=== PATIENT | male | born 1940 | race Caucasian/White ===

== ENCOUNTER 2020-08-26 08:42 | Inpatient (IN) | payer OTHER, MEDICARE, SELFPAY ==
--- NOTE | ~2020-08-26 | CT_ITS ---
EXAMINATION: CT ABDOMEN AND PELVIS WITHOUT CONTRAST CLINICAL INFORMATION: Nausea, vomiting and abdominal pain. Dark emesis. COMPARISON: None TECHNIQUE: Multidetector volumetric imaging was performed from the superior aspect of the liver through the pubic symphysis. Sagittal and coronal reformatted images were obtained on the technologist's workstation. This CT examination was performed using dose optimization techniques as appropriate, variously including the following: *Automated exposure control *Adjustment of mA and/or kV according to patient size (this includes techniques or standardized protocols for targeted exams where dose is matched to indication/reason for exam; i.e. extremities or head) *Use of iterative reconstruction technique DLP: 835 mGy-cm FINDINGS: LUNG BASES: The visualized lung bases are unremarkable. LIVER, GALLBLADDER, AND BILIARY TREE: The liver is normal in size, shape, and attenuation. There are several hypodense liver lesions. Largest right hepatic lobe lesion measures 1.9 cm and left hepatic lobe lesion measures 1.4 cm. The measures cystic density. No solid lesions seen. There is no intraparenchymal dislocation.. The gallbladder is unremarkable with no evidence of radiopaque gallstones, gallbladder wall thickening, or obvious pericholecystic inflammatory changes. PANCREAS: Unremarkable. SPLEEN: There is a 1.4 cm hypodense lesion. The spleen is otherwise unremarkable. ADRENAL GLANDS: The right adrenal gland is unremarkable. The left adrenal gland is not visualized. In its place a small calcifications KIDNEYS AND URETERS: The left kidney is small and atrophied. The right kidney appears normal size. There is bilateral perinephric stranding. There is a nonobstructive 6 radiopaque calculi mid pole left kidney. There is left renal upper pole cortex atrophy with calcification. BLADDER: Unremarkable. GASTROINTESTINAL TRACT: There is a left lower quadrant colostomy with diffuse sigmoid diverticulosis. No mural thickening seen. There are prominent multiple small bowel air-fluid levels. There is an anastomotic suture line along the ascending colon/small bowel likely anastomosis in right lower quadrant with proximal small bowel dilatation likely site of narrowing. However hard to say if this is narrowing, mural thickening from underlying inflammation or recurrent lesion. There is presacral soft tissue thickening, scarring and sutures representing a small soft tissue mass in presacral region. ABDOMINAL WALL: There is a left-sided colostomy with colonic diverticulosis. LYMPH NODES: No abnormal lymph nodes seen. VASCULAR: Unremarkable. PELVIC VISCERA: The prostate gland is normal size. OSSEOUS STRUCTURES: Degenerative disc changes with vacuum disc phenomena L4-L5 disc level. CT/CT abdomen pelvis wo con IMPRESSION: Extensive postsurgical changes in the presacral region with a soft tissue mass likely a huge granulation tissue. There is a anastomotic suture line in the right lower quadrant likely an anastomosis between small bowel and the right colon. Proximal to this there are multiple dilated small bowel loops with air-fluid levels. This may be a site of partial obstruction or narrowing. There is some mural thickening in this region at the anastomotic site and may represent inflammation infection or recurrent underlying lesion. This area can be evaluated small bowel series if clinically deemed necessary. Left colonic diverticulosis without diverticulitis. Small atrophic kidney with diffuse cortical thinning and calcification in the upper and midpole with a small radiopaque calculi mid pole. There is no hydronephrosis seen. The left adrenal gland is not seen. There are multiple hepatic cysts.
[2020-08-26 08:48] VITALS: BP 144/72; PULSE 72; RESP 17; TEMP 36.6; O2SAT 95; BMI 23.7
--- NOTE | 2020-08-26 09:08 | ECG_ITS ---
Test Reason : WEAKNESS Blood Pressure : / mmHG Vent. Rate : 063 BPM Atrial Rate : 063 BPM P-R Int : 164 ms QRS Dur : 140 ms QT Int : 474 ms P-R-T Axes : 055 -80 036 degrees QTc Int : 485 ms Normal sinus rhythm Right bundle branch block Left anterior fascicular block Bifascicular block Abnormal ECG When compared with ECG of 13-APR-2019 09:48, Nonspecific T wave abnormality has replaced inverted T waves in Inferior leads Nonspecific T wave abnormality now evident in Anterior leads Referred By: Tenisha Yo Electronically Signed By:Tejas Alvarez
--- NOTE | 2020-08-26 09:42 | ED.ABDPAIN ---
HPI - Abdominal Pain General Chief Complaint: Abdominal Pain Stated Complaint: dehydration Time Seen by Provider: 08/26/20 08:55 Source: patient Mode of arrival: ambulatory History of Present Illness HPI narrative: 79-year-old male with a past medical history of DM, HLD, HTN, PTSD, CVA, Colon Ca, colostomy, BIBA c/o diffuse abdominal discomfort, nausea, and dark emesis x1 this morning. Also reports decreased p.o. intake and decreased BM's from colostomy bag. Reports generalized fatigue. Denies fever, chills, lightheadedness/dizziness, hematemesis, dark/bloody stool, diarrhea, CP/SOB, dysuria/hematuria, LE edema Related Data Allergies Allergy/AdvReac Type Severity Reaction Status Date / Time erythromycin base Allergy Severe TREMORS Unverified 10/28/19 15:06 [ERYTHROMYCIN BASE] morphine [MORPHINE] Allergy Severe HALLUCINATI Unverified 10/28/19 15:06 ONS acetaminophen [Percocet] Allergy Unknown Verified 10/05/18 00:00 oxycodone [Percocet] Allergy Unknown Verified 10/05/18 00:00 From COMPAZINE Allergy Severe DYSTONIA Uncoded 10/28/19 15:06 From Percocet Allergy Severe TREMORS/ORAL Uncoded 10/28/19 15:06 TATION Compazine Allergy Unknown Uncoded 10/05/18 00:00 Erythromycin Allergy Unknown Uncoded 10/05/18 00:00 Review of Systems Review of Systems Constitutional: No Fever, No Chills, + Fatigue, No Malaise ENT/Mouth: No Ear Pain, No Nasal Congestion, No sore throat, No Rhinorrhea Cardiovascular: No Chest Pain, No SOB, No Edema Respiratory: No Cough, No Dyspnea Gastrointestinal: + Nausea, + Vomiting, No Diarrhea, + Constipation, No Abdominal pain, No Hematochezia, No Melena, +Hematemesis Genitourinary: No Dysuria, No Urinary Frequency, No Hematuria Musculoskeletal: No joint pain, No Myalgias Skin: No Skin Lesions, No rash Neuro: No Weakness, No Dizziness, No Headache Yes all other systems are reviewed and are negative Physical Exam Vital Signs: Vital Signs: Last Vital Signs Temp 98 F 08/26/20 08:48 Pulse 71 08/26/20 11:28 Resp 14 08/26/20 11:28 BP 140/71 H 08/26/20 11:28 Pulse Ox 97 08/26/20 11:28 Body Mass Index 23.7 Const: General: cooperative, healthy appearing and no acute distress Orientation/consciousness: patient oriented x3 Limitations: no limitations HENMT: Head: Yes normal to inspection and Yes normocephalic Ears: hearing grossly normal bilaterally General nose exam: Normal external nose present Face and sinus: Yes normal facial exam Eyes: General: appearance normal, both eyes and all related structures EOM: EOMs intact bilaterally Neck: Neck: Yes normal visual inspection Resp: Effort & Inspection: normal respiratory effort Auscultation: clear to auscultation bilaterally, no rales, no rhonchi and no wheezes Cardio: Rate: regular rate Heart sounds: S1 normal heart sound present and S2 normal heart sound present GI: Other: Colostomy present in left lower quadrant. Colostomy bag near empty. Minimal brown stool noted Inspection: Yes normal to inspection Palpation (GI): Soft to palpation, Tenderness to palpation present (GI) in the LLQ, no guarding and not rigid Skin: Rashes: no rashes Wounds: no wounds Neuro: General: patient oriented x3, tone normal and moves all extremities Extrem: General: Yes normal to inspection Course Course Course Narrative: -mild leukocytosis of 12.4. H&H is stable, +ESTUARDO with creatinine 2.48 > will give IVF and repeat -occult stool negative CT abdomen pelvis wo con IMPRESSION: Extensive postsurgical changes in the presacral region with a soft tissue mass likely a huge granulation tissue. There is a anastomotic suture line in the right lower quadrant likely an anastomosis between small bowel and the right colon. Proximal to this there are multiple dilated small bowel loops with air-fluid levels. This may be a site of partial obstruction or narrowing. There is some mural thickening in this region at the anastomotic site and may represent inflammation infection or recurrent underlying lesion. This area can be evaluated small bowel series if clinically deemed necessary. Left colonic diverticulosis without diverticulitis. Small atrophic kidney with diffuse cortical thinning and calcification in the upper and midpole with a small radiopaque calculi mid pole. There is no hydronephrosis seen. The left adrenal gland is not seen. There are multiple hepatic cysts. >> surgery consulted. Lactic/blood cultures and empiric IV Zosyn ordered MDM - Abdominal Pain MDM Narrative Medical decision making narrative: 79-year-old male with a past medical history of DM, HLD, HTN, PTSD, CVA, Colon Ca, colostomy, BIBA c/o diffuse abdominal discomfort, nausea, and dark emesis x1 this morning. Also reports decreased p.o. intake and decreased BM's from colostomy bag. On exam VSS, NAD/well-appearing, abdomen soft with LLQ ttp, no rebound or guarding, minimal brown stool noted in colostomy bag. Concern for GI bleed vs SBO vs dehydration. Rule out metabolic/infectious etiology. Low concern for ACS Plan: EKG, labs, UA, CT AP, IVF, reassess Medical Records Attestation: I reviewed the patient's medical records. Lab Data Attestation: I reviewed the patient's lab results. Result diagrams: 08/26/20 10:08/26/20 10:01 Labs: Lab Results 08/26/20 08/26/20 08/26/20 Range/Units 10:01 10:01 10:01 WBC 12.4 H (4.8-10.8) X10*3/uL RBC 4.35 L (4.60-5.80) X10*6/uL Hgb 12.9 L (14.0-18.0) g/dl Hct 38.4 L (42-52) % MCV 88.3 (80-98) fL MCH 29.7 (27.0-33.0) pg MCHC 33.6 (31.0-36.0) g/dl RDW 14.2 (11.0-16.0) % Plt Count 230 (160-400) X10*3/uL MPV 10.5 (9.4-12.4) fL Immature Gran % (Auto) 0.2 (0.0-0.4) % Neut % (Auto) 81.5 H (45-73) % Lymph % (Auto) 9.6 L (20-40) % [place] % (Auto) 8.2 (2-11) % Eos % (Auto) 0.3 (0-4) % Baso % (Auto) 0.2 (0-2) % Lymph # (Auto) 1.2 (1.2-4.9) X10*3/uL [place] # (Auto) 1.0 (0.1-1.2) X10*3/uL Eos # (Auto) 0.0 (0.0-0.4) X10*3/uL Baso # (Auto) 0.0 (0.0-0.2) X10*3/uL Abs Immat Gran (auto) 0.03 (0.00-0.03) X10*3/uL Absolute Neuts (auto) 10.1 H (2.0-8.3) X10*3/uL Absolute Nucleated RBC 0.000 (0.0-0.012) X10*3/uL Nucleated RBC % (auto) 0.0 (0.0-0.2) /100WBC PT 12.9 (9.9-13.0) SEC INR 1.1 (0.9-1.1) APTT 29.7 (24.1-38.0) SEC Sodium 138 (135-145) mmol/L Potassium 4.1 (3.3-5.1) mmol/L Chloride 104 (96-108) mmol/L Carbon Dioxide 24 (22-29) mmol/L Anion Gap 14 (12-20) BUN 29 H (9-16) mg/dL Creatinine 2.48 H (0.5-1.4) mg/dL Estim Creat Clear Calc 24.8 Estimated GFR 25 Random Glucose 169 H (60-115) mg/dL Calcium 9.7 (8.4-10.2) mg/dL Magnesium 1.7 (1.6-2.6) mg/dL Total Bilirubin 0.8 (0.0-1.0) mg/dL Direct Bilirubin 0.3 (0.0-0.5) mg/dL AST 18 (5-37) U/L ALT 14 (0-40) U/L Alkaline Phosphatase 82 (39-117) U/L Total Protein 6.8 (6.5-8.0) g/dL Albumin 3.9 (3.5-5.0) g/dL Lipase (8-78) U/L Stool Occult Blood (NEGATIVE) 08/26/20 08/26/20 Range/Units 10:01 10:01 WBC (4.8-10.8) X10*3/uL RBC (4.60-5.80) X10*6/uL Hgb (14.0-18.0) g/dl Hct (42-52) % MCV (80-98) fL MCH (27.0-33.0) pg MCHC (31.0-36.0) g/dl RDW (11.0-16.0) % Plt Count (160-400) X10*3/uL MPV (9.4-12.4) fL Immature Gran % (Auto) (0.0-0.4) % Neut % (Auto) (45-73) % Lymph % (Auto) (20-40) % [place] % (Auto) (2-11) % Eos % (Auto) (0-4) % Baso % (Auto) (0-2) % Lymph # (Auto) (1.2-4.9) X10*3/uL [place] # (Auto) (0.1-1.2) X10*3/uL Eos # (Auto) (0.0-0.4) X10*3/uL Baso # (Auto) (0.0-0.2) X10*3/uL Abs Immat Gran (auto) (0.00-0.03) X10*3/uL Absolute Neuts (auto) (2.0-8.3) X10*3/uL Absolute Nucleated RBC (0.0-0.012) X10*3/uL Nucleated RBC % (auto) (0.0-0.2) /100WBC PT (9.9-13.0) SEC INR (0.9-1.1) APTT (24.1-38.0) SEC Sodium (135-145) mmol/L Potassium (3.3-5.1) mmol/L Chloride (96-108) mmol/L Carbon Dioxide (22-29) mmol/L Anion Gap (12-20) BUN (9-16) mg/dL Creatinine (0.5-1.4) mg/dL Estim Creat Clear Calc Estimated GFR Random Glucose (60-115) mg/dL Calcium (8.4-10.2) mg/dL Magnesium (1.6-2.6) mg/dL Total Bilirubin (0.0-1.0) mg/dL Direct Bilirubin (0.0-0.5) mg/dL AST (5-37) U/L ALT (0-40) U/L Alkaline Phosphatase (39-117) U/L Total Protein (6.5-8.0) g/dL Albumin (3.5-5.0) g/dL Lipase 22 (8-78) U/L Stool Occult Blood NEGATIVE (NEGATIVE) ECG Data Attestation: I personally reviewed and interpreted this ECG as follows: ECG interpretation date: 08/26/20 ECG interpretation time: 09:54 Interpretation: EKG normal sinus rhythm with a right bundle-branch block. Rate of 63. Nonischemic/no STEMI [facility] Past Medical History Attestation statement: The following information was validated with the patient. Medical History (Updated 08/26/20 @ 08:52 by Gianni Chan) Cancer of kidney Colon cancer Colostomy in place Diabetes type 2, controlled High cholesterol HTN (hypertension) PTSD (post-traumatic stress disorder) Stroke Social History Social History Alcohol intake: never Patient Tobacco Use Status: Never used Tobacco Use of substances other than those prescribed or required for medical reasons: No Advance Directives: No Advance Directives Information Provided: Yes
[2020-08-26 10:06] LABS: Basophils Percent Auto 0.2 % (0-2); Eosinophils Percent Auto 0.3 % (0-4); Hematocrit 38.4 % (42-52); Hemoglobin 12.9 g/dl (14.0-18.0); Imm Gran Abs Auto 0.03 X10*3/uL (0.00-0.03); Imm Gran Pct Auto 0.2 % (0.0-0.4); Lymphocytes Absolute Auto 1.2 X10*3/uL (1.2-4.9); Lymphocytes Percent Auto 9.6 % (20-40); MANUAL DIFF FLAG NO; Mean Corpuscular HGB Conc 33.6 g/dl (31.0-36.0); Mean Corpuscular Hemoglobin 29.7 pg (27.0-33.0); Mean Corpuscular Volume 88.3 fL (80-98); Mean Platelet Volume 10.5 fL (9.4-12.4); Monocytes Percent Auto 8.2 % (2-11); Neutrophils Absolute Auto 10.1 X10*3/uL (2.0-8.3); Neutrophils Percent Auto 81.5 % (45-73); Platelet Count 230 X10*3/uL (160-400); Red Blood Count 4.35 X10*6/uL (4.60-5.80); Red Cell Distribution Width 14.2 % (11.0-16.0); White Blood Count 12.4 X10*3/uL (4.8-10.8)
[2020-08-26] MEDS: ondansetron HCL 4 MG/2 ML VIAL IVPUSH (10:07)
[2020-08-26] MEDS: 0.9 % Sodium Chloride 1,000 ML 999 ML IVCONT ×2 (10:08→12:01)
[2020-08-26 10:11] LABS: OBS Int Ctl Valid YES; OBS1 NEGATIVE (NEGATIVE)
[2020-08-26 10:12] LABS: INTERNATIONAL NORM RATIO 1.1 (0.9-1.1); Prothrombin Time 12.9 SEC (9.9-13.0)
--- NOTE | 2020-08-26 10:12 | PC.NURSE ---
IV placed to left AC. Blood obtained and sent to lab. Pt medicated with IVF and Zofran for nausea. VSS
[2020-08-26 10:15] LABS: Partial Thromboplastin Time 29.7 SEC (24.1-38.0)
[2020-08-26 10:35] LABS: Lipase 22 U/L (8-78)
[2020-08-26 10:37] LABS: Alanine Aminotransferase 14 U/L (0-40); Albumin Level 3.9 g/dL (3.5-5.0); Alkaline Phosphatase 82 U/L (39-117); Anion Gap 14 (12-20); Aspartate Amino Transferase 18 U/L (5-37); Bilirubin Direct 0.3 mg/dL (0.0-0.5); Bilirubin Total 0.8 mg/dL (0.0-1.0); Blood Urea Nitrogen 29 mg/dL (9-16); Calcium 9.7 mg/dL (8.4-10.2); Carbon Dioxide 24 mmol/L (22-29); Chloride 104 mmol/L (96-108); Creatinine Clr Calc Pharmacy 24.8; Estimated Glomerular Filt Rate 25; Glucose Random 169 mg/dL (60-115); Magnesium 1.7 mg/dL (1.6-2.6); Potassium 4.1 mmol/L (3.3-5.1); Sodium 138 mmol/L (135-145); Total Protein 6.8 g/dL (6.5-8.0)
[2020-08-26 11:28] VITALS: BP 140/71; PULSE 71; RESP 14; O2SAT 97
--- NOTE | 2020-08-26 11:30 | PC.NURSE ---
Pt resting quietly. States his nausea has improved. VSS. Awaiting dispositino at this time.
[2020-08-26] MEDS: Piperacillin Sodium/Tazobactam 2.25 GM in 0.9 % Sodium Chloride 50 ML IV (12:01)
[2020-08-26 14:02] VITALS: BP 123/67; PULSE 71; RESP 18; TEMP 36.6; O2SAT 96
--- NOTE | 2020-08-26 14:17 | PC.NURSE ---
Ostomy filled and emptied large amount of pasty stool. Ostomy then filled again about 5minutes later with a large ammount of watery stool. The ostomy was drained again and cleaned. Mirilax held at this time. and Tenisha mendosa.
[2020-08-26 14:24] LABS: Glucose Urine UA NEG (NEG); Leukocyte Esterase Urine 1+ (NEG); Nitrite Urine NEG (NEG); PH 5.5 (5.0-8.0); Specific Gravity - Urine 1.025 (1.005-1.025); UACC Culture Trigger YES; Urine Blood NEG (NEG); Urine Ketones NEG (NEG); Urine Protein 3+ MG/DL (NEG-TRACE)
[2020-08-26 14:40] LABS: Appearance Urine CLOUDY; Color Urine YELLOW
[2020-08-26 14:41] LABS: Bacteria Urine 2+ /LPF; RBC Urine 0 /HPF (0)
[2020-08-26 14:58] VITALS: PULSE 63; RESP 18; O2SAT 95
--- NOTE | 2020-08-26 15:11 | P.HPGS_ITS ---
History of Present Illness History of Present Illness Date of Service: 08/26/20 Chief complaint: Small bowel obstruction, history of rectal cancer Narrative: Ronny Vernon is a 79 year old male With a past history of diabetes mellitus, hyperlipidemia, hypertension, PTSD from his career in the [employer] during the [place] [employer], previous CVA, rectal cancer status post APR. He reports several episodes of small-bowel obstruction following this procedure which required enterolysis. He returns to the hospital with complaints of diffuse abdominal discomfort, nausea, vomiting and minimal to no output from his ostomy for the past 2 days. He also reports generalized fatigue but denies fever, chills, bloody stool, cough, shortness of breath or chest pain. He was evaluated in the emergency department and noted to have an elevated WBC, elevated BUN creatinine just above acute kidney injury due to dehydration from the nausea and vomiting. CT of the abdomen and pelvis revealed Extensive scar tissue in the pelvis with dilated loops of small bowel with air-fluid level suggestive of a small-bowel obstruction. He is admitted to the surgical service for management of this small-bowel obstruction. Review of Systems Review of Systems: Yes all other systems are reviewed and are negative Constitutional: Constitutional: Denies chills, Denies fever(s), Reports lethargy, Reports malaise and Reports poor appetite Cardiovascular: Cardiovascular: Denies chest pain, Denies rapid heart rate, Denies irregular heart rhythm and Denies dyspnea Respiratory: Respiratory: Denies chest congestion, Denies cough, Denies dyspnea and Denies wheezing Gastrointestinal: Gastrointestinal: Reports abdominal pain, Reports bloating, Denies hematochezia, Denies coffee ground emesis, Reports constipation, Reports nausea and Reports vomiting Neurologic: Comments: Previous CVA Psychiatric: Psychiatric: Reports anxiety Comments: posttraumatic stress disorder Allergic/Immunologic: Allergic/Immunologic: Denies wheezing PMFSH Past Medical History Medical History (Updated 08/26/20 @ 15:25 by Pato Brandt MD) Cancer of kidney Colon cancer Colostomy in place Diabetes type 2, controlled High cholesterol HTN (hypertension) PTSD (post-traumatic stress disorder) Stroke Social History Social History Alcohol intake: never Patient Tobacco Use Status: Never used Tobacco Use of substances other than those prescribed or required for medical reasons: No Advance Directives: No Advance Directives Information Provided: Yes Meds Allergies Allergy/AdvReac Type Severity Reaction Status Date / Time erythromycin base Allergy Severe TREMORS Verified 08/26/20 12:00 [ERYTHROMYCIN BASE] morphine [MORPHINE] Allergy Severe HALLUCINATI Verified 08/26/20 12:00 ONS From COMPAZINE Allergy Severe DYSTONIA Uncoded 08/26/20 12:00 From Percocet Allergy Severe TREMORS/ORAL Uncoded 08/26/20 12:00 TATION Active Medications: Current Medications Generic Name Dose Route Start Last Admin Trade Name Freq PRN Reason Stop Dose Admin Acetaminophen 650 mg 08/26/20 14:58 Acetaminophen 325 Mg Tablet PO Q6H PRN Pain, Mild (Pain Scale 1-3) Docusate Sodium 100 mg 08/26/20 21:00 Docusate Sodium 100 Mg Capsule PO BID [facility] Lactated Ringer's 1,000 mls @ 100 mls/hr 08/26/20 14:58 Lr IVCONT .Q10H CARMELINA Ondansetron HCl 4 mg 08/26/20 14:58 Ondansetron Hcl 4 Mg/2 Ml Vial IVPUSH Q8H PRN Nausea Sodium Chloride 3 ml 08/26/20 16:00 0.9 % Sodium Chloride Flush 3 Ml Syringe IVFLUSH QSHIFT [facility] Home Medications Medication Instructions Recorded Confirmed Last Taken Type acetaminophen 650 mg PO BEDTIME 08/26/20 08/26/20 08/25/20 History amlodipine 1 tab PO BID 08/26/20 08/26/20 08/25/20 History ascorbic acid (vitamin C) [Vitamin 500 mg PO BID 08/26/20 08/26/20 08/25/20 History C] aspirin-dipyridamole [Aggrenox] 1 cap PO BID 08/26/20 08/26/20 08/25/20 History atorvastatin 10 mg PO BEDTIME 08/26/20 08/26/20 08/25/20 History calcium carbonate 1,300 mg PO DAILY 08/26/20 08/26/20 08/25/20 History carvedilol 6.25 mg PO BID 08/26/20 08/26/20 08/25/20 History cholecalciferol (vitamin D3) 50 mcg PO DAILY 08/26/20 08/26/20 08/25/20 History [Vitamin D3] coenzyme Q10 [CoQ-10] 300 mg PO DAILY 08/26/20 08/26/20 08/25/20 History docusate sodium [Colace] 100 mg PO DAILY 08/26/20 08/26/20 08/25/20 History duloxetine 1 cap PO DAILY 08/26/20 08/26/20 08/25/20 History famotidine 20 mg PO BID 08/26/20 08/26/20 08/25/20 History glipizide 1 tab PO DAILY 08/26/20 08/26/20 08/25/20 History hydralazine 50 mg PO BID 08/26/20 08/26/20 08/25/20 History lisinopril 5 mg PO DAILY 08/26/20 08/26/20 08/25/20 History magnesium oxide 1 tab PO DAILY 08/26/20 08/26/20 08/25/20 History mecobalamin (vitamin B12) [B12 500 mcg PO DAILY MRX1 08/26/20 08/26/20 08/25/20 History Active] melatonin 10 mg PO BEDTIME 08/26/20 08/26/20 08/25/20 History multivitamin 1 tab PO DAILY 08/26/20 08/26/20 08/25/20 History ondansetron 4 mg PO Q6H PRN 08/26/20 08/26/20 08/25/20 History potassium 650 mg PO DAILY 08/26/20 08/26/20 08/25/20 History ranitidine HCl [Zantac] 300 mg PO BEDTIME 08/26/20 08/26/20 08/25/20 History Physical Exam Vital Signs: Vital Signs: Last Vital Signs Temp 97.8 F 08/26/20 14:02 Pulse 71 08/26/20 14:02 Resp 18 08/26/20 14:02 BP 123/67 08/26/20 14:02 Pulse Ox 96 08/26/20 14:02 Body Mass Index 23.7 Const: General: cooperative, comfortable, no acute distress, alert and awake Nutritional Appearance: well nourished Orientation/consciousness: patient oriented x3 Limitations: no limitations HENMT: Head: Yes normocephalic and Yes atraumatic Ears: hearing grossly normal bilaterally Neck: Neck: Yes trachea midline, Yes supple and Yes no JVD Resp: Effort & Inspection: normal respiratory effort, no audible wheezes and no cough Auscultation: clear to auscultation bilaterally Cardio: Jugular venous distension: no JVD Rate: regular rate Rhythm: regular rhythm Heart sounds: S1 normal heart sound present and S2 normal heart sound present GI: Inspection: Yes normal to inspection Palpation (GI): Soft to palpation, nontender, no guarding, not rigid and hepatosplenomegaly present Percussion: Yes normal to percussion Auscultation: normal bowel sounds Abdomen image: 1. ostomy in the left lower quadrant Skin: Other: warm, dry, no rash Neuro: General: patient oriented x3 Extrem: General: Yes no clubbing, cyanosis or edema Results Results Labs: Short CBC 08/26/20 Range/Units 10:01 WBC 12.4 H (4.8-10.8) X10*3/uL Hgb 12.9 L (14.0-18.0) g/dl Hct 38.4 L (42-52) % Plt Count 230 (160-400) X10*3/uL BMP 08/26/20 10:01 Sodium 138 Potassium 4.1 Chloride 104 Carbon Dioxide 24 BUN 29 H Creatinine 2.48 H Calcium 9.7 Liver Function 08/26/20 Range/Units 10:01 Total Bilirubin 0.8 (0.0-1.0) mg/dL Direct Bilirubin 0.3 (0.0-0.5) mg/dL AST 18 (5-37) U/L ALT 14 (0-40) U/L Alkaline Phosphatase 82 (39-117) U/L Albumin 3.9 (3.5-5.0) g/dL Urine 08/26/20 Range/Units 14:02 Urine Color YELLOW Urine Appearance CLOUDY Urine pH 5.5 (5.0-8.0) Ur Specific [place] 1.025 (1.005-1.025) Urine Protein 3+ H (NEG-TRACE) MG/DL Urine Glucose (UA) NEG (NEG) MG/DL Assessment and Plan (1) Partial small bowel obstruction: Status: Acute patient has a previous history of multiple episodes of small-bowel obstruction. This required exploratory laparotomy and bowel resection on several occasions making additional surgical intervention difficult. His most recent episode occurred in 2007 at [facility]. The patient is comfortable but does have a mildly elevated WBC. This may be related to his dehydration and acute kidney injury. I will keep him NPO and on IV fluids and await return of bowel function. If there is no improvement an upper GI small- bowel series may be required. (2) ESTUARDO (acute kidney injury): Status: Acute Continue with IV fluid hydration, repeat labs in a.m. (3) Diabetes type 2, controlled: Status: Acute hospitalist consultation requested. Will start insulin sliding scale Quality Stroke Does the patient have a stroke diagnosis?: Yes Reason for No Anti-thrombotic by Day Two: N/A - Med Ordered VTE Prior VTE?: No VTE Risk Level:: Surgical - high VTE Device Contraindication: N/A - Device Ordered VTE Drug Contraindication: N/A - Med Ordered Procedures Date of Service Date of Service: 08/26/20
--- NOTE | 2020-08-26 15:40 | PC.NURSE ---
ostomy emptied at this time, completely full
[2020-08-26 15:46] LABS: COVID-19 Test Negative (Negative); IDNOW Serial# 9DD0AD1C
[2020-08-26] MEDS: Lactated Ringers 1,000 ML 100 ML IVCONT (16:39)
[2020-08-26] MEDS: 0.9 % Sodium Chloride Flush 3 ML SYRINGE IVFLUSH (16:40)
[2020-08-26 19:06] VITALS: BP 165/84; PULSE 65; RESP 16; TEMP 36.7; O2SAT 96
[2020-08-26 20:44] LABS: Glucose, Whole Blood 111 mg/dL (60-115)
[2020-08-26] MEDS: Enoxaparin Sodium 30 MG/0.3 ML SYRINGE SUBCUT (21:30)
[2020-08-26] MEDS: Docusate Sodium 100 MG CAPSULE PO (21:30)
[2020-08-26 23:16] VITALS: BP 170/84; PULSE 71; RESP 16; TEMP 36.6; O2SAT 92
[2020-08-27] VITALS (8 sets, daily range): BP systolic 153–179; BP diastolic 70–84; PULSE 57–71; RESP 16–18; TEMP 36.2–36.8; O2SAT 93–98
[2020-08-27] MEDS: Lactated Ringers 1,000 ML 100 ML IVCONT ×2 (04:29→14:14)
[2020-08-27 06:26] LABS: MANUAL DIFF FLAG NO
[2020-08-27 06:36] LABS: Basophils Percent Auto 0.4 % (0-2); Eosinophils Absolute Auto 0.2 X10*3/uL (0.0-0.4); Hematocrit 32.5 % (42-52); Hemoglobin 10.6 g/dl (14.0-18.0); Imm Gran Abs Auto 0.03 X10*3/uL (0.00-0.03); Imm Gran Pct Auto 0.4 % (0.0-0.4); Lymphocytes Absolute Auto 1.7 X10*3/uL (1.2-4.9); Lymphocytes Percent Auto 22.5 % (20-40); Mean Corpuscular HGB Conc 32.6 g/dl (31.0-36.0); Mean Corpuscular Hemoglobin 29.8 pg (27.0-33.0); Mean Corpuscular Volume 91.3 fL (80-98); Mean Platelet Volume 10.9 fL (9.4-12.4); Monocytes Absolute Auto 0.8 X10*3/uL (0.1-1.2); Monocytes Percent Auto 10.4 % (2-11); Neutrophils Absolute Auto 4.8 X10*3/uL (2.0-8.3); Neutrophils Percent Auto 64.3 % (45-73); Platelet Count 180 X10*3/uL (160-400); Red Blood Count 3.56 X10*6/uL (4.60-5.80); Red Cell Distribution Width 14.3 % (11.0-16.0); White Blood Count 7.5 X10*3/uL (4.8-10.8)
[2020-08-27 07:06] LABS: Anion Gap 12 (12-20); Blood Urea Nitrogen 24 mg/dL (9-16); Calcium 8.6 mg/dL (8.4-10.2); Carbon Dioxide 21 mmol/L (22-29); Chloride 114 mmol/L (96-108); Creatinine Clr Calc Pharmacy 29.2; Estimated Glomerular Filt Rate 30; Glucose Random 104 mg/dL (60-115); Potassium 3.8 mmol/L (3.3-5.1); Sodium 143 mmol/L (135-145)
[2020-08-27 07:52] LABS: Glucose, Whole Blood 104 mg/dL (60-115)
--- NOTE | 2020-08-27 08:14 | PM.PNGS ---
Subjective Subjective Date of Service: 08/27/20 Interval history: Patient feels much improved. Has had several bowel movements per ostomy. Feels hungry would like to try a diet. Physical Exam Vital Signs: Vital Signs: Last Vital Signs Temp 98.2 F 08/27/20 07:41 Pulse 71 08/27/20 07:41 Resp 16 08/27/20 07:41 BP 155/82 H 08/27/20 07:41 Pulse Ox 96 08/27/20 07:41 Body Mass Index 23.7 Const: General: comfortable and no acute distress Nutritional Appearance: well nourished Orientation/consciousness: patient oriented x3 Limitations: no limitations Resp: Effort & Inspection: normal respiratory effort, no cough and no stridor GI: Other: Stool in ostomy bag Inspection: Yes normal to inspection Palpation (GI): Soft to palpation, nontender, no guarding, not rigid and hepatosplenomegaly present Percussion: Yes normal to percussion Auscultation: normal bowel sounds Neuro: General: patient oriented x3 Extrem: General: Yes no clubbing, cyanosis or edema Progress Note: A&P Assessment and plan (1) Partial small bowel obstruction: Status: Acute Assessment and Plan: Small-bowel obstruction has resolved. Patient now has soft abdomen with stool in his ostomy. We will start a diet today. If this is well tolerated he will be ready for discharge possibly tomorrow morning. (2) ESTUARDO (acute kidney injury): Status: Acute Assessment and Plan: BUN creatinine are improving with IV hydration. Fall Risk Details Current Medications: Current Medications Generic Name Dose Route Start Last Admin Trade Name Freq PRN Reason Stop Dose Admin Acetaminophen 650 mg 08/26/20 14:58 Acetaminophen 325 Mg Tablet PO Q6H PRN Pain, Mild (Pain Scale 1-3) Docusate Sodium 100 mg 08/26/20 21:00 08/26/20 21:30 Docusate Sodium 100 Mg Capsule PO 100 mg BID CARMELINA Administration Enoxaparin Sodium 30 mg 08/26/20 21:00 08/26/20 21:30 Enoxaparin Sodium 30 Mg/0.3 Ml Syringe SUBCUT 30 mg Q24H CARMELINA Administration Lactated Ringer's 1,000 mls @ 100 mls/hr 08/26/20 14:58 08/27/20 04:29 Lr IVCONT 100 mls/hr .Q10H CARMELINA Administration Insulin Human Lispro 0 unit 08/26/20 16:30 08/26/20 21:34 Insulin Lispro 100 Unit/Ml 3 Ml Vial SUBCUT 08/27/20 15:28 Not Given QIDACHS [facility] Protocol Ondansetron HCl 4 mg 08/26/20 14:58 Ondansetron Hcl 4 Mg/2 Ml Vial IVPUSH Q8H PRN Nausea Sodium Chloride 3 ml 08/26/20 16:00 08/27/20 00:29 0.9 % Sodium Chloride Flush 3 Ml Syringe IVFLUSH Not Given QSHIFT [facility] Time Spent With Patient Time: Total time spent is greater than 50% in coordination of care (as documented) at patient's floor/unit and/or counseling patient: Time with patient: 15 - 24 minutes Procedures Date of Service Date of Service: 08/27/20 Quality Stroke Does the patient have a stroke diagnosis?: Yes Reason for No Anti-thrombotic by Day Two: N/A - Med Ordered VTE Prior VTE?: No VTE Risk Level:: Surgical - high VTE Device Contraindication: N/A - Device Ordered VTE Drug Contraindication: N/A - Med Ordered
[2020-08-27] MEDS: Docusate Sodium 100 MG CAPSULE PO ×2 (08:18→20:46)
--- NOTE | 2020-08-27 08:26 | P.CONIM_ITS ---
History of Present Illness Data of Consult Service Date: 08/27/20 Requesting physician: Pato Brandt Primary Care Provider: MD JUANIS Swift Reason for consult: Medical management 79 year old male With a past history of diabetes mellitus, hyperlipidemia, hypertension, PTSD ([place] War)previous CVA. as per chart review:He reports several episodes of small-bowel obstruction following this procedure which required enterolysis. He came to the hospital with complaints of diffuse abdominal discomfort, nausea, vomiting and minimal to no output from his ostomy for the past 2 days. In ED emergency found to have an elevated WBC, elevated BUN creatinine just above acute kidney injury due to dehydration from the nausea and vomiting. CT of the abdomen and pelvis revealed Extensive scar tissue in the pelvis with dilated loops of small bowel with air-fluid level suggestive of a small- bowel obstruction. He is admitted to the surgical service for management of this small-bowel obstruction. He also reports generalized fatigue but denies fever, chills, bloody stool, cough, shortness of breath or chest pain. PAST MEDICAL HISTORY: 1. History of stroke with mild residual right-sided weakness. 2. History of colon cancer, status post colon resection and colostomy formation. 3. Type 2 diabetes. 4. History of DVT. 5. CKD stage 3. 6. Hypertension. 7. PTSD. 8. History of duodenal ulcer. 9. Renal cell carcinoma, status post partial left nephrectomy. 10. BPH. PAST SURGICAL HISTORY: 1. Colostomy in 1994, small bowel resection. 2. Multiple surgeries to the bowels. 3. Partial left kidney resection in 2007. 4. TURP. 5. Cataract surgery. FAMILY HISTORY: Significant for stroke in his father and breast cancer in his mother. SOCIAL HISTORY: The patient resides with his . He ambulates with the use of a walker. He denies use of tobacco, alcohol, or illicit substances. Review of Systems Review of Systems: General: No: Fever. HEENT: No: Vision change. no Nasal congestion. Cardiovascular:No Chest Pain/Pressure. Pulmonary:No Shortness of breath or cough. Gastrointestinal:No Abdominal Pain or urinary burning. Skin: No: Rash. Neurological:No Weakness. Psychiatric:no Anxiety. abd; no pain or nausea now All other systems: reviewed and negative [facility] Medical History Cancer of kidney Colon cancer Colostomy in place Diabetes type 2, controlled High cholesterol HTN (hypertension) PTSD (post-traumatic stress disorder) Stroke Social History Household Members: Spouse Housing: House Do you presently have visiting nurse or other home services: No Alcohol intake: never Patient Tobacco Use Status: Never used Tobacco service: Yes Current occupational status: retired Meds Allergies Allergy/AdvReac Type Severity Reaction Status Date / Time erythromycin base Allergy Severe TREMORS Verified 08/26/20 12:00 [ERYTHROMYCIN BASE] morphine [MORPHINE] Allergy Severe HALLUCINATI Verified 08/26/20 12:00 ONS From COMPAZINE Allergy Severe DYSTONIA Uncoded 08/26/20 12:00 From Percocet Allergy Severe TREMORS/ORAL Uncoded 08/26/20 12:00 TATION Active Medications: Current Medications Generic Name Dose Route Start Last Admin Trade Name Freq PRN Reason Stop Dose Admin Acetaminophen 650 mg 08/26/20 14:58 Acetaminophen 325 Mg Tablet PO Q6H PRN Pain, Mild (Pain Scale 1-3) Docusate Sodium 100 mg 08/26/20 21:00 08/27/20 08:18 Docusate Sodium 100 Mg Capsule PO 100 mg BID CARMELINA Administration Enoxaparin Sodium 30 mg 08/26/20 21:00 08/26/20 21:30 Enoxaparin Sodium 30 Mg/0.3 Ml Syringe SUBCUT 30 mg Q24H CARMELINA Administration Lactated Ringer's 1,000 mls @ 100 mls/hr 08/26/20 14:58 08/27/20 04:29 Lr IVCONT 100 mls/hr .Q10H CARMELINA Administration Insulin Human Lispro 0 unit 08/26/20 16:30 08/27/20 08:18 Insulin Lispro 100 Unit/Ml 3 Ml Vial SUBCUT 08/27/20 15:28 Not Given QIDACHS [facility] Protocol Ondansetron HCl 4 mg 08/26/20 14:58 Ondansetron Hcl 4 Mg/2 Ml Vial IVPUSH Q8H PRN Nausea Sodium Chloride 3 ml 08/26/20 16:00 08/27/20 08:18 0.9 % Sodium Chloride Flush 3 Ml Syringe IVFLUSH Not Given QSHIFT [facility] Home Medications Medication Instructions Recorded Confirmed Last Taken Type acetaminophen 650 mg PO BEDTIME 08/26/20 08/27/20 08/25/20 History amlodipine 1 tab PO BID 08/26/20 08/27/20 08/25/20 History ascorbic acid (vitamin C) [Vitamin 1,000 mg PO BID 08/26/20 08/27/20 08/25/20 History C] aspirin-dipyridamole [Aggrenox] 1 cap PO BID 08/26/20 08/27/20 08/25/20 History atorvastatin 10 mg PO BEDTIME 08/26/20 08/27/20 08/25/20 History calcium carbonate 1,300 mg PO BID 08/26/20 08/27/20 08/25/20 History carvedilol 18.75 mg PO BID 08/26/20 08/27/20 08/25/20 History cholecalciferol (vitamin D3) 50 mcg PO DAILY 08/26/20 08/27/20 08/25/20 History [Vitamin D3] coenzyme Q10 [CoQ-10] 300 mg PO DAILY 08/26/20 08/27/20 08/25/20 History docusate sodium [Colace] 100 mg PO DAILY 08/26/20 08/27/20 08/25/20 History duloxetine 1 cap PO QPM 08/26/20 08/27/20 08/25/20 History famotidine 20 mg PO QAM 08/26/20 08/27/20 08/25/20 History glipizide 1 tab PO DAILY 08/26/20 08/27/20 08/25/20 History hydralazine 50 mg PO BID 08/26/20 08/27/20 08/25/20 History lisinopril 5 mg PO BID 08/26/20 08/27/20 08/25/20 History magnesium oxide 2 tab PO BID 08/26/20 08/27/20 08/25/20 History mecobalamin (vitamin B12) [B12 500 mcg PO DAILY 08/26/20 08/27/20 08/25/20 History Active] melatonin 10 mg PO BEDTIME 08/26/20 08/27/20 08/25/20 History multivitamin 1 tab PO DAILY 08/26/20 08/27/20 08/25/20 History ondansetron 4 mg PO Q6H PRN 08/26/20 08/27/2008/25/21 History potassium 650 mg PO DAILY 08/26/20 08/27/20 08/25/20 History ranitidine HCl [Zantac] 300 mg PO BEDTIME 08/26/20 08/27/20 08/25/20 History Physical Exam Vital Signs and Narrative: Vital Signs: Last Vital Signs Temp 98.2 F 08/27/20 07:41 Pulse 71 08/27/20 07:41 Resp 16 08/27/20 07:41 BP 155/82 H 08/27/20 07:41 Pulse Ox 96 08/27/20 07:41 Body Mass Index 23.7 Phsyical exam: Heent: eyes anicteric , no discharge no throat pain or lesions Cvs: rrr, [id number] , no murmur res: clear to auscultation ,no rhonchii or wheezing abd: no rebound or guarding ,nt, bs present. ext pulses present , no cyanosis neuro: axo3 , nonfocal. Results Labs CBC and Chem 7: 08/27/20 05:11 08/27/20 05:11 Labs: Laboratory Results - last 24 hr 08/26/20 08/26/20 08/26/20 10:01 10:01 10:01 MCV 88.3 MCH 29.7 MCHC 33.6 RDW 14.2 Plt Count 230 MPV 10.5 Immature Gran % (Auto) 0.2 Neut % (Auto) 81.5 H Lymph % (Auto) 9.6 L [place] % (Auto) 8.2 Eos % (Auto) 0.3 Baso % (Auto) 0.2 Lymph # (Auto) 1.2 [place] # (Auto) 1.0 Eos # (Auto) 0.0 Baso # (Auto) 0.0 Abs Immat Gran (auto) 0.03 Absolute Neuts (auto) 10.1 H Absolute Nucleated RBC 0.000 Nucleated RBC % (auto) 0.0 PT 12.9 INR 1.1 APTT 29.7 Anion Gap 14 Estim Creat Clear Calc 24.8 Estimated GFR 25 POC Glucose Random Glucose 169 H Lactic Acid Calcium 9.7 Magnesium 1.7 Total Bilirubin 0.8 Direct Bilirubin 0.3 AST 18 ALT 14 Alkaline Phosphatase 82 Total Protein 6.8 Albumin 3.9 Lipase Urine Color Urine Appearance Urine pH Ur Specific [place] Urine Protein Urine Glucose (UA) Urine Ketones Urine Blood Urine Nitrite Ur Leukocyte Esterase Urine RBC Urine WBC Ur Squamous Epith Cells Urine Bacteria Stool Occult Blood COVID-19 ([facility]) COVID-19 [facility] ([facility]) Com 08/26/20 08/26/20 08/26/20 10:01 10:01 11:47 MCV MCH MCHC RDW Plt Count MPV Immature Gran % (Auto) Neut % (Auto) Lymph % (Auto) [place] % (Auto) Eos % (Auto) Baso % (Auto) Lymph # (Auto) [place] # (Auto) Eos # (Auto) Baso # (Auto) Abs Immat Gran (auto) Absolute Neuts (auto) Absolute Nucleated RBC Nucleated RBC % (auto) PT INR APTT Anion Gap Estim Creat Clear Calc Estimated GFR POC Glucose Random Glucose Lactic Acid 1.0 Calcium Magnesium Total Bilirubin Direct Bilirubin AST ALT Alkaline Phosphatase Total Protein Albumin Lipase 22 Urine Color Urine Appearance Urine pH Ur Specific [place] Urine Protein Urine Glucose (UA) Urine Ketones Urine Blood Urine Nitrite Ur Leukocyte Esterase Urine RBC Urine WBC Ur Squamous Epith Cells Urine Bacteria Stool Occult Blood NEGATIVE COVID-19 ([facility]) COVID-19 [facility] ([facility]) Com 08/26/20 08/26/20 08/26/20 14:02 15:23 20:40 MCV MCH MCHC RDW Plt Count MPV Immature Gran % (Auto) Neut % (Auto) Lymph % (Auto) [place] % (Auto) Eos % (Auto) Baso % (Auto) Lymph # (Auto) [place] # (Auto) Eos # (Auto) Baso # (Auto) Abs Immat Gran (auto) Absolute Neuts (auto) Absolute Nucleated RBC Nucleated RBC % (auto) PT INR APTT Anion Gap Estim Creat Clear Calc Estimated GFR POC Glucose 111 Random Glucose Lactic Acid Calcium Magnesium Total Bilirubin Direct Bilirubin AST ALT Alkaline Phosphatase Total Protein Albumin Lipase Urine Color YELLOW Urine Appearance CLOUDY Urine pH 5.5 Ur Specific [place] 1.025 Urine Protein 3+ H Urine Glucose (UA) NEG Urine Ketones NEG Urine Blood NEG Urine Nitrite NEG Ur Leukocyte Esterase 1+ H Urine RBC 0 Urine WBC 1-4 Ur Squamous Epith Cells NONE Urine Bacteria 2+ Stool Occult Blood COVID-19 ([facility]) Negative COVID-19 [facility] ([facility]) Com See Note 08/27/20 08/27/20 08/27/20 05:11 05:11 07:40 MCV 91.3 MCH 29.8 MCHC 32.6 RDW 14.3 Plt Count 180 MPV 10.9 Immature Gran % (Auto) 0.4 Neut % (Auto) 64.3 Lymph % (Auto) 22.5 [place] % (Auto) 10.4 Eos % (Auto) 2.0 Baso % (Auto) 0.4 Lymph # (Auto) 1.7 [place] # (Auto) 0.8 Eos # (Auto) 0.2 Baso # (Auto) 0.0 Abs Immat Gran (auto) 0.03 Absolute Neuts (auto) 4.8 Absolute Nucleated RBC 0.000 Nucleated RBC % (auto) 0.0 PT INR APTT Anion Gap 12 Estim Creat Clear Calc 29.2 Estimated GFR 30 POC Glucose 104 Random Glucose 104 D Lactic Acid Calcium 8.6 D Magnesium Total Bilirubin Direct Bilirubin AST ALT Alkaline Phosphatase Total Protein Albumin Lipase Urine Color Urine Appearance Urine pH Ur Specific [place] Urine Protein Urine Glucose (UA) Urine Ketones Urine Blood Urine Nitrite Ur Leukocyte Esterase Urine RBC Urine WBC Ur Squamous Epith Cells Urine Bacteria Stool Occult Blood COVID-19 ([facility]) COVID-19 Clin Com Imaging Radiologist's Impressions: Impressions Abdomen/Pelvis CT 08/26/20 09:08 IMPRESSION: Extensive postsurgical changes in the presacral region with a soft tissue mass likely a huge granulation tissue. There is a anastomotic suture line in the right lower quadrant likely an anastomosis between small bowel and the right colon. Proximal to this there are multiple dilated small bowel loops with air-fluid levels. This may be a site of partial obstruction or narrowing. There is some mural thickening in this region at the anastomotic site and may represent inflammation infection or recurrent underlying lesion. This area can be evaluated small bowel series if clinically deemed necessary. Left colonic diverticulosis without diverticulitis. Small atrophic kidney with diffuse cortical thinning and calcification in the upper and midpole with a small radiopaque calculi mid pole. There is no hydronephrosis seen. The left adrenal gland is not seen. There are multiple hepatic cysts. Assessment and Plan (1) Partial small bowel obstruction: Status: Acute (2) ESTUARDO (acute kidney injury): Status: Acute (3) Diabetes type 2, controlled: Status: Acute 1. possible partial sbo: history of multiple episodes of small-bowel obstruction and hx of exploratory laparotomy and bowel resection on several occasions. patient abdominal pain and nausea and vomiting seems to be improving with IV hydration and bowel rest started on low residue diet today patient improves then possible going home tomorrow. 2. ESTUARDO (acute kidney injury):probable has ckd stage 4 from labs review creatinine aound 1.6-1.9 range seems cr improvin 2.1 with IV fluid hydration. 3 .Diabetes type 2, controlled:fs 111-149 range dm diet continue insulin sliding scale. 4. Htn: suboptimal: will start his home coreg/ Hydralazine, hold off losartan due to slightly elevated renal function. 5. Leukocytosis: Resolved patient is symptomatic blood cultures pending 6. Hx of duodenal ulcer : continue famotidine . dvt prophylax:on lovenox as per primary team.
[2020-08-27 11:33] LABS: Glucose, Whole Blood 149 mg/dL (60-115)
--- NOTE | 2020-08-27 12:31 | MHC.CM.PN ---
PATIENT LIVES WITH HIS HCP/. (COPY ON FILE AND VERIFIED) HE HAS BEEN VACCINATED AGAINST COVID. LAST DOSE (MODERNA) WAS IN APRIL 2020. ALTHOUGH PATIENT USES [facility] FOR IMMEDIATE RX NEEDS, HE DOES USE THE [facility] FOR ROUTINE MEDICATIONS. [facility] PCP IS KATY WILSON AND FAMILY PCP IS BRAD TREVIÑO OF [facility] IN [place]. OSTOMY IN PLACE. PATIENT USES NO [facility] SERVICES CURRENTLY. HE DOES NOT WANT ANY REFERRALS [facility] FACILITIES. IMM 08/27 IN CHART
[2020-08-27] MEDS: carvediloL 6.25 MG TABLET 18.75 MG PO ×2 (13:15→20:48)
[2020-08-27] MEDS: Famotidine 20 MG TABLET 10 MG PO (13:15)
[2020-08-27 16:12] LABS: Glucose, Whole Blood 161 mg/dL (60-115)
[2020-08-27 20:43] LABS: Glucose, Whole Blood 180 mg/dL (60-115)
[2020-08-27] MEDS: Atorvastatin Calcium 10 MG TABLET PO (20:45)
[2020-08-27] MEDS: DULoxetine HCl 30 MG CAPSULE.DR PO (20:46)
[2020-08-27] MEDS: Melatonin 3 MG TABLET 9 MG PO (20:46)
[2020-08-27] MEDS: amLODIPine Besylate 5 MG TABLET PO (20:47)
[2020-08-27] MEDS: hydrALAZINE HCl 50 MG TABLET PO (20:47)
[2020-08-27] MEDS: Magnesium Oxide 400 MG TABLET 800 MG PO (20:47)
[2020-08-27] MEDS: Enoxaparin Sodium 30 MG/0.3 ML SYRINGE SUBCUT (20:49)
[2020-08-28 03:48] VITALS: BP 146/68; PULSE 62; RESP 18; TEMP 36.3; O2SAT 97
[2020-08-28] MEDS: Lactated Ringers 1,000 ML 100 ML IVCONT (05:28)
[2020-08-28 07:15] VITALS: BP 158/78; PULSE 62; RESP 20; TEMP 36.1; O2SAT 97
[2020-08-28 07:27] LABS: Glucose, Whole Blood 116 mg/dL (60-115)
--- NOTE | 2020-08-28 07:38 | P.PNIM_ITS ---
Subjective Subjective Date of Service: 08/29/20 Interval History: estuardo Physical Exam Vital Signs: Vital Signs: Last Vital Signs Temp 97 F 08/28/20 07:15 Pulse 62 08/28/20 07:15 Resp 20 08/28/20 07:15 BP 158/78 H 08/28/20 07:15 Pulse Ox 97 08/28/20 07:15 Body Mass Index 23.7 Objective Data Current Medications Generic Name Dose Route Start Last Admin Trade Name Freq PRN Reason Stop Dose Admin Acetaminophen 650 mg 08/26/20 14:58 Acetaminophen 325 Mg Tablet PO Q6H PRN Pain, Mild (Pain Scale 1-3) Amlodipine Besylate 5 mg 08/27/20 21:00 08/27/20 20:47 Amlodipine Besylate 5 Mg Tablet PO 5 mg BID CARMELINA Administration Protocol Atorvastatin Calcium 10 mg 08/27/20 21:00 08/27/20 20:45 Atorvastatin Calcium 10 Mg Tablet PO 10 mg BEDTIME CARMELINA Administration Carvedilol 18.75 mg 08/27/20 21:00 08/27/20 20:48 Carvedilol 6.25 Mg Tablet PO 18.75 mg BID CARMELINA Administration Protocol Cyanocobalamin 500 mcg 08/28/20 09:00 Cyanocobalamin (Vitamin B-12) 500 Mcg Tablet PO DAILY CARMELINA Dipyridamole/Aspirin 1 cap 08/27/20 21:00 08/27/20 20:46 Aspirin/Dipyridamole Er 25/200 Cpmp.12hr PO 1 cap BID CARMELINA Administration Docusate Sodium 100 mg 08/26/20 21:00 08/27/20 20:46 Docusate Sodium 100 Mg Capsule PO 100 mg BID CARMELINA Administration Duloxetine HCl 30 mg 08/27/20 21:00 08/27/20 20:46 Duloxetine Hcl 30 Mg Capsule.Dr PO 30 mg BEDTIME CARMELINA Administration Enoxaparin Sodium 30 mg 08/26/20 21:00 08/27/20 20:49 Enoxaparin Sodium 30 Mg/0.3 Ml Syringe SUBCUT 30 mg Q24H CARMELINA Administration Famotidine 10 mg 08/27/20 12:15 08/27/20 13:15 Famotidine 20 Mg Tablet PO 10 mg Q48H CARMELINA Administration Hydralazine HCl 50 mg 08/27/20 21:00 08/27/20 20:47 Hydralazine Hcl 50 Mg Tablet PO 50 mg BID [facility] Administration Protocol Lactated Ringer's 1,000 mls @ 100 mls/hr 08/26/20 14:58 08/28/20 05:28 Lr IVCONT 100 mls/hr .Q10H [facility] Administration Insulin Human Lispro 0 unit 08/27/20 21:00 08/28/20 07:34 Insulin Lispro 100 Unit/Ml 3 Ml Vial SUBCUT Not Given QIDACHS [facility] Protocol Magnesium Oxide 800 mg 08/27/20 21:00 08/27/20 20:47 Magnesium Oxide 400 Mg Tablet PO 800 mg BID [facility] Administration Melatonin 9 mg 08/27/20 21:00 08/27/20 20:46 Melatonin 3 Mg Tablet PO 9 mg BEDTIME [facility] Administration Multivitamins/Vitamin C 1 tab 08/28/20 09:00 Multivitamin Tablet PO DAILY [facility] Ondansetron HCl 4 mg 08/26/20 14:58 Ondansetron Hcl 4 Mg/2 Ml Vial IVPUSH Q8H PRN Nausea Sodium Chloride 3 ml 08/26/20 16:00 08/28/20 01:32 0.9 % Sodium Chloride Flush 3 Ml Syringe IVFLUSH Not Given QSHIFT [facility] Vitamin D 50 mcg 08/28/20 09:00 Cholecalciferol (Vitamin D3) 25 Mcg Tablet PO DAILY [facility] Labs CBC & Chem 7: 08/27/20 05:11 08/27/20 05:11 Labs: Laboratory Results - last 24 hr 08/27/20 08/27/20 08/27/20 07:40 11:20 16:06 POC Glucose 104 149 H 161 H 08/27/20 08/28/20 20:37 07:17 POC Glucose 180 H 116 H Microbiology Microbiology Results: Microbiology 08/26/20 11:54 Blood Culture - Preliminary Blood - Venous No growth after 24 hours. 08/26/20 11:47 Blood Culture - Preliminary Blood - Venous No growth after 24 hours. 08/26/20 00:00 Urine Culture - Preliminary Urine clean catch - Urine cowart top Culture in progress. Quality Stroke Does the patient have a stroke diagnosis?: Yes Reason for No Anti-thrombotic by Day Two: N/A - Med Ordered VTE Prior VTE?: No VTE Risk Level:: Surgical - high VTE Device Contraindication: N/A - Device Ordered VTE Drug Contraindication: N/A - Med Ordered Assessment and Plan (1) ESTUARDO (acute kidney injury): Status: Acute (2) Partial small bowel obstruction: Status: Acute Assessment and Plan: 1. possible partial sbo: history of multiple episodes of small-bowel obstruction and hx of exploratory laparotomy and bowel resection on several oc casions. patient abdominal pain and nausea and vomiting seems to be improved with IV hydration and bowel rest further management as per surgery. 2. ESTUARDO (acute kidney injury):probable has ckd stage 4 from labs review creatinine aound 1.6-1.9 range seems cr improvin 2.1 with IV fluid hydration. off fluids 3 .Diabetes type 2, controlled:controlled dm diet continue insulin sliding scale. 4. Htn: suboptimal: will start his home coreg/ Hydralazine, hold off losartan 2 more days,start after repeating bmp with pcp. patient is aware to fu with dr abraham in 1 week outpatiently 5. Leukocytosis: Resolved patient is symptomatic blood cultures neg @48hr 6. Hx of duodenal ulcer : continue famotidine d/w primary team in detail, will sign off now
--- NOTE | 2020-08-28 08:13 | PM.PNGS ---
Subjective Subjective Date of Service: 08/28/20 Interval history: Patient feels much improved, tolerating regular diet, passing bowels through ostomy. Denies abdominal pain, nausea, or vomiting. Physical Exam Vital Signs: Vital Signs: Last Vital Signs Temp 97 F 08/28/20 07:15 Pulse 62 08/28/20 07:15 Resp 20 08/28/20 07:15 BP 158/78 H 08/28/20 07:15 Pulse Ox 97 08/28/20 07:15 Body Mass Index 23.7 Const: General: no acute distress Nutritional Appearance: well nourished Orientation/consciousness: patient oriented x3 Limitations: no limitations Resp: Effort & Inspection: normal respiratory effort GI: Other: Soft, nondistended, nontender, patent and functioning ostomy left lower quadrant Skin: Other: Warm, dry, no rash Neuro: General: patient oriented x3 Extrem: General: Yes no clubbing, cyanosis or edema Progress Note: A&P Assessment and plan (1) Partial small bowel obstruction: Status: Acute Assessment and Plan: Patient feels much improved with no further abdominal pain, nausea, or vomiting. His ostomy is functioning properly. He is tolerating regular diet without an increase in abdominal pain or distention. He will be discharged to home today and should resume a regular diet. He should follow up with his primary care physician in 1 week and with me as needed. Fall Risk Details Current Medications: Current Medications Generic Name Dose Route Start Last Admin Trade Name Freq PRN Reason Stop Dose Admin Acetaminophen 650 mg 08/26/20 14:58 Acetaminophen 325 Mg Tablet PO Q6H PRN Pain, Mild (Pain Scale 1-3) Amlodipine Besylate 5 mg 08/27/20 21:00 08/27/20 20:47 Amlodipine Besylate 5 Mg Tablet PO 5 mg BID CARMELINA Administration Protocol Atorvastatin Calcium 10 mg 08/27/20 21:00 08/27/20 20:45 Atorvastatin Calcium 10 Mg Tablet PO 10 mg BEDTIME CARMELINA Administration Carvedilol 18.75 mg 08/27/20 21:00 08/27/20 20:48 Carvedilol 6.25 Mg Tablet PO 18.75 mg BID CARMELINA Administration Protocol Cyanocobalamin 500 mcg 08/28/20 09:00 Cyanocobalamin (Vitamin B-12) 500 Mcg Tablet PO DAILY CARMELINA Dipyridamole/Aspirin 1 cap 08/27/20 21:00 08/27/20 20:46 Aspirin/Dipyridamole Er 25/200 Cpmp.12hr PO 1 cap BID CARMELINA Administration Docusate Sodium 100 mg 08/26/20 21:00 08/27/20 20:46 Docusate Sodium 100 Mg Capsule PO 100 mg BID CARMELINA Administration Duloxetine HCl 30 mg 08/27/20 21:00 08/27/20 20:46 Duloxetine Hcl 30 Mg Capsule.Dr PO 30 mg BEDTIME CARMELINA Administration Enoxaparin Sodium 30 mg 08/26/20 21:00 08/27/20 20:49 Enoxaparin Sodium 30 Mg/0.3 Ml Syringe SUBCUT 30 mg Q24H CARMELINA Administration Famotidine 10 mg 08/27/20 12:15 08/27/20 13:15 Famotidine 20 Mg Tablet PO 10 mg Q48H CARMELINA Administration Hydralazine HCl 50 mg 08/27/20 21:00 08/27/20 20:47 Hydralazine Hcl 50 Mg Tablet PO 50 mg BID CARMELINA Administration Protocol Lactated Ringer's 1,000 mls @ 100 mls/hr 08/26/20 14:58 08/28/20 05:28 Lr IVCONT 100 mls/hr .Q10H CARMELINA Administration Insulin Human Lispro 0 unit 08/27/20 21:00 08/28/20 07:34 Insulin Lispro 100 Unit/Ml 3 Ml Vial SUBCUT Not Given QIDACHS [facility] Protocol Magnesium Oxide 800 mg 08/27/20 21:00 08/27/20 20:47 Magnesium Oxide 400 Mg Tablet PO 800 mg BID [facility] Administration Melatonin 9 mg 08/27/20 21:00 08/27/20 20:46 Melatonin 3 Mg Tablet PO 9 mg BEDTIME [facility] Administration Multivitamins/Vitamin C 1 tab 08/28/20 09:00 Multivitamin Tablet PO DAILY [facility] Ondansetron HCl 4 mg 08/26/20 14:58 Ondansetron Hcl 4 Mg/2 Ml Vial IVPUSH Q8H PRN Nausea Sodium Chloride 3 ml 08/26/20 16:00 08/28/20 01:32 0.9 % Sodium Chloride Flush 3 Ml Syringe IVFLUSH Not Given QSHIFT [facility] Vitamin D 50 mcg 08/28/20 09:00 Cholecalciferol (Vitamin D3) 25 Mcg Tablet PO DAILY CARMELINA Time Spent With Patient Time: Total time spent is greater than 50% in coordination of care (as documented) at patient's floor/unit and/or counseling patient: Time with patient: 15 - 24 minutes Procedures Date of Service Date of Service: 08/28/20 Quality Stroke Does the patient have a stroke diagnosis?: Yes Reason for No Anti-thrombotic by Day Two: N/A - Med Ordered VTE Prior VTE?: No VTE Risk Level:: Surgical - high VTE Device Contraindication: N/A - Device Ordered VTE Drug Contraindication: N/A - Med Ordered
--- NOTE | 2020-08-28 08:17 | PM.DS ---
DS: Providers Provider Date of Service: 08/28/20 Date of admission: 08/26/20 14:31 Date of discharge: 08/28/20 Primary care physician: Iveth Bryant MD Admitting clinician: Pato Brandt Consults: 08/26/20 14:58 Consult to Hospitalist Routine Consulting Provider: Hospitalist Reason For Exam: SBO, diabetic, previous CVA, med management Discharging clinician: Pato Brandt DS: Diagnosis Discharge Diagnosis (1) Partial small bowel obstruction: Status: Acute DS: Medications Discharge Medications Home Medications: Home Medications Medication Instructions Recorded Confirmed B12 Active 500 mcg PO DAILY 08/26/20 08/27/20 acetaminophen 650 mg PO BEDTIME 08/26/20 08/27/20 amlodipine 1 tab PO BID 08/26/20 08/27/20 ascorbic acid (vitamin C) [Vitamin 1,000 mg PO BID 08/26/20 08/27/20 C] aspirin-dipyridamole 1 cap PO BID 08/26/20 08/27/20 atorvastatin 10 mg PO BEDTIME 08/26/20 08/27/20 calcium carbonate 1,300 mg PO BID 08/26/20 08/27/20 carvedilol 18.75 mg PO BID 08/26/20 08/27/20 cholecalciferol (vitamin D3) 50 mcg PO DAILY 08/26/20 08/27/20 [Vitamin D3] coenzyme Q10 [CoQ-10] 300 mg PO DAILY 08/26/20 08/27/20 docusate sodium [Colace] 100 mg PO DAILY 08/26/20 08/27/20 duloxetine 1 cap PO QPM 08/26/20 08/27/20 famotidine 20 mg PO QAM 08/26/20 08/27/20 glipizide 1 tab PO DAILY 08/26/20 08/27/20 hydralazine 50 mg PO BID 08/26/20 08/27/20 lisinopril 5 mg PO BID 08/26/20 08/27/20 magnesium oxide 2 tab PO BID 08/26/20 08/27/20 melatonin 10 mg PO BEDTIME 08/26/20 08/27/20 multivitamin 1 tab PO DAILY 08/26/20 08/27/20 ondansetron 4 mg PO Q6H PRN 08/26/20 08/27/20 potassium 650 mg PO DAILY 08/26/20 08/27/20 ranitidine HCl 300 mg PO BEDTIME 08/26/20 08/27/20 DS: Summary Hospital Course Hospital Course: Ronny Vernon is a 79 year old male With a past history of diabetes mellitus, hyperlipidemia, hypertension, PTSD from his career in the [employer] during the [place] [employer], previous CVA, rectal cancer status post APR. He reports several episodes of small-bowel obstruction following this procedure which required enterolysis. He returns to the hospital with complaints of diffuse abdominal discomfort, nausea, vomiting and minimal to no output from his ostomy for the past 2 days. He also reports generalized fatigue but denies fever, chills, bloody stool, cough, shortness of breath or chest pain. He was evaluated in the emergency department and noted to have an elevated WBC, elevated BUN creatinine just above acute kidney injury due to dehydration from the nausea and vomiting. CT of the abdomen and pelvis revealed Extensive scar tissue in the pelvis with dilated loops of small bowel with air-fluid level suggestive of a small-bowel obstruction. He is admitted to the surgical service for management of this small-bowel obstruction. The patient was admitted to the surgical service, placed on bowel rest with IV fluid hydration to treat his acute kidney injury due to the obstruction, nausea, vomiting. He initially reported not having a bowel movement in 2 days per ostomy however later on on the 1st hospital day he was noted to have some very hard stool within is ostomy appliance. On hospital day 2 , he continued to pass stool per his ostomy and his abdomen which much softer with decreased abdominal pain. He reported feeling much improved following this. He was subsequently started on clear liquids and then advanced to a regular diet. He tolerated this very well without nausea, or vomiting. On hospital day 3 he again reported feeling much improved with no further abdominal pain, nausea, or vomiting. His abdomen was much softer and is appliance was filled with stool. There is no tenderness to palpation, or tympany to percussion. The small-bowel obstruction appeared to be resolved. The patient felt comfortable enough to be discharged to home. I recommended remaining on a low-fiber diet upon discharge. No general surgery follow-up is required however did recommend he follow-up with his primary care physician in approximately 1 week. He should return to the hospital for any return of his obstructive symptoms. He expressed understanding and agrees with the plan. Time Spent with Patient Time attestation: Total time spent providing and/or coordinating discharge services: Discharge coordination time: Less than 30 minutes Quality: Stroke Does the patient have a stroke diagnosis?: No Reason for No Anti-thrombotic at DC: N/A - Med Ordered Physical Exam Vital Signs: Vital Signs: Last Vital Signs Temp 97 F 08/28/20 07:15 Pulse 62 08/28/20 07:15 Resp 20 08/28/20 07:15 BP 158/78 H 08/28/20 07:15 Pulse Ox 97 08/28/20 07:15 Body Mass Index 23.7 Const: General: no acute distress Nutritional Appearance: well nourished Orientation/consciousness: patient oriented x3 Limitations: no limitations Resp: Effort & Inspection: normal respiratory effort GI: Other: Soft, nondistended, nontender, patent and functioning ostomy left lower quadrant Skin: Other: Warm, dry, no rash Neuro: General: patient oriented x3 Extrem: General: Yes no clubbing, cyanosis or edema DS: Data Data Completed and Pending Labs on day of discharge: Laboratory Results - last 24 hr 08/27/20 08/27/20 08/27/20 11:20 16:06 20:37 POC Glucose 149 H 161 H 180 H 08/28/20 07:17 POC Glucose 116 H Preliminary micro results at discharge 08/26/20 11:54 Blood Culture - Preliminary Blood - Venous No growth after 24 hours. 08/26/20 11:47 Blood Culture - Preliminary Blood - Venous No growth after 24 hours. 08/26/20 00:00 Urine Culture - Preliminary Urine clean catch - Urine cowart top Culture in progress. Discharge Plan Discharge Patient Disposition: Home, Self-Care Discharge Diagnosis: Partial small-bowel obstruction Referrals: Iveth Bryant MD [Primary Care Provider] - 1 Week Discharge Medications: Continued aspirin-dipyridamole 25-200 mg Capsule, Er Multiphase 12 Hr 1 cap PO BID RF: 0 carvedilol 6.25 mg tablet 18.75 mg PO BID RF: 0 atorvastatin 10 mg Tablet 10 mg PO BEDTIME RF: 0 amlodipine 5 mg tablet 1 tab PO BID RF: 0 docusate sodium [Colace] 100 mg capsule 100 mg PO DAILY RF: 0 coenzyme Q10 [CoQ-10] 100 mg Capsule 300 mg PO DAILY RF: 0 multivitamin Tablet 1 tab PO DAILY RF: 0 acetaminophen 325 mg Tablet 650 mg PO BEDTIME RF: 0 magnesium oxide 420 mg tablet 2 tab PO BID RF: 0 famotidine 20 mg Tablet 20 mg PO QAM RF: 0 ascorbic acid (vitamin C) [Vitamin C] 500 mg Tablet 1,000 mg PO BID RF: 0 calcium carbonate 650 mg calcium (1,625 mg) Tablet 1,300 mg PO BID RF: 0 hydralazine 50 mg Tablet 50 mg PO BID RF: 0 ranitidine HCl 150 mg Capsule 300 mg PO BEDTIME RF: 0 ondansetron 4 mg Tablet,Disintegrating 4 mg PO Q6H PRN (Reason: Nausea) RF: 0 glipizide 5 mg tablet 1 tab PO DAILY RF: 0 potassium 20 mg Tablet,Chewable 650 mg PO DAILY RF: 0 duloxetine 30 mg capsule,delayed release(DR/EC) 1 cap PO QPM RF: 0 cholecalciferol (vitamin D3) [Vitamin D3] 50 mcg (2,000 unit) Capsule 50 mcg PO DAILY RF: 0 melatonin 5 mg Capsule 10 mg PO BEDTIME RF: 0 B12 Active 1,000 mcg Tablet,Chewable 500 mcg PO DAILY RF: 0 Held lisinopril 5 mg tablet 5 mg PO BID RF: 0 Hold Instructions: Resume on 08/31/20. Start after checking chemistry , renal function and electrolytes with PCP in next 2-3 days patient is aware about it. Discharge Orders: Discharge Order (Routine); Ordered 08/28/20 Ordered By: Pato Brandt Diet: advance to usual diet Activity on Discharge: As tolerated Stand Alone Forms: Patient Portal Discharge page Care Plan Goals: Return to normal activity and diet Health Concerns: Abdominal pain, nausea, vomiting, constipation Plan of Treatment: Bowel rest, IV fluid hydration Assessment: Partial small-bowel obstruction due to adhesions, acute kidney injury Discharge Date/Time: 08/28/20 12:37
--- NOTE | 2020-08-28 08:23 | MHC.CM.PN ---
PT CLEARED TO [facility] TODAY WITH NO SERVICES.
[2020-08-28] MEDS: Magnesium Oxide 400 MG TABLET 800 MG PO (09:27)
[2020-08-28] MEDS: Docusate Sodium 100 MG CAPSULE PO (09:27)
[2020-08-28] MEDS: hydrALAZINE HCl 50 MG TABLET PO (09:27)
[2020-08-28] MEDS: Multivitamin TABLET 1 TAB PO (09:27)
[2020-08-28] MEDS: carvediloL 6.25 MG TABLET 18.75 MG PO (09:27)
[2020-08-28] MEDS: Cholecalciferol (Vitamin D3) 25 MCG TABLET 50 MCG PO (09:28)
[2020-08-28] MEDS: Cyanocobalamin (Vitamin B-12) 500 MCG TABLET PO (09:28)
[2020-08-28] MEDS: amLODIPine Besylate 5 MG TABLET PO (09:28)
[2020-08-28 11:11] VITALS: BP 148/74; PULSE 58; RESP 20; TEMP 35.5; O2SAT 97
[2020-08-28 11:38] LABS: Glucose, Whole Blood 176 mg/dL (60-115)
== END 2020-08-28 12:37 | disposition home or self-care (01) | DRG 389 ==
LOC: HO.ED 14:34 → HO.EDOVER 14:37 → HO.S3 17:05
PROVIDERS: Internal Medicine; Physician Assistant; Admitting Provider Surgery; Emergency Provider Emergency Medicine; PCP Internal Medicine; Visit Provider Surgery
DX: K56.600 Partial intestinal obstruction, unspecified as to cause (principal); N17.9 Acute kidney failure, unspecified; I69.351 Hemiplegia and hemiparesis following cerebral infarction affecting right dominant side; N18.4 Chronic kidney disease, stage 4 (severe); I12.9 Hypertensive chronic kidney disease with stage 1 through stage 4 chronic kidney disease, or unspecified chronic kidney disease; F43.10 Post-traumatic stress disorder, unspecified; E78.5 Hyperlipidemia, unspecified; N40.0 Benign prostatic hyperplasia without lower urinary tract symptoms; Z86.73 Personal history of transient ischemic attack (TIA), and cerebral infarction without residual deficits; E11.22 Type 2 diabetes mellitus with diabetic chronic kidney disease; D72.829 Elevated white blood cell count, unspecified; Z85.038 Personal history of other malignant neoplasm of large intestine; Z93.3 Colostomy status; Z86.718 Personal history of other venous thrombosis and embolism; Z85.528 Personal history of other malignant neoplasm of kidney; Z20.822 Contact with and (suspected) exposure to COVID-19; Z88.5 Allergy status to narcotic agent; Z79.82 Long term (current) use of aspirin; Z79.899 Other long term (current) drug therapy
CPT/HCPCS: 36415; 74176; 80048; 80076; 81001; 81003; 82272; 82947; 83605; 83690; 83735; 85025; 85610; 85730; 87040; 87086; 87635; 93005; 99285; J1650; J2405; J2543

== ENCOUNTER 2021-02-10 15:32 | Emergency (ER) | payer MEDICARE, OTHER, SELFPAY ==
--- NOTE | ~2021-02-10 | CT_ITS ---
EXAMINATION: CT HEAD WITHOUT CONTRAST (STROKE PROTOCOL) CLINICAL INFORMATION: Stroke protocol. Slurred speech COMPARISON: 04/13/2019 TECHNIQUE: Contiguous axial imaging was performed from the skull base to vertex without intravenous administration of contrast. This CT examination was performed using dose optimization techniques as appropriate, variously including the following: *Automated exposure control *Adjustment of mA and/or kV according to patient size (this includes techniques or standardized protocols for targeted exams where dose is matched to indication/reason for exam; i.e. extremities or head) *Use of iterative reconstruction technique DLP: 818 mGy-cm FINDINGS: There is no intracranial hemorrhage, hematoma, or extra-axial fluid collection. Mild enlargement of the ventricles, sulci, and extra-axial CSF spaces is indicative of parenchymal volume loss.There is no hydrocephalus, edema, or mass effect. Multiple areas of hypoattenuation in the subcortical and periventricular white matter are most consistent with chronic microangiopathic changes. Lacunar infarcts are evident in the left basal ganglia and right thalamus. There is no acute infarct or mass lesion. Calcific atherosclerosis is present within the cavernous segments of the internal carotid arteries. The calvarium appears intact. There is no pneumocephalus or orbital emphysema. The visualized sinuses and middle ears and mastoid air cells show no significant mucosal thickening. There are no air-fluid levels. CT/CT head for stroke IMPRESSION: No acute intracranial pathology. Mild cerebral volume loss and moderate chronic white matter microangiopathic changes. This critical result was discussed with Karime PRITCHETT at 4:30pm on 02/10/2021. It was ascertained that the content and urgency of the report was understood at the time of direct communication.
--- NOTE | ~2021-02-10 | XR_ITS ---
EXAMINATION: XR CHEST CLINICAL INFORMATION: Altered mental status COMPARISON: 04/13/2019 TECHNIQUE: Frontal view of the chest was obtained. FINDINGS: Lungs are clear. No focal consolidation or mass. Normal pulmonary vascularity. No pleural effusion or pneumothorax. Tortuous aorta. Heart size upper limits of normal. Similar appearance of degenerative changes of the spine and shoulders. XR/XR chest 1V IMPRESSION: No acute pulmonary disease.
[2021-02-10 15:43] VITALS: BP 188/78; PULSE 60; RESP 19; TEMP 36.6; O2SAT 98; BMI 23.7
--- NOTE | 2021-02-10 15:59 | ECG_ITS ---
Test Reason : STROKE? Blood Pressure : / mmHG Vent. Rate : 060 BPM Atrial Rate : 060 BPM P-R Int : 174 ms QRS Dur : 118 ms QT Int : 496 ms P-R-T Axes : 033 -68 -11 degrees QTc Int : 496 ms Poor data quality Sinus rhythm with Premature supraventricular complexes Left anterior fascicular block Right bundle branch block Anteroseptal infarct , age undetermined Abnormal ECG When compared with ECG of 26-AUG-2020 09:54, Premature atrial complexes are now Present Referred By: Karime Rogers Electronically Signed By:JULIO CÉSAR WILCOX MD
[2021-02-10 16:17] LABS: MANUAL DIFF FLAG NO
[2021-02-10 16:19] LABS: Basophils Absolute Auto 0.1 X10*3/uL (0.0-0.2); Basophils Percent Auto 0.9 % (0-2); Eosinophils Absolute Auto 0.3 X10*3/uL (0.0-0.4); Hematocrit 35.1 % (42.0-52.0); Hemoglobin 11.4 g/dl (14.0-18.0); Imm Gran Abs Auto 0.01 X10*3/uL (0.00-0.03); Imm Gran Pct Auto 0.1 % (0.0-0.4); Lymphocytes Absolute Auto 1.5 X10*3/uL (1.2-4.9); Lymphocytes Percent Auto 22.3 % (20-40); Mean Corpuscular HGB Conc 32.5 g/dl (31.0-36.0); Mean Corpuscular Hemoglobin 29.1 pg (27.0-33.0); Mean Corpuscular Volume 89.5 fL (80.0-98.0); Mean Platelet Volume 11.1 fL (9.4-12.4); Monocytes Absolute Auto 0.8 X10*3/uL (0.1-1.2); Neutrophils Absolute Auto 4.1 x10*3/uL (2.0-8.3); Neutrophils Percent Auto 60.7 % (45-73); Platelet Count 192 X10*3/uL (160-400); Red Blood Count 3.92 X10*6/uL (4.60-5.80); Red Cell Distribution Width 13.8 % (11.0-16.0); White Blood Count 6.8 X10*3/uL (4.8-10.8)
--- NOTE | 2021-02-10 16:20 | ED.NEUROSD ---
HPI - Neuro Symptoms/Deficit General Chief Complaint: Neuro Symptoms/Deficit Stated Complaint: AMS PER Time Seen by Provider: 02/10/21 15:56 Source: patient and EMS Mode of arrival: EMS Limitations: no limitations History of Present Illness HPI Narrative: 80-year-old male patient had an episode of confusion and garbled speech while watching on ball game. stated this was at 3:15 p.m.. He has a history of TIAs in the past, and was concerned that patient may be having a stroke. Onset (ago): hour(s) (Within the hour of arrival) Time: 16:00 Last Observed Normal: 15:15 Timing confirmed by: spouse Location: speech and dysarthria History of same: Yes Severity: mild Exacerbating factors: none Context: sudden onset On Anticoagulants: Yes Associated symptoms: confusion Treatments Prior to Arrival: none Related Data Home Medications Medication Instructions Recorded Confirmed acetaminophen 325 mg tablet 650 mg PO BEDTIME 08/26/20 08/27/20 amlodipine 5 mg tablet 1 tab PO BID 08/26/20 08/27/20 ascorbic acid (vitamin C) 500 mg 1,000 mg PO BID 08/26/20 08/27/20 tablet (Vitamin C) aspirin 25 mg-dipyridamole 200 mg 1 cap PO BID 08/26/20 08/27/20 capsule,ext.release 12 hr multiphase atorvastatin 10 mg tablet 10 mg PO BEDTIME 08/26/20 08/27/20 calcium carbonate 650 mg calcium 1,300 mg PO BID 08/26/20 08/27/20 (1,625 mg) tablet carvedilol 6.25 mg tablet 18.75 mg PO BID 08/26/20 08/27/20 cholecalciferol (vitamin D3) 50 50 mcg PO DAILY 08/26/20 08/27/20 mcg (2,000 unit) capsule (Vitamin D3) coenzyme Q10 100 mg capsule 300 mg PO DAILY 08/26/20 08/27/20 (CoQ-10) docusate sodium 100 mg capsule 100 mg PO DAILY 08/26/20 08/27/20 (Colace) duloxetine 30 mg capsule,delayed 1 cap PO QPM 08/26/20 08/27/20 release famotidine 20 mg tablet 20 mg PO QAM 08/26/20 08/27/20 glipizide 5 mg tablet 1 tab PO DAILY 08/26/20 08/27/20 hydralazine 50 mg tablet 50 mg PO BID 08/26/20 08/27/20 lisinopril 5 mg tablet 5 mg PO BID 08/26/20 08/27/20 magnesium oxide 420 mg tablet 2 tab PO BID 08/26/20 08/27/20 mecobalamin (vitamin B12) 1,000 500 mcg PO DAILY 08/26/20 08/27/20 mcg chewable tablet (B12 Active) melatonin 5 mg capsule 10 mg PO BEDTIME 08/26/20 08/27/20 multivitamin 1 tab PO DAILY 08/26/20 08/27/20 ondansetron 4 mg disintegrating 4 mg PO Q6H PRN 08/26/20 08/27/20 tablet potassium 20 mg chewable tablet 650 mg PO DAILY 08/26/20 08/27/20 ranitidine HCl 150 mg capsule 300 mg PO BEDTIME 08/26/20 08/27/20 Previous Rx's Medication Instructions Recorded cefuroxime axetil 500 mg tablet 500 mg PO Q12H 7 Days #14 tab 02/10/21 clopidogrel 75 mg tablet (Plavix) 75 mg PO DAILY #30 tab 02/10/21 Allergies Allergy/AdvReac Type Severity Reaction Status Date / Time erythromycin base Allergy Severe TREMORS Verified 08/26/20 12:00 [ERYTHROMYCIN BASE] morphine [MORPHINE] Allergy Severe HALLUCINATI Verified 08/26/20 12:00 ONS From COMPAZINE Allergy Severe DYSTONIA Uncoded 08/26/20 12:00 From Percocet Allergy Severe TREMORS/ORAL Uncoded 08/26/20 12:00 TATION Review of Systems Review of Systems: Constitutional: No Fever, No Chills ENT/Mouth: No sore throat, No Rhinorrhea Eyes: No Eye Pain, No Swelling, No Redness Cardiovascular: No Chest Pain, No SOB Respiratory: No Cough, No Sputum Gastrointestinal: No Nausea, No Vomiting, No Diarrhea, No abdominal Pain Genitourinary: No Dysuria, No Hematuria Musculoskeletal: No joint pain, No Myalgias, No Joint Swelling Skin: No Skin Lesions, No rash Neuro: Positive confusion, positive garbled speech, No Weakness, No Numbness, No Loss of Consciousness, No Dizziness, No Headache Psych: No Anxiety, No Depression, No SI/HI/AH/VH Heme/Lymph: No Bruising, No Bleeding,No Lymphadenopathy Endocrine: No Polyuria, No Polydipsia Yes all other systems are reviewed and are negative [facility] Past Medical History Attestation statement: The following information was validated with the patient. Source: old records reviewed Medical History Cancer of kidney Colon cancer Colostomy in place Diabetes type 2, controlled High cholesterol HTN (hypertension) PTSD (post-traumatic stress disorder) Stroke Social History Social History Household Members: Spouse Housing: House Do you presently have visiting nurse or other home services: No Alcohol intake: never Patient Tobacco Use Status: Never used Tobacco Advance Directives: Yes Advance Directives Information Provided: Yes Advance Directives on File: No service: Yes Current occupational status: retired Physical Exam Vital Signs: Vital Signs: Last Vital Signs Temp 98 F 02/10/21 15:43 Pulse 67 02/10/21 18:47 Resp 18 02/10/21 18:47 BP 159/67 H 02/10/21 18:47 Pulse Ox 97 02/10/21 18:47 BMI result Body Mass Index 23.7 Appearance: Alert. Oriented X3. No acute distress. Eyes: Pupils equal, round and reactive to light. ENT: Pharynx normal. Neck: Normal inspection. Neck supple. CVS: Normal heart rate and rhythm. Pulses normal. Respiratory: No respiratory distress. Breath sounds normal. Abdomen: Soft and nontender. Colostomy in place to midline left lower quadrant. Skin: Skin warm and dry. Normal skin color. Normal skin turgor. Extremities: No lower extremity edema. Moves all extremities against resistance. Neuro: No motor deficit. No sensory deficit. Cranial nerves 2-12 intact. Course Course Course Narrative: 80-year-old male presents with an episode of garbled speech and confusion that has now resolved. His stated that she asked him a question while he was watching a ball game, and the answers that he gave did not make sense and sounded garbled. Patient was then confused, stated that he needed to shut the game off because he could not tolerate the sound. Is unusual behavior for him as he is an avid sports fan. This episode started at 3:15 p.m. today and resolved prior to his arrival to the emergency department. 4:07 p.m. NIH stroke scale is 0. This CRISIS SPECIALIST obtained labs. Alert oriented x4, answering questions appropriately, appears to be nervous. States that he had an episode of garbled speech and confusion but feels better at this time. Reports to have history of TIAs with similar presentation. Patient also describes significant anxiety and PTSD. 4:[address] by this CRISIS SPECIALIST. 4:[address] complete 4:30 p.m. radiology, no acute findings at this time. 4:40 p.m. tiger text discussion with Dr. Hernández, plan is to add Plavix, rule out AFib, patient has had CTA and carotid Doppler within the past 2 years, does not need to be repeated at this time. Plan is for evaluation as outpatient. Carotid Dopple on 01/01/2019, MRI March 07, 2019, and CTA on March 11, 2019 reviewed. 5:36 p.m. EKG is still pending at this time. 5:50 p.m. lab values are within normal limits, BUN 25, creatinine 2.35 which both are consistent with patient's prior values dating back to 2019 and known kidney disease. Trace leukocyte esterase in his urine with elevated urinalysis white count. Suspicion of UTI could also explain episode of confusion and inability to answer question correctly while at home. Will treat for UTI. Patient does understand the must follow up with Neurology as an outpatient. Consultations Consultation #1: Edgar Time: 16:40 MDM - Neuro Symptoms/Deficit Differential Diagnosis Differential diagnosis: Likely delirium, subarachnoid hemorrhage, cerebrovascular accident and transient cerebral ischemia Medical Records Attestation: I reviewed the patient's medical records. Lab Data Attestation: I reviewed the patient's lab results. Result diagrams: 02/10/21 16:13 02/10/21 16:13 Labs: Lab Results 02/10/21 02/10/21 02/10/21 Range/Units 16:13 16:13 16:13 WBC 6.8 (4.8-10.8) X10*3/uL RBC 3.92 L (4.60-5.80) X10*6/uL Hgb 11.4 L (14.0-18.0) g/dl Hct 35.1 L (42.0-52.0) % MCV 89.5 (80.0-98.0) fL MCH 29.1 (27.0-33.0) pg MCHC 32.5 (31.0-36.0) g/dl RDW 13.8 (11.0-16.0) % Plt Count 192 (160-400) X10*3/uL MPV 11.1 (9.4-12.4) fL Immature Gran % (Auto) 0.1 (0.0-0.4) % Neut % (Auto) 60.7 (45-73) % Lymph % (Auto) 22.3 (20-40) % [place] % (Auto) 12.0 H (2-11) % Eos % (Auto) 4.0 (0-4) % Baso % (Auto) 0.9 (0-2) % Lymph # (Auto) 1.5 (1.2-4.9) X10*3/uL [place] # (Auto) 0.8 (0.1-1.2) X10*3/uL Eos # (Auto) 0.3 (0.0-0.4) X10*3/uL Baso # (Auto) 0.1 (0.0-0.2) X10*3/uL Abs Immat Gran (auto) 0.01 (0.00-0.03) X10*3/uL Absolute Neuts (auto) 4.1 (2.0-8.3) x10*3/uL Absolute Nucleated RBC 0.000 (0.0-0.012) X10*3/uL Nucleated RBC % (auto) 0.0 (0.0-0.2) /100WBC PT 11.7 (9.9-13.0) SEC INR 1.0 (0.9-1.1) Sodium 145 (135-145) mmol/L Potassium 4.1 (3.3-5.1) mmol/L Chloride 115 H (96-108) mmol/L Carbon Dioxide 23 (22-29) mmol/L Anion Gap 11 L (12-20) BUN 25 H (9-16) mg/dL Creatinine 2.35 H (0.5-1.4) mg/dL Estim Creat Clear Calc 25.8 Estimated GFR 27 Random Glucose 158 H D (60-115) mg/dL Calcium 8.9 (8.4-10.2) mg/dL Troponin I High Sens (<3.5-35.0) ng/L Hold Red Top Urine Color Urine Appearance Urine pH (5.0-8.0) Ur Specific [place] (1.005-1.025) Urine Protein (NEG-TRACE) MG/DL Urine Glucose (UA) (NEG) MG/DL Urine Ketones (NEG) MG/DL Urine Blood (NEG) Urine Nitrite (NEG) Ur Leukocyte Esterase (NEG) Urine RBC (0) /HPF Urine WBC (0-4) /HPF Ur Squamous Epith Cells /LPF Urine Bacteria /LPF 02/10/21 02/10/21 02/10/21 Range/Units 16:13 16:28 17:25 WBC (4.8-10.8) X10*3/uL RBC (4.60-5.80) X10*6/uL Hgb (14.0-18.0) g/dl Hct (42.0-52.0) % MCV (80.0-98.0) fL MCH (27.0-33.0) pg MCHC (31.0-36.0) g/dl RDW (11.0-16.0) % Plt Count (160-400) X10*3/uL MPV (9.4-12.4) fL Immature Gran % (Auto) (0.0-0.4) % Neut % (Auto) (45-73) % Lymph % (Auto) (20-40) % [place] % (Auto) (2-11) % Eos % (Auto) (0-4) % Baso % (Auto) (0-2) % Lymph # (Auto) (1.2-4.9) X10*3/uL [place] # (Auto) (0.1-1.2) X10*3/uL Eos # (Auto) (0.0-0.4) X10*3/uL Baso # (Auto) (0.0-0.2) X10*3/uL Abs Immat Gran (auto) (0.00-0.03) X10*3/uL Absolute Neuts (auto) (2.0-8.3) x10*3/uL Absolute Nucleated RBC (0.0-0.012) X10*3/uL Nucleated RBC % (auto) (0.0-0.2) /100WBC PT (9.9-13.0) SEC INR (0.9-1.1) Sodium (135-145) mmol/L Potassium (3.3-5.1) mmol/L Chloride (96-108) mmol/L Carbon Dioxide (22-29) mmol/L Anion Gap (12-20) BUN (9-16) mg/dL Creatinine (0.5-1.4) mg/dL Estim Creat Clear Calc Estimated GFR Random Glucose (60-115) mg/dL Calcium (8.4-10.2) mg/dL Troponin I High Sens 14.6 (<3.5-35.0) ng/L Hold Red Top See Note Urine Color YELLOW Urine Appearance CLEAR Urine pH 6.0 (5.0-8.0) Ur Specific [place] 1.025 (1.005-1.025) Urine Protein 2+ H (NEG-TRACE) MG/DL Urine Glucose (UA) NEG (NEG) MG/DL Urine Ketones NEG (NEG) MG/DL Urine Blood NEG (NEG) Urine Nitrite NEG (NEG) Ur Leukocyte Esterase TRACE H (NEG) Urine RBC 0 (0) /HPF Urine WBC 10-14 H (0-4) /HPF Ur Squamous Epith Cells TRACE /LPF Urine Bacteria 4+ /LPF Imaging Data CT scan - head: Attestation: I personally reviewed and interpreted this imaging study as follows: Radiologist's impression: FINDINGS: There is no intracranial hemorrhage, hematoma, or extra-axial fluid collection.? Mild enlargement of the ventricles, sulci, and extra-axial CSF spaces is indicative of parenchymal volume loss.There is no hydrocephalus, edema, or mass effect.? Multiple areas of hypoattenuation in the subcortical and periventricular white matter are most consistent with chronic microangiopathic changes. Lacunar infarcts are evident in the left basal ganglia and right thalamus. There is no acute infarct or mass lesion. Calcific atherosclerosis is present within the cavernous segments of the internal carotid arteries. The calvarium appears intact. There is no pneumocephalus or orbital emphysema.? The visualized sinuses and middle ears and mastoid air cells show no significant mucosal thickening. There are no air-fluid levels. CT/CT head for stroke IMPRESSION: No acute intracranial pathology. ? Mild cerebral volume loss and moderate chronic white matter microangiopathic changes. ? This critical result was discussed with Karime PRITCHETT at 4:30pm on 02/10/2021. It was ascertained that the content and urgency of the report was understood at the time of direct communication. ECG Data Attestation: I personally reviewed and interpreted this ECG as follows: ECG interpretation date: 02/10/21 Prior ECG tracings: available for review Interpretation: Vent. Rate : 060 BPM ? ? Atrial Rate : 060 BPM ?? P-R Int : 174 ms? QRS Dur : 118 ms ? ? QT Int : 496 ms ? ? ? P-R-T Axes : 033 -68 -11 degrees ?? QTc Int : 496 ms ? Sinus rhythm with Premature supraventricular complexes Left axis deviation Incomplete right bundle branch block Anteroseptal infarct , age undetermined Abnormal ECG When compared with ECG of 26-AUG-2020 09:54, Significant changes have occurred Scores Heart Score History: -1- moderately suspicious ECG: -1- non specific repolarization disturbance Age: -2- > or = 65 Risk factory: -1- 1 or 2 risk factors Troponin: -0- < or = normal limit Score: 5 Risk: 16.6% NIH Stroke Scale Internal: Initial- Upon Arrival Time: 16:01 Level of Consciousness: Alert Level of Consciousness Questions: Answers both questions correctly Level of Consciousness Commands: Performs both tasks correctly Best Gaze: Normal Visual: No visual loss Facial Palsy: Normal Motor Arm (Right): No drift Motor Arm (Left): No drift Motor Leg (Right): No drift Motor Leg (Left): No drift Limb Ataxia: Absent Sensory: Normal Best Language: No aphasia Dysarthia: Normal Extinction and Inattention: No abnormality Score: 0 Critical Care Time Critical Care Time Critical Care Time: Yes Total Critical Care Time: 65 Attestation: I have personally provided critical care time exclusive of time spent on separately billable procedures. Time includes review of laboratory data, radiology results, discussion with consultants, and monitoring for potential decompensation. Interventions were performed as documented. Discharge Plan Discharge Clinical Impression: Acute UTI, Brain TIA Patient Disposition: Home, Self-Care Instructions: Transient Ischemic Attack (ED), Urinary Tract Infection in Men (ED) Additional Instructions: You were evaluated for episode of garbled speech. CT scan of the head is negative for acute findings. I discussed your case in detail with neurologist Dr. Hernández. Please start Plavix 75 mg daily. I gave you your 1st dose in the emergency department. Please call and make an appointment. His office is expecting your phone call. Urinalysis indicates UTI. Please take cefuroxime 500 mg twice a day for the next 7 days. Drink plenty of fluids. Please do not take famotidine while taking this medication. Thank you for choosing this emergency department for evaluation. Please follow-up with primary care physician as needed. Return to the emergency department for any new, concerning, or worsening symptoms. Prescriptions: New cefuroxime axetil 500 mg tablet 500 mg PO Q12H 7 Days Qty: 14 RF: 0 clopidogrel [Plavix] 75 mg tablet 75 mg PO DAILY Qty: 30 RF: 3 No Action aspirin-dipyridamole 25-200 mg Capsule, Er Multiphase 12 Hr 1 cap PO BID RF: 0 carvedilol 6.25 mg tablet 18.75 mg PO BID RF: 0 atorvastatin 10 mg Tablet 10 mg PO BEDTIME RF: 0 amlodipine 5 mg tablet 1 tab PO BID RF: 0 docusate sodium [Colace] 100 mg capsule 100 mg PO DAILY RF: 0 coenzyme Q10 [CoQ-10] 100 mg Capsule 300 mg PO DAILY RF: 0 multivitamin Tablet 1 tab PO DAILY RF: 0 acetaminophen 325 mg Tablet 650 mg PO BEDTIME RF: 0 magnesium oxide 420 mg tablet 2 tab PO BID RF: 0 famotidine 20 mg Tablet 20 mg PO QAM RF: 0 ascorbic acid (vitamin C) [Vitamin C] 500 mg Tablet 1,000 mg PO BID RF: 0 calcium carbonate 650 mg calcium (1,625 mg) Tablet 1,300 mg PO BID RF: 0 hydralazine 50 mg Tablet 50 mg PO BID RF: 0 ranitidine HCl 150 mg Capsule 300 mg PO BEDTIME RF: 0 lisinopril 5 mg tablet 5 mg PO BID RF: 0 Hold Instructions: Resume on 08/31/20. Start after checking chemistry , renal function and electrolytes with PCP in next 2-3 days patient is aware about it. ondansetron 4 mg Tablet,Disintegrating 4 mg PO Q6H PRN (Reason: Nausea) RF: 0 glipizide 5 mg tablet 1 tab PO DAILY RF: 0 potassium 20 mg Tablet,Chewable 650 mg PO DAILY RF: 0 duloxetine 30 mg capsule,delayed release(DR/EC) 1 cap PO QPM RF: 0 cholecalciferol (vitamin D3) [Vitamin D3] 50 mcg (2,000 unit) Capsule 50 mcg PO DAILY RF: 0 melatonin 5 mg Capsule 10 mg PO BEDTIME RF: 0 B12 Active 1,000 mcg Tablet,Chewable 500 mcg PO DAILY RF: 0 Referrals: Sebas Hernández MD [Physician] - 2 days (Suspicion of TIA) Interventions: ED Discharge Assessment Last Done: 02/10/21 18:48 Discharge Date/Time: 02/10/21 18:50
[2021-02-10 16:23] LABS: Prothrombin Time 11.7 SEC (9.9-13.0)
[2021-02-10 16:39] LABS: Anion Gap 11 (12-20); Blood Urea Nitrogen 25 mg/dL (9-16); Calcium 8.9 mg/dL (8.4-10.2); Carbon Dioxide 23 mmol/L (22-29); Chloride 115 mmol/L (96-108); Creatinine Clr Calc Pharmacy 25.8; Estimated Glomerular Filt Rate 27; Glucose Random 158 mg/dL (60-115); Potassium 4.1 mmol/L (3.3-5.1); Sodium 145 mmol/L (135-145)
[2021-02-10 16:41] LABS: Troponin-I High Sensitivity 14.6 ng/L (<3.5-35.0)
[2021-02-10 16:49] LABS: Stroke Lab Use COMPLETE
[2021-02-10 17:31] LABS: Appearance Urine CLEAR; Color Urine YELLOW; Glucose Urine UA NEG (NEG); Leukocyte Esterase Urine TRACE (NEG); Nitrite Urine NEG (NEG); Specific Gravity - Urine 1.025 (1.005-1.025); UACC Culture Trigger YES; Urine Blood NEG (NEG); Urine Ketones NEG (NEG); Urine Protein 2+ MG/DL (NEG-TRACE)
[2021-02-10 17:50] LABS: Bacteria Urine 4+ /LPF; Squamous Epithelial Cell Urine TRACE /LPF
[2021-02-10 17:51] LABS: RBC Urine 0 /HPF (0)
[2021-02-10] MEDS: Clopidogrel Bisulfate 75 MG TABLET PO (17:54)
[2021-02-10 18:47] VITALS: BP 159/67; PULSE 67; RESP 18; O2SAT 97
== END 2021-02-10 18:50 | disposition home or self-care (01) ==
PROVIDERS: Nurse Practitioner Family; Emergency Provider Internal Medicine; PCP Internal Medicine
DX: G45.9 Transient cerebral ischemic attack, unspecified (principal); N39.0 Urinary tract infection, site not specified; R47.1 Dysarthria and anarthria; R94.31 Abnormal electrocardiogram [ECG] [EKG]; R29.700 NIHSS score 0; I10 Essential (primary) hypertension; Z79.899 Other long term (current) drug therapy
CPT/HCPCS: 36415; 70450; 71045; 80048; 81001; 84484; 85025; 85610; 87086; 93005; 99283; 99291

== ENCOUNTER 2021-10-04 19:46 | Emergency (ER) | payer OTHER, SELFPAY ==
--- NOTE | ~2021-10-04 | XR_ITS ---
EXAMINATION: XR CHEST CLINICAL INFORMATION: Abdominal pain COMPARISON: February 10, 2021 TECHNIQUE: AP portable upright view of the chest was obtained. FINDINGS: No significant abnormality is noted involving the heart, lungs, mediastinum, bony thorax or soft tissues. No free air is seen under diaphragms. XR/XR chest 1V IMPRESSION: No acute disease
--- NOTE | ~2021-10-04 | CT_ITS ---
EXAMINATION: CT ABDOMEN AND PELVIS WITHOUT CONTRAST CLINICAL INFORMATION: Colon cancer. Abdominal pain. Status post colectomy. COMPARISON: CT abdomen and pelvis 08/26/2020 TECHNIQUE: Multidetector volumetric imaging was performed from the superior aspect of the liver through the pubic symphysis. Sagittal and coronal reformatted images were obtained on the technologist's workstation. This CT examination was performed using dose optimization techniques as appropriate, variously including the following: *Automated exposure control *Adjustment of mA and/or kV according to patient size (this includes techniques or standardized protocols for targeted exams where dose is matched to indication/reason for exam; i.e. extremities or head) *Use of iterative reconstruction technique DLP: 454 mGy-cm FINDINGS: LUNG BASES: There is platelike atelectasis or scarring in the right lung base. The heart size is normal.. There are coronary artery calcifications present. Small hiatal hernia is present. LIVER, GALLBLADDER, AND BILIARY TREE: The liver is normal in size, shape, and attenuation. No focal hepatic lesion or biliary ductal dilatation is present. There is distended without any radiopaque calculi or wall thickening. PANCREAS: Unremarkable. SPLEEN: Unremarkable. ADRENAL GLANDS: The right adrenal gland appears unremarkable. The left adrenal gland is not visualized. There is multiple cysts surgical kimmy seen in the suprarenal region KIDNEYS AND URETERS: The kidneys are normal in size, shape, and attenuation. There is a 6 mm nonobstructive radiopaque calculi upper pole left kidney with mild cortical thinning and calcification. There is significantly dilated left kidney pelvis and the ureter extending in the distal segment. There are postsurgical changes and scarring in the pelvis where the ureter is loss likely secondary to adhesions. The right kidney appears unremarkable. The right ureter is slightly prominent but nondilated BLADDER: The bladder is unremarkable. GASTROINTESTINAL TRACT: The rectum and sigmoid colon appears to be surgically removed. There is a soft tissue mass in the sigmoid region with extensive kimmy and thick scarring likely from previous intervention. Also visualized is a left lower quadrant colostomy with diffuse colonic diverticulosis without diverticulitis. There are prominent small bowel loops in the pelvis with fecal residue. Appendix is not seen. There are postsurgical sutures in the right lower quadrant to with patent lumen. ABDOMINAL WALL: There is a left lower quadrant colostomy, patent. LYMPH NODES: No abnormal size pelvic lymph nodes seen. VASCULAR: There is atherosclerotic calcification of abdominal aorta and common iliac arteries without aneurysmal dilatation. PELVIC VISCERA: There is a large thick scar in the pelvis with circumferential kimmy extending to the anal region. No abnormal lymph nodes seen. OSSEOUS STRUCTURES: There are degenerative disc changes L4-L5 disc level with vacuum disc phenomena. No aggressive lytic or sclerotic process seen. CT/CT abdomen pelvis wo con IMPRESSION: There is a total sigmoid and rectal resection with a large thick scar surrounding kimmy and adjacent prominent small bowel loops filled with fecal residue. No mural thickening seen however. There is a left lower quadrant colostomy with moderate constipation. There is severe hydroureteronephrosis with the distal ureter obstructed from thick scar and adhesions. Mild prominence of the right ureter is noted as well. The bladder is distended without bladder wall thickening. There are postsurgical changes in right lower quadrant with widely patent lumen likely involving a segment of small bowel/proximal ascending colon. No abnormal lymphadenopathy seen. Nonobstructive radiopaque calculi upper pole left kidney with scattered cortical calcifications and scarring. The right kidney is relatively unremarkable. Mild bilateral perinephric stranding. No change in multiple small hepatic cyst from previous study. The gallbladder is distended. Small hiatal hernia seen. .Fleischner guidelines were followed.
[2021-10-04 20:00] VITALS: BP 190/94; PULSE 80; TEMP 37; O2SAT 97
--- NOTE | 2021-10-04 20:05 | ECG_ITS ---
Test Reason : ABDOMINAL PAIN Blood Pressure : / mmHG Vent. Rate : 077 BPM Atrial Rate : 077 BPM P-R Int : 158 ms QRS Dur : 146 ms QT Int : 452 ms P-R-T Axes : 045 -68 031 degrees QTc Int : 511 ms Normal sinus rhythm Left axis deviation Non-specific intra-ventricular conduction block Minimal voltage criteria for LVH, may be normal variant ( [place] product ) Abnormal ECG When compared with ECG of 10-FEB-2021 17:41, Premature supraventricular complexes are no longer Present QRS duration has increased Criteria for Anteroseptal infarct are no longer Present Nonspecific T wave abnormality, improved in Inferior leads Referred By: Beatriz Parker Electronically Signed By:COLLINS PEDROZA
--- NOTE | 2021-10-04 20:07 | ED.ABDPAIN ---
HPI - Abdominal Pain General Chief Complaint: Abdominal Pain Stated Complaint: Abd pain Time Seen by Provider: 10/04/21 20:05 Source: patient and EMS Mode of arrival: EMS Limitations: no limitations History of Present Illness HPI narrative: 80 yo male BIBA for abd pain evaluation. started since yesterday, described as constant abd. pain, diffuse, no radiation, no reliving or aggravating factors, no fever, or chills. patient had history of colon CA with colectomy in 1994 has left side colostomy, the colostomy bag has been empty since yesterday, and complaining of cramps, had previous bowel obstruction in the past. complaining for nausea but no vomiting. Related Data Home Medications Medication Instructions Recorded Confirmed acetaminophen 325 mg tablet 650 mg PO BEDTIME 08/26/20 10/04/21 amlodipine 5 mg tablet 1 tab PO BID 08/26/20 10/04/21 ascorbic acid (vitamin C) 500 mg 1,000 mg PO BID 08/26/20 10/04/21 tablet (Vitamin C) aspirin 25 mg-dipyridamole 200 mg 1 cap PO BID 08/26/20 10/04/21 capsule,ext.release 12 hr multiphase atorvastatin 10 mg tablet 10 mg PO BEDTIME 08/26/20 10/04/21 calcium carbonate 650 mg calcium 1,300 mg PO BID 08/26/20 10/04/21 (1,625 mg) tablet carvedilol 6.25 mg tablet 18.75 mg PO BID 08/26/20 10/04/21 cholecalciferol (vitamin D3) 50 50 mcg PO DAILY 08/26/20 10/04/21 mcg (2,000 unit) capsule (Vitamin D3) coenzyme Q10 100 mg capsule 300 mg PO DAILY 08/26/20 10/04/21 (CoQ-10) docusate sodium 100 mg capsule 100 mg PO DAILY 08/26/20 10/04/21 (Colace) duloxetine 30 mg capsule,delayed 1 cap PO QPM 08/26/20 10/04/21 release famotidine 20 mg tablet 20 mg PO QAM 08/26/20 10/04/21 hydralazine 50 mg tablet 50 mg PO BID 08/26/20 10/04/21 magnesium oxide 420 mg tablet 2 tab PO BID 08/26/20 10/04/21 mecobalamin (vitamin B12) 1,000 500 mcg PO DAILY 08/26/20 10/04/21 mcg chewable tablet (B12 Active) melatonin 5 mg capsule 10 mg PO BEDTIME 08/26/20 10/04/21 multivitamin 1 tab PO DAILY 08/26/20 10/04/21 ondansetron 4 mg disintegrating 4 mg PO Q6H PRN Nausea 08/26/20 10/04/21 tablet potassium chloride 20 mEq 1 tab PO DAILY 10/04/21 10/04/21 tablet,extended release(part/cryst) sodium bicarbonate 650 mg tablet 1 tab PO BID 10/04/21 10/04/21 zinc sulfate 50 mg zinc (220 mg) 1 cap PO DAILY 10/04/21 10/04/21 capsule Allergies Allergy/AdvReac Type Severity Reaction Status Date / Time erythromycin base Allergy Severe TREMORS Verified 08/26/20 12:00 [ERYTHROMYCIN BASE] morphine [MORPHINE] Allergy Severe HALLUCINATI Verified 08/26/20 12:00 ONS From COMPAZINE Allergy Severe DYSTONIA Uncoded 08/26/20 12:00 From Percocet Allergy Severe TREMORS/ORAL Uncoded 08/26/20 12:00 TATION Review of Systems Review of Systems All other systems are reviewed and are negative Constitutional: Reports as per HPI and Reports no additional constitutional complaints Eyes: Reports as per HPI and Reports no additional eye complaints Reports system reviewed and no additional complaints, except as documented Cardiovascular: Reports as per HPI and Reports no additional cardiovascular complaints Respiratory: Reports as per HPI and Reports no additional respiratory complaints Gastrointestinal: Reports as per HPI and Reports no additional gastrointestinal complaints Genitourinary: Reports no additional female genitourinary complaints Musculoskeletal: Reports no additional musculoskeletal complaints Skin/Breast: Reports system reviewed and no additional complaints, except as docu Psychiatric: Reports no additional psychiatric complaints Endocrine: Reports no additional endocrine complaints Hematologic/Lymphatic: Reports no additional hematologic/lymphatic complaints Allergic/Immunologic: Reports no additional allergic/immunologic complaints Reports system reviewed and no additional complaints, except as documented and Reports Abnormal speech present [facility] Past Medical History Medical History Cancer of kidney Colon cancer Colostomy in place Diabetes type 2, controlled High cholesterol HTN (hypertension) PTSD (post-traumatic stress disorder) Stroke Social History Social History Household Members: Spouse Housing: House Do you presently have visiting nurse or other home services: No Alcohol intake: never Patient Tobacco Use Status: Never used Tobacco Advance Directives: No Advance Directives Information Provided: No service: Yes Current occupational status: retired Physical Exam ED Vital Signs: Vital Signs - 24 hr 10/04/21 20:00 Temperature 98.6 F Pulse Rate 80 Blood Pressure 190/94 H Pulse Oximetry 97 Oxygen Delivery Method Room Air BMI result Body Mass Index 23.0 vital signs have been reviewed as appeared to be correct. Blood pressure normal. Heart rate normal. Respiration rate normal. Temperature normal. Oxygen saturation normal. Appearance: Alert. Oriented X3. No acute distress. Head: Normal external exam. Normocephalic. Atraumatic. No Bejarano signs noted. No raccoon eyes noted Eyes: PERRLA. EOMI. Conjunctiva and sclera normal. Eyelids normal. ENT: TM's Normal. Pharynx normal. Uvula midline. Moist mucous membranes. No trismus noted. No drooling noted. No muffled voice noted. Neck: Normal inspection. Neck supple. FROM. No adenopathy. Thyroid Normal. No meningeal signs. No neck mass noted. CVS: Normal heart rate and rhythm. Heart sound normal. No murmurs noted. Pulses normal throughout. Respiratory: No respiratory distress. Painless inspiration. Breath sounds normal. No wheezes/rales/rhonchi noted. Chest nontender. No accessory muscle usage noted or decreased air movement noted. Abdomen: Soft and nontender. Bowel sounds normal in all 4 quadrants. No distention noted. No organomegaly noted. No visible injury noted. Back: No CVA tenderness. Full range of motion noted. Skin: Skin warm and dry. Normal skin color. Normal skin turgor. No rashes/lesions/lacerations noted. Extremities: No lower extremity edema. Extremities exhibit normal range of motion. Extremities nontender. Neuro: Oriented X 3. Cranial nerve exam: II-XII are grossly intact No motor deficit. No sensory deficit. Reflexes normal. Course Course Course Narrative: 80 year male came in for evaluation of nondraining colostomy, patient was concern of bowel obstruction, abdominal exam is unremarkable, CT of the abdomen pelvis remarkable for stool load in the bowel but no evidence of bowel obstruction, also chronic renal changes due to scar tissue from old surgeries, unremarkable labs. able to tolerate p.o. intake with no vomiting and improved of the mild nausea that Resolved now. No urological symptoms, no abdominal pain at the discharge time. MDM - Abdominal Pain Medical Records Attestation: I reviewed the patient's medical records. Lab Data Attestation: I reviewed the patient's lab results. Result diagrams: 10/04/21 20:14 10/04/21 20:14 Labs: Lab Results 10/04/21 10/04/21 10/04/21 Range/Units 20:14 20:14 20:14 WBC 10.0 (4.8-10.8) X10*3/uL RBC 4.25 L (4.60-5.80) X10*6/uL Hgb 12.0 L (14.0-18.0) g/dl Hct 36.0 L (42.0-52.0) % MCV 84.7 (80.0-98.0) fL MCH 28.2 (27.0-33.0) pg MCHC 33.3 (31.0-36.0) g/dl RDW 13.9 (11.0-16.0) % Plt Count 228 (160-400) X10*3/uL MPV 10.5 (9.4-12.4) fL Immature Gran % (Auto) 0.3 (0.0-0.4) % Neut % (Auto) 70.0 (45-73) % Lymph % (Auto) 18.2 L (20-40) % [place] % (Auto) 9.6 (2-11) % Eos % (Auto) 1.5 (0-4) % Baso % (Auto) 0.4 (0-2) % Lymph # (Auto) 1.8 (1.2-4.9) X10*3/uL [place] # (Auto) 1.0 (0.1-1.2) X10*3/uL Eos # (Auto) 0.2 (0.0-0.4) X10*3/uL Baso # (Auto) 0.0 (0.0-0.2) X10*3/uL Abs Immat Gran (auto) 0.03 (0.00-0.03) X10*3/uL Absolute Neuts (auto) 7.0 (2.0-8.3) x10*3/uL Absolute Nucleated RBC 0.000 (0.0-0.012) X10*3/uL Nucleated RBC % (auto) 0.0 (0.0-0.2) /100WBC Sodium 143 (135-145) mmol/L Potassium 4.1 (3.3-5.1) mmol/L Chloride 109 H (96-108) mmol/L Carbon Dioxide 21 L (22-29) mmol/L Anion Gap 17 (12-20) BUN 27 H (9-16) mg/dL Creatinine 2.68 H (0.5-1.4) mg/dL Estim Creat Clear Calc 23.1 Estimated GFR 23 Random Glucose 157 H (60-115) mg/dL Calcium 9.2 (8.4-10.2) mg/dL Total Bilirubin 0.8 (0.0-1.0) mg/dL Direct Bilirubin 0.3 (0.0-0.5) mg/dL AST 16 (5-37) U/L ALT 13 (0-40) U/L Alkaline Phosphatase 102 D (39-117) U/L Troponin I High Sens 19.0 (<3.5-35.0) ng/L B-Natriuretic Peptide 185 H (<100) pg/mL Total Protein 6.7 (6.5-8.0) g/dL Albumin 3.7 (3.5-5.0) g/dL Lipase 19 (8-78) U/L Urine Color Urine Appearance Urine pH (5.0-8.0) Ur Specific [place] (1.005-1.025) Urine Protein (Neg-Trace) mg/dL Urine Glucose (UA) (Negative) mg/dL Urine Ketones (Negative) mg/dL Urine Blood (Negative) Urine Nitrite (Negative) Ur Leukocyte Esterase (Negative) Urine RBC (0-2) /HPF Urine WBC (0-5) /HPF Ur Squamous Epith Cells (0-2) /HPF Urine Bacteria (None Seen) Hyaline Casts (0-2) /LPF COVID-19 (AMEYA) (Negative) COVID-19 Clin Com 10/04/21 10/04/21 Range/Units 20:14 21:41 WBC (4.8-10.8) X10*3/uL RBC (4.60-5.80) X10*6/uL Hgb (14.0-18.0) g/dl Hct (42.0-52.0) % MCV (80.0-98.0) fL MCH (27.0-33.0) pg MCHC (31.0-36.0) g/dl RDW (11.0-16.0) % Plt Count (160-400) X10*3/uL MPV (9.4-12.4) fL Immature Gran % (Auto) (0.0-0.4) % Neut % (Auto) (45-73) % Lymph % (Auto) (20-40) % [place] % (Auto) (2-11) % Eos % (Auto) (0-4) % Baso % (Auto) (0-2) % Lymph # (Auto) (1.2-4.9) X10*3/uL [place] # (Auto) (0.1-1.2) X10*3/uL Eos # (Auto) (0.0-0.4) X10*3/uL Baso # (Auto) (0.0-0.2) X10*3/uL Abs Immat Gran (auto) (0.00-0.03) X10*3/uL Absolute Neuts (auto) (2.0-8.3) x10*3/uL Absolute Nucleated RBC (0.0-0.012) X10*3/uL Nucleated RBC % (auto) (0.0-0.2) /100WBC Sodium (135-145) mmol/L Potassium (3.3-5.1) mmol/L Chloride (96-108) mmol/L Carbon Dioxide (22-29) mmol/L Anion Gap (12-20) BUN (9-16) mg/dL Creatinine (0.5-1.4) mg/dL Estim Creat Clear Calc Estimated GFR Random Glucose (60-115) mg/dL Calcium (8.4-10.2) mg/dL Total Bilirubin (0.0-1.0) mg/dL Direct Bilirubin (0.0-0.5) mg/dL AST (5-37) U/L ALT (0-40) U/L Alkaline Phosphatase (39-117) U/L Troponin I High Sens (<3.5-35.0) ng/L B-Natriuretic Peptide (<100) pg/mL Total Protein (6.5-8.0) g/dL Albumin (3.5-5.0) g/dL Lipase (8-78) U/L Urine Color Yellow Urine Appearance Clear Urine pH 5.5 (5.0-8.0) Ur Specific [place] 1.015 (1.005-1.025) Urine Protein 300 (3+) H (Neg-Trace) mg/dL Urine Glucose (UA) Negative (Negative) mg/dL Urine Ketones Negative (Negative) mg/dL Urine Blood Small (1+) H (Negative) Urine Nitrite Negative (Negative) Ur Leukocyte Esterase Trace H (Negative) Urine RBC 0-2 (0-2) /HPF Urine WBC 6-10 (0-5) /HPF Ur Squamous Epith Cells 0-2 (0-2) /HPF Urine Bacteria 1+ (None Seen) Hyaline Casts 0-2 (0-2) /LPF COVID-19 (AMEYA) Negative (Negative) COVID-19 Clin Com See Note Imaging Data Chest x-ray: Attestation: I personally reviewed and interpreted this imaging study as follows: Radiologist's impression: no acute pathology abdomen and pelvis CT: Attestation: I personally reviewed and interpreted this imaging study as follows: Radiologist's impression: There is a total sigmoid and rectal resection with a large thick scar surrounding kimmy and adjacent prominent small bowel loops filled with fecal residue. No mural thickening seen however. ? There is a left lower quadrant colostomy with moderate constipation. ? There is severe hydroureteronephrosis with the distal ureter obstructed from thick scar and adhesions. Mild prominence of the right ureter is noted as well. The bladder is distended without bladder wall thickening. ? There are postsurgical changes in right lower quadrant with widely patent lumen likely involving a segment of small bowel/proximal ascending colon. ? No abnormal lymphadenopathy seen. ? Nonobstructive radiopaque calculi upper pole left kidney with scattered cortical calcifications and scarring. The right kidney is relatively unremarkable. Mild bilateral perinephric stranding. ? No change in multiple small hepatic cyst from previous study. The gallbladder is distended. Small hiatal hernia seen. ? Discharge Plan Discharge Clinical Impression: Colostomy in place, Constipation Patient Disposition: Home, Self-Care Instructions: Constipation (ED) Prescriptions: No Action aspirin-dipyridamole 25-200 mg Capsule, Er Multiphase 12 Hr 1 cap PO BID carvedilol 6.25 mg tablet 18.75 mg PO BID atorvastatin 10 mg Tablet 10 mg PO BEDTIME amlodipine 5 mg tablet 1 tab PO BID docusate sodium [Colace] 100 mg capsule 100 mg PO DAILY coenzyme Q10 [CoQ-10] 100 mg Capsule 300 mg PO DAILY multivitamin Tablet 1 tab PO DAILY acetaminophen 325 mg Tablet 650 mg PO BEDTIME magnesium oxide 420 mg tablet 2 tab PO BID famotidine 20 mg Tablet 20 mg PO QAM ascorbic acid (vitamin C) [Vitamin C] 500 mg Tablet 1,000 mg PO BID calcium carbonate 650 mg calcium (1,625 mg) Tablet 1,300 mg PO BID hydralazine 50 mg Tablet 50 mg PO BID ondansetron 4 mg Tablet,Disintegrating 4 mg PO Q6H PRN (Reason: Nausea) duloxetine 30 mg capsule,delayed release(DR/EC) 1 cap PO QPM cholecalciferol (vitamin D3) [Vitamin D3] 50 mcg (2,000 unit) Capsule 50 mcg PO DAILY melatonin 5 mg Capsule 10 mg PO BEDTIME B12 Active 1,000 mcg Tablet,Chewable 500 mcg PO DAILY sodium bicarbonate 650 mg tablet 1 tab PO BID zinc sulfate 50 mg zinc (220 mg) capsule 1 cap PO DAILY potassium chloride 20 mEq tablet,ER particles/crystals 1 tab PO DAILY Referrals: Iveth Bryant MD [Primary Care Provider] -
[2021-10-04 20:18] VITALS: BP 170/94; PULSE 86; O2SAT 98; BMI 23.0
[2021-10-04 20:21] LABS: MANUAL DIFF FLAG NO
[2021-10-04 20:24] LABS: Basophils Percent Auto 0.4 % (0-2); Eosinophils Absolute Auto 0.2 X10*3/uL (0.0-0.4); Eosinophils Percent Auto 1.5 % (0-4); Imm Gran Abs Auto 0.03 X10*3/uL (0.00-0.03); Imm Gran Pct Auto 0.3 % (0.0-0.4); Lymphocytes Absolute Auto 1.8 X10*3/uL (1.2-4.9); Lymphocytes Percent Auto 18.2 % (20-40); Mean Corpuscular HGB Conc 33.3 g/dl (31.0-36.0); Mean Corpuscular Hemoglobin 28.2 pg (27.0-33.0); Mean Corpuscular Volume 84.7 fL (80.0-98.0); Mean Platelet Volume 10.5 fL (9.4-12.4); Monocytes Percent Auto 9.6 % (2-11); Platelet Count 228 X10*3/uL (160-400); Red Blood Count 4.25 X10*6/uL (4.60-5.80); Red Cell Distribution Width 13.9 % (11.0-16.0)
[2021-10-04 20:39] LABS: Alanine Aminotransferase 13 U/L (0-40); Albumin Level 3.7 g/dL (3.5-5.0); Alkaline Phosphatase 102 U/L (39-117); Anion Gap 17 (12-20); Aspartate Amino Transferase 16 U/L (5-37); Bilirubin Direct 0.3 mg/dL (0.0-0.5); Bilirubin Total 0.8 mg/dL (0.0-1.0); Blood Urea Nitrogen 27 mg/dL (9-16); Calcium 9.2 mg/dL (8.4-10.2); Carbon Dioxide 21 mmol/L (22-29); Chloride 109 mmol/L (96-108); Creatinine Clr Calc Pharmacy 23.1; Estimated Glomerular Filt Rate 23; Glucose Random 157 mg/dL (60-115); Lipase 19 U/L (8-78); Potassium 4.1 mmol/L (3.3-5.1); Sodium 143 mmol/L (135-145); Total Protein 6.7 g/dL (6.5-8.0)
[2021-10-04 20:43] LABS: B Type Natriuretic Peptide 185 pg/mL (<100)
[2021-10-04] MEDS: 0.9 % Sodium Chloride 1,000 ML 999 ML IV (20:54)
--- NOTE | 2021-10-04 21:15 | PHA.MEDREC ---
Pharmacy Consult ? Medication Reconciliation Pharmacy has completed the medication reconciliation. Spouse had a list with her by bedside. Patient expressed concern with his zinc (causes abdominal pain) and his potassium (too big to swallow).
[2021-10-04 21:50] LABS: Appearance Urine Clear; Color Urine Yellow; Glucose Urine UA Negative (Negative); Leukocyte Esterase Urine Trace (Negative); Nitrite Urine Negative (Negative); PH 5.5 (5.0-8.0); Specific Gravity - Urine 1.015 (1.005-1.025); Urine Blood Small (1+) (Negative); Urine Ketones Negative (Negative); Urine Protein 300 (3+) mg/dL (Neg-Trace)
[2021-10-04 22:08] LABS: COVID-19 Test Negative (Negative)
[2021-10-04 22:09] LABS: UACC Culture Trigger YES
[2021-10-04 22:10] LABS: Bacteria Urine 1+ (None Seen); Hyaline Casts Urine 0-2 /LPF (0-2); RBC Urine 0-2 /HPF (0-2); Squamous Epithelial Cell Urine 0-2 /HPF (0-2)
[2021-10-04 22:43] VITALS: BP 173/91; PULSE 78; RESP 18; O2SAT 95
== END 2021-10-04 22:59 | disposition home or self-care (01) ==
PROVIDERS: Emergency Provider Emergency Medicine; PCP Internal Medicine
DX: K59.00 Constipation, unspecified (principal); Z20.822 Contact with and (suspected) exposure to COVID-19; E11.9 Type 2 diabetes mellitus without complications; E78.5 Hyperlipidemia, unspecified; I10 Essential (primary) hypertension; Z93.3 Colostomy status; Z79.02 Long term (current) use of antithrombotics/antiplatelets; Z79.899 Other long term (current) drug therapy; Z79.82 Long term (current) use of aspirin
CPT/HCPCS: 36415; 71045; 74176; 80048; 80076; 81001; 83690; 83880; 84484; 85025; 87086; 87635; 93005; 96360; 99284

== ENCOUNTER 2021-10-15 07:13 | Inpatient (IN) | payer OTHER, SELFPAY ==
[2021-10-15] VITALS (9 sets, daily range): BP systolic 146–200; BP diastolic 68–96; PULSE 65–78; RESP 14–20; TEMP 36.6–37.1; O2SAT 94–97; BMI 24.5
--- NOTE | ~2021-10-15 | US_ITS ---
EXAMINATION: US RETROPERITONEAL LIMITED (RENAL ONLY) CLINICAL INFORMATION: Left kidney and ureter. COMPARISON: None CT scans of the abdomen and pelvis dated 08/26/2020 and 10/04/2021. TECHNIQUE: Multiple 2-D grayscale and color Doppler ultrasound images of the kidneys were obtained. FINDINGS: RIGHT KIDNEY: 11.7 x 4.5 x 5.2 cm (SAG x AP x TRV). Tiny upper pole anechoic cyst. Mild right renal pelvic fullness. Color Doppler showed no abnormal vascular flow. LEFT KIDNEY: 10.2 x 4.9 x 6.1 cm (SAG x AP x TRV). Moderate left hydroureteronephrosis. Cortically based calcification/calculi. Color Doppler showed no abnormal vascular flow. US/US renal BI IMPRESSION: 1. Moderate left hydronephrosis appears similar if not mildly decreased compared to the most recent CT scan. Please refer to the report from the CT study for more detailed findings.
--- NOTE | 2021-10-15 07:22 | ED_ITS ---
HPI - Back Pain/Injury General Chief Complaint: Abdominal Pain Stated Complaint: lower back pain/?azizaey Stone Time Seen by Provider: 10/15/21 07:22 Source: patient Mode of arrival: EMS Limitations: no limitations History of Present Illness HPI Narrative: leflt flank pain. patient with 6mm nonobstructive stone but has hydronephrosis and hydroureter secondary to scarring. MD elicited complaint: back injury Pertinent past history: kidney stones Onset (ago): day(s) Timing: intermittent Severity: mild Similar Symptoms Previously: Yes Quality: stabbing Location: left flank Exacerbating factors: none Relieving factors: none Related Data Home Medications Medication Instructions Recorded Confirmed acetaminophen 325 mg tablet 650 mg PO BEDTIME 08/26/20 10/04/21 amlodipine 5 mg tablet 1 tab PO BID 08/26/20 10/04/21 ascorbic acid (vitamin C) 500 mg 1,000 mg PO BID 08/26/20 10/04/21 tablet (Vitamin C) aspirin 25 mg-dipyridamole 200 mg 1 cap PO BID 08/26/20 10/04/21 capsule,ext.release 12 hr multiphase atorvastatin 10 mg tablet 10 mg PO BEDTIME 08/26/20 10/04/21 calcium carbonate 650 mg calcium 1,300 mg PO BID 08/26/20 10/04/21 (1,625 mg) tablet cholecalciferol (vitamin D3) 50 50 mcg PO DAILY 08/26/20 10/04/21 mcg (2,000 unit) capsule (Vitamin D3) coenzyme Q10 100 mg capsule 300 mg PO DAILY 08/26/20 10/04/21 (CoQ-10) docusate sodium 100 mg capsule 100 mg PO DAILY 08/26/20 10/04/21 (Colace) duloxetine 30 mg capsule,delayed 1 cap PO QPM 08/26/20 10/04/21 release famotidine 20 mg tablet 20 mg PO BID 08/26/20 10/04/21 hydralazine 50 mg tablet 50 mg PO BID 08/26/20 10/04/21 magnesium oxide 420 mg tablet 1 tab PO BID 08/26/20 10/04/21 mecobalamin (vitamin B12) 1,000 500 mcg PO DAILY 08/26/20 10/04/21 mcg chewable tablet (B12 Active) melatonin 5 mg capsule 10 mg PO BEDTIME 08/26/20 10/04/21 multivitamin 1 tab PO DAILY 08/26/20 10/04/21 ondansetron 4 mg disintegrating 4 mg PO Q6H PRN Nausea 08/26/20 10/04/21 tablet potassium chloride 20 mEq 1 tab PO DAILY 10/04/21 10/04/21 tablet,extended release(part/cryst) sodium bicarbonate 650 mg tablet 1 tab PO BID 10/04/21 10/04/21 zinc sulfate 50 mg zinc (220 mg) 1 cap PO DAILY 10/04/21 10/04/21 capsule carvedilol 25 mg tablet 1 tab PO BID 10/15/21 Allergies Allergy/AdvReac Type Severity Reaction Status Date / Time erythromycin base Allergy Severe TREMORS Verified 08/26/20 12:00 [ERYTHROMYCIN BASE] morphine [MORPHINE] Allergy Severe HALLUCINATI Verified 08/26/20 12:00 ONS From COMPAZINE Allergy Severe DYSTONIA Uncoded 08/26/20 12:00 From Percocet Allergy Severe TREMORS/ORAL Uncoded 08/26/20 12:00 TATION Review of Systems Constitutional: Constitutional: Reports no additional constitutional complaints Eyes: Eyes: Reports no additional eye complaints ENT: Denies dizziness Cardiovascular: Cardiovascular: Reports no additional cardiovascular complaints Respiratory: Respiratory: Reports as per HPI Gastrointestinal: Gastrointestinal: Reports no additional gastrointestinal complaints Musculoskeletal: Musculoskeletal: Reports no additional musculoskeletal complaints Integumentary/Breasts: Skin/Breast: Denies rash Neurologic: Reports system reviewed and no additional complaints, except as documented, Denies dizziness and Denies Sensory deficit (Neuro) Psychiatric: Psychiatric: Denies anxiety PMFSH Past Medical History Medical History Cancer of kidney Colon cancer Colostomy in place Diabetes type 2, controlled High cholesterol HTN (hypertension) PTSD (post-traumatic stress disorder) Stroke Social History Social History Household Members: Spouse Housing: House Do you presently have visiting nurse or other home services: No Alcohol intake: never Patient Tobacco Use Status: Never used Tobacco Advance Directives: Yes Advance Directives Information Provided: No Advance Directives on File: No service: Yes Current occupational status: retired Physical Exam Vital Signs: Vital Signs: Last Vital Signs Temp 98.8 F 10/15/21 07:23 Pulse 65 09/05/22 07:23 Resp 20 10/15/21 07:23 BP 167/88 H 10/15/21 08:27 Pulse Ox 97 10/15/21 07:23 O2 Del Method 10/15/21 07:23 BMI result Body Mass Index 24.5 Const: Other: elderly male Nutritional Appearance: average body habitus Orientation/consciousness: oriented to person and patient oriented x3 Limitations: no limitations HEENT: Head: Yes normal to inspection Ears: external ears normal General nose exam: Normal external nose present Mouth: Normal oral and palatal mucosa present and oropharynx normal Throat: Yes posterior oropharynx normal Eyes: General: appearance normal, both eyes and all related structures Neck: Other: supple Neck: Yes normal visual inspection Chest: Chest palpation & inspection: normal inspection of the chest Resp: Auscultation: clear to auscultation bilaterally Cardio: Jugular venous distension: no JVD Rate: regular rate Rhythm: regular rhythm Heart sounds: S1 normal heart sound present and S2 normal heart sound present GI: Inspection: Yes normal to inspection Palpation (GI): Soft to palpation, nontender and No hepatosplenomegaly present Auscultation: normal bowel sounds : General: Yes no CVA tenderness Back/Spine/Pelvis: Back: no CVA tenderness Skin: General skin exam: no rashes or lesions noted Neuro: General: oriented to person and patient oriented x3 Cranial nerves: Yes CN's II-XII intact bilaterally Motor exam (neuro): 5/5 motor strength pre sent throughout Sensory Exam: No Sensory deficit (Neuro) Extrem: General: Yes normal to inspection Psych: Appearance: grossly normal Course Reevaluation(s) Reevaluation #1: With WBC 12.8, UA greater than 50wbc, and hydro ureter and nephrosis from scarring, will treat for pyelo and admit, discussed with Dr. Chaudhary Time: 10:05 MDM - Back Pain/Injury Lab Data Result diagrams: 10/15/21 08:02 10/15/21 08:55 Labs: Lab Results 10/15/21 10/15/21 10/15/21 Range/Units 08:02 08:55 08:55 WBC 12.8 H (4.8-10.8) X10*3/uL RBC 4.17 L (4.60-5.80) X10*6/uL Hgb 11.5 L (14.0-18.0) g/dl Hct 36.2 L (42.0-52.0) % MCV 86.8 (80.0-98.0) fL MCH 27.6 (27.0-33.0) pg MCHC 31.8 (31.0-36.0) g/dl RDW 13.5 (11.0-16.0) % Plt Count 268 (160-400) X10*3/uL MPV 10.6 (9.4-12.4) fL Immature Gran % (Auto) 0.2 (0.0-0.4) % Neut % (Auto) 74.1 H (45-73) % Lymph % (Auto) 14.7 L (20-40) % [place] % (Auto) 8.3 (2-11) % Eos % (Auto) 2.0 (0-4) % Baso % (Auto) 0.7 (0-2) % Lymph # (Auto) 1.9 (1.2-4.9) X10*3/uL [place] # (Auto) 1.1 (0.1-1.2) X10*3/uL Eos # (Auto) 0.3 (0.0-0.4) X10*3/uL Baso # (Auto) 0.1 (0.0-0.2) X10*3/uL Abs Immat Gran (auto) 0.03 (0.00-0.03) X10*3/uL Absolute Neuts (auto) 9.5 H (2.0-8.3) x10*3/uL Absolute Nucleated RBC 0.000 (0.0-0.012) X10*3/uL Nucleated RBC % (auto) 0.0 (0.0-0.2) /100WBC Sodium 143 (135-145) mmol/L Potassium 4.0 (3.3-5.1) mmol/L Chloride 110 H (96-108) mmol/L Carbon Dioxide 20 L (22-29) mmol/L Anion Gap 17 (12-20) BUN 28 H (9-16) mg/dL Creatinine 2.98 H (0.5-1.4) mg/dL Estim Creat Clear Calc 20.3 Estimated GFR 20 Random Glucose 174 H (60-115) mg/dL Calcium 8.6 D (8.4-10.2) mg/dL Urine Color Yellow Urine Appearance Cloudy Urine pH 5.5 (5.0-9.0) Ur Specific [place] 1.015 (1.005-1.025) Urine Protein 300 (3+) H (Neg-Trace) mg/dL Urine Glucose (UA) Negative (Negative) mg/dL Urine Ketones Negative (Negative) mg/dL Urine Blood Trace H (Negative) Urine Nitrite Negative (Negative) Ur Leukocyte Esterase Large (3+) H (Negative) Urine RBC 0-2 (0-2) /HPF Urine WBC >50 H (0-5) /HPF Ur Squamous Epith Cells 0-2 (0-2) /HPF Urine Bacteria 4+ (None Seen) Hyaline Casts 3-5 (0-2) /LPF Discharge Plan Discharge Clinical Impression: Hydronephrosis, Hydroureter, Acute pyelonephritis Patient Disposition: Admitted As Inpatient Prescriptions: No Action aspirin-dipyridamole 25-200 mg Capsule, Er Multiphase 12 Hr 1 cap PO BID atorvastatin 10 mg Tablet 10 mg PO BEDTIME amlodipine 5 mg tablet 1 tab PO BID docusate sodium [Colace] 100 mg capsule 100 mg PO DAILY coenzyme Q10 [CoQ-10] 100 mg Capsule 300 mg PO DAILY multivitamin Tablet 1 tab PO DAILY acetaminophen 325 mg Tablet 650 mg PO BEDTIME magnesium oxide 420 mg tablet 1 tab PO BID famotidine 20 mg Tablet 20 mg PO BID ascorbic acid (vitamin C) [Vitamin C] 500 mg Tablet 1,000 mg PO BID calcium carbonate 650 mg calcium (1,625 mg) Tablet 1,300 mg PO BID hydralazine 50 mg Tablet 50 mg PO BID ondansetron 4 mg Tablet,Disintegrating 4 mg PO Q6H PRN (Reason: Nausea) duloxetine 30 mg capsule,delayed release(DR/EC) 1 cap PO QPM cholecalciferol (vitamin D3) [Vitamin D3] 50 mcg (2,000 unit) Capsule 50 mcg PO DAILY melatonin 5 mg Capsule 10 mg PO BEDTIME B12 Active 1,000 mcg Tablet,Chewable 500 mcg PO DAILY sodium bicarbonate 650 mg tablet 1 tab PO BID zinc sulfate 50 mg zinc (220 mg) capsule 1 cap PO DAILY potassium chloride 20 mEq tablet,ER particles/crystals 1 tab PO DAILY carvedilol 25 mg tablet 1 tab PO BID
--- NOTE | 2021-10-15 08:05 | PC.NURSE ---
Dr. Vera aware of patients BP
[2021-10-15 08:07] LABS: MANUAL DIFF FLAG NO
[2021-10-15 08:10] LABS: Basophils Absolute Auto 0.1 X10*3/uL (0.0-0.2); Basophils Percent Auto 0.7 % (0-2); Eosinophils Absolute Auto 0.3 X10*3/uL (0.0-0.4); Hematocrit 36.2 % (42.0-52.0); Hemoglobin 11.5 g/dl (14.0-18.0); Imm Gran Abs Auto 0.03 X10*3/uL (0.00-0.03); Imm Gran Pct Auto 0.2 % (0.0-0.4); Lymphocytes Absolute Auto 1.9 X10*3/uL (1.2-4.9); Lymphocytes Percent Auto 14.7 % (20-40); Mean Corpuscular HGB Conc 31.8 g/dl (31.0-36.0); Mean Corpuscular Hemoglobin 27.6 pg (27.0-33.0); Mean Corpuscular Volume 86.8 fL (80.0-98.0); Mean Platelet Volume 10.6 fL (9.4-12.4); Monocytes Absolute Auto 1.1 X10*3/uL (0.1-1.2); Monocytes Percent Auto 8.3 % (2-11); Neutrophils Absolute Auto 9.5 x10*3/uL (2.0-8.3); Neutrophils Percent Auto 74.1 % (45-73); Platelet Count 268 X10*3/uL (160-400); Red Blood Count 4.17 X10*6/uL (4.60-5.80); Red Cell Distribution Width 13.5 % (11.0-16.0); White Blood Count 12.8 X10*3/uL (4.8-10.8)
[2021-10-15] MEDS: 0.9 % Sodium Chloride 1,000 ML 125 ML IVCONT ×2 (08:16→16:23)
[2021-10-15] MEDS: ondansetron HCL 4 MG/2 ML VIAL IVPUSH (08:16)
[2021-10-15 09:09] LABS: Appearance Urine Cloudy; Color Urine Yellow; Glucose Urine UA Negative (Negative); Leukocyte Esterase Urine Large (3+) (Negative); Nitrite Urine Negative (Negative); PH 5.5 (5.0-9.0); Specific Gravity - Urine 1.015 (1.005-1.025); Urine Blood Trace (Negative); Urine Ketones Negative (Negative); Urine Protein 300 (3+) mg/dL (Neg-Trace)
[2021-10-15 09:14] LABS: Bacteria Urine 4+ (None Seen); RBC Urine 0-2 /HPF (0-2); Squamous Epithelial Cell Urine 0-2 /HPF (0-2); UACC Culture Trigger YES; WBC Urine >50 /HPF (0-5)
[2021-10-15 09:27] LABS: Anion Gap 17 (12-20); Blood Urea Nitrogen 28 mg/dL (9-16); Calcium 8.6 mg/dL (8.4-10.2); Carbon Dioxide 20 mmol/L (22-29); Chloride 110 mmol/L (96-108); Creatinine Clr Calc Pharmacy 20.3; Estimated Glomerular Filt Rate 20; Glucose Random 174 mg/dL (60-115); Sodium 143 mmol/L (135-145)
[2021-10-15 10:27] LABS: Lactic Acid 0.7 mmol/L (0.5-2.0)
[2021-10-15] MEDS: cefTRIAXone sodium 1 GM in 0.9 % Sodium Chloride 50 ML IV (10:32)
--- NOTE | 2021-10-15 10:52 | PHA.MEDREC ---
Pharmacy Consult ? Medication Reconciliation Pharmacy has completed the medication reconciliation.
--- NOTE | 2021-10-15 11:08 | P.HPHOSP_ITS ---
History of Present Illness Date of Service: 10/15/21 Chief Complaint: left flank pain 80M with pmh CVA, HTN, nephrolithiasis, CKD IV, colon ca s/p colostomy, ptsd, presented with left flank pain. pain is 10/10, sharp, similar to previous kidney stones, present for last 2 days ptp. denies fever, chills, sob. in ED us showed unchanged left hydro with old scarring, no obvious stone. wbc elevated 12.8, bacturia and pyuria. Review of Systems Review of Systems: Constitutional: Denies fever, denies Chills Eyes: denies blurry vision ENT: denies sore throat CVS: denies chest pain Respiratory: Denies dyspnea GI: no abdominal pain : denies dysuria MSK: denies neck pain Skin: denies rash Neuro: denies specific motor weakness Psych: denies suicidal ideation Endocrine: denies heat/cold intolerance Hematologic: denies easy bleeding Allergy: denies hives [facility] Medical History Cancer of kidney Colon cancer Colostomy in place Diabetes type 2, controlled High cholesterol HTN (hypertension) PTSD (post-traumatic stress disorder) Stroke Family History Father Stroke Social History Household Members: Spouse Housing: House Do you presently have visiting nurse or other home services: No Alcohol intake: never Patient Tobacco Use Status: Never used Tobacco Advance Directives: No Advance Directives Information Provided: Yes service: Yes Current occupational status: retired Meds Allergies Allergy/AdvReac Type Severity Reaction Status Date / Time erythromycin base Allergy Severe TREMORS Verified 08/26/20 12:00 [ERYTHROMYCIN BASE] morphine [MORPHINE] Allergy Severe HALLUCINATI Verified 08/26/20 12:00 ONS acetaminophen [From Percocet] AdvReac Intermediate agitation Verified 10/15/21 10:59 oxycodone [From Percocet] AdvReac Intermediate agitation Verified 10/15/21 10:59 prochlorperazine AdvReac dystonia Verified 10/15/21 10:59 [From Compazine] Active Medications: Current Medications Amlodipine Besylate (Amlodipine Besylate 5 Mg Tablet) 5 mg PO BID [facility]; Protocol Ascorbic Acid (Ascorbic Acid 500 Mg Tablet) 1,000 mg PO BID [facility] Atorvastatin Calcium (Atorvastatin Calcium 10 Mg Tablet) 10 mg PO BEDTIME [facility] Carvedilol (Carvedilol 25 Mg Tablet) 25 mg PO BID [facility]; Protocol Dipyridamole/Aspirin (Aspirin/Dipyridamole Er 25/200 Cpmp.12hr) 1 cap PO BID [facility] Docusate Sodium (Docusate Sodium 100 Mg Capsule) 100 mg PO DAILY [facility] Duloxetine HCl (Duloxetine Hcl 30 Mg Capsule.Dr) 30 mg PO BEDTIME [facility] Famotidine (Famotidine 20 Mg Tablet) 20 mg PO BID [facility] Hydralazine HCl (Hydralazine Hcl 50 Mg Tablet) 50 mg PO BID [facility]; Protocol Sodium Chloride (Ns) 1,000 mls @ 125 mls/hr IVCONT .Q8H [facility] Last Admin: 10/15/21 08:16 Dose: 125 mls/hr Ceftriaxone Sodium 1 gm/ (Sodium Chloride) 50 mls @ 100 mls/hr IV Q24H [facility] Last Infusion: 10/15/21 11:07 Dose: Infused Lisinopril (Lisinopril 5 Mg Tablet) 5 mg PO BID [facility]; Protocol Multivitamins/Vitamin C (Multivitamin Tablet) 1 tab PO DAILY [facility] Non-Formulary Medication (Calcium Carbonate) 1,300 mg PO BID [facility] Non-Formulary Medication (Lactobacillus Acidophilus) 2,000 mmu cells PO DAILY [facility] Non-Formulary Medication (Coenzyme Q10 [Coq-10]) 300 mg PO DAILY [facility] Non-Formulary Medication (Magnesium Oxide) 1 tab PO BID [facility] Non-Formulary Medication (Mecobalamin (Vitamin B12) [B12 Active]) 500 mcg PO DAILY [facility] Non-Formulary Medication (Melatonin) 10 mg PO BEDTIME PRN PRN Reason: Insomnia Pharmacy Consult (Consult Rx Perform Med Rec) 1 each MISCELLANE ONCE PRN PRN Reason: Consult order Sodium Bicarbonate (Sodium Bicarbonate 650 Mg Tablet) 650 mg PO BID [facility] Vitamin D (Cholecalciferol (Vitamin D3) 25 Mcg Tablet) 50 mcg PO DAILY [facility] Zinc Sulfate (Zinc Sulfate 220 Mg Capsule) 50 mg PO DAILY [facility] Home Medications Medication Instructions Recorded Confirmed Last Taken Type acetaminophen 325 mg tablet 650 mg PO BEDTIME PRN Pain 08/26/20 10/15/21 10/14/21 History amlodipine 5 mg tablet 1 tab PO BID 08/26/20 10/15/21 10/14/21 History ascorbic acid (vitamin C) 500 mg 1,000 mg PO BID 08/26/20 10/15/21 10/14/21 History tablet (Vitamin C) aspirin 25 mg-dipyridamole 200 mg 1 cap PO BID 08/26/20 10/15/21 10/14/21 History capsule,ext.release 12 hr multiphase atorvastatin 10 mg tablet 10 mg PO BEDTIME 08/26/20 10/15/21 10/14/21 History calcium carbonate 650 mg calcium 1,300 mg PO BID 08/26/20 10/15/21 10/14/21 History (1,625 mg) tablet cholecalciferol (vitamin D3) 50 50 mcg PO DAILY 08/26/20 10/15/21 10/14/21 History mcg (2,000 unit) capsule (Vitamin D3) coenzyme Q10 100 mg capsule 300 mg PO DAILY 08/26/20 10/15/21 10/14/21 History (CoQ-10) docusate sodium 100 mg capsule 100 mg PO DAILY 08/26/20 10/15/21 10/14/21 History (Colace) duloxetine 30 mg capsule,delayed 1 cap PO BEDTIME 08/26/20 10/15/21 10/14/21 History release famotidine 20 mg tablet 20 mg PO BID 08/26/20 10/15/21 10/14/21 History hydralazine 50 mg tablet 50 mg PO BID 08/26/20 10/15/21 10/14/21 History magnesium oxide 420 mg tablet 1 tab PO BID 08/26/20 10/15/21 10/14/21 History mecobalamin (vitamin B12) 1,000 500 mcg PO DAILY 08/26/20 10/15/21 10/14/21 History mcg chewable tablet (B12 Active) melatonin 5 mg capsule 10 mg PO BEDTIME PRN Insomnia 08/26/20 10/15/21 10/14/21 History multivitamin 1 tab PO DAILY 08/26/20 10/15/21 10/14/21 History ondansetron 4 mg disintegrating 4 mg PO Q6H PRN Nausea 08/26/20 10/15/21 10/03/21 History tablet potassium chloride 20 mEq 1 tab PO DAILY 08/10/15/21 10/14/21 History tablet,extended release(part/cryst) sodium bicarbonate 650 mg tablet 1 tab PO BID 10/04/21 10/15/21 10/14/21 History zinc sulfate 50 mg zinc (220 mg) 1 cap PO DAILY 10/04/21 10/15/21 10/14/21 History capsule Lactobacillus acidophilus 1 2,000 mmu cells PO DAILY 10/15/21 10/15/21 10/14/21 History billion cell tablet carvedilol 25 mg tablet 1 tab PO BID 10/15/21 10/15/21 10/14/21 History lisinopril 5 mg tablet 1 tab PO BID 10/15/21 10/15/21 10/14/21 History Physical Exam Vital Signs and Narrative: Vital Signs: Last Vital Signs Temp 97.9 F 10/15/21 10:30 Pulse 73 10/15/21 10:30 Resp 14 10/15/21 10:30 BP 163/75 H 10/15/21 10:30 Pulse Ox 96 10/15/21 10:30 O2 Del Method 10/15/21 10:30 BMI result Body Mass Index 24.5 General: no acute distress HEENT: atraumatic Neck: normal to visual inspection CVS: S1, S2, RRR Resp: CTA bilateral Chest: non tender GI: soft, non tender, non distended : no CVA tenderness Skin: no rashes Extremities: no edema Neuro: Oriented X3, grossly intact Psych: cooperative Results Labs CBC and Chem 7: 10/15/21 08:02 10/15/21 08:55 Labs: Laboratory Results - last 24 hr 10/15/21 10/15/21 10/15/21 08:02 08:55 08:55 MCV 86.8 MCH 27.6 MCHC 31.8 RDW 13.5 Plt Count 268 MPV 10.6 Immature Gran % (Auto) 0.2 Neut % (Auto) 74.1 H Lymph % (Auto) 14.7 L [place] % (Auto) 8.3 Eos % (Auto) 2.0 Baso % (Auto) 0.7 Lymph # (Auto) 1.9 [place] # (Auto) 1.1 Eos # (Auto) 0.3 Baso # (Auto) 0.1 Abs Immat Gran (auto) 0.03 Absolute Neuts (auto) 9.5 H Absolute Nucleated RBC 0.000 Nucleated RBC % (auto) 0.0 Anion Gap 17 Estim Creat Clear Calc 20.3 Estimated GFR 20 Random Glucose 174 H Lactic Acid Calcium 8.6 D Urine Color Yellow Urine Appearance Cloudy Urine pH 5.5 Ur Specific [place] 1.015 Urine Protein 300 (3+) H Urine Glucose (UA) Negative Urine Ketones Negative Urine Blood Trace H Urine Nitrite Negative Ur Leukocyte Esterase Large (3+) H Urine RBC 0-2 Urine WBC >50 H Ur Squamous Epith Cells 0-2 Urine Bacteria 4+ Hyaline Casts 3-5 10/15/21 10:11 MCV MCH MCHC RDW Plt Count MPV Immature Gran % (Auto) Neut % (Auto) Lymph % (Auto) [place] % (Auto) Eos % (Auto) Baso % (Auto) Lymph # (Auto) [place] # (Auto) Eos # (Auto) Baso # (Auto) Abs Immat Gran (auto) Absolute Neuts (auto) Absolute Nucleated RBC Nucleated RBC % (auto) Anion Gap Estim Creat Clear Calc Estimated GFR Random Glucose Lactic Acid 0.7 Calcium Urine Color Urine Appearance Urine pH Ur Specific [place] Urine Protein Urine Glucose (UA) Urine Ketones Urine Blood Urine Nitrite Ur Leukocyte Esterase Urine RBC Urine WBC Ur Squamous Epith Cells Urine Bacteria Hyaline Casts Imaging Radiologist's Impressions: Impressions Renal Ultrasound 10/15/21 08:33 IMPRESSION: 1. Moderate left hydronephrosis appears similar if not mildly decreased compared to the most recent CT scan. Please refer to the report from the CT study for more detailed findings. 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 therfore, expected to require atleast 2 midnights Quality Stroke Does the patient have a stroke diagnosis?: No VTE Prior VTE?: No VTE Risk Level:: Medical - moderate - high VTE Device Contraindication: Treatment Not Indicated VTE Drug Contraindication: N/A - Med Ordered
--- NOTE | 2021-10-15 11:51 | P.CNUR_ITS ---
History of Present Illness Consult details Consult date: 10/15/21 Narrative: CC pyelonephritis 80-year-old male presents with left-sided flank pain and question of kidney stone Imaging shows normal right kidney and some degree of hydroureteronephrosis on the left side WBC 12.8 Creatinine 2.9 BUN 28 Prior history of kidney stones with stone passage on the left side. Presumed scarring of distal left ureter Recommend conservative therapy with rehydration and antibiotics If creatinine fails to improve may need cystoscopy with left retrograde and stent placement Review of Systems Constitutional: Constitutional: Reports as per HPI and Reports no additional constitutional complaints Cardiovascular: Cardiovascular: Reports as per HPI and Reports no additional cardiovascular complaints Respiratory: Respiratory: Reports as per HPI and Reports no additional respiratory complaints Gastrointestinal: Gastrointestinal: Reports as per HPI and Reports no additional gastrointestinal complaints Genitourinary: Genitourinary: Reports as per HPI Musculoskeletal: Musculoskeletal: Reports no additional musculoskeletal complaints and Reports as per HPI Neurologic: Reports system reviewed and no additional complaints, except as documented and Reports as per HPI PMFSH Past Medical History Medical History Cancer of kidney Colon cancer Colostomy in place Diabetes type 2, controlled High cholesterol HTN (hypertension) PTSD (post-traumatic stress disorder) Stroke Family History Family History Father Stroke Social History Social History Household Members: Spouse Housing: House Do you presently have visiting nurse or other home services: No Alcohol intake: never Patient Tobacco Use Status: Never used Tobacco Advance Directives: No Advance Directives Information Provided: Yes service: Yes Current occupational status: retired Meds Allergies Allergy/AdvReac Type Severity Reaction Status Date / Time erythromycin base Allergy Severe TREMORS Verified 08/26/20 12:00 [ERYTHROMYCIN BASE] morphine [MORPHINE] Allergy Severe HALLUCINATI Verified 08/26/20 12:00 ONS acetaminophen [From Percocet] AdvReac Intermediate agitation Verified 10/15/21 10:59 oxycodone [From Percocet] AdvReac Intermediate agitation Verified 10/15/21 10:59 prochlorperazine AdvReac dystonia Verified 10/15/21 10:59 [From Compazine] Active Medications: Current Medications Amlodipine Besylate (Amlodipine Besylate 5 Mg Tablet) 5 mg PO BID [facility]; Protocol Ascorbic Acid (Ascorbic Acid 500 Mg Tablet) 1,000 mg PO BID [facility] Atorvastatin Calcium (Atorvastatin Calcium 10 Mg Tablet) 10 mg PO BEDTIME [facility] Calcium Carbonate (Calcium Carbonate 750 Mg Tab.Chew) 1,125 mg PO BID [facility] Carvedilol (Carvedilol 25 Mg Tablet) 25 mg PO BID [facility]; Protocol Cyanocobalamin (Cyanocobalamin (Vitamin B-12) 500 Mcg Tablet) 500 mcg PO DAILY [facility] Dipyridamole/Aspirin (Aspirin/Dipyridamole Er 25/200 Cpmp.12hr) 1 cap PO BID [facility] Docusate Sodium (Docusate Sodium 100 Mg Capsule) 100 mg PO DAILY [facility] Duloxetine HCl (Duloxetine Hcl 30 Mg Capsule.Dr) 30 mg PO BEDTIME [facility] Famotidine (Famotidine 20 Mg Tablet) 10 mg PO DAILY [facility] Heparin Sodium (Porcine) (Heparin Sodium,Porcine 5,000 Unit/Ml Vial) 5,000 unit SUBCUT Q8H [facility] Hydralazine HCl (Hydralazine Hcl 50 Mg Tablet) 50 mg PO BID [facility]; Protocol Hydromorphone HCl (Hydromorphone Hcl 1 Mg/Ml Syringe) 0.5 mg IVPUSH Q4H PRN; Protocol PRN Reason: Pain, Severe (Pain Scale 7-10) Sodium Chloride (Ns) 1,000 mls @ 125 mls/hr IVCONT .Q8H [facility] Last Admin: 10/15/21 08:16 Dose: 125 mls/hr Ceftriaxone Sodium 1 gm/ (Sodium Chloride) 50 mls @ 100 mls/hr IV Q24H [facility] Last Infusion: 10/15/21 11:07 Dose: Infused Lisinopril (Lisinopril 5 Mg Tablet) 5 mg PO BID [facility]; Protocol Magnesium Oxide (Magnesium Oxide 400 Mg Tablet) 400 mg PO BID [facility] Melatonin (Melatonin 3 Mg Tablet) 9 mg PO BEDTIME PRN PRN Reason: Insomnia Multivitamins/Vitamin C (Multivitamin Tablet) 1 tab PO DAILY [facility] Pharmacy Consult (Consult Rx Perform Med Rec) 1 each MISCELLANE ONCE PRN PRN Reason: Consult order Sodium Bicarbonate (Sodium Bicarbonate 650 Mg Tablet) 650 mg PO BID [facility] Sodium Chloride (0.9 % Sodium Chloride Flush 3 Ml Syringe) 3 ml IVFLUSH QSHIFT [facility] Vitamin D (Cholecalciferol (Vitamin D3) 25 Mcg Tablet) 50 mcg PO DAILY [facility] Zinc Sulfate (Zinc Sulfate 220 Mg Capsule) 50 mg PO DAILY [facility] Home Medications Medication Instructions Recorded Confirmed Last Taken Type acetaminophen 325 mg tablet 650 mg PO BEDTIME PRN Pain 08/26/20 10/15/21 10/14/21 History amlodipine 5 mg tablet 1 tab PO BID 08/26/20 10/15/21 10/14/21 History ascorbic acid (vitamin C) 500 mg 1,000 mg PO BID 08/26/20 10/15/21 10/14/21 History tablet (Vitamin C) aspirin 25 mg-dipyridamole 200 mg 1 cap PO BID 08/26/20 10/15/21 10/14/21 H istory capsule,ext.release 12 hr multiphase atorvastatin 10 mg tablet 10 mg PO BEDTIME 08/26/20 10/15/21 10/14/21 History calcium carbonate 650 mg calcium 1,300 mg PO BID 08/26/20 10/15/21 10/14/21 History (1,625 mg) tablet cholecalciferol (vitamin D3) 50 50 mcg PO DAILY 08/26/20 10/15/21 10/14/21 History mcg (2,000 unit) capsule (Vitamin D3) coenzyme Q10 100 mg capsule 300 mg PO DAILY 08/26/20 10/15/21 10/14/21 History (CoQ-10) docusate sodium 100 mg capsule 100 mg PO DAILY 08/26/20 10/15/21 10/14/21 History (Colace) duloxetine 30 mg capsule,delayed 1 cap PO BEDTIME 08/26/20 10/15/21 10/14/21 History release famotidine 20 mg tablet 20 mg PO BID 08/26/20 10/15/21 10/14/21 History hydralazine 50 mg tablet 50 mg PO BID 08/26/20 10/15/21 10/14/21 History magnesium oxide 420 mg tablet 1 tab PO BID 08/26/20 10/15/21 10/14/21 History mecobalamin (vitamin B12) 1,000 500 mcg PO DAILY 08/26/20 10/15/21 10/14/21 History mcg chewable tablet (B12 Active) melatonin 5 mg capsule 10 mg PO BEDTIME PRN Insomnia 08/26/20 10/15/21 10/14/21 History multivitamin 1 tab PO DAILY 08/26/20 10/15/21 10/14/21 History ondansetron 4 mg disintegrating 4 mg PO Q6H PRN Nausea 08/26/20 10/15/21 10/03/21 History tablet potassium chloride 20 mEq 1 tab PO DAILY 10/04/21 10/15/21 10/14/21 History tablet,extended release(part/cryst) sodium bicarbonate 650 mg tablet 1 tab PO BID 10/04/21 10/15/21 10/14/21 History zinc sulfate 50 mg zinc (220 mg) 1 cap PO DAILY 10/04/21 10/15/21 10/14/21 History capsule Lactobacillus acidophilus 1 2,000 mmu cells PO DAILY 10/15/21 10/15/21 10/14/21 History billion cell tablet carvedilol 25 mg tablet 1 tab PO BID 10/15/21 10/15/21 10/14/21 History lisinopril 5 mg tablet 1 tab PO BID 10/15/21 10/15/21 10/14/21 History Physical Exam Vital Signs: Vital Signs: Last Vital Signs Temp 97.9 F 10/15/21 10:30 Pulse 73 10/15/21 10:30 Resp 14 10/15/21 10:30 BP 163/75 H 10/15/21 10:30 Pulse Ox 96 10/15/21 10:30 O2 Del Method 10/15/21 10:30 BMI result Body Mass Index 24.5 Const: General: cooperative, healthy appearing, comfortable and no acute distress Orientation/consciousness: patient oriented x3 HEENT: Face and sinus: Yes normal facial exam Mouth: moist mucous membranes Neck: Neck: Yes normal visual inspection, Yes full ROM and Yes trachea midline Chest: Chest palpation & inspection: normal inspection of the chest Resp: Effort & Inspection: normal respiratory effort, able to speak in complete sentences and no respiratory distress GI: Inspection: Yes normal to inspection Back/Spine/Pelvis: Cervical Spine: normal cervical lordosis Thoracic/Lumbar Spine: thoracic and lumbar spine normal to inspection Skin: General skin exam: no rashes or lesions noted Neuro: General: patient oriented x3, tone normal and moves all extremities Extrem: General: Yes normal to inspection and Yes capillary refill normal Results Labs Result diagrams: 10/15/21 08:02 10/15/21 08:55 Labs: Abnormal lab results 10/15/21 10/15/21 10/15/21 Range/Units 08:02 08:55 08:55 WBC 12.8 H (4.8-10.8) X10*3/uL RBC 4.17 L (4.60-5.80) X10*6/uL Hgb 11.5 L (14.0-18.0) g/dl Hct 36.2 L (42.0-52.0) % Neut % (Auto) 74.1 H (45-73) % Lymph % (Auto) 14.7 L (20-40) % Absolute Neuts (auto) 9.5 H (2.0-8.3) x10*3/uL Chloride 110 H (96-108) mmol/L Carbon Dioxide 20 L (22-29) mmol/L BUN 28 H (9-16) mg/dL Creatinine 2.98 H (0.5-1.4) mg/dL Random Glucose 174 H (60-115) mg/dL Urine Protein 300 (3+) H (Neg-Trace) mg/dL Urine Blood Trace H (Negative) Ur Leukocyte Esterase Large (3+) H (Negative) Urine WBC >50 H (0-5) /HPF Short CBC 10/15/21 Range/Units 08:02 WBC 12.8 H (4.8-10.8) X10*3/uL Hgb 11.5 L (14.0-18.0) g/dl Hct 36.2 L (42.0-52.0) % Plt Count 268 (160-400) X10*3/uL BMP 10/15/21 08:55 Sodium 143 Potassium 4.0 Chloride 110 H Carbon Dioxide 20 L BUN 28 H Creatinine 2.98 H Calcium 8.6 D Urine 10/15/21 Range/Units 08:55 Urine Color Yellow Urine Appearance Cloudy Urine pH 5.5 (5.0-9.0) Ur Specific [place] 1.015 (1.005-1.025) Urine Protein 300 (3+) H (Neg-Trace) mg/dL Urine Glucose (UA) Negative (Negative) mg/dL All other labs normal. Assessment and Plan (1) Hydronephrosis: Status: Acute Plan Conservative therapy with reassessment Procedures Date of Service Date of Service: 10/15/21
--- NOTE | 2021-10-15 12:01 | PC.NURSE ---
Addendum entered by Dioni Chavez 10/15/21 15:22: Patients blood pressure continues to be elevated. Dr. Taveras notified. Original Note: Dr. Taveras made aware of patients increased BP
[2021-10-15] MEDS: Heparin Sodium,Porcine 5,000 UNIT/ML VIAL 5000 UNIT SUBCUT ×2 (12:28→20:25)
[2021-10-15 12:52] LABS: COVID-19 Test Negative (Negative)
[2021-10-15] MEDS: HYDROmorphone HCl 1 MG/ML SYRINGE 0.5 MG IVPUSH ×2 (13:42→18:07)
--- NOTE | 2021-10-15 13:48 | MHC.CM.ED ---
Received notification from Nita at registration patient requesting to complete HCP. Met with patient. HCP completed, signed and witnessed. Original given to patient. Copy placed in chart. Continue to monitor for d/c needs.
--- NOTE | 2021-10-15 14:08 | PC.NURSE ---
called floor to give report- obtained nurses name and sent them a tiger text
[2021-10-15] MEDS: amLODIPine Besylate 5 MG TABLET PO ×2 (16:44→20:26)
[2021-10-15] MEDS: Ascorbic Acid 500 MG TABLET 1000 MG PO (20:25)
[2021-10-15] MEDS: Calcium Carbonate 750 MG TAB.CHEW 1125 MG PO (20:25)
[2021-10-15] MEDS: carvediloL 25 MG TABLET PO (20:25)
[2021-10-15] MEDS: hydrALAZINE HCl 50 MG TABLET PO (20:26)
[2021-10-15] MEDS: Magnesium Oxide 400 MG TABLET PO (20:26)
[2021-10-15] MEDS: lisinopriL 5 MG TABLET PO (20:26)
[2021-10-15] MEDS: Sodium Bicarbonate 650 MG TABLET PO (20:26)
[2021-10-15] MEDS: DULoxetine HCl 30 MG CAPSULE.DR PO (20:26)
[2021-10-15] MEDS: Atorvastatin Calcium 10 MG TABLET PO (20:26)
[2021-10-15] MEDS: 0.9 % Sodium Chloride Flush 3 ML SYRINGE IVFLUSH (20:27)
[2021-10-16] MEDS: 0.9 % Sodium Chloride 1,000 ML 125 ML IVCONT ×2 (00:29→08:42)
[2021-10-16] MEDS: Heparin Sodium,Porcine 5,000 UNIT/ML VIAL 5000 UNIT SUBCUT ×3 (06:01→18:35)
[2021-10-16 06:29] LABS: Hematocrit 30.5 % (42.0-52.0); Hemoglobin 9.8 g/dl (14.0-18.0); Mean Corpuscular HGB Conc 32.1 g/dl (31.0-36.0); Mean Corpuscular Hemoglobin 27.8 pg (27.0-33.0); Mean Corpuscular Volume 86.4 fL (80.0-98.0); Mean Platelet Volume 11.1 fL (9.4-12.4); Platelet Count 223 X10*3/uL (160-400); Red Blood Count 3.53 X10*6/uL (4.60-5.80); Red Cell Distribution Width 13.8 % (11.0-16.0); White Blood Count 8.6 X10*3/uL (4.8-10.8)
[2021-10-16 06:42] LABS: Anion Gap 15 (12-20); Blood Urea Nitrogen 26 mg/dL (9-16); Carbon Dioxide 21 mmol/L (22-29); Chloride 110 mmol/L (96-108); Creatinine Clr Calc Pharmacy 21.4; Estimated Glomerular Filt Rate 22; Glucose Fasting 151 mg/dL (60-99); Potassium 4.1 mmol/L (3.3-5.1); Sodium 142 mmol/L (135-145)
[2021-10-16 08:00] VITALS: BP 163/74; PULSE 61; RESP 18; TEMP 37.2; O2SAT 93
[2021-10-16] MEDS: Docusate Sodium 100 MG CAPSULE PO (08:12)
[2021-10-16] MEDS: Cyanocobalamin (Vitamin B-12) 500 MCG TABLET PO (08:12)
[2021-10-16] MEDS: hydrALAZINE HCl 50 MG TABLET PO ×2 (08:13→20:48)
[2021-10-16] MEDS: Calcium Carbonate 750 MG TAB.CHEW 1125 MG PO ×2 (08:13→20:48)
[2021-10-16] MEDS: Sodium Bicarbonate 650 MG TABLET PO ×2 (08:13→20:49)
[2021-10-16] MEDS: carvediloL 25 MG TABLET PO ×2 (08:13→20:48)
[2021-10-16] MEDS: amLODIPine Besylate 5 MG TABLET PO ×2 (08:13→20:49)
[2021-10-16] MEDS: Cholecalciferol (Vitamin D3) 25 MCG TABLET 50 MCG PO (08:13)
[2021-10-16] MEDS: Famotidine 20 MG TABLET 10 MG PO (08:14)
[2021-10-16] MEDS: Magnesium Oxide 400 MG TABLET PO ×2 (08:14→20:48)
[2021-10-16] MEDS: lisinopriL 5 MG TABLET PO ×2 (08:15→20:48)
[2021-10-16] MEDS: Ascorbic Acid 500 MG TABLET 1000 MG PO ×2 (08:15→20:48)
[2021-10-16] MEDS: Multivitamin TABLET 1 TAB PO (08:15)
--- NOTE | 2021-10-16 08:50 | P.PNIM_ITS ---
Subjective Subjective Date of Service: 10/16/21 Interval History: cc: left flank pain interval history: flank pain improving Cardiovascular Cardiovascular: Reports no additional cardiovascular complaints Respiratory Respiratory: Reports no additional respiratory complaints Physical Exam Vital Signs: Vital Signs: Last Vital Signs Temp 98.9 F 10/16/21 08:00 Pulse 61 10/16/21 08:00 Resp 18 10/16/21 08:00 BP 163/74 H 10/16/21 08:00 Pulse Ox 93 10/16/21 08:00 O2 Del Method 10/16/21 08:00 BMI result Body Mass Index 24.5 General: AO X 3, no acute distress Resp: CTA bilateral, no accessory muscles used CVS: S1,S2,RRR GI: soft, non tender, non distended Neuro: motor grossly intact, alert Psych: appropriate affect, appropriate insight Objective Data Active Medications Amlodipine Besylate (Amlodipine Besylate 5 Mg Tablet) 5 mg PO BID [facility]; Protocol Last Admin: 10/16/21 08:13 Dose: 5 mg Documented By: DANAY Ascorbic Acid (Ascorbic Acid 500 Mg Tablet) 1,000 mg PO BID [facility] Last Admin: 10/16/21 08:15 Dose: 1,000 mg Documented By: DANAY Atorvastatin Calcium (Atorvastatin Calcium 10 Mg Tablet) 10 mg PO BEDTIME [facility] Last Admin: 10/15/21 20:26 Dose: 10 mg Documented By: HOMAR Calcium Carbonate (Calcium Carbonate 750 Mg Tab.Chew) 1,125 mg PO BID [facility] Last Admin: 10/16/21 08:13 Dose: 1,125 mg Documented By: DANAY Carvedilol (Carvedilol 25 Mg Tablet) 25 mg PO BID [facility]; Protocol Last Admin: 10/16/21 08:13 Dose: 25 mg Documented By: DANAY Cyanocobalamin (Cyanocobalamin (Vitamin B-12) 500 Mcg Tablet) 500 mcg PO DAILY [facility] Last Admin: 10/16/21 08:12 Dose: 500 mcg Documented By: DANAY Dipyridamole/Aspirin (Aspirin/Dipyridamole Er 25/200 Cpmp.12hr) 1 cap PO BID [facility] Last Admin: 10/16/21 08:13 Dose: 1 cap Documented By: DANAY Docusate Sodium (Docusate Sodium 100 Mg Capsule) 100 mg PO DAILY [facility] Last Admin: 10/16/21 08:12 Dose: 100 mg Documented By: DANAY Duloxetine HCl (Duloxetine Hcl 30 Mg Capsule.) 30 mg PO BEDTIME [facility] Last Admin: 10/15/21 20:26 Dose: 30 mg Documented By: HOMAR Famotidine (Famotidine 20 Mg Tablet) 10 mg PO DAILY [facility] Last Admin: 10/16/21 08:14 Dose: 10 mg Documented By: DANAY Heparin Sodium (Porcine) (Heparin Sodium,Porcine 5,000 Unit/Ml Vial) 5,000 unit SUBCUT Q8H [facility] Last Admin: 10/16/21 06:01 Dose: 5,000 unit Documented By: HOMAR Hydralazine HCl (Hydralazine Hcl 50 Mg Tablet) 50 mg PO BID [facility]; Protocol Last Admin: 10/16/21 08:13 Dose: 50 mg Documented By: DANAY Hydromorphone HCl (Hydromorphone Hcl 1 Mg/Ml Syringe) 0.5 mg IVPUSH Q4H PRN; Protocol PRN Reason: Pain, Severe (Pain Scale 7-10) Last Admin: 10/15/21 18:07 Dose: 0.5 mg Documented By: LUIS Ceftriaxone Sodium 1 gm/ (Sodium Chloride) 50 mls @ 100 mls/hr IV Q24H [facility] Last Infusion: 10/15/21 11:07 Dose: 0 mls/hr Documented By: CARRIE Lisinopril (Lisinopril 5 Mg Tablet) 5 mg PO BID [facility]; Protocol Last Admin: 10/16/21 08:15 Dose: 5 mg Documented By: DANAY Magnesium Oxide (Magnesium Oxide 400 Mg Tablet) 400 mg PO BID [facility] Last Admin: 10/16/21 08:14 Dose: 400 mg Documented By: DANAY Melatonin (Melatonin 3 Mg Tablet) 9 mg PO BEDTIME PRN PRN Reason: Insomnia Multivitamins/Vitamin C (Multivitamin Tablet) 1 tab PO DAILY [facility] Last Admin: 10/16/21 08:15 Dose: 1 tab Documented By: DANAY Pharmacy Consult (Consult Rx Perform Med Rec) 1 each MISCELLANE ONCE PRN PRN Reason: Consult order Sodium Bicarbonate (Sodium Bicarbonate 650 Mg Tablet) 650 mg PO BID [facility] Last Admin: 10/16/21 08:13 Dose: 650 mg Documented By: DANAY Sodium Chloride (0.9 % Sodium Chloride Flush 3 Ml Syringe) 3 ml IVFLUSH QSHIFT [facility] Last Admin: 10/16/21 08:23 Dose: Not Given Documented By: DANAY Non-Admin Reason: IV Running Vitamin D (Cholecalciferol (Vitamin D3) 25 Mcg Tablet) 50 mcg PO DAILY [facility] Last Admin: 10/16/21 08:13 Dose: 50 mcg Documented By: DANAY Zinc Sulfate (Zinc Sulfate 220 Mg Capsule) 50 mg PO DAILY [facility] Labs CBC & Chem 7: 10/16/21 05:27 10/16/21 05:27 Labs: Laboratory Results - last 24 hr 10/15/21 10/15/21 10/15/21 08:55 08:55 10:11 MCV MCH MCHC RDW Plt Count MPV Absolute Nucleated RBC Nucleated RBC % (auto) Anion Gap 17 Estim Creat Clear Calc 20.3 Estimated GFR 20 Random Glucose 174 H Fasting Glucose Lactic Acid 0.7 Calcium 8.6 D Urine Color Yellow Urine Appearance Cloudy Urine pH 5.5 Ur Specific [place] 1.015 Urine Protein 300 (3+) H Urine Glucose (UA) Negative Urine Ketones Negative Urine Blood Trace H Urine Nitrite Negative Ur Leukocyte Esterase Large (3+) H Urine RBC 0-2 Urine WBC >50 H Ur Squamous Epith Cells 0-2 Urine Bacteria 4+ Hyaline Casts 3-5 COVID-19 (AMEYA) COVID-19 Clin Com 10/15/21 10/16/21 10/16/21 12:27 05:27 05:27 MCV Cancelled MCH Cancelled MCHC Cancelled RDW Cancelled Plt Count Cancelled MPV Cancelled Absolute Nucleated RBC Cancelled Nucleated RBC % (auto) Cancelled Anion Gap 15 Estim Creat Clear Calc 21.4 Estimated GFR 22 Random Glucose TNP Fasting Glucose 151 H Lactic Acid Calcium 8.0 L D Urine Color Urine Appearance Urine pH Ur Specific [place] Urine Protein Urine Glucose (UA) Urine Ketones Urine Blood Urine Nitrite Ur Leukocyte Esterase Urine RBC Urine WBC Ur Squamous Epith Cells Urine Bacteria Hyaline Casts COVID-19 ([facility]) Negative COVID-19 Clin Com See Note 10/16/21 05:27 MCV 86.4 MCH 27.8 MCHC 32.1 RDW 13.8 Plt Count 223 MPV 11.1 Absolute Nucleated RBC 0.000 Nucleated RBC % (auto) 0.0 Anion Gap Estim Creat Clear Calc Estimated GFR Random Glucose Fasting Glucose Lactic Acid Calcium Urine Color Urine Appearance Urine pH Ur Specific [place] Urine Protein Urine Glucose (UA) Urine Ketones Urine Blood Urine Nitrite Ur Leukocyte Esterase Urine RBC Urine WBC Ur Squamous Epith Cells Urine Bacteria Hyaline Casts COVID-19 ([facility]) COVID-19 Clin Com Microbiology Microbiology Results: Microbiology 10/15/21 00:00 Urine Culture - Preliminary Urine clean catch - Urine cowart top Culture in progress. 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 continue rocephin, follow up cultures pain control improving, dilaudid as needed appreciated - recommending conservative treatement with antibiotics for now as improving, if does not continue to improve may need cysto/stent history of cva aggrenox, statin htn hydralazine, amldoipnie, coreg, lisinopril ckd IV stable, monitor ptsd duloxetine history of colon ca outpatient follow up dvt prophyalxis - hep sq full code reason for continued hospitalization: conitnued iv abx while awaiting cultures as patient high risk for decompensation Quality Stroke Does the patient have a stroke diagnosis?: No VTE Prior VTE?: No VTE Risk Level:: Medical - moderate - high VTE Device Contraindication: Treatment Not Indicated VTE Drug Contraindication: N/A - Med Ordered
--- NOTE | 2021-10-16 09:34 | MHC.CM.PN ---
PATIENT LIVES WITH HIS NEW HCP IN CHART PATIENT IS 100% [facility]. PATIENT REPORTS FURNITURE WALKING WITH NO WALKER OR CANE. HE RECENTLY APPLIED FOR ASSISTANCE IN THE HOME THROUGH THE [facility] CASE MANAGEMENT FOLLOWING FOR DC PLANS. IMM 10/16 IN CHART
[2021-10-16] MEDS: cefTRIAXone sodium 1 GM in 0.9 % Sodium Chloride 50 ML IV (09:42)
[2021-10-16] MEDS: Zinc Sulfate 220 MG CAPSULE PO (09:42)
[2021-10-16 14:54] VITALS: BP 149/68; PULSE 59; RESP 15; TEMP 37.1; O2SAT 96
[2021-10-16] MEDS: 0.9 % Sodium Chloride Flush 3 ML SYRINGE IVFLUSH ×2 (17:13→20:59)
[2021-10-16] MEDS: DULoxetine HCl 30 MG CAPSULE.DR PO (20:48)
[2021-10-16] MEDS: Atorvastatin Calcium 10 MG TABLET PO (20:48)
[2021-10-16 23:26] VITALS: BP 163/74; PULSE 69; RESP 18; TEMP 36.9; O2SAT 93
[2021-10-17] VITALS (7 sets, daily range): BP systolic 161–190; BP diastolic 72–95; PULSE 58–66; RESP 17–20; TEMP 36.2–37.1; O2SAT 94
[2021-10-17] MEDS: Heparin Sodium,Porcine 5,000 UNIT/ML VIAL 5000 UNIT SUBCUT ×3 (03:34→20:21)
[2021-10-17 06:43] LABS: Hematocrit 29.6 % (42.0-52.0); Hemoglobin 9.7 g/dl (14.0-18.0); Mean Corpuscular HGB Conc 32.8 g/dl (31.0-36.0); Mean Corpuscular Hemoglobin 28.1 pg (27.0-33.0); Mean Corpuscular Volume 85.8 fL (80.0-98.0); Mean Platelet Volume 11.3 fL (9.4-12.4); Platelet Count 213 X10*3/uL (160-400); Red Blood Count 3.45 X10*6/uL (4.60-5.80)
[2021-10-17 06:55] LABS: Anion Gap 16 (12-20); Blood Urea Nitrogen 28 mg/dL (9-16); Carbon Dioxide 20 mmol/L (22-29); Chloride 109 mmol/L (96-108); Creatinine Clr Calc Pharmacy 20.1; Estimated Glomerular Filt Rate 20; Glucose Fasting 160 mg/dL (60-99); Potassium 3.8 mmol/L (3.3-5.1); Sodium 141 mmol/L (135-145)
[2021-10-17] MEDS: Calcium Carbonate 750 MG TAB.CHEW 1125 MG PO ×2 (08:28→20:21)
[2021-10-17] MEDS: Famotidine 20 MG TABLET 10 MG PO (08:29)
[2021-10-17] MEDS: amLODIPine Besylate 5 MG TABLET PO ×2 (08:29→20:20)
[2021-10-17] MEDS: Cyanocobalamin (Vitamin B-12) 500 MCG TABLET PO (08:29)
[2021-10-17] MEDS: hydrALAZINE HCl 50 MG TABLET PO ×2 (08:29→20:20)
[2021-10-17] MEDS: Cholecalciferol (Vitamin D3) 25 MCG TABLET 50 MCG PO (08:29)
[2021-10-17] MEDS: Magnesium Oxide 400 MG TABLET PO ×2 (08:30→20:20)
[2021-10-17] MEDS: Multivitamin TABLET 1 TAB PO (08:30)
[2021-10-17] MEDS: Zinc Sulfate 220 MG CAPSULE PO (08:30)
[2021-10-17] MEDS: 0.9 % Sodium Chloride Flush 3 ML SYRINGE IVFLUSH ×2 (08:30→20:25)
[2021-10-17] MEDS: Ascorbic Acid 500 MG TABLET 1000 MG PO ×2 (08:30→20:20)
[2021-10-17] MEDS: Sodium Bicarbonate 650 MG TABLET PO ×2 (08:30→20:20)
[2021-10-17] MEDS: carvediloL 25 MG TABLET PO ×2 (08:30→20:21)
[2021-10-17] MEDS: Docusate Sodium 100 MG CAPSULE PO (08:30)
[2021-10-17] MEDS: lisinopriL 5 MG TABLET PO ×2 (08:30→20:20)
[2021-10-17] MEDS: cefTRIAXone sodium 1 GM in 0.9 % Sodium Chloride 50 ML IV (09:47)
[2021-10-17] MEDS: Ampicillin Sodium 500 MG in 0.9 % Sodium Chloride 50 ML 100 MG IV ×3 (11:41→23:38)
--- NOTE | 2021-10-17 12:31 | P.PNIM_ITS ---
Subjective Subjective Date of Service: 10/17/21 Interval History: the patient was seen and evaluated this morning Laying in bed, feels comfortable Denies any fever, chills or shortness of breath Flank solved No reported other overnight events. Systemic review: No fever, chills or weakness No chest pain, palpitation No shortness of breath or coughing No abdominal pain, nausea or vomiting No urinary symptoms No any rash or wounds Physical Exam Vital Signs: Vital Signs: Last Vital Signs Temp 98.7 F 10/17/21 11:04 Pulse 58 10/17/21 11:04 Resp 18 10/17/21 11:04 BP 161/78 H 10/17/21 11:04 Pulse Ox 94 10/17/21 11:04 O2 Del Method 10/17/21 11:04 BMI result Body Mass Index 24.5 Const: Other: Constitutional : Alert, oriented, not in distress Neck : Normal inspection, Supple Cardiovascular : RRR, no JVP, no lower extremity edema Respiratory : fair bilateral air entry, no crackles, wheezes or rhonchi Gastrointestinal: soft, lax, Normal bowel sounds, Non tender Skin : Warm, Dry Neurological : Alert & oriented x3, No focal deficit , CN 2-12 within normal Objective Data Active Medications Amlodipine Besylate (Amlodipine Besylate 5 Mg Tablet) 5 mg PO BID [facility]; Protocol Last Admin: 10/17/21 08:29 Dose: 5 mg Documented By: DANAY Ascorbic Acid (Ascorbic Acid 500 Mg Tablet) 1,000 mg PO BID [facility] Last Admin: 10/17/21 08:30 Dose: 1,000 mg Documented By: DANAY Atorvastatin Calcium (Atorvastatin Calcium 10 Mg Tablet) 10 mg PO BEDTIME [facility] Last Admin: 10/16/21 20:48 Dose: 10 mg Documented By: UTE Calcium Carbonate (Calcium Carbonate 750 Mg Tab.Chew) 1,125 mg PO BID [facility] Last Admin: 10/17/21 08:28 Dose: 1,125 mg Documented By: DANAY Carvedilol (Carvedilol 25 Mg Tablet) 25 mg PO BID [facility]; Protocol Last Admin: 10/17/21 08:30 Dose: 25 mg Documented By: DANAY Cyanocobalamin (Cyanocobalamin (Vitamin B-12) 500 Mcg Tablet) 500 mcg PO DAILY [facility] Last Admin: 10/17/21 08:29 Dose: 500 mcg Documented By: DANAY Dipyridamole/Aspirin (Aspirin/Dipyridamole Er 25/200 Cpmp.12hr) 1 cap PO BID [facility] Last Admin: 10/17/21 08:29 Dose: 1 cap Documented By: DANAY Docusate Sodium (Docusate Sodium 100 Mg Capsule) 100 mg PO DAILY [facility] Last Admin: 10/17/21 08:30 Dose: 100 mg Documented By: DANAY Duloxetine HCl (Duloxetine Hcl 30 Mg Capsule.Dr) 30 mg PO BEDTIME [facility] Last Admin: 10/16/21 20:48 Dose: 30 mg Documented By: UTE Famotidine (Famotidine 20 Mg Tablet) 10 mg PO DAILY [facility] Last Admin: 10/17/21 08:29 Dose: 10 mg Documented By: DANAY Heparin Sodium (Porcine) (Heparin Sodium,Porcine 5,000 Unit/Ml Vial) 5,000 unit SUBCUT Q8H [facility] Last Admin: 10/17/21 11:41 Dose: 5,000 unit Documented By: WALTER Hydralazine HCl (Hydralazine Hcl 50 Mg Tablet) 50 mg PO BID [facility]; Protocol Last Admin: 10/17/21 08:29 Dose: 50 mg Documented By: DANAY Hydromorphone HCl (Hydromorphone Hcl 1 Mg/Ml Syringe) 0.5 mg IVPUSH Q4H PRN; Protocol PRN Reason: Pain, Severe (Pain Scale 7-10) Last Admin: 10/15/21 18:07 Dose: 0.5 mg Documented By: LUIS Ceftriaxone Sodium 1 gm/ (Sodium Chloride) 50 mls @ 100 mls/hr IV Q24H [facility] Last Infusion: 10/17/21 10:39 Dose: 0 mls/hr Documented By: DANAY Ampicillin Sodium 500 mg/ (Sodium Chloride) 50 mls @ 100 mls/hr IV Q6H [facility] Last Infusion: 10/17/21 12:11 Dose: 0 mls/hr Documented By: WALTER Lisinopril (Lisinopril 5 Mg Tablet) 5 mg PO BID [facility]; Protocol Last Admin: 10/17/21 08:30 Dose: 5 mg Documented By: DANAY Magnesium Oxide (Magnesium Oxide 400 Mg Tablet) 400 mg PO BID [facility] Last Admin: 10/17/21 08:30 Dose: 400 mg Documented By: DANAY Melatonin (Melatonin 3 Mg Tablet) 9 mg PO BEDTIME PRN PRN Reason: Insomnia Multivitamins/Vitamin C (Multivitamin Tablet) 1 tab PO DAILY [facility] Last Admin: 10/17/21 08:30 Dose: 1 tab Documented By: DANAY Pharmacy Consult (Consult Rx Perform Med Rec) 1 each MISCELLANE ONCE PRN PRN Reason: Consult order Sodium Bicarbonate (Sodium Bicarbonate 650 Mg Tablet) 650 mg PO BID [facility] Last Admin: 10/17/21 08:30 Dose: 650 mg Documented By: DANAY Sodium Chloride (0.9 % Sodium Chloride Flush 3 Ml Syringe) 3 ml IVFLUSH QSHIFT [facility] Last Admin: 10/17/21 08:30 Dose: 3 ml Documented By: DANAY Vitamin D (Cholecalciferol (Vitamin D3) 25 Mcg Tablet) 50 mcg PO DAILY [facility] Last Admin: 10/17/21 08:29 Dose: 50 mcg Documented By: DANAY Zinc Sulfate (Zinc Sulfate 220 Mg Capsule) 220 mg PO DAILY [facility] Last Admin: 10/17/21 08:30 Dose: 220 mg Documented By: DANAY Labs CBC & Chem 7: 10/17/21 05:41 10/17/21 05:41 Labs: Laboratory Results - last 24 hr 10/17/21 10/17/21 05:41 05:41 MCV 85.8 MCH 28.1 MCHC 32.8 RDW 14.0 Plt Count 213 MPV 11.3 Absolute Nucleated RBC 0.000 Nucleated RBC % (auto) 0.0 Anion Gap 16 Estim Creat Clear Calc 20.1 Estimated GFR 20 Fasting Glucose 160 H Calcium 8.0 L Microbiology Microbiology Results: Microbiology 10/15/21 10:11 Blood Culture - Preliminary Blood - Venous No growth after 48 hours. 10/15/21 10:11 Blood Culture - Preliminary Blood - Venous No growth after 48 hours. 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 Urine culture growing Enterococcus BS Streptococcus continue rocephin, add ampicillin for now pending final sensitivity pain control improving, dilaudid as needed appreciated - recommending conservative treatement with antibiotics for now as improving, to follow-up in the office in 6 weeks history of cva aggrenox, statin htn hydralazine, amldoipnie, coreg, lisinopril ckd IV stable, monitor ptsd duloxetine history of colon ca outpatient follow up dvt prophyalxis hep sq full code reason for continued hospitalization: conitnued iv abx while awaiting cultures as patient high risk for decompensation Quality Stroke Does the patient have a stroke diagnosis?: No VTE Prior VTE?: No VTE Risk Level:: Medical - moderate - high VTE Device Contraindication: Treatment Not Indicated VTE Drug Contraindication: N/A - Med Ordered
--- NOTE | 2021-10-17 15:19 | MHC.CM.PN ---
EMR REVIEWED, PER PHYSICAL THERAPY PT WILL NEED HOME PT, CM MET W/PT AND AT BEDSIDE WHO REPORTED THEY WOULD LIKE THE SAME PHYSICAL THERAPIST ZORAN RIVERA THEY HAD AFTER PT D/C'D FROM [facility], REFERRAL HAS BEEN PLACED TO NA & CM HAS INQUIRED ABOUT ZORAN RIVERA CM AWAITING RESPONSE. PT'S HAS ALSO TEXTED ZORAN TO VERIFY WHICH V[facility] SHE WORKS FOR. ANTIC PT WILL D/C HOME TOMORROW 10/18 W/NEW [facility] FOR HOME PT, FAMILY FOR TRANSPORT
[2021-10-17] MEDS: Atorvastatin Calcium 10 MG TABLET PO (20:20)
[2021-10-17] MEDS: Melatonin 3 MG TABLET 9 MG PO (20:21)
[2021-10-17] MEDS: DULoxetine HCl 30 MG CAPSULE.DR PO (20:21)
[2021-10-18] VITALS: BP 178/72; PULSE 61; RESP 17; TEMP 36.3; O2SAT 94
[2021-10-18] MEDS: Heparin Sodium,Porcine 5,000 UNIT/ML VIAL 5000 UNIT SUBCUT (03:49)
[2021-10-18 04:00] VITALS: BP 179/80; PULSE 64; RESP 17; TEMP 36.7; O2SAT 94
[2021-10-18] MEDS: Ampicillin Sodium 500 MG in 0.9 % Sodium Chloride 50 ML 100 MG IV (05:42)
[2021-10-18 06:29] LABS: Hematocrit 30.8 % (42.0-52.0); Hemoglobin 10.2 g/dl (14.0-18.0); Mean Corpuscular HGB Conc 33.1 g/dl (31.0-36.0); Mean Corpuscular Hemoglobin 27.9 pg (27.0-33.0); Mean Corpuscular Volume 84.4 fL (80.0-98.0); Mean Platelet Volume 10.9 fL (9.4-12.4); Platelet Count 221 X10*3/uL (160-400); Red Blood Count 3.65 X10*6/uL (4.60-5.80); Red Cell Distribution Width 13.7 % (11.0-16.0); White Blood Count 9.3 X10*3/uL (4.8-10.8)
[2021-10-18 07:05] LABS: Anion Gap 18 (12-20); Blood Urea Nitrogen 29 mg/dL (9-16); Calcium 8.2 mg/dL (8.4-10.2); Carbon Dioxide 21 mmol/L (22-29); Chloride 110 mmol/L (96-108); Estimated Glomerular Filt Rate 20; Glucose Random 157 mg/dL (60-115); Potassium 3.7 mmol/L (3.3-5.1); Sodium 145 mmol/L (135-145)
[2021-10-18 07:50] VITALS: BP 182/85; PULSE 59; RESP 14; TEMP 36.8; O2SAT 95
[2021-10-18] MEDS: Calcium Carbonate 750 MG TAB.CHEW 1125 MG PO (08:49)
[2021-10-18] MEDS: Magnesium Oxide 400 MG TABLET PO (08:49)
[2021-10-18] MEDS: Cyanocobalamin (Vitamin B-12) 500 MCG TABLET PO (08:49)
[2021-10-18] MEDS: carvediloL 25 MG TABLET PO (08:50)
[2021-10-18] MEDS: Famotidine 20 MG TABLET 10 MG PO (08:50)
[2021-10-18] MEDS: lisinopriL 5 MG TABLET PO (08:50)
[2021-10-18] MEDS: amLODIPine Besylate 5 MG TABLET PO (08:50)
[2021-10-18] MEDS: Cholecalciferol (Vitamin D3) 25 MCG TABLET 50 MCG PO (08:50)
[2021-10-18] MEDS: Zinc Sulfate 220 MG CAPSULE PO (08:50)
[2021-10-18] MEDS: Docusate Sodium 100 MG CAPSULE PO (08:51)
[2021-10-18] MEDS: hydrALAZINE HCl 50 MG TABLET PO (08:51)
[2021-10-18] MEDS: Ascorbic Acid 500 MG TABLET 1000 MG PO (08:51)
[2021-10-18] MEDS: Sodium Bicarbonate 650 MG TABLET PO (08:51)
[2021-10-18] MEDS: Multivitamin TABLET 1 TAB PO (08:51)
[2021-10-18] MEDS: 0.9 % Sodium Chloride Flush 3 ML SYRINGE IVFLUSH (08:51)
[2021-10-18] MEDS: cefTRIAXone sodium 1 GM in 0.9 % Sodium Chloride 50 ML IV (09:17)
--- NOTE | 2021-10-18 10:32 | PM.DS ---
DS: Providers Provider Date of Service: 10/18/21 Date of admission: 10/15/21 11:06 Primary care physician: Iveth Bryant MD DS: Diagnosis Discharge Diagnosis (1) Hydronephrosis: Status: Acute (2) Hydroureter: Status: Acute (3) Acute pyelonephritis: Status: Acute DS: Summary Hospital Course Hospital Course: Admission note HPI 80M with pmh CVA, HTN, nephrolithiasis, CKD IV, colon ca s/p colostomy, ptsd, presented with left flank pain. pain is 10/10, sharp, similar to previous kidney stones, present for last 2 days ptp. denies fever, chills, sob. in ED us showed unchanged left hydro with old scarring, no obvious stone. wbc elevated 12.8, bacturia and pyuria. Hospital course The patient was admitted as CT scan showed an evidence of left hydronephrosis with suspicion of pyelonephritis. Treated with IV antibiotics of ampicillin and ceftriaxone. Urine culture grew Enterococcus sensitive to ampicillin. Blood cultures remain negative. Evaluated by urologist who recommended outpatient follow-up in 6 weeks. To be discharged home to finish 1 week of amoxicillin. Evaluated by Physical therapy who recommended home VNA. Continue amoxicillin for 4 more days To follow-up with Dr. Kang in the office in 6 weeks drink plenty of water and come back to the hospital for any fever or worsening pain. Time Spent with Patient Time attestation: Total time spent providing and/or coordinating discharge services: Discharge coordination time: Greater than 30 minutes Quality: Safe Use of Opioids Does Pt have an Active Cancer Diagnosis on the Problem List?: No Quality: Stroke Does the patient have a stroke diagnosis?: No Physical Exam Vital Signs: Vital Signs: Last Vital Signs Temp 98.3 F 10/18/21 07:50 Pulse 59 10/18/21 07:50 Resp 14 10/18/21 07:50 BP 182/85 H 10/18/21 07:50 Pulse Ox 95 10/18/21 07:50 O2 Del Method 10/18/21 07:50 BMI result Body Mass Index 24.5 Const: Other: Constitutional : Alert, oriented, not in distress Neck : Normal inspection, Supple Cardiovascular : RRR, no JVP, no lower extremity edema Respiratory : fair bilateral air entry, no crackles, wheezes or rhonchi Gastrointestinal: soft, lax, Normal bowel sounds, Non tender Skin : Warm, Dry Neurological : Alert & oriented x3, No focal deficit , CN 2-12 within normal DS: Data Data Completed and Pending Labs on day of discharge: Laboratory Results - last 24 hr 10/18/21 10/18/21 05:30 05:30 WBC 9.3 RBC 3.65 L Hgb 10.2 L Hct 30.8 L MCV 84.4 MCH 27.9 MCHC 33.1 RDW 13.7 Plt Count 221 MPV 10.9 Absolute Nucleated RBC 0.000 Nucleated RBC % (auto) 0.0 Sodium 145 Potassium 3.7 Chloride 110 H Carbon Dioxide 21 L Anion Gap 18 BUN 29 H Creatinine 3.03 H Estim Creat Clear Calc 20.0 Estimated GFR 20 Random Glucose 157 H Calcium 8.2 L Preliminary micro results at discharge 10/15/21 10:11 Blood Culture - Preliminary Blood - Venous No growth after 48 hours. 10/15/21 10:11 Blood Culture - Preliminary Blood - Venous No growth after [address] scan - abdomen: Radiologist's impression: ITS Impressions Renal Ultrasound 10/15/21 08:33 IMPRESSION: 1. Moderate left hydronephrosis appears similar if not mildly decreased compared to the most recent CT scan. Please refer to the report from the CT study for more detailed findings. Discharge Plan Discharge Patient Disposition: Home Health Service Discharge Diagnosis: Pyelonephritis Hydroureter Referrals: Iveth Bryant MD [Primary Care Provider] - 1 Week Discharge Medications: New amoxicillin 500 mg capsule 500 mg PO Q8H Qty: 12 0RF Continued aspirin-dipyridamole 25-200 mg Capsule, Er Multiphase 12 Hr 1 cap PO BID atorvastatin 10 mg Tablet 10 mg PO BEDTIME amlodipine 5 mg tablet 1 tab PO BID docusate sodium [Colace] 100 mg capsule 100 mg PO DAILY coenzyme Q10 [CoQ-10] 100 mg Capsule 300 mg PO DAILY multivitamin Tablet 1 tab PO DAILY acetaminophen 325 mg Tablet 650 mg PO BEDTIME PRN (Reason: Pain) magnesium oxide 420 mg tablet 1 tab PO BID famotidine 20 mg Tablet 20 mg PO BID ascorbic acid (vitamin C) [Vitamin C] 500 mg Tablet 1,000 mg PO BID calcium carbonate 650 mg calcium (1,625 mg) Tablet 1,300 mg PO BID hydralazine 50 mg Tablet 50 mg PO BID ondansetron 4 mg Tablet,Disintegrating 4 mg PO Q6H PRN (Reason: Nausea) duloxetine 30 mg capsule,delayed release(DR/EC) 1 cap PO BEDTIME cholecalciferol (vitamin D3) [Vitamin D3] 50 mcg (2,000 unit) Capsule 50 mcg PO DAILY melatonin 5 mg Capsule 10 mg PO BEDTIME PRN (Reason: Insomnia) B12 Active 1,000 mcg Tablet,Chewable 500 mcg PO DAILY sodium bicarbonate 650 mg tablet 1 tab PO BID zinc sulfate 50 mg zinc (220 mg) capsule 1 cap PO DAILY potassium chloride 20 mEq tablet,ER particles/crystals 1 tab PO DAILY carvedilol 25 mg tablet 1 tab PO BID lisinopril 5 mg tablet 1 tab PO BID Lactobacillus acidophilus 1 billion cell Tablet 2,000 mmu cells PO DAILY Discharge Orders: Discharge Order (Routine); Ordered 10/18/21 Ordered By: Loraine Landin Diet: Advance to usual diet Activity on Discharge: As tolerated Stand Alone Forms: Patient Portal Discharge page Care Plan Goals: Read below Health Concerns: Read below Plan of Treatment: Read below Assessment: You were admitted to the hospital for evaluation of left flank pain. Found to have an evidence of urine infection associated with hydronephrosis. Evaluated by urologist who recommended outpatient follow-up in 6 weeks after finishing the treatment. Urine culture grew Enterococcus which was treated with IV antibiotics of ampicillin. Continue amoxicillin for 4 more days To follow-up with Dr. Kang in the office in 6 weeks drink plenty of water and come back to the hospital for any fever or worsening pain.
[2021-10-18 11:21] VITALS: BP 188/84; PULSE 65; RESP 13; TEMP 36.6; O2SAT 94
--- NOTE | 2021-10-18 11:23 | W.MHC.F2F ---
Service Date Service Date: 10/18/21 Encounter Date of encounter: 10/18/21 Reasons for Services Signs and symptoms assessed: Physical deconditioning Reason for physical therapy: home safety and mobility and therapeutic exercises Homebound: Leaving the home is medically contraindicated at this time without the asist of a device and/or another person due th the listed conditions above and below. Reason homebound: unsteady gait / fall risk Certification: Based on the above findings, I certify that this patient is confined to the home and needs intermittent shelter care, physical therapy and/or speech therapy, or continues to need occupational therapy. The patient is under my care, and I have initiated the establishment of the plan of care. The patient will be followed by a physician who will periodically review the plan of care.
--- NOTE | 2021-10-18 12:08 | MHC.CM.PN ---
PATIENT HAS BEEN MEDICALLY CLEARED FOR DISCHARGE TODAY; DISCHARGE DISPOSITION IS HOME WITH [facility]. 2ND IMM NOT REQUIRED. PT WILL ARRANGE TRANSPORTATION.
== END 2021-10-18 13:31 | disposition home health service (06) | DRG 690 ==
LOC: HO.ED 10:09 → HO.EDOVER 11:14 → HO.S3 13:58
PROVIDERS: Admitting Provider Internal Medicine; Emergency Provider Emergency Medicine; PCP Internal Medicine; Visit Provider Student in an Organized Health Care Education/Training Program
DX: N13.6 Pyonephrosis (principal); I12.9 Hypertensive chronic kidney disease with stage 1 through stage 4 chronic kidney disease, or unspecified chronic kidney disease; N18.4 Chronic kidney disease, stage 4 (severe); F43.10 Post-traumatic stress disorder, unspecified; Z20.822 Contact with and (suspected) exposure to COVID-19; Z93.3 Colostomy status; Z87.442 Personal history of urinary calculi; Z85.038 Personal history of other malignant neoplasm of large intestine; Z86.73 Personal history of transient ischemic attack (TIA), and cerebral infarction without residual deficits; Z88.5 Allergy status to narcotic agent; Z88.6 Allergy status to analgesic agent; Z79.899 Other long term (current) drug therapy
CPT/HCPCS: 36415; 76775; 80048; 81001; 83605; 85025; 85027; 87040; 87086; 87088; 87186; 87635; 97116; 97161; 97530; 99285; J0290; J0696; J1170; J2405

== ENCOUNTER 2021-10-29 15:52 | Inpatient (IN) | payer OTHER, MEDICARE, SELFPAY ==
--- NOTE | ~2021-10-29 | CT_ITS ---
EXAMINATION: CT ABDOMEN AND PELVIS WITHOUT CONTRAST CLINICAL INFORMATION: Kidney stones COMPARISON: None TECHNIQUE: Multidetector volumetric imaging was performed from the superior aspect of the liver through the pubic symphysis. Sagittal and coronal reformatted images were obtained on the technologist's workstation. This CT examination was performed using dose optimization techniques as appropriate, variously including the following: *Automated exposure control *Adjustment of mA and/or kV according to patient size (this includes techniques or standardized protocols for targeted exams where dose is matched to indication/reason for exam; i.e. extremities or head) *Use of iterative reconstruction technique DLP: 686 mGy-cm FINDINGS: LUNG BASES: Bibasilar scarring is present. Coronary calcifications are seen. LIVER, GALLBLADDER, AND BILIARY TREE: The liver is normal in size, shape, and attenuation. At least 3 water density cysts are present in the liver. No worrisome solid focal hepatic lesion or biliary ductal dilatation is present. The gallbladder is distended but otherwise unremarkable with no evidence of radiopaque gallstones, gallbladder wall thickening, or obvious pericholecystic inflammatory changes. PANCREAS: Unremarkable. SPLEEN: Unremarkable. ADRENAL GLANDS: The right adrenal gland is thickened. The left is not visualized with certainty. Multiple surgical in the left adrenal bed. KIDNEYS AND URETERS: The right kidney is unremarkable. On the left, at least 3 nonobstructing calculi are present and unchanged. Marked pelvocaliectasis with a dilated left renal pelvis and dilated ureter is seen down into the pelvis. An obstructing stone is not seen. Conglomerate bowel loops and postsurgical changes are present in the stricture could be present. This finding is unchanged when compared to the prior study. BLADDER: Unremarkable. GASTROINTESTINAL TRACT: Patient status post surgical removal of the rectum and sigmoid with a left lower quadrant colostomy. Multiple surgical clips are present rectal fossa with soft tissue density surrounding which is unchanged when compared to the prior study. Again seen is a enteric anastomosis in the right lower quadrant. Please correlate with surgical history. The appendix appears to still be present. ABDOMINAL WALL: There are bilateral inguinal hernias seen containing nonobstructed bowel. Slightly larger than noted on 10/04/2021. LYMPH NODES: No retroperitoneal lymphadenopathy. VASCULAR: Aorto iliac calcifications and ectasia is noted. Gross aneurysm is not seen. PELVIC VISCERA: Scarring is present in the prerectal space. The prostate appears unremarkable. No free pelvic fluid. OSSEOUS STRUCTURES: Degenerative changes are present in the spine with mild grade 1 anterolisthesis L4 upon L5. No bony destructive lesions CT/CT abdomen pelvis wo IV con IMPRESSION: There are nonobstructing left renal calculi with chronic left-sided hydronephrosis with dilated ureter which does not appear to be secondary to calculus disease, but probable pelvic scarring from prior surgery and adhesions. Incidental findings include coronary artery calcifications benign hepatic cysts, stable right adrenal gland thickening, partial left-sided colectomy with presacral scarring and postsurgical changes, enteric anastomosis in the right abdomen and slightly more prominent bilateral inguinal hernias Fleischner guidelines were followed.
--- NOTE | ~2021-10-29 | FL_ITS ---
EXAMINATION: Intraoperative fluoroscopy CLINICAL INFORMATION: Left ureteral stent placement COMPARISON: CT abdomen pelvis October 29, 2021 TECHNIQUE: Intraoperative fluoroscopy was provided for use by Dr. Kang. A total of 2 images were saved to PACS. A radiologist was not present during imaging. Today's dictation is only for administrative purposes to document intraoperative fluoroscopic usage. TOTAL FLUOROSCOPIC TIME: 25 seconds FL/FL guidance in OR FINDINGS~\^^ Intraoperative fluoroscopy provided for use by Dr. Kang. Please see operative note for detailed findings.
[2021-10-29 16:04] VITALS: BP 197/78; BP 200/90; PULSE 68; PULSE 86; RESP 18; TEMP 36.9; O2SAT 96; O2SAT 98; BMI 22.2
--- NOTE | 2021-10-29 16:18 | ECG_ITS ---
Test Reason : MED CLEARANCE Blood Pressure : / mmHG Vent. Rate : 067 BPM Atrial Rate : 067 BPM P-R Int : 160 ms QRS Dur : 144 ms QT Int : 464 ms P-R-T Axes : 059 -69 042 degrees QTc Int : 490 ms Sinus rhythm with Premature atrial complexes Right bundle branch block Left anterior fascicular block Bifascicular block Abnormal ECG When compared with ECG of 04-OCT-2021 20:38, Premature atrial complexes are now Present Right bundle branch block has replaced Non-specific intra-ventricular conduction block Referred By: Marlys Stanton Electronically Signed By:COLLINS PEDROZA
--- NOTE | 2021-10-29 16:38 | ED_ITS ---
HPI - Psych General Chief Complaint: Psychiatric Symptoms Stated Complaint: AGGRESSIVE BEHAVIOR,PTSD Time Seen by Provider: 10/29/21 16:07 Source: patient Mode of arrival: EMS Limitations: no limitations History of Present Illness HPI Narrative: Patient presents to the emergency department from home via EMS. Patient's contacted EMS due to patient's agitation. Patient states that he has a history of PTSD, stating his should be well aware of this is she also has PTSD and served in . Patient states that he at times has outbursts, that caused him to become agitated in throw things. Patient's did report to EMS that he had thrown objects around the home and she was unable to deescalate him. When asked, patient has no complaints at this time. He denies any suicidal or homicidal ideations. He states that he would like to return home, as needs things typically happen. Of note patient was recently hospitalized for pyelonephritis and hydronephrosis, patient states that his flank pain has actually significantly improved, does not feel as though he has acute problem high kidney stone since he has experienced these many times in his life. States he is still taking amoxicillin as prescribed. Denies fevers, chills, nausea, vomiting, dysuria, urinary frequency or retention, hematuria, abdominal pain. Related Data Home Medications Medication Instructions Recorded Confirmed acetaminophen 325 mg tablet 650 mg PO BEDTIME PRN Pain 08/26/20 10/15/21 amlodipine 5 mg tablet 1 tab PO BID 08/26/20 10/15/21 ascorbic acid (vitamin C) 500 mg 1,000 mg PO BID 08/26/20 10/15/21 tablet (Vitamin C) aspirin 25 mg-dipyridamole 200 mg 1 cap PO BID 08/26/20 10/15/21 capsule,ext.release 12 hr multiphase atorvastatin 10 mg tablet 10 mg PO BEDTIME 08/26/20 10/15/21 calcium carbonate 650 mg calcium 1,300 mg PO BID 08/26/20 10/15/21 (1,625 mg) tablet cholecalciferol (vitamin D3) 50 50 mcg PO DAILY 08/26/20 10/15/21 mcg (2,000 unit) capsule (Vitamin D3) coenzyme Q10 100 mg capsule 300 mg PO DAILY 08/26/20 10/15/21 (CoQ-10) docusate sodium 100 mg capsule 100 mg PO DAILY 08/26/20 10/15/21 (Colace) duloxetine 30 mg capsule,delayed 1 cap PO BEDTIME 08/26/20 10/15/21 release famotidine 20 mg tablet 20 mg PO BID 08/26/20 10/15/21 hydralazine 50 mg tablet 50 mg PO BID 08/26/20 10/15/21 magnesium oxide 420 mg tablet 1 tab PO BID 08/26/20 10/15/21 mecobalamin (vitamin B12) 1,000 500 mcg PO DAILY 08/26/20 10/15/21 mcg chewable tablet (B12 Active) melatonin 5 mg capsule 10 mg PO BEDTIME PRN Insomnia 08/26/20 10/15/21 multivitamin 1 tab PO DAILY 08/26/20 10/15/21 ondansetron 4 mg disintegrating 4 mg PO Q6H PRN Nausea 08/26/20 10/15/21 tablet potassium chloride 20 mEq 1 tab PO DAILY 10/04/21 10/15/21 tablet,extended release(part/cryst) sodium bicarbonate 650 mg tablet 1 tab PO BID 10/04/21 10/15/21 zinc sulfate 50 mg zinc (220 mg) 1 cap PO DAILY 10/04/21 10/15/21 capsule Lactobacillus acidophilus 1 2,000 mmu cells PO DAILY 10/15/21 10/15/21 billion cell tablet carvedilol 25 mg tablet 1 tab PO BID 10/15/21 10/15/21 lisinopril 5 mg tablet 1 tab PO BID 10/15/21 10/15/21 Previous Rx's Medication Instructions Recorded amoxicillin 500 mg capsule 500 mg PO Q8H #12 caps 10/25/21 tramadol 50 mg tablet 50 mg PO Q8H PRN pain #15 tabs 10/25/21 Allergies Allergy/AdvReac Type Severity Reaction Status Date / Time erythromycin base Allergy Severe TREMORS Verified 08/26/20 12:00 [ERYTHROMYCIN BASE] morphine [MORPHINE] Allergy Severe HALLUCINATI Verified 08/26/20 12:00 ONS acetaminophen [From Percocet] AdvReac Intermediate agitation Verified 10/15/21 10:59 oxycodone [From Percocet] AdvReac Intermediate agitation Verified 10/15/21 10:59 prochlorperazine AdvReac dystonia Verified 10/15/21 10:59 [From Compazine] Review of Systems Review of Systems: Constitutional : No Fever, No Chills ENT/Mouth : No Ear Pain, No Nasal Congestion, No sore throat Eyes: No Eye Pain, No Swelling, No Redness Cardiovascular : No Chest Pain, No SOB Respiratory : No Cough, No Sputum, No Dyspnea Gastrointestinal : No Nausea, No Vomiting, No Diarrhea, No Hematochezia, No Melena Genitourinary : No Dysuria, No Urinary Frequency, No Hematuria Musculoskeletal : No Myalgias Skin : No Skin Lesions, No rash Neuro : No Weakness, No Numbness, No Paresthesias, No Dizziness, No Headache Psych : positive Anxiety, positive agitation, no Depression, no SI/HI Heme/Lymph: No Lymphadenopathy Endocrine : No Polyuria, No Polydipsia Yes all other systems are reviewed and are negative [facility] Past Medical History Attestation statement: The following information was validated with the patient. Source: old records reviewed Medical History Cancer of kidney Colon cancer Colostomy in place Diabetes type 2, controlled High cholesterol HTN (hypertension) Hydronephrosis Hydroureter Kidney stone PTSD (post-traumatic stress disorder) Stroke Family History Family History Father Stroke Social History Social History Household Members: Spouse Housing: House Do you presently have visiting nurse or other home services: No Alcohol intake: never Patient Tobacco Use Status: Never used Tobacco Advance Directives: No Advance Directives Information Provided: No service: Yes Current occupational status: retired Physical Exam Vital Signs: Vital Signs: Last Vital Signs Temp 98.5 F 10/29/21 16:04 Pulse 68 10/29/21 16:04 Resp 18 10/29/21 16:04 BP 197/78 H 10/29/21 16:04 Pulse Ox 96 10/29/21 16:04 O2 Del Method 10/29/21 16:04 BMI result Body Mass Index 22.2 Appearance: Alert.?Oriented to person, place and time. No acute distress.?Normal affect. Eyes: Pupils equal, round and reactive to light.? ENT: Pharynx normal.?? Neck: Normal inspection.? Neck supple.?? CVS: Heart sounds normal. Normal heart rate and rhythm.? Pulses normal.?? Respiratory: No respiratory distress.? Lung sounds clear to auscultation bilaterally?? Abdomen: Soft and non-tender. Normoactive bowel sounds. No CVA tenderness Skin: Skin warm and dry.? Normal skin color.? Extremities: No lower extremity edema.? Neuro: Moves all extremities spontaneously. Sensation intact bilaterally. CN II- XII intact. No focal neuro deficits. Ambulates with normal steady gait. Course Course Course Narrative: Patient is an 80-year-old male with a past medical history of PTSD, diabetes, nephrolithiasis, hyperlipidemia, hypertension, history of colon cancer, CVA. Presents emergency department for agitation by his account related to his PTSD. His contacted EMS. Patient was recently admitted to the hospital 10/15/2021- 10/18/2021 for acute pyelonephritis and hydronephrosis with urine cultures sensitive to ampicillin, he was discharged home with 1 week of amoxicillin and visiting nurse services. Patient at this time with no physical complaints. Reports improvement in his pain that he presented to the emergency department with previously. Patient citing that his simply needs to understand that he has these outbursts are a natural part of his PTSD. He adamantly denies any suicidal or homicidal ideations. He speaking clear full sentences, not appear to have any impaired mental status or decision making abilities at this time. Initially had elevated blood pressure of 197/78, otherwise stable vital signs, will repeat blood pressure for further evaluation. Will obtain basic labs, EKG per medical clearance, and urinalysis to exclude behaviors related to metabolic encephalopathy secondary to a worsening infectious process, though I have a low suspicion for this at this time. He is afebrile without tachycardia, and physical exam is benign. Will refer to [facility] for evaluation, although at this time do not see any reason to hold the patient here should he request to leave, he did not present on a Section 12. Reevaluation(s) Reevaluation #1: EKG reveals sinus rhythm with PACs, presence of bifascicular block seen on prior EKGs upon review, no acute ischemic findings. Labs and urinalysis are pending at this time. Patient signed out to Lyly Clay NP pending labs, urinalysis, and referral to [facility] for agitation/outbursts secondary to PTSD patient's report. Time: 17:44 [facility] - Psych Medical Records Attestation: I reviewed the patient's medical records. Lab Data Attestation: I reviewed the patient's lab results. ECG Data Attestation: I personally reviewed and interpreted this ECG as follows: ECG interpretation date: 10/29/21 Prior ECG tracings: available for review Interpretation: Rate: 67 Rhythm:? Sinus rhythm with PACs and bifascicular block. Normal P waves.? Normal ZENY.?? Normal QRS complex.?? ST T wave :??No ST elevation, no ST depression, no T-wave inversion qTC: 490 prior studies: September 2021? The study has been interpreted contemporaneously by me. Discharge Plan Discharge Clinical Impression: Agitation, Chronic post-traumatic stress disorder (PTSD) Patient Disposition: Still a Patient Prescriptions: No Action amoxicillin 500 mg capsule 500 mg PO Q8H Qty: 12 0RF tramadol 50 mg tablet 50 mg PO Q8H PRN (Reason: pain) Qty: 15 0RF aspirin-dipyridamole 25-200 mg Capsule, Er Multiphase 12 Hr 1 cap PO BID atorvastatin 10 mg Tablet 10 mg PO BEDTIME amlodipine 5 mg tablet 1 tab PO BID docusate sodium [Colace] 100 mg capsule 100 mg PO DAILY coenzyme Q10 [CoQ-10] 100 mg Capsule 300 mg PO DAILY multivitamin Tablet 1 tab PO DAILY acetaminophen 325 mg Tablet 650 mg PO BEDTIME PRN (Reason: Pain) magnesium oxide 420 mg tablet 1 tab PO BID famotidine 20 mg Tablet 20 mg PO BID ascorbic acid (vitamin C) [Vitamin C] 500 mg Tablet 1,000 mg PO BID calcium carbonate 650 mg calcium (1,625 mg) Tablet 1,300 mg PO BID hydralazine 50 mg Tablet 50 mg PO BID ondansetron 4 mg Tablet,Disintegrating 4 mg PO Q6H PRN (Reason: Nausea) duloxetine 30 mg capsule,delayed release(DR/EC) 1 cap PO BEDTIME cholecalciferol (vitamin D3) [Vitamin D3] 50 mcg (2,000 unit) Capsule 50 mcg PO DAILY melatonin 5 mg Capsule 10 mg PO BEDTIME PRN (Reason: Insomnia) B12 Active 1,000 mcg Tablet,Chewable 500 mcg PO DAILY sodium bicarbonate 650 mg tablet 1 tab PO BID zinc sulfate 50 mg zinc (220 mg) capsule 1 cap PO DAILY potassium chloride 20 mEq tablet,ER particles/crystals 1 tab PO DAILY carvedilol 25 mg tablet 1 tab PO BID lisinopril 5 mg tablet 1 tab PO BID Lactobacillus acidophilus 1 billion cell Tablet 2,000 mmu cells PO DAILY
[2021-10-29 18:26] LABS: MANUAL DIFF FLAG NO
[2021-10-29 18:35] LABS: Basophils Absolute Auto 0.1 X10*3/uL (0.0-0.2); Basophils Percent Auto 0.8 % (0-2); Eosinophils Absolute Auto 0.2 X10*3/uL (0.0-0.4); Eosinophils Percent Auto 1.8 % (0-4); Hematocrit 36.6 % (42.0-52.0); Hemoglobin 11.7 g/dl (14.0-18.0); Imm Gran Abs Auto 0.03 X10*3/uL (0.00-0.03); Imm Gran Pct Auto 0.3 % (0.0-0.4); Lymphocytes Absolute Auto 2.8 X10*3/uL (1.2-4.9); Lymphocytes Percent Auto 30.4 % (20-40); Mean Corpuscular Hemoglobin 27.5 pg (27.0-33.0); Mean Corpuscular Volume 86.1 fL (80.0-98.0); Mean Platelet Volume 10.5 fL (9.4-12.4); Monocytes Absolute Auto 0.7 X10*3/uL (0.1-1.2); Monocytes Percent Auto 7.1 % (2-11); Neutrophils Absolute Auto 5.4 x10*3/uL (2.0-8.3); Neutrophils Percent Auto 59.6 % (45-73); Platelet Count 307 X10*3/uL (160-400); Red Blood Count 4.25 X10*6/uL (4.60-5.80); Red Cell Distribution Width 14.4 % (11.0-16.0); White Blood Count 9.1 X10*3/uL (4.8-10.8)
[2021-10-29 18:44] LABS: COVID-19 Test Negative (Negative)
[2021-10-29 18:45] LABS: Alanine Aminotransferase 17 U/L (0-40); Albumin Level 4.1 g/dL (3.5-5.0); Alkaline Phosphatase 114 U/L (39-117); Anion Gap 19 (12-20); Aspartate Amino Transferase 16 U/L (5-37); Bilirubin Total 0.4 mg/dL (0.0-1.0); Blood Urea Nitrogen 38 mg/dL (9-16); Calcium 9.5 mg/dL (8.4-10.2); Carbon Dioxide 20 mmol/L (22-29); Chloride 108 mmol/L (96-108); Creatinine Clr Calc Pharmacy 16.8; Estimated Glomerular Filt Rate 18; Glucose Random 190 mg/dL (60-115); Potassium 4.8 mmol/L (3.3-5.1); Sodium 142 mmol/L (135-145); Total Protein 7.6 g/dL (6.5-8.0)
[2021-10-29 18:58] LABS: Appearance Urine Clear; Color Urine Yellow; Glucose Urine UA Negative (Negative); Leukocyte Esterase Urine Trace (Negative); Nitrite Urine Negative (Negative); PH 5.5 (5.0-9.0); UMIC TRIGGER UACC YES; Urine Blood Large (3+) (Negative); Urine Ketones Negative (Negative); Urine Protein 300 (3+) mg/dL (Neg-Trace)
[2021-10-29 19:05] LABS: Bacteria Urine None Seen (None Seen); Hyaline Casts Urine 0-2 /LPF (0-2); RBC Urine >20 /HPF (0-2); Squamous Epithelial Cell Urine 0-2 /HPF (0-2); UACC Culture Trigger YES
--- NOTE | 2021-10-29 19:36 | PC.NURSE ---
pt moved from pod to 22h, patient awake/alert- pt states I dont know my name anymore pt denies pain/discomfort, awaiting re-eval by provider, sitter at bedside, pt denying si/hi, will continue to monitor
--- NOTE | 2021-10-29 20:12 | MHC.CARE ---
Plan is for pt to be medically admitted. Please consult CARE Team for assessment once medically cleared for d/c or admission to psych.
[2021-10-29 20:19] VITALS: BP 194/88; PULSE 69; RESP 18; TEMP 36.7; O2SAT 97
[2021-10-29] MEDS: OLANZapine 10 MG VIAL 5 MG IM (20:25)
--- NOTE | 2021-10-29 20:33 | PC.NURSE ---
patient alert, pt yelling, confused, agitated and attempting to hit staff, pt refusing iv despite attempting to explain he needed medication, provider aware of patients behavior and ordered pt to be given IM zyprexa, pt was medicated per order, will continue to monitor.
--- NOTE | 2021-10-29 20:41 | P.HPHOSP_ITS ---
History of Present Illness Date of Service: 10/29/21 Chief Complaint: agitation This is a 80-year-old male with a pertinent history of posttraumatic stress disorder, chronic kidney disease stage 4,, essential hypertension, history of colon cancer, CVA, history of recurrent nephrolithiasis who was brought to the emergency department by his due to agitation. Patient is a poor historian and does not know why he is in the hospital. He keeps on repeating that he has PTSD and he served in the [place] and his does not believe him. He mentions that he has occasional outbursts with shouting episodes and his does not understand him. He stated that his was the world's worst bitch . As per EMS report patient had thrown objects around the home. At the time of my evaluation, patient has no complaints. He keeps on repeating himself and is disoriented to time and place. Nursing staff reported that patient was shouting in the hallways and trying to hit bystanders. Of note patient was recently admitted and discharged on 10/18 with acute pyelonephritis with hydronephrosis. He does have a history of recurrent kidney stones. Patient was discharged with amoxicillin for Enterococcus faecalis. Review of Systems Review of Systems: Unable to obtain [facility] Medical History Cancer of kidney Colon cancer Colostomy in place Diabetes type 2, controlled High cholesterol HTN (hypertension) Hydronephrosis Hydroureter Kidney stone PTSD (post-traumatic stress disorder) Stroke Family History Father Stroke Social History Household Members: Spouse Housing: House Do you presently have visiting nurse or other home services: No Alcohol intake: never Patient Tobacco Use Status: Never used Tobacco Advance Directives: No Advance Directives Information Provided: No service: Yes Current occupational status: retired Meds Allergies Allergy/AdvReac Type Severity Reaction Status Date / Time erythromycin base Allergy Severe TREMORS Verified 08/26/20 12:00 [ERYTHROMYCIN BASE] morphine [MORPHINE] Allergy Severe HALLUCINATI Verified 08/26/20 12:00 ONS acetaminophen [From Percocet] AdvReac Intermediate agitation Verified 10/15/21 10:59 oxycodone [From Percocet] AdvReac Intermediate agitation Verified 10/15/21 10:59 prochlorperazine AdvReac dystonia Verified 10/15/21 10:59 [From Compazine] Active Medications: Current Medications Acetaminophen (Acetaminophen 325 Mg Tablet) 650 mg PO Q6H PRN PRN Reason: Pain, Mild (Pain Scale 1-3) Enoxaparin Sodium (Enoxaparin Sodium 30 Mg/0.3 Ml Syringe) 30 mg SUBCUT Q24H [facility] Sodium Chloride (Ns) 1,000 mls @ 999 mls/hr IVCONT .Q1H1M CARMELINA Stop: 10/29/21 21:00 Sodium Chloride (Ns) 1,000 mls @ 200 mls/hr IV .Q5H ONE Stop: 10/30/21 01:24 Ondansetron HCl (Ondansetron Hcl 4 Mg/2 Ml Vial) 4 mg IVPUSH Q8H PRN PRN Reason: Nausea and Vomiting Pharmacy Consult (Consult Rx Perform Med Rec) 1 each MISCELLANE ONCE PRN PRN Reason: Consult order Senna (Sennosides 8.6 Mg Tablet) 17.2 mg PO BEDTIME PRN PRN Reason: Constipation Sodium Chloride (0.9 % Sodium Chloride Flush 3 Ml Syringe) 3 ml IVFLUSH QSHIFT [facility] Home Medications Medication Instructions Recorded Confirmed Last Taken Type acetaminophen 325 mg tablet 650 mg PO BEDTIME PRN Pain 08/26/20 10/15/21 10/14/21 History amlodipine 5 mg tablet 1 tab PO BID 08/26/20 10/15/21 10/14/21 History ascorbic acid (vitamin C) 500 mg 1,000 mg PO BID 08/26/20 10/15/21 10/14/21 History tablet (Vitamin C) aspirin 25 mg-dipyridamole 200 mg 1 cap PO BID 08/26/20 10/15/21 10/14/21 History capsule,ext.release 12 hr multiphase atorvastatin 10 mg tablet 10 mg PO BEDTIME 08/26/20 10/15/21 10/14/21 History calcium carbonate 650 mg calcium 1,300 mg PO BID 08/26/20 10/15/21 10/14/21 History (1,625 mg) tablet cholecalciferol (vitamin D3) 50 50 mcg PO DAILY 08/26/20 10/15/21 10/14/21 History mcg (2,000 unit) capsule (Vitamin D3) coenzyme Q10 100 mg capsule 300 mg PO DAILY 08/26/20 10/15/21 10/14/21 History (CoQ-10) docusate sodium 100 mg capsule 100 mg PO DAILY 08/26/20 10/15/21 10/14/21 History (Colace) duloxetine 30 mg capsule,delayed 1 cap PO BEDTIME 08/26/20 10/15/21 10/14/21 History release famotidine 20 mg tablet 20 mg PO BID 08/26/20 10/15/21 10/14/21 History hydralazine 50 mg tablet 50 mg PO BID 08/26/20 10/15/21 10/14/21 History magnesium oxide 420 mg tablet 1 tab PO BID 08/26/20 10/15/21 10/14/21 History mecobalamin (vitamin B12) 1,000 500 mcg PO DAILY 08/26/20 10/15/21 10/14/21 History mcg chewable tablet (B12 Active) melatonin 5 mg capsule 10 mg PO BEDTIME PRN Insomnia 08/26/20 10/15/21 10/14/21 History multivitamin 1 tab PO DAILY 08/26/20 10/15/21 10/14/21 History ondansetron 4 mg disintegrating 4 mg PO Q6H PRN Nausea 08/26/20 10/15/2109/11 History tablet potassium chloride 20 mEq 1 tab PO DAILY 10/04/21 10/15/21 10/14/21 History tablet,extended release(part/cryst) sodium bicarbonate 650 mg tablet 1 tab PO BID 10/04/21 10/15/21 10/14/21 History zinc sulfate 50 mg zinc (220 mg) 1 cap PO DAILY 10/04/21 10/15/21 10/14/21 History capsule Lactobacillus acidophilus 1 2,000 mmu cells PO DAILY 10/15/21 10/15/21 10/14/21 History billion cell tablet carvedilol 25 mg tablet 1 tab PO BID 10/15/21 10/15/21 10/14/21 History lisinopril 5 mg tablet 1 tab PO BID 10/15/21 10/15/21 10/14/21 History cyanocobalamin (vitamin B-12) 500 500 mcg PO DAILY 10/29/21 10/29/21 Unknown History mcg tablet lisinopril 5 mg tablet 5 mg PO BID 10/29/21 10/29/21 Unknown History Physical Exam Vital Signs and Narrative: Vital Signs: Last Vital Signs Temp 98.1 F 10/29/21 20:19 Pulse 69 10/29/21 20:19 Resp 18 10/29/21 20:19 BP 194/88 H 10/29/21 20:19 Pulse Ox 97 10/29/21 20:19 O2 Del Method 10/29/21 20:19 BMI result Body Mass Index 22.2 Elderly male lying in bed, agitated Decreased breath sounds at bases, no wheezing or crackles appreciated S1-S2 heard, no murmurs appreciated Unable to perform dominant exam is patient is agitated No pedal edema He is awake, alert and oriented to self but disoriented to time, place and person Psych: Agitated Results Labs CBC and Chem 7: 10/29/21 18:19 10/29/21 18:19 Labs: Laboratory Results - last 24 hr 10/29/21 10/29/21 10/29/21 18:19 18:19 18:19 MCV 86.1 MCH 27.5 MCHC 32.0 RDW 14.4 Plt Count 307 D MPV 10.5 Immature Gran % (Auto) 0.3 Neut % (Auto) 59.6 Lymph % (Auto) 30.4 [place] % (Auto) 7.1 Eos % (Auto) 1.8 Baso % (Auto) 0.8 Lymph # (Auto) 2.8 [place] # (Auto) 0.7 Eos # (Auto) 0.2 Baso # (Auto) 0.1 Abs Immat Gran (auto) 0.03 Absolute Neuts (auto) 5.4 Absolute Nucleated RBC 0.000 Nucleated RBC % (auto) 0.0 Anion Gap 19 Estim Creat Clear Calc 16.8 Estimated GFR 18 Random Glucose 190 H Calcium 9.5 D Total Bilirubin 0.4 AST 16 ALT 17 Alkaline Phosphatase 114 Total Protein 7.6 Albumin 4.1 Urine Color Urine Appearance Urine pH Ur Specific [place] Urine Protein Urine Glucose (UA) Urine Ketones Urine Blood Urine Nitrite Ur Leukocyte Esterase Urine RBC Urine WBC Ur Squamous Epith Cells Urine Bacteria Hyaline Casts COVID-19 (AMEYA) Negative COVID-19 Clin Com See Note 10/29/21 18:42 MCV MCH MCHC RDW Plt Count MPV Immature Gran % (Auto) Neut % (Auto) Lymph % (Auto) [place] % (Auto) Eos % (Auto) Baso % (Auto) Lymph # (Auto) [place] # (Auto) Eos # (Auto) Baso # (Auto) Abs Immat Gran (auto) Absolute Neuts (auto) Absolute Nucleated RBC Nucleated RBC % (auto) Anion Gap Estim Creat Clear Calc Estimated GFR Random Glucose Calcium Total Bilirubin AST ALT Alkaline Phosphatase Total Protein Albumin Urine Color Yellow Urine Appearance Clear Urine pH 5.5 Ur Specific [place] 1.020 Urine Protein 300 (3+) H Urine Glucose (UA) Negative Urine Ketones Negative Urine Blood Large (3+) H Urine Nitrite Negative Ur Leukocyte Esterase Trace H Urine RBC >20 H Urine WBC 6-10 H Ur Squamous Epith Cells 0-2 Urine Bacteria None Seen Hyaline Casts 0-2 COVID-19 (AMEYA) COVID-19 Clin Com Assessment and Plan (1) ESTUARDO (acute kidney injury): Status: Acute (2) Hematuria: Status: Acute (3) Agitation: Status: Acute (4) Pyuria: Status: Acute (5) Chronic post-traumatic stress disorder (PTSD): Status: Acute Plan This is a 80-year-old male with a pertinent history of posttraumatic stress diso rder, chronic kidney disease stage 4,, essential hypertension, history of colon cancer, CVA, history of recurrent nephrolithiasis who was brought to the emergency department by his due to agitation, being admitted for evaluation and management of acute kidney injury #. Acute kidney injury on chronic kidney disease stage 4 #. Hematuria with pyuria -unclear etiology. Will resuscitate with IV crystalloids and monitor creatinine and urine output. Urine sodium and creatinine and pending. Patient recently completed antibiotics for Enterococcus faecalis in the urine. Urine with trace leukocyte esterase, negative nitrites and minimal wbc's in the urine, will hold off to treat at this time. Although patient is poor historian, no signs of infection or sepsis. Does have hematuria and history of recurrent nephrolithiasis, obtaining abdominal pelvis CT scan to rule out a stone. #. Agitation in a patient with posttraumatic stress disorder -unclear etiology. Obtaining CT abdominal pelvis to rule out a stone and to look at bowel gas pattern to rule out constipation that may be triggering his agitation. Unclear if this is baseline, unable to contact at this time. Psych eval pending. Will continue home duloxetine. Use Zyprexa p.r.n. for agitation and avoid Haldol due to QT prolongation. #. Hypertensive urgency in a patient with Essential hypertension -likely due to agitation. Continue home medications, hydralazine, amlodipine, coreg. Holding lisinopril the setting of ESTUARDO #. History of CVA -on Aggrenox and statin #. History of colon cancer -outpatient follow Diet: Cardiac diet DVT prophylaxis: Lovenox 30 mg daily Full code Will admit patient for IV crystalloid resuscitation. Also needs evaluation and treatment for ongoing agitation. Quality Stroke Does the patient have a stroke diagnosis?: No VTE Prior VTE?: No VTE Risk Level:: Medical - moderate - high VTE Device Contraindication: N/A - Device Ordered VTE Drug Contraindication: N/A - Med Ordered
--- NOTE | 2021-10-29 21:12 | PC.NURSE ---
medication restraint documentation being performed on paper
--- NOTE | 2021-10-29 21:39 | PC.NURSE ---
unable to get iv access on patient, when this nurse attempted to speak with the patient about inserting an IV pt got agitated, notified hospitalist as he is being admitted.
--- NOTE | 2021-10-29 21:41 | PHA.MEDREC ---
Pharmacy Consult ? Medication Reconciliation Pharmacy has completed the medication reconciliation.
[2021-10-29 23:12] LABS: Magnesium 1.9 mg/dL (1.6-2.6)
[2021-10-29] MEDS: Haloperidol Lactate 5 MG/ML VIAL 2.5 MG IM (23:12)
[2021-10-29] MEDS: cefTRIAXone sodium 1 GM in 0.9 % Sodium Chloride 50 ML IV (23:28)
[2021-10-29 23:45] LABS: Creatinine Urine 95.88 mg/dL
--- NOTE | 2021-10-29 23:50 | PC.NURSE ---
Documenting medication restraint on paper. Pt. now sleeping in chair in hallway.
[2021-10-29] MEDS: 0.9 % Sodium Chloride 1,000 ML 999 ML IVCONT (23:59)
[2021-10-30] VITALS (8 sets, daily range): BP systolic 157–187; BP diastolic 86–97; PULSE 77–97; RESP 15–20; TEMP 36.9; O2SAT 94–100
--- NOTE | 2021-10-30 01:04 | PC.NURSE ---
Pt. woke up and said he needed to urinate. Tried a urinal. Pt. requested a texas catheter. Put one in place.
--- NOTE | 2021-10-30 01:14 | PC.NURSE ---
Pt. has been unable to urinate. Bladder scan done. 322mL found to be in the bladder. Will request order for straight cath from the provider.
--- NOTE | 2021-10-30 01:37 | PC.NURSE ---
Talked to provider about placing pt in a room with less stimuli and having a camera monitor instead of the 1:1. Okayed by Dr. Granados. Will move pt. from hallway to room 3.
--- NOTE | 2021-10-30 02:22 | PC.NURSE ---
Transferred to hospital bed. Patient was incontinent prior to transfer. Bed alarm set and given warm blanket.
--- NOTE | 2021-10-30 03:41 | PC.NURSE ---
PT texas cath removed by PT. PT given incontinence care
--- NOTE | 2021-10-30 06:48 | PC.NURSE ---
PT VERY AGGRESSIVE AND COMBATIVE. PT YELLING AND VERY VIOLENT WHEN GETTING ANY KIND OF ASSISTANCE PT INCONTINENT SOMETIMES AND WAS SOILED WITH URINE BED PAD CHANGED AND PT CLEANED
[2021-10-30] MEDS: OLANZapine 10 MG VIAL 5 MG IM (07:03)
--- NOTE | 2021-10-30 07:15 | PC.NURSE ---
Pt. agitated, yelling in room, trying to gizzard puller the med cart in room. Order obtained for zyprexa.
--- NOTE | 2021-10-30 07:20 | PC.NURSE ---
spoke to dr miranda to sign the medication restraint paperwork, but dr miranda and dr lopez both said that they don't sign those if the pt's are admitted,
--- NOTE | 2021-10-30 07:33 | PC.NURSE ---
Patient is resting comfortably. Vital signs stable
--- NOTE | 2021-10-30 10:34 | PC.NURSE ---
pt is currently asleep, respirations even and unlabored.
[2021-10-30] MEDS: hydrALAZINE HCl 50 MG TABLET PO ×2 (10:42→22:06)
[2021-10-30] MEDS: DULoxetine HCl 30 MG CAPSULE.DR PO (10:42)
[2021-10-30] MEDS: Sodium Bicarbonate 650 MG TABLET PO ×2 (10:42→22:06)
[2021-10-30] MEDS: amLODIPine Besylate 5 MG TABLET PO ×2 (10:43→22:06)
[2021-10-30] MEDS: Multivitamin TABLET 1 TAB PO (10:43)
[2021-10-30] MEDS: carvediloL 25 MG TABLET PO ×2 (10:43→22:06)
[2021-10-30] MEDS: 0.9 % Sodium Chloride Flush 3 ML SYRINGE IVFLUSH ×2 (10:44→16:29)
--- NOTE | 2021-10-30 10:46 | MHC.CM.PN ---
Attempted to meet with patient in regards to discharge planning. Patient is currently confused. Spoke with patient's /HCP, Renetta via telephone at [phone]. Patient was d/c'd from [facility] with [facility]. However, declined their services because patient did well in the past with a physical therapist at [facility]. She already reached out to [facility] and they were supposed to start this week. Referral made to [facility] via [facility]. Patient lives with . HCP verified to be on file. Patient received 3 Moderna vaccines. Obs notice explained and signed. Patient also has a kidney US scheduled for for Dr Kang. Renetta is requesting this be done while patient is in the hospital. Renetta encourages patient to drink fluids at home. However, patient will not listen. Renetta requesting IV fluid be ordered for home. T/W explained it is unlikely this will be ordered. Renetta verbalized understanding. Dr Gonzalez notified about these things. Renetta will transport patient home when medically stable.
--- NOTE | 2021-10-30 14:51 | PM.PSYCN ---
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 According to the crisis assessment, the patient was violent and angry throwing his belongings to his who called 911 and he was rushed to the hospital. A few days before he was admitted into the hospital for pillow nephritis and apparently he was recently diagnosed with end-stage renal disease. I interview his who was present and she explained that he was not taking any liquids at home he became very agitated and angry that is why she called 911. According to his , at baseline he always has being an anxious man and certain point he received Buspar on for anxiety. She stated that he was diagnosed of PTSD for his work in the . I tried to interview the patient but the patient was sedated. According to the ED nurses, the patient was agitated and needed IM olanzapine. Past Psychiatric History: the reports that he has never been admitted into the hospital for psychiatric reasons he received outpatient services [facility] the [facility] for anxiety and PTSD Medical Evaluation Reviewed: Yes Review of Systems Review of Systems Yes Unobtainable due to mental status PMFSH Medical History Cancer of kidney Colon cancer Colostomy in place Diabetes type 2, controlled High cholesterol HTN (hypertension) Hydronephrosis Hydroureter Kidney stone PTSD (post-traumatic stress disorder) Stroke Family History: denies Social History: good social support, his is very involved in his care Substance History: unknown Trauma History: traumatic experiences in the Diagnostics Vital Signs (24Hr): Vital Signs - 24 hr 10/29/21 16:04 10/29/21 20:19 10/30/21 06:06 Temperature 98.5 F 98.1 F 98.4 F Pulse Rate 68 69 81 Respiratory Rate 18 18 15 Blood Pressure 197/78 H 194/88 H 187/89 H Pulse Oximetry 96 97 98 Oxygen Delivery Method Room Air Room Air Room Air 10/30/21 07:18 10/30/21 07:03 10/30/21 07:33 Temperature Pulse Rate 81 79 78 Respiratory Rate 18 20 18 Blood Pressure 178/96 H 187/89 H 173/96 H Pulse Oximetry 95 96 94 Oxygen Delivery Method Room Air Room Air Room Air 10/30/21 07:48 10/30/21 10:46 Temperature Pulse Rate 85 79 Respiratory Rate 16 18 Blood Pressure 171/97 H 168/91 H Pulse Oximetry 94 100 Oxygen Delivery Method Room Air Room Air BMI result Body Mass Index 22.2 Labs Results: 10/29/21 18:19 10/29/21 18:19 Labs: Laboratory Results - last 48 hr 10/29/21 10/29/21 10/29/21 18:19 18:19 18:19 WBC 9.1 RBC 4.25 L Hgb 11.7 L Hct 36.6 L MCV 86.1 MCH 27.5 MCHC 32.0 RDW 14.4 Plt Count 307 D MPV 10.5 Immature Gran % (Auto) 0.3 Neut % (Auto) 59.6 Lymph % (Auto) 30.4 [place] % (Auto) 7.1 Eos % (Auto) 1.8 Baso % (Auto) 0.8 Lymph # (Auto) 2.8 [place] # (Auto) 0.7 Eos # (Auto) 0.2 Baso # (Auto) 0.1 Abs Immat Gran (auto) 0.03 Absolute Neuts (auto) 5.4 Absolute Nucleated RBC 0.000 Nucleated RBC % (auto) 0.0 Sodium 142 Potassium 4.8 D Chloride 108 Carbon Dioxide 20 L Anion Gap 19 BUN 38 H Creatinine 3.37 H Estim Creat Clear Calc 16.8 Estimated GFR 18 Random Glucose 190 H Calcium 9.5 D Magnesium Total Bilirubin 0.4 AST 16 ALT 17 Alkaline Phosphatase 114 Total Protein 7.6 Albumin 4.1 Urine Color Urine Appearance Urine pH Ur Specific [place] Urine Protein Urine Glucose (UA) Urine Ketones Urine Blood Urine Nitrite Ur Leukocyte Esterase Urine RBC Urine WBC Ur Squamous Epith Cells Urine Bacteria Hyaline Casts Ur Random Sodium Urine Creatinine COVID-19 (AMEYA) Negative COVID-19 Clin Com See Note 10/29/21 10/29/21 10/29/21 18:42 18:42 22:53 WBC RBC Hgb Hct MCV MCH MCHC RDW Plt Count MPV Immature Gran % (Auto) Neut % (Auto) Lymph % (Auto) [place] % (Auto) Eos % (Auto) Baso % (Auto) Lymph # (Auto) [place] # (Auto) Eos # (Auto) Baso # (Auto) Abs Immat Gran (auto) Absolute Neuts (auto) Absolute Nucleated RBC Nucleated RBC % (auto) Sodium Potassium Chloride Carbon Dioxide Anion Gap BUN Creatinine Estim Creat Clear Calc Estimated GFR Random Glucose Calcium Magnesium 1.9 Total Bilirubin AST ALT Alkaline Phosphatase Total Protein Albumin Urine Color Yellow Urine Appearance Clear Urine pH 5.5 Ur Specific [place] 1.020 Urine Protein 300 (3+) H Urine Glucose (UA) Negative Urine Ketones Negative Urine Blood Large (3+) H Urine Nitrite Negative Ur Leukocyte Esterase Trace H Urine RBC >20 H Urine WBC 6-10 H Ur Squamous Epith Cells 0-2 Urine Bacteria None Seen Hyaline Casts 0-2 Ur Random Sodium 79.0 Urine Creatinine 95.88 COVID-19 (AMEYA) COVID-19 Clin Com Imaging Radiology Impressions: ITS Impressions Abdomen/Pelvis CT 10/29/21 22:23 IMPRESSION: There are nonobstructing left renal calculi with chronic left-sided hydronephrosis with dilated ureter which does not appear to be secondary to calculus disease, but probable pelvic scarring from prior surgery and adhesions. Incidental findings include coronary artery calcifications benign hepatic cysts, stable right adrenal gland thickening, partial left-sided colectomy with presacral scarring and postsurgical changes, enteric anastomosis in the right abdomen and slightly more prominent bilateral inguinal hernias Fleischner guidelines were followed. Mental Status Exam Mental Status Exam Patient Appearance: Appropriate Level of Consciousness: Sedated and Disoriented Patient Behavior: Asleep Mood Description: Relaxed Affect Description: Calm Patient Cognition Impaired: Yes Ability to Follow Directions: Poor Speech Pattern: No Speech Hallucinations: None Delusions: Not Present Thought Process: Confusion Thought Content: positive for Poverty of Content Judgement: Poor Medications Medications Current Medications Acetaminophen (Acetaminophen 325 Mg Tablet) 650 mg PO Q6H PRN PRN Reason: Pain, Mild (Pain Scale 1-3) Amlodipine Besylate (Amlodipine Besylate 5 Mg Tablet) 5 mg PO BID [facility]; Protocol Last Admin: 10/30/21 10:43 Dose: 5 mg Atorvastatin Calcium (Atorvastatin Calcium 10 Mg Tablet) 10 mg PO BEDTIME [facility] Calcium Carbonate (Calcium Carbonate 500 Mg Tablet) 1,000 mg PO BID [facility] Last Admin: 10/30/21 12:23 Dose: 1,000 mg Carvedilol (Carvedilol 25 Mg Tablet) 25 mg PO BID [facility]; Protocol Last Admin: 10/30/21 10:43 Dose: 25 mg Dipyridamole/Aspirin (Aspirin/Dipyridamole Er 25/200 Cpmp.12hr) 1 cap PO BID [facility] Last Admin: 10/30/21 12:23 Dose: 1 cap Duloxetine HCl (Duloxetine Hcl 30 Mg Capsule.Dr) 30 mg PO DAILY [facility] Last Admin: 10/30/21 10:42 Dose: 30 mg Enoxaparin Sodium (Enoxaparin Sodium 30 Mg/0.3 Ml Syringe) 30 mg SUBCUT Q24H [facility] Last Admin: 10/30/21 00:42 Dose: Not Given Hydralazine HCl (Hydralazine Hcl 50 Mg Tablet) 50 mg PO BID [facility]; Protocol Last Admin: 10/30/21 10:42 Dose: 50 mg Melatonin (Melatonin 3 Mg Tablet) 6 mg PO BEDTIME PRN PRN Reason: Insomnia Multivitamins/Vitamin C (Multivitamin Tablet) 1 tab PO DAILY [facility] Last Admin: 10/30/21 10:43 Dose: 1 tab Ondansetron HCl (Ondansetron Hcl 4 Mg/2 Ml Vial) 4 mg IVPUSH Q8H PRN PRN Reason: Nausea and Vomiting Pharmacy Consult (Consult Rx Perform Med Rec) 1 each MISCELLANE ONCE PRN PRN Reason: Consult order Senna (Sennosides 8.6 Mg Tablet) 17.2 mg PO BEDTIME PRN PRN Reason: Constipation Sodium Bicarbonate (Sodium Bicarbonate 650 Mg Tablet) 650 mg PO BID [facility] Last Admin: 10/30/21 10:42 Dose: 650 mg Sodium Chloride (0.9 % Sodium Chloride Flush 3 Ml Syringe) 3 ml IVFLUSH QSHIFT [facility] Last Admin: 10/30/21 10:44 Dose: 3 ml Allergies Allergies Allergy/AdvReac Type Severity Reaction Status Date / Time erythromycin base Allergy Severe TREMORS Verified 08/26/20 12:00 [ERYTHROMYCIN BASE] morphine [MORPHINE] Allergy Severe HALLUCINATI Verified 08/26/20 12:00 ONS acetaminophen [From Percocet] AdvReac Intermediate agitation Verified 10/15/21 10:59 oxycodone [From Percocet] AdvReac Intermediate agitation Verified 10/15/21 10:59 prochlorperazine AdvReac dystonia Verified 10/15/21 10:59 [From Compazine] Assessment & Plan Assessment & Plan (1) Chronic post-traumatic stress disorder (PTSD): Status: Acute Code(s): F43.12 - Post-traumatic stress disorder, chronic (2) ESTUARDO (acute kidney injury): Status: Acute Code(s): N17.9 - Acute kidney failure, unspecified (3) Chronic UTI: Status: Acute Code(s): N39.0 - Urinary tract infection, site not specified (4) Colostomy in place: Status: Chronic Code(s): Z93.3 - Colostomy status (5) Diabetes type 2, controlled: Status: Acute Code(s): E11.9 - Type 2 diabetes mellitus without complications (6) Agitation: Status: Acute Code(s): R45.1 - Restlessness and agitation (7) Delirium: Status: Acute Code(s): R41.0 - Disorientation, unspecified Plan elderly male with several comorbidities such as end-stage renal disease, diabetes type 2, colostomy in place and other comorbidities admitted after he was violent and agitated at home, most likely due to medical problems. At this moment the patient was over-sedated due to the need of using olanzapine IM due to several agitation. The patient has delirium and he is going to be admitted to the medical unit. Plan 1. Zyprexa 5 mg p.o. q.6 p.r.n. psychosis/agitation. 2. Since the patient is on delirium right now, start Zyprexa 2.5 mg p.o. q.h.s. for the next days. 3. Avoid the use of benzodiazepines since they can worsen and disinhibit the patient. I spent __20____ minutes with the patient and/or on the patient floor today, greater than?50% of which was spent counseling/coordinating care. Informed Consent: does not understand
--- NOTE | 2021-10-30 15:57 | P.CNID_ITS ---
History of Present Illness Data of Consult Service Date: 10/30/21 Requesting physician: Laura Thacker Primary Care Provider: Iveth Bryant MD [facility] Reason for consult: hematuria He presents with hematuria last day. He had enterococcus urine and was given Amoxicillin and has been taking it. He has no bacteremia. He has no fever or chills. Review of Systems Review of Systems: Yes Unobtainable due to mental status PMFSH Past Medical History Medical History Cancer of kidney Colon cancer Colostomy in place Diabetes type 2, controlled High cholesterol HTN (hypertension) Hydronephrosis Hydroureter Kidney stone PTSD (post-traumatic stress disorder) Stroke Family History Family History Father Stroke Family history: reviewed and not pertinent Social History Social History Household Members: Spouse Housing: House Do you presently have visiting nurse or other home services: No Alcohol intake: never Patient Tobacco Use Status: Never used Tobacco Advance Directives: No Advance Directives Information Provided: No service: Yes Current occupational status: retired Meds Allergies Allergy/AdvReac Type Severity Reaction Status Date / Time erythromycin base Allergy Severe TREMORS Verified 08/26/20 12:00 [ERYTHROMYCIN BASE] morphine [MORPHINE] Allergy Severe HALLUCINATI Verified 08/26/20 12:00 ONS acetaminophen [From Percocet] AdvReac Intermediate agitation Verified 10/15/21 10:59 oxycodone [From Percocet] AdvReac Intermediate agitation Verified 10/15/21 10:59 prochlorperazine AdvReac dystonia Verified 10/15/21 10:59 [From Compazine] Active Medications: Current Medications Acetaminophen (Acetaminophen 325 Mg Tablet) 650 mg PO Q6H PRN PRN Reason: Pain, Mild (Pain Scale 1-3) Amlodipine Besylate (Amlodipine Besylate 5 Mg Tablet) 5 mg PO BID [facility]; Protocol Last Admin: 10/30/21 10:43 Dose: 5 mg Atorvastatin Calcium (Atorvastatin Calcium 10 Mg Tablet) 10 mg PO BEDTIME CARMELINA Calcium Carbonate (Calcium Carbonate 500 Mg Tablet) 1,000 mg PO BID CARMELINA Last Admin: 10/30/21 12:23 Dose: 1,000 mg Carvedilol (Carvedilol 25 Mg Tablet) 25 mg PO BID [facility]; Protocol Last Admin: 10/30/21 10:43 Dose: 25 mg Dipyridamole/Aspirin (Aspirin/Dipyridamole Er 25/200 Cpmp.12hr) 1 cap PO BID [facility] Last Admin: 10/30/21 12:23 Dose: 1 cap Duloxetine HCl (Duloxetine Hcl 30 Mg Capsule.Dr) 30 mg PO DAILY [facility] Last Admin: 10/30/21 10:42 Dose: 30 mg Enoxaparin Sodium (Enoxaparin Sodium 30 Mg/0.3 Ml Syringe) 30 mg SUBCUT Q24H [facility] Last Admin: 10/30/21 00:42 Dose: Not Given Hydralazine HCl (Hydralazine Hcl 50 Mg Tablet) 50 mg PO BID [facility]; Protocol Last Admin: 10/30/21 10:42 Dose: 50 mg Melatonin (Melatonin 3 Mg Tablet) 6 mg PO BEDTIME PRN PRN Reason: Insomnia Multivitamins/Vitamin C (Multivitamin Tablet) 1 tab PO DAILY [facility] Last Admin: 10/30/21 10:43 Dose: 1 tab Ondansetron HCl (Ondansetron Hcl 4 Mg/2 Ml Vial) 4 mg IVPUSH Q8H PRN PRN Reason: Nausea and Vomiting Pharmacy Consult (Consult Rx Perform Med Rec) 1 each MISCELLANE ONCE PRN PRN Reason: Consult order Senna (Sennosides 8.6 Mg Tablet) 17.2 mg PO BEDTIME PRN PRN Reason: Constipation Sodium Bicarbonate (Sodium Bicarbonate 650 Mg Tablet) 650 mg PO BID [facility] Last Admin: 10/30/21 10:42 Dose: 650 mg Sodium Chloride (0.9 % Sodium Chloride Flush 3 Ml Syringe) 3 ml IVFLUSH QSHIFT [facility] Last Admin: 10/30/21 10:44 Dose: 3 ml Home Medications Medication Instructions Recorded Confirmed Last Taken Type amlodipine 5 mg tablet 1 tab PO BID 08/26/20 10/29/21 10/14/21 History ascorbic acid (vitamin C) 500 mg 1,000 mg PO BID 08/26/20 10/29/21 10/14/21 History tablet (Vitamin C) aspirin 25 mg-dipyridamole 200 mg 1 cap PO BID 08/26/20 10/29/21 10/14/21 History capsule,ext.release 12 hr multiphase atorvastatin 10 mg tablet 10 mg PO BEDTIME 08/26/20 10/29/21 10/14/21 History calcium carbonate 650 mg calcium 1,300 mg PO BID 08/26/20 10/29/21 10/14/21 History (1,625 mg) tablet cholecalciferol (vitamin D3) 50 50 mcg PO DAILY 08/26/20 10/29/21 10/14/21 History mcg (2,000 unit) capsule (Vitamin D3) coenzyme Q10 100 mg capsule 300 mg PO DAILY 08/26/20 10/29/21 10/14/21 History (CoQ-10) docusate sodium 100 mg capsule 100 mg PO DAILY 08/26/20 10/29/21 10/14/21 History (Colace) duloxetine 30 mg capsule,delayed 1 cap PO BEDTIME 08/26/20 10/29/21 10/14/21 History release famotidine 20 mg tablet 20 mg PO BID 08/26/20 10/29/21 10/14/21 History hydralazine 50 mg tablet 50 mg PO BID 08/26/20 10/29/21 10/14/21 History mecobalamin (vitamin B12) 1,000 500 mcg PO DAILY 08/26/20 10/29/21 10/14/21 History mcg chewable tablet (B12 Active) melatonin 5 mg capsule 10 mg PO BEDTIME PRN Insomnia 08/26/20 10/29/21 10/14/21 History multivitamin 1 tab PO DAILY 08/26/20 10/29/21 10/14/21 History potassium chloride 20 mEq 1 tab PO DAILY 10/04/21 10/29/21 10/14/21 History tablet,extended release(part/cryst) sodium bicarbonate 650 mg tablet 1 tab PO BID 10/04/21 10/29/21 10/14/21 History zinc sulfate 50 mg zinc (220 mg) 1 cap PO DAILY 10/04/21 10/29/21 10/14/21 History capsule Lactobacillus acidophilus 1 2,000 mmu cells PO DAILY 10/15/21 10/29/21 10/14/21 History billion cell tablet carvedilol 25 mg tablet 1 tab PO BID 10/15/21 10/29/21 10/14/21 History lisinopril 5 mg tablet 1 tab PO BID 10/15/21 10/29/21 10/14/21 History acetaminophen 500 mg tablet 1,000 mg PO BEDTIME PRN Pain 10/29/21 10/29/21 Unknown History lisinopril 5 mg tablet 5 mg PO BID 10/29/21 10/29/21 Unknown History Physical Exam Vital Signs: Vital Signs: Last Vital Signs Temp 98.4 F 10/30/21 06:06 Pulse 79 10/30/21 10:46 Resp 18 10/30/21 10:46 BP 168/91 H 10/30/21 10:46 Pulse Ox 100 10/30/21 10:46 O2 Del Method 10/30/21 10:46 BMI result Body Mass Index 22.2 Const: General: cooperative HEENT: Head: Yes normal to inspection Face and sinus: Yes normal facial exam Mouth: Normal oral and palatal mucosa present Teeth and gingiva: d entition normal Eyes: General: appearance normal, both eyes and all related structures Pupils: Equal, round and reactive pupils present Resp: Effort & Inspection: normal respiratory effort Cardio: Rate: regular rate Rhythm: regular rhythm GI: Palpation (GI): Soft to palpation and nontender : General: Yes no CVA tenderness Back/Spine/Pelvis: Back: no CVA tenderness Skin: General skin exam: no rashes or lesions noted Neuro: General: moves all extremities Cranial nerves: Yes Equal, round and reactive pupils present Extrem: General: Yes normal to inspection Psych: Speech and movement: Psychomotor agitation in speech present Results Labs CBC & Chem 7: 10/29/21 18:19 10/29/21 18:19 Labs: Short CBC 10/29/21 Range/Units 18:19 WBC 9.1 (4.8-10.8) X10*3/uL Hgb 11.7 L (14.0-18.0) g/dl Hct 36.6 L (42.0-52.0) % Plt Count 307 D (160-400) X10*3/uL BMP 10/29/21 18:19 Sodium 142 Potassium 4.8 D Chloride 108 Carbon Dioxide 20 L BUN 38 H Creatinine 3.37 H Calcium 9.5 D Liver Function 10/29/21 Range/Units 18:19 Total Bilirubin 0.4 (0.0-1.0) mg/dL AST 16 (5-37) U/L ALT 17 (0-40) U/L Alkaline Phosphatase 114 (39-117) U/L Albumin 4.1 (3.5-5.0) g/dL Urine 10/29/21 Range/Units 18:42 Urine Color Yellow Urine Appearance Clear Urine pH 5.5 (5.0-9.0) Ur Specific [place] 1.020 (1.005-1.025) Urine Protein 300 (3+) H (Neg-Trace) mg/dL Urine Glucose (UA) Negative (Negative) mg/dL Microbiology Microbiology Results: Microbiology 10/29/21 18:42 Urine clean catch - Urine cowart top Urine Culture - P reliminary No growth to date. Assessment and Plan (1) Delirium: Status: Acute (2) Hematuria: Status: Acute He has hematuria and possible either viral hemorrhagic cystitis (?adenovirus) or nephrolithiasis. His urine culture is negative and has recently completed treatment for enterococcus UTI. (3) Pyuria: Status: Acute Plan No further antibiotics at this time. Urology evaluation.
[2021-10-30 16:35] LABS: Hematocrit 32.4 % (42.0-52.0); Hemoglobin 10.3 g/dl (14.0-18.0)
[2021-10-30 16:53] LABS: Anion Gap 18 (12-20); Blood Urea Nitrogen 33 mg/dL (9-16); Carbon Dioxide 19 mmol/L (22-29); Chloride 110 mmol/L (96-108); Creatinine Clr Calc Pharmacy 17.9; Estimated Glomerular Filt Rate 19; Glucose Random 268 mg/dL (60-115); Potassium 4.9 mmol/L (3.3-5.1); Sodium 142 mmol/L (135-145)
[2021-10-30 17:00] LABS: Calcium 8.9 mg/dL (8.4-10.2)
--- NOTE | 2021-10-30 17:44 | P.PNIM_ITS ---
Subjective Subjective Date of Service: 10/30/21 Interval History: Agitation, hematuria and pyuria Review of Systems Patient seems more calm this morning Denies any chest pain or shortness of breath or abdominal pain fever chills Physical Exam Vital Signs: Vital Signs: Last Vital Signs Temp 98.4 F 10/30/21 06:06 Pulse 79 10/30/21 10:46 Resp 18 10/30/21 10:46 BP 168/91 H 10/30/21 10:46 Pulse Ox 100 10/30/21 10:46 O2 Del Method 10/30/21 10:46 BMI result Body Mass Index 22.2 Appearance: Aawake .? not in distress.? cvs: rrr, [id number] . res: clear to auscultation ,no rhonchii or wheezing abd: no rebound or guarding ,nt, bs present. ext pulses present , no cyanosis. neuro: nonfocal. Objective Data Active Medications Acetaminophen (Acetaminophen 325 Mg Tablet) 650 mg PO Q6H PRN PRN Reason: Pain, Mild (Pain Scale 1-3) Amlodipine Besylate (Amlodipine Besylate 5 Mg Tablet) 5 mg PO BID [facility]; Protocol Last Admin: 10/30/21 10:43 Dose: 5 mg Documented By: VIKI Atorvastatin Calcium (Atorvastatin Calcium 10 Mg Tablet) 10 mg PO BEDTIME [facility] Calcium Carbonate (Calcium Carbonate 500 Mg Tablet) 1,000 mg PO BID [facility] Last Admin: 10/30/21 12:23 Dose: 1,000 mg Documented By: VIKI Carvedilol (Carvedilol 25 Mg Tablet) 25 mg PO BID [facility]; Protocol Last Admin: 10/30/21 10:43 Dose: 25 mg Documented By: VIKI Dipyridamole/Aspirin (Aspirin/Dipyridamole Er 25/200 Cpmp.12hr) 1 cap PO BID [facility] Last Admin: 10/30/21 12:23 Dose: 1 cap Documented By: VIKI Duloxetine HCl (Duloxetine Hcl 30 Mg Capsule.Dr) 30 mg PO DAILY [facility] Last Admin: 10/30/21 10:42 Dose: 30 mg Documented By: VIKI Enoxaparin Sodium (Enoxaparin Sodium 30 Mg/0.3 Ml Syringe) 30 mg SUBCUT Q24H [facility] Last Admin: 10/30/21 00:42 Dose: Not Given Documented By: FAREED Non-Admin Reason: Patient Refused Hydralazine HCl (Hydralazine Hcl 50 Mg Tablet) 50 mg PO BID [facility]; Protocol Last Admin: 10/30/21 10:42 Dose: 50 mg Documented By: VIKI Melatonin (Melatonin 3 Mg Tablet) 6 mg PO BEDTIME PRN PRN Reason: Insomnia Multivitamins/Vitamin C (Multivitamin Tablet) 1 tab PO DAILY [facility] Last Admin: 10/30/21 10:43 Dose: 1 tab Documented By: VIKI Ondansetron HCl (Ondansetron Hcl 4 Mg/2 Ml Vial) 4 mg IVPUSH Q8H PRN PRN Reason: Nausea and Vomiting Pharmacy Consult (Consult Rx Perform Med Rec) 1 each MISCELLANE ONCE PRN PRN Reason: Consult order Senna (Sennosides 8.6 Mg Tablet) 17.2 mg PO BEDTIME PRN PRN Reason: Constipation Sodium Bicarbonate (Sodium Bicarbonate 650 Mg Tablet) 650 mg PO BID [facility] Last Admin: 10/30/21 10:42 Dose: 650 mg Documented By: VIKI Sodium Chloride (0.9 % Sodium Chloride Flush 3 Ml Syringe) 3 ml IVFLUSH QSHIFT [facility] Last Admin: 10/30/21 16:29 Dose: 3 ml Documented By: NAHUN Labs CBC & Chem 7: 10/30/21 16:10 10/30/21 16:10 Labs: Laboratory Results - last 24 hr 10/29/21 10/29/21 10/29/21 18:19 18:19 18:19 MCV 86.1 MCH 27.5 MCHC 32.0 RDW 14.4 Plt Count 307 D MPV 10.5 Immature Gran % (Auto) 0.3 Neut % (Auto) 59.6 Lymph % (Auto) 30.4 [place] % (Auto) 7.1 Eos % (Auto) 1.8 Baso % (Auto) 0.8 Lymph # (Auto) 2.8 [place] # (Auto) 0.7 Eos # (Auto) 0.2 Baso # (Auto) 0.1 Abs Immat Gran (auto) 0.03 Absolute Neuts (auto) 5.4 Absolute Nucleated RBC 0.000 Nucleated RBC % (auto) 0.0 Anion Gap 19 Estim Creat Clear Calc 16.8 Estimated GFR 18 Random Glucose 190 H Calcium 9.5 D Magnesium Total Bilirubin 0.4 AST 16 ALT 17 Alkaline Phosphatase 114 Total Protein 7.6 Albumin 4.1 Urine Color Urine Appearance Urine pH Ur Specific [place] Urine Protein Urine Glucose (UA) Urine Ketones Urine Blood Urine Nitrite Ur Leukocyte Esterase Urine RBC Urine WBC Ur Squamous Epith Cells Urine Bacteria Hyaline Casts Ur Random Sodium Urine Creatinine COVID-19 (AMEYA) Negative COVID-19 Clin Com See Note 10/29/21 10/29/21 10/29/21 18:42 18:42 22:53 MCV MCH MCHC RDW Plt Count MPV Immature Gran % (Auto) Neut % (Auto) Lymph % (Auto) [place] % (Auto) Eos % (Auto) Baso % (Auto) Lymph # (Auto) [place] # (Auto) Eos # (Auto) Baso # (Auto) Abs Immat Gran (auto) Absolute Neuts (auto) Absolute Nucleated RBC Nucleated RBC % (auto) Anion Gap Estim Creat Clear Calc Estimated GFR Random Glucose Calcium Magnesium 1.9 Total Bilirubin AST ALT Alkaline Phosphatase Total Protein Albumin Urine Color Yellow Urine Appearance Clear Urine pH 5.5 Ur Specific [place] 1.020 Urine Protein 300 (3+) H Urine Glucose (UA) Negative Urine Ketones Negative Urine Blood Large (3+) H Urine Nitrite Negative Ur Leukocyte Esterase Trace H Urine RBC >20 H Urine WBC 6-10 H Ur Squamous Epith Cells 0-2 Urine Bacteria None Seen Hyaline Casts 0-2 Ur Random Sodium 79.0 Urine Creatinine 95.88 COVID-19 (AMEYA) COVID-19 Clin Com 10/30/21 16:10 MCV MCH MCHC RDW Plt Count MPV Immature Gran % (Auto) Neut % (Auto) Lymph % (Auto) [place] % (Auto) Eos % (Auto) Baso % (Auto) Lymph # (Auto) [place] # (Auto) Eos # (Auto) Baso # (Auto) Abs Immat Gran (auto) Absolute Neuts (auto) Absolute Nucleated RBC Nucleated RBC % (auto) Anion Gap 18 Estim Creat Clear Calc 17.9 Estimated GFR 19 Random Glucose 268 H D Calcium 8.9 D Magnesium Total Bilirubin AST ALT Alkaline Phosphatase Total Protein Albumin Urine Color Urine Appearance Urine pH Ur Specific [place] Urine Protein Urine Glucose (UA) Urine Ketones Urine Blood Urine Nitrite Ur Leukocyte Esterase Urine RBC Urine WBC Ur Squamous Epith Cells Urine Bacteria Hyaline Casts Ur Random Sodium Urine Creatinine COVID-19 (AMEYA) COVID-19 Clin Com Microbiology Microbiology Results: Microbiology 10/29/21 18:42 Urine Culture - Preliminary Urine clean catch - Urine cowart top No growth to date. Assessment and Plan (1) Pyuria: Status: Acute (2) Hematuria: Status: Acute (3) Agitation: Status: Acute (4) ESTUARDO (acute kidney injury): Status: Acute Plan 80-year-old male with a pertinent history of posttraumatic stress disorder, chronic kidney disease stage 4,, essential hypertension, history of colon cancer, CVA, history of recurrent nephrolithiasis who was brought to the emergency department by his due to agitation, being admitted for evaluation and management of acute kidney injury # Acute kidney injury on chronic kidney disease stage 4. continue gentle hydration #Hematuria with pyuria -unclear etiology.? Will resuscitate with IV crystalloids and monitor creatinine and urine output.? Urine sodium and creatinine and pending.? Patient recently completed antibiotics for Enterococcus faecalis in the urine.? Urine with trace leukocyte esterase, negative nitrites and minimal wbc's in the urine, will hold off to treat at this time.? Although patient is poor historian, no signs of infection or sepsis.? Does have hematuria and history of recurrent nephrolithiasis abdominal pelvis CT scan:.There are nonobstructing left renal calculi with chronic left-sided hydronephrosis with dilated ureter which does not appear to be secondary to calculus disease, but probable pelvic scarring from prior surgery and adhesions urology eval #Agitation in a patient with posttraumatic stress disorder: improving Unclear if this is baseline, unable to contact at this time.? continue home duloxetine.? Use Zyprexa p.r.n. for agitation and avoid Haldol due to QT prolongation. psych eval noted -continue zyprexa. # hypertension uncontrolled : seems improving -likely due to agitation.? Continue home medications, hydralazine, amlodipine, coreg.? Holding lisinopril the setting of ESTUARDO #History of CVA-on Aggrenox and statin #? History of colon cancer -outpatient follow Diet:? Cardiac diet DVT prophylaxis:?hold now Lovenox 30 mg daily due to hematuria,mech devices Full code need for inpatient:IV crystalloid resuscitation,eval for hematuria Quality Stroke Does the patient have a stroke diagnosis?: No VTE Prior VTE?: No VTE Risk Level:: Medical - moderate - high VTE Device Contraindication: N/A - Device Ordered VTE Drug Contraindication: N/A - Med Ordered
[2021-10-30] MEDS: Lactated Ringers 1,000 ML 80 ML IVCONT (20:22)
[2021-10-30] MEDS: Atorvastatin Calcium 10 MG TABLET PO (22:06)
[2021-10-31 06:54] LABS: Hematocrit 31.6 % (42.0-52.0); Hemoglobin 10.2 g/dl (14.0-18.0); Mean Corpuscular HGB Conc 32.3 g/dl (31.0-36.0); Mean Corpuscular Hemoglobin 27.6 pg (27.0-33.0); Mean Corpuscular Volume 85.4 fL (80.0-98.0); Mean Platelet Volume 10.6 fL (9.4-12.4); Platelet Count 224 X10*3/uL (160-400); Red Cell Distribution Width 14.5 % (11.0-16.0)
[2021-10-31 07:11] LABS: Anion Gap 15 (12-20); Blood Urea Nitrogen 31 mg/dL (9-16); Calcium 8.6 mg/dL (8.4-10.2); Carbon Dioxide 20 mmol/L (22-29); Chloride 113 mmol/L (96-108); Creatinine Clr Calc Pharmacy 18.8; Estimated Glomerular Filt Rate 20; Glucose Random 156 mg/dL (60-115); Potassium 4.2 mmol/L (3.3-5.1); Sodium 144 mmol/L (135-145)
[2021-10-31] MEDS: Lactated Ringers 1,000 ML 80 ML IVCONT ×2 (08:45→21:50)
[2021-10-31] MEDS: carvediloL 25 MG TABLET PO ×2 (10:54→21:54)
[2021-10-31] MEDS: amLODIPine Besylate 5 MG TABLET PO ×2 (10:54→21:54)
[2021-10-31] MEDS: DULoxetine HCl 30 MG CAPSULE.DR PO (10:54)
[2021-10-31] MEDS: Multivitamin TABLET 1 TAB PO (10:54)
[2021-10-31] MEDS: hydrALAZINE HCl 50 MG TABLET PO ×2 (10:54→21:53)
[2021-10-31] MEDS: Sodium Bicarbonate 650 MG TABLET PO ×2 (10:54→21:53)
--- NOTE | 2021-10-31 10:55 | PM.UROCN ---
History of Present Illness Consult details Consult date: 10/31/21 Narrative: Left hydroureteronephrosis 80-year-old male Re presentation to emergency room 2nd time and last month with left-sided flank pain, question of UTI Imaging - Marked pelvocaliectasis with a dilated left renal pelvis and dilated ureter is seen down into the pelvis Has had 17 prior stone procedures and stone passage on the left side Known distal scarring Discussed with Ronny and his Recommendation for cystoscopy, left retrograde, left stent placement He has stabilized in past 24 hours and is likely to be discharged so can be done next week Review of Systems Constitutional: Constitutional: Reports as per HPI and Reports no additional constitutional complaints Cardiovascular: Cardiovascular: Reports as per HPI and Reports no additional cardiovascular complaints Respiratory: Respiratory: Reports as per HPI and Reports no additional respiratory complaints Gastrointestinal: Gastrointestinal: Reports as per HPI and Reports no additional gastrointestinal complaints Genitourinary: Genitourinary: Reports as per HPI Musculoskeletal: Musculoskeletal: Reports no additional musculoskeletal complaints and Reports as per HPI Neurologic: Reports system reviewed and no additional complaints, except as documented and Reports as per HPI PMFSH Past Medical History Medical History Cancer of kidney Colon cancer Colostomy in place Diabetes type 2, controlled High cholesterol HTN (hypertension) Hydronephrosis Hydroureter Kidney stone PTSD (post-traumatic stress disorder) Stroke Family History Family History Father Stroke Family history: reviewed and not pertinent Social History Social History Household Members: Spouse Housing: House Do you presently have visiting nurse or other home services: No Alcohol intake: never Patient Tobacco Use Status: Never used Tobacco Advance Directives: No Advance Directives Information Provided: No service: Yes Current occupational status: retired Meds Allergies Allergy/AdvReac Type Severity Reaction Status Date / Time erythromycin base Allergy Severe TREMORS Verified 08/26/20 12:00 [ERYTHROMYCIN BASE] morphine [MORPHINE] Allergy Severe HALLUCINATI Verified 08/26/20 12:00 ONS acetaminophen [From Percocet] AdvReac Intermediate agitation Verified 10/15/21 10:59 oxycodone [From Percocet] AdvReac Intermediate agitation Verified 10/15/21 10:59 prochlorperazine AdvReac dystonia Verified 10/15/21 10:59 [From Compazine] Active Medications: Current Medications Acetaminophen (Acetaminophen 325 Mg Tablet) 650 mg PO Q6H PRN PRN Reason: Pain, Mild (Pain Scale 1-3) Amlodipine Besylate (Amlodipine Besylate 5 Mg Tablet) 5 mg PO BID [facility]; Protocol Last Admin: 10/31/21 10:54 Dose: 5 mg Atorvastatin Calcium (Atorvastatin Calcium 10 Mg Tablet) 10 mg PO BEDTIME CARMELINA Last Admin: 10/30/21 22:06 Dose: 10 mg Calcium Carbonate (Calcium Carbonate 500 Mg Tablet) 1,000 mg PO BID [facility] Last Admin: 10/30/21 22:06 Dose: 1,000 mg Carvedilol (Carvedilol 25 Mg Tablet) 25 mg PO BID [facility]; Protocol Last Admin: 10/31/21 10:54 Dose: 25 mg Dipyridamole/Aspirin (Aspirin/Dipyridamole Er 25/200 Cpmp.12hr) 1 cap PO BID [facility] Last Admin: 10/30/21 22:06 Dose: 1 cap Duloxetine HCl (Duloxetine Hcl 30 Mg Capsule.Dr) 30 mg PO DAILY [facility] Last Admin: 10/31/21 10:54 Dose: 30 mg Enoxaparin Sodium (Enoxaparin Sodium 30 Mg/0.3 Ml Syringe) 30 mg SUBCUT Q24H [facility] Last Admin: 10/30/21 00:42 Dose: Not Given Hydralazine HCl (Hydralazine Hcl 50 Mg Tablet) 50 mg PO BID [facility]; Protocol Last Admin: 10/31/21 10:54 Dose: 50 mg Lactated Ringer's (Lr) 1,000 mls @ 80 mls/hr IVCONT .[id number] [facility] Last Admin: 10/31/21 08:45 Dose: 80 mls/hr Melatonin (Melatonin 3 Mg Tablet) 6 mg PO BEDTIME PRN PRN Reason: Insomnia Multivitamins/Vitamin C (Multivitamin Tablet) 1 tab PO DAILY [facility] Last Admin: 10/31/21 10:54 Dose: 1 tab Ondansetron HCl (Ondansetron Hcl 4 Mg/2 Ml Vial) 4 mg IVPUSH Q8H PRN PRN Reason: Nausea and Vomiting Pharmacy Consult (Consult Rx Perform Med Rec) 1 each MISCELLANE ONCE PRN PRN Reason: Consult order Senna (Sennosides 8.6 Mg Tablet) 17.2 mg PO BEDTIME PRN PRN Reason: Constipation Sodium Bicarbonate (Sodium Bicarbonate 650 Mg Tablet) 650 mg PO BID [facility] Last Admin: 10/31/21 10:54 Dose: 650 mg Sodium Chloride (0.9 % Sodium Chloride Flush 3 Ml Syringe) 3 ml IVFLUSH QSHIFT [facility] Last Admin: 10/31/21 08:12 Dose: Not Given Home Medications Medication Instructions Recorded Confirmed Last Taken Type amlodipine 5 mg tablet 1 tab PO BID 08/26/20 10/29/21 10/14/21 History ascorbic acid (vitamin C) 500 mg 1,000 mg PO BID 08/26/20 10/29/21 10/14/21 History tablet (Vitamin C) aspirin 25 mg-dipyridamole 200 mg 1 cap PO BID 08/26/20 10/29/21 10/14/21 History capsule,ext.release 12 hr multiphase atorvastatin 10 mg tablet 10 mg PO BEDTIME 08/26/20 10/29/21 10/14/21 History calcium carbonate 650 mg calcium 1,300 mg PO BID 08/26/20 10/29/21 10/14/21 History (1,625 mg) tablet cholecalciferol (vitamin D3) 50 50 mcg PO DAILY 08/26/20 10/29/21 10/14/21 History mcg (2,000 unit) capsule (Vitamin D3) coenzyme Q10 100 mg capsule 300 mg PO DAILY 08/26/20 10/29/21 10/14/21 History (CoQ-10) docusate sodium 100 mg capsule 100 mg PO DAILY 08/26/20 10/29/21 10/14/21 History (Colace) duloxetine 30 mg capsule,delayed 1 cap PO BEDTIME 08/26/20 10/29/21 10/14/21 History release famotidine 20 mg tablet 20 mg PO BID 08/26/20 10/29/21 10/14/21 History hydralazine 50 mg tablet 50 mg PO BID 08/26/20 10/29/21 10/14/21 History mecobalamin (vitamin B12) 1,000 500 mcg PO DAILY 08/26/20 10/29/21 10/14/21 History mcg chewable tablet (B12 Active) melatonin 5 mg capsule 10 mg PO BEDTIME PRN Insomnia 08/26/20 10/29/21 10/14/21 History multivitamin 1 tab PO DAILY 08/26/20 10/29/21 10/14/21 History potassium chloride 20 mEq 1 tab PO DAILY 10/04/21 10/29/21 10/14/21 History tablet,extended release(part/cryst) sodium bicarbonate 650 mg tablet 1 tab PO BID 10/04/21 10/29/21 10/14/21 History zinc sulfate 50 mg zinc (220 mg) 1 cap PO DAILY 10/04/21 10/29/21 10/14/21 History capsule Lactobacillus acidophilus 1 2,000 mmu cells PO DAILY 10/15/21 10/29/21 10/14/21 History billion cell tablet carvedilol 25 mg tablet 1 tab PO BID 10/15/21 10/29/21 10/14/21 History lisinopril 5 mg tablet 1 tab PO BID 10/15/21 10/29/21 10/14/21 History acetaminophen 500 mg tablet 1,000 mg PO BEDTIME PRN Pain 10/29/21 10/29/21 Unknown History lisinopril 5 mg tablet 5 mg PO BID 10/29/21 10/29/21 Unknown History Physical Exam Vital Signs: Vital Signs: Last Vital Signs Temp 98.4 F 10/30/21 06:06 Pulse 77 10/30/21 23:26 Resp 18 10/30/21 23:26 BP 157/86 H 10/30/21 23:26 Pulse Ox 95 10/30/21 23:26 O2 Del Method 10/30/21 23:26 BMI result Body Mass Index 22.2 Const: General: cooperative, healthy appearing, comfortable and no acute distress Orientation/consciousness: patient oriented x3 HEENT: Face and sinus: Yes normal facial exam Mouth: moist mucous membranes Neck: Neck: Yes normal visual inspection, Yes full ROM and Yes trachea midline Chest: Chest palpation & inspection: normal inspection of the chest Resp: Effort & Inspection: normal respiratory effort, able to speak in complete sentences and no respiratory distress GI: Inspection: Yes normal to inspection Back/Spine/Pelvis: Cervical Spine: normal cervical lordosis Thoracic/Lumbar Spine: thoracic and lumbar spine normal to inspection Skin: General skin exam: no rashes or lesions noted Neuro: General: patient oriented x3, tone normal and moves all extremities Extrem: General: Yes normal to inspection and Yes capillary refill normal Results Labs Result diagrams: 10/31/21 06:00 10/31/21 06:00 Labs: Abnormal lab results 10/30/21 10/30/21 10/31/21 Range/Units 16:10 16:10 06:00 RBC 3.70 L (4.60-5.80) X10*6/uL Hgb 10.3 L 10.2 L (14.0-18.0) g/dl Hct 32.4 L 31.6 L (42.0-52.0) % Chloride 110 H (96-108) mmol/L Carbon Dioxide 19 L (22-29) mmol/L BUN 33 H (9-16) mg/dL Creatinine 3.16 H (0.5-1.4) mg/dL Random Glucose 268 H D (60-115) mg/dL 10/31/21 Range/Units 06:00 RBC (4.60-5.80) X10*6/uL Hgb (14.0-18.0) g/dl Hct (42.0-52.0) % Chloride 113 H (96-108) mmol/L Carbon Dioxide 20 L (22-29) mmol/L BUN 31 H (9-16) mg/dL Creatinine 3.00 H (0.5-1.4) mg/dL Random Glucose 156 H D (60-115) mg/dL Short CBC 10/30/21 10/31/21 Range/Units 16:10 06:00 WBC 7.0 (4.8-10.8) X10*3/uL Hgb 10.3 L 10.2 L (14.0-18.0) g/dl Hct 32.4 L 31.6 L (42.0-52.0) % Plt Count 224 D (160-400) X10*3/uL BMP 10/30/21 10/31/21 16:10 06:00 Sodium 142 144 Potassium 4.9 4.2 Chloride 110 H 113 H Carbon Dioxide 19 L 20 L BUN 33 H 31 H Creatinine 3.16 H 3.00 H Calcium 8.9 D 8.6 Urine 10/29/21 Range/Units 18:42 Urine Color Yellow Urine Appearance Clear Urine pH 5.5 (5.0-9.0) Ur Specific [place] 1.020 (1.005-1.025) Urine Protein 300 (3+) H (Neg-Trace) mg/dL Urine Glucose (UA) Negative (Negative) mg/dL All other labs normal. Assessment and Plan (1) Hematuria: Status: Acute (2) Pyuria: Status: Acute (3) ESTUARDO (acute kidney injury): Status: Acute Plan Encourage fluids Plan for cystoscopy with left retrograde possible stent placement next Friday Procedures Date of Service Date of Service: 10/31/21
--- NOTE | 2021-10-31 15:37 | HO.PM.IMPN ---
Subjective Subjective Date of Service: 10/31/21 Interval History: No new event overnight, denies any new episode of hematuria Review of Systems Abdominal pain seems to be improving Denies any chest pain or shortness of breath or fever chills. Physical Exam Vital Signs: Vital Signs: Last Vital Signs Temp 98.4 F 10/30/21 06:06 Pulse 77 10/30/21 23:26 Resp 18 10/30/21 23:26 BP 157/86 H 10/30/21 23:26 Pulse Ox 95 10/30/21 23:26 O2 Del Method 10/30/21 23:26 BMI result Body Mass Index 22.2 Appearance: [place]ake .? not in distress.? cvs: rrr, [id number] . res: clear to auscultation ,no rhonchii or wheezing abd: no rebound or guarding ,abd pain improving, bs present. ext pulses present , no cyanosis. neuro: nonfocal. Objective Data Active Medications Acetaminophen (Acetaminophen 325 Mg Tablet) 650 mg PO Q6H PRN PRN Reason: Pain, Mild (Pain Scale 1-3) Amlodipine Besylate (Amlodipine Besylate 5 Mg Tablet) 5 mg PO BID [facility]; Protocol Last Admin: 10/31/21 10:54 Dose: 5 mg Documented By: DULCE Atorvastatin Calcium (Atorvastatin Calcium 10 Mg Tablet) 10 mg PO BEDTIME [facility] Last Admin: 10/30/21 22:06 Dose: 10 mg Documented By: NAHUN Calcium Carbonate (Calcium Carbonate 500 Mg Tablet) 1,000 mg PO BID [facility] Last Admin: 10/31/21 12:26 Dose: 1,000 mg Documented By: DUSTY Carvedilol (Carvedilol 25 Mg Tablet) 25 mg PO BID [facility]; Protocol Last Admin: 10/31/21 10:54 Dose: 25 mg Documented By: DULCE Dipyridamole/Aspirin (Aspirin/Dipyridamole Er 25/200 Cpmp.12hr) 1 cap PO BID [facility] Last Admin: 10/31/21 12:25 Dose: 1 cap Documented By: DUSTY Duloxetine HCl (Duloxetine Hcl 30 Mg Capsule.Dr) 30 mg PO DAILY [facility] Last Admin: 10/31/21 10:54 Dose: 30 mg Documented By: DULCE Enoxaparin Sodium (Enoxaparin Sodium 30 Mg/0.3 Ml Syringe) 30 mg SUBCUT Q24H [facility] Last Admin: 10/30/21 00:42 Dose: Not Given Documented By: FAREED Non-Admin Reason: Patient Refused Hydralazine HCl (Hydralazine Hcl 50 Mg Tablet) 50 mg PO BID [facility]; Protocol Last Admin: 10/31/21 10:54 Dose: 50 mg Documented By: DULCE Lactated Ringer's (Lr) 1,000 mls @ 80 mls/hr IVCONT .[id number] [facility] Last Admin: 10/31/21 08:45 Dose: 80 mls/hr Documented By: ADILSON Melatonin (Melatonin 3 Mg Tablet) 6 mg PO BEDTIME PRN PRN Reason: Insomnia Multivitamins/Vitamin C (Multivitamin Tablet) 1 tab PO DAILY [facility] Last Admin: 10/31/21 10:54 Dose: 1 tab Documented By: DULCE Olanzapine (Olanzapine 2.5 Mg Tablet) 2.5 mg PO BID PRN PRN Reason: agitation Ondansetron HCl (Ondansetron Hcl 4 Mg/2 Ml Vial) 4 mg IVPUSH Q8H PRN PRN Reason: Nausea and Vomiting Pharmacy Consult (Consult Rx Perform Med Rec) 1 each MISCELLANE ONCE PRN PRN Reason: Consult order Senna (Sennosides 8.6 Mg Tablet) 17.2 mg PO BEDTIME PRN PRN Reason: Constipation Sodium Bicarbonate (Sodium Bicarbonate 650 Mg Tablet) 650 mg PO BID [facility] Last Admin: 10/31/21 10:54 Dose: 650 mg Documented By: DULCE Sodium Chloride (0.9 % Sodium Chloride Flush 3 Ml Syringe) 3 ml IVFLUSH QSHIFT [facility] Last Admin: 10/31/21 08:12 Dose: Not Given Documented By: ADILSON Non-Admin Reason: IV Running Labs CBC & Chem 7: 10/31/21 06:00 10/31/21 06:00 Labs: Laboratory Results - last 24 hr 10/30/21 10/31/21 10/31/21 16:10 06:00 06:00 MCV 85.4 MCH 27.6 MCHC 32.3 RDW 14.5 Plt Count 224 D MPV 10.6 Absolute Nucleated RBC 0.000 Nucleated RBC % (auto) 0.0 Anion Gap 18 15 Estim Creat Clear Calc 17.9 18.8 Estimated GFR 19 20 Random Glucose 268 H D 156 H D Calcium 8.9 D 8.6 Microbiology Microbiology Results: Microbiology 10/29/21 18:42 Urine Culture - Final Urine clean catch - Urine cowart top No growth. Assessment and Plan (1) Delirium: Status: Acute (2) Hematuria: Status: Acute (3) Pyuria: Status: Acute (4) ESTUARDO (acute kidney injury): Status: Acute Plan 80-year-old male with a pertinent history of posttraumatic stress disorder, chronic kidney disease stage 4,, essential hypertension, history of colon cancer, CVA, history of recurrent nephrolithiasis who was brought to the emergency department by his due to agitation, being admitted for evaluation and management of acute kidney injury # Acute kidney injury on chronic kidney disease stage 4. slowly improving continue gentle hydration #Hematuria with pyuria-possible related history of recurrent nephrolithiasis ?abdominal pelvis CT scan:.There are nonobstructing left renal calculi with chronic left-sided hydronephrosis with dilated ureter which does not appear to be secondary to calculus disease, but probable pelvic scarring from prior surgery and adhesions urology eval pending #intial Delirum episode possible multifactorial -recent stress at home related , posttraumatic stress disorder, pain possible related to nephrolithiasis: improved to baseline Unclear if this is baseline, unable to contact at this time.? ?continue home duloxetine.? Use Zyprexa p.r.n. for agitation and avoid Haldol due to QT prolongation. psych eval noted -continue zyprexa. # hypertension uncontrolled : seems improving -likely due to agitation.? Continue home medications, hydralazine, amlodipine, coreg.? Holding lisinopril the setting of ESTUARDO #History of CVA-on Aggrenox and statin #? History of colon cancer -outpatient follow Diet:? Cardiac diet DVT prophylaxis:?hold now Lovenox 30 mg daily due to hematuria,mech devices Full code need for inpatient:IV crystalloid resuscitation,eval for hematuria Quality Stroke Does the patient have a stroke diagnosis?: No VTE Prior VTE?: No VTE Risk Level:: Medical - moderate - high VTE Device Contraindication: N/A - Device Ordered VTE Drug Contraindication: N/A - Med Ordered
[2021-10-31 16:00] VITALS: BP 170/76; PULSE 60; RESP 16; TEMP 36.4; O2SAT 96
[2021-10-31 20:29] VITALS: BP 161/81; PULSE 68; RESP 18; O2SAT 96
--- NOTE | 2021-10-31 20:31 | PC.NURSE ---
pt a&ox3, vss, pt resting comfortably, LR running at 80mL per hour, pt calm and cooperative, ate dinner, at bedside for most of the day.
[2021-10-31] MEDS: Atorvastatin Calcium 10 MG TABLET PO (21:54)
--- NOTE | 2021-10-31 21:55 | PC.NURSE ---
pt medicated per provider order, ostomy pouch emptied, pt cleaned and repositioned.
[2021-10-31 23:57] VITALS: BP 156/83; PULSE 62; RESP 16; TEMP 36.7; O2SAT 96
--- NOTE | 2021-11-01 01:51 | PC.NURSE ---
ostomy bag emptied, pt resting comfortably, calm and cooperative.
[2021-11-01 06:12] VITALS: BP 166/65; PULSE 59; RESP 18; TEMP 36.7; O2SAT 97
--- NOTE | 2021-11-01 06:19 | PC.NURSE ---
pt cleaned and bedding changed, incontinent of urine, warm blankets and verbal reassurance given, vss - hypertensive, pt calm and cooperative with care.
[2021-11-01 09:12] LABS: Anion Gap 17 (12-20); Blood Urea Nitrogen 32 mg/dL (9-16); Carbon Dioxide 20 mmol/L (22-29); Chloride 111 mmol/L (96-108); Creatinine Clr Calc Pharmacy 18.8; Estimated Glomerular Filt Rate 20; Glucose Random 183 mg/dL (60-115); Potassium 4.4 mmol/L (3.3-5.1); Sodium 144 mmol/L (135-145)
--- NOTE | 2021-11-01 12:02 | PM.PNNEP ---
Subjective Subjective Date of Service: 11/01/21 Interval history: Seen and examiend, event snoted Physical Exam Vital Signs: Vital Signs: Last Vital Signs Temp 98.0 F 11/01/21 06:12 Pulse 59 11/01/21 06:12 Resp 18 11/01/21 06:12 BP 166/65 H 11/01/21 06:12 Pulse Ox 97 11/01/21 06:12 O2 Del Method 11/01/21 06:12 BMI result Body Mass Index 22.2 Const: General: cooperative, healthy appearing, comfortable and no acute distress Orientation/consciousness: patient oriented x3 HEENT: Head: Yes normal to inspection Face and sinus: Yes normal facial exam Mouth: Normal oral and palatal mucosa present and moist mucous membranes Teeth and gingiva: dentition normal Eyes: General: appearance normal, both eyes and all related structures Pupils: Equal, round and reactive pupils present Neck: Neck: Yes normal visual inspection, Yes full ROM and Yes trachea midline Chest: Chest palpation & inspection: normal inspection of the chest Resp: Effort & Inspection: normal respiratory effort, able to speak in complete sentences and no respiratory distress Cardio: Rate: regular rate Rhythm: regular rhythm GI: Inspection: Yes normal to inspection Palpation (GI): Soft to palpation and nontender : General: Yes no CVA tenderness Back/Spine/Pelvis: Back: no CVA tenderness Cervical Spine: normal cervical lordosis Thoracic/Lumbar Spine: thoracic and lumbar spine normal to inspection Skin: General skin exam: no rashes or lesions noted Neuro: General: patient oriented x3, tone normal and moves all extremities Cranial nerves: Yes Equal, round and reactive pupils present Extrem: General: Yes normal to inspection and Yes capillary refill normal Psych: Speech and movement: Psychomotor agitation in speech present Objective Data Labs CBC & Chem 7: 10/31/21 06:00 11/01/21 08:42 Labs: Laboratory Results - last 24 hr 11/01/21 08:42 Sodium 144 Potassium 4.4 Chloride 111 H Carbon Dioxide 20 L Anion Gap 17 BUN 32 H Creatinine 3.01 H Estim Creat Clear Calc 18.8 Estimated GFR 20 Random Glucose 183 H Calcium 9.0 Microbiology Microbiology Results: Microbiology 10/29/21 18:42 Urine clean catch - Urine cowart top Urine Culture - Final No growth. Procedures Date of Service Date of Service: 11/01/21 Assessment & Plan Assessment and plan (1) Delirium: Status: Acute (2) Hematuria: Status: Acute (3) Pyuria: Status: Acute (4) ESTUARDO (acute kidney injury): Status: Acute Plan Full COnsult dictated but not transcribed and they r suppose to get it 1. ESTUARDO: Obs uropathy of L kidney; Scr grad decr but still not at bsl 2. CKD 4; BSL SCr 2.0-2.5 3. L [place]: urol evaluating 4. HTN REC: hold BRANDON-I; track renal func; urol intervention ( TBD as outrpt ?); ok to d/c with lose monitoring as outpt with renal labs and f/u with urol; avoid NSAIDs Time Spent With Patient Time: Total time spent is greater than 50% in coordination of care (as documented) at patient's floor/unit and/or counseling patient: Progress Note: Quality Stroke Does the patient have a stroke diagnosis?: No
[2021-11-01] MEDS: carvediloL 25 MG TABLET PO ×2 (12:04→20:35)
[2021-11-01] MEDS: hydrALAZINE HCl 50 MG TABLET PO ×2 (12:05→20:34)
--- NOTE | 2021-11-01 12:05 | PC.NURSE ---
PT AT BEDSIDE
[2021-11-01] MEDS: Multivitamin TABLET 1 TAB PO (12:06)
[2021-11-01] MEDS: amLODIPine Besylate 5 MG TABLET PO ×2 (12:06→20:35)
[2021-11-01] MEDS: Sodium Bicarbonate 650 MG TABLET PO ×2 (12:06→20:34)
[2021-11-01] MEDS: DULoxetine HCl 30 MG CAPSULE.DR PO (12:06)
[2021-11-01] MEDS: Lactated Ringers 1,000 ML 80 ML IVCONT ×2 (13:15→20:40)
--- NOTE | 2021-11-01 13:17 | PC.NURSE ---
Assumed care of patient at this time.
--- NOTE | 2021-11-01 14:28 | MHC.CM.PN ---
Addendum entered by Minoo Mckeon 11/01/21 15:25: Per [facility], patient is eligible for [facility] through the [facility]. Addendum entered by Minoo Mckeon 11/01/21 15:00: No male beds available at any of the [facility] facilities. [facility] sent to [facility]. Will discuss with patient and if beds are avaialble. Original Note: Patient remains in ER overflow. Patient will go to the OR tomorrow, 11/02 for stent placement. Physical therapy eval completed. Short term rehab is recommended. Met with patient and , Renetta at patient's bedside. Patient is alert and oriented and engaged in conversation. Patient has been to [facility] [place] in the past. Patient is requesting referral there. Patient is also requesting a private room. Patient aware private rooms can be requested but not always feasible. Patient verbalizes understanding. Referral made via [facility]. Continue to monitor for d/c needs.
--- NOTE | 2021-11-01 15:42 | P.PNIM_ITS ---
Subjective Subjective Date of Service: 11/01/21 Interval History: estuardo , nephrolithiasis. Review of Systems Mental status back to baseline, Generalized weak Denies any nausea vomiting or abdominal pain. Physical Exam Vital Signs: Vital Signs: Last Vital Signs Temp 98.0 F 11/01/21 06:12 Pulse 59 11/01/21 06:12 Resp 18 11/01/21 06:12 BP 166/65 H 11/01/21 06:12 Pulse Ox 97 11/01/21 06:12 O2 Del Method 11/01/21 06:12 BMI result Body Mass Index 22.2 ? Appearance: Aawake .? not in distress.? cvs: rrr, [id number] . res: clear to auscultation ,no rhonchii or wheezing abd: no rebound or guarding ,abd pain improving, bs present. ext pulses present , no cyanosis. neuro: nonfocal. Objective Data Active Medications Acetaminophen (Acetaminophen 325 Mg Tablet) 650 mg PO Q6H PRN PRN Reason: Pain, Mild (Pain Scale 1-3) Amlodipine Besylate (Amlodipine Besylate 5 Mg Tablet) 5 mg PO BID [facility]; Protocol Last Admin: 11/01/21 12:06 Dose: 5 mg Documented By: MAYUR Atorvastatin Calcium (Atorvastatin Calcium 10 Mg Tablet) 10 mg PO BEDTIME [facility] Last Admin: 10/31/21 21:54 Dose: 10 mg Documented By: MADDENL Calcium Carbonate (Calcium Carbonate 500 Mg Tablet) 1,000 mg PO BID [facility] Last Admin: 11/01/21 13:12 Dose: Not Given Documented By: MAEGAN Non-Admin Reason: not my pt Carvedilol (Carvedilol 25 Mg Tablet) 25 mg PO BID [facility]; Protocol Last Admin: 11/01/21 12:04 Dose: 25 mg Documented By: MAYUR Dipyridamole/Aspirin (Aspirin/Dipyridamole Er 25/200 Cpmp.12hr) 1 cap PO BID [facility] Last Admin: 11/01/21 13:12 Dose: Not Given Documented By: MAEGAN Non-Admin Reason: not my pt Duloxetine HCl (Duloxetine Hcl 30 Mg Capsule.) 30 mg PO DAILY [facility] Last Admin: 11/01/21 12:06 Dose: 30 mg Documented By: MAYUR Enoxaparin Sodium (Enoxaparin Sodium 30 Mg/0.3 Ml Syringe) 30 mg SUBCUT Q24H [facility] Last Admin: 10/30/21 00:42 Dose: Not Given Documented By: FAREED Non-Admin Reason: Patient Refused Hydralazine HCl (Hydralazine Hcl 50 Mg Tablet) 50 mg PO BID [facility]; Protocol Last Admin: 11/01/21 12:05 Dose: 50 mg Documented By: MAYUR Lactated Ringer's (Lr) 1,000 mls @ 80 mls/hr IVCONT .[id number] [facility] Last Admin: 11/01/21 13:15 Dose: 80 mls/hr Documented By: MAEGAN Melatonin (Melatonin 3 Mg Tablet) 6 mg PO BEDTIME PRN PRN Reason: Insomnia Multivitamins/Vitamin C (Multivitamin Tablet) 1 tab PO DAILY [facility] Last Admin: 11/01/21 12:06 Dose: 1 tab Documented By: MAYUR Olanzapine (Olanzapine 2.5 Mg Tablet) 2.5 mg PO BID PRN PRN Reason: agitation Ondansetron HCl (Ondansetron Hcl 4 Mg/2 Ml Vial) 4 mg IVPUSH Q8H PRN PRN Reason: Nausea and Vomiting Pharmacy Consult (Consult Rx Perform Med Rec) 1 each MISCELLANE ONCE PRN PRN Reason: Consult order Senna (Sennosides 8.6 Mg Tablet) 17.2 mg PO BEDTIME PRN PRN Reason: Constipation Sodium Bicarbonate (Sodium Bicarbonate 650 Mg Tablet) 650 mg PO BID [facility] Last Admin: 11/01/21 12:06 Dose: 650 mg Documented By: MAYUR Sodium Chloride (0.9 % Sodium Chloride Flush 3 Ml Syringe) 3 ml IVFLUSH QSHIFT [facility] Last Admin: 11/01/21 13:09 Dose: Not Given Documented By: MAEGAN Non-Admin Reason: not my pt Labs CBC & Chem 7: 10/31/21 06:00 11/01/21 08:42 Labs: Laboratory Results - last 24 hr 11/01/21 08:42 Anion Gap 17 Estim Creat Clear Calc 18.8 Estimated GFR 20 Random Glucose 183 H Calcium 9.0 Microbiology Microbiology Results: Microbiology 10/29/21 18:42 Urine Culture - Final Urine clean catch - Urine cowart top No growth. Assessment and Plan (1) Hematuria: Status: Acute (2) Pyuria: Status: Acute (3) ESTUARDO (acute kidney injury): Status: Acute Plan 80-year-old male with a pertinent history of posttraumatic stress disorder, chronic kidney disease stage 4,, essential hypertension, history of colon cancer, CVA, history of recurrent nephrolithiasis who was brought to the emergency department by his due to agitation, being admitted for evaluation and management of acute kidney injury # Acute kidney injury on chronic kidney disease stage 4. slowly improving continue gentle hydration #Hematuria with pyuria-possible related? history of recurrent nephrolithiasis ?abdominal pelvis CT scan:.There are nonobstructing left renal calculi with chronic left-sided hydronephrosis with dilated ureter which does not appear to be secondary to calculus disease, but probable pelvic scarring from prior surgery and adhesions urology eval -need urologic procedure sirena m, npo past midnight #intial Delirum episode possible multifactorial -recent stress at home related , posttraumatic stress disorder, pain possible related to nephrolithiasis: improved to baseline Unclear if this is baseline, unable to contact at this time.? ?continue home duloxetine.? Use Zyprexa p.r.n. for agitation and avoid Haldol due to QT prolongation. psych eval noted -continue zyprexa. # hypertension uncontrolled : seems improving -likely due to agitation.? Continue home medications, hydralazine, amlodipine, coreg.? Holding lisinopril the setting of ESTUARDO #History of CVA-on Aggrenox and statin #? History of colon cancer -outpatient follow PT -str Diet:? Cardiac diet DVT prophylaxis:?hold now Lovenox 30 mg daily due to hematuria,mech devices Full code need for inpatient:IV crystalloid resuscitation,need urologic procedure sirena m, npo past midnight Quality Stroke Does the patient have a stroke diagnosis?: No VTE Prior VTE?: No VTE Risk Level:: Medical - moderate - high VTE Device Contraindication: N/A - Device Ordered VTE Drug Contraindication: N/A - Med Ordered
--- NOTE | 2021-11-01 15:51 | CONS_ITS ---
DATE OF SERVICE: 10/31/2021 REASON FOR CONSULTATION: Asked to see patient to assist in evaluation and management of patient's acute kidney injury on advanced chronic kidney disease as reflected by creatinine of 3.16 on admission yesterday. In reviewing his creatinine, it appears that they have been in the 2 to 2.5 range. He actually was hospitalized earlier this month with an episode of pyelonephritis and noted to have left hydro and was seen by Urology at that time. He now presents to the hospital because his was concerned that he was increasingly agitated. The patient is a poor historian. Information obtained from the electronic medical record and from his . He overall is feeling better and his says that he is more comfortable now. HISTORY OF PRESENT ILLNESS: Reviewing his records, he was last hospitalized earlier this month with an episode of pyelonephritis and left hydro and a worsening renal function. He did not have an obstructing stone. It was felt that the left hydro may have been due to prior scarring as he does have a history of kidney stones. His hospital course included IV fluids and antibiotics and his creatinine has improved slightly. PAST MEDICAL HISTORY: As listed including kidney cancer, again details unclear. Colon cancer. He has a colostomy in place, type 2 diabetes, hypertension, left hydronephrosis and hydroureter. History of kidney stones. PTSD and a stroke in the past. MEDICATIONS: His medications on admission are noted in the admitting notes. Current medications noted in the MAR. ALLERGIES: NOTED IN ELECTRONIC MEDICAL RECORD. HE IS A NONSMOKER. REVIEW OF SYSTEMS: As noted above. PHYSICAL EXAMINATION: VITAL SIGNS: Blood pressure 150/80 with a heart rate in the 70s. HEAD: Atraumatic and normocephalic. NECK: Supple. Mucous membranes moist. LUNGS: Breath sounds bilaterally. CARDIAC: Regular rate and rhythm. ABDOMEN: Soft. EXTREMITIES: No edema. LABORATORY DATA: Labs from today show sodium 144, potassium 4.2, chloride 113, bicarb 20, BUN 31, creatinine 3.0. As mentioned, his baseline creatinine seems to have been 2 to 2.5 up until this last hospitalization, now it seems to be slightly elevated from previous baseline. Hemoglobin 10.2, hematocrit 31.6, white blood cell count 7.0. Urinalysis showed 3+ protein, large amount of blood. Imaging studies showed a CAT scan from without IV contrast, which again shows the right kidney being unremarkable, the left kidney with 3 nonobstructing stones that were seen previously along with marked pelviectasis and a dilated left renal pelvis and ureter all the way down into the pelvis. No obstructing stone seen. There is a previous CAT scan from August 2020. At that time, the left kidney was described as small and atrophied, but no mention of hydronephrosis at that time. From September of 2021, there was a CAT scan as well, which showed dilated left renal pelvis and ureter extending to the distal segment. There is mention made that the ureters lost in the area where there was scarring and adhesions and therefore they thought it might be related to this for the obstruction. IMPRESSION: 80-YEAR-OLD WITH ACUTE KIDNEY INJURY ON ADVANCED CHRONIC KIDNEY DISEASE, READMITTED TO THE HOSPITAL WITH AGITATION. 1. Acute kidney injury. The left kidney may be a new obstructive process and may contribute to his worsening renal function. Urology is going to see the patient to see whether or not he is a candidate for cysto and retrograde stent placement. His baseline creatinine seems to be in the 2 to 2.5 range and this may be due to underlying diabetic kidney disease and recurrent stones and obstruction in the past. He is currently on IV fluids. His renal functions improved a little bit. We will continue to monitor his urine output and renal function. 2. Left hydro without obstructing stone. Again, Urology will see the patient for possible cysto retrograde stent. 3. Agitation. This seems to be better. SUGGESTIONS: At this time include continue gentle IV fluids. Urology to see patient about possible cysto retrograde and stent placement. Follow urine output and renal function. Avoid nephrotoxins. We will protect his nondominant arm for possible future AV fistula. MD ALEXIS Qureshi/LISETH / [phone]
[2021-11-01] MEDS: 0.9 % Sodium Chloride Flush 3 ML SYRINGE IVFLUSH (16:29)
[2021-11-01 16:56] VITALS: BP 166/82; PULSE 61; RESP 16; TEMP 36.6; O2SAT 97
--- NOTE | 2021-11-01 18:55 | PC.NURSE ---
Report given to PATRIC Peralta assuming care of patient on S3 at this time.
[2021-11-01 20:06] VITALS: BP 172/86; PULSE 69
--- NOTE | 2021-11-01 20:21 | PC.NURSE ---
Held Aggrenox per Dr. Kang,patient will have a procedure tomorrow.
[2021-11-01] MEDS: Atorvastatin Calcium 10 MG TABLET PO (20:35)
[2021-11-01 23:24] VITALS: BP 180/79; PULSE 67; RESP 16; TEMP 36.4; O2SAT 97
[2021-11-02] VITALS (12 sets, daily range): BP systolic 133–187; BP diastolic 68–95; PULSE 58–70; RESP 15–20; TEMP 35.6–37; O2SAT 95–97
[2021-11-02] MEDS: 0.9 % Sodium Chloride Flush 3 ML SYRINGE IVFLUSH (00:09)
[2021-11-02] MEDS: Sodium Bicarbonate 650 MG TABLET PO ×2 (08:05→19:50)
[2021-11-02] MEDS: DULoxetine HCl 30 MG CAPSULE.DR PO (08:05)
[2021-11-02] MEDS: hydrALAZINE HCl 50 MG TABLET PO ×2 (08:05→19:50)
[2021-11-02] MEDS: carvediloL 25 MG TABLET PO ×2 (08:05→19:50)
[2021-11-02] MEDS: amLODIPine Besylate 5 MG TABLET PO ×2 (08:05→19:50)
[2021-11-02 08:42] LABS: Anion Gap 16 (12-20); Blood Urea Nitrogen 30 mg/dL (9-16); Calcium 8.6 mg/dL (8.4-10.2); Carbon Dioxide 19 mmol/L (22-29); Chloride 110 mmol/L (96-108); Estimated Glomerular Filt Rate 22; Glucose Random 202 mg/dL (60-115); Potassium 4.3 mmol/L (3.3-5.1); Sodium 141 mmol/L (135-145)
[2021-11-02] MEDS: Lactated Ringers 1,000 ML 80 ML IVCONT ×2 (12:08→16:32)
--- NOTE | 2021-11-02 16:02 | P.CONAN_ITS ---
HPI - Anesthesia Eval Consult details Narrative: Left uretwer stone PMFSH Active Problems Active Problems: All Active Problems (Updated 10/30/21 @ 14:58 by Rodriguez Feng) Delirium (Acute) Pyuria (Acute) Hematuria (Acute) Agitation (Acute) Chronic post-traumatic stress disorder (PTSD) (Acute) ESTUARDO (acute kidney injury) (Acute) Chronic UTI (Acute) Colostomy in place (Chronic) Diabetes type 2, controlled (Acute) Past Medical History Medical History Cancer of kidney Colon cancer Colostomy in place Diabetes type 2, controlled High cholesterol HTN (hypertension) Hydronephrosis Hydroureter Kidney stone PTSD (post-traumatic stress disorder) Stroke Family History Family History Father Stroke Family history of problems with anesthesia: No Surgical History History of Problems with Anesthesia: No Social History Social History Household Members: Spouse Housing: House Do you presently have visiting nurse or other home services: No Alcohol intake: never Patient Tobacco Use Status: Never used Tobacco Use of substances other than those prescribed or required for medical reasons: No Currently Displaying Signs/Symptoms of Drug Intoxication Withdrawal: No Have you been hit, kicked, punched, or otherwise hurt by someone within the past year? If so, by whom?: No Do you feel safe in your current relationship?: Yes Is there a partner from a previous relationship who is making you feel unsafe now?: No Are you made to feel afraid or neglected: No Are you DNR?: No Advance Directives: No Advance Directives Information Provided: No Do you have thoughts of harming others: None Do you have a plan to hurt others: No Plan Recently lost weight without trying: No Nutrition Risks: No Nutritional Risk Poor oral hygiene: No service: Yes Current occupational status: retired Meds Allergies Allergy/AdvReac Type Severity Reaction Status Date / Time erythromycin base Allergy Severe TREMORS Verified 08/26/20 12:00 [ERYTHROMYCIN BASE] morphine [MORPHINE] Allergy Severe HALLUCINATI Verified 08/26/20 12:00 ONS acetaminophen [From Percocet] AdvReac Intermediate agitation Verified 10/15/21 10:59 oxycodone [From Percocet] AdvReac Intermediate agitation Verified 10/15/21 10:59 prochlorperazine AdvReac dystonia Verified 10/15/21 10:59 [From Compazine] Active Medications: Current Medications Acetaminophen (Acetaminophen 325 Mg Tablet) 650 mg PO Q6H PRN PRN Reason: Pain, Mild (Pain Scale 1-3) Amlodipine Besylate (Amlodipine Besylate 5 Mg Tablet) 5 mg PO BID [facility]; Protocol Last Admin: 11/02/21 08:05 Dose: 5 mg Atorvastatin Calcium (Atorvastatin Calcium 10 Mg Tablet) 10 mg PO BEDTIME [facility] Last Admin: 11/01/21 20:35 Dose: 10 mg Calcium Carbonate (Calcium Carbonate 500 Mg Tablet) 1,000 mg PO BID [facility] Last Admin: 11/02/21 08:05 Dose: 1,000 mg Carvedilol (Carvedilol 25 Mg Tablet) 25 mg PO BID [facility]; Protocol Last Admin: 11/02/21 08:05 Dose: 25 mg Dipyridamole/Aspirin (Aspirin/Dipyridamole Er 25/200 Cpmp.12hr) 1 cap PO BID [facility] Last Admin: 11/02/21 07:54 Dose: Not Given Duloxetine HCl (Duloxetine Hcl 30 Mg Capsule.Dr) 30 mg PO DAILY [facility] Last Admin: 11/02/21 08:05 Dose: 30 mg Enoxaparin Sodium (Enoxaparin Sodium 30 Mg/0.3 Ml Syringe) 30 mg SUBCUT Q24H [facility] Last Admin: 10/30/21 00:42 Dose: Not Given Hydralazine HCl (Hydralazine Hcl 50 Mg Tablet) 50 mg PO BID [facility]; Protocol Last Admin: 11/02/21 08:05 Dose: 50 mg Lactated Ringer's (Lr) 1,000 mls @ 80 mls/hr IVCONT .[id number] [facility] Last Admin: 11/02/21 12:08 Dose: 80 mls/hr Melatonin (Melatonin 3 Mg Tablet) 6 mg PO BEDTIME PRN PRN Reason: Insomnia Multivitamins/Vitamin C (Multivitamin Tablet) 1 tab PO DAILY [facility] Last Admin: 11/02/21 08:18 Dose: Not Given Olanzapine (Olanzapine 2.5 Mg Tablet) 2.5 mg PO BID PRN PRN Reason: agitation Ondansetron HCl (Ondansetron Hcl 4 Mg/2 Ml Vial) 4 mg IVPUSH Q8H PRN PRN Reason: Nausea and Vomiting Pharmacy Consult (Consult Rx Perform Med Rec) 1 each MISCELLANE ONCE PRN PRN Reason: Consult order Senna (Sennosides 8.6 Mg Tablet) 17.2 mg PO BEDTIME PRN PRN Reason: Constipation Sodium Bicarbonate (Sodium Bicarbonate 650 Mg Tablet) 650 mg PO BID [facility] Last Admin: 11/02/21 08:05 Dose: 650 mg Sodium Chloride (0.9 % Sodium Chloride Flush 3 Ml Syringe) 3 ml IVFLUSH [facility] Last Admin: 11/02/21 08:05 Dose: Not Given Home Medications Medication Instructions Recorded Confirmed Last Taken Type amlodipine 5 mg tablet 1 tab PO BID 08/26/20 10/29/21 10/14/21 History ascorbic acid (vitamin C) 500 mg 1,000 mg PO BID 08/26/20 10/29/21 10/14/21 History tablet (Vitamin C) aspirin 25 mg-dipyridamole 200 mg 1 cap PO BID 08/26/20 10/29/21 10/14/21 History capsule,ext.release 12 hr multiphase atorvastatin 10 mg tablet 10 mg PO BEDTIME 08/26/20 10/29/21 10/14/21 History calcium carbonate 650 mg calcium 1,300 mg PO BID 08/26/20 10/29/21 10/14/21 History (1,625 mg) tablet cholecalciferol (vitamin D3) 50 50 mcg PO DAILY 08/26/20 10/29/21 10/14/21 History mcg (2,000 unit) capsule (Vitamin D3) coenzyme Q10 100 mg capsule 300 mg PO DAILY 08/26/20 10/29/21 10/14/21 History (CoQ-10) docusate sodium 100 mg capsule 100 mg PO DAILY 08/26/20 10/29/21 10/14/21 History (Colace) duloxetine 30 mg capsule,delayed 1 cap PO BEDTIME 08/26/20 10/29/21 10/14/21 History release famotidine 20 mg tablet 20 mg PO BID 08/26/20 10/29/21 10/14/21 History hydralazine 50 mg tablet 50 mg PO BID 08/26/20 10/29/21 10/14/21 History mecobalamin (vitamin B12) 1,000 500 mcg PO DAILY 08/26/20 10/29/21 10/14/21 History mcg chewable tablet (B12 Active) melatonin 5 mg capsule 10 mg PO BEDTIME PRN Insomnia 08/26/20 10/29/21 10/14/21 History multivitamin 1 tab PO DAILY 08/26/20 10/29/21 10/14/21 History potassium chloride 20 mEq 1 tab PO DAILY 10/04/21 10/29/21 10/14/21 History tablet,extended release(part/cryst) sodium bicarbonate 650 mg tablet 1 tab PO BID 10/04/21 10/29/21 10/14/21 History zinc sulfate 50 mg zinc (220 mg) 1 cap PO DAILY 10/04/21 10/29/21 10/14/21 History capsule Lactobacillus acidophilus 1 2,000 mmu cells PO DAILY 10/15/21 10/29/21 10/14/21 History billion cell tablet carvedilol 25 mg tablet 1 tab PO BID 10/15/21 10/29/21 10/14/21 History lisinopril 5 mg tablet 1 tab PO BID 10/15/21 10/29/21 10/14/21 History acetaminophen 500 mg tablet 1,000 mg PO BEDTIME PRN Pain 10/29/21 10/29/21 Unknown History lisinopril 5 mg tablet 5 mg PO BID 10/29/21 10/29/21 Unknown History Exam Exam Date and Time: November 02, 2021 1602 Height,Weight and Vital Signs: Height 5 ft 10 in Weight 70.307 kg Last Vital Signs Temp 98.5 F 11/02/21 15:25 Pulse 62 11/02/21 15:25 Resp 20 11/02/21 15:25 BP 177/83 H 11/02/21 15:25 Pulse Ox 97 11/02/21 15:25 O2 Del Method 11/02/21 15:25 Pertinent Lab Results Pertinent Lab Results: Laboratory Tests 10/29/21 10/29/21 10/29/21 18:19 18:19 18:19 WBC 9.1 RBC 4.25 L Hgb 11.7 L Hct 36.6 L MCV 86.1 MCH 27.5 MCHC 32.0 RDW 14.4 Plt Count 307 D MPV 10.5 Immature Gran % (Auto) 0.3 Neut % (Auto) 59.6 Lymph % (Auto) 30.4 Rains % (Auto) 7.1 Eos % (Auto) 1.8 Baso % (Auto) 0.8 Lymph # (Auto) 2.8 Rains # (Auto) 0.7 Eos # (Auto) 0.2 Baso # (Auto) 0.1 Abs Immat Gran (auto) 0.03 Absolute Neuts (auto) 5.4 Absolute Nucleated RBC 0.000 Nucleated RBC % (auto) 0.0 Sodium 142 Potassium 4.8 D Chloride 108 Carbon Dioxide 20 L Anion Gap 19 BUN 38 H Creatinine 3.37 H Estim Creat Clear Calc 16.8 Estimated GFR 18 Random Glucose 190 H Calcium 9.5 D Magnesium Total Bilirubin 0.4 AST 16 ALT 17 Alkaline Phosphatase 114 Total Protein 7.6 Albumin 4.1 Urine Color Urine Appearance Urine pH Ur Specific [place] Urine Protein Urine Glucose (UA) Urine Ketones Urine Blood Urine Nitrite Ur Leukocyte Esterase Urine RBC Urine WBC Ur Squamous Epith Cells Urine Bacteria Hyaline Casts Ur Random Sodium Urine Creatinine COVID-19 ([facility]YA) Negative COVID-19 [employer] See Note 10/29/21 10/29/21 10/29/21 18:42 18:42 22:53 WBC RBC Hgb Hct MCV MCH MCHC RDW Plt Count MPV Immature Gran % (Auto) Neut % (Auto) Lymph % (Auto) Rains % (Auto) Eos % (Auto) Baso % (Auto) Lymph # (Auto) Rains # (Auto) Eos # (Auto) Baso # (Auto) Abs Immat Gran (auto) Absolute Neuts (auto) Absolute Nucleated RBC Nucleated RBC % (auto) Sodium Potassium Chloride Carbon Dioxide Anion Gap BUN Creatinine Estim Creat Clear Calc Estimated GFR Random Glucose Calcium Magnesium 1.9 Total Bilirubin AST ALT Alkaline Phosphatase Total Protein Albumin Urine Color Yellow Urine Appearance Clear Urine pH 5.5 Ur Specific [place] 1.020 Urine Protein 300 (3+) H Urine Glucose (UA) Negative Urine Ketones Negative Urine Blood Large (3+) H Urine Nitrite Negative Ur Leukocyte Esterase Trace H Urine RBC >20 H Urine WBC 6-10 H Ur Squamous Epith Cells 0-2 Urine Bacteria None Seen Hyaline Casts 0-2 Ur Random Sodium 79.0 Urine Creatinine 95.88 COVID-19 (AMEYA) COVID-19 [employer] 10/30/21 10/30/21 10/31/21 16:10 16:10 06:00 WBC 7.0 RBC 3.70 L Hgb 10.3 L 10.2 L Hct 32.4 L 31.6 L MCV 85.4 MCH 27.6 MCHC 32.3 RDW 14.5 Plt Count 224 D MPV 10.6 Immature Gran % (Auto) Neut % (Auto) Lymph % (Auto) Rains % (Auto) Eos % (Auto) Baso % (Auto) Lymph # (Auto) Rains # (Auto) Eos # (Auto) Baso # (Auto) Abs Immat Gran (auto) Absolute Neuts (auto) Absolute Nucleated RBC 0.000 Nucleated RBC % (auto) 0.0 Sodium 142 Potassium 4.9 Chloride 110 H Carbon Dioxide 19 L Anion Gap 18 BUN 33 H Creatinine 3.16 H Estim Creat Clear Calc 17.9 Estimated GFR 19 Random Glucose 268 H D Calcium 8.9 D Magnesium Total Bilirubin AST ALT Alkaline Phosphatase Total Protein Albumin Urine Color Urine Appearance Urine pH Ur Specific [place] Urine Protein Urine Glucose (UA) Urine Ketones Urine Blood Urine Nitrite Ur Leukocyte Esterase Urine RBC Urine WBC Ur Squamous Epith Cells Urine Bacteria Hyaline Casts Ur Random Sodium Urine Creatinine COVID-19 ([facility]) COVID-19 Clin Com 10/31/21 11/01/21 11/02/21 06:00 08:42 07:59 WBC RBC Hgb Hct MCV MCH MCHC RDW Plt Count MPV Immature Gran % (Auto) Neut % (Auto) Lymph % (Auto) Rains % (Auto) Eos % (Auto) Baso % (Auto) Lymph # (Auto) Rains # (Auto) Eos # (Auto) Baso # (Auto) Abs Immat Gran (auto) Absolute Neuts (auto) Absolute Nucleated RBC Nucleated RBC % (auto) Sodium 144 144 141 Potassium 4.2 4.4 4.3 Chloride 113 H 111 H 110 H Carbon Dioxide 20 L 20 L 19 L Anion Gap 15 17 16 BUN 31 H 32 H 30 H Creatinine 3.00 H 3.01 H 2.82 H Estim Creat Clear Calc 18.8 18.8 20.0 Estimated GFR 20 20 22 Random Glucose 156 H D 183 H 202 H Calcium 8.6 9.0 8.6 Magnesium Total Bilirubin AST ALT Alkaline Phosphatase Total Protein Albumin Urine Color Urine Appearance Urine pH Ur Specific [place] Urine Protein Urine Glucose (UA) Urine Ketones Urine Blood Urine Nitrite Ur Leukocyte Esterase Urine RBC Urine WBC Ur Squamous Epith Cells Urine Bacteria Hyaline Casts Ur Random Sodium Urine Creatinine COVID-19 ([facility]) COVID-19 Clin Com Airway Mallampati Class: II TM Dist: >3cm Loose/Missing/Broken Teeth: No Heart: RRR Lungs: CTA Assessment and Plan Assessment Anesthesia Assessment: Anesthesia Plan Discussed and Chart Reviewed Final Anesthetic Review Family History of Problems with Anesthesia: No History of Problems with Anesthesia: No NPO: Yes ASA Class: III and Emergency Final Preanesthetic Review: No Changes in Pt Med Stat, Meds/Allgs Chart Reviewed, Consent Obtained/Reviewed and Anes Risks/Benef Reviewed Patient Risk: Intermediate Procedure Risk: Low Anesthetic Plan Anesthetic Plan: GA Disposition: Standard PACU
--- NOTE | 2021-11-02 16:26 | MHC.SHP ---
Pre-Procedural Eval Section A Date of Service: 11/02/21 The patient is an INPATIENT: Yes Changes since office visit: No Cold of Flu in the past 2 weeks, No New Medical Problems, No Changes in Medication and No Patient answered all questions The History & Physical has been completed within 30 days and I have reviewed it.: Yes Section B Chief Complaint: ESTUARDO Details of Present Illness: left hydro ureteral nephrosis Relevant Family History (Specify if Yes): No Present Medications: see Short Stay Collaborative assessment Medical History: No relevant PMH History of Previous Operations: Relevant previous surgery/procedure and date(s) Allergies: Allergies Allergy/AdvReac Type Severity Reaction Status Date / Time erythromycin base Allergy Severe TREMORS Verified 08/26/20 12:00 [ERYTHROMYCIN BASE] morphine [MORPHINE] Allergy Severe HALLUCINATI Verified 08/26/20 12:00 ONS acetaminophen [From Percocet] AdvReac Intermediate agitation Verified 10/15/21 10:59 oxycodone [From Percocet] AdvReac Intermediate agitation Verified 10/15/21 10:59 prochlorperazine AdvReac dystonia Verified 10/15/21 10:59 [From Compazine] Review of Systems Sugical H&P ROS: Negative: Constitution, Cardiovascular, Respiratory, Neurological, Psychiatric, Hem-Onc, Allergic/Immunologic, Gastrointestinal, Genitourinary, Musculoskeletal, Integumentary, Endocrine and Eyes/Ears/Nose/Throat Exam Surgical H&P Exam: Normal: HEENT, Normal: Heart, Normal: Lungs, Normal: Extremities, Normal: Abdomen, Normal: Skin and Normal: Neurological Plan Diagnosis/Plan: Unchanged ( cystoscopy, left retrograde, left stent placement) I have reviewed the history and physical and performed a pertinent physical examination on my patient. No changes have occurred unless specified.
[2021-11-02 16:29] LABS: Glucose, Whole Blood 146 mg/dL (60-115)
--- NOTE | 2021-11-02 16:33 | P.PNIM_ITS ---
Subjective Subjective Date of Service: 11/03/21 Interval History: estuardo , nephrolithiasis. Review of Systems Mental status improved , Denies any nausea vomiting or abdominal pain. Physical Exam Vital Signs: Vital Signs: Last Vital Signs Temp 98.6 F 11/02/21 16:23 Pulse 64 11/02/21 16:23 Resp 18 11/02/21 16:23 BP 164/85 H 11/02/21 16:23 Pulse Ox 96 11/02/21 16:23 O2 Del Method 11/02/21 16:23 BMI result Body Mass Index 22.2 ?Appearance: Aawake .? not in distress.? cvs: rrr, [id number] . res: clear to auscultation ,no rhonchii or wheezing abd: no rebound or guarding ,abd pain improving, bs present. ext pulses present , no cyanosis. neuro: nonfocal. Objective Data Active Medications Acetaminophen (Acetaminophen 325 Mg Tablet) 650 mg PO Q6H PRN PRN Reason: Pain, Mild (Pain Scale 1-3) Amlodipine Besylate (Amlodipine Besylate 5 Mg Tablet) 5 mg PO BID [facility]; Protocol Last Admin: 11/02/21 08:05 Dose: 5 mg Documented By: BILLY Atorvastatin Calcium (Atorvastatin Calcium 10 Mg Tablet) 10 mg PO BEDTIME [facility] Last Admin: 11/01/21 20:35 Dose: 10 mg Documented By: AUDRA Calcium Carbonate (Calcium Carbonate 500 Mg Tablet) 1,000 mg PO BID [facility] Last Admin: 11/02/21 08:05 Dose: 1,000 mg Documented By: BILLY Carvedilol (Carvedilol 25 Mg Tablet) 25 mg PO BID [facility]; Protocol Last Admin: 11/02/21 08:05 Dose: 25 mg Documented By: BILLY Dipyridamole/Aspirin (Aspirin/Dipyridamole Er 25/200 Cpmp.12hr) 1 cap PO BID [facility] Last Admin: 11/02/21 07:54 Dose: Not Given Documented By: BILLY Non-Admin Reason: hold for surgery Duloxetine HCl (Duloxetine Hcl 30 Mg Capsule.) 30 mg PO DAILY [facility] Last Admin: 11/02/21 08:05 Dose: 30 mg Documented By: BILLY Enoxaparin Sodium (Enoxaparin Sodium 30 Mg/0.3 Ml Syringe) 30 mg SUBCUT Q24H [facility] Last Admin: 10/30/21 00:42 Dose: Not Given Documented By: FAREED Non-Admin Reason: Patient Refused Hydralazine HCl (Hydralazine Hcl 50 Mg Tablet) 50 mg PO BID [facility]; Protocol Last Admin: 11/02/21 08:05 Dose: 50 mg Documented By: BILLY Lactated Ringer's (Lr) 1,000 mls @ 80 mls/hr IVCONT .[id number] [facility] Last Admin: 11/02/21 16:32 Dose: 80 mls/hr Documented By: HIPOLITO Melatonin (Melatonin 3 Mg Tablet) 6 mg PO BEDTIME PRN PRN Reason: Insomnia Multivitamins/Vitamin C (Multivitamin Tablet) 1 tab PO DAILY [facility] Last Admin: 11/02/21 08:18 Dose: Not Given Documented By: BILLY Non-Admin Reason: NPO Olanzapine (Olanzapine 2.5 Mg Tablet) 2.5 mg PO BID PRN PRN Reason: agitation Ondansetron HCl (Ondansetron Hcl 4 Mg/2 Ml Vial) 4 mg IVPUSH Q8H PRN PRN Reason: Nausea and Vomiting Pharmacy Consult (Consult Rx Perform Med Rec) 1 each MISCELLANE ONCE PRN PRN Reason: Consult order Senna (Sennosides 8.6 Mg Tablet) 17.2 mg PO BEDTIME PRN PRN Reason: Constipation Sodium Bicarbonate (Sodium Bicarbonate 650 Mg Tablet) 650 mg PO BID [facility] Last Admin: 11/02/21 08:05 Dose: 650 mg Documented By: BILLY Sodium Chloride (0.9 % Sodium Chloride Flush 3 Ml Syringe) 3 ml IVFLUSH QSHIFT [facility] Last Admin: 11/02/21 08:05 Dose: Not Given Documented By: BILLY Non-Admin Reason: IV Running Labs CBC & Chem 7: 10/31/21 06:00 11/02/21 07:59 Labs: Laboratory Results - last 24 hr 11/02/21 11/02/21 07:59 16:26 Anion Gap 16 Estim Creat Clear Calc 20.0 Estimated GFR 22 POC Glucose 146 H Random Glucose 202 H Calcium 8.6 Assessment and Plan (1) Pyuria: Status: Acute (2) Agitation: Status: Acute (3) Chronic post-traumatic stress disorder (PTSD): Status: Acute (4) ESTUARDO (acute kidney injury): Status: Acute Plan 80-year-old male with a pertinent history of posttraumatic stress disorder, chronic kidney disease stage 4,, essential hypertension, history of colon cancer, CVA, history of recurrent nephrolithiasis who was brought to the emergency department by his due to agitation, being admitted for evaluation and management of acute kidney injury # Acute kidney injury on chronic kidney disease stage 4. slowly improving continue gentle hydration #Hematuria with pyuria-possible related? history of recurrent nephrolithiasis ?abdominal pelvis CT scan:.There are nonobstructing left renal calculi with chronic left-sided hydronephrosis with dilated ureter which does not appear to be secondary to calculus disease, but probable pelvic scarring from prior surgery and adhesions urology eval -need urologic procedure sirena m, npo past midnight #intial Delirum episode possible multifactorial -recent stress at home related , posttraumatic stress disorder, pain possible related to nephrolithiasis: improved to baseline Unclear if this is baseline, unable to contact at this time.? ?continue home duloxetine.? Use Zyprexa p.r.n. for agitation and avoid Haldol due to QT prolongation. psych eval noted -continue zyprexa. # hypertension uncontrolled : seems improving -likely due to agitation.? Continue home medications, hydralazine, amlodipine, coreg.? Holding lisinopril the setting of ESTUARDO #History of CVA-on Aggrenox and statin #? History of colon cancer -outpatient follow PT -str Diet:? Cardiac diet DVT prophylaxis:?hold now Lovenox 30 mg daily due to hematuria,mech devices Full code need for inpatient:IV crystalloid resuscitation,need urologic procedure Quality Stroke Does the patient have a stroke diagnosis?: No VTE Prior VTE?: No VTE Risk Level:: Medical - moderate - high VTE Device Contraindication: N/A - Device Ordered VTE Drug Contraindication: N/A - Med Ordered
--- NOTE | 2021-11-02 17:28 | W.PM.OPN ---
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 Anesthesia was administered per protocol. The patient was placed in modified dorsal lithotomy position and prepped and draped in a sterile fashion. A safety pause time-out was performed. Laterality of procedure and antibiotics were confirmed, appropriate imaging was available A 22 Guyanese cystoscope was introduced per urethra. No abnormality was noted of urethra or bladder. Both ureteric orifices were seen in a normal position. The left ureter was cannulated with an open ended catheter and a retrograde examination was performed. hydroureteronephrosis down to the pelvic area with hooking secondary to medialization which appears to be in result of prior surgery and radiation.. A Sensor guidewire was placed under fluoroscopy and a good coil was seen within the renal pelvis. A 6 x 24 cm double J stent was advanced over the wire and up to the level of the renal pelvis under fluoroscopic and direct visualization. The stent was seen with appropriate coil within the renal pelvis and in the bladder after deployment. The patient tolerated the procedure well and was transferred in a stable condition to the recovery area. Pathology: ureteric deviation secondary to pelvic procedure and radiation Drains: drains above
--- NOTE | 2021-11-02 19:12 | P.PNNP_ITS ---
Subjective Subjective Date of Service: 11/02/21 Interval history: estuardo , nephrolithiasis. Physical Exam Vital Signs: Vital Signs: Last Vital Signs Temp 97.8 F 11/02/21 18:05 Pulse 62 11/02/21 18:05 Resp 17 11/02/21 18:05 BP 156/76 H 11/02/21 18:05 Pulse Ox 95 11/02/21 18:05 O2 Del Method 11/02/21 18:05 O2 Flow Rate 4 11/02/21 17:35 BMI result Body Mass Index 22.2 Const: General: comfortable Orientation/consciousness: patient oriented x3 HEENT: Head: Yes normocephalic Neck: Neck: Yes no JVD Cardio: Jugular venous distension: no JVD Rate: regular rate GI: Auscultation: normal bowel sounds Neuro: General: patient oriented x3 Extrem: General: Yes no clubbing, cyanosis or edema Objective Data Labs CBC & Chem 7: 10/31/21 06:00 11/02/21 07:59 Labs: Laboratory Results - last 24 hr 11/02/21 11/02/21 07:59 16:26 Sodium 141 Potassium 4.3 Chloride 110 H Carbon Dioxide 19 L Anion Gap 16 BUN 30 H Creatinine 2.82 H Estim Creat Clear Calc 20.0 Estimated GFR 22 POC Glucose 146 H Random Glucose 202 H Calcium 8.6 Microbiology Microbiology Results: Microbiology 10/29/21 18:42 Urine clean catch - Urine cowart top Urine Culture - Final No growth. Procedures Date of Service Date of Service: 11/02/21 Assessment & Plan Assessment and plan (1) Hematuria: Status: Acute (2) ESTUARDO (acute kidney injury): Status: Acute Assessment and Plan: 1. ESTUARDO: Obs uropathy of L kidney; Scr grad decr but still not at bsl. Will follow post procedure. 2. CKD 4; BSL SCr 2.0-2.5 3. L [place]: urol evaluating 4. HTN Time Spent With Patient Time: Total time spent is greater than 50% in coordination of care (as documented) at patient's floor/unit and/or counseling patient: Progress Note: Quality Stroke Does the patient have a stroke diagnosis?: No
[2021-11-02] MEDS: Enoxaparin Sodium 30 MG/0.3 ML SYRINGE SUBCUT (19:50)
[2021-11-02] MEDS: Atorvastatin Calcium 10 MG TABLET PO (19:50)
[2021-11-03] VITALS (7 sets, daily range): BP systolic 124–180; BP diastolic 71–88; PULSE 68–74; RESP 17–19; TEMP 36.1–36.7; O2SAT 95–96
[2021-11-03] MEDS: Acetaminophen 325 MG TABLET 650 MG PO ×2 (06:07→14:15)
[2021-11-03] MEDS: amLODIPine Besylate 5 MG TABLET PO ×2 (08:55→19:55)
[2021-11-03] MEDS: DULoxetine HCl 30 MG CAPSULE.DR PO (08:55)
[2021-11-03] MEDS: carvediloL 25 MG TABLET PO ×2 (08:56→19:55)
[2021-11-03] MEDS: Multivitamin TABLET 1 TAB PO (08:56)
[2021-11-03] MEDS: Sodium Bicarbonate 650 MG TABLET PO ×2 (08:56→19:55)
[2021-11-03] MEDS: hydrALAZINE HCl 50 MG TABLET PO ×2 (08:56→19:55)
--- NOTE | 2021-11-03 11:13 | MHC.CM.PN ---
Addendum entered by Neeta Saunders RN 11/03/21 12:00: no bed offers at time of this note, cm met w/pt and at bedside and pt and both [facility] d/t pt's PTSD from service, per previous cm pt has [facility] benefit [facility] Original Note: NO BED OFFERS, REFERRAL EXPANDED TO SEE IF HE CAN GO ON MEDICARE BENEFIT. CM WILL CONT TO FOLLOW
--- NOTE | 2021-11-03 11:15 | P.PNIM_ITS ---
Subjective Subjective Date of Service: 11/03/21 Interval History: estuardo , nephrolithiasis. Review of Systems Mental status improved , Denies any nausea vomiting or abdominal pain. no new events Physical Exam Vital Signs: Vital Signs: Last Vital Signs Temp 98.1 F 11/03/21 07:40 Pulse 69 11/03/21 10:13 Resp 18 11/03/21 07:40 BP 147/71 H 11/03/21 10:13 Pulse Ox 96 11/03/21 07:40 O2 Del Method 11/03/21 07:40 O2 Flow Rate 4 11/02/21 17:35 BMI result Body Mass Index 22.2 Appearance: Aawake .? not in distress.? cvs: rrr, [id number] . res: clear to auscultation ,no rhonchii or wheezing abd: no rebound or guarding ,abd pain improving, bs present. ext pulses present , no cyanosis. neuro: nonfocal. Objective Data Active Medications Acetaminophen (Acetaminophen 325 Mg Tablet) 650 mg PO Q6H PRN PRN Reason: Pain, Mild (Pain Scale 1-3) Last Admin: 11/03/21 06:07 Dose: 650 mg Documented By: JACKELYN Amlodipine Besylate (Amlodipine Besylate 5 Mg Tablet) 5 mg PO BID [facility]; Protocol Last Admin: 11/03/21 08:55 Dose: 5 mg Documented By: MICHELA Atorvastatin Calcium (Atorvastatin Calcium 10 Mg Tablet) 10 mg PO BEDTIME [facility] Last Admin: 11/02/21 19:50 Dose: 10 mg Documented By: PRAVEEN Calcium Carbonate (Calcium Carbonate 500 Mg Tablet) 1,000 mg PO BID [facility] Last Admin: 11/03/21 08:56 Dose: 1,000 mg Documented By: MICHELA Carvedilol (Carvedilol 25 Mg Tablet) 25 mg PO BID [facility]; Protocol Last Admin: 11/03/21 08:56 Dose: 25 mg Documented By: MICHELA Dipyridamole/Aspirin (Aspirin/Dipyridamole Er 25/200 Cpmp.12hr) 1 cap PO BID [facility] Last Admin: 11/03/21 09:56 Dose: 1 cap Documented By: MICHELA Comments: ok to give per primary RN Duloxetine HCl (Duloxetine Hcl 30 Mg Capsule.) 30 mg PO DAILY [facility] Last Admin: 11/03/21 08:55 Dose: 30 mg Documented By: MICHELA Enoxaparin Sodium (Enoxaparin Sodium 30 Mg/0.3 Ml Syringe) 30 mg SUBCUT Q24H [facility] Last Admin: 11/02/21 19:50 Dose: 30 mg Documented By: PRAVEEN Hydralazine HCl (Hydralazine Hcl 50 Mg Tablet) 50 mg PO BID [facility]; Protocol Last Admin: 11/03/21 08:56 Dose: 50 mg Documented By: MICHELA Melatonin (Melatonin 3 Mg Tablet) 6 mg PO BEDTIME PRN PRN Reason: Insomnia Multivitamins/Vitamin C (Multivitamin Tablet) 1 tab PO DAILY [facility] Last Admin: 11/03/21 08:56 Dose: 1 tab Documented By: MICHELA Olanzapine (Olanzapine 2.5 Mg Tablet) 2.5 mg PO BID PRN PRN Reason: agitation Ondansetron HCl (Ondansetron Hcl 4 Mg/2 Ml Vial) 4 mg IVPUSH Q8H PRN PRN Reason: Nausea and Vomiting Pharmacy Consult (Consult Rx Perform Med Rec) 1 each MISCELLANE ONCE PRN PRN Reason: Consult order Senna (Sennosides 8.6 Mg Tablet) 17.2 mg PO BEDTIME PRN PRN Reason: Constipation Sodium Bicarbonate (Sodium Bicarbonate 650 Mg Tablet) 650 mg PO BID [facility] Last Admin: 11/03/21 08:56 Dose: 650 mg Documented By: MICHELA Sodium Chloride (0.9 % Sodium Chloride Flush 3 Ml Syringe) 3 ml IVFLUSH QSHIFT [facility] Last Admin: 11/03/21 09:00 Dose: Not Given Documented By: MICHELA Non-Admin Reason: IV Running Labs CBC & Chem 7: 10/31/21 06:00 11/03/21 10:41 Labs: Laboratory Results - last 24 hr 11/02/21 16:26 POC Glucose 146 H Assessment and Plan (1) Diabetes type 2, controlled: Status: Acute (2) ESTUARDO (acute kidney injury): Status: Acute Plan 80-year-old male with a pertinent history of posttraumatic stress disorder, chronic kidney disease stage 4,, essential hypertension, history of colon cancer , CVA, history of recurrent nephrolithiasis who was brought to the emergency department by his due to agitation, being admitted for evaluation and management of acute kidney injury # Acute kidney injury on chronic kidney disease stage 4. improving, basleine cr between 2-2.5 #Hematuria with pyuria-possible related? history of recurrent nephrolithiasis ?abdominal pelvis CT scan:.There are nonobstructing left renal calculi with chronic left-sided hydronephrosis with dilated ureter which does not appear to be secondary to calculus disease, but probable pelvic scarring from prior surgery and adhesions urology eval -s/p cystoscopy, left retrograde, left stent placement. bmp noted-nephro following #intial Delirum episode possible multifactorial -recent stress at home related , posttraumatic stress disorder, pain possible related to nephrolithiasis: improved to baseline Unclear if this is baseline, unable to contact at this time.? ?continue home duloxetine.? Use Zyprexa p.r.n. for agitation and avoid Haldol due to QT prolongation. psych eval noted -continue zyprexa. # hypertension uncontrolled : seems improving -likely due to agitation.? Continue home medications, hydralazine, amlodipine, coreg.? Holding lisinopril the setting of ESTUARDO #History of CVA-on Aggrenox and statin #? History of colon cancer -outpatient follow PT -str hx of dm type 2: hyperglycemia-possible reletaed to diet:chnaged to dm diet Hbaic levels fs with lsiding scale coverage. Diet:? Cardiac diet DVT prophylaxis:?hold now Lovenox 30 mg daily due to hematuria,mech devices Full code need for inpatient:estuardo on hydration, dm with hyperglycemia,awaiting placement Quality Stroke Does the patient have a stroke diagnosis?: No VTE Prior VTE?: No VTE Risk Level:: Medical - moderate - high VTE Device Contraindication: N/A - Device Ordered VTE Drug Contraindication: N/A - Med Ordered
[2021-11-03 11:40] LABS: Anion Gap 15 (12-20); Blood Urea Nitrogen 30 mg/dL (9-16); Calcium 8.4 mg/dL (8.4-10.2); Carbon Dioxide 22 mmol/L (22-29); Chloride 107 mmol/L (96-108); Creatinine Clr Calc Pharmacy 19.4; Estimated Glomerular Filt Rate 21; Glucose Random 385 mg/dL (60-115); Potassium 4.1 mmol/L (3.3-5.1); Sodium 140 mmol/L (135-145)
[2021-11-03 11:58] LABS: Glucose, Whole Blood 359 mg/dL (60-115)
[2021-11-03] MEDS: Lactated Ringers 1,000 ML 80 ML IVCONT (13:54)
[2021-11-03 16:31] LABS: Glucose, Whole Blood 331 mg/dL (60-115)
[2021-11-03] MEDS: Insulin Lispro 100 UNIT/ML 3 ML VIAL SUBCUT ×2 (16:41→20:05)
--- NOTE | 2021-11-03 19:44 | HO.POSTANES ---
Post Anesthesia Evaluation Post Anesthesia Evaluation Vital Signs: Vital Signs Temp Pulse Resp BP Pulse Ox O2 Del Method 11/03/21 19:36 97.8 F 68 19 180/88 H 95 Room Air 11/03/21 15:59 97.6 F 74 17 124/82 96 Room Air 11/03/21 12:09 69 147/71 H 11/03/21 10:13 69 147/71 H Anesthesia: Monitored Mental Status: Awake Pain Control: Satisfactory Nausea/Vomiting: None Hydration: Adequate Anesthesia-Related Issues: No Anes. Related Issues
[2021-11-03 19:52] LABS: Glucose, Whole Blood 185 mg/dL (60-115)
[2021-11-03] MEDS: Enoxaparin Sodium 30 MG/0.3 ML SYRINGE SUBCUT (19:55)
[2021-11-03] MEDS: Atorvastatin Calcium 10 MG TABLET PO (19:55)
[2021-11-04] VITALS (9 sets, daily range): BP systolic 150–182; BP diastolic 71–88; PULSE 64–73; RESP 17–19; TEMP 36–37.1; O2SAT 94–98
[2021-11-04] MEDS: Lactated Ringers 1,000 ML 80 ML IVCONT (02:57)
[2021-11-04] MEDS: Acetaminophen 325 MG TABLET 650 MG PO ×3 (04:06→17:46)
[2021-11-04 07:01] LABS: Anion Gap 16 (12-20); Blood Urea Nitrogen 33 mg/dL (9-16); Calcium 8.3 mg/dL (8.4-10.2); Carbon Dioxide 21 mmol/L (22-29); Chloride 108 mmol/L (96-108); Creatinine Clr Calc Pharmacy 19.5; Estimated Glomerular Filt Rate 21; Glucose Random 186 mg/dL (60-115); Sodium 141 mmol/L (135-145)
[2021-11-04 07:29] LABS: Glucose, Whole Blood 186 mg/dL (60-115)
[2021-11-04] MEDS: Insulin Lispro 100 UNIT/ML 3 ML VIAL SUBCUT ×4 (07:56→21:52)
[2021-11-04] MEDS: Sodium Bicarbonate 650 MG TABLET PO ×2 (07:56→21:52)
[2021-11-04] MEDS: DULoxetine HCl 30 MG CAPSULE.DR PO (07:57)
[2021-11-04] MEDS: amLODIPine Besylate 5 MG TABLET PO ×2 (07:57→21:51)
[2021-11-04] MEDS: carvediloL 25 MG TABLET PO ×2 (07:57→22:26)
[2021-11-04] MEDS: Multivitamin TABLET 1 TAB PO (07:57)
[2021-11-04] MEDS: hydrALAZINE HCl 50 MG TABLET PO ×2 (07:57→21:52)
[2021-11-04 11:40] LABS: Glucose, Whole Blood 210 mg/dL (60-115)
--- NOTE | 2021-11-04 12:32 | P.PNIM_ITS ---
Subjective Subjective Date of Service: 11/04/21 Interval History: estuardo , nephrolithiasis. Review of Systems Mental status improved , no new events Denies any fever or nausea or vomiting or abdominal pain. fs improving Physical Exam Vital Signs: Vital Signs: Last Vital Signs Temp 96.8 F 11/04/21 11:44 Pulse 68 11/04/21 11:08 Resp 18 11/04/21 11:08 BP 170/79 H 11/04/21 11:08 Pulse Ox 98 11/04/21 11:08 O2 Del Method 11/04/21 11:08 O2 Flow Rate 4 11/02/21 17:35 BMI result Body Mass Index 22.2 ?Appearance: Aawake .? not in distress.? cvs: rrr, [id number] . res: clear to auscultation ,no rhonchii or wheezing abd: no rebound or guarding ,abd pain improving, bs present. ext pulses present , no cyanosis. neuro: nonfocal. Objective Data Active Medications Acetaminophen (Acetaminophen 325 Mg Tablet) 650 mg PO Q6H PRN PRN Reason: Pain, Mild (Pain Scale 1-3) Last Admin: 11/04/21 11:17 Dose: 650 mg Documented By: RICHY Amlodipine Besylate (Amlodipine Besylate 5 Mg Tablet) 5 mg PO BID [facility]; Protocol Last Admin: 11/04/21 07:57 Dose: 5 mg Documented By: RICHY Atorvastatin Calcium (Atorvastatin Calcium 10 Mg Tablet) 10 mg PO BEDTIME [facility] Last Admin: 11/03/21 19:55 Dose: 10 mg Documented By: FAMILIA Calcium Carbonate (Calcium Carbonate 500 Mg Tablet) 1,000 mg PO BID [facility] Last Admin: 11/04/21 07:57 Dose: 1,000 mg Documented By: RICHY Carvedilol (Carvedilol 25 Mg Tablet) 25 mg PO BID [facility]; Protocol Last Admin: 11/04/21 07:57 Dose: 25 mg Documented By: RICHY Dextrose (Dextrose 50 % 25 Gm/50 Ml Syringe) 25 gm IVPUSH Q15M PRN; Protocol PRN Reason: per Hypoglycemia Standing Ord. Dipyridamole/Aspirin (Aspirin/Dipyridamole Er 25/200 Cpmp.12hr) 1 cap PO BID [facility] Last Admin: 11/04/21 07:56 Dose: 1 cap Documented By: RICHY Duloxetine HCl (Duloxetine Hcl 30 Mg Capsule.Dr) 30 mg PO DAILY [facility] Last Admin: 11/04/21 07:57 Dose: 30 mg Documented By: RICHY Enoxaparin Sodium (Enoxaparin Sodium 30 Mg/0.3 Ml Syringe) 30 mg SUBCUT Q24H [facility] Last Admin: 11/03/21 19:55 Dose: 30 mg Documented By: FAMILIA Glucose (Glucose Gel 15 Gm Gel..Gram.) 15 gm PO Q15M PRN; Protocol PRN Reason: per Hypoglycemia Standing Ord. Hydralazine HCl (Hydralazine Hcl 50 Mg Tablet) 50 mg PO BID [facility]; Protocol Last Admin: 11/04/21 07:57 Dose: 50 mg Documented By: RICHY Insulin Human Lispro (Insulin Lispro 100 Unit/Ml 3 Ml Vial) 0 unit SUBCUT QIDACHS [facility]; Protocol Last Admin: 11/04/21 12:00 Dose: 4 unit Documented By: RICHY Melatonin (Melatonin 3 Mg Tablet) 6 mg PO BEDTIME PRN PRN Reason: Insomnia Multivitamins/Vitamin C (Multivitamin Tablet) 1 tab PO DAILY [facility] Last Admin: 11/04/21 07:57 Dose: 1 tab Documented By: RICHY Olanzapine (Olanzapine 2.5 Mg Tablet) 2.5 mg PO BID PRN PRN Reason: agitation Ondansetron HCl (Ondansetron Hcl 4 Mg/2 Ml Vial) 4 mg IVPUSH Q8H PRN PRN Reason: Nausea and Vomiting Pharmacy Consult (Consult Rx Perform Med Rec) 1 each MISCELLANE ONCE PRN PRN Reason: Consult order Senna (Sennosides 8.6 Mg Tablet) 17.2 mg PO BEDTIME PRN PRN Reason: Constipation Sodium Bicarbonate (Sodium Bicarbonate 650 Mg Tablet) 650 mg PO BID [facility] Last Admin: 11/04/21 07:56 Dose: 650 mg Documented By: RICHY Sodium Chloride (0.9 % Sodium Chloride Flush 3 Ml Syringe) 3 ml IVFLUSH QSHIFT [facility] Last Admin: 11/04/21 07:48 Dose: Not Given Documented By: RICHY Non-Admin Reason: IV Running Labs CBC & Chem 7: 10/31/21 06:00 11/04/21 05:32 Labs: Laboratory Results - last 24 hr 09/24/22 09/24/22 09/25/22 16:26 19:39 05:32 Anion Gap 16 Estim Creat Clear Calc 19.5 Estimated GFR 21 POC Glucose 331 H 185 H Random Glucose 186 H D Calcium 8.3 L 11/04/21 11/04/21 07:24 11:09 Anion Gap Estim Creat Clear Calc Estimated GFR POC Glucose 186 H 210 H Random Glucose Calcium Assessment and Plan (1) Delirium: Status: Acute (2) ESTUARDO (acute kidney injury): Status: Acute (3) Diabetes type 2, controlled: Status: Acute Plan 80-year-old male with a pertinent history of posttraumatic stress disorder, chronic kidney disease stage 4,, essential hypertension, history of colon cancer, CVA, history of recurrent nephrolithiasis who was brought to the emergency department by his due to agitation, being admitted for evaluation and management of acute kidney injury # Acute kidney injury on chronic kidney disease stage 4. improving, basleine cr between 2-2.5, cr hovering around 2.8-2.9 ? new baseline. #Hematuria with pyuria-possible related? history of recurrent nephrolithiasis ?abdominal pelvis CT scan:.There are nonobstructing left renal calculi with chronic left-sided hydronephrosis with dilated ureter which does not appear to be secondary to calculus disease, but probable pelvic scarring from prior surgery and adhesions urology eval -s/p?cystoscopy, left retrograde, left stent placement. bmp noted-nephro following #intial Delirum episode possible multifactorial -recent stress at home related , posttraumatic stress disorder, pain possible related to nephrolithiasis: improved to baseline Unclear if this is baseline, unable to contact at this time.? ?continue home duloxetine.? Use Zyprexa p.r.n. for agitation and avoid Haldol due to QT prolongation. psych eval noted -continue zyprexa. # hypertension uncontrolled : seems improving -likely due to agitation.? Continue home medications, hydralazine, amlodipine, coreg.? Holding lisinopril the setting of ESTUARDO #History of CVA-on Aggrenox and statin #? History of colon cancer -outpatient follow PT -str hx of dm type 2: fs improving dm diet Hbaic levels fs with lsiding scale coverage. Diet:? Cardiac diet DVT prophylaxis:?hold now Lovenox 30 mg daily due to hematuria,mech devices Full code need for inpatient:awaiting placement Quality Stroke Does the patient have a stroke diagnosis?: No VTE Prior VTE?: No VTE Risk Level:: Medical - moderate - high VTE Device Contraindication: N/A - Device Ordered VTE Drug Contraindication: N/A - Med Ordered
[2021-11-04 15:44] LABS: Glucose, Whole Blood 281 mg/dL (60-115)
[2021-11-04 18:49] LABS: Glucose, Whole Blood 296 mg/dL (60-115)
[2021-11-04] MEDS: Atorvastatin Calcium 10 MG TABLET PO (21:52)
[2021-11-04] MEDS: Enoxaparin Sodium 30 MG/0.3 ML SYRINGE SUBCUT (21:52)
[2021-11-04] MEDS: 0.9 % Sodium Chloride Flush 3 ML SYRINGE IVFLUSH (21:53)
--- NOTE | 2021-11-04 22:12 | P.PNNP_ITS ---
Subjective Subjective Date of Service: 11/04/21 Interval history: estuardo , nephrolithiasis. Physical Exam Vital Signs: Vital Signs: Last Vital Signs Temp 98.1 F 11/04/21 18:40 Pulse 68 11/04/21 18:40 Resp 18 11/04/21 18:40 BP 162/77 H 11/04/21 18:40 Pulse Ox 96 11/04/21 18:40 O2 Del Method 11/04/21 18:40 O2 Flow Rate 4 11/02/21 17:35 BMI result Body Mass Index 22.2 Const: General: cooperative and no acute distress HEENT: Head: Yes normocephalic Resp: Auscultation: clear to auscultation bilaterally Cardio: Jugular venous distension: no JVD Rate: regular rate Rhythm: reg ular rhythm Heart sounds: S1 normal heart sound present and S2 normal heart sound present Extrem: General: Yes no clubbing, cyanosis or edema Objective Data Labs CBC & Chem 7: 10/31/21 06:00 11/04/21 05:32 Labs: Laboratory Results - last 24 hr 11/04/21 11/04/21 11/04/21 05:32 07:24 11:09 Sodium 141 Potassium 4.0 Chloride 108 Carbon Dioxide 21 L Anion Gap 16 BUN 33 H Creatinine 2.90 H Estim Creat Clear Calc 19.5 Estimated GFR 21 POC Glucose 186 H 210 H Random Glucose 186 H D Calcium 8.3 L 11/04/21 11/04/21 15:28 18:43 Sodium Potassium Chloride Carbon Dioxide Anion Gap BUN Creatinine Estim Creat Clear Calc Estimated GFR POC Glucose 281 H 296 H Random Glucose Calcium Microbiology Microbiology Results: Microbiology 10/29/21 18:42 Urine clean catch - Urine cowart top Urine Culture - Final No growth. Procedures Date of Service Date of Service: 11/04/21 Assessment & Plan Assessment and plan (1) ESTUARDO (acute kidney injury): Status: Acute Plan 1. ESTUARDO: Obs uropathy of L kidney; Scr grad decr but still not at bsl. Seems to be leveling off at 2.9. new BL? Monitor uop. Would hold additional ivf's. 2. CKD 4; BSL SCr 2.0-2.5 in the past. Monitor for ongoing recovery. would cont to hold acei. Avoidance of nsaids. 3. L [place]: urol evaluating 4. HTN - would increase hydralazine to tid. Time Spent With Patient Time: Total time spent is greater than 50% in coordination of care (as documented) at patient's floor/unit and/or counseling patient: Progress Note: Quality Stroke Does the patient have a stroke diagnosis?: No
[2021-11-05] VITALS (8 sets, daily range): BP systolic 131–151; BP diastolic 64–79; PULSE 60–71; RESP 16–19; TEMP 36.5–36.9; O2SAT 94–97
[2021-11-05] MEDS: Acetaminophen 325 MG TABLET 650 MG PO ×2 (06:29)
[2021-11-05 07:09] LABS: Glucose, Whole Blood 153 mg/dL (60-115)
[2021-11-05] MEDS: DULoxetine HCl 30 MG CAPSULE.DR PO (07:48)
[2021-11-05] MEDS: Sodium Bicarbonate 650 MG TABLET PO (07:48)
[2021-11-05] MEDS: Multivitamin TABLET 1 TAB PO (07:48)
[2021-11-05] MEDS: hydrALAZINE HCl 50 MG TABLET PO (07:48)
[2021-11-05] MEDS: carvediloL 25 MG TABLET PO (07:48)
[2021-11-05] MEDS: amLODIPine Besylate 5 MG TABLET PO (07:48)
[2021-11-05] MEDS: Insulin Lispro 100 UNIT/ML 3 ML VIAL SUBCUT ×2 (07:49→11:49)
[2021-11-05] MEDS: 0.9 % Sodium Chloride Flush 3 ML SYRINGE IVFLUSH (07:50)
[2021-11-05 09:46] LABS: Estimated Average Glucose 177 mg/dL; Hemoglobin A1c % 7.8 %
[2021-11-05] MEDS: Insulin Glargine,Hum.rec.anlog 100 UNIT/ML 10 ML VIAL SUBCUT (09:52)
--- NOTE | 2021-11-05 10:55 | PM.PNNEP ---
Subjective Subjective Date of Service: 11/05/21 Interval history: Seen adn examined,e vents noted Physical Exam Vital Signs: Vital Signs: Last Vital Signs Temp 98.3 F 11/05/21 07:49 Pulse 69 11/05/21 07:49 Resp 16 11/05/21 07:49 BP 151/72 H 11/05/21 07:49 Pulse Ox 97 11/05/21 07:38 O2 Del Method 11/05/21 07:38 O2 Flow Rate 4 11/02/21 17:35 BMI result Body Mass Index 22.2 Const: General: cooperative, healthy appearing, comfortable and no acute distress Orientation/consciousness: patient oriented x3 HEENT: Head: Yes normal to inspection and Yes normocephalic Face and sinus: Yes normal facial exam Mouth: Normal oral and palatal mucosa present and moist mucous membranes Teeth and gingiva: dentition normal Eyes: General: appearance normal, both eyes and all related structures Pupils: Equal, round and reactive pupils present Neck: Neck: Yes normal visual inspection, Yes full ROM, Yes trachea midline and Yes no JVD Chest: Chest palpation & inspection: normal inspection of the chest Resp: Effort & Inspection: normal respiratory effort, able to speak in complete sentences and no respiratory distress Auscultation: clear to auscultation bilaterally Cardio: Jugular venous distension: no JVD Rate: regular rate Rhythm: regular rhythm Heart sounds: S1 normal heart sound present and S2 normal heart sound present GI: Inspection: Yes normal to inspection Palpation (GI): Soft to palpation and nontender Auscultation: normal bowel sounds : General: Yes no CVA tenderness Back/Spine/Pelvis: Back: no CVA tenderness Cervical Spine: normal cervical lordosis Thoracic/Lumbar Spine: thoracic and lumbar spine normal to inspection Skin: General skin exam: no rashes or lesions noted Neuro: General: patient oriented x3, tone normal and moves all extremities Cranial nerves: Yes Equal, round and reactive pupils present Extrem: General: Yes normal to inspection, Yes capillary refill normal and Yes no clubbing, cyanosis or edema Psych: Speech and movement: Psychomotor agitation in speech present Objective Data Labs CBC & Chem 7: 10/31/21 06:00 11/04/21 05:32 Labs: Laboratory Results - last 24 hr 11/04/21 11/04/21 11/04/21 11:09 15:28 18:43 POC Glucose 210 H 281 H 296 H Estimat Average Glucose Hemoglobin A1c % 11/05/21 11/05/21 07:01 09:30 POC Glucose 153 H Estimat Average Glucose 177 Hemoglobin A1c % 7.8 Microbiology Microbiology Results: Microbiology 10/29/21 18:42 Urine clean catch - Urine cowart top Urine Culture - Final No growth. Procedures Date of Service Date of Service: 11/05/21 Assessment & Plan Assessment and plan (1) ESTUARDO (acute kidney injury): Status: Acute Plan 1. ESTUARDO: Obs uropathy of L kidney; Scr grad decr but still not at bsl. Seems to be leveling off at 2.9. new BL? 2. CKD 4; BSL SCr 2.0-2.5 in the past. Monitor for ongoing recovery. would cont to hold acei. Avoidance of nsaids. 3. L [place]: s/p cysto/stent 11/02 4. HTN REC: cont to track renal func; avoid NToxins; will need close outpt monitoring of renal func/CKD manangement ( I will arrange f/u as outpt) Time Spent With Patient Time: Total time spent is greater than 50% in coordination of care (as documented) at patient's floor/unit and/or counseling patient: Progress Note: Quality Stroke Does the patient have a stroke diagnosis?: No
[2021-11-05 11:15] LABS: Glucose, Whole Blood 247 mg/dL (60-115)
--- NOTE | 2021-11-05 11:30 | P.DS_ITS ---
DS: Providers Provider Date of Service: 11/05/21 Date of admission: 11/01/21 14:38 Primary care physician: Iveth Bryant MD Consults: 10/29/21 16:48 BHN [Consult to Crisis] Stat Reason for consultation: agitation, hx PTSD, throwing objects at home, called EMS 10/30/21 09:59 Consult to Psychiatry Routine Consulting Provider: Psych Covering Reason for consultation: mood dis Has provider been notified: No 10/30/21 10:00 Consult to Infectious Diseases Routine Consulting Provider: Veronika Kulkarni Reason for consultation: ams/recent pyelonephritis/hematuria/pyuria Has provider been notified: No 10/31/21 08:32 Consult to Nephrology Routine Consulting Provider: Tervor Moreland Reason for consultation: estuardo on ckd Has provider been notified: No DS: Diagnosis Discharge Diagnosis (1) ESTUARDO (acute kidney injury): Status: Acute (2) Hematuria: Status: Acute (3) Pyuria: Status: Acute (4) Delirium: Status: Acute (5) Agitation: Status: Acute (6) Diabetes type 2, controlled: Status: Acute DS: Summary Hospital Course Hospital Course: 80-year-old male with a pertinent history of posttraumatic stress disorder, chronic kidney disease stage 4,, essential hypertension, history of colon cancer, CVA, history of recurrent nephrolithiasis who was brought to the emergency department by his due to agitation.? Patient is a poor historian and does not know why he is in the hospital.? He keeps on repeating that he has PTSD and he served in the [place] War and his does not believe him.? He mentions that he has occasional outbursts with shouting episodes and his does not understand him.? He stated that his was the world's worst bitch .? As per EMS report patient had thrown objects around the home.? At the time of my evaluation, patient has no complaints.? He keeps on repeating himself and is disoriented to time and place.? Nursing staff reported that patient was shouting in the hallways and trying to hit bystanders. Of note patient was recently admitted and discharged on 10/18 with acute pyelonephritis with hydronephrosis.? He does have a history of recurrent kidney stones.? Patient was discharged with amoxicillin for Enterococcus faecalis. Hospital course: ESTUARDO on CKD: Improved with hydration creatinine is running around 2.8-2.9 range- possible new baseline, as per Nephro lisinopril is on hold. Please monitor BMP in rehab, consider outpatient nephrology evaluation before starting lisinopril. 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 Delirum episode possible multifactorial -recent stress at home related , posttraumatic stress disorder, pain possible related to nephrolithiasis. intially received on dose zyprexa , bur did not require any further since admission.discussed with psych -no further use of zyprexa recomended. moniter bmp dilma outpatient. dm type 2: fs improving , Hba1c levels ,continue dm diet,not on any dm meds at home medication list,fs with sliding scale coverage. consider outpatient oral hypoglycemic if needed. Seen by PT patient recommended subacute rehab. Patient will benefit from less than 30 day stay. plan: Monitor BMP closely Hold lisinopril until cleared by Nephrology. Monitor fingersticks closely as above. Patient is to follow-up with Nephrology and Urology out patiently. Above management discussed with the patient in detail length she understand and in agreement above plan, time spent 35 minute. Time Spent with Patient Time attestation: Total time spent providing and/or coordinating discharge services: Discharge coordination time: Greater than 30 minutes Quality: Safe Use of Opioids Does Pt have an Active Cancer Diagnosis on the Problem List?: No Quality: Stroke Does the patient have a stroke diagnosis?: No Physical Exam Vital Signs: Vital Signs: Last Vital Signs Temp 98.3 F 11/05/21 07:49 Pulse 69 11/05/21 07:49 Resp 16 11/05/21 07:49 BP 151/72 H 11/05/21 07:49 Pulse Ox 97 11/05/21 07:38 O2 Del Method 11/05/21 07:38 O2 Flow Rate 4 11/02/21 17:35 BMI result Body Mass Index 22.2 Appearance: A[place]ake .? not in distress.? cvs: rrr, [id number] . res: clear to auscultation ,no rhonchii or wheezing abd: no rebound or guarding ,abd pain improving, bs present. ext pulses present , no cyanosis. neuro: nonfocal. DS: Data Data Completed and Pending Labs on day of discharge: Laboratory Results - last 24 hr 11/04/21 11/04/21 11/04/21 11:09 15:28 18:43 POC Glucose 210 H 281 H 296 H Estimat Average Glucose Hemoglobin A1c % 11/05/21 11/05/21 11/05/21 07:01 09:30 11:07 POC Glucose 153 H 247 H Estimat Average Glucose 177 Hemoglobin A1c % 7.8 Additional Comments Additional comments: 16:26 19:39 05:32 Anion Gap ? ? ?16 Estim Creat Clear Calc ? ? ?19.5 Estimated GFR ? ? ?21 POC Glucose ?331 H ?185 H ? Random Glucose ? ? ?186 H D Calcium ? ? ?8.3 L ? 11/04/21 11/04/21 ? 07:24 11:09 Anion Gap ? ? Estim Creat Clear Calc ? ? Estimated GFR ? ? POC Glucose ?186 H ?210 H Random Glucose ? ? Calcium ? ? Discharge Plan Discharge Patient Disposition: Xfer SNF Discharge Diagnosis: possible estuardo on ckd , diabetes type 2,Delirum episode possible multifactorial . Referrals: Clement Kang MD [Physician] - 2 Weeks (follow up outpatiently) Iveth Bryant MD [Primary Care Provider] - 11/15/21 3:30 pm (You have appointment scheduled with PCP for follow up, call if you need to reschedule. ) Esteban Olivo MD [Physician] - 2 Weeks (follow up outpatient.) Discharge Medications: New insulin lispro [Humalog U-100 Insulin] 100 unit/mL Solution See Protocol subcut QIDACHS Qty: 1 0RF Protocol: Insulin Correction Scale Less than or equal to 110 ---- Give (units): 0 111 to 150 Give (units): 0 151 to 200 Give (units): 2 201 to 250 Give (units): 4 251 to 300 Give (units): 6 301 to 350 Give (units): 8 Greater than 350 Give (units): 10 Call MD if Blood Glucose > : 350 Continued tramadol 50 mg tablet 50 mg PO Q8H PRN (Reason: pain) Qty: 15 0RF aspirin-dipyridamole 25-200 mg Capsule, Er Multiphase 12 Hr 1 cap PO BID atorvastatin 10 mg Tablet 10 mg PO BEDTIME amlodipine 5 mg tablet 1 tab PO BID docusate sodium [Colace] 100 mg capsule 100 mg PO DAILY coenzyme Q10 [CoQ-10] 100 mg Capsule 300 mg PO DAILY multivitamin Tablet 1 tab PO DAILY famotidine 20 mg Tablet 20 mg PO BID ascorbic acid (vitamin C) [Vitamin C] 500 mg Tablet 1,000 mg PO BID calcium carbonate 650 mg calcium (1,625 mg) Tablet 1,300 mg PO BID duloxetine 30 mg capsule,delayed release(DR/EC) 1 cap PO BEDTIME cholecalciferol (vitamin D3) [Vitamin D3] 50 mcg (2,000 unit) Capsule 50 mcg PO DAILY melatonin 5 mg Capsule 10 mg PO BEDTIME PRN (Reason: Insomnia) B12 Active 1,000 mcg Tablet,Chewable 500 mcg PO DAILY sodium bicarbonate 650 mg tablet 1 tab PO BID zinc sulfate 50 mg zinc (220 mg) capsule 1 cap PO DAILY potassium chloride 20 mEq tablet,ER particles/crystals 1 tab PO DAILY carvedilol 25 mg tablet 1 tab PO BID Lactobacillus acidophilus 1 billion cell Tablet 2,000 mmu cells PO DAILY lisinopril 5 mg Tablet 5 mg PO BID acetaminophen 500 mg Tablet 1,000 mg PO BEDTIME PRN (Reason: Pain) Changed hydralazine 50 mg Tablet 50 mg PO TID Qty: 90 0RF Held lisinopril 5 mg tablet 1 tab PO BID Hold Instructions: Resume on 11/19/21. start only if cleared by nephrology Discharge Orders: Discharge Order (Routine); Ordered 11/05/21 Ordered By: Abran Gonzalez Diet: Advance to usual diet Activity on Discharge: As tolerated Stand Alone Forms: Patient Portal Discharge page Care Plan Goals: ESTUARDO on CKD: Improved with hydration creatinine is running around 2.8-2.9 range- possible new baseline, as per Nephro lisinopril is on hold. Please monitor BMP in rehab, consider outpatient nephrology evaluation before starting lisinopril. 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 Delirum episode possible multifactorial -recent stress at home related , posttraumatic stress disorder, pain possible related to nephrolithiasis. intially received on dose zyprexa , bur did not require any further since admission.discussed with psych -no further use of zyprexa recomended. moniter bmp dilma outpatient. dm type 2: fs improving , Hba1c levels ,continue dm diet,not on any dm meds at home medication list,fs with sliding scale coverage. consider outpatient oral hypoglycemic if needed. Health Concerns: as above. Plan of Treatment: Encourage hydration, moniter bmp closely outpatient. Assessment: as above.
--- NOTE | 2021-11-05 11:40 | MHC.CM.PN ---
Addendum entered by Humaira Bradshaw 11/05/21 13:46: PT WILL DC TO [facility]IA [facility] AT 1600 HOURS Original Note: CM MET WITH PT AND AT BEDSIDE THEY ARE AWARE PT IS CLEARED TO DC TODAY AND [facility] IS THE ONLY [facility] OFFERING A [facility] BED CM INFORMED THEM IT WOULD BE A PRIVATE ROOM PTS REVIEWED THE CAREPORT LISTING FOR THE FACILITY AND REPORTED BEING AGREEABLE PT HAD A PCR COVID SWAB AND WILL DC PENDING NEGATIVE RESULT
[2021-11-05 11:44] LABS: COVID-19 Test Negative (Negative); IDNOW Serial# 16C4AD1C
[2021-11-05 13:10] LABS: Influenza A PCR NEGATIVE (Negative); Influenza B PCR NEGATIVE (Negative); Resp Syncy Virus RNA Qual PCR NEGATIVE (Negative); SARS COV2 PCR INHOUSE NEGATIVE (Negative)
[2021-11-05 15:48] LABS: Glucose, Whole Blood 272 mg/dL (60-115)
== END 2021-11-05 17:01 | disposition skilled nursing facility (03) | DRG 660 ==
LOC: HO.ED 20:37 → HO.EDOVER 20:58 → HO.S3 11-01 07:16 → HO.EDOVER 11-01 09:13 → HO.S3 11-01 17:18
PROVIDERS: Nurse Practitioner Family; Urology; Admitting Provider Student in an Organized Health Care Education/Training Program; Emergency Provider Emergency Medicine; PCP Internal Medicine; Visit Provider Internal Medicine
PROC: 0T778DZ Dilation of Left Ureter with Intraluminal Device, Via Natural or Artificial Opening Endoscopic (ICD-10-PCS; principal; 2021-11-02 16:30)
DX: N13.30 Unspecified hydronephrosis (principal); F05 Delirium due to known physiological condition; N17.9 Acute kidney failure, unspecified; I16.0 Hypertensive urgency; F43.12 Post-traumatic stress disorder, chronic; Z20.822 Contact with and (suspected) exposure to COVID-19; Z86.73 Personal history of transient ischemic attack (TIA), and cerebral infarction without residual deficits; I12.9 Hypertensive chronic kidney disease with stage 1 through stage 4 chronic kidney disease, or unspecified chronic kidney disease; N18.4 Chronic kidney disease, stage 4 (severe); E11.22 Type 2 diabetes mellitus with diabetic chronic kidney disease; R31.9 Hematuria, unspecified; E11.65 Type 2 diabetes mellitus with hyperglycemia; T66.XXXA Radiation sickness, unspecified, initial encounter; Y84.2 Radiological procedure and radiotherapy as the cause of abnormal reaction of the patient, or of later complication, without mention of misadventure at the time of the procedure; Z93.3 Colostomy status; Z87.442 Personal history of urinary calculi; Z87.440 Personal history of urinary (tract) infections; Z85.038 Personal history of other malignant neoplasm of large intestine; Z88.5 Allergy status to narcotic agent; Z88.6 Allergy status to analgesic agent; Z88.8 Allergy status to other drugs, medicaments and biological substances; Z79.899 Other long term (current) drug therapy
CPT/HCPCS: 0241U; 36415; 74176; 80048; 80053; 81001; 81003; 82947; 83036; 83735; 84300; 85014; 85018; 85025; 85027; 87086; 87635; 93005; 96372; 97162; 97530; 99218; 99285; C1758; C1769; C2617; J0696; J1650; J3010; Q9967

== ENCOUNTER 2021-11-20 16:14 | Inpatient (IN) | payer OTHER, MEDICARE, SELFPAY ==
--- NOTE | ~2021-11-20 | US_ITS ---
EXAMINATION: US RETROPERITONEAL LIMITED (RENAL ONLY) CLINICAL INFORMATION: Assess existing stent in the left kidney. COMPARISON: CT abdomen and pelvis without contrast 10/04/2021. Ultrasound retroperitoneal limited (renal only) 10/15/2021. TECHNIQUE: Real-time imaging of the left kidney. FINDINGS: LEFT KIDNEY: 8.9 x 7.1 x 7.0 cm (SAG x AP x TRV). The kidney is normal in size, contour, and echogenicity. Renal cortical thickness is normal. No focal parenchymal lesions. A nephroureteral stent is noted terminating within the renal pelvis with moderate to severe persistent hydronephrosis. 5 mm nonobstructing midpole renal stone. US/US renal LT IMPRESSION: A nephroureteral stent is noted terminating within the left renal pelvis with moderate to severe persistent hydronephrosis. 5 mm nonobstructing midpole left renal stone.
--- NOTE | ~2021-11-20 | XR_ITS ---
EXAMINATION: XR CHEST CLINICAL INFORMATION: Chest pain COMPARISON: 10/04/2021 TECHNIQUE: Frontal view of the chest was obtained. FINDINGS: No acute finding. The cardiac silhouette is comparable to previous. There is no obvious failure or infiltrate. No effusion. The hilar regions are felt to be comparable. XR/XR chest 1V IMPRESSION: No acute finding.
[2021-11-20 16:33] VITALS: BP 131/66; BP 132/65; PULSE 60; PULSE 62; RESP 14; TEMP 36.8; O2SAT 95; O2SAT 97; BMI 22.4
--- NOTE | 2021-11-20 16:39 | ECG_ITS ---
Test Reason : COVID SYMPTOMS Blood Pressure : / mmHG Vent. Rate : 060 BPM Atrial Rate : 060 BPM P-R Int : 170 ms QRS Dur : 144 ms QT Int : 478 ms P-R-T Axes : 045 -71 055 degrees QTc Int : 478 ms Normal sinus rhythm Left anterior fascicular block RSR' or QR pattern in V1 suggests right ventricular conduction delay Right bundle branch block Abnormal ECG When compared with ECG of 29-OCT-2021 16:53, Premature atrial complexes are no longer Present Referred By: Freida Fischer Electronically Signed By:SHOSHANA CHEN MD
--- NOTE | 2021-11-20 16:40 | ED_ITS ---
HPI - Weakness General Chief complaint: General Medical Stated complaint: abnormal labs Time Seen by Provider: 11/20/21 16:26 History of Present Illness HPI Narrative: Patient is an 80-year-old male with a history of diabetes, chronic kidney disease, tested positive for COVID on November 16. Presented today with having decreased appetite. Patient is not on Paxlovid. Question patient's symptoms started 2 days prior to getting tested. Patient is actually over 5 days out at this point. No fever no chills no diaphoresis. Positive decrease in appetite. Patient denies any new shortness of breath. Does have some mild coughing congestion upper respiratory symptoms. Patient is vaccinated for COVID x2. No boosters. Related Data Home Medications Medication Instructions Recorded Confirmed amlodipine 5 mg tablet 1 tab PO BID 08/26/20 10/29/21 ascorbic acid (vitamin C) 500 mg 1,000 mg PO BID 08/26/20 10/29/21 tablet (Vitamin C) aspirin 25 mg-dipyridamole 200 mg 1 cap PO BID 08/26/20 10/29/21 capsule,ext.release 12 hr multiphase atorvastatin 10 mg tablet 10 mg PO BEDTIME 08/26/20 10/29/21 calcium carbonate 650 mg calcium 1,300 mg PO BID 08/26/20 10/29/21 (1,625 mg) tablet cholecalciferol (vitamin D3) 50 50 mcg PO DAILY 08/26/20 10/29/21 mcg (2,000 unit) capsule (Vitamin D3) coenzyme Q10 100 mg capsule 300 mg PO DAILY 08/26/20 10/29/21 (CoQ-10) docusate sodium 100 mg capsule 100 mg PO DAILY 08/26/20 10/29/21 (Colace) duloxetine 30 mg capsule,delayed 1 cap PO BEDTIME 08/26/20 10/29/21 release famotidine 20 mg tablet 20 mg PO BID 08/26/20 10/29/21 mecobalamin (vitamin B12) 1,000 500 mcg PO DAILY 08/26/20 10/29/21 mcg chewable tablet (B12 Active) melatonin 5 mg capsule 10 mg PO BEDTIME PRN Insomnia 08/26/20 10/29/21 multivitamin 1 tab PO DAILY 08/26/20 10/29/21 potassium chloride 20 mEq 1 tab PO DAILY 10/04/21 10/29/21 tablet,extended release(part/cryst) sodium bicarbonate 650 mg tablet 1 tab PO BID 10/04/21 10/29/21 zinc sulfate 50 mg zinc (220 mg) 1 cap PO DAILY 10/04/21 10/29/21 capsule Lactobacillus acidophilus 1 2,000 mmu cells PO DAILY 10/15/21 10/29/21 billion cell tablet carvedilol 25 mg tablet 1 tab PO BID 10/15/21 10/29/21 lisinopril 5 mg tablet 1 tab PO BID 10/15/21 10/29/21 acetaminophen 500 mg tablet 1,000 mg PO BEDTIME PRN Pain 10/29/21 10/29/21 lisinopril 5 mg tablet 5 mg PO BID 10/29/21 10/29/21 Previous Rx's Medication Instructions Recorded tramadol 50 mg tablet 50 mg PO Q8H PRN pain #15 tabs 10/25/21 hydralazine 50 mg tablet 50 mg PO TID #90 tabs 11/05/21 insulin lispro 100 unit/mL See Protocol subcut QIDACHS #1 mL 11/05/21 subcutaneous solution (Humalog U-100 Insulin) Allergies Allergy/AdvReac Type Severity Reaction Status Date / Time erythromycin base Allergy Severe TREMORS Verified 08/26/20 12:00 [ERYTHROMYCIN BASE] morphine [MORPHINE] Allergy Severe HALLUCINATI Verified 08/26/20 12:00 ONS acetaminophen [From Percocet] AdvReac Intermediate agitation Verified 10/15/21 10:59 oxycodone [From Percocet] AdvReac Intermediate agitation Verified 10/15/21 10:59 prochlorperazine AdvReac dystonia Verified 10/15/21 10:59 [From Compazine] Review of Systems Review of Systems: Positive generalized malaise positive decreased p.o. intake Yes all other systems are reviewed and are negative [facility] Past Medical History Attestation statement: The following information was validated with the patient. Medical History Agitation Cancer of kidney Chronic post-traumatic stress disorder (PTSD) Chronic UTI Colon cancer Colostomy in place Delirium Diabetes type 2, controlled Hematuria High cholesterol HTN (hypertension) Hydronephrosis Hydroureter Kidney stone PTSD (post-traumatic stress disorder) Pyuria Stroke Family History Family History Father Stroke Social History Social History Household Members: Spouse Housing: House Do you presently have visiting nurse or other home services: No Alcohol intake: never Patient Tobacco Use Status: Never used Tobacco Advance Directives: Yes Advance Directives on File: Yes Advance Directives Date on File: 10/15/21 service: Yes Current occupational status: retired Physical Exam Vital Signs: Vital Signs: Last Vital Signs Temp 98.3 F 11/20/21 16:33 Pulse 62 11/20/21 16:33 Resp 14 11/20/21 16:33 BP 132/65 11/20/21 16:33 Pulse Ox 97 11/20/21 16:33 O2 Del Method 11/20/21 16:33 BMI result Body Mass Index 22.4 Appearance: Alert. Oriented X3. No acute distress. Eyes: Pupils equal, round and reactive to light. ENT: Pharynx normal. Neck: Normal inspection. Neck supple. No lymph nodes noted. No crepitus CVS: Normal heart rate and rhythm. Pulses normal. Normal S1 and S2 Respiratory: No respiratory distress. Breath sounds normal. No Wheezing. No rales Abdomen: Soft and nontender. No rigidity. No distention. good BS x4 Skin: Skin warm and dry. Normal skin color. Normal skin turgor. Extremities: No lower extremity edema. Neurovascular intact to all extremities. No Lacerations. No Rash Neuro: Oriented X 3. No motor deficit. No sensory deficit. Moving all extermities. No slurred speech MDM - Weakness MDM Narrative Medical decision making narrative: Patient had elevated BUN and creatinine consistent with dehydration. Sent in for further evaluation as his creatinine is over 4. Baseline is in the 2 range. Will give IV fluids. Will admit for further evaluation. Currently in stable condition. Medical Records Attestation: I reviewed the patient's medical records. Lab Data Attestation: I reviewed the patient's lab results. Result diagrams: 11/20/21 16:56 11/20/21 16:56 Labs: Lab Results 11/20/21 11/20/21 11/20/21 Range/Units 16:56 16:56 16:56 WBC 6.7 (4.8-10.8) X10*3/uL RBC 4.18 L (4.60-5.80) X10*6/uL Hgb 11.1 L (14.0-18.0) g/dl Hct 34.7 L (42.0-52.0) % MCV 83.0 (80.0-98.0) fL MCH 26.6 L (27.0-33.0) pg MCHC 32.0 (31.0-36.0) g/dl RDW 15.6 (11.0-16.0) % Plt Count 265 (160-400) X10*3/uL MPV 10.2 (9.4-12.4) fL Immature Gran % (Auto) 0.9 H (0.0-0.4) % Neut % (Auto) 70.6 (45-73) % Lymph % (Auto) 17.7 L (20-40) % [place] % (Auto) 10.5 (2-11) % Eos % (Auto) 0.3 (0-4) % Baso % (Auto) 0.0 (0-2) % Lymph # (Auto) 1.2 (1.2-4.9) X10*3/uL [place] # (Auto) 0.7 (0.1-1.2) X10*3/uL Eos # (Auto) 0.0 (0.0-0.4) X10*3/uL Baso # (Auto) 0.0 (0.0-0.2) X10*3/uL Abs Immat Gran (auto) 0.06 H (0.00-0.03) X10*3/uL Absolute Neuts (auto) 4.7 (2.0-8.3) x10*3/uL Absolute Nucleated RBC 0.000 (0.0-0.012) X10*3/uL Nucleated RBC % (auto) 0.0 (0.0-0.2) /100WBC Sodium 143 (135-145) mmol/L Potassium 5.3 H D (3.3-5.1) mmol/L Chloride 115 H (96-108) mmol/L Carbon Dioxide 13 L (22-29) mmol/L Anion Gap 20 (12-20) BUN 64 H D (9-16) mg/dL Creatinine 4.82 H* (0.5-1.4) mg/dL Estim Creat Clear Calc 11.8 Estimated GFR 12 Random Glucose 160 H (60-115) mg/dL Calcium 8.5 (8.4-10.2) mg/dL COVID-19 (AMEYA) Positive A (Negative) COVID-19 Clin Com See Note Discharge Plan Discharge Clinical Impression: ESTUARDO (acute kidney injury), Diabetes type 2, controlled, Acute dehydration Patient Disposition: Admitted As Inpatient
[2021-11-20 17:02] LABS: Eosinophils Percent Auto 0.3 % (0-4); Hematocrit 34.7 % (42.0-52.0); Hemoglobin 11.1 g/dl (14.0-18.0); Imm Gran Abs Auto 0.06 X10*3/uL (0.00-0.03); Imm Gran Pct Auto 0.9 % (0.0-0.4); Lymphocytes Absolute Auto 1.2 X10*3/uL (1.2-4.9); Lymphocytes Percent Auto 17.7 % (20-40); MANUAL DIFF FLAG NO; Mean Corpuscular Hemoglobin 26.6 pg (27.0-33.0); Mean Platelet Volume 10.2 fL (9.4-12.4); Monocytes Absolute Auto 0.7 X10*3/uL (0.1-1.2); Monocytes Percent Auto 10.5 % (2-11); Neutrophils Absolute Auto 4.7 x10*3/uL (2.0-8.3); Neutrophils Percent Auto 70.6 % (45-73); Platelet Count 265 X10*3/uL (160-400); Red Blood Count 4.18 X10*6/uL (4.60-5.80); Red Cell Distribution Width 15.6 % (11.0-16.0); White Blood Count 6.7 X10*3/uL (4.8-10.8)
[2021-11-20 17:19] LABS: Blood Urea Nitrogen 64 mg/dL (9-16); Calcium 8.5 mg/dL (8.4-10.2); Creatinine Clr Calc Pharmacy 11.8; Estimated Glomerular Filt Rate 12; Glucose Random 160 mg/dL (60-115)
[2021-11-20 17:21] LABS: COVID-19 Test Positive (Negative)
[2021-11-20 17:27] LABS: Anion Gap 20 (12-20); Carbon Dioxide 13 mmol/L (22-29); Chloride 115 mmol/L (96-108); Potassium 5.3 mmol/L (3.3-5.1); Sodium 143 mmol/L (135-145)
[2021-11-20] MEDS: ondansetron HCL 4 MG/2 ML VIAL IVPUSH (17:49)
[2021-11-20] MEDS: 0.9 % Sodium Chloride 1,000 ML 999 ML IV (17:50)
--- NOTE | 2021-11-20 17:58 | PM.IMHP ---
History of Present Illness Date of Service: 11/20/21 Chief Complaint: Body ache, weakness, 80-year-old male with history of posttraumatic stress disorder, chronic kidney disease stage 4, essential hypertension, history of colon cancer, CVA, history of recurrent nephrolithiasis who was brought to the emergency department from SNF due to weakness, poor oral intake since testing positive for covid on 11/12 with no report of significant respiratory symptoms. routine lab work showed? elevated creatine above his baseline with present creatine of 4.82, BUN of 64 and bicab 13. No active covid symptoms and normal oxygen saturation on room air Review of Systems Review of Systems: Gen: no fever Resp: no sob, no cough CV: no chest, no RUIZ, no leg edema GI: No n/v, no abd pain Neuro: No confusion Yes all other systems are reviewed and are negative FORMERLY [facility], 1928–1983 Medical History Agitation Cancer of kidney Chronic post-traumatic stress disorder (PTSD) Chronic UTI Colon cancer Colostomy in place Delirium Diabetes type 2, controlled Hematuria High cholesterol HTN (hypertension) Hydronephrosis Hydroureter Kidney stone PTSD (post-traumatic stress disorder) Pyuria Stroke Family History Father Stroke Social History Household Members: Spouse Housing: House Do you presently have visiting nurse or other home services: No Alcohol intake: never Patient Tobacco Use Status: Never used Tobacco Advance Directives: Yes Advance Directives on File: Yes Advance Directives Date on File: 10/15/21 service: Yes Current occupational status: retired Meds Allergies Allergy/AdvReac Type Severity Reaction Status Date / Time erythromycin base Allergy Severe TREMORS Verified 08/26/20 12:00 [ERYTHROMYCIN BASE] morphine [MORPHINE] Allergy Severe HALLUCINATI Verified 08/26/20 12:00 ONS acetaminophen [From Percocet] AdvReac Intermediate agitation Verified 10/15/21 10:59 oxycodone [From Percocet] AdvReac Intermediate agitation Verified 10/15/21 10:59 prochlorperazine AdvReac dystonia Verified 10/15/21 10:59 [From Compazine] Active Medications: Current Medications Pharmacy Consult (Consult Rx Perform Med Rec) 1 each MISCELLANE ONCE PRN PRN Reason: Consult order Home Medications Medication Instructions Recorded Confirmed Last Taken Type amlodipine 5 mg tablet 1 tab PO BID 08/26/20 11/20/21 10/14/21 History ascorbic acid (vitamin C) 500 mg 1,000 mg PO BID 08/26/20 11/20/21 10/14/21 History tablet (Vitamin C) aspirin 25 mg-dipyridamole 200 mg 1 cap PO BID 08/26/20 11/20/21 10/14/21 History capsule,ext.release 12 hr multiphase atorvastatin 10 mg tablet 10 mg PO BEDTIME 08/26/20 11/20/21 10/14/21 History cholecalciferol (vitamin D3) 50 50 mcg PO DAILY 08/26/20 11/20/21 10/14/21 History mcg (2,000 unit) capsule (Vitamin D3) coenzyme Q10 100 mg capsule 200 mg PO DAILY 08/26/20 11/20/21 10/14/21 History (CoQ-10) docusate sodium 100 mg capsule 100 mg PO DAILY 08/26/20 11/20/21 10/14/21 History (Colace) duloxetine 30 mg capsule,delayed 1 cap PO BEDTIME 08/26/20 11/20/21 10/14/21 History release famotidine 20 mg tablet 20 mg PO BID 08/26/20 11/20/21 10/14/21 History mecobalamin (vitamin B12) 1,000 1,000 mcg PO DAILY 08/26/20 11/20/21 10/14/21 History mcg chewable tablet (B12 Active) melatonin 5 mg capsule 10 mg PO BEDTIME PRN Insomnia 08/26/20 11/20/21 10/14/21 History multivitamin 1 tab PO DAILY 08/26/20 11/20/21 10/14/21 History potassium chloride 20 mEq 1 tab PO DAILY 10/04/21 11/20/21 10/14/21 History tablet,extended release(part/cryst) sodium bicarbonate 650 mg tablet 1 tab PO BID 10/04/21 11/20/21 10/14/21 History zinc sulfate 50 mg zinc (220 mg) 1 cap PO DAILY 10/04/21 11/20/21 10/14/21 History capsule carvedilol 25 mg tablet 1 tab PO BID 10/15/21 11/20/21 10/14/21 History Saccharomyces boulardii 250 mg 250 mg PO DAILY 11/20/21 11/20/21 Unknown History capsule acetaminophen 325 mg tablet 650 mg PO Q6H PRN Pain 11/20/21 11/20/21 Unknown History calcium carbonate 500 mg calcium 1,000 mg PO BID 11/20/21 11/20/21 Unknown History (1,250 mg) tablet loperamide 2 mg capsule 2 mg PO Q8H PRN Loose Stool 11/20/21 11/20/21 Unknown History sitagliptin 25 mg tablet 25 mg PO DAILY 11/20/21 11/20/21 Unknown History Physical Exam Vital Signs and Narrative: Vital Signs: Last Vital Signs Temp 98.3 F 11/20/21 16:33 Pulse 62 11/20/21 16:33 Resp 14 11/20/21 16:33 BP 132/65 11/20/21 16:33 Pulse Ox 97 11/20/21 16:33 O2 Del Method 11/20/21 16:33 BMI result Body Mass Index 22.4 Const: Other: Constitutional: Alert, in no distress, overweight. Mental Status: Oriented to person, place and time. Eyes: Pupils are equal, round and reactive to light. Ear, Nose and Throat: Oropharynx clear, mucous membranes moist. Ears and nose without eformities. Trachea midline. Respiratory: Clear to auscultation. No wheezing, rales or rhonchi. Cardiovascular: S1 S2 regular. No murmurs, rubs or gallops. Gastrointestinal: Abdomen soft, non-tender, non-distended. Normal bowel sounds.? Neurologic: Cranial nerves II-XII grossly intact. No focal neurological deficits. Moves all extremities spontaneously.? Skin: No rashes or lesions.? Musculoskeletal: No cyanosis or clubbing. Psychiatric: Normal mood and affect? Results Labs CBC and Chem 7: 11/20/21 16:56 11/21/21 06:19 Labs: Laboratory Results - last 24 hr 11/20/21 11/20/21 11/20/21 16:56 16:56 16:56 MCV 83.0 MCH 26.6 L MCHC 32.0 RDW 15.6 Plt Count 265 MPV 10.2 Immature Gran % (Auto) 0.9 H Neut % (Auto) 70.6 Lymph % (Auto) 17.7 L [place] % (Auto) 10.5 Eos % (Auto) 0.3 Baso % (Auto) 0.0 Lymph # (Auto) 1.2 [place] # (Auto) 0.7 Eos # (Auto) 0.0 Baso # (Auto) 0.0 Abs Immat Gran (auto) 0.06 H Absolute Neuts (auto) 4.7 Absolute Nucleated RBC 0.000 Nucleated RBC % (auto) 0.0 Anion Gap 20 Estim Creat Clear Calc 11.8 Estimated GFR 12 Random Glucose 160 H Calcium 8.5 COVID-19 (AMEYA) Positive A COVID-19 Clin Com See Note Imaging Radiologist's Impressions: Impressions Chest X-Ray 11/20/21 17:05 IMPRESSION: No acute finding. Assessment and Plan (1) ESTUARDO (acute kidney injury): Status: Acute (2) Diabetes type 2, controlled: Status: Acute (3) Acute dehydration: Status: Acute Plan 80-year-old male with history of posttraumatic stress disorder, chronic kidney disease stage 4, essential hypertension, history of colon cancer, CVA, history of recurrent nephrolithiasis here with weakness, ESTUARDO in setting recent covid diagnosis #ESTUARDO on CKD 4, likely pre lashae state related to decrease oral intake from covid illness #Hyperkalemia--mild, repeat tomorrow #Metabolic acidosis--Bicab replacement #Covid-19--assymptomatic and beyond window for Paxlovid and not candidate for remdesevir given high cr #Nausea and vomitting--likely related to covid, hydrate and if perists abdominal imaging #.? History of CVA -on Aggrenox and statin Stage 4 Severe CKD (GFR = 15-29 mL/min)--with decrease GFR now d/t ESTUARDO, monitor DVT prophylaxis--Heparin CODE full code Quality Stroke Does the patient have a stroke diagnosis?: No VTE Prior VTE?: No VTE Risk Level:: Medical - moderate - high VTE Device Contraindication: Treatment Not Indicated VTE Drug Contraindication: N/A - Med Ordered
--- NOTE | 2021-11-20 18:59 | PHA.MEDREC ---
Pharmacy Consult ? Medication Reconciliation Pharmacy has completed the medication reconciliation. pt from [facility], trini used
[2021-11-20] MEDS: Acetaminophen 325 MG TABLET 975 MG PO (19:18)
[2021-11-20] MEDS: Heparin Sodium,Porcine 5,000 UNIT/ML VIAL 5000 UNIT SUBCUT (19:28)
[2021-11-20] MEDS: Sodium Bicarbonate 8.4% 150 MEQ in Dextrose 5 % 850 ML 100 MEQ IV (20:05)
[2021-11-21] VITALS: BP 124/59; PULSE 71; RESP 18; TEMP 36.4; O2SAT 97
[2021-11-21] MEDS: Heparin Sodium,Porcine 5,000 UNIT/ML VIAL 5000 UNIT SUBCUT ×2 (06:00→20:31)
[2021-11-21 07:01] LABS: Anion Gap 18 (12-20); Blood Urea Nitrogen 58 mg/dL (9-16); Calcium 8.5 mg/dL (8.4-10.2); Carbon Dioxide 14 mmol/L (22-29); Chloride 116 mmol/L (96-108); Creatinine Clr Calc Pharmacy 13.3; Estimated Glomerular Filt Rate 13; Glucose Random 155 mg/dL (60-115); Sodium 143 mmol/L (135-145)
[2021-11-21 08:03] VITALS: BP 149/68; PULSE 64; RESP 17; TEMP 36.3; O2SAT 97
--- NOTE | 2021-11-21 13:35 | P.PNIM_ITS ---
Subjective Subjective Date of Service: 11/21/21 Interval History: seen in f/u for estuardo, weakness, dehydration interval history: still feels weak but better, Scr is slightly better Review of Systems no fever no sob no changes in mentals Physical Exam Vital Signs: Vital Signs: Last Vital Signs Temp 97.3 F 11/21/21 08:03 Pulse 64 11/21/21 08:03 Resp 17 11/21/21 08:03 BP 149/68 H 11/21/21 08:03 Pulse Ox 97 11/21/21 08:03 O2 Del Method 11/21/21 08:03 BMI result Body Mass Index 22.4 Objective Data Active Medications Heparin Sodium (Porcine) (Heparin Sodium,Porcine 5,000 Unit/Ml Vial) 5,000 unit SUBCUT Q12H [facility] Last Admin: 11/21/21 06:00 Dose: 5,000 unit Documented By: ANASTACIA Sodium Bicarbonate 150 meq/ (Dextrose) 1,000 mls @ 100 mls/hr IV .Q10H [facility] Last Admin: 11/21/21 10:54 Dose: Not Given Documented By: SHAI Non-Admin Reason: IV Running Melatonin (Melatonin 3 Mg Tablet) 3 mg PO BEDTIME PRN PRN Reason: Insomnia Pharmacy Consult (Consult Rx Perform Med Rec) 1 each MISCELLANE ONCE PRN PRN Reason: Consult order Sodium Chloride (0.9 % Sodium Chloride Flush 3 Ml Syringe) 3 ml IVFLUSH QSHIFT [facility] Last Admin: 11/21/21 09:03 Dose: Not Given Documented By: SHAI Non-Admin Reason: IV Running Labs CBC & Chem 7: 11/20/21 16:56 11/21/21 06:19 Labs: Laboratory Results - last 24 hr 11/20/21 11/20/21 11/20/21 16:56 16:56 16:56 MCV 83.0 MCH 26.6 L MCHC 32.0 RDW 15.6 Plt Count 265 MPV 10.2 Immature Gran % (Auto) 0.9 H Neut % (Auto) 70.6 Lymph % (Auto) 17.7 L [place] % (Auto) 10.5 Eos % (Auto) 0.3 Baso % (Auto) 0.0 Lymph # (Auto) 1.2 [place] # (Auto) 0.7 Eos # (Auto) 0.0 Baso # (Auto) 0.0 Abs Immat Gran (auto) 0.06 H Absolute Neuts (auto) 4.7 Absolute Nucleated RBC 0.000 Nucleated RBC % (auto) 0.0 Anion Gap 20 Estim Creat Clear Calc 11.8 Estimated GFR 12 Random Glucose 160 H Calcium 8.5 COVID-19 (AMEYA) Positive A COVID-19 Clin Com See Note 11/21/21 06:19 MCV MCH MCHC RDW Plt Count MPV Immature Gran % (Auto) Neut % (Auto) Lymph % (Auto) [place] % (Auto) Eos % (Auto) Baso % (Auto) Lymph # (Auto) [place] # (Auto) Eos # (Auto) Baso # (Auto) Abs Immat Gran (auto) Absolute Neuts (auto) Absolute Nucleated RBC Nucleated RBC % (auto) Anion Gap 18 Estim Creat Clear Calc 13.3 Estimated GFR 13 Random Glucose 155 H Calcium 8.5 COVID-19 (AMEYA) COVID-19 Clin Com Assessment and Plan (1) Acute dehydration: Status: Acute (2) ESTUARDO (acute kidney injury): Status: Acute (3) Diabetes type 2, controlled: Status: Acute Plan 80-year-old male with history of posttraumatic stress disorder, chronic kidney disease stage 4, essential hypertension, history of colon cancer, CVA, history of recurrent nephrolithiasis here with weakness, ESTUARDO in setting recent covid diagnosis #ESTUARDO on CKD 4, likely pre renal state related to decrease oral intake from covid illness -IV fluid -Nephrology consult #Hyperkalemia--mild, resolved #Metabolic acidosis--Bicab replacement #Covid-19--assymptomatic and beyond window for Paxlovid and not candidate for remdesevir given high cr #Nausea and vomitting--likely related to covid, hydrate and if perists abdominal imaging, advance diet #.? History of CVA -on Aggrenox and statin Stage 4 Severe CKD (GFR = 15-29 mL/min)--with decrease GFR now d/t ESTUARDO, monitor DVT prophylaxis--Heparin Need for inpatient: ongoing Treatment with IVF for acute renal failure and monitoring labs Quality Stroke Does the patient have a stroke diagnosis?: No VTE Prior VTE?: No VTE Risk Level:: Medical - moderate - high VTE Device Contraindication: Treatment Not Indicated VTE Drug Contraindication: N/A - Med Ordered
[2021-11-21] MEDS: Sodium Bicarbonate 8.4% 150 MEQ in Dextrose 5 % 850 ML 100 MEQ IV (13:40)
--- NOTE | 2021-11-21 14:26 | MHC.CM.PN ---
IMM TO BE MAILED TO [facility]/HCP JUAN JOSE PT UNABLE TO PARTICIPATE. CM CALLED AND LEFT MESSAGE X 2( [phone]) FOR [facility] TO RETURN CALL TO DISCUSS DC PLAN.
--- NOTE | 2021-11-21 15:09 | PM.CNNEP ---
History of Present Illness Reason for Consult Consult date: 11/21/21 Reason for consult: ESTUARDO Chief Complaint Chief complaint: ESTUARDO History of Present Illness Narrative: 80-year-old male with history of posttraumatic stress disorder, chronic kidney disease stage 4, essential hypertension, history of colon cancer, CVA, history of recurrent nephrolithiasis who was brought to the emergency department from SNF due to weakness, poor oral intake since testing ? positive for covid on 11/12 with no report of significant respiratory symptoms.? routine lab work showed? elevated creatinine above his baseline with present creatinine of 4.82, BUN of 64 and bicab 13.? No active covid symptoms and normal oxygen saturation on room air BASELINE CREATININE IS AROUND 2.8 H/O OBSTRUCTIVE UROPATHY Review of Systems Constitutional: Reports as per HPI Cardiovascular: Denies chest pain and Denies diaphoresis Respiratory: Denies hemoptysis Gastrointestinal: Denies abdominal pain Musculoskeletal: Denies arthralgias PMFSH Past Medical History Medical History Agitation Cancer of kidney Chronic post-traumatic stress disorder (PTSD) Chronic UTI Colon cancer Colostomy in place Delirium Diabetes type 2, controlled Hematuria High cholesterol HTN (hypertension) Hydronephrosis Hydroureter Kidney stone PTSD (post-traumatic stress disorder) Pyuria Stroke Family History Family History Father Stroke Social History Social History Household Members: Spouse Housing: House Do you presently have visiting nurse or other home services: No Alcohol intake: never Patient Tobacco Use Status: Never used Tobacco Advance Directives: Yes Advance Directives on File: Yes Advance Directives Date on File: 10/15/21 service: Yes Current occupational status: retired Meds Allergies Allergy/AdvReac Type Severity Reaction Status Date / Time erythromycin base Allergy Severe TREMORS Verified 08/26/20 12:00 [ERYTHROMYCIN BASE] morphine [MORPHINE] Allergy Severe HALLUCINATI Verified 08/26/20 12:00 ONS acetaminophen [From Percocet] AdvReac Intermediate agitation Verified 10/15/21 10:59 oxycodone [From Percocet] AdvReac Intermediate agitation Verified 10/15/21 10:59 prochlorperazine AdvReac dystonia Verified 10/15/21 10:59 [From Compazine] Active Medications: Current Medications Heparin Sodium (Porcine) (Heparin Sodium,Porcine 5,000 Unit/Ml Vial) 5,000 unit SUBCUT Q12H [facility] Last Admin: 11/21/21 06:00 Dose: 5,000 unit Sodium Bicarbonate 150 meq/ (Dextrose) 1,000 mls @ 100 mls/hr IV .Q10H [facility] Last Admin: 11/21/21 13:40 Dose: 100 mls/hr Melatonin (Melatonin 3 Mg Tablet) 3 mg PO BEDTIME PRN PRN Reason: Insomnia Pharmacy Consult (Consult Rx Perform Med Rec) 1 each MISCELLANE ONCE PRN PRN Reason: Consult order Sodium Chloride (0.9 % Sodium Chloride Flush 3 Ml Syringe) 3 ml IVFLUSH QSHIFT [facility] Last Admin: 11/21/21 09:03 Dose: Not Given Home Medications Medication Instructions Recorded Confirmed Last Taken Type amlodipine 5 mg tablet 1 tab PO BID 08/26/20 11/20/21 10/14/21 History ascorbic acid (vitamin C) 500 mg 1,000 mg PO BID 08/26/20 11/20/21 10/14/21 History tablet (Vitamin C) aspirin 25 mg-dipyridamole 200 mg 1 cap PO BID 08/26/20 11/20/21 10/14/21 History capsule,ext.release 12 hr multiphase atorvastatin 10 mg tablet 10 mg PO BEDTIME 08/26/20 11/20/21 10/14/21 History cholecalciferol (vitamin D3) 50 50 mcg PO DAILY 08/26/20 11/20/21 10/14/21 History mcg (2,000 unit) capsule (Vitamin D3) coenzyme Q10 100 mg capsule 200 mg PO DAILY 08/26/20 11/20/21 10/14/21 History (CoQ-10) docusate sodium 100 mg capsule 100 mg PO DAILY 08/26/20 11/20/21 10/14/21 History (Colace) duloxetine 30 mg capsule,delayed 1 cap PO BEDTIME 08/26/20 11/20/21 10/14/21 History release famotidine 20 mg tablet 20 mg PO BID 08/26/20 11/20/21 10/14/21 History mecobalamin (vitamin B12) 1,000 1,000 mcg PO DAILY 08/26/20 11/20/21 10/14/21 History mcg chewable tablet (B12 Active) melatonin 5 mg capsule 10 mg PO BEDTIME PRN Insomnia 08/26/20 11/20/21 10/14/21 History multivitamin 1 tab PO DAILY 08/26/20 11/20/21 10/14/21 History potassium chloride 20 mEq 1 tab PO DAILY 10/04/21 11/20/21 10/14/21 History tablet,extended release(part/cryst) sodium bicarbonate 650 mg tablet 1 tab PO BID 10/04/21 11/20/21 10/14/21 History zinc sulfate 50 mg zinc (220 mg) 1 cap PO DAILY 10/04/21 11/20/21 10/14/21 History capsule carvedilol 25 mg tablet 1 tab PO BID 10/15/21 11/20/21 10/14/21 History Saccharomyces boulardii 250 mg 250 mg PO DAILY 11/20/21 11/20/21 Unknown History capsule acetaminophen 325 mg tablet 650 mg PO Q6H PRN Pain 11/20/21 11/20/21 Unknown History calcium carbonate 500 mg calcium 1,000 mg PO BID 11/20/21 11/20/21 Unknown History (1,250 mg) tablet loperamide 2 mg capsule 2 mg PO Q8H PRN Loose Stool 11/20/21 11/20/21 Unknown History sitagliptin 25 mg tablet 25 mg PO DAILY 11/20/21 11/20/21 Unknown History Physical Exam Vital Signs: Last Vital Signs Temp 97.3 F 11/21/21 08:03 Pulse 64 11/21/21 08:03 Resp 17 11/21/21 08:03 BP 149/68 H 11/21/21 08:03 Pulse Ox 97 11/21/21 08:03 O2 Del Method 11/21/21 08:03 BMI result Body Mass Index 22.4 Const Other: Constitutional: Alert, in no distress, overweight. Mental Status: Oriented to person, place and time. Eyes: Pupils are equal, round and reactive to light. Ear, Nose and Throat: Oropharynx clear, mucous membranes moist. Ears and nose without eformities. Trachea midline. Respiratory: Clear to auscultation. No wheezing, rales or rhonchi. Cardiovascular: S1 S2 regular. No murmurs, rubs or gallops. Gastrointestinal: Abdomen soft, non-tender, non-distended. Normal bowel sounds.? Neurologic: Cranial nerves II-XII grossly intact. No focal neurological deficits. Moves all extremities spontaneously.? Skin: No rashes or lesions.? Musculoskeletal: No cyanosis or clubbing. Psychiatric: Normal mood and affect? Results Lab Results Result Diagrams: 11/20/21 16:56 11/21/21 06:19 Lab results: Chemistry 11/20/21 11/21/21 16:56 06:19 Sodium 143 143 Potassium 5.3 H D 5.0 Carbon Dioxide 13 L 14 L BUN 64 H D 58 H Creatinine 4.82 H* 4.29 H* Calcium 8.5 8.5 Hematology 11/20/21 16:56 WBC 6.7 Hgb 11.1 L Plt Count 265 Assessment and Plan (1) Acute dehydration: Status: Acute (2) ESTUARDO (acute kidney injury): Status: Acute (3) Diabetes type 2, controlled: Status: Acute Plan 80-year-old male with history of posttraumatic stress disorder, chronic kidney disease stage 4, essential hypertension, history of colon cancer, CVA, history of recurrent nephrolithiasis here with weakness, ESTUARDO in setting recent covid diagnosis 1. ESTUARDO: r/o DEhydration r/o Obs uropathy of L kidney based on previous history 2. CKD 4; BSL SCr 2.0-2.5 in the past. Monitor for ongoing recovery. 3. L [place]: s/p cysto/stent? 11/02 4. HTN Suggest Urine Studies- Na/Cr/Protein IV Hydration Renal sonogram would avoid all nephrotoxins Avoid hypotension DC KCl- done Keep on Bicarb No indication for dialysis yet Procedures Date of Service Date of Service: 11/21/21
[2021-11-21 15:50] VITALS: BP 181/86; PULSE 66; RESP 19; TEMP 36.8; O2SAT 98
[2021-11-21] MEDS: LORazepam 0.5 MG TABLET 0.25 MG PO (18:19)
[2021-11-21 20:00] VITALS: BP 165/77; PULSE 71; RESP 18; TEMP 37.6; O2SAT 95
[2021-11-21] MEDS: 0.9 % Sodium Chloride Flush 3 ML SYRINGE IVFLUSH (20:31)
[2021-11-22] VITALS (7 sets, daily range): BP systolic 133–165; BP diastolic 65–83; PULSE 65–86; RESP 17–18; TEMP 36.7–37.3; O2SAT 94–98
[2021-11-22] MEDS: Heparin Sodium,Porcine 5,000 UNIT/ML VIAL 5000 UNIT SUBCUT ×2 (06:07→17:21)
[2021-11-22 07:31] LABS: Anion Gap 18 (12-20); Blood Urea Nitrogen 45 mg/dL (9-16); Calcium 8.5 mg/dL (8.4-10.2); Carbon Dioxide 19 mmol/L (22-29); Chloride 113 mmol/L (96-108); Creatinine Clr Calc Pharmacy 15.7; Estimated Glomerular Filt Rate 16; Glucose Random 148 mg/dL (60-115); Potassium 4.5 mmol/L (3.3-5.1); Sodium 145 mmol/L (135-145)
[2021-11-22] MEDS: 0.9 % Sodium Chloride Flush 3 ML SYRINGE IVFLUSH ×2 (09:22→16:22)
--- NOTE | 2021-11-22 10:35 | P.PNNP_ITS ---
Subjective Subjective Date of Service: 12/04/21 Interval history: seen in f/u for estuardo, weakness, dehydration interval history: still feels weak but better, Scr is slightly better Physical Exam Vital Signs: Vital Signs: Last Vital Signs Temp 98.1 F 11/22/21 08:00 Pulse 86 11/22/21 08:00 Resp 18 11/22/21 08:00 BP 158/75 H 11/22/21 08:00 Pulse Ox 98 11/22/21 08:00 O2 Del Method 11/22/21 08:00 BMI result Body Mass Index 22.4 Const: Other: Constitutional: Alert, in no distress, overweight. Mental Status: Oriented to person, place and time. Eyes: Pupils are equal, round and reactive to light. Ear, Nose and Throat: Oropharynx clear, mucous membranes moist. Ears and nose without eformities. Trachea midline. Respiratory: Clear to auscultation. No wheezing, rales or rhonchi. Cardiovascular: S1 S2 regular. No murmurs, rubs or gallops. Gastrointestinal: Abdomen soft, non-tender, non-distended. Normal bowel sounds.? Neurologic: Cranial nerves II-XII grossly intact. No focal neurological deficits. Moves all extremities spontaneously.? Skin: No rashes or lesions.? Musculoskeletal: No cyanosis or clubbing. Psychiatric: Normal mood and affect? Objective Data Labs CBC & Chem 7: 11/20/21 16:56 11/24/21 07:38 Labs: Laboratory Results - last 24 hr 11/22/21 06:33 Sodium 145 Potassium 4.5 Chloride 113 H Carbon Dioxide 19 L Anion Gap 18 BUN 45 H Creatinine 3.64 H Estim Creat Clear Calc 15.7 Estimated GFR 16 Random Glucose 148 H Calcium 8.5 Procedures Date of Service Date of Service: 11/22/21 Assessment & Plan Assessment and plan (1) Acute dehydration: Status: Resolved (2) ESTUARDO (acute kidney injury): Status: Resolved (3) Diabetes type 2, controlled: Status: Inactive Plan 80-year-old male with history of posttraumatic stress disorder, chronic kidney disease stage 4, essential hypertension, history of colon cancer, CVA, history of recurrent nephrolithiasis here with weakness, ESTUARDO in setting recent covid diagnosis 1. ESTUARDO: r/o Dehydration r/o Obs uropathy of L kidney based on previous history 2. CKD 4; BSL SCr 2.0-2.5 in the past. Monitor for ongoing recovery. 3. L [place]: s/p cysto/stent? 11/02 4. HTN Creatinine is trending down with hydration. Currently non oliguric. Suggest Urine Studies- Na/Cr/Protein IV Hydration Renal sonogram to follow up on ongoing onstruction. would continue to avoid all nephrotoxins Avoid hypotension Keep on Bicarb and watch pNa No indication for dialysis yet Progress Note: Quality Stroke Does the patient have a stroke diagnosis?: No
--- NOTE | 2021-11-22 12:46 | MHC.CM.PN ---
This casualty underwriter meet with patient's @ bedside. She prefers that patient does not return to [facility], but he returns home instead. She is requesting PT in-house, explain to that pt would receive PT eval but unlikely to receive intense therapy as he would in rehab. She verbalized understanding. Reports that patient had [facility] in the home historically. asking questions regarding a procedure pending to be done by Dr. lee prior to hospitalization. Notified MD that had questions regarding medical care plan. Referral placed to [facility]- they will follow pt's hospital course.
--- NOTE | 2021-11-22 13:31 | HO.PM.IMPN ---
Subjective Subjective Date of Service: 11/22/21 Interval History: seen in f/u for estuardo, weakness, dehydration interval history: Better, creatine down, at bedside Review of Systems no fever no sob no changes in mentals Physical Exam Vital Signs: Vital Signs: Last Vital Signs Temp 99.1 F 11/22/21 11:39 Pulse 69 11/22/21 11:39 Resp 18 11/22/21 11:39 BP 158/69 H 11/22/21 11:39 Pulse Ox 96 11/22/21 11:39 O2 Del Method 11/22/21 11:39 BMI result Body Mass Index 22.4 Const: Other: Constitutional: Alert, in no distress, overweight. Mental Status: Oriented to person, place and time. Eyes: Pupils are equal, round and reactive to light. Ear, Nose and Throat: Oropharynx clear, mucous membranes moist. Ears and nose without eformities. Trachea midline. Respiratory: Clear to auscultation. No wheezing, rales or rhonchi. Cardiovascular: S1 S2 regular. No murmurs, rubs or gallops. Gastrointestinal: Abdomen soft, non-tender, non-distended. Normal bowel sounds.?colostomy bag in place Neurologic: Cranial nerves II-XII grossly intact. No focal neurological deficits. Moves all extremities spontaneously.? Skin: No rashes or lesions.? Musculoskeletal: No cyanosis or clubbing. Psychiatric: Normal mood and affect? Objective Data Active Medications Heparin Sodium (Porcine) (Heparin Sodium,Porcine 5,000 Unit/Ml Vial) 5,000 unit SUBCUT Q12H [facility] Last Admin: 11/22/21 06:07 Dose: 5,000 unit Documented By: COLLINS Lorazepam (Lorazepam 0.5 Mg Tablet) 0.25 mg PO Q6H PRN PRN Reason: Anxiety Last Admin: 11/21/21 18:19 Dose: 0.25 mg Documented By: SHAI Melatonin (Melatonin 3 Mg Tablet) 3 mg PO BEDTIME PRN PRN Reason: Insomnia Pharmacy Consult (Consult Rx Perform Med Rec) 1 each MISCELLANE ONCE PRN PRN Reason: Consult order Sodium Chloride (0.9 % Sodium Chloride Flush 3 Ml Syringe) 3 ml IVFLUSH QSHIFT [facility] Last Admin: 11/22/21 09:22 Dose: 3 ml Documented By: MAEGAN Labs CBC & Chem 7: 11/20/21 16:56 11/22/21 06:33 Labs: Laboratory Results - last 24 hr 11/22/21 06:33 Anion Gap 18 Estim Creat Clear Calc 15.7 Estimated GFR 16 Random Glucose 148 H Calcium 8.5 Assessment and Plan (1) Acute dehydration: Status: Acute (2) ESTUARDO (acute kidney injury): Status: Acute (3) Diabetes type 2, controlled: Status: Acute Plan 80-year-old male with history of posttraumatic stress disorder, chronic kidney disease stage 4, essential hypertension, history of colon cancer, CVA, history of recurrent nephrolithiasis here with weakness, ESTUARDO in setting recent covid diagnosis #ESTUARDO on CKD 4, likely pre renal state related to decrease oral intake from covid illness -IV fluid but can stop now -Nephrology follow #HypRrkalemia--mild, resolved #Metabolic acidosis--Bicab replacement #Covid-19--assymptomatic and beyond window for Paxlovid and not candidate for remdesevir given high cr #Nausea and vomitting--likely related to covid, hydrate and if perists abdominal imaging, advance diet #.? History of CVA -on Aggrenox and statin Stage 4 Severe CKD (GFR = 15-29 mL/min)--with decrease GFR now d/t ESTUARDO, monitor DVT prophylaxis--Heparin PT eval : doesn't want him going back to rehab Need for inpatient: ongoing Treatment with IVF for acute renal failure and monitoring labs Quality Stroke Does the patient have a stroke diagnosis?: No VTE Prior VTE?: No VTE Risk Level:: Medical - moderate - high VTE Device Contraindication: Treatment Not Indicated VTE Drug Contraindication: N/A - Med Ordered
--- NOTE | 2021-11-22 14:51 | PM.UROCN ---
History of Present Illness Consult details Consult date: 11/22/21 Narrative: Ronny is an 80-year-old male with a history of posttraumatic stress disorder, chronic kidney disease stage 4, essential hypertension, history of colon cancer, CVA, history of recurrent nephrolithiasis who was brought to the emergency department from SNF due to weakness, poor oral intake since testing positive for covid on 11/12 with no report of significant respiratory symptoms.?ED workup including lab work showed? elevated creat above his baseline, creatine of 4.82, BUN of 64. Called to evaluate for urinary retention. The patient had a bain placed. He had recent admission 10/29/2021 and was evaluated by Urology for left hydronephrosis, Dr. Kang placed left ureteral stent, creat at time of that discharge was 2.9. 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 Alcohol intake: never Patient Tobacco Use Status: Never used Tobacco Advance Directives Date on File: 10/15/21 service: Yes Current occupational status: retired Meds Allergies Allergy/AdvReac Type Severity Reaction Status Date / Time erythromycin base Allergy Severe TREMORS Verified 08/26/20 12:00 [ERYTHROMYCIN BASE] morphine [MORPHINE] Allergy Severe HALLUCINATI Verified 08/26/20 12:00 ONS oxycodone [From Percocet] AdvReac Intermediate agitation Verified 10/15/21 10:59 prochlorperazine AdvReac dystonia Verified 10/15/21 10:59 [From Compazine] Active Medications: Current Medications Heparin Sodium (Porcine) (Heparin Sodium,Porcine 5,000 Unit/Ml Vial) 5,000 unit SUBCUT Q12H [facility] Last Admin: 11/22/21 06:07 Dose: 5,000 unit Lorazepam (Lorazepam 0.5 Mg Tablet) 0.25 mg PO Q6H PRN PRN Reason: Anxiety Last Admin: 11/21/21 18:19 Dose: 0.25 mg Melatonin (Melatonin 3 Mg Tablet) 3 mg PO BEDTIME PRN PRN Reason: Insomnia Pharmacy Consult (Consult Rx Perform Med Rec) 1 each MISCELLANE ONCE PRN PRN Reason: Consult order Sodium Chloride (0.9 % Sodium Chloride Flush 3 Ml Syringe) [facility] Last Admin: 11/22/21 09:22 Dose: 3 ml Home Medications Medication Instructions Recorded Confirmed Last Taken Type amlodipine 5 mg tablet 1 tab PO BID 08/26/20 11/20/21 10/14/21 History ascorbic acid (vitamin C) 500 mg 1,000 mg PO BID 08/26/20 11/20/21 10/14/21 History tablet (Vitamin C) aspirin 25 mg-dipyridamole 200 mg 1 cap PO BID 08/26/20 11/20/21 10/14/21 History capsule,ext.release 12 hr multiphase atorvastatin 10 mg tablet 10 mg PO BEDTIME 08/26/20 11/20/21 10/14/21 History cholecalciferol (vitamin D3) 50 50 mcg PO DAILY 08/26/20 11/20/21 10/14/21 History mcg (2,000 unit) capsule (Vitamin D3) coenzyme Q10 100 mg capsule 200 mg PO DAILY 08/26/20 11/20/21 10/14/21 History (CoQ-10) docusate sodium 100 mg capsule 100 mg PO DAILY 08/26/20 11/20/21 10/14/21 History (Colace) duloxetine 30 mg capsule,delayed 1 cap PO BEDTIME 08/26/20 11/20/21 10/14/21 History release famotidine 20 mg tablet 20 mg PO BID 08/26/20 11/20/21 10/14/21 History mecobalamin (vitamin B12) 1,000 1,000 mcg PO DAILY 08/26/20 11/20/21 10/14/21 History mcg chewable tablet (B12 Active) melatonin 5 mg capsule 10 mg PO BEDTIME PRN Insomnia 08/26/20 11/20/21 10/14/21 History multivitamin 1 tab PO DAILY 08/26/20 11/20/21 10/14/21 History potassium chloride 20 mEq 1 tab PO DAILY 10/04/21 11/20/21 10/14/21 History tablet,extended release(part/cryst) sodium bicarbonate 650 mg tablet 1 tab PO BID 10/04/21 11/20/21 10/14/21 History zinc sulfate 50 mg zinc (220 mg) 1 cap PO DAILY 10/04/21 11/20/21 10/14/21 History capsule carvedilol 25 mg tablet 1 tab PO BID 10/15/21 11/20/21 10/14/21 History Saccharomyces boulardii 250 mg 250 mg PO DAILY 11/20/21 11/20/21 Unknown History capsule acetaminophen 325 mg tablet 650 mg PO Q6H PRN Pain 11/20/21 11/20/21 Unknown History calcium carbonate 500 mg calcium 1,000 mg PO BID 11/20/21 11/20/21 Unknown History (1,250 mg) tablet loperamide 2 mg capsule 2 mg PO Q8H PRN Loose Stool 11/20/21 11/20/21 Unknown History sitagliptin 25 mg tablet 25 mg PO DAILY 11/20/21 11/20/21 Unknown History Physical Exam Vital Signs: Vital Signs: Last Vital Signs Temp 99.1 F 11/22/21 11:39 Pulse 69 11/22/21 13:40 Resp 18 11/22/21 11:39 BP 158/69 H 11/22/21 13:40 Pulse Ox 96 11/22/21 13:40 O2 Del Method 11/22/21 11:39 BMI result Body Mass Index 22.4 Const: General: no acute distress HEENT: Head: Yes normocephalic and Yes atraumatic Eyes: Conjunctivae: conjunctivae normal Neck: Neck: Yes normal visual inspection Chest: Chest palpation & inspection: normal inspection of the chest Resp: Effort & Inspection: normal respiratory effort Cardio: Rate: regular rate GI: Other: colostomy bag LLQ Palpation (GI): Soft to palpation : Other: Prostate Exam: Penis: normal penis Scrotum: scrotum normal Skin: General skin exam: no rashes or lesions noted Extrem: General: No pedal edema Psych: Affect: normal affect Results Labs Result diagrams: 11/20/21 16:56 11/23/21 07:32 Labs: Abnormal lab results 11/22/21 Range/Units 06:33 Chloride 113 H (96-108) mmol/L Carbon Dioxide 19 L (22-29) mmol/L BUN 45 H (9-16) mg/dL Creatinine 3.64 H (0.5-1.4) mg/dL Random Glucose 148 H (60-115) mg/dL [facility] 11/22/21 06:33 Sodium 145 Potassium 4.5 Chloride 113 H Carbon Dioxide 19 L BUN 45 H Creatinine 3.64 H Calcium 8.[address] scan report/results: report reviewed and image reviewed Additional studies: Date of Service: 10/29/21 EXAMINATION: CT ABDOMEN AND PELVIS WITHOUT CONTRAST? CLINICAL INFORMATION: Kidney stones? COMPARISON: None? TECHNIQUE: Multidetector volumetric imaging was performed from the superior aspect of the liver through the pubic symphysis. Sagittal and coronal reformatted images were obtained on the technologist's workstation.? This CT examination was performed using dose optimization techniques as appropriate, variously including the following: *Automated exposure control *Adjustment of mA and/or kV according to patient size (this includes techniques or standardized protocols for targeted exams where dose is matched to indication/reason for exam; i.e. extremities or head) *Use of iterative reconstruction technique DLP: 686 mGy-cm FINDINGS: LUNG BASES: Bibasilar scarring is present. Coronary calcifications are seen.? LIVER, GALLBLADDER, AND BILIARY TREE: The liver is normal in size, shape, and attenuation. At least 3 water density cysts are present in the liver. No worrisome solid focal hepatic lesion or biliary ductal dilatation is present. The gallbladder is distended but otherwise unremarkable with no evidence of radiopaque gallstones, gallbladder wall thickening, or obvious pericholecystic inflammatory changes.? PANCREAS: Unremarkable.? SPLEEN: Unremarkable.? ADRENAL GLANDS: The right adrenal gland is thickened. The left is not visualized with certainty. Multiple surgical in the left adrenal bed.? KIDNEYS AND URETERS: The right kidney is unremarkable. On the left, at least 3 nonobstructing calculi are present and unchanged. Marked pelvocaliectasis with a dilated left renal pelvis and dilated ureter is seen down into the pelvis. An obstructing stone is not seen. Conglomerate bowel loops and postsurgical changes are present in the stricture could be present. This finding is unchanged when compared to the prior study.? BLADDER: Unremarkable.? GASTROINTESTINAL TRACT: Patient status post surgical removal of the rectum and sigmoid with a left lower quadrant colostomy. Multiple surgical clips are present rectal fossa with soft tissue density surrounding which is unchanged when compared to the prior study. Again seen is a enteric anastomosis in the right lower quadrant. Please correlate with surgical history. The appendix appears to still be present. ABDOMINAL WALL: There are bilateral inguinal hernias seen containing nonobstructed bowel. Slightly larger than noted on 10/04/2021.? LYMPH NODES: No retroperitoneal lymphadenopathy. VASCULAR: Aorto iliac calcifications and ectasia is noted. Gross aneurysm is not seen. PELVIC VISCERA: Scarring is present in the prerectal space. The prostate appears unremarkable. No free pelvic fluid. OSSEOUS STRUCTURES: Degenerative changes are present in the spine with mild grade 1 anterolisthesis L4 upon L5. No bony destructive lesions? CT/CT abdomen pelvis wo IV con IMPRESSION: There are nonobstructing left renal calculi with chronic left-sided hydronephrosis with dilated ureter which does not appear to be secondary to calculus disease, but probable pelvic scarring from prior surgery and adhesions.? ? Incidental findings include coronary artery calcifications benign hepatic cysts, stable right adrenal gland thickening, partial left-sided colectomy with presacral scarring and postsurgical changes, enteric anastomosis in the right abdomen and slightly more prominent bilateral inguinal hernias Assessment and Plan (1) ESTUARDO (acute kidney injury): Status: Acute (2) Hydronephrosis: Status: Acute (3) Diabetes type 2, controlled: Status: Acute (4) Urinary retention: Status: Acute Plan ESTUARDO-- Lefthydro s/p stent Recommend Renal U/S Urinary Retention resolved--currently bain is removed and pt is emptying bladder adequately, he does have incontinent episodes Procedures Date of Service Date of Service: 11/23/21
--- NOTE | 2021-11-22 16:07 | PC.NURSE ---
Patient voided (unmeasured amount), PVR= 100ml at this time.
[2021-11-22] MEDS: Lactated Ringers 1,000 ML 100 ML IVCONT (16:21)
[2021-11-22] MEDS: Acetaminophen 325 MG TABLET 650 MG PO (18:33)
[2021-11-23] VITALS (7 sets, daily range): BP systolic 155–179; BP diastolic 78–87; PULSE 68–91; RESP 18; TEMP 36.7–37.1; O2SAT 95–98
[2021-11-23] MEDS: Acetaminophen 325 MG TABLET 650 MG PO ×2 (00:35→06:06)
[2021-11-23] MEDS: Lactated Ringers 1,000 ML 100 ML IVCONT (00:36)
[2021-11-23] MEDS: 0.9 % Sodium Chloride Flush 3 ML SYRINGE IVFLUSH (00:36)
[2021-11-23] MEDS: LORazepam 0.5 MG TABLET 0.25 MG PO (05:54)
[2021-11-23] MEDS: Heparin Sodium,Porcine 5,000 UNIT/ML VIAL 5000 UNIT SUBCUT ×2 (06:03→15:50)
--- NOTE | 2021-11-23 07:30 | PC.NURSE ---
Assumed care at this time of patient. Patient's IV not flushing/working properly. MD Rakesh paged and aware. No IV access at the moment. IVF paused.
[2021-11-23 08:06] LABS: Anion Gap 19 (12-20); Blood Urea Nitrogen 36 mg/dL (9-16); Calcium 8.7 mg/dL (8.4-10.2); Carbon Dioxide 19 mmol/L (22-29); Chloride 111 mmol/L (96-108); Creatinine Clr Calc Pharmacy 17.9; Estimated Glomerular Filt Rate 19; Glucose Random 143 mg/dL (60-115); Potassium 4.4 mmol/L (3.3-5.1); Sodium 145 mmol/L (135-145)
--- NOTE | 2021-11-23 10:44 | HO.PM.IMPN ---
Subjective Subjective Date of Service: 11/23/21 Interval History: seen in f/u for estuardo, weakness, dehydration interval history:continue to improve, did well with PT, renal function at baseline Review of Systems no fever no sob no changes in mentals Physical Exam Vital Signs: Vital Signs: Last Vital Signs Temp 98.4 F 11/23/21 07:43 Pulse 84 11/23/21 10:30 Resp 18 11/23/21 07:43 BP 155/80 H 11/23/21 10:30 Pulse Ox 98 11/23/21 10:30 O2 Del Method 11/23/21 07:43 BMI result Body Mass Index 22.4 Const: Other: Constitutional: Alert, in no distress, overweight. Mental Status: Oriented to person, place and time. Eyes: Pupils are equal, round and reactive to light. Ear, Nose and Throat: Oropharynx clear, mucous membranes moist. Ears and nose without eformities. Trachea midline. Respiratory: Clear to auscultation. No wheezing, rales or rhonchi. Cardiovascular: S1 S2 regular. No murmurs, rubs or gallops. Gastrointestinal: Abdomen soft, non-tender, non-distended. Normal bowel sounds.?colostomy bag in place Neurologic: Cranial nerves II-XII grossly intact. No focal neurological deficits. Moves all extremities spontaneously.? Skin: No rashes or lesions.? Musculoskeletal: No cyanosis or clubbing. Psychiatric: Normal mood and affect? Objective Data Active Medications Acetaminophen (Acetaminophen 325 Mg Tablet) 650 mg PO Q6H PRN PRN Reason: Pain, Mild (Pain Scale 1-3) Last Admin: 11/23/21 06:06 Dose: 650 mg Documented By: BRISEIDA Heparin Sodium (Porcine) (Heparin Sodium,Porcine 5,000 Unit/Ml Vial) 5,000 unit SUBCUT Q12H [facility] Last Admin: 11/23/21 06:03 Dose: 5,000 unit Documented By: BRISEIDA Lactated Ringer's (Lr) 1,000 mls @ 100 mls/hr IVCONT .Q10H [facility] Last Infusion: 11/23/21 06:46 Dose: 0 mls/hr Documented By: BRISEIDA Lorazepam (Lorazepam 0.5 Mg Tablet) 0.25 mg PO Q6H PRN PRN Reason: Anxiety Last Admin: 11/23/21 05:54 Dose: 0.25 mg Documented By: BRISEIDA Melatonin (Melatonin 3 Mg Tablet) 3 mg PO BEDTIME PRN PRN Reason: Insomnia Pharmacy Consult (Consult Rx Perform Med Rec) 1 each MISCELLANE ONCE PRN PRN Reason: Consult order Sodium Chloride (0.9 % Sodium Chloride Flush 3 Ml Syringe) 3 ml IVFLUSH QSHIFT [facility] Last Admin: 11/23/21 09:29 Dose: Not Given Documented By: MAEGAN Non-Admin Reason: No Access Labs CBC & Chem 7: 11/20/21 16:56 11/23/21 07:32 Labs: Laboratory Results - last 24 hr 11/23/21 07:32 Anion Gap 19 Estim Creat Clear Calc 17.9 Estimated GFR 19 Random Glucose 143 H Calcium 8.7 Assessment and Plan (1) Acute dehydration: Status: Acute (2) ESTAURDO (acute kidney injury): Status: Acute (3) Diabetes type 2, controlled: Status: Acute Plan 80-year-old male with history of posttraumatic stress disorder, chronic kidney disease stage 4, essential hypertension, history of colon cancer, CVA, history of recurrent nephrolithiasis here with weakness, ESTUARDO in setting recent covid diagnosis #ESTUARDO on CKD 4, -treated with IV and Cr within baseline -Nephrology follow -kidney US #HypeRrkalemia--mild, resolved #Metabolic acidosis--Bicab replacement #Covid-19--assymptomatic and beyond window for Paxlovid and not candidate for remdesevir given high cr #Nausea and vomitting--likely related to covid, hydrate and if perists abdominal imaging, advance diet #.? History of CVA -on Aggrenox and statin Stage 4 Severe CKD (GFR = 15-29 mL/min)--with decrease GFR now d/t ESTUARDO, monitor DVT prophylaxis--Heparin PT eval : doesn't want him going back to rehab Need for inpatient: ongoing Treatment with IVF for acute renal failure and monitoring labs possibly dc later today Quality Stroke Does the patient have a stroke diagnosis?: No VTE Prior VTE?: No VTE Risk Level:: Medical - moderate - high VTE Device Contraindication: Treatment Not Indicated VTE Drug Contraindication: N/A - Med Ordered
--- NOTE | 2021-11-23 13:24 | P.PNNP_ITS ---
Subjective Subjective Date of Service: 11/23/21 Interval history: seen and examined at bedside updated sitting out of bed no complaints Physical Exam Vital Signs: Vital Signs: Last Vital Signs Temp 98.0 F 11/23/21 11:48 Pulse 71 11/23/21 11:48 Resp 18 11/23/21 11:48 BP 157/83 H 11/23/21 11:48 Pulse Ox 95 11/23/21 11:48 O2 Del Method 11/23/21 11:48 BMI result Body Mass Index 22.4 Const: General: no acute distress HEENT: Head: Yes normocephalic and Yes atraumatic Neck: Neck: Yes supple Resp: Auscultation: diminished lung sounds Cardio: Heart sounds: S1 normal heart sound present and S2 normal heart sound present GI: Palpation (GI): Soft to palpation and nontender Extrem: General: No edema Objective Data Labs CBC & Chem 7: 11/20/21 16:56 11/23/21 07:32 Labs: Laboratory Results - last 24 hr 11/23/21 07:32 Sodium 145 Potassium 4.4 Chloride 111 H Carbon Dioxide 19 L Anion Gap 19 BUN 36 H Creatinine 3.19 H Estim Creat Clear Calc 17.9 Estimated GFR 19 Random Glucose 143 H Calcium 8.7 Procedures Date of Service Date of Service: 11/23/21 Assessment & Plan Assessment and plan (1) ESTUARDO (acute kidney injury): Status: Acute (2) Hydronephrosis: Status: Acute (3) CKD (chronic kidney disease) stage 4, GFR 15-29 ml/min: Status: Acute Plan Scr better ESTUARDO due to renal hypoperfusion and obstructive uropathy s/p left renal stent known CKD baseline Scr 2-2.5 mg/dl REC IVF urology f/u no indication for ELEV[employer]OR HELPER follow kidney function and electrolytes Time Spent With Patient Time: Total time spent is greater than 50% in coordination of care (as documented) at patient's floor/unit and/or counseling patient: Progress Note: Quality Stroke Does the patient have a stroke diagnosis?: No
[2021-11-24] VITALS: BP 191/79; PULSE 80; RESP 20; TEMP 36.3; O2SAT 98
--- NOTE | 2021-11-24 00:05 | PC.NURSE ---
Patient has been unable to tolerate IV insertion due to PTSD. Will try if patient allows. aware.
[2021-11-24 01:04] VITALS: BP 167/93
[2021-11-24] MEDS: LORazepam 0.5 MG TABLET 0.25 MG PO (03:02)
[2021-11-24 03:35] VITALS: BP 151/88; PULSE 82; RESP 20; TEMP 36.3; O2SAT 94
[2021-11-24 07:48] VITALS: BP 146/78; PULSE 116; RESP 17; TEMP 36.4; O2SAT 98
[2021-11-24 08:29] LABS: Anion Gap 18 (12-20); Blood Urea Nitrogen 31 mg/dL (9-16); Carbon Dioxide 20 mmol/L (22-29); Chloride 111 mmol/L (96-108); Creatinine Clr Calc Pharmacy 18.7; Estimated Glomerular Filt Rate 20; Glucose Random 151 mg/dL (60-115); Potassium 4.4 mmol/L (3.3-5.1); Sodium 145 mmol/L (135-145)
--- NOTE | 2021-11-24 10:57 | P.DS_ITS ---
DS: Providers Provider Date of Service: 11/24/21 Date of admission: 11/20/21 18:40 Primary care physician: Unknown Physician Consults: 11/22/21 08:29 Consult to Nephrology Routine Consulting Provider: Trevor Moreland Reason for consultation: estuardo Has provider been notified: Yes 11/22/21 11:38 Consult to Urology Routine Consulting Provider: Clement Kang Reason for consultation: urinary retention Has provider been notified: No DS: Diagnosis Discharge Diagnosis (1) SETUARDO (acute kidney injury): Status: Resolved (2) Hydronephrosis: Status: Inactive (3) CKD (chronic kidney disease) stage 4, GFR 15-29 ml/min: Status: Inactive DS: Summary Hospital Course Hospital Course: Chief Complaint: Body ache, weakness, 80-year-old male with history of posttraumatic stress disorder, chronic kidney disease stage 4, essential hypertension, history of colon cancer, CVA, history of recurrent nephrolithiasis who was brought to the emergency department from SNF due to weakness, poor oral intake since testing ? positive for covid on 11/12 with no report of significant respiratory symptoms.? routine lab work showed? elevated creatine above his baseline with present creatine of 4.82, BUN of 64 and bicab 13.? No active covid symptoms and normal oxygen saturation on room air. Hospital course: Patient was admitted for acute on chronic renal failure due to dehydration stemming from covid making the patient weak. His management consisted of IV fluid, and close monitoring of his creatine which has since returned to baseline around 3 and overall his weakness has improved. He was seen by Nephrology and urolgogy and did not need procedure. He had ultra sound of kidney which showed prior stent being in place with persistent hydronephrosis and will need to follow up with urology on outpatient basis. Covid was completly assymptomatic. Final diagnosis: #ESTUARDO on CKD 4 #HypeRrkalemia #Metabolic acidosis #Covid-19 #Nausea and vomitting #.? History of CVA #Stage 4 Severe CKD Time Spent with Patient Time attestation: Total time spent providing and/or coordinating discharge services: Discharge coordination time: Greater than 30 minutes Quality: Safe Use of Opioids Does Pt have an Active Cancer Diagnosis on the Problem List?: No Quality: Stroke Does the patient have a stroke diagnosis?: No Physical Exam Vital Signs: Vital Signs: Last Vital Signs Temp 97.6 F 11/24/21 07:48 Pulse 116 H 11/24/21 07:48 Resp 17 11/24/21 07:48 BP 146/78 H 11/24/21 07:48 Pulse Ox 98 11/24/21 07:48 O2 Del Method 11/24/21 07:48 BMI result Body Mass Index 22.4 DS: Data Data Completed and Pending Completed studies during hospitalization [Text1]: Procedures Dilation of Left Ureter with Intraluminal Device, Via Natural or Artificial Opening Endoscopic (11/01/21) Fluoroscopy of Left Kidney, Ureter and Bladder (11/01/21) Labs on day of discharge: Laboratory Results - last 24 hr 11/24/21 07:38 Sodium 145 Potassium 4.4 Chloride 111 H Carbon Dioxide 20 L Anion Gap 18 BUN 31 H Creatinine 3.05 H Estim Creat Clear Calc 18.7 Estimated GFR 20 Random Glucose 151 H Calcium 9.0 Discharge Plan Discharge Anticipated Discharge Date/Time: 11/24/21 10:46 Patient Disposition: Home Health Service Discharge Diagnosis: ESTUARDO on CKD 4 Referrals: [facility] [Outside] - 1 Week Physician,Unknown J [Physician] - 1 Week Discharge Medications: New nystatin [Nyamyc] 100,000 unit/gram powder 1 appl topical BID Qty: 60 0RF Rx Instructions: Apply to groin area bid carvedilol 12.5 mg Tablet 12.5 mg PO BID Qty: 60 0RF Protocol: Hold for SBP/HR < HOLD for SBP < : 90 HOLD for HR < : 60 hydralazine 25 mg tablet 25 mg PO TID Qty: 90 0RF Continued aspirin-dipyridamole 25-200 mg Capsule, Er Multiphase 12 Hr 1 cap PO BID atorvastatin 10 mg Tablet 10 mg PO BEDTIME amlodipine 5 mg tablet 1 tab PO BID docusate sodium [Colace] 100 mg capsule 100 mg PO DAILY coenzyme Q10 [CoQ-10] 100 mg Capsule 200 mg PO DAILY multivitamin Tablet 1 tab PO DAILY famotidine 20 mg Tablet 20 mg PO BID ascorbic acid (vitamin C) [Vitamin C] 500 mg Tablet 1,000 mg PO BID duloxetine 30 mg capsule,delayed release(DR/EC) 1 cap PO BEDTIME cholecalciferol (vitamin D3) [Vitamin D3] 50 mcg (2,000 unit) Capsule 50 mcg PO DAILY melatonin 5 mg Capsule 10 mg PO BEDTIME PRN (Reason: Insomnia) B12 Active 1,000 mcg Tablet,Chewable 1,000 mcg PO DAILY sodium bicarbonate 650 mg tablet 1 tab PO BID zinc sulfate 50 mg zinc (220 mg) capsule 1 cap PO DAILY potassium chloride 20 mEq tablet,ER particles/crystals 1 tab PO DAILY insulin lispro [Humalog U-100 Insulin] 100 unit/mL Solution See Protocol subcut QIDACHS Qty: 1 0RF Protocol: Insulin Correction Scale Less than or equal to 110 ---- Give (units): 0 111 to 150 Give (units): 0 151 to 200 Give (units): 2 201 to 250 Give (units): 4 251 to 300 Give (units): 6 301 to 350 Give (units): 8 Greater than 350 Give (units): 10 Call MD if Blood Glucose > : 350 acetaminophen 325 mg Tablet 650 mg PO Q6H PRN (Reason: Pain) loperamide 2 mg Capsule 2 mg PO Q8H PRN (Reason: Loose Stool) calcium carbonate 500 mg calcium (1,250 mg) Tablet 1,000 mg PO BID Saccharomyces boulardii 250 mg Capsule 250 mg PO DAILY sitagliptin 25 mg Tablet 25 mg PO DAILY Discontinued carvedilol 25 mg tablet 1 tab PO BID hydralazine 50 mg Tablet 50 mg PO TID Qty: 90 0RF Discharge Orders: Discharge Order (Routine); Ordered 11/24/21 Ordered By: Liban Cameron Diet: Advance to usual diet Activity on Discharge: As tolerated Stand Alone Forms: Patient Portal Discharge page Care Plan Goals: Full recovery from renal failure and weaknesss Health Concerns: Urinary retention Hydronephrosis Renal failure Plan of Treatment: continue above medications, follow up with Dr. Kang Hydralazine has been changed from 50 mg 3 times a day to 25 mg 3 times a day Coreg (Carvedilol) has been changed from 25 mg twice a day to 12.5 mg twice a day Nystatin powder to be applied to groin area Assessment: as above Discharge Date/Time: 11/24/21 15:30
[2021-11-24 11:35] VITALS: BP 147/74; PULSE 76; RESP 18; TEMP 36.6; O2SAT 97
--- NOTE | 2021-11-24 11:43 | PM.UROPN ---
Subjective Subjective Date of Service: 11/24/21 Patient reports: no new complaints Interval history: 80-year-old male with chronic kidney disease stage 4, history of recurrent nephrolithiasis who was brought to the emergency department from SNF due to weakness, poor oral intake since testing positive for covid on 11/12 with no report of significant respiratory symptoms.?ED workup including? lab work showed? elevated creat above his baseline, creatine of 4.82, BUN of 64. He had recent admission 10/29/2021 and was evaluated by Urology for left hydronephrosis, Dr. Kang placed left ureteral stent, creat at time of that discharge was 2.9. Renal function has improved since admission essentially back to baseline. Physical Exam Vital Signs: Vital Signs: Last Vital Signs Temp 97.8 F 11/24/21 11:35 Pulse 76 11/24/21 11:35 Resp 18 11/24/21 11:35 BP 147/74 H 11/24/21 11:35 Pulse Ox 97 11/24/21 11:35 O2 Del Method 11/24/21 11:35 BMI result Body Mass Index 22.4 Urology Results Labs CBC & Chem 7: 11/20/21 16:56 11/24/21 07:38 Labs: Laboratory Results - last 24 hr 11/24/21 07:38 Sodium 145 Potassium 4.4 Chloride 111 H Carbon Dioxide 20 L Anion Gap 18 BUN 31 H Creatinine 3.05 H Estim Creat Clear Calc 18.7 Estimated GFR 20 Random Glucose 151 H Calcium 9.0 Progress Note: A&P Assessment and plan (1) ESTUARDO (acute kidney injury): Status: Acute (2) Hydronephrosis: Status: Acute Plan (1) ESTUARDO (acute kidney injury): ?Status:?Acute (2) Hydronephrosis: ?Status:?Acute (3) Diabetes type 2, controlled: ?Status:?Acute (4) Urinary retention: ?Status:?Acute Plan ESTUARDO--renal function improved with hydration Left hydro s/p stent-- Renal sono notes stent in the kidney, 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
[2021-11-24 13:11] LABS: Glucose, Whole Blood 204 mg/dL (60-115)
[2021-11-24] MEDS: amLODIPine Besylate 5 MG TABLET PO (13:33)
[2021-11-24] MEDS: carvediloL 12.5 MG TABLET PO (13:33)
[2021-11-24] MEDS: Insulin Lispro 100 UNIT/ML 3 ML VIAL SUBCUT (13:33)
--- NOTE | 2021-11-24 14:03 | PM.PNNEP ---
Subjective Subjective Date of Service: 11/24/21 Interval history: seen and examined at bedside updated no complaints Physical Exam Vital Signs: Vital Signs: Last Vital Signs Temp 97.8 F 11/24/21 11:35 Pulse 76 11/24/21 11:35 Resp 18 11/24/21 11:35 BP 147/74 H 11/24/21 11:35 Pulse Ox 97 11/24/21 11:35 O2 Del Method 11/24/21 11:35 BMI result Body Mass Index 22.4 Const: General: no acute distress HEENT: Head: Yes normocephalic and Yes atraumatic Neck: Neck: Yes supple Resp: Auscultation: diminished lung sounds Cardio: Heart sounds: S1 normal heart sound present and S2 normal heart sound present GI: Palpation (GI): Soft to palpation and nontender Extrem: General: No edema Objective Data Labs CBC & Chem 7: 11/20/21 16:56 11/24/21 07:38 Labs: Laboratory Results - last 24 hr 11/24/21 11/24/21 07:38 13:07 Sodium 145 Potassium 4.4 Chloride 111 H Carbon Dioxide 20 L Anion Gap 18 BUN 31 H Creatinine 3.05 H Estim Creat Clear Calc 18.7 Estimated GFR 20 POC Glucose 204 H Random Glucose 151 H Calcium 9.0 Procedures Date of Service Date of Service: 11/24/21 Assessment & Plan Assessment and plan (1) ESTUARDO (acute kidney injury): Status: Acute (2) Hydronephrosis: Status: Acute (3) CKD (chronic kidney disease) stage 4, GFR 15-29 ml/min: Status: Acute Plan kidney function improving ESTUARDO due to renal hypoperfusion and obstructive uropathy s/p left renal stent known CKD baseline Scr 2-2.5 mg/dl REC discontinue IVF if taking adequate oral intake follow kidney function and electrolytes Time Spent With Patient Time: Total time spent is greater than 50% in coordination of care (as documented) at patient's floor/unit and/or counseling patient: Progress Note: Quality Stroke Does the patient have a stroke diagnosis?: No
[2021-11-24 14:45] VITALS: BP 139/67; PULSE 79; RESP 16; TEMP 36.6; O2SAT 98
--- NOTE | 2021-11-24 15:31 | PC.NURSE ---
1500-pt discharge information reviewed with pt and . Questions answered. pt dressed with 1 assist.
== END 2021-11-24 15:30 | disposition home health service (06) | DRG 682 ==
LOC: HO.ED 17:22 → HO.EDOVER 18:44 → HO.IMC 11-21 17:35
PROVIDERS: Admitting Provider Internal Medicine; Emergency Provider Emergency Medicine Emergency Medical Services; PCP Internal Medicine; Visit Provider Internal Medicine
DX: N17.9 Acute kidney failure, unspecified (principal); U07.1 COVID-19; E87.20 Acidosis, unspecified; N13.30 Unspecified hydronephrosis; I12.9 Hypertensive chronic kidney disease with stage 1 through stage 4 chronic kidney disease, or unspecified chronic kidney disease; N18.4 Chronic kidney disease, stage 4 (severe); E11.22 Type 2 diabetes mellitus with diabetic chronic kidney disease; E86.0 Dehydration; E87.5 Hyperkalemia; F43.10 Post-traumatic stress disorder, unspecified; Z87.440 Personal history of urinary (tract) infections; Z93.3 Colostomy status; Z85.038 Personal history of other malignant neoplasm of large intestine; Z87.442 Personal history of urinary calculi; Z86.73 Personal history of transient ischemic attack (TIA), and cerebral infarction without residual deficits; Z88.5 Allergy status to narcotic agent; Z88.8 Allergy status to other drugs, medicaments and biological substances; Z79.4 Long term (current) use of insulin; Z79.82 Long term (current) use of aspirin; Z79.899 Other long term (current) drug therapy
CPT/HCPCS: 36415; 71045; 76775; 80048; 82947; 85025; 87635; 93005; 97110; 97162; 97530; 99285; C1758; J2405

== ENCOUNTER 2021-12-16 09:07 | Inpatient (IN) | payer OTHER, SELFPAY ==
[2021-12-16] VITALS (8 sets, daily range): BP systolic 93–154; BP diastolic 44–100; PULSE 70–100; RESP 12–18; TEMP 36.1–36.9; O2SAT 98; BMI 19.9
--- NOTE | ~2021-12-16 | CT_ITS ---
EXAMINATION: CT HEAD WITHOUT CONTRAST CLINICAL INFORMATION: Altered mental status. COMPARISON: CT scan of the head 02/10/2021. TECHNIQUE: Contiguous axial imaging was performed from the skull base to vertex without intravenous administration of contrast. This CT examination was performed using dose optimization techniques as appropriate, variously including the following: *Automated exposure control *Adjustment of mA and/or kV according to patient size (this includes techniques or standardized protocols for targeted exams where dose is matched to indication/reason for exam; i.e. extremities or head) *Use of iterative reconstruction technique DLP: 747 mGy-cm FINDINGS: There are numerous foci of hypoattenuation within the periventricular white matter, basal ganglia, and thalami that most likely represent a chronic manifestation of small vessel ischemia. Nunez-white matter projection is otherwise preserved and there is no evidence of acute territorial infarct. There is no acute hemorrhage or abnormal extra-axial collection. Lateral and third ventricles are normal. No hydrocephalus. The calvarium and skull base are intact. No mastoid or middle ear effusion. No active paranasal sinus disease. CT/CT head/brain wo IV con IMPRESSION: There are numerous chronic small vessel ischemic changes as described above. No evidence of acute territorial infarct or hemorrhage.
--- NOTE | ~2021-12-16 | US_ITS ---
EXAMINATION: US RETROPERITONEAL LIMITED (RENAL ONLY) CLINICAL INFORMATION: Follow up hydronephrosis. COMPARISON: CT abdomen and pelvis without contrast dated 12/16/2021. Renal ultrasound dated 11/23/2021. TECHNIQUE: Real-time imaging of the kidneys. FINDINGS: RIGHT KIDNEY: 11.7 x 4.8 x 4.7 cm (SAG x AP x TRV). The kidney is normal in size, and contour. Renal cortical echogenicity may be increased. There are several small cysts. Renal cortical thickness is normal. No renal calculi or hydronephrosis. LEFT KIDNEY: 9.6 x 4.8 x 4.4 cm (SAG x AP x TRV). The kidney is normal in size, and contour. Renal cortical echogenicity may be increased.. Renal cortical thickness is normal. There is mild left hydronephrosis. This is decreased in size from recent exams. The proximal end of the right ureteral stent is seen. US/US renal BI IMPRESSION: Mild left hydronephrosis decreased from recent exams.
--- NOTE | ~2021-12-16 | US_ITS ---
EXAMINATION: US RETROPERITONEAL LIMITED (RENAL ONLY) CLINICAL INFORMATION: ESTUARDO, stents, rule out obstruction. COMPARISON: Renal ultrasound 12/25/2021 TECHNIQUE: Real-time imaging of the kidneys. FINDINGS: RIGHT KIDNEY: 11.3 x 5.1 x 4.7 cm (SAG x AP x TRV). The kidney is normal in size, contour, and echogenicity. Renal cortical thickness is normal. No calculi or focal parenchymal lesions. No hydronephrosis. Multiple simple cysts. LEFT KIDNEY: 10.8 x 9.3 x 8.1 cm (SAG x AP x TRV). The kidney is normal in size, contour, and echogenicity. Renal cortical thickness is normal. There is severe hydronephrosis. The proximal portion of the stent is visualized. US/US renal BI IMPRESSION: Severe left hydronephrosis. The proximal portion of the stent is visualized.
--- NOTE | ~2021-12-16 | CT_ITS ---
EXAMINATION: CT ABDOMEN AND PELVIS WITHOUT CONTRAST CLINICAL INFORMATION: Abdominal pain. No other pertinent history provided, including history regarding prior malignancy and/or prior surgeries. COMPARISON: CT scans of the abdomen and pelvis dating between 10/29/2021 and 06/09/2018. TECHNIQUE: Multidetector volumetric imaging was performed from the superior aspect of the liver through the pubic symphysis. Sagittal and coronal reformatted images were obtained on the technologist's workstation. This CT examination was performed using dose optimization techniques as appropriate, variously including the following: *Automated exposure control *Adjustment of mA and/or kV according to patient size (this includes techniques or standardized protocols for targeted exams where dose is matched to indication/reason for exam; i.e. extremities or head) *Use of iterative reconstruction technique DLP: 632 mGy-cm FINDINGS: Limited by lack of oral and intravenous contrast. LUNG BASES: Limited by motion. Grossly unremarkable. LIVER, GALLBLADDER, AND BILIARY TREE: At least 5, less than 2 cm, round, hypodense lesions without significant radiographic change coordinator more than 3 years, therefore representing benign entities, such as simple cysts and/or hemangiomata. The liver otherwise appears unremarkable in size, shape, and attenuation. No suspicious focal hepatic lesion or biliary ductal dilatation is appreciated on this noncontrast study. Mildly distended gallbladder measuring approximately 5 cm in diameter. No evidence of pericholecystic inflammatory change. PANCREAS: Unremarkable SPLEEN: Unremarkable ADRENAL GLANDS: Mild right adrenal thickening, unchanged. Left adrenal gland not clearly visualized. KIDNEYS AND URETERS: The proximal loop of a new left double-J ureteral stent lies within a left extrarenal pelvis, and distal loop lies within the urinary bladder at the UVJ. Severe right hydronephrosis and hydroureter at least roughly to the level where the ureter crosses over the iliac vessels. Left renal cortical atrophy. The hydronephrosis and hydroureter appear similar compared with most recent prior CT scan from 10/29/2021 despite the presence of a new left ureteral stent. Suspect long segment left ureteral wall thickening and induration of adjacent fat roughly from the UPJ to at least the level where the ureter crosses over the iliac vessels. Approximately 0.6 cm, nonobstructing left mid renal collecting system stone. Multiple surgical clips generally anterior to the left extrarenal pelvis, unchanged. The right kidney appears unremarkable in size, shape, and attenuation. No hydronephrosis, hydroureter, or calculi seen on the right. BLADDER: Unremarkable GASTROINTESTINAL TRACT/PELVIC VISCERA: Limited by lack of oral contrast. Patient status proctectomy and left lower quadrant colostomy, unchanged compared with most recent prior. Stellate soft tissue density and surgical clips in the presacral space, presumably in the surgical bed of proctectomy, unchanged. Right lower quadrant bowel anastomotic kimmy. Colonic diverticulosis without evidence of diverticulitis. ABDOMINAL WALL: Left lower quadrant enterostomy. Vertical midline anterior abdominal wall incisional scar. No significant hernia is appreciated. LYMPH NODES: No evidence of adenopathy by size criteria. VASCULAR: Unremarkable OSSEOUS STRUCTURES: Decreased bone mineral density. Mild degenerative changes of the spine and hips. Benign L4 hemangioma. CT/CT abdomen pelvis wo IV con IMPRESSION: Apart from abdominal pain, no pertinent history is provided, including history regarding prior malignancy and/or prior surgeries. Recommend clinical correlation. The study is further limited by lack of oral and intravenous contrast. Status post left double-J ureteral stent, new compared with most recent prior CT scan from 10/29/2021. Left hydronephrosis and hydroureter appear unchanged. Multiple additional findings, as detailed above, without significant radiographic change.
--- NOTE | ~2021-12-16 | FL_ITS ---
EXAMINATION: XR FL WITH IMAGES CLINICAL INFORMATION: Ureteral stent placement. COMPARISON: CT abdomen and pelvis 12/16/2021. TECHNIQUE: Fluoroscopy performed by Dr. Clement Kang. Fluoroscopy Time: 140.8 seconds. Cumulative Dose: 33.48 mGy. Images: 6. FINDINGS: The upper portion of the double-J stent is seen on the left with a double-J stent present on the right as well. Final film shows the distal ends of both ureteral stents overlying the pelvis. Multiple surgical clips are noted in the right iliac fossa and left upper quadrant. FL/FL guidance in OR IMPRESSION: Fluoroscopy and spot films provided to Dr. Clement Kang. Please see his note for complete procedure details.
--- NOTE | ~2021-12-16 | IR_ITS ---
PROCEDURE: IR INSERTION OF TUNNEL CATHETER CLINICAL INFORMATION: Renal failure. COMPARISON: None TECHNIQUE: Procedure and risks and benefits including bleeding, infection and pneumothorax were discussed with the patient and his , and informed consent was obtained. All elements of maximal sterile barrier technique followed including use of cap, mask, sterile gown, sterile gloves, a sterile full body drape and hand hygiene. Also followed skin preparation with 2% chlorhexidine for cutaneous antisepsis, and sterile ultrasound preparation with sterile gel and probe cover when applicable. The right neck and chest were prepped and draped in the usual sterile fashion. The skin and soft tissues were anesthetized with 1% lidocaine plain. A small incision in the right lower neck was made. Using ultrasound guidance and a 5-Nauruan micropuncture system, right internal jugular vein access was obtained. Over an 0.018 wire, a 5-Nauruan dilator was positioned in the SVC. Skin and soft tissues of the right upper anterior chest were anesthetized with 1% lidocaine plain. A subcutaneous tunnel was anesthetized with 1% lidocaine plain. Using a tunneler, a 14.5-Nauruan 19 cm in length permacath was tunneled from the chest and the neck incision. An 0.035 guidewire was advanced through the 5-Nauruan dilator into the IVC. Following serial dilatation and through a peel-away sheath, catheter was advanced centrally. Neck incision was closed using a 4-0 absorbable subcuticular suture. Chest incision was closed using a 4-0 absorbable mattress suture. Real-time ultrasound guidance was used to document vein patency and for needle entry. A formal ultrasound picture was recorded. Patient received 0.5 mg Versed and 25 mcg fentanyl during the procedure. Total sedation time was 25 minutes with [id number] contact and direct supervision of nurse who provided continuous hemodynamic monitoring. IMAGES: 1 saved fluoroscopic image. FLUOROSCOPY TIME: 0.4 minutes. DAP: 22 cGy-cm2. FINDINGS: There is a 14.5-Nauruan 19 cm in length GlidePath permacath with tip projecting over the cavoatrial junction. IR/IR cvc insert central tunnel IMPRESSION: Right internal jugular permacath placement.
--- NOTE | ~2021-12-16 | IR_ITS ---
EXAMINATION: XA IR ultrasound-guided venous access Permacath placement. See combined XA IR CVC Insert Central Tunnel Catheter report from the same day.
--- NOTE | ~2021-12-16 | XR_ITS ---
EXAMINATION: XR CHEST CLINICAL INFORMATION: Altered mental status. COMPARISON: 11/20/2021. TECHNIQUE: AP view of the chest was obtained. XR/XR chest 1V FINDINGS/IMPRESSION: The left costophrenic angle is cut off the film. The study is otherwise essentially unremarkable. No infiltrate, pneumothorax, or gross effusion is seen. The cardiovascular structures, mediastinum, visualized diaphragm, bones and soft tissues appear unremarkable.
--- NOTE | 2021-12-16 09:24 | ED_ITS ---
HPI - General Adult General Chief complaint: Urogenital-Male Stated complaint: AMS,AGITATED,?UTI PER EMS Time Seen by Provider: 12/16/21 09:24 Source: patient, family () and EMS Mode of arrival: EMS Limitations: altered mental status History of Present Illness HPI narrative: Patient is an 81 year old assigned male at with a history of dementia, kidney disease, colostomy, and recent UTI presenting to the emergency department today with worsening lethargy and worsening altered mental status. EMS states that the patient is on day 4 of 5 of levofloxacin for a urinary tract infection but the individual at the home states the patient has been acting more confused and more agitated. EMS states that the patient did not have any recent falls or trauma. Patient's states that the patient had to have a stent placed in his left kidney by Dr. Kang the last time he was here and the stent is still in place at this time. Patient's states that the patient is still making urine and last urinated this morning. Onset (ago): day(s) Severity: moderate Severity scale (1-10): 4 Related Data Home Medications Medication Instructions Recorded Confirmed amlodipine 5 mg tablet 1 tab PO BID 08/26/20 12/16/21 ascorbic acid (vitamin C) 500 mg 1,000 mg PO BID 08/26/20 12/16/21 tablet (Vitamin C) aspirin 25 mg-dipyridamole 200 mg 1 cap PO BID 08/26/20 12/16/21 capsule,ext.release 12 hr multiphase atorvastatin 10 mg tablet 10 mg PO BEDTIME 08/26/20 12/16/21 cholecalciferol (vitamin D3) 50 50 mcg PO DAILY 08/26/20 12/16/21 mcg (2,000 unit) capsule (Vitamin D3) coenzyme Q10 100 mg capsule 200 mg PO DAILY 08/26/20 12/16/21 (CoQ-10) docusate sodium 100 mg capsule 100 mg PO DAILY 08/26/20 12/16/21 (Colace) duloxetine 30 mg capsule,delayed 1 cap PO BEDTIME 08/26/20 12/16/21 release famotidine 20 mg tablet 20 mg PO BID 08/26/20 12/16/21 mecobalamin (vitamin B12) 1,000 1,000 mcg PO DAILY 08/26/20 12/16/21 mcg chewable tablet (B12 Active) melatonin 5 mg capsule 10 mg PO BEDTIME PRN Insomnia 08/26/20 12/16/21 multivitamin 1 tab PO DAILY 08/26/20 12/16/21 potassium chloride 20 mEq 1 tab PO DAILY 10/04/21 12/16/21 tablet,extended release(part/cryst) sodium bicarbonate 650 mg tablet 1 tab PO BID 10/04/21 12/16/21 zinc sulfate 50 mg zinc (220 mg) 1 cap PO DAILY 10/04/21 12/16/21 capsule Saccharomyces boulardii 250 mg 250 mg PO DAILY 11/20/21 12/16/21 capsule acetaminophen 325 mg tablet 650 mg PO Q6H PRN Pain 11/20/21 12/16/21 calcium carbonate 500 mg calcium 1,000 mg PO BID 11/20/21 12/16/21 (1,250 mg) tablet sitagliptin 25 mg tablet 25 mg PO DAILY 11/20/21 12/16/21 magnesium oxide 420 mg tablet 1 tab PO BID 12/16/21 12/16/21 Previous Rx's Medication Instructions Recorded carvedilol 12.5 mg tablet 12.5 mg PO BID #60 tabs 11/24/21 hydralazine 25 mg tablet 25 mg PO TID #90 tabs 11/24/21 nystatin 100,000 unit/gram topical 1 appl topical BID #60 grams 11/24/21 powder ([facility]) Allergies Allergy/AdvReac Type Severity Reaction Status Date / Time erythromycin base Allergy Severe TREMORS Verified 08/26/20 12:00 [ERYTHROMYCIN BASE] morphine [MORPHINE] Allergy Severe HALLUCINATI Verified 08/26/20 12:00 ONS oxycodone [From Percocet] AdvReac Intermediate agitation Verified 10/15/21 10:59 prochlorperazine AdvReac dystonia Verified 10/15/21 10:59 [From Compazine] Review of Systems Review of Systems: Yes Unobtainable due to mental status Constitutional: Constitutional: Reports no additional constitutional complaints, Denies chills, Denies fever(s) and Denies night sweats Eyes: Eyes: Reports no additional eye complaints, Denies blurry vision, Denies change in vision, Denies diplopia, Denies eye discharge, Denies loss of vision and Denies eye pain ENT: Denies dizziness Cardiovascular: Cardiovascular: Reports no additional cardiovascular complaints, Denies chest pain, Denies lightheadedness, Denies Loss of Consciousness and Denies dyspnea Respiratory: Respiratory: Reports no additional respiratory complaints and Denies dyspnea Gastrointestinal: Gastrointestinal: Reports no additional gastrointestinal complaints, Denies abdominal pain, Denies melena, Denies hematochezia, Denies change in bowel habits and Denies change in stool character Genitourinary: Genitourinary: Reports no additional male genitourinary com plaints, Denies hematuria, Denies oliguria, Denies difficulty urinating, Denies dysuria, Denies urinary frequency, Denies urinary hesitancy, Denies urinary incontinence and Denies urinary urgency Musculoskeletal: Musculoskeletal: Reports no additional musculoskeletal complaints, Denies numbness and Denies tingling Neurologic: Reports confusion, Denies dizziness, Denies loss of vision, Denies numbness and Denies tingling Psychiatric: Psychiatric: Reports confusion Endocrine: Endocrine: Reports no additional endocrine complaints Hematologic/Lymphatic: Hematologic/Lymphatic: Reports no additional hematologic/lymphatic complaints Allergic/Immunologic: Allergic/Immunologic: Reports no additional allergic/immunologic complaints [facility] Past Medical History Attestation statement: The following information was validated with the patient. Source: old records reviewed Medical History Agitation Cancer of kidney Chronic post-traumatic stress disorder (PTSD) Chronic UTI CKD (chronic kidney disease) stage 4, GFR 15-29 ml/min Colon cancer Colostomy in place Delirium Diabetes type 2, controlled Hematuria High cholesterol HTN (hypertension) Hydronephrosis Hydronephrosis Hydroureter Kidney stone PTSD (post-traumatic stress disorder) Pyuria Stroke Family History Family History Father Stroke Social History Social History Household Members: Other Housing: [facility] Alcohol intake: never Patient Tobacco Use Status: Never used Tobacco Advance Directives: Yes Advance Directives on File: Yes Advance Directives Date on File: 10/15/21 service: Yes Current occupational status: retired Physical Exam ED Vital Signs: Vital Signs - 24 hr 12/16/21 09:15 12/16/21 10:31 12/16/21 13:35 Temperature 97.9 F 98.4 F Pulse Rate 73 76 86 Respiratory Rate 16 12 16 Blood Pressure 151/74 H 132/66 135/76 Pulse Oximetry 98 98 98 Oxygen Delivery Method Room Air Room Air Room Air BMI result Body Mass Index 19.9 Const General: confusion Nutritional Appearance: well nourished Orientation/consciousness: confusion Limitations: no limitations HENMT Head: Yes normal to inspection and Yes atraumatic Ears: hearing grossly normal bilaterally and external ears normal General nose exam: Normal external nose present, no nasal discharge noted and no epistaxis Face and sinus: Yes normal facial exam, No abrasion and No laceration Mouth: Normal oral and palatal mucosa present, no drooling and no muffled voice Eyes General: appearance normal, both eyes and all related structures Periorbital: periorbital findings normal Eyelids: Yes eyelids normal Conjunctivae: conjunctivae normal Pupils: Equal, round and reactive pupils present EOM: EOMs intact bilaterally Neck Neck: Yes normal visual inspection, Yes full ROM and Yes no lymphadenopathy Chest Chest palpation & inspection: normal inspection of the chest Resp Effort & Inspection: normal respiratory effort and able to speak in complete sentences Auscultation: clear to auscultation bilaterally Cardio Rate: regular rate Rhythm: regular rhythm GI Other: colostomy present to the left lower abdomen, actively draining appropriately colored stool Neuro General: confusion and Unable to assess gait Cranial nerves: Yes Equal, round and reactive pupils present Cognition (Neuro): abnormal cognition Gait exam (Neuro): Unable to assess gait Extrem General: Yes normal to inspection, Yes full ROM and Yes capillary refill normal Psych Appearance: grossly normal Mental Status: mental status grossly normal Affect: normal affect Attitude: cooperative Thought process: Normal thought process present Thought content: Normal thought content present Insight: Good insight present (Psych) Medical Decision Making [facility] Narrative Medical decision making narrative: Patient is an 81 year old assigned male at with a history of ESTUARDO, CKD, hydronephrosis, and kidney cancer presenting to the emergency department today with worsening confusion and lethargy. Patient's physical exam was as documented previously in this chart with an ostomy present on the left side of the abdomen and a pleasantly confused individual. Patient's blood work showed a carbon dioxide of 6, anion gap of 24, BUN of 128, creatinine of 9.69, and magnesium of 1.1. Patient's magnesium was repleted while in the department. Patient's EKG was unremarkable. Patient's chest x-ray and head CT showed no acute process. Patient's abdominal CT showed significant hydronephrosis of the left side with a stent in place. I spoke to the urologist sewing techniques demonstrator who recommended the patient be admitted medically and added to the OR schedule tomorrow for a kidney stent replacement. I spoke to the supervisor concrete block plant sewing techniques demonstrator who recommended the patient get started on a D5W drop with sodium bicarb 150 mEq at a rate of 150cc / hr. I spoke to the hospitalist who agreed to admission. I explained my physical exam findings as well as all test results to the patient and the patient's . I answered all questions asked by the patient and the patient's . Patient and the patient's verbalized agreement and understanding with this treatment plan and admission. Medical Records Medical records reviewed: Yes I reviewed the patient's medical records. Lab Data Lab results reviewed: Yes I reviewed the patient's lab results. Result diagrams: 12/16/21 11:00 12/16/21 11:00 Labs: Lab Results 12/16/21 12/16/21 12/16/21 Range/Units 11:00 11:00 11:00 WBC 9.1 (4.8-10.8) X10*3/uL RBC 3.31 L D (4.60-5.80) X10*6/uL Hgb 9.0 L (14.0-18.0) g/dl Hct 27.1 L D (42.0-52.0) % MCV 81.9 (80.0-98.0) fL MCH 27.2 (27.0-33.0) pg MCHC 33.2 (31.0-36.0) g/dl RDW 18.4 H (11.0-16.0) % Plt Count 200 (160-400) X10*3/uL MPV 10.9 (9.4-12.4) fL Immature Gran % (Auto) 0.4 (0.0-0.4) % Neut % (Auto) 66.0 (45-73) % Lymph % (Auto) 19.8 L (20-40) % Stafford % (Auto) 12.0 H (2-11) % Eos % (Auto) 1.4 (0-4) % Baso % (Auto) 0.4 (0-2) % Lymph # (Auto) 1.8 (1.2-4.9) X10*3/uL Stafford # (Auto) 1.1 (0.1-1.2) X10*3/uL Eos # (Auto) 0.1 (0.0-0.4) X10*3/uL Baso # (Auto) 0.0 (0.0-0.2) X10*3/uL Abs Immat Gran (auto) 0.04 H (0.00-0.03) X10*3/uL Absolute Neuts (auto) 6.0 (2.0-8.3) x10*3/uL Absolute Nucleated RBC 0.000 (0.0-0.012) X10*3/uL Nucleated RBC % (auto) 0.0 (0.0-0.2) /100WBC VBG pH (7.32-7.43) VBG pCO2 mmHg VBG pO2 mmHg VBG HCO3 (22-26) mmol/L VBG O2 Saturation % VBG Base Excess mmol/L Sodium 140 (135-145) mmol/L Potassium 3.7 (3.3-5.1) mmol/L Chloride 114 H (96-108) mmol/L Carbon Dioxide 6 L* D (22-29) mmol/L Anion Gap 24 H (12-20) BUN 128 H D (9-16) mg/dL Creatinine 9.69 H* (0.5-1.4) mg/dL Estim Creat Clear Calc 5.1 Estimated GFR 5 Random Glucose 146 H (60-115) mg/dL Calcium 8.0 L D (8.4-10.2) mg/dL Magnesium 1.1 L* (1.6-2.6) mg/dL Total Bilirubin 0.7 (0.0-1.0) mg/dL AST 14 (5-37) U/L ALT 14 (0-40) U/L Alkaline Phosphatase 92 (39-117) U/L Troponin I High Sens 37.4 H D (<3.5-35.0) ng/L Total Protein 6.6 (6.5-8.0) g/dL Albumin 3.5 (3.5-5.0) g/dL Influenza Type A (PCR) (Negative) Influenza Type B (PCR) (Negative) RSV RNA Qual (PCR) (Negative) SARS-CoV-2 RNA (RT-PCR) (Negative) 12/16/21 12/16/21 12/16/21 Range/Units 11:00 13:23 14:49 WBC (4.8-10.8) X10*3/uL RBC (4.60-5.80) X10*6/uL Hgb (14.0-18.0) g/dl Hct (42.0-52.0) % MCV (80.0-98.0) fL MCH (27.0-33.0) pg MCHC (31.0-36.0) g/dl RDW (11.0-16.0) % Plt Count (160-400) X10*3/uL MPV (9.4-12.4) fL Immature Gran % (Auto) (0.0-0.4) % Neut % (Auto) (45-73) % Lymph % (Auto) (20-40) % Stafford % (Auto) (2-11) % Eos % (Auto) (0-4) % Baso % (Auto) (0-2) % Lymph # (Auto) (1.2-4.9) X10*3/uL Stafford # (Auto) (0.1-1.2) X10*3/uL Eos # (Auto) (0.0-0.4) X10*3/uL Baso # (Auto) (0.0-0.2) X10*3/uL Abs Immat Gran (auto) (0.00-0.03) X10*3/uL Absolute Neuts (auto) (2.0-8.3) x10*3/uL Absolute Nucleated RBC (0.0-0.012) X10*3/uL Nucleated RBC % (auto) (0.0-0.2) /100WBC VBG pH 7.22 L (7.32-7.43) VBG pCO2 18 mmHg VBG pO2 115 mmHg VBG HCO3 7 L (22-26) mmol/L VBG O2 Saturation 99.0 % VBG Base Excess -17.8 mmol/L Sodium (135-145) mmol/L Potassium (3.3-5.1) mmol/L Chloride (96-108) mmol/L Carbon Dioxide (22-29) mmol/L Anion Gap (12-20) BUN (9-16) mg/dL Creatinine (0.5-1.4) mg/dL Estim Creat Clear Calc Estimated GFR Random Glucose (60-115) mg/dL Calcium (8.4-10.2) mg/dL Magnesium (1.6-2.6) mg/dL Total Bilirubin (0.0-1.0) mg/dL AST (5-37) U/L ALT (0-40) U/L Alkaline Phosphatase (39-117) U/L Troponin I High Sens 44.6 H (<3.5-35.0) ng/L Total Protein (6.5-8.0) g/dL Albumin (3.5-5.0) g/dL Influenza Type A (PCR) NEGATIVE (Negative) Influenza Type B (PCR) NEGATIVE (Negative) RSV RNA Qual (PCR) NEGATIVE (Negative) SARS-CoV-2 RNA (RT-PCR) NEGATIVE (Negative) Imaging Data CT scan - head: Attestation: I personally reviewed and interpreted this imaging study as follows: My impression: No acute process. Radiologist's impression: EXAMINATION: CT HEAD WITHOUT CONTRAST CLINICAL INFORMATION: Altered mental status.? COMPARISON: CT scan of the head 02/10/2021. TECHNIQUE: Contiguous axial imaging was performed from the skull base to vertex without intravenous administration of contrast. This CT examination was performed using dose optimization techniques as appropriate, variously including the following: *Automated exposure control *Adjustment of mA and/or kV according to patient size (this includes techniques or standardized protocols for targeted exams where dose is matched to indication/reason for exam; i.e. extremities or head) *Use of iterative reconstruction technique DLP: 747 mGy-cm FINDINGS: There are numerous foci of hypoattenuation within the periventricular white matter, basal ganglia, and thalami that most likely represent a chronic manifestation of small vessel ischemia. Nunez-white matter projection is otherwise preserved and there is no evidence of acute territorial infarct. There is no acute hemorrhage or abnormal extra-axial collection. Lateral and third ventricles are normal. No hydrocephalus. The calvarium and skull base are intact. No mastoid or middle ear effusion. No active paranasal sinus disease. ? CT/CT head/brain wo IV con IMPRESSION: There are numerous chronic small vessel ischemic changes as described above. No evidence of acute territorial infarct or hemorrhage. Dictated By: Gulshan Branch MD Signed By: Electronically signed by Gulshan Branch MD 12/16/21 1021 Chest x-ray: Attestation: I personally reviewed and interpreted this imaging study as follows: My impression: No acute process. Radiologist's impression: EXAMINATION: XR CHEST CLINICAL INFORMATION: Altered mental status. COMPARISON: 11/20/2021. TECHNIQUE: AP view of the chest was obtained. XR/XR chest 1V FINDINGS/IMPRESSION: ? The left costophrenic angle is cut off the film. ? The study is otherwise essentially unremarkable. ? No infiltrate, pneumothorax, or gross effusion is seen. The cardiovascular structures, mediastinum, visualized diaphragm, bones and soft tissues appear unremarkable. Dictated By: Hunter Pearce Signed By: Electronically signed by Hunter Pearce 12/16/[address] scan - abdomen: Attestation: I personally reviewed and interpreted this imaging study as follows: My impression: Hydronephrosis with stent visible in left kidney Radiologist's impression: EXAMINATION: CT ABDOMEN AND PELVIS WITHOUT CONTRAST? CLINICAL INFORMATION: Abdominal pain. No other pertinent history provided, including history regarding prior malignancy and/or prior surgeries. COMPARISON: CT scans of the abdomen and pelvis dating between 10/29/2021 and 06/09/2018.? TECHNIQUE: Multidetector volumetric imaging was performed from the superior aspect of the liver through the pubic symphysis. Sagittal and coronal reformatted images were obtained on the technologist's workstation.? This CT examination was performed using dose optimization techniques as appropriate, variously including the following: *Automated exposure control *Adjustment of mA and/or kV according to patient size (this includes techniques or standardized protocols for targeted exams where dose is matched to indication/reason for exam; i.e. extremities or head) *Use of iterative reconstruction technique DLP: 632 mGy-cm FINDINGS: Limited by lack of oral and intravenous contrast. LUNG BASES: Limited by motion. Grossly unremarkable.? LIVER, GALLBLADDER, AND BILIARY TREE: At least 5, less than 2 cm, round, hypodense lesions without significant radiographic roll changer more than 3 years, therefore representing benign entities, such as simple cysts and/or hemangiomata. The liver otherwise appears unremarkable in size, shape, and attenuation. No suspicious focal hepatic lesion or biliary ductal dilatation is appreciated on this noncontrast study. Mildly distended gallbladder measuring approximately 5 cm in diameter. No evidence of pericholecystic inflammatory change.? PANCREAS: Unremarkable? SPLEEN: Unremarkable? ADRENAL GLANDS: Mild right adrenal thickening, unchanged. Left adrenal gland not clearly visualized.? KIDNEYS AND URETERS: The proximal loop of a new left double-J ureteral stent lies within a left extrarenal pelvis, and distal loop lies within the urinary bladder at the UVJ. Severe right hydronephrosis and hydroureter at least roughly to the level where the ureter crosses over the iliac vessels. Left renal cortical atrophy. The hydronephrosis and hydroureter appear similar compared with most recent prior CT scan from 10/29/2021 despite the presence of a new left ureteral stent. Suspect long segment left ureteral wall thickening and induration of adjacent fat roughly from the UPJ to at least the level where the ureter crosses over the iliac vessels. Approximately 0.6 cm, nonobstructing left mid renal collecting system stone. Multiple surgical clips generally anterior to the left extrarenal pelvis, unchanged. The right kidney appears unremarkable in size, shape, and attenuation. No hydronephrosis, hydroureter, or calculi seen on the right. ? BLADDER: Unremarkable? GASTROINTESTINAL TRACT/PELVIC VISCERA: Limited by lack of oral contrast. Patient status proctectomy and left lower quadrant colostomy, unchanged compared with most recent prior. Stellate soft tissue density and surgical clips in the presacral space, presumably in the surgical bed of proctectomy, unchanged. Right lower quadrant bowel anastomotic kimmy. Colonic diverticulosis without evidence of diverticulitis. ABDOMINAL WALL: Left lower quadrant enterostomy. Vertical midline anterior abdominal wall incisional scar. No significant hernia is appreciated.? LYMPH NODES: No evidence of adenopathy by size criteria. VASCULAR: Unremarkable OSSEOUS STRUCTURES: Decreased bone mineral density. Mild degenerative changes of the spine and hips. Benign L4 hemangioma.? CT/CT abdomen pelvis wo IV con IMPRESSION: ? Apart from abdominal pain, no pertinent history is provided, including history regarding prior malignancy and/or prior surgeries. Recommend clinical correlation. The study is further limited by lack of oral and intravenous contrast. ? Status post left double-J ureteral stent, new compared with most recent prior CT scan from 10/29/2021. Left hydronephrosis and hydroureter appear unchanged. ? Multiple additional findings, as detailed above, without significant radiographic change. Dictated By: Hunter Pearce Signed By: Electronically signed by Justina 12/16/21 1344 ECG Data Attestation: I personally reviewed and interpreted this ECG as follows: Prior ECG tracings: available for review Interpretation: Vent. Rate: 080 BPM ? ? Atrial Rate: 080 BPM P-R Int: 164 ms? QRS Dur: 150 ms QT Int: 446 ms ? ? ? P-R-T Axes: 079 -75 083 degrees QTc Int: 514 ms ? Normal sinus rhythm Left axis deviation Non-specific intra-ventricular conduction block Minimal voltage criteria for LVH, may be normal variant ( Phillip product ) Abnormal ECG When compared with ECG of 20-NOV-2021 18:25, No significant change was found [id number]/ [id number] Critical Care Time Critical Care Time Critical Care Time: Yes Total Critical Care Time: 30 Attestation: I spent 30 minutes of Critical Care Time with this patient. This does not include time spent on separately reported billable procedures. Discharge Plan Discharge Patient Disposition: Admitted As Inpatient Prescriptions: No Action aspirin-dipyridamole 25-200 mg Capsule, Er Multiphase 12 Hr 1 cap PO BID atorvastatin 10 mg Tablet 10 mg PO BEDTIME amlodipine 5 mg tablet 1 tab PO BID docusate sodium [Colace] 100 mg capsule 100 mg PO DAILY coenzyme Q10 [CoQ-10] 100 mg Capsule 200 mg PO DAILY multivitamin Tablet 1 tab PO DAILY famotidine 20 mg Tablet 20 mg PO BID ascorbic acid (vitamin C) [Vitamin C] 500 mg Tablet 1,000 mg PO BID duloxetine 30 mg capsule,delayed release(DR/EC) 1 cap PO BEDTIME cholecalciferol (vitamin D3) [Vitamin D3] 50 mcg (2,000 unit) Capsule 50 mcg PO DAILY melatonin 5 mg Capsule 10 mg PO BEDTIME PRN (Reason: Insomnia) B12 Active 1,000 mcg Tablet,Chewable 1,000 mcg PO DAILY magnesium oxide 420 mg tablet 1 tab PO BID sodium bicarbonate 650 mg tablet 1 tab PO BID zinc sulfate 50 mg zinc (220 mg) capsule 1 cap PO DAILY potassium chloride 20 mEq tablet,ER particles/crystals 1 tab PO DAILY acetaminophen 325 mg Tablet 650 mg PO Q6H PRN (Reason: Pain) calcium carbonate 500 mg calcium (1,250 mg) Tablet 1,000 mg PO BID Saccharomyces boulardii 250 mg Capsule 250 mg PO DAILY sitagliptin 25 mg Tablet 25 mg PO DAILY nystatin [Nyamyc] 100,000 unit/gram powder 1 appl topical BID Qty: 60 0RF Rx Instructions: Apply to groin area bid carvedilol 12.5 mg Tablet 12.5 mg PO BID Qty: 60 0RF Protocol: Hold for SBP/HR < HOLD for SBP < : 90 HOLD for HR < : 60 hydralazine 25 mg tablet 25 mg PO TID Qty: 90 0RF Print Language: Uruguayan
--- NOTE | 2021-12-16 09:25 | ECG_ITS ---
Test Reason : AMS Blood Pressure : / mmHG Vent. Rate : 080 BPM Atrial Rate : 080 BPM P-R Int : 164 ms QRS Dur : 150 ms QT Int : 446 ms P-R-T Axes : 079 -75 083 degrees QTc Int : 514 ms Normal sinus rhythm Left anterior fascicular block T-wave inversion in Lateral leads Incomplete right bundle branch block Minimal voltage criteria for LVH, may be normal variant ( Sterling product ) Abnormal ECG When compared with ECG of 20-NOV-2021 18:25, T-wave inversion in Lateral leads is new Referred By: Savita Thurston Electronically Signed By:SHOSHANA CHEN MD
[2021-12-16] MEDS: LORazepam 1 MG TABLET 2 MG PO (10:12)
[2021-12-16 11:15] LABS: MANUAL DIFF FLAG NO
[2021-12-16 11:20] LABS: Basophils Percent Auto 0.4 % (0-2); Eosinophils Absolute Auto 0.1 X10*3/uL (0.0-0.4); Eosinophils Percent Auto 1.4 % (0-4); Hematocrit 27.1 % (42.0-52.0); Imm Gran Abs Auto 0.04 X10*3/uL (0.00-0.03); Imm Gran Pct Auto 0.4 % (0.0-0.4); Lymphocytes Absolute Auto 1.8 X10*3/uL (1.2-4.9); Lymphocytes Percent Auto 19.8 % (20-40); Mean Corpuscular HGB Conc 33.2 g/dl (31.0-36.0); Mean Corpuscular Hemoglobin 27.2 pg (27.0-33.0); Mean Corpuscular Volume 81.9 fL (80.0-98.0); Mean Platelet Volume 10.9 fL (9.4-12.4); Monocytes Absolute Auto 1.1 X10*3/uL (0.1-1.2); Platelet Count 200 X10*3/uL (160-400); Red Blood Count 3.31 X10*6/uL (4.60-5.80); Red Cell Distribution Width 18.4 % (11.0-16.0); White Blood Count 9.1 X10*3/uL (4.8-10.8)
[2021-12-16 11:42] LABS: Troponin-I High Sensitivity 37.4 ng/L (<3.5-35.0)
--- NOTE | 2021-12-16 11:58 | PHA.MEDREC ---
Addendum entered by Satish Nevarez 12/16/21 12:13: Patient's informed me that patient had not taken final dose of levofloxacin 500mg today. Spoke with Savita Thurston via [employer] in regards to last dose of levofloxacin not taken by patient prior to admission. Left out of med rec at this time. Original Note: Pharmacy Consult ? Medication Reconciliation Pharmacy has completed the medication reconciliation. Called PT's to confirm meds. She states all meds from previous discharge (11/24) are correct, however the pt has poor adherence to the medications. She states being able to administer carvedilol and hydralazine to pt. However, all other meds the patient takes are poorly tolerated by patient and they end up refusing the medication.
[2021-12-16 11:59] LABS: Influenza A PCR NEGATIVE (Negative); Influenza B PCR NEGATIVE (Negative); Resp Syncy Virus RNA Qual PCR NEGATIVE (Negative); SARS COV2 PCR INHOUSE NEGATIVE (Negative)
[2021-12-16 12:09] LABS: Alanine Aminotransferase 14 U/L (0-40); Albumin Level 3.5 g/dL (3.5-5.0); Alkaline Phosphatase 92 U/L (39-117); Anion Gap 24 (12-20); Aspartate Amino Transferase 14 U/L (5-37); Bilirubin Total 0.7 mg/dL (0.0-1.0); Blood Urea Nitrogen 128 mg/dL (9-16); Carbon Dioxide 6 mmol/L (22-29); Chloride 114 mmol/L (96-108); Creatinine Clr Calc Pharmacy 5.1; Estimated Glomerular Filt Rate 5; Glucose Random 146 mg/dL (60-115); Magnesium 1.1 mg/dL (1.6-2.6); Potassium 3.7 mmol/L (3.3-5.1); Sodium 140 mmol/L (135-145); Total Protein 6.6 g/dL (6.5-8.0)
[2021-12-16] MEDS: Magnesium Sulfate/H2O 2 GM/50 ML PIGGYBACK IV (12:20)
[2021-12-16 13:48] LABS: Troponin-I High Sensitivity 44.6 ng/L (<3.5-35.0)
--- NOTE | 2021-12-16 14:47 | P.CONNP_ITS ---
History of Present Illness Reason for Consult Consult date: 12/16/21 Reason for consult: ESTUARDO and ACidosis. Chief Complaint Chief complaint: AMS,AGITATED,?UTI PER EMS History of Present Illness Narrative: Mr. 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 Mr Vernon presents in critical condition to [facility]. He is essentially obtunded, profoundly hypovolemic, tachypneic with a life threatening metabolic acidsois, and severe renal failure on CKD. CT abd.pelvis reveals failed left nephro-reuteral stenting as his severe left hydro has not changed since placement of the stent. Review of Systems Review of Systems Yes Unobtainable due to mental status PMFSH Past Medical History Medical History (Updated 12/16/21 @ 14:55 by Galo Mark MD) Agitation Cancer of kidney Chronic post-traumatic stress disorder (PTSD) Chronic UTI CKD (chronic kidney disease) stage 4, GFR 15-29 ml/min Colon cancer Colostomy in place Delirium Diabetes type 2, controlled Hematuria High cholesterol HTN (hypertension) Hydronephrosis Hydronephrosis Hydroureter Kidney stone PTSD (post-traumatic stress disorder) Pyuria Stroke Family History Family History Father Stroke Social History Social History Household Members: Other Housing: Residential Alcohol intake: never Patient Tobacco Use Status: Never used Tobacco Advance Directives: Yes Advance Directives on File: Yes Advance Directives Date on File: 10/15/21 service: Yes Current occupational status: retired Meds Allergies Allergy/AdvReac Type Severity Reaction Status Date / Time erythromycin base Allergy Severe TREMORS Verified 08/26/20 12:00 [ERYTHROMYCIN BASE] morphine [MORPHINE] Allergy Severe HALLUCINATI Verified 08/26/20 12:00 ONS oxycodone [From Percocet] AdvReac Intermediate agitation Verified 10/15/21 10:59 prochlorperazine AdvReac dystonia Verified 10/15/21 10:59 [From Compazine] Active Medications: Current Medications Sodium Bicarbonate 150 meq/ (Dextrose) 1,000 mls @ 150 mls/hr IV .Q6H40M PENDING SALE TO [facility] Pharmacy Consult (Consult Rx Perform Med Rec) 1 each MISCELLANE ONCE PRN PRN Reason: Consult order Home Medications Medication Instructions Recorded Confirmed Last Taken Type amlodipine 5 mg tablet 1 tab PO BID 08/26/20 12/16/21 10/14/21 History ascorbic acid (vitamin C) 500 mg 1,000 mg PO BID 08/26/20 12/16/21 10/14/21 History tablet (Vitamin C) aspirin 25 mg-dipyridamole 200 mg 1 cap PO BID 08/26/20 12/16/21 10/14/21 History capsule,ext.release 12 hr multiphase atorvastatin 10 mg tablet 10 mg PO BEDTIME 08/26/20 12/16/21 10/14/21 History cholecalciferol (vitamin D3) 50 50 mcg PO DAILY 08/26/20 12/16/21 10/14/21 History mcg (2,000 unit) capsule (Vitamin D3) coenzyme Q10 100 mg capsule 200 mg PO DAILY 08/26/20 12/16/21 10/14/21 History (CoQ-10) docusate sodium 100 mg capsule 100 mg PO DAILY 08/26/20 12/16/21 10/14/21 History (Colace) duloxetine 30 mg capsule,delayed 1 cap PO BEDTIME 08/26/20 12/16/21 10/14/21 History release famotidine 20 mg tablet 20 mg PO BID 08/26/20 12/16/21 10/14/21 History mecobalamin (vitamin B12) 1,000 1,000 mcg PO DAILY 08/26/20 12/16/21 10/14/21 History mcg chewable tablet (B12 Active) melatonin 5 mg capsule 10 mg PO BEDTIME PRN Insomnia 08/26/20 12/16/21 10/14/21 History multivitamin 1 tab PO DAILY 08/26/20 12/16/21 10/14/21 History potassium chloride 20 mEq 1 tab PO DAILY 10/04/21 12/16/21 10/14/21 History tablet,extended release(part/cryst) sodium bicarbonate 650 mg tablet 1 tab PO BID 10/04/21 12/16/21 10/14/21 History zinc sulfate 50 mg zinc (220 mg) 1 cap PO DAILY 10/04/21 12/16/21 10/14/21 History capsule Saccharomyces boulardii 250 mg 250 mg PO DAILY 11/20/21 12/16/21 Unknown History capsule acetaminophen 325 mg tablet 650 mg PO Q6H PRN Pain 11/20/21 12/16/21 Unknown History calcium carbonate 500 mg calcium 1,000 mg PO BID 11/20/21 12/16/21 Unknown History (1,250 mg) tablet sitagliptin 25 mg tablet 25 mg PO DAILY 11/20/21 12/16/21 Unknown History magnesium oxide 420 mg tablet 1 tab PO BID 12/16/21 12/16/21 Unknown History Physical Exam Vital Signs: Last Vital Signs Temp 98.4 F 12/16/21 10:31 Pulse 86 12/16/21 13:35 Resp 16 12/16/21 13:35 BP 135/76 12/16/21 13:35 Pulse Ox 98 12/16/21 13:35 O2 Del Method 12/16/21 13:35 BMI result Body Mass Index 19.9 Const Other: Obtunded. HEENT Other: Very dry mucous membranes Eyes Other: No scleral icterus. Resp Other: Tachypneic. CTAB otherwise Cardio Jugular venous distension: no JVD Rate: tachycardic GI Other: Ostomy in place Other: Non-tender bladder. 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 1. ESTUARDO on CKD In the setting of profound hypovolemia & hydronephrosis refractory to left stent Left lubulation of kidney likely kidney cancer 2. AGMA 2/2 renal failure GFR <15 2/2 GI lossess from ostomy 3. Hypocalcemia, Hypomagnesemia ? Renal wasting syndrome pt also on PPI for GERD 4. Profound Hypovolemia 5. Hydronephrosis failed stenting patient likely needs Left Nephrostomy tube, I am worried with the extent of his left renal pelvic mass that a re-stent will not work and his hydro will never get better leading thim to ESRD. Plan: - Please advocate for Left Nephrostomy tube - NaBicarb 150meq/L at 150cc/hr stat - q4 hour iCa and Electrolytes to monitor deficiency as Bicarb gtt can lead to Hypocalcemia etc - replete Mag stat - The Bicarb gtt is isotonic so this will help hypovolemia - no PHP SOFTWARE ENGINEER yet, but may soon need dialysis - Patient's 1st pressman on web press expressed concern that Mr. Mireles outpatient team is not able to adequately follow his progressie renal failure. She expressed wishes to transfer care to [facility] through [facility]. She will notify her outpatient team. Galo Mark MD Procedures Date of Service Date of Service: 12/16/21
[2021-12-16 14:58] LABS: Venous Blood Gas Refer to POC result
[2021-12-16 14:59] LABS: VBG Base Excess -17.8 mmol/L; VBG HCO3 7 mmol/L (22-26); VBG pCO2 18 mmHg; VBG pH 7.22 (7.32-7.43); VBG pO2 115 mmHg
--- NOTE | 2021-12-16 15:48 | PM.IMHP ---
History of Present Illness Date of Service: 12/16/21 Chief Complaint: altered mental status History as per the patient's , as he is somnolent. 81 year-old man with CKD4, kidney cancer, recurrent nephrolithiasis, colon CA s/p colostomy, essential HTN, DM2, and PTSD who presents today with worsening confusion with alternating lethargy and agitated delirium for the past 2 days. He was started on levofloxacin by his urologist 5 days ago for suspicion of UTI given that his urine was becoming cloudy and darker. He has complained of severe nausea but has not vomited. He was recently admitted here 11/20-11/24/21 wiith ESTUARDO/CKD4 due to dehydration attributed to Covid-19 infection. Prior to that, he was admitted here 11/01-11/05/21 with ESTUARDO/CKD and underwent cystoscopy and left stent placement. In the ED, his creatinine was markedly elevated to 9.69 compared to his baseline of 3.05 on 11/24/21. BUN was 128 and serum bicarbonate 6. Nephrology was urgently consulted. He was started on isotonic bicarbonate infusion. Magnesium was low at 1.1 and he was given 2g of IV magnesium sulfate. Review of Systems Review of Systems: Yes Unobtainable due to mental condition and Unobtainable due to mental status PMFSH Medical History Agitation Cancer of kidney Chronic post-traumatic stress disorder (PTSD) Chronic UTI CKD (chronic kidney disease) stage 4, GFR 15-29 ml/min Colon cancer Colostomy in place Delirium Diabetes type 2, controlled Hematuria High cholesterol HTN (hypertension) Hydronephrosis Hydronephrosis Hydroureter Kidney stone PTSD (post-traumatic stress disorder) Pyuria Stroke Family History Father Stroke Social History Household Members: Other Housing: Custodial Alcohol intake: never Patient Tobacco Use Status: Never used Tobacco Advance Directives: Yes Advance Directives on File: Yes Advance Directives Date on File: 10/15/21 service: Yes Current occupational status: retired Meds Allergies Allergy/AdvReac Type Severity Reaction Status Date / Time erythromycin base Allergy Severe TREMORS Verified 08/26/20 12:00 [ERYTHROMYCIN BASE] morphine [MORPHINE] Allergy Severe HALLUCINATI Verified 08/26/20 12:00 ONS oxycodone [From Percocet] AdvReac Intermediate agitation Verified 10/15/21 10:59 prochlorperazine AdvReac dystonia Verified 10/15/21 10:59 [From Compazine] Active Medications: Current Medications Amlodipine Besylate (Amlodipine Besylate 5 Mg Tablet) 5 mg PO BID [facility]; Protocol Atorvastatin Calcium (Atorvastatin Calcium 10 Mg Tablet) 10 mg PO BEDTIME [facility] Calcium Carbonate (Calcium Carbonate 500 Mg Tablet) 1,000 mg PO BID [facility] Dipyridamole/Aspirin (Aspirin/Dipyridamole Er 25/200 Cpmp.12hr) 1 cap PO BID [facility] Hydralazine HCl (Hydralazine Hcl 25 Mg Tablet) 25 mg PO TID [facility]; Protocol Sodium Bicarbonate 150 meq/ (Dextrose) 1,000 mls @ 150 mls/hr IV .Q6H40M [facility] Non-Formulary Medication (Magnesium Oxide) 1 tab PO BID [facility] Nystatin (Nystatin Powder 15 Gm Bottle) 1 appl TOPICAL BID [facility]; Protocol Pharmacy Consult (Consult Rx Perform Med Rec) 1 each MISCELLANE ONCE PRN PRN Reason: Consult order Home Medications Medication Instructions Recorded Confirmed Last Taken Type amlodipine 5 mg tablet 1 tab PO BID 08/26/20 12/16/21 10/14/21 History ascorbic acid (vitamin C) 500 mg 1,000 mg PO BID 08/26/20 12/16/21 10/14/21 History tablet (Vitamin C) aspirin 25 mg-dipyridamole 200 mg 1 cap PO BID 08/26/20 12/16/21 10/14/21 History capsule,ext.release 12 hr multiphase atorvastatin 10 mg tablet 10 mg PO BEDTIME 08/26/20 12/16/21 10/14/21 History cholecalciferol (vitamin D3) 50 50 mcg PO DAILY 08/26/20 12/16/21 10/14/21 History mcg (2,000 unit) capsule (Vitamin D3) coenzyme Q10 100 mg capsule 200 mg PO DAILY 08/26/20 12/16/21 10/14/21 History (CoQ-10) docusate sodium 100 mg capsule 100 mg PO DAILY 08/26/20 12/16/21 10/14/21 History (Colace) duloxetine 30 mg capsule,delayed 1 cap PO BEDTIME 08/26/20 12/16/21 10/14/21 History release famotidine 20 mg tablet 20 mg PO BID 08/26/20 12/16/21 10/14/21 History mecobalamin (vitamin B12) 1,000 1,000 mcg PO DAILY 08/26/20 12/16/21 10/14/21 History mcg chewable tablet (B12 Active) melatonin 5 mg capsule 10 mg PO BEDTIME PRN Insomnia 08/26/20 12/16/21 10/14/21 History multivitamin 1 tab PO DAILY 08/26/20 12/16/21 10/14/21 History potassium chloride 20 mEq 1 tab PO DAILY 10/04/21 12/16/21 10/14/21 History tablet,extended release(part/cryst) sodium bicarbonate 650 mg tablet 1 tab PO BID 10/04/21 12/16/21 10/14/21 History zinc sulfate 50 mg zinc (220 mg) 1 cap PO DAILY 10/04/21 12/16/21 10/14/21 History capsule Saccharomyces boulardii 250 mg 250 mg PO DAILY 11/20/21 12/16/21 Unknown History capsule acetaminophen 325 mg tablet 650 mg PO Q6H PRN Pain 11/20/21 12/16/21 Unknown History calcium carbonate 500 mg calcium 1,000 mg PO BID 11/20/21 12/16/21 Unknown History (1,250 mg) tablet sitagliptin 25 mg tablet 25 mg PO DAILY 11/20/21 12/16/21 Unknown History magnesium oxide 420 mg tablet 1 tab PO BID 12/16/21 12/16/21 Unknown History Physical Exam Vital Signs and Narrative: Vital Signs: Last Vital Signs Temp 98.4 F 12/16/21 10:31 Pulse 86 12/16/21 13:35 Resp 16 12/16/21 13:35 BP 135/76 12/16/21 13:35 Pulse Ox 98 12/16/21 13:35 O2 Del Method 12/16/21 13:35 BMI result Body Mass Index 19.9 Gen: ill appearing, somnolent HEENT: sclera anicteric, moist mucus membranes Neck: supple Lungs: clear to auscultation bilaterally Heart: regular rate and rhythm, no murmurs Abd: soft, non-tender, non-distended, colostomy in place draining liquid brown stool Ext: no edema Skin: warm/well-perfused Neuro: somnolent, awakens only briefly Psych: impaired insight Results Labs CBC and Chem 7: 12/16/21 11:00 12/16/21 11:00 Labs: Laboratory Results - last 24 hr 12/16/21 12/16/21 12/16/21 11:00 11:00 11:00 MCV 81.9 MCH 27.2 MCHC 33.2 RDW 18.4 H Plt Count 200 MPV 10.9 Immature Gran % (Auto) 0.4 Neut % (Auto) 66.0 Lymph % (Auto) 19.8 L [place] % (Auto) 12.0 H Eos % (Auto) 1.4 Baso % (Auto) 0.4 Lymph # (Auto) 1.8 [place] # (Auto) 1.1 Eos # (Auto) 0.1 Baso # (Auto) 0.0 Abs Immat Gran (auto) 0.04 H Absolute Neuts (auto) 6.0 Absolute Nucleated RBC 0.000 Nucleated RBC % (auto) 0.0 VBG pH VBG pCO2 VBG pO2 VBG HCO3 VBG O2 Saturation VBG Base Excess Anion Gap 24 H Estim Creat Clear Calc 5.1 Estimated GFR 5 Random Glucose 146 H Calcium 8.0 L D Magnesium 1.1 L* Total Bilirubin 0.7 AST 14 ALT 14 Alkaline Phosphatase 92 Troponin I High Sens 37.4 H D Total Protein 6.6 Albumin 3.5 Influenza Type A (PCR) Influenza Type B (PCR) RSV RNA Qual (PCR) SARS-CoV-2 RNA (RT-PCR) 12/16/21 12/16/21 12/16/21 11:00 13:23 14:49 MCV MCH MCHC RDW Plt Count MPV Immature Gran % (Auto) Neut % (Auto) Lymph % (Auto) [place] % (Auto) Eos % (Auto) Baso % (Auto) Lymph # (Auto) [place] # (Auto) Eos # (Auto) Baso # (Auto) Abs Immat Gran (auto) Absolute Neuts (auto) Absolute Nucleated RBC Nucleated RBC % (auto) VBG pH 7.22 L VBG pCO2 18 VBG pO2 115 VBG HCO3 7 L VBG O2 Saturation 99.0 VBG Base Excess -17.8 Anion Gap Estim Creat Clear Calc Estimated GFR Random Glucose Calcium Magnesium Total Bilirubin AST ALT Alkaline Phosphatase Troponin I High Sens 44.6 H Total Protein Albumin Influenza Type A (PCR) NEGATIVE Influenza Type B (PCR) NEGATIVE RSV RNA Qual (PCR) NEGATIVE SARS-CoV-2 RNA (RT-PCR) NEGATIVE Imaging Radiologist's Impressions: Impressions Chest X-Ray 12/16/21 10:03 FINDINGS/IMPRESSION: The left costophrenic angle is cut off the film. The study is otherwise essentially unremarkable. No infiltrate, pneumothorax, or gross effusion is seen. The cardiovascular structures, mediastinum, visualized diaphragm, bones and soft tissues appear unremarkable. Head CT 12/16/21 10:05 IMPRESSION: There are numerous chronic small vessel ischemic changes as described above. No evidence of acute territorial infarct or hemorrhage. Abdomen/Pelvis CT 12/16/21 12:23 IMPRESSION: Apart from abdominal pain, no pertinent history is provided, including history regarding prior malignancy and/or prior surgeries. Recommend clinical correlation. The study is further limited by lack of oral and intravenous contrast. Status post left double-J ureteral stent, new compared with most recent prior CT scan from 10/29/2021. Left hydronephrosis and hydroureter appear unchanged. Multiple additional findings, as detailed above, without significant radiographic change. Assessment and Plan (1) Acute kidney injury: Status: Acute (2) CKD (chronic kidney disease) stage 4, GFR 15-29 ml/min: Status: Acute (3) Metabolic acidosis: Status: Acute (4) Hydronephrosis: Status: Acute (5) Metabolic encephalopathy: Status: Acute Plan # ESTUARDO/CKD4 - suspect due to renal obstruction; failed stenting; will admit to [facility] [place], make NPO and order IR nephrostomy. Urology and Nephrology consults # severe metabolic acidosis - started on isotonic bicarbonate drip. repeat electrolytes now + check ABG; if worsening acidosis, will consult ICU # metabolic encephalopathy - suspect due to uremia/ESTUARDO # hypoMg - due to renal wasting; replete IV and recheck level # hx CVA - continue Aggrenox # HTN - carvedilol + hydralazine + amlodipine # DM2 - hold sitagliptin, give correction-dose lispro # VTE ppx: SCDs, hold heparin for anticipated nephrostomy # code: full I anticipate that the patient will stay at least 2 midnights as an inpatient in the hospital due to the above reasons. It is neither reasonable nor safe to care for them in a less acute setting. Quality Stroke Does the patient have a stroke diagnosis?: No VTE Prior VTE?: No VTE Risk Level:: Medical - moderate - high VTE Device Contraindication: N/A - Device Ordered VTE Drug Contraindication: N/A - Med Ordered
[2021-12-16] MEDS: Sodium Bicarbonate 8.4% 150 MEQ in Dextrose 5 % 850 ML IV ×2 (16:30→23:13)
[2021-12-16 17:47] LABS: VBG Base Excess -16.4 mmol/L; VBG HCO3 8 mmol/L (22-26); VBG pCO2 18 mmHg; VBG pH 7.25 (7.32-7.43); VBG pO2 59 mmHg
[2021-12-16 17:48] LABS: Venous Blood Gas Refer to POC result
--- NOTE | 2021-12-16 18:23 | PC.NURSE ---
pt was inc of urine ,huma care given ,bedding change , at bedside
[2021-12-16 18:31] LABS: Glucose, Whole Blood 163 mg/dL (60-115)
[2021-12-16] MEDS: Insulin Lispro 100 UNIT/ML 3 ML VIAL SUBCUT ×2 (18:45→20:51)
[2021-12-16 18:49] LABS: Anion Gap 24 (12-20); Blood Urea Nitrogen 124 mg/dL (9-16); Calcium 8.2 mg/dL (8.4-10.2); Carbon Dioxide 7 mmol/L (22-29); Chloride 114 mmol/L (96-108); Creatinine Clr Calc Pharmacy 5.1; Estimated Glomerular Filt Rate 5; Glucose Random 160 mg/dL (60-115); Magnesium 1.7 mg/dL (1.6-2.6); Potassium 3.6 mmol/L (3.3-5.1); Sodium 141 mmol/L (135-145)
[2021-12-16] MEDS: Famotidine 20 MG TABLET PO (20:44)
[2021-12-16] MEDS: LORazepam 1 MG TABLET PO (20:44)
[2021-12-16] MEDS: amLODIPine Besylate 5 MG TABLET PO (20:44)
[2021-12-16] MEDS: Magnesium Oxide 400 MG TABLET PO (20:44)
[2021-12-16] MEDS: carvediloL 12.5 MG TABLET PO (20:44)
[2021-12-16] MEDS: Atorvastatin Calcium 10 MG TABLET PO (20:45)
[2021-12-16] MEDS: hydrALAZINE HCl 25 MG TABLET PO (20:45)
[2021-12-16 20:56] LABS: Glucose, Whole Blood 161 mg/dL (60-115)
--- NOTE | 2021-12-16 21:30 | PC.NURSE ---
[place] cathether in place and pt reposition ,warm blankets given .
[2021-12-16 22:26] LABS: Appearance Urine Turbid; Color Urine Yellow; Glucose Urine UA Negative (Negative); Leukocyte Esterase Urine Large (3+) (Negative); Nitrite Urine Negative (Negative); PH 5.5 (5.0-9.0); Specific Gravity - Urine 1.015 (1.005-1.025); UMIC TRIGGER UACC YES; Urine Blood Large (3+) (Negative); Urine Ketones Negative (Negative); Urine Protein 300 (3+) mg/dL (Neg-Trace)
[2021-12-16 22:27] LABS: Bacteria Urine 2+ (None Seen); Hyaline Casts Urine 0-2 /LPF (0-2); RBC Urine >20 /HPF (0-2); Squamous Epithelial Cell Urine 0-2 /HPF (0-2); UACC Culture Trigger YES; WBC Urine >50 /HPF (0-5)
[2021-12-17] VITALS (16 sets, daily range): BP systolic 114–167; BP diastolic 50–85; PULSE 66–82; RESP 12–17; TEMP 36.1–36.8; O2SAT 95–99
--- NOTE | 2021-12-17 00:12 | PC.NURSE ---
0000 rounding done ,pt asleep ,call blankenship within reach .
--- NOTE | 2021-12-17 01:42 | PC.NURSE ---
0200 rounding done patient pulled out [place] [facility] ,pt was inc care given ,linen change ,patient is very agitated and combative ,yelling calling staff names , hitting staff ,mouth care given pt reposition warm blanket given ,call blankenship within reach .
[2021-12-17] MEDS: HYDROmorphone HCl 0.5 MG/0.5 ML SYRINGE IVPUSH (03:57)
--- NOTE | 2021-12-17 04:08 | PC.NURSE ---
0400 rounding done ,vs taken ,pt is asleep and is dry .
--- NOTE | 2021-12-17 05:32 | PC.NURSE ---
PT checked for incontinence. Pt dry. Pt screaming. Verbal reassurance and warm blankets given to help relax Pt. Pt given call blankenship. lights dimmed and noise minimized
[2021-12-17] MEDS: Sodium Bicarbonate 8.4% 150 MEQ in Dextrose 5 % 850 ML IV ×3 (05:58→21:57)
--- NOTE | 2021-12-17 06:41 | PC.NURSE ---
Patient slept off/on but would scream out loud but when asked what is wrong patient states I do not know. Patient repositioned for comfort multiple times. medicated for pain.
[2021-12-17 06:54] LABS: Hematocrit 24.2 % (42.0-52.0); Hemoglobin 8.5 g/dl (14.0-18.0); Mean Corpuscular HGB Conc 35.1 g/dl (31.0-36.0); Mean Corpuscular Hemoglobin 27.7 pg (27.0-33.0); Mean Corpuscular Volume 78.8 fL (80.0-98.0); Mean Platelet Volume 11.9 fL (9.4-12.4); Platelet Count 204 X10*3/uL (160-400); Red Blood Count 3.07 X10*6/uL (4.60-5.80); Red Cell Distribution Width 18.2 % (11.0-16.0); White Blood Count 7.8 X10*3/uL (4.8-10.8)
[2021-12-17 07:18] LABS: Glucose, Whole Blood 215 mg/dL (60-115)
[2021-12-17 07:29] LABS: Creatinine Clr Calc Pharmacy 5.5; Estimated Glomerular Filt Rate 6; Glucose Random 228 mg/dL (60-115); Magnesium 1.5 mg/dL (1.6-2.6)
[2021-12-17 07:34] LABS: Anion Gap 23 (12-20); Blood Urea Nitrogen 117 mg/dL (9-16); Carbon Dioxide 15 mmol/L (22-29); Chloride 106 mmol/L (96-108); Sodium 141 mmol/L (135-145)
--- NOTE | 2021-12-17 09:11 | PC.NURSE ---
Pt unable to stay awake during assessment. Knows where he is and the year, however, continues to report being cold and falling back asleep. Yelling out during repositioning
[2021-12-17] MEDS: Magnesium Sulfate/H2O 2 GM/50 ML PIGGYBACK IV (09:19)
[2021-12-17 09:21] LABS: INTERNATIONAL NORM RATIO 1.2 (0.9-1.1); Prothrombin Time 13.8 SEC (10.0-13.1)
[2021-12-17] MEDS: Potassium Chloride/H20 10 MEQ/100 ML PIGGYBACK 100 MEQ IV ×2 (09:22→10:36)
[2021-12-17 09:24] LABS: Partial Thromboplastin Time 28.1 SEC (26.0-36.4)
--- NOTE | 2021-12-17 10:24 | P.PNIM_ITS ---
Subjective Subjective Date of Service: 12/17/21 Interval History: altered mental status. unable to get much history other than endorsing pain. no vomiting. Review of Systems Review of Systems: Yes Unobtainable due to mental status Physical Exam Vital Signs: Vital Signs: Last Vital Signs Temp 97.5 F 12/17/21 07:40 Pulse 73 12/17/21 07:40 Resp 14 12/17/21 07:40 BP 141/69 H 12/17/21 07:40 Pulse Ox 99 12/17/21 07:40 O2 Del Method 12/17/21 07:40 BMI result Body Mass Index 19.9 Gen: ill appearing, somnolent HEENT: sclera anicteric, moist mucus membranes Neck: supple Lungs: clear to auscultation bilaterally Heart: regular rate and rhythm, no murmurs Abd: soft, non-tender, non-distended, colostomy in place draining liquid brown stool Ext: no edema Skin: warm/well-perfused Neuro: somnolent, awakens only briefly Psych: impaired insight Objective Data Active Medications Acetaminophen (Acetaminophen 325 Mg Tablet) 650 mg PO Q6H PRN PRN Reason: Pain, Mild (Pain Scale 1-3) Amlodipine Besylate (Amlodipine Besylate 5 Mg Tablet) 5 mg PO BID [facility]; Protocol Last Admin: 12/17/21 09:39 Dose: Not Given Documented By: CARLEY Non-Admin Reason: See Note Atorvastatin Calcium (Atorvastatin Calcium 10 Mg Tablet) 10 mg PO BEDTIME [facility] Last Admin: 12/16/21 20:45 Dose: 10 mg Documented By: JENNYFER Calcium Carbonate (Calcium Carbonate 500 Mg Tablet) 1,000 mg PO BID [facility] Last Admin: 12/17/21 09:40 Dose: Not Given Documented By: CARLEY Non-Admin Reason: NPO Carvedilol (Carvedilol 12.5 Mg Tablet) 12.5 mg PO BID [facility]; Protocol Last Admin: 12/17/21 09:40 Dose: Not Given Documented By: CARLEY Non-Admin Reason: NPO Cyanocobalamin (Cyanocobalamin (Vitamin B-12) 1,000 Mcg Tablet) 1,000 mcg PO DAILY [facility] Last Admin: 12/17/21 09:40 Dose: Not Given Documented By: CARLEY Non-Admin Reason: NPO Dextrose (Dextrose 50 % 25 Gm/50 Ml Syringe) 25 gm IVPUSH Q15M PRN; Protocol PRN Reason: per Hypoglycemia Standing Ord. Dipyridamole/Aspirin (Aspirin/Dipyridamole Er 25/200 Cpmp.12hr) 1 cap PO BID [facility] Last Admin: 12/17/21 09:40 Dose: Not Given Documented By: CARLEY Non-Admin Reason: NPO Docusate Sodium (Docusate Sodium 100 Mg Capsule) 100 mg PO DAILY [facility] Last Admin: 12/17/21 09:40 Dose: Not Given Documented By: CARLEY Non-Admin Reason: NPO Famotidine (Famotidine 20 Mg Tablet) 20 mg PO BID [facility] Last Admin: 12/17/21 09:40 Dose: Not Given Documented By: CARLEY Non-Admin Reason: NPO Glucose (Glucose Gel 15 Gm Gel..Gram.) 15 gm PO Q15M PRN; Protocol PRN Reason: per Hypoglycemia Standing Ord. Hydralazine HCl (Hydralazine Hcl 25 Mg Tablet) 25 mg PO TID [facility]; Protocol Last Admin: 12/17/21 09:40 Dose: Not Given Documented By: CARLEY Non-Admin Reason: NPO Sodium Bicarbonate 150 meq/ (Dextrose) 1,000 mls @ 150 mls/hr IV .Q6H40M [facility] Last Admin: 12/17/21 05:58 Dose: 150 mls/hr Documented By: JENNYFER Insulin Human Lispro (Insulin Lispro 100 Unit/Ml 3 Ml Vial) 0 unit SUBCUT QIDACHS [facility]; Protocol Last Admin: 12/17/21 09:02 Dose: Not Given Documented By: CARLEY Non-Admin Reason: NPO Magnesium Oxide (Magnesium Oxide 400 Mg Tablet) 400 mg PO BID [facility] Last Admin: 12/17/21 09:40 Dose: Not Given Documented By: CARLEY Non-Admin Reason: NPO Multivitamins/Vitamin C (Multivitamin Tablet) 1 tab PO DAILY [facility] Last Admin: 12/17/21 09:41 Dose: Not Given Documented By: CARLEY Non-Admin Reason: NPO Nystatin (Nystatin Powder 15 Gm Bottle) 1 appl TOPICAL BID [facility]; Protocol Last Admin: 12/17/21 09:40 Dose: Not Given Documented By: CARLEY Non-Admin Reason: NPO Ondansetron HCl (Ondansetron Hcl 4 Mg/2 Ml Vial) 4 mg IVPUSH Q8H PRN PRN Reason: Nausea and Vomiting Pharmacy Consult (Consult Rx Perform Med Rec) 1 each MISCELLANE ONCE PRN PRN Reason: Consult order Sodium Chloride (0.9 % Sodium Chloride Flush 3 Ml Syringe) 3 ml IVFLUSH QSHIFT [facility] Last Admin: 12/17/21 07:36 Dose: Not Given Documented By: CARLEY Non-Admin Reason: IV Running Vitamin D (Cholecalciferol (Vitamin D3) 25 Mcg Tablet) 50 mcg PO DAILY [facility] Last Admin: 12/17/21 09:40 Dose: Not Given Documented By: CARLEY Non-Admin Reason: NPO Zinc Sulfate (Zinc Sulfate 220 Mg Capsule) 50 mg PO DAILY [facility] Last Admin: 12/17/21 09:41 Dose: Not Given Documented By: CARLEY Non-Admin Reason: NPO Labs CBC & Chem 7: 12/17/21 06:03 12/17/21 06:03 Labs: Laboratory Results - last 24 hr 12/16/21 12/16/21 12/16/21 11:00 11:00 11:00 MCV 81.9 MCH 27.2 MCHC 33.2 RDW 18.4 H Plt Count 200 MPV 10.9 Immature Gran % (Auto) 0.4 Neut % (Auto) 66.0 Lymph % (Auto) 19.8 L Hale % (Auto) 12.0 H Eos % (Auto) 1.4 Baso % (Auto) 0.4 Lymph # (Auto) 1.8 Hale # (Auto) 1.1 Eos # (Auto) 0.1 Baso # (Auto) 0.0 Abs Immat Gran (auto) 0.04 H Absolute Neuts (auto) 6.0 Absolute Nucleated RBC 0.000 Nucleated RBC % (auto) 0.0 PT INR APTT VBG pH VBG pCO2 VBG pO2 VBG HCO3 VBG O2 Saturation VBG Base Excess Anion Gap 24 H Estim Creat Clear Calc 5.1 Estimated GFR 5 POC Glucose Random Glucose 146 H Calcium 8.0 L D Magnesium 1.1 L* Total Bilirubin 0.7 AST 14 ALT 14 Alkaline Phosphatase 92 Troponin I High Sens 37.4 H D Total Protein 6.6 Albumin 3.5 Urine Color Urine Appearance Urine pH Ur Specific [place] Urine Protein Urine Glucose (UA) Urine Ketones Urine Blood Urine Nitrite Ur Leukocyte Esterase Urine RBC Urine WBC Ur Squamous Epith Cells Urine Bacteria Hyaline Casts Urine Yeast Influenza Type A (PCR) Influenza Type B (PCR) RSV RNA Qual (PCR) SARS-CoV-2 RNA (RT-PCR) 12/16/21 12/16/21 12/16/21 11:00 13:23 14:49 MCV MCH MCHC RDW Plt Count MPV Immature Gran % (Auto) Neut % (Auto) Lymph % (Auto) Hale % (Auto) Eos % (Auto) Baso % (Auto) Lymph # (Auto) Hale # (Auto) Eos # (Auto) Baso # (Auto) Abs Immat Gran (auto) Absolute Neuts (auto) Absolute Nucleated RBC Nucleated RBC % (auto) PT INR APTT VBG pH 7.22 L VBG pCO2 18 VBG pO2 115 VBG HCO3 7 L VBG O2 Saturation 99.0 VBG Base Excess -17.8 Anion Gap Estim Creat Clear Calc Estimated GFR POC Glucose Random Glucose Calcium Magnesium Total Bilirubin AST ALT Alkaline Phosphatase Troponin I High Sens 44.6 H Total Protein Albumin Urine Color Urine Appearance Urine pH Ur Specific [place] Urine Protein Urine Glucose (UA) Urine Ketones Urine Blood Urine Nitrite Ur Leukocyte Esterase Urine RBC Urine WBC Ur Squamous Epith Cells Urine Bacteria Hyaline Casts Urine Yeast Influenza Type A (PCR) NEGATIVE Influenza Type B (PCR) NEGATIVE RSV RNA Qual (PCR) NEGATIVE SARS-CoV-2 RNA (RT-PCR) NEGATIVE 12/16/21 12/16/21 12/16/21 17:37 17:41 18:15 MCV MCH MCHC RDW Plt Count MPV Immature Gran % (Auto) Neut % (Auto) Lymph % (Auto) Hale % (Auto) Eos % (Auto) Baso % (Auto) Lymph # (Auto) Hale # (Auto) Eos # (Auto) Baso # (Auto) Abs Immat Gran (auto) Absolute Neuts (auto) Absolute Nucleated RBC Nucleated RBC % (auto) PT INR APTT VBG pH 7.25 L VBG pCO2 18 VBG pO2 59 VBG HCO3 8 L VBG O2 Saturation 85.0 VBG Base Excess -16.4 Anion Gap 24 H Estim Creat Clear Calc 5.1 Estimated GFR 5 POC Glucose 163 H Random Glucose 160 H Calcium 8.2 L Magnesium 1.7 Total Bilirubin AST ALT Alkaline Phosphatase Troponin I High Sens Total Protein Albumin Urine Color Urine Appearance Urine pH Ur Specific [place] Urine Protein Urine Glucose (UA) Urine Ketones Urine Blood Urine Nitrite Ur Leukocyte Esterase Urine RBC Urine WBC Ur Squamous Epith Cells Urine Bacteria Hyaline Casts Urine Yeast Influenza Type A (PCR) Influenza Type B (PCR) RSV RNA Qual (PCR) SARS-CoV-2 RNA (RT-PCR) 12/16/21 12/16/21 12/17/21 20:46 21:33 06:03 MCV 78.8 L MCH 27.7 MCHC 35.1 RDW 18.2 H Plt Count 204 MPV 11.9 Immature Gran % (Auto) Neut % (Auto) Lymph % (Auto) Hale % (Auto) Eos % (Auto) Baso % (Auto) Lymph # (Auto) Hale # (Auto) Eos # (Auto) Baso # (Auto) Abs Immat Gran (auto) Absolute Neuts (auto) Absolute Nucleated RBC 0.000 Nucleated RBC % (auto) 0.0 PT INR APTT VBG pH VBG pCO2 VBG pO2 VBG HCO3 VBG O2 Saturation VBG Base Excess Anion Gap Estim Creat Clear Calc Estimated GFR POC Glucose 161 H Random Glucose Calcium Magnesium Total Bilirubin AST ALT Alkaline Phosphatase Troponin I High Sens Total Protein Albumin Urine Color Yellow Urine Appearance Turbid Urine pH 5.5 Ur Specific [place] 1.015 Urine Protein 300 (3+) H Urine Glucose (UA) Negative Urine Ketones Negative Urine Blood Large (3+) H Urine Nitrite Negative Ur Leukocyte Esterase Large (3+) H Urine RBC >20 H Urine WBC >50 H Ur Squamous Epith Cells 0-2 Urine Bacteria 2+ Hyaline Casts 0-2 Urine Yeast Present Influenza Type A (PCR) Influenza Type B (PCR) RSV RNA Qual (PCR) SARS-CoV-2 RNA (RT-PCR) 12/17/21 12/17/21 12/17/21 06:03 07:08 08:38 MCV MCH MCHC RDW Plt Count MPV Immature Gran % (Auto) Neut % (Auto) Lymph % (Auto) Hale % (Auto) Eos % (Auto) Baso % (Auto) Lymph # (Auto) Hale # (Auto) Eos # (Auto) Baso # (Auto) Abs Immat Gran (auto) Absolute Neuts (auto) Absolute Nucleated RBC Nucleated RBC % (auto) PT 13.8 H INR 1.2 H APTT 28.1 VBG pH VBG pCO2 VBG pO2 VBG HCO3 VBG O2 Saturation VBG Base Excess Anion Gap 23 H Estim Creat Clear Calc 5.5 Estimated GFR 6 POC Glucose 215 H Random Glucose 228 H D Calcium 8.0 L Magnesium 1.5 L Total Bilirubin AST ALT Alkaline Phosphatase Troponin I High Sens Total Protein Albumin Urine Color Urine Appearance Urine pH Ur Specific [place] Urine Protein Urine Glucose (UA) Urine Ketones Urine Blood Urine Nitrite Ur Leukocyte Esterase Urine RBC Urine WBC Ur Squamous Epith Cells Urine Bacteria Hyaline Casts Urine Yeast Influenza Type A (PCR) Influenza Type B (PCR) RSV RNA Qual (PCR) SARS-CoV-2 RNA (RT-PCR) Microbiology Microbiology Results: Microbiology 12/16/21 22:37 Urine Culture - Preliminary Urine clean catch - Urine cowart top Culture too young to evaluate. Assessment and Plan (1) Metabolic encephalopathy: Status: Acute (2) Acute kidney injury: Status: Acute (3) Metabolic acidosis: Status: Acute Plan 81 year-old man with CKD4, recurrent nephrolithiasis, colon CA s/p colostomy, essential HTN, DM2, and PTSD who presents today with worsening confusion with alternating lethargy and agitated delirium for the past 2 days.? Found to have ESTUARDO with serum creatinine up to 9.7 from baseline of 3, uremia with BUN of 128, and severe metabolic acidosis with serum bicarbonate of 6 and venous pH of 7.22. # ESTUARDO/CKD4 - suspect due to renal obstruction and has failed stenting. Urology + Nephrology consulted. IR nephrostomy ordered- NPO for procedure. avoid nephrotoxins and monitor BMP. # severe metabolic acidosis - continue isotonic bicarbonate IV drip # metabolic encephalopathy - suspect due to uremia/ESTUARDO; may have toxic component from levofloxacin as well [he was prescribed this empirically for UTI as outpt] # hypoMg - due to renal wasting; replete IV and recheck level # hx CVA - continue Aggrenox for secondary prevention # HTN - continue carvedilol + hydralazine + amlodipine # DM2 - hold sitagliptin, give correction-dose lispro # VTE ppx: SCDs, hold heparin for anticipated nephrostomy # code: full In my clinical judgment, the patient requires continued inpatient hospitalization for the following reasons: severe metahbolic acidosis, ESTUARDO Quality Stroke Does the patient have a stroke diagnosis?: No VTE Prior VTE?: No VTE Risk Level:: Medical - moderate - high VTE Device Contraindication: N/A - Device Ordered VTE Drug Contraindication: N/A - Med Ordered
--- NOTE | 2021-12-17 10:46 | P.CDIC_ITS ---
CDI Concurrent Query Documentation Clarification: PHYSICIAN'S DOCUMENTATION REQUEST Date of Query: 12/17/21 1046 Patient Name: Ronny Vernon Admit Date: 12/16/21 Dear Doctor, A review of the medical record indicates additional documentation may be needed. Please review below and update the documentation accordingly. Clinical Indicators: Risk Factors/Clinical Indicators/Treatments BMI 19.9 5' 10 in height. If possible, please provide an associated diagnosis related to the abnormal BMI, such as: For a BMI <= 20: * Underweight * Weight loss Or: * BMI is not significant * Other (please specify) * Unable to determine Use of terms such as suspected, likely, concern for, or probable (associated with a specific diagnosis that is being evaluated, monitored, or treated as if it exists) are acceptable and can be coded in the inpatient setting, when documented at the time of discharge. Thank you, Clarice Silverman [facility], CDIS Extension: [phone] Please use your independent medical judgment in providing your response. THIS QUERY IS PART OF THE PERMANENT MEDICAL RECORD Provider Response: Other Other Diagnosis: not significant
[2021-12-17 11:39] LABS: Glucose, Whole Blood 262 mg/dL (60-115)
--- NOTE | 2021-12-17 12:01 | PM.PNNEP ---
Subjective Subjective Date of Service: 12/17/21 Interval history: altered mental status. no vomiting. D/W / Med Attending Physical Exam Vital Signs: Vital Signs: Last Vital Signs Temp 97.5 F 12/17/21 07:40 Pulse 74 12/17/21 11:35 Resp 14 12/17/21 11:35 BP 165/68 H 12/17/21 11:35 Pulse Ox 97 12/17/21 11:35 O2 Del Method 12/17/21 11:35 BMI result Body Mass Index 19.9 Const: General: no acute distress Neck: Neck: Yes supple Resp: Auscultation: diminished lung sounds Cardio: Rate: regular rate GI: Palpation (GI): Soft to palpation Neuro: General: moves all extremities Objective Data Labs CBC & Chem 7: 12/17/21 06:03 12/17/21 06:03 Labs: Laboratory Results - last 24 hr 12/16/21 12/16/21 12/16/21 11:00 11:00 13:23 WBC RBC Hgb Hct MCV MCH MCHC RDW Plt Count MPV Absolute Nucleated RBC Nucleated RBC % (auto) PT INR APTT VBG pH VBG pCO2 VBG pO2 VBG HCO3 VBG O2 Saturation VBG Base Excess Sodium 140 Potassium 3.7 Chloride 114 H Carbon Dioxide 6 L* D Anion Gap 24 H BUN 128 H D Creatinine 9.69 H* Estim Creat Clear Calc 5.1 Estimated GFR 5 POC Glucose Random Glucose 146 H Calcium 8.0 L D Magnesium 1.1 L* Total Bilirubin 0.7 AST 14 ALT 14 Alkaline Phosphatase 92 Troponin I High Sens 44.6 H Total Protein 6.6 Albumin 3.5 Urine Color Urine Appearance Urine pH Ur Specific [place] Urine Protein Urine Glucose (UA) Urine Ketones Urine Blood Urine Nitrite Ur Leukocyte Esterase Urine RBC Urine WBC Ur Squamous Epith Cells Urine Bacteria Hyaline Casts Urine Yeast Influenza Type A (PCR) NEGATIVE Influenza Type B (PCR) NEGATIVE RSV RNA Qual (PCR) NEGATIVE SARS-CoV-2 RNA (RT-PCR) NEGATIVE 12/16/21 12/16/21 12/16/21 14:49 17:37 17:41 WBC RBC Hgb Hct MCV MCH MCHC RDW Plt Count MPV Absolute Nucleated RBC Nucleated RBC % (auto) PT INR APTT VBG pH 7.22 L 7.25 L VBG pCO2 18 18 VBG pO2 115 59 VBG HCO3 7 L 8 L VBG O2 Saturation 99.0 85.0 VBG Base Excess -17.8 -16.4 Sodium 141 Potassium 3.6 Chloride 114 H Carbon Dioxide 7 L* Anion Gap 24 H BUN 124 H Creatinine 9.62 H* Estim Creat Clear Calc 5.1 Estimated GFR 5 POC Glucose Random Glucose 160 H Calcium 8.2 L Magnesium 1.7 Total Bilirubin AST ALT Alkaline Phosphatase Troponin I High Sens Total Protein Albumin Urine Color Urine Appearance Urine pH Ur Specific [place] Urine Protein Urine Glucose (UA) Urine Ketones Urine Blood Urine Nitrite Ur Leukocyte Esterase Urine RBC Urine WBC Ur Squamous Epith Cells Urine Bacteria Hyaline Casts Urine Yeast Influenza Type A (PCR) Influenza Type B (PCR) RSV RNA Qual (PCR) SARS-CoV-2 RNA (RT-PCR) 12/16/21 12/16/21 12/16/21 18:15 20:46 21:33 WBC RBC Hgb Hct MCV MCH MCHC RDW Plt Count MPV Absolute Nucleated RBC Nucleated RBC % (auto) PT INR APTT VBG pH VBG pCO2 VBG pO2 VBG HCO3 VBG O2 Saturation VBG Base Excess Sodium Potassium Chloride Carbon Dioxide Anion Gap BUN Creatinine Estim Creat Clear Calc Estimated GFR POC Glucose 163 H 161 H Random Glucose Calcium Magnesium Total Bilirubin AST ALT Alkaline Phosphatase Troponin I High Sens Total Protein Albumin Urine Color Yellow Urine Appearance Turbid Urine pH 5.5 Ur Specific [place] 1.015 Urine Protein 300 (3+) H Urine Glucose (UA) Negative Urine Ketones Negative Urine Blood Large (3+) H Urine Nitrite Negative Ur Leukocyte Esterase Large (3+) H Urine RBC >20 H Urine WBC >50 H Ur Squamous Epith Cells 0-2 Urine Bacteria 2+ Hyaline Casts 0-2 Urine Yeast Present Influenza Type A (PCR) Influenza Type B (PCR) RSV RNA Qual (PCR) SARS-CoV-2 RNA (RT-PCR) 12/17/21 12/17/21 12/17/21 06:03 06:03 07:08 WBC 7.8 RBC 3.07 L Hgb 8.5 L Hct 24.2 L MCV 78.8 L MCH 27.7 MCHC 35.1 RDW 18.2 H Plt Count 204 MPV 11.9 Absolute Nucleated RBC 0.000 Nucleated RBC % (auto) 0.0 PT INR APTT VBG pH VBG pCO2 VBG pO2 VBG HCO3 VBG O2 Saturation VBG Base Excess Sodium 141 Potassium 3.0 L Chloride 106 Carbon Dioxide 15 L Anion Gap 23 H BUN 117 H Creatinine 8.95 H* Estim Creat Clear Calc 5.5 Estimated GFR 6 POC Glucose 215 H Random Glucose 228 H D Calcium 8.0 L Magnesium 1.5 L Total Bilirubin AST ALT Alkaline Phosphatase Troponin I High Sens Total Protein Albumin Urine Color Urine Appearance Urine pH Ur Specific [place] Urine Protein Urine Glucose (UA) Urine Ketones Urine Blood Urine Nitrite Ur Leukocyte Esterase Urine RBC Urine WBC Ur Squamous Epith Cells Urine Bacteria Hyaline Casts Urine Yeast Influenza Type A (PCR) Influenza Type B (PCR) RSV RNA Qual (PCR) SARS-CoV-2 RNA (RT-PCR) 12/17/21 12/17/21 08:38 11:33 WBC RBC Hgb Hct MCV MCH MCHC RDW Plt Count MPV Absolute Nucleated RBC Nucleated RBC % (auto) PT 13.8 H INR 1.2 H APTT 28.1 VBG pH VBG pCO2 VBG pO2 VBG HCO3 VBG O2 Saturation VBG Base Excess Sodium Potassium Chloride Carbon Dioxide Anion Gap BUN Creatinine Estim Creat Clear Calc Estimated GFR POC Glucose 262 H Random Glucose Calcium Magnesium Total Bilirubin AST ALT Alkaline Phosphatase Troponin I High Sens Total Protein Albumin Urine Color Urine Appearance Urine pH Ur Specific [place] Urine Protein Urine Glucose (UA) Urine Ketones Urine Blood Urine Nitrite Ur Leukocyte Esterase Urine RBC Urine WBC Ur Squamous Epith Cells Urine Bacteria Hyaline Casts Urine Yeast Influenza Type A (PCR) Influenza Type B (PCR) RSV RNA Qual (PCR) SARS-CoV-2 RNA (RT-PCR) Microbiology Microbiology Results: Microbiology 12/16/21 22:37 Urine clean catch - Urine cowart top Urine Culture - Preliminary Culture too young to evaluate. Procedures Date of Service Date of Service: 12/17/21 Assessment & Plan Assessment and plan (1) Acute kidney injury: Status: Acute Assessment and Plan: Mr. Ronny Vernon is an 80-year-old retired [employer], with past medical history of CKD stage IV (BL Cr 2.1mg/dL) secondary to obstructive uropathy, several episodes of obstructive nephrolithiasis, severe hydronephrosis of Left kidney, hypomagnesemia, recurrent urosepsis, colon cancer s/p colectomy with chronic metabolic acidosis (not treated) and T2DM. ESTUARDO on CKD In the setting of profound hypovolemia & hydronephrosis refractory to left stent Has GI losses from ostomy; failed stenting patient likely needs Left Nephrostomy tube, that a re-stent may not work C/W NaBicarb 150meq/L at 150cc/hr No HD yet, but may soon need dialysis Patient's expressed concern that Mr. Mireles outpatient team is not able to adequately follow his progressive renal failure She expressed wishes to transfer care to [facility] through [place]. She had notified his old outpatient renal Time Spent With Patient Time: Total time spent is greater than 50% in coordination of care (as documented) at patient's floor/unit and/or counseling patient: Progress Note: Quality Stroke Does the patient have a stroke diagnosis?: No
--- NOTE | 2021-12-17 13:24 | PC.NURSE ---
attempted another iv insertion and infiltrated twice.
--- NOTE | 2021-12-17 13:41 | MHC.CM.PN ---
unable to interview pt he is confused called and spoke with his tra [phone] she explins pt active wth ameydysis for rn ,pt and ot he is 100% disabled thru va he gets mpst of his meds thru v COVID [facility]AX X3 dc plan tbd home with vna and va asitance vs str
--- NOTE | 2021-12-17 13:52 | HO.ANESPROP2 ---
[facility] Active Problems Active Problems: All Active Problems (Updated 12/16/21 @ 15:49 by Lynda Mcmahon MD) Metabolic encephalopathy (Acute) Acute kidney injury (Acute) Metabolic acidosis (Acute) CKD (chronic kidney disease) stage 4, GFR 15-29 ml/min (Acute) Hydronephrosis (Acute) Cancer of kidney (Acute) Past Medical History Medical History Agitation Cancer of kidney Chronic post-traumatic stress disorder (PTSD) Chronic UTI CKD (chronic kidney disease) stage 4, GFR 15-29 ml/min Colon cancer Colostomy in place Delirium Diabetes type 2, controlled Hematuria High cholesterol HTN (hypertension) Hydronephrosis Hydronephrosis Hydroureter Kidney stone PTSD (post-traumatic stress disorder) Pyuria Stroke Family History Family History Father Stroke Family history of problems with anesthesia: No Surgical History History of Problems with Anesthesia: No Social History Social History Household Members: Other Housing: Longterm Alcohol intake: never Patient Tobacco Use Status: Never used Tobacco Use of substances other than those prescribed or required for medical reasons: No Are you DNR?: No Advance Directives: Yes Advance Directives on File: Yes Advance Directives Date on File: 10/15/21 service: Yes Current occupational status: retired Meds Allergies Allergy/AdvReac Type Severity Reaction Status Date / Time erythromycin base Allergy Severe TREMORS Verified 08/26/20 12:00 [ERYTHROMYCIN BASE] morphine [MORPHINE] Allergy Severe HALLUCINATI Verified 08/26/20 12:00 ONS oxycodone [From Percocet] AdvReac Intermediate agitation Verified 10/15/21 10:59 prochlorperazine AdvReac dystonia Verified 10/15/21 10:59 [From Compazine] Active Medications: Current Medications Acetaminophen (Acetaminophen 325 Mg Tablet) 650 mg PO Q6H PRN PRN Reason: Pain, Mild (Pain Scale 1-3) Amlodipine Besylate (Amlodipine Besylate 5 Mg Tablet) 5 mg PO BID COUNTS INCLUDE 234 BEDS AT THE [facility]; Protocol Last Admin: 12/17/21 09:39 Dose: Not Given Atorvastatin Calcium (Atorvastatin Calcium 10 Mg Tablet) 10 mg PO BEDTIME COUNTS INCLUDE 234 BEDS AT THE [facility] Last Admin: 12/16/21 20:45 Dose: 10 mg Calcium Carbonate (Calcium Carbonate 500 Mg Tablet) 1,000 mg PO BID COUNTS INCLUDE 234 BEDS AT THE [facility] Last Admin: 12/17/21 09:40 Dose: Not Given Carvedilol (Carvedilol 12.5 Mg Tablet) 12.5 mg PO BID COUNTS INCLUDE 234 BEDS AT THE [facility]; Protocol Last Admin: 12/17/21 09:40 Dose: Not Given Cyanocobalamin (Cyanocobalamin (Vitamin B-12) 1,000 Mcg Tablet) 1,000 mcg PO DAILY COUNTS INCLUDE 234 BEDS AT THE [facility] Last Admin: 12/17/21 09:40 Dose: Not Given Dextrose (Dextrose 50 % 25 Gm/50 Ml Syringe) 25 gm IVPUSH Q15M PRN; Protocol PRN Reason: per Hypoglycemia Standing Ord. Docusate Sodium (Docusate Sodium 100 Mg Capsule) 100 mg PO DAILY COUNTS INCLUDE 234 BEDS AT THE [facility] Last Admin: 12/17/21 09:40 Dose: Not Given Famotidine (Famotidine 20 Mg Tablet) 20 mg PO BID COUNTS INCLUDE 234 BEDS AT THE [facility] Last Admin: 12/17/21 09:40 Dose: Not Given Glucose (Glucose Gel 15 Gm Gel..Gram.) 15 gm PO Q15M PRN; Protocol PRN Reason: per Hypoglycemia Standing Ord. Hydralazine HCl (Hydralazine Hcl 25 Mg Tablet) 25 mg PO TID COUNTS INCLUDE 234 BEDS AT THE [facility]; Protocol Last Admin: 12/17/21 09:40 Dose: Not Given Sodium Bicarbonate 150 meq/ (Dextrose) 1,000 mls @ 150 mls/hr IV .Q6H40M COUNTS INCLUDE 234 BEDS AT THE [facility] Last Admin: 12/17/21 11:57 Dose: 150 mls/hr Insulin Human Lispro (Insulin Lispro 100 Unit/Ml 3 Ml Vial) 0 unit SUBCUT QIDACHS COUNTS INCLUDE 234 BEDS AT THE [facility]; Protocol Last Admin: 12/17/21 09:02 Dose: Not Given Magnesium Oxide (Magnesium Oxide 400 Mg Tablet) 400 mg PO BID COUNTS INCLUDE 234 BEDS AT THE [facility] Last Admin: 12/17/21 09:40 Dose: Not Given Multivitamins/Vitamin C (Multivitamin Tablet) 1 tab PO DAILY COUNTS INCLUDE 234 BEDS AT THE [facility] Last Admin: 12/17/21 09:41 Dose: Not Given Nystatin (Nystatin Powder 15 Gm Bottle) 1 appl TOPICAL BID COUNTS INCLUDE 234 BEDS AT THE [facility]; Protocol Last Admin: 12/17/21 09:40 Dose: Not Given Ondansetron HCl (Ondansetron Hcl 4 Mg/2 Ml Vial) 4 mg IVPUSH Q8H PRN PRN Reason: Nausea and Vomiting Pharmacy Consult (Consult Rx Perform Med Rec) 1 each MISCELLANE ONCE PRN PRN Reason: Consult order Sodium Chloride (0.9 % Sodium Chloride Flush 3 Ml Syringe) 3 ml IVFLUSH QSHIFT COUNTS INCLUDE 234 BEDS AT THE [facility] Last Admin: 12/17/21 07:36 Dose: Not Given Vitamin D (Cholecalciferol (Vitamin D3) 25 Mcg Tablet) 50 mcg PO DAILY COUNTS INCLUDE 234 BEDS AT THE [facility] Last Admin: 12/17/21 09:40 Dose: Not Given Zinc Sulfate (Zinc Sulfate 220 Mg Capsule) 50 mg PO DAILY COUNTS INCLUDE 234 BEDS AT THE [facility] Last Admin: 12/17/21 09:41 Dose: Not Given Home Medications Medication Instructions Recorded Confirmed Last Taken Type amlodipine 5 mg tablet 1 tab PO BID 08/26/20 12/16/21 10/14/21 History ascorbic acid (vitamin C) 500 mg 1,000 mg PO BID 08/26/20 12/16/21 10/14/21 History tablet (Vitamin C) aspirin 25 mg-dipyridamole 200 mg 1 cap PO BID 08/26/20 12/16/21 10/14/21 History capsule,ext.release 12 hr multiphase atorvastatin 10 mg tablet 10 mg PO BEDTIME 08/26/20 12/16/21 10/14/21 History cholecalciferol (vitamin D3) 50 50 mcg PO DAILY 08/26/20 12/16/21 10/14/21 History mcg (2,000 unit) capsule (Vitamin D3) coenzyme Q10 100 mg capsule 200 mg PO DAILY 08/26/20 12/16/21 10/14/21 History (CoQ-10) docusate sodium 100 mg capsule 100 mg PO DAILY 08/26/20 12/16/21 10/14/21 History (Colace) duloxetine 30 mg capsule,delayed 1 cap PO BEDTIME 08/26/20 12/16/21 10/14/21 History release famotidine 20 mg tablet 20 mg PO BID 08/26/20 12/16/21 10/14/21 History mecobalamin (vitamin B12) 1,000 1,000 mcg PO DAILY 08/26/20 12/16/21 10/14/21 History mcg chewable tablet (B12 Active) melatonin 5 mg capsule 10 mg PO BEDTIME PRN Insomnia 08/26/20 12/16/21 10/14/21 History multivitamin 1 tab PO DAILY 08/26/20 12/16/21 10/14/21 History potassium chloride 20 mEq 1 tab PO DAILY 10/04/21 12/16/21 10/14/21 History tablet,extended release(part/cryst) sodium bicarbonate 650 mg tablet 1 tab PO BID 10/04/21 12/16/21 10/14/21 History zinc sulfate 50 mg zinc (220 mg) 1 cap PO DAILY 10/04/21 12/16/21 10/14/21 History capsule Saccharomyces boulardii 250 mg 250 mg PO DAILY 11/20/21 12/16/21 Unknown History capsule acetaminophen 325 mg tablet 650 mg PO Q6H PRN Pain 11/20/21 12/16/21 Unknown History calcium carbonate 500 mg calcium 1,000 mg PO BID 11/20/21 12/16/21 Unknown History (1,250 mg) tablet sitagliptin 25 mg tablet 25 mg PO DAILY 11/20/21 12/16/21 Unknown History magnesium oxide 420 mg tablet 1 tab PO BID 12/16/21 12/16/21 Unknown History Exam Exam Date and Time: December 17, 2021 1352 Height,Weight and Vital Signs: Height 5 ft 10 in Weight 63 kg Last Vital Signs Temp 97.0 F 12/17/21 13:01 Pulse 70 12/17/21 13:01 Resp 12 12/17/21 13:01 BP 140/64 H 12/17/21 13:01 Pulse Ox 99 12/17/21 13:01 O2 Del Method 12/17/21 13:01 Pertinent Lab Results Pertinent Lab Results: Laboratory Tests 12/16/21 12/16/21 12/16/21 11:00 11:00 11:00 WBC 9.1 RBC 3.31 L D Hgb 9.0 L Hct 27.1 L D MCV 81.9 MCH 27.2 MCHC 33.2 RDW 18.4 H Plt Count 200 MPV 10.9 Immature Gran % (Auto) 0.4 Neut % (Auto) 66.0 Lymph % (Auto) 19.8 L [place] % (Auto) 12.0 H Eos % (Auto) 1.4 Baso % (Auto) 0.4 Lymph # (Auto) 1.8 [place] # (Auto) 1.1 Eos # (Auto) 0.1 Baso # (Auto) 0.0 Abs Immat Gran (auto) 0.04 H Absolute Neuts (auto) 6.0 Absolute Nucleated RBC 0.000 Nucleated RBC % (auto) 0.0 PT INR APTT VBG pH VBG pCO2 VBG pO2 VBG HCO3 VBG O2 Saturation VBG Base Excess Sodium 140 Potassium 3.7 Chloride 114 H Carbon Dioxide 6 L* D Anion Gap 24 H BUN 128 H D Creatinine 9.69 H* Estim Creat Clear Calc 5.1 Estimated GFR 5 POC Glucose Random Glucose 146 H Calcium 8.0 L D Magnesium 1.1 L* Total Bilirubin 0.7 AST 14 ALT 14 Alkaline Phosphatase 92 Troponin I High Sens 37.4 H D Total Protein 6.6 Albumin 3.5 Urine Color Urine Appearance Urine pH Ur Specific [place] Urine Protein Urine Glucose (UA) Urine Ketones Urine Blood Urine Nitrite Ur Leukocyte Esterase Urine RBC Urine WBC Ur Squamous Epith Cells Urine Bacteria Hyaline Casts Urine Yeast Influenza Type A (PCR) Influenza Type B (PCR) RSV RNA Qual (PCR) SARS-CoV-2 RNA (RT-PCR) 12/16/21 12/16/21 12/16/21 11:00 13:23 14:49 WBC RBC Hgb Hct MCV MCH MCHC RDW Plt Count MPV Immature Gran % (Auto) Neut % (Auto) Lymph % (Auto) [place] % (Auto) Eos % (Auto) Baso % (Auto) Lymph # (Auto) [place] # (Auto) Eos # (Auto) Baso # (Auto) Abs Immat Gran (auto) Absolute Neuts (auto) Absolute Nucleated RBC Nucleated RBC % (auto) PT INR APTT VBG pH 7.22 L VBG pCO2 18 VBG pO2 115 VBG HCO3 7 L VBG O2 Saturation 99.0 VBG Base Excess -17.8 Sodium Potassium Chloride Carbon Dioxide Anion Gap BUN Creatinine Estim Creat Clear Calc Estimated GFR POC Glucose Random Glucose Calcium Magnesium Total Bilirubin AST ALT Alkaline Phosphatase Troponin I High Sens 44.6 H Total Protein Albumin Urine Color Urine Appearance Urine pH Ur Specific [place] Urine Protein Urine Glucose (UA) Urine Ketones Urine Blood Urine Nitrite Ur Leukocyte Esterase Urine RBC Urine WBC Ur Squamous Epith Cells Urine Bacteria Hyaline Casts Urine Yeast Influenza Type A (PCR) NEGATIVE Influenza Type B (PCR) NEGATIVE RSV RNA Qual (PCR) NEGATIVE SARS-CoV-2 RNA (RT-PCR) NEGATIVE 12/16/21 12/16/21 12/16/21 17:37 17:41 18:15 WBC RBC Hgb Hct MCV MCH MCHC RDW Plt Count MPV Immature Gran % (Auto) Neut % (Auto) Lymph % (Auto) [place] % (Auto) Eos % (Auto) Baso % (Auto) Lymph # (Auto) [place] # (Auto) Eos # (Auto) Baso # (Auto) Abs Immat Gran (auto) Absolute Neuts (auto) Absolute Nucleated RBC Nucleated RBC % (auto) PT INR APTT VBG pH 7.25 L VBG pCO2 18 VBG pO2 59 VBG HCO3 8 L VBG O2 Saturation 85.0 VBG Base Excess -16.4 Sodium 141 Potassium 3.6 Chloride 114 H Carbon Dioxide 7 L* Anion Gap 24 H BUN 124 H Creatinine 9.62 H* Estim Creat Clear Calc 5.1 Estimated GFR 5 POC Glucose 163 H Random Glucose 160 H Calcium 8.2 L Magnesium 1.7 Total Bilirubin AST ALT Alkaline Phosphatase Troponin I High Sens Total Protein Albumin Urine Color Urine Appearance Urine pH Ur Specific [place] Urine Protein Urine Glucose (UA) Urine Ketones Urine Blood Urine Nitrite Ur Leukocyte Esterase Urine RBC Urine WBC Ur Squamous Epith Cells Urine Bacteria Hyaline Casts Urine Yeast Influenza Type A (PCR) Influenza Type B (PCR) RSV RNA Qual (PCR) SARS-CoV-2 RNA (RT-PCR) 12/16/21 12/16/21 12/17/21 20:46 21:33 06:03 WBC 7.8 RBC 3.07 L Hgb 8.5 L Hct 24.2 L MCV 78.8 L MCH 27.7 MCHC 35.1 RDW 18.2 H Plt Count 204 MPV 11.9 Immature Gran % (Auto) Neut % (Auto) Lymph % (Auto) [place] % (Auto) Eos % (Auto) Baso % (Auto) Lymph # (Auto) [place] # (Auto) Eos # (Auto) Baso # (Auto) Abs Immat Gran (auto) Absolute Neuts (auto) Absolute Nucleated RBC 0.000 Nucleated RBC % (auto) 0.0 PT INR APTT VBG pH VBG pCO2 VBG pO2 VBG HCO3 VBG O2 Saturation VBG Base Excess Sodium Potassium Chloride Carbon Dioxide Anion Gap BUN Creatinine Estim Creat Clear Calc Estimated GFR POC Glucose 161 H Random Glucose Calcium Magnesium Total Bilirubin AST ALT Alkaline Phosphatase Troponin I High Sens Total Protein Albumin Urine Color Yellow Urine Appearance Turbid Urine pH 5.5 Ur Specific [place] 1.015 Urine Protein 300 (3+) H Urine Glucose (UA) Negative Urine Ketones Negative Urine Blood Large (3+) H Urine Nitrite Negative Ur Leukocyte Esterase Large (3+) H Urine RBC >20 H Urine WBC >50 H Ur Squamous Epith Cells 0-2 Urine Bacteria 2+ Hyaline Casts 0-2 Urine Yeast Present Influenza Type A (PCR) Influenza Type B (PCR) RSV RNA Qual (PCR) SARS-CoV-2 RNA (RT-PCR) 12/17/21 12/17/21 12/17/21 06:03 07:08 08:38 WBC RBC Hgb Hct MCV MCH MCHC RDW Plt Count MPV Immature Gran % (Auto) Neut % (Auto) Lymph % (Auto) [place] % (Auto) Eos % (Auto) Baso % (Auto) Lymph # (Auto) [place] # (Auto) Eos # (Auto) Baso # (Auto) Abs Immat Gran (auto) Absolute Neuts (auto) Absolute Nucleated RBC Nucleated RBC % (auto) PT 13.8 H INR 1.2 H APTT 28.1 VBG pH VBG pCO2 VBG pO2 VBG HCO3 VBG O2 Saturation VBG Base Excess Sodium 141 Potassium 3.0 L Chloride 106 Carbon Dioxide 15 L Anion Gap 23 H BUN 117 H Creatinine 8.95 H* Estim Creat Clear Calc 5.5 Estimated GFR 6 POC Glucose 215 H Random Glucose 228 H D Calcium 8.0 L Magnesium 1.5 L Total Bilirubin AST ALT Alkaline Phosphatase Troponin I High Sens Total Protein Albumin Urine Color Urine Appearance Urine pH Ur Specific [place] Urine Protein Urine Glucose (UA) Urine Ketones Urine Blood Urine Nitrite Ur Leukocyte Esterase Urine RBC Urine WBC Ur Squamous Epith Cells Urine Bacteria Hyaline Casts Urine Yeast Influenza Type A (PCR) Influenza Type B (PCR) RSV RNA Qual (PCR) SARS-CoV-2 RNA (RT-PCR) 12/17/21 11:33 WBC RBC Hgb Hct MCV MCH MCHC RDW Plt Count MPV Immature Gran % (Auto) Neut % (Auto) Lymph % (Auto) [place] % (Auto) Eos % (Auto) Baso % (Auto) Lymph # (Auto) [place] # (Auto) Eos # (Auto) Baso # (Auto) Abs Immat Gran (auto) Absolute Neuts (auto) Absolute Nucleated RBC Nucleated RBC % (auto) PT INR APTT VBG pH VBG pCO2 VBG pO2 VBG HCO3 VBG O2 Saturation VBG Base Excess Sodium Potassium Chloride Carbon Dioxide Anion Gap BUN Creatinine Estim Creat Clear Calc Estimated GFR POC Glucose 262 H Random Glucose Calcium Magnesium Total Bilirubin AST ALT Alkaline Phosphatase Troponin I High Sens Total Protein Albumin Urine Color Urine Appearance Urine pH Ur Specific [place] Urine Protein Urine Glucose (UA) Urine Ketones Urine Blood Urine Nitrite Ur Leukocyte Esterase Urine RBC Urine WBC Ur Squamous Epith Cells Urine Bacteria Hyaline Casts Urine Yeast Influenza Type A (PCR) Influenza Type B (PCR) RSV RNA Qual (PCR) SARS-CoV-2 RNA (RT-PCR) Airway Mallampati Class: II (Multiple implants) TM Dist: >3cm Neck ROM: Full Heart: rrr Lungs: not able to take deep breaths on commands Assessment and Plan Assessment Anesthesia Assessment: Anesthesia Plan Discussed and Chart Reviewed Final Anesthetic Review Family History of Problems with Anesthesia: No History of Problems with Anesthesia: No NPO: Yes ASA Class: IV and Emergency Final Preanesthetic Review: No Changes in Pt Med Stat, Meds/Allgs Chart Reviewed and Consent Obtained/Reviewed Patient Risk: Intermediate Procedure Risk: Intermediate Anesthetic Plan Anesthetic Plan: MAC: Disposition: Standard PACU
[2021-12-17] MEDS: fentaNYL citrate/PF 100 MCG/2 ML VIAL 12.5 MCG IVPUSH (14:05)
--- NOTE | 2021-12-17 14:24 | PC.NURSE ---
by bedside patient no longer moaning or groaning
--- NOTE | 2021-12-17 14:48 | PC.NURSE ---
repositioned two assist. bonnie care provided. incont of urine. alert and awake. opening eyes. warm blankets applied.
--- NOTE | 2021-12-17 15:11 | PC.NURSE ---
moved patient to pacu with and gave verbal report to kiarra lawson
--- NOTE | 2021-12-17 15:24 | MHC.SHP ---
Pre-Procedural Eval Section A Date of Service: 12/17/21 The patient is an INPATIENT: Yes Changes since office visit: No Cold of Flu in the past 2 weeks, No New Medical Problems, No Changes in Medication and No Patient answered all questions The History & Physical has been completed within 30 days and I have reviewed it.: Yes Section B Chief Complaint: ESTUARDO/ metabolic acidosis Details of Present Illness: indwelling stent on left. Plan for stent exchange, right retrograde, right stent placement Relevant Family History (Specify if Yes): No Relevant Social History: None Present Medications: see Short Stay Collaborative assessment Medical History: Significant History History of Previous Operations: Relevant previous surgery/procedure and date(s) Allergies: Allergies Allergy/AdvReac Type Severity Reaction Status Date / Time erythromycin base Allergy Severe TREMORS Verified 08/26/20 12:00 [ERYTHROMYCIN BASE] morphine [MORPHINE] Allergy Severe HALLUCINATI Verified 08/26/20 12:00 ONS oxycodone [From Percocet] AdvReac Intermediate agitation Verified 10/15/21 10:59 prochlorperazine AdvReac dystonia Verified 10/15/21 10:59 [From Compazine] Review of Systems Sugical H&P ROS: Negative: Constitution, Cardiovascular, Respiratory, Neurological, Psychiatric, Hem-Onc, Allergic/Immunologic, Gastrointestinal, Genitourinary, Musculoskeletal, Integumentary, Endocrine and Eyes/Ears/Nose/Throat Exam Surgical H&P Exam: Normal: HEENT, Normal: Heart, Normal: Lungs, Normal: Extremities, Normal: Abdomen, Normal: Skin and Normal: Neurological Plan Diagnosis/Plan: Unchanged ( plan for cystoscopy, left stent exchange, right retrograde, right stent placement) I have reviewed the history and physical and performed a pertinent physical examination on my patient. No changes have occurred unless specified.
--- NOTE | 2021-12-17 15:25 | P.CNUR_ITS ---
History of Present Illness Consult details Consult date: 12/17/21 Narrative: consulting complaint elevated creatinine 81-year-old male Baseline dementia and in care Presentation to emergency room with increased creatinine Imaging shows bilateral hydroureteronephrosis with J hooking Stent present on left side with persistent left hydronephrosis presumed chronic Change in creatinine Recommend left stent change Right retrograde with right stent placement Has been discussed with Review of Systems Constitutional: Constitutional: Reports as per HPI and Reports no additional constitutional complaints Cardiovascular: Cardiovascular: Reports as per HPI and Reports no additional cardiovascular complaints Respiratory: Respiratory: Reports as per HPI and Reports no additional respiratory complaints Gastrointestinal: Gastrointestinal: Reports as per HPI and Reports no additional gastrointestinal complaints Genitourinary: Genitourinary: Reports as per HPI Musculoskeletal: Musculoskeletal: Reports no additional musculoskeletal complaints and Reports as per HPI Neurologic: Reports system reviewed and no additional complaints, except as documented and Reports as per HPI PMFSH Past Medical History Medical History Agitation Cancer of kidney Chronic post-traumatic stress disorder (PTSD) Chronic UTI CKD (chronic kidney disease) stage 4, GFR 15-29 ml/min Colon cancer Colostomy in place Delirium Diabetes type 2, controlled Hematuria High cholesterol HTN (hypertension) Hydronephrosis Hydronephrosis Hydroureter Kidney stone PTSD (post-traumatic stress disorder) Pyuria Stroke Family History Family History Father Stroke Social History Social History Household Members: Other Housing: Skilled Nursing Alcohol intake: never Patient Tobacco Use Status: Never used Tobacco Use of substances other than those prescribed or required for medical reasons: No Are you DNR?: No Advance Directives: Yes Advance Directives on File: Yes Advance Directives Date on File: 10/15/21 service: Yes Current occupational status: retired Meds Allergies Allergy/AdvReac Type Severity Reaction Status Date / Time erythromycin base Allergy Severe TREMORS Verified 08/26/20 12:00 [ERYTHROMYCIN BASE] morphine [MORPHINE] Allergy Severe HALLUCINATI Verified 08/26/20 12:00 ONS oxycodone [From Percocet] AdvReac Intermediate agitation Verified 10/15/21 10:59 prochlorperazine AdvReac dystonia Verified 10/15/21 10:59 [From Compazine] Active Medications: Current Medications Acetaminophen (Acetaminophen 325 Mg Tablet) 650 mg PO Q6H PRN PRN Reason: Pain, Mild (Pain Scale 1-3) Amlodipine Besylate (Amlodipine Besylate 5 Mg Tablet) 5 mg PO BID [facility]; Protocol Last Admin: 12/17/21 09:39 Dose: Not Given Atorvastatin Calcium (Atorvastatin Calcium 10 Mg Tablet) 10 mg PO BEDTIME [facility] Last Admin: 12/16/21 20:45 Dose: 10 mg Calcium Carbonate (Calcium Carbonate 500 Mg Tablet) 1,000 mg PO BID [facility] Last Admin: 12/17/21 09:40 Dose: Not Given Carvedilol (Carvedilol 12.5 Mg Tablet) 12.5 mg PO BID [facility]; Protocol Last Admin: 12/17/21 09:40 Dose: Not Given Cyanocobalamin (Cyanocobalamin (Vitamin B-12) 1,000 Mcg Tablet) 1,000 mcg PO DAILY [facility] Last Admin: 12/17/21 09:40 Dose: Not Given Dextrose (Dextrose 50 % 25 Gm/50 Ml Syringe) 25 gm IVPUSH Q15M PRN; Protocol PRN Reason: per Hypoglycemia Standing Ord. Docusate Sodium (Docusate Sodium 100 Mg Capsule) 100 mg PO DAILY [facility] Last Admin: 12/17/21 09:40 Dose: Not Given Famotidine (Famotidine 20 Mg Tablet) 20 mg PO BID [facility] Last Admin: 12/17/21 09:40 Dose: Not Given Glucose (Glucose Gel 15 Gm Gel..Gram.) 15 gm PO Q15M PRN; Protocol PRN Reason: per Hypoglycemia Standing Ord. Hydralazine HCl (Hydralazine Hcl 25 Mg Tablet) 25 mg PO TID [facility]; Protocol Last Admin: 12/17/21 09:40 Dose: Not Given Sodium Bicarbonate 150 meq/ (Dextrose) 1,000 mls @ 150 mls/hr IV .Q6H40M [facility] Last Admin: 12/17/21 11:57 Dose: 150 mls/hr Insulin Human Lispro (Insulin Lispro 100 Unit/Ml 3 Ml Vial) 0 unit SUBCUT QIDACHS [facility]; Protocol Last Admin: 12/17/21 09:02 Dose: Not Given Magnesium Oxide (Magnesium Oxide 400 Mg Tablet) 400 mg PO BID [facility] Last Admin: 12/17/21 09:40 Dose: Not Given Multivitamins/Vitamin C (Multivitamin Tablet) 1 tab PO DAILY [facility] Last Admin: 12/17/21 09:41 Dose: Not Given Nystatin (Nystatin Powder 15 Gm Bottle) 1 appl TOPICAL BID [facility]; Protocol Last Admin: 12/17/21 09:40 Dose: Not Given Ondansetron HCl (Ondansetron Hcl 4 Mg/2 Ml Vial) 4 mg IVPUSH Q8H PRN PRN Reason: Nausea and Vomiting Pharmacy Consult (Consult Rx Perform Med Rec) 1 each MISCELLANE ONCE PRN PRN Reason: Consult order Sodium Chloride (0.9 % Sodium Chloride Flush 3 Ml Syringe) 3 ml IVFLUSH QSHIFT [facility] Last Admin: 12/17/21 07:36 Dose: Not Given Vitamin D (Cholecalciferol (Vitamin D3) 25 Mcg Tablet) 50 mcg PO DAILY [facility] Last Admin: 12/17/21 09:40 Dose: Not Given Zinc Sulfate (Zinc Sulfate 220 Mg Capsule) 50 mg PO DAILY [facility] Last Admin: 12/17/21 09:41 Dose: Not Given Home Medications Medication Instructions Recorded Confirmed Last Taken Type amlodipine 5 mg tablet 1 tab PO BID 08/26/20 12/16/21 10/14/21 History ascorbic acid (vitamin C) 500 mg 1,000 mg PO BID 08/26/20 12/16/21 10/14/21 History tablet (Vitamin C) aspirin 25 mg-dipyridamole 200 mg 1 cap PO BID 08/26/20 12/16/21 10/14/21 History capsule,ext.release 12 hr multiphase atorvastatin 10 mg tablet 10 mg PO BEDTIME 08/26/20 12/16/21 10/14/21 History cholecalciferol (vitamin D3) 50 50 mcg PO DAILY 08/26/20 12/16/21 10/14/21 History mcg (2,000 unit) capsule (Vitamin D3) coenzyme Q10 100 mg capsule 200 mg PO DAILY 08/26/20 12/16/21 10/14/21 History (CoQ-10) docusate sodium 100 mg capsule 100 mg PO DAILY 08/26/20 12/16/21 10/14/21 History (Colace) duloxetine 30 mg capsule,delayed 1 cap PO BEDTIME 08/26/20 12/16/21 10/14/21 History release famotidine 20 mg tablet 20 mg PO BID 08/26/20 12/16/21 10/14/21 History mecobalamin (vitamin B12) 1,000 1,000 mcg PO DAILY 08/26/20 12/16/21 10/14/21 History mcg chewable tablet (B12 Active) melatonin 5 mg capsule 10 mg PO BEDTIME PRN Insomnia 08/26/20 12/16/21 10/14/21 History multivitamin 1 tab PO DAILY 08/26/20 12/16/21 10/14/21 History potassium chloride 20 mEq 1 tab PO DAILY 10/04/21 12/16/21 10/14/21 History tablet,extended release(part/cryst) sodium bicarbonate 650 mg tablet 1 tab PO BID 10/04/21 12/16/21 10/14/21 History zinc sulfate 50 mg zinc (220 mg) 1 cap PO DAILY 10/04/21 12/16/21 10/14/21 History capsule Saccharomyces boulardii 250 mg 250 mg PO DAILY 11/20/21 12/16/21 Unknown History capsule acetaminophen 325 mg tablet 650 mg PO Q6H PRN Pain 11/20/21 12/16/21 Unknown History calcium carbonate 500 mg calcium 1,000 mg PO BID 11/20/21 12/16/21 Unknown History (1,250 mg) tablet sitagliptin 25 mg tablet 25 mg PO DAILY 11/20/21 12/16/21 Unknown History magnesium oxide 420 mg tablet 1 tab PO BID 12/16/21 12/16/21 Unknown History Physical Exam Vital Signs: Vital Signs: Last Vital Signs Temp 97.0 F 12/17/21 13:01 Pulse 66 12/17/21 14:22 Resp 14 12/17/21 14:22 BP 133/61 12/17/21 14:22 Pulse Ox 98 12/17/21 14:22 O2 Del Method 12/17/21 14:22 O2 Flow Rate 2 12/17/21 14:22 BMI result Body Mass Index 19.9 Const: General: cooperative, healthy appearing, comfortable and no acute distress Orientation/consciousness: patient oriented x3 HEENT: Face and sinus: Yes normal facial exam Mouth: moist mucous membranes Neck: Neck: Yes normal visual inspection, Yes full ROM and Yes trachea midline Chest: Chest palpation & inspection: normal inspection of the chest Resp: Effort & Inspection: normal respiratory effort, able to speak in complete sentences and no respiratory distress GI: Inspection: Yes normal to inspection Back/Spine/Pelvis: Cervical Spine: normal cervical lordosis Thoracic/Lumbar Spine: thoracic and lumbar spine normal to inspection Skin: General skin exam: no rashes or lesions noted Neuro: General: patient oriented x3, tone normal and moves all extremities Extrem: General: Yes normal to inspection and Yes capillary refill normal Results Labs Result diagrams: 12/17/21 06:03 12/17/21 06:03 Labs: Abnormal lab results 12/16/21 12/16/21 12/16/21 Range/Units 17:37 17:41 18:15 RBC (4.60-5.80) X10*6/uL Hgb (14.0-18.0) g/dl Hct (42.0-52.0) % MCV (80.0-98.0) fL RDW (11.0-16.0) % PT (10.0-13.1) SEC INR (0.9-1.1) VBG pH 7.25 L (7.32-7.43) VBG HCO3 8 L (22-26) mmol/L Potassium (3.3-5.1) mmol/L Chloride 114 H (96-108) mmol/L Carbon Dioxide 7 L* (22-29) mmol/L Anion Gap 24 H (12-20) BUN 124 H (9-16) mg/dL Creatinine 9.62 H* (0.5-1.4) mg/dL POC Glucose 163 H (60-115) mg/dL Random Glucose 160 H (60-115) mg/dL Calcium 8.2 L (8.4-10.2) mg/dL Magnesium (1.6-2.6) mg/dL Urine Protein (Neg-Trace) mg/dL Urine Blood (Negative) Ur Leukocyte Esterase (Negative) Urine RBC (0-2) /HPF Urine WBC (0-5) /HPF 12/16/21 12/16/21 12/17/21 Range/Units 20:46 21:33 06:03 RBC 3.07 L (4.60-5.80) X10*6/uL Hgb 8.5 L (14.0-18.0) g/dl Hct 24.2 L (42.0-52.0) % MCV 78.8 L (80.0-98.0) fL RDW 18.2 H (11.0-16.0) % PT (10.0-13.1) SEC INR (0.9-1.1) VBG pH (7.32-7.43) VBG HCO3 (22-26) mmol/L Potassium (3.3-5.1) mmol/L Chloride (96-108) mmol/L Carbon Dioxide (22-29) mmol/L Anion Gap (12-20) BUN (9-16) mg/dL Creatinine (0.5-1.4) mg/dL POC Glucose 161 H (60-115) mg/dL Random Glucose (60-115) mg/dL Calcium (8.4-10.2) mg/dL Magnesium (1.6-2.6) mg/dL Urine Protein 300 (3+) H (Neg-Trace) mg/dL Urine Blood Large (3+) H (Negative) Ur Leukocyte Esterase Large (3+) H (Negative) Urine RBC >20 H (0-2) /HPF Urine WBC >50 H (0-5) /HPF 12/17/21 12/17/21 12/17/21 Range/Units 06:03 07:08 08:38 RBC (4.60-5.80) X10*6/uL Hgb (14.0-18.0) g/dl Hct (42.0-52.0) % MCV (80.0-98.0) fL RDW (11.0-16.0) % PT 13.8 H (10.0-13.1) SEC INR 1.2 H (0.9-1.1) VBG pH (7.32-7.43) VBG HCO3 (22-26) mmol/L Potassium 3.0 L (3.3-5.1) mmol/L Chloride (96-108) mmol/L Carbon Dioxide 15 L (22-29) mmol/L Anion Gap 23 H (12-20) BUN 117 H (9-16) mg/dL Creatinine 8.95 H* (0.5-1.4) mg/dL POC Glucose 215 H (60-115) mg/dL Random Glucose 228 H D (60-115) mg/dL Calcium 8.0 L (8.4-10.2) mg/dL Magnesium 1.5 L (1.6-2.6) mg/dL Urine Protein (Neg-Trace) mg/dL Urine Blood (Negative) Ur Leukocyte Esterase (Negative) Urine RBC (0-2) /HPF Urine WBC (0-5) /HPF 12/17/21 Range/Units 11:33 RBC (4.60-5.80) X10*6/uL Hgb (14.0-18.0) g/dl Hct (42.0-52.0) % MCV (80.0-98.0) fL RDW (11.0-16.0) % PT (10.0-13.1) SEC INR (0.9-1.1) VBG pH (7.32-7.43) VBG HCO3 (22-26) mmol/L Potassium (3.3-5.1) mmol/L Chloride (96-108) mmol/L Carbon Dioxide (22-29) mmol/L Anion Gap (12-20) BUN (9-16) mg/dL Creatinine (0.5-1.4) mg/dL POC Glucose 262 H (60-115) mg/dL Random Glucose (60-115) mg/dL Calcium (8.4-10.2) mg/dL Magnesium (1.6-2.6) mg/dL Urine Protein (Neg-Trace) mg/dL Urine Blood (Negative) Ur Leukocyte Esterase (Negative) Urine RBC (0-2) /HPF Urine WBC (0-5) /HPF Short CBC 12/17/21 Range/Units 06:03 WBC 7.8 (4.8-10.8) X10*3/uL Hgb 8.5 L (14.0-18.0) g/dl Hct 24.2 L (42.0-52.0) % Plt Count 204 (160-400) X10*3/uL BMP 12/16/21 12/17/21 17:37 06:03 Sodium 141 141 Potassium 3.6 3.0 L Chloride 114 H 106 Carbon Dioxide 7 L* 15 L BUN 124 H 117 H Creatinine 9.62 H* 8.95 H* Calcium 8.2 L 8.0 L Urine 12/16/21 Range/Units 21:33 Urine Color Yellow Urine Appearance Turbid Urine pH 5.5 (5.0-9.0) Ur Specific Cecil 1.015 (1.005-1.025) Urine Protein 300 (3+) H (Neg-Trace) mg/dL Urine Glucose (UA) Negative (Negative) mg/dL All other labs normal. Assessment and Plan (1) Hydronephrosis: Status: Acute (2) Acute kidney injury: Status: Acute Plan Risks, benefits and alternatives to therapy were discussed. These include but are not limited to infection, bleeding, damage to local organs and tissues, need for further interventions. Anesthetic risks regarding cardiac arrhythmia, blood clots, and potential mo rtality were discussed. The patient understands the typical recovery time and the outpatient nature of the procedure. After consideration of these risks the patient gives full informed consent and they wish to move ahead with the procedure. cystoscopy, left stent exchange, right retrograde with right stent placement Procedures Date of Service Date of Service: 12/17/21
--- NOTE | 2021-12-17 16:18 | P.OP_ITS ---
Operative Note Operative Note Date of Service: 12/17/21 Narrative: PreOperative Diagnosis: bilateral hydronephrosis with stent in place on left side, acute on chronic renal failure Post Operative Diagnosis: bilateral hydronephrosis, acute on chronic renal failure, pyelonephritis left side Procedure: cystoscopy, left stent removal, left retrograde,left renal pelvis aspiration, left stent placement, right retrograde, right stent placement Surgeon: Dr Clement Kang Anesthesia: sedation Indications for procedure: acute on chronic renal failure with creatinine 8.95, WBC 7.8, HbA1c 7.8 Procedure: After informed consent was verified the patient was brought to the operating room and placed in a supine position. Anesthesia was administered per protocol. The patient was placed in modified dorsal lithotomy position and prepped and draped in a sterile fashion. A safety pause time-out was performed. Laterality of procedure and antibiotics were confirmed, appropriate imaging was available A 22 Salvadorean cystoscope was introduced per urethra. the bladder contained abundant prone material. This was irrigated free into we could see the left stent in place. Once the left stent was visible a wire was placed alongside the stent. The stent was grasped and removed. An open-ended catheter was placed over the wire. Retrograde examination performed. There was chronic hydronephrosis. Hydronephrosis was aspirated with parent material. A sample is sent for microbiology. Approximately 160 cc of purulent material was aspirated from the left renal pelvis. A 7 Salvadorean by 26 cm double-J stent was placed with good coil seen in the renal pelvis and in the bladder. The Right ureter was cannulated with an open ended catheter and a retrograde examination was performed. hydronephrosis seen within the right collecting system. This was only mild and not as prominent as the left side. . A Sensor guidewire was placed under fluoroscopy and a good coil was seen within the renal pelvis. The open-ended catheter was advanced and the right renal pelvis was aspirated with normal fluid apparent. A Seven Salvadorean by 26 cm double J stent was advanced over the wire and up to the level of the renal pelvis under fluoroscopic and direct visualization. The stent was seen with appropriate coil within the renal pelvis and in the bladder after deployment. The patient tolerated the procedure well and was transferred in a stable condition to the recovery area. Pathology: aspiration from left renal pelvis Drains: bilateral stents is indicated above
[2021-12-17 20:11] LABS: Glucose, Whole Blood 223 mg/dL (60-115)
[2021-12-17] MEDS: Acetaminophen 325 MG TABLET 650 MG PO (21:57)
[2021-12-17] MEDS: amLODIPine Besylate 5 MG TABLET PO (21:58)
[2021-12-17] MEDS: hydrALAZINE HCl 25 MG TABLET PO (21:58)
[2021-12-17] MEDS: Atorvastatin Calcium 10 MG TABLET PO (21:58)
[2021-12-17] MEDS: Magnesium Oxide 400 MG TABLET PO (21:58)
[2021-12-17] MEDS: Famotidine 20 MG TABLET PO (21:58)
[2021-12-17] MEDS: carvediloL 12.5 MG TABLET PO (21:58)
[2021-12-17] MEDS: Tamsulosin HCL 0.4 MG CAPSULE PO (21:58)
[2021-12-17] MEDS: Insulin Lispro 100 UNIT/ML 3 ML VIAL SUBCUT (21:59)
[2021-12-18] MEDS: Sodium Bicarbonate 8.4% 150 MEQ in Dextrose 5 % 850 ML IV ×2 (04:40→14:02)
[2021-12-18 07:32] LABS: Hematocrit 24.8 % (42.0-52.0); Hemoglobin 8.6 g/dl (14.0-18.0); Mean Corpuscular HGB Conc 34.7 g/dl (31.0-36.0); Mean Corpuscular Hemoglobin 27.3 pg (27.0-33.0); Mean Corpuscular Volume 78.7 fL (80.0-98.0); Mean Platelet Volume 11.4 fL (9.4-12.4); Platelet Count 193 X10*3/uL (160-400); Red Blood Count 3.15 X10*6/uL (4.60-5.80); Red Cell Distribution Width 17.8 % (11.0-16.0); White Blood Count 9.4 X10*3/uL (4.8-10.8)
--- NOTE | 2021-12-18 07:58 | PC.NURSE ---
Addendum entered by Pat Gutierrez RN 12/18/21 19:21: New IV placed to L forearm, both IV in R side discontinued. Report given to overnight RN. Addendum entered by Pat Gutierrez RN 12/18/21 15:48: pt more cooperative now, allowed CHURCH WORKER to take vital signs, allowed POC to be taken and took all morning medications. updated. at bedside. Call blankenship within reach, 1:[address], bed alarm on, camera in room, hourly rounding and safety precautions taken. Addendum entered by Pat Gutierrez RN 12/18/21 10:16: pt refusing all morning medication, MD notified. Pt also increasing in agitation, pulling at his IV and bain cath, camera is in room, MD notified - no new orders at this time. Nursing dimension quarry supervisor updated on pt condition and 1:1 sitter planned to come in at 11 for pt. Bed alarm on, hourly rounding, call blankenship within reach. Original Note: Report received from overnight RN. pt very resistive to care, refusing vital signs and POC this morning for CHURCH WORKER and this RN. notified.
--- NOTE | 2021-12-18 10:19 | P.PNIM_ITS ---
Subjective Subjective Date of Service: 12/18/21 Interval History: Seen in f/u for acute on chronic lashae failure, hydroneprhosis, uremia Patient is very confused, refusing care including not allowing vitals or sugar Review of Systems Unable to obatin d/t confused Physical Exam Vital Signs: Vital Signs: Last Vital Signs Temp 98.2 F 12/17/21 23:22 Pulse 78 12/17/21 23:22 Resp 16 12/17/21 23:22 BP 145/65 H 12/17/21 23:22 Pulse Ox 97 12/17/21 23:22 O2 Del Method 12/17/21 23:22 O2 Flow Rate 6 12/17/21 16:45 BMI result Body Mass Index 19.9 Const: Other: Gen: ill appearing, alert doesn't make sent HEENT: sclera anicteric, moist mucus membranes Neck: supple Lungs: clear to auscultation bilaterally Heart: regular rate and rhythm, no murmurs Abd: soft, non-tender, non-distended, colostomy in place draining liquid brown stool Ext: no edema Skin: warm/well-perfused Neuro: somnolent, awakens only briefly Psych: impaired insight Objective Data Active Medications Acetaminophen (Acetaminophen 325 Mg Tablet) 650 mg PO Q6H PRN PRN Reason: Pain, Mild (Pain Scale 1-3) Last Admin: 12/17/21 21:57 Dose: 650 mg Documented By: ANASTACIA Acetaminophen (Acetaminophen 325 Mg Tablet) 650 mg PO ONCE PRN PRN Reason: Pain, Mild (Pain Scale 1-3) Amlodipine Besylate (Amlodipine Besylate 5 Mg Tablet) 5 mg PO BID [facility]; Protocol Last Admin: 12/18/21 10:03 Dose: Not Given Documented By: ANGELIKA Non-Admin Reason: Patient Refused Atorvastatin Calcium (Atorvastatin Calcium 10 Mg Tablet) 10 mg PO BEDTIME [facility] Last Admin: 12/17/21 21:58 Dose: 10 mg Documented By: ANASTACIA Calcium Carbonate (Calcium Carbonate 500 Mg Tablet) 1,000 mg PO BID [facility] Last Admin: 12/18/21 10:03 Dose: Not Given Documented By: ANGELIKA Non-Admin Reason: Patient Refused Carvedilol (Carvedilol 12.5 Mg Tablet) 12.5 mg PO BID [facility]; Protocol Last Admin: 12/18/21 10:03 Dose: Not Given Documented By: ANGELIKA Non-Admin Reason: Patient Refused Cyanocobalamin (Cyanocobalamin (Vitamin B-12) 1,000 Mcg Tablet) 1,000 mcg PO DAILY [facility] Last Admin: 12/18/21 10:03 Dose: Not Given Documented By: ANGELIKA Non-Admin Reason: Patient Refused Dextrose (Dextrose 50 % 25 Gm/50 Ml Syringe) 25 gm IVPUSH Q15M PRN; Protocol PRN Reason: per Hypoglycemia Standing Ord. Docusate Sodium (Docusate Sodium 100 Mg Capsule) 100 mg PO DAILY [facility] Last Admin: 12/18/21 10:03 Dose: Not Given Documented By: ANGELIKA Non-Admin Reason: Patient Refused Famotidine (Famotidine 20 Mg Tablet) 20 mg PO BID [facility] Last Admin: 12/18/21 10:03 Dose: Not Given Documented By: ANGELIKA Non-Admin Reason: Patient Refused Fentanyl (Fentanyl Citrate/Pf 100 Mcg/2 Ml Vial) 12.5 mcg IVPUSH Q5M PRN; Protocol PRN Reason: Pain, Moderate (Pain Scale 4-6 Glucose (Glucose Gel 15 Gm Gel..Gram.) 15 gm PO Q15M PRN; Protocol PRN Reason: per Hypoglycemia Standing Ord. Hydralazine HCl (Hydralazine Hcl 25 Mg Tablet) 25 mg PO TID [facility]; Protocol Last Admin: 12/18/21 10:04 Dose: Not Given Documented By: ANGELIKA Non-Admin Reason: Patient Refused Sodium Bicarbonate 150 meq/ (Dextrose) 1,000 mls @ 150 mls/hr IV .Q6H40M [facility] Last Admin: 12/18/21 04:40 Dose: 150 mls/hr Documented By: ANASTACIA Insulin Human Lispro (Insulin Lispro 100 Unit/Ml 3 Ml Vial) 0 unit SUBCUT QIDACHS [facility]; Protocol Last Admin: 12/18/21 09:32 Dose: Not Given Documented By: ANGELIKA Non-Admin Reason: Patient Refused Magnesium Oxide (Magnesium Oxide 400 Mg Tablet) 400 mg PO BID [facility] Last Admin: 12/18/21 10:04 Dose: Not Given Documented By: ANGELIKA Non-Admin Reason: Patient Refused Multivitamins/Vitamin C (Multivitamin Tablet) 1 tab PO DAILY [facility] Last Admin: 12/18/21 10:04 Dose: Not Given Documented By: ANGELIKA Non-Admin Reason: Patient Refused Nystatin (Nystatin Powder 15 Gm Bottle) 1 appl TOPICAL BID [facility]; Protocol Last Admin: 12/18/21 10:04 Dose: Not Given Documented By: ANGELIKA Non-Admin Reason: Patient Refused Ondansetron HCl (Ondansetron Hcl 4 Mg/2 Ml Vial) 4 mg IVPUSH Q8H PRN PRN Reason: Nausea and Vomiting Ondansetron HCl (Ondansetron Hcl 4 Mg/2 Ml Vial) 4 mg IVPUSH ONCE PRN PRN Reason: Nausea and Vomiting Pharmacy Consult (Consult Rx Perform Med Rec) 1 each MISCELLANE ONCE PRN PRN Reason: Consult order Sodium Chloride (0.9 % Sodium Chloride Flush 3 Ml Syringe) 3 ml IVFLUSH QSHIFT [facility] Last Admin: 12/18/21 10:02 Dose: Not Given Documented By: ANGELIKA Non-Admin Reason: IV Running Tamsulosin HCl (Tamsulosin Hcl 0.4 Mg Capsule) 0.4 mg PO BEDTIME [facility] Last Admin: 12/17/21 21:58 Dose: 0.4 mg Documented By: ANASTACIA Vitamin D (Cholecalciferol (Vitamin D3) 25 Mcg Tablet) 50 mcg PO DAILY [facility] Last Admin: 12/18/21 10:03 Dose: Not Given Documented By: ANGELIKA Non-Admin Reason: Patient Refused Zinc Sulfate (Zinc Sulfate 220 Mg Capsule) 50 mg PO DAILY [facility] Last Admin: 12/18/21 10:04 Dose: Not Given Documented By: ANGELIKA Non-Admin Reason: Patient Refused Labs CBC & Chem 7: 12/18/21 07:03 12/17/21 06:03 Labs: Laboratory Results - last 24 hr 12/17/21 12/17/21 12/18/21 11:33 20:07 07:03 MCV 78.7 L MCH 27.3 MCHC 34.7 RDW 17.8 H Plt Count 193 MPV 11.4 Absolute Nucleated RBC 0.000 Nucleated RBC % (auto) 0.0 POC Glucose 262 H 223 H Microbiology Microbiology Results: Microbiology 12/17/21 Unknown Urine Culture - Preliminary Urine Other - Kidney Left Culture in progress. 12/16/21 22:37 Urine Culture - Final Urine clean catch - Urine cowart top Assessment and Plan (1) Metabolic encephalopathy: Status: Acute (2) Acute kidney injury: Status: Acute (3) Metabolic acidosis: Status: Acute Plan 81 year-old man with CKD4, recurrent nephrolithiasis, colon CA s/p colostomy, essential HTN, DM2, and PTSD who presents today with worsening confusion with alternating lethargy and agitated delirium for the past 2 days.? Found to have ESTUARDO with serum creatinine up to 9.7 from baseline of 3, uremia with BUN of 128, and severe metabolic acidosis with serum bicarbonate of 6 and venous pH of 7.22. # ESTUARDO/CKD4 and progressing to ESRD now Had cystoscopy 12/[address] Kang with the following Post Operative Diagnosis:? bilateral hydronephrosis, acute on chronic renal failure, pyelonephritis left side Procedure:? cystoscopy, left stent removal,? left retrograde,left renal pelvis aspiration, left stent placement, right retrograde,? right stent placement -lab pending today # severe metabolic acidosis bicab was 6 and most recent 15 -continue bicab drip # metabolic encephalopathy, he is refusing meds, vital and lab this morning. - suspect due to uremia/ESTUARDO; may have toxic component from levofloxacin as well [he was prescribed this empirically for UTI as outpt], he remains conrfused # hypoMg - due to renal wasting; follow level # hx CVA - Aggrenox on hold for possible dialysis line placement # HTN - continue carvedilol + hydralazine + amlodipine # DM2 - hold sitagliptin, give correction-dose lispro # VTE ppx: SCDs, hold heparin for anticipated nephrostomy # code: full In my clinical judgment, the patient requires continued inpatient hospitalization for the following reasons: severe metahbolic acidosis, ESTUARDO and may need acute dialysis Quality Stroke Does the patient have a stroke diagnosis?: No VTE Prior VTE?: No VTE Risk Level:: Medical - moderate - high VTE Device Contraindication: N/A - Device Ordered VTE Drug Contraindication: N/A - Med Ordered
[2021-12-18 10:34] LABS: Glucose, Whole Blood 221 mg/dL (60-115)
[2021-12-18 10:37] VITALS: BMI 19.9
--- NOTE | 2021-12-18 10:42 | MHC.CLN ---
RE: CONSULT PT IS MODERATELY MALNOURISHED PT WITH MILDLY DEPLETED SUBCUTANEOUS FAT AND MUSCLE MASS WITH CHRONIC POOR PO AND 18% NONSIGNIFICANT WT LOSS X 1 YEAR PT WITH INCREASED NUTRITION NEEDS R/T PRESSURE INJURY DIET RX: NPO WHEN DIET TO ADVANCE, RECOMMEND ADDING ENSURE PLUS HIGH PROTEIN BID TO INCREASE KCALS AND PROMOTE WOUND HEALING SUPP TO PROVIDE 700KCALS, 40G PROTEIN MONITOR PO INTAKE CLOSELY SEE ALSO FULL CLINICAL NUTRITION ASSESSMENT
[2021-12-18] MEDS: Insulin Lispro 100 UNIT/ML 3 ML VIAL SUBCUT ×3 (11:07→20:39)
[2021-12-18 11:11] VITALS: BP 174/80; PULSE 86; RESP 20; TEMP 36.8; O2SAT 97
--- NOTE | 2021-12-18 11:14 | P.PNNP_ITS ---
Subjective Subjective Date of Service: 12/18/21 Interval history: Seen AM. All recent data reviewed.S/P stent change. Labs from AM pending Physical Exam Vital Signs: Vital Signs: Last Vital Signs Temp 98.2 F 12/18/21 11:11 Pulse 86 12/18/21 11:11 Resp 20 12/18/21 11:11 BP 174/80 H 12/18/21 11:11 Pulse Ox 97 12/18/21 11:11 O2 Del Method 12/18/21 11:11 O2 Flow Rate 6 12/17/21 16:45 BMI result Body Mass Index 19.9 Const: General: no acute distress Neck: Neck: Yes supple Cardio: Rate: regular rate GI: Palpation (GI): Soft to palpation Neuro: General: moves all extremities Objective Data Labs CBC & Chem 7: 12/18/21 07:03 12/17/21 06:03 Labs: Laboratory Results - last 24 hr 12/17/21 12/17/21 12/18/21 11:33 20:07 07:03 WBC 9.4 RBC 3.15 L Hgb 8.6 L Hct 24.8 L MCV 78.7 L MCH 27.3 MCHC 34.7 RDW 17.8 H Plt Count 193 MPV 11.4 Absolute Nucleated RBC 0.000 Nucleated RBC % (auto) 0.0 POC Glucose 262 H 223 H 12/18/21 10:31 WBC RBC Hgb Hct MCV MCH MCHC RDW Plt Count MPV Absolute Nucleated RBC Nucleated RBC % (auto) POC Glucose 221 H Microbiology Microbiology Results: Microbiology 12/17/21 Unknown Urine Other - Kidney Left Urine Culture - Preliminary Culture in progress. 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 ESTUARDO on CKD in the setting of profound hypovolemia & hydronephrosis refractory to left stent Has GI losses from ostomy; S/P stent change; patient may Left Nephrostomy tube C/W NaBicarb 150meq/L at 150cc/hr; Labs from AM pending; No HD yet, but may soon need dialysis Patient's expressed concern that Mr. Mireles outpatient team is not able to adequately follow his progressive renal failure She expressed wishes to transfer care to [facility] through [place]. She had notified? his old outpatient renal Time Spent With Patient Time: Total time spent is greater than 50% in coordination of care (as documented) at patient's floor/unit and/or counseling patient: Progress Note: Quality Stroke Does the patient have a stroke diagnosis?: No
[2021-12-18] MEDS: amLODIPine Besylate 5 MG TABLET PO ×2 (11:20→20:41)
[2021-12-18] MEDS: Cyanocobalamin (Vitamin B-12) 1,000 MCG TABLET 1000 MCG PO (11:20)
[2021-12-18] MEDS: Multivitamin TABLET 1 TAB PO (11:20)
[2021-12-18] MEDS: Magnesium Oxide 400 MG TABLET PO ×2 (11:20→20:41)
[2021-12-18] MEDS: Cholecalciferol (Vitamin D3) 25 MCG TABLET 50 MCG PO (11:20)
[2021-12-18] MEDS: hydrALAZINE HCl 25 MG TABLET PO ×3 (11:20→20:41)
[2021-12-18] MEDS: Famotidine 20 MG TABLET PO ×2 (11:20→20:41)
[2021-12-18] MEDS: Docusate Sodium 100 MG CAPSULE PO (11:20)
[2021-12-18] MEDS: carvediloL 12.5 MG TABLET PO ×2 (11:21→20:41)
[2021-12-18 11:25] LABS: Anion Gap 21 (12-20); Blood Urea Nitrogen 108 mg/dL (9-16); Calcium 8.1 mg/dL (8.4-10.2); Carbon Dioxide 28 mmol/L (22-29); Chloride 98 mmol/L (96-108); Creatinine Clr Calc Pharmacy 6.5; Estimated Glomerular Filt Rate 7; Glucose Random 222 mg/dL (60-115); Magnesium 1.7 mg/dL (1.6-2.6); Sodium 144 mmol/L (135-145)
[2021-12-18] MEDS: Zinc Sulfate 220 MG CAPSULE PO (11:28)
--- NOTE | 2021-12-18 13:05 | HO.POSTANES ---
Post Anesthesia Evaluation Post Anesthesia Evaluation Vital Signs: Vital Signs Temp Pulse Resp BP Pulse Ox O2 Del Method 12/18/21 11:11 98.2 F 86 20 174/80 H 97 Room Air Anesthesia: Monitored Mental Status: Awake Pain Control: Satisfactory Nausea/Vomiting: None Hydration: Adequate Anesthesia-Related Issues: No Anes. Related Issues
[2021-12-18 15:58] VITALS: BP 119/62; PULSE 73; RESP 16; TEMP 36.6; O2SAT 95
[2021-12-18 16:01] VITALS: O2SAT 95
[2021-12-18 16:29] LABS: Glucose, Whole Blood 198 mg/dL (60-115)
[2021-12-18 19:35] VITALS: BP 137/66; PULSE 81; RESP 18; TEMP 37; O2SAT 94
[2021-12-18 19:51] LABS: Glucose, Whole Blood 266 mg/dL (60-115)
[2021-12-18] MEDS: Atorvastatin Calcium 10 MG TABLET PO (20:41)
[2021-12-18] MEDS: Tamsulosin HCL 0.4 MG CAPSULE PO (20:41)
[2021-12-18] MEDS: 0.9 % Sodium Chloride Flush 3 ML SYRINGE IVFLUSH (23:40)
[2021-12-19] VITALS (7 sets, daily range): BP systolic 122–158; BP diastolic 59–78; PULSE 72–82; RESP 16–20; TEMP 36.2–37.3; O2SAT 90–97
[2021-12-19 07:23] LABS: Glucose, Whole Blood 178 mg/dL (60-115)
[2021-12-19] MEDS: Multivitamin TABLET 1 TAB PO (07:55)
[2021-12-19] MEDS: Insulin Lispro 100 UNIT/ML 3 ML VIAL SUBCUT ×4 (07:55→22:14)
[2021-12-19] MEDS: 0.9 % Sodium Chloride Flush 3 ML SYRINGE IVFLUSH ×2 (07:57→22:13)
[2021-12-19] MEDS: Cyanocobalamin (Vitamin B-12) 1,000 MCG TABLET 1000 MCG PO (07:58)
[2021-12-19] MEDS: hydrALAZINE HCl 25 MG TABLET PO ×3 (07:58→22:11)
[2021-12-19] MEDS: Zinc Sulfate 220 MG CAPSULE PO (07:58)
[2021-12-19] MEDS: Magnesium Oxide 400 MG TABLET PO ×2 (07:58→22:10)
[2021-12-19] MEDS: amLODIPine Besylate 5 MG TABLET PO ×2 (07:59→22:10)
[2021-12-19] MEDS: Cholecalciferol (Vitamin D3) 25 MCG TABLET 50 MCG PO (07:59)
[2021-12-19] MEDS: Famotidine 20 MG TABLET PO ×2 (07:59→22:13)
[2021-12-19] MEDS: carvediloL 12.5 MG TABLET PO ×2 (07:59→22:10)
[2021-12-19] MEDS: Docusate Sodium 100 MG CAPSULE PO (07:59)
[2021-12-19 08:32] LABS: Anion Gap 21 (12-20); Blood Urea Nitrogen 94 mg/dL (9-16); Calcium 8.1 mg/dL (8.4-10.2); Carbon Dioxide 34 mmol/L (22-29); Chloride 94 mmol/L (96-108); Creatinine Clr Calc Pharmacy 7.1; Estimated Glomerular Filt Rate 8; Glucose Random 185 mg/dL (60-115); Potassium 2.9 mmol/L (3.3-5.1); Sodium 146 mmol/L (135-145)
--- NOTE | 2021-12-19 09:58 | HO.PM.IMPN ---
Subjective Subjective Date of Service: 12/20/21 Interval History: Seen in f/u for acute on chronic lashae failure, hydroneprhosis, uremia He is more lucid and cooperative today, good urine ouput, Scr trending down, Review of Systems no complaint Physical Exam Vital Signs: Vital Signs: Last Vital Signs Temp 97.2 F 12/19/21 07:06 Pulse 82 12/19/21 07:06 Resp 18 12/19/21 07:06 BP 144/64 H 12/19/21 07:06 Pulse Ox 97 12/19/21 07:06 O2 Del Method 12/19/21 07:06 O2 Flow Rate 6 12/17/21 16:45 BMI result Body Mass Index 19.9 Const: Other: Gen: ill appearing, alert and more coherent HEENT: sclera anicteric, moist mucus membranes Neck: supple Lungs: clear to auscultation bilaterally Heart: regular rate and rhythm, no murmurs Abd: soft, non-tender, non-distended, colostomy in place draining liquid brown stool Ext: no edema Skin: warm/well-perfused Neuro: somnolent, awakens only briefly Psych: impaired insight Objective Data Active Medications Acetaminophen (Acetaminophen 325 Mg Tablet) 650 mg PO Q6H PRN PRN Reason: Pain, Mild (Pain Scale 1-3) Last Admin: 12/17/21 21:57 Dose: 650 mg Documented By: ANASTACIA Acetaminophen (Acetaminophen 325 Mg Tablet) 650 mg PO ONCE PRN PRN Reason: Pain, Mild (Pain Scale 1-3) Amlodipine Besylate (Amlodipine Besylate 5 Mg Tablet) 5 mg PO BID [facility]; Protocol Last Admin: 12/19/21 07:59 Dose: 5 mg Documented By: PIPER Atorvastatin Calcium (Atorvastatin Calcium 10 Mg Tablet) 10 mg PO BEDTIME [facility] Last Admin: 12/18/21 20:41 Dose: 10 mg Documented By: JUAN JOSE Calcium Carbonate (Calcium Carbonate 500 Mg Tablet) 1,000 mg PO BID [facility] Last Admin: 12/19/21 07:59 Dose: 1,000 mg Documented By: PIPER Carvedilol (Carvedilol 12.5 Mg Tablet) 12.5 mg PO BID [facility]; Protocol Last Admin: 12/19/21 07:59 Dose: 12.5 mg Documented By: PIPER Cyanocobalamin (Cyanocobalamin (Vitamin B-12) 1,000 Mcg Tablet) 1,000 mcg PO DAILY [facility] Last Admin: 12/19/21 07:58 Dose: 1,000 mcg Documented By: PIPER Dextrose (Dextrose 50 % 25 Gm/50 Ml Syringe) 25 gm IVPUSH Q15M PRN; Protocol PRN Reason: per Hypoglycemia Standing Ord. Docusate Sodium (Docusate Sodium 100 Mg Capsule) 100 mg PO DAILY [facility] Last Admin: 12/19/21 07:59 Dose: 100 mg Documented By: PIPER Famotidine (Famotidine 20 Mg Tablet) 20 mg PO BID [facility] Last Admin: 12/19/21 07:59 Dose: 20 mg Documented By: PIPER Fentanyl (Fentanyl Citrate/Pf 100 Mcg/2 Ml Vial) 12.5 mcg IVPUSH Q5M PRN; Protocol PRN Reason: Pain, Moderate (Pain Scale 4-6 Glucose (Glucose Gel 15 Gm Gel..Gram.) 15 gm PO Q15M PRN; Protocol PRN Reason: per Hypoglycemia Standing Ord. Hydralazine HCl (Hydralazine Hcl 25 Mg Tablet) 25 mg PO TID [facility]; Protocol Last Admin: 12/19/21 07:58 Dose: 25 mg Documented By: PIPER Insulin Human Lispro (Insulin Lispro 100 Unit/Ml 3 Ml Vial) 0 unit SUBCUT QIDACHS [facility]; Protocol Last Admin: 12/19/21 07:55 Dose: 2 unit Documented By: PIPER Magnesium Oxide (Magnesium Oxide 400 Mg Tablet) 400 mg PO BID [facility] Last Admin: 12/19/21 07:58 Dose: 400 mg Documented By: PIPER Multivitamins/Vitamin C (Multivitamin Tablet) 1 tab PO DAILY [facility] Last Admin: 12/18/21 11:20 Dose: 1 tab Documented By: FOGARTViet Nystatin (Nystatin Powder 15 Gm Bottle) 1 appl TOPICAL BID [facility]; Protocol Last Admin: 12/18/21 20:47 Dose: Not Given Documented By: JUAN JOSE Non-Admin Reason: Med Not Available Ondansetron HCl (Ondansetron Hcl 4 Mg/2 Ml Vial) 4 mg IVPUSH Q8H PRN PRN Reason: Nausea and Vomiting Ondansetron HCl (Ondansetron Hcl 4 Mg/2 Ml Vial) 4 mg IVPUSH ONCE PRN PRN Reason: Nausea and Vomiting Pharmacy Consult (Consult Rx Perform Med Rec) 1 each MISCELLANE ONCE PRN PRN Reason: Consult order Sodium Chloride (0.9 % Sodium Chloride Flush 3 Ml Syringe) 3 ml IVFLUSH QSHIFT [facility] Last Admin: 12/19/21 07:57 Dose: 3 ml Documented By: PIPER Tamsulosin HCl (Tamsulosin Hcl 0.4 Mg Capsule) 0.4 mg PO BEDTIME [facility] Last Admin: 12/18/21 20:41 Dose: 0.4 mg Documented By: JUAN JOSE Vitamin D (Cholecalciferol (Vitamin D3) 25 Mcg Tablet) 50 mcg PO DAILY [facility] Last Admin: 12/19/21 07:59 Dose: 50 mcg Documented By: PIPER Zinc Sulfate (Zinc Sulfate 220 Mg Capsule) 220 mg PO DAILY [facility] Last Admin: 12/19/21 07:58 Dose: 220 mg Documented By: PIPER Labs CBC & Chem 7: 12/18/21 07:03 12/20/21 06:22 Labs: Laboratory Results - last 24 hr 12/18/21 12/18/21 12/18/21 07:03 10:31 16:20 Anion Gap 21 H Estim Creat Clear Calc 6.5 Estimated GFR 7 POC Glucose 221 H 198 H Random Glucose 222 H Calcium 8.1 L Magnesium 1.7 12/18/21 12/19/21 12/19/21 19:33 07:05 07:50 Anion Gap 21 H Estim Creat Clear Calc 7.1 Estimated GFR 8 POC Glucose 266 H 178 H Random Glucose 185 H Calcium 8.1 L Magnesium Microbiology Microbiology Results: Microbiology 12/17/21 Unknown Urine Culture - Preliminary Urine Other - Kidney Left Culture in progress. 12/16/21 22:37 Urine Culture - Final Urine clean catch - Urine cowart top Assessment and Plan (1) Metabolic encephalopathy: Status: Acute (2) Acute kidney injury: Status: Acute (3) Metabolic acidosis: Status: Acute Plan 81 year-old man with CKD4, recurrent nephrolithiasis, colon CA s/p colostomy, essential HTN, DM2, and PTSD who presents today with worsening confusion with alternating lethargy and agitated delirium for the past 2 days.? Found to have ESTUARDO with serum creatinine up to 9.7 from baseline of 3, uremia with BUN of 128, and severe metabolic acidosis with serum bicarbonate of 6 and venous pH of 7.22. # ESTUARDO/CKD4 and progressing but not quite ESRD yet Had cystoscopy 12/[address] Kang with the following Post Operative Diagnosis:? bilateral hydronephrosis, acute on chronic renal failure, pyelonephritis left side Procedure:? cystoscopy, left stent removal,? left retrograde,left renal pelvis aspiration, left stent placement, right retrograde,? right stent placement -continue trending Scr #Hypokalemia---replace and follow level # severe metabolic acidosis bicab was 6 and most recent and now 34 #Mild Hypernatremia 146, encourage oral water # metabolic encephalopathy, - suspect due to uremia/ESTUARDO; may have toxic component from levofloxacin as well [he was prescribed this empirically for UTI as outpt], he remains conrfused -improved # hypoMg - due to renal wasting; follow level # hx CVA - Aggrenox # HTN - continue carvedilol + hydralazine + amlodipine # DM2 - hold sitagliptin, give correction-dose lispro # VTE ppx: SCDs, hold heparin post cysoscopy stent placment and presently with some hematur # code: full In my clinical judgment, the patient requires continued inpatient hospitalization for the following reasons: severe metahbolic acidosis, ESTUARDO and may need acute dialysis Quality Stroke Does the patient have a stroke diagnosis?: No VTE Prior VTE?: No VTE Risk Level:: Medical - moderate - high VTE Device Contraindication: N/A - Device Ordered VTE Drug Contraindication: N/A - Med Ordered
[2021-12-19 10:18] LABS: Magnesium 1.7 mg/dL (1.6-2.6)
--- NOTE | 2021-12-19 10:50 | P.PNNP_ITS ---
Subjective Subjective Date of Service: 12/19/21 Interval history: Events noted. All recent data reviewed.D/W Med Attending Physical Exam Vital Signs: Vital Signs: Last Vital Signs Temp 97.2 F 12/19/21 07:06 Pulse 82 12/19/21 07:06 Resp 18 12/19/21 07:06 BP 144/64 H 12/19/21 07:06 Pulse Ox 97 12/19/21 07:06 O2 Del Method 12/19/21 07:06 O2 Flow Rate 6 12/17/21 16:45 BMI result Body Mass Index 19.9 Const: General: no acute distress Neck: Neck: Yes supple Resp: Auscultation: diminished lung sounds Cardio: Rate: regular rate GI: Palpation (GI): Soft to palpation Neuro: General: moves all extremities Objective Data Labs CBC & Chem 7: 12/18/21 07:03 12/19/21 07:50 Labs: Laboratory Results - last 24 hr 12/18/21 12/18/21 12/18/21 07:03 16:20 19:33 Sodium 144 Potassium 3.0 L Chloride 98 Carbon Dioxide 28 Anion Gap 21 H BUN 108 H Creatinine 7.67 H* Estim Creat Clear Calc 6.5 Estimated GFR 7 POC Glucose 198 H 266 H Random Glucose 222 H Calcium 8.1 L Magnesium 1.7 12/19/21 12/19/21 07:05 07:50 Sodium 146 H Potassium 2.9 L Chloride 94 L Carbon Dioxide 34 H Anion Gap 21 H BUN 94 H Creatinine 6.98 H* Estim Creat Clear Calc 7.1 Estimated GFR 8 POC Glucose 178 H Random Glucose 185 H Calcium 8.1 L Magnesium 1.7 Microbiology Microbiology Results: Microbiology 12/17/21 Unknown Urine Other - Kidney Left Urine Culture - Preliminary Culture in progress. 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 ESTUARDO on CKD in the setting of profound hypovolemia & hydronephrosis refractory to left stent Hypernatremia Hypokalemia Metabolic Alkalosis Has GI losses from ostomy; S/P stent change; D/Breezy NaBicarb ; Started D5W with K; No dialysis needed now Patient's expressed concern that Mr. Mireles outpatient team is not able to adequately follow his progressive renal failure She expressed wishes to transfer care to [facility] through [place]. She had notified? his old outpatient renal Time Spent With Patient Time: Total time spent is greater than 50% in coordination of care (as documented) at patient's floor/unit and/or counseling patient: Progress Note: Quality Stroke Does the patient have a stroke diagnosis?: No
[2021-12-19 11:15] LABS: Glucose, Whole Blood 258 mg/dL (60-115)
[2021-12-19] MEDS: KCl 20 mEq in 5 % Dextrose 20 MEQ/1,000 ML IV.SOLN 100 MEQ IVCONT ×2 (11:31→22:16)
--- NOTE | 2021-12-19 13:40 | PM.UROPN ---
Subjective Subjective Date of Service: 12/19/21 Interval history: 80-year-old male Prior history of progressive chronic renal disease baseline creatinine 2.1 secondary to multiple episodes of obstructive nephropathy and recurrent stones with colon cancer therapy. Colectomy with chronic metabolic acidosis and stoma. Recurrent urosepsis. Initial presentation with ESTUARDO on CKD and persistent hydronephrosis Left stent exchanged and right stent placed with Carmona catheter 12/17 Creatinine is improving down to 7.0 from 9.7 Continue to follow Physical Exam Vital Signs: Vital Signs: Last Vital Signs Temp 99.2 F 12/19/21 11:18 Pulse 75 12/19/21 11:18 Resp 20 12/19/21 11:18 BP 122/59 L 12/19/21 11:18 Pulse Ox 90 L 12/19/21 11:18 O2 Del Method 12/19/21 11:18 O2 Flow Rate 6 12/17/21 16:45 BMI result Body Mass Index 19.9 Const: General: cooperative, healthy appearing, comfortable and no acute distress Orientation/consciousness: patient oriented x3 HEENT: Face and sinus: Yes normal facial exam Mouth: moist mucous membranes Neck: Neck: Yes normal visual inspection, Yes full ROM and Yes trachea midline Chest: Chest palpation & inspection: normal inspection of the chest Resp: Effort & Inspection: normal respiratory effort, able to speak in complete sentences and no respiratory distress GI: Inspection: Yes normal to inspection Back/Spine/Pelvis: Cervical Spine: normal cervical lordosis Thoracic/Lumbar Spine: thoracic and lumbar spine normal to inspection Skin: General skin exam: no rashes or lesions noted Neuro: General: patient oriented x3, gait normal, tone normal and moves all extremities Extrem: General: Yes normal to inspection and Yes capillary refill normal Urology Results Labs CBC & Chem 7: 12/18/21 07:03 12/19/21 07:50 Labs: Laboratory Results - last 24 hr 12/18/21 12/18/21 12/19/21 16:20 19:33 07:05 Sodium Potassium Chloride Carbon Dioxide Anion Gap BUN Creatinine Estim Creat Clear Calc Estimated GFR POC Glucose 198 H 266 H 178 H Random Glucose Calcium Magnesium 12/19/21 12/19/21 07:50 11:02 Sodium 146 H Potassium 2.9 L Chloride 94 L Carbon Dioxide 34 H Anion Gap 21 H BUN 94 H Creatinine 6.98 H* Estim Creat Clear Calc 7.1 Estimated GFR 8 POC Glucose 258 H Random Glucose 185 H Calcium 8.1 L Magnesium 1.7 Progress Note: A&P Assessment and plan (1) Acute kidney injury: Status: Acute (2) Pyelonephritis: Status: Acute Plan Continue to follow creatinine Time Spent With Patient Time: Total time spent is greater than 50% in coordination of care (as documented) at patient's floor/unit and/or counseling patient: Progress Note: Quality Stroke Does the patient have a stroke diagnosis?: No
--- NOTE | 2021-12-19 14:36 | MHC.CM.PN ---
per aby pt pt not at baseline not ready for dc
[2021-12-19 16:17] LABS: Glucose, Whole Blood 266 mg/dL (60-115)
[2021-12-19 19:38] LABS: Glucose, Whole Blood 187 mg/dL (60-115)
[2021-12-19] MEDS: Atorvastatin Calcium 10 MG TABLET PO (22:10)
[2021-12-19] MEDS: Tamsulosin HCL 0.4 MG CAPSULE PO (22:10)
[2021-12-19] MEDS: Nystatin Powder 15 GM BOTTLE 1 APPL TOPICAL (22:14)
[2021-12-20 02:32] VITALS: BP 142/75; PULSE 78; RESP 20; TEMP 36.9; O2SAT 96
[2021-12-20 07:26] VITALS: BP 152/77; PULSE 75; RESP 18; TEMP 36.2; O2SAT 93
[2021-12-20 07:29] LABS: Anion Gap 15 (12-20); Blood Urea Nitrogen 77 mg/dL (9-16); Carbon Dioxide 34 mmol/L (22-29); Chloride 93 mmol/L (96-108); Creatinine Clr Calc Pharmacy 8.2; Estimated Glomerular Filt Rate 9; Glucose Random 221 mg/dL (60-115); Potassium 3.4 mmol/L (3.3-5.1); Sodium 139 mmol/L (135-145)
[2021-12-20 07:34] LABS: Glucose, Whole Blood 201 mg/dL (60-115)
[2021-12-20] MEDS: KCl 20 mEq in 5 % Dextrose 20 MEQ/1,000 ML IV.SOLN 100 MEQ IVCONT ×2 (08:34→16:50)
[2021-12-20] MEDS: Multivitamin TABLET 1 TAB PO (08:35)
[2021-12-20] MEDS: Insulin Lispro 100 UNIT/ML 3 ML VIAL SUBCUT ×4 (08:35→23:33)
[2021-12-20] MEDS: Docusate Sodium 100 MG CAPSULE PO (08:35)
[2021-12-20] MEDS: hydrALAZINE HCl 25 MG TABLET PO ×3 (08:35→23:33)
[2021-12-20] MEDS: Cholecalciferol (Vitamin D3) 25 MCG TABLET 50 MCG PO (08:35)
[2021-12-20] MEDS: Cyanocobalamin (Vitamin B-12) 1,000 MCG TABLET 1000 MCG PO (08:35)
[2021-12-20] MEDS: Zinc Sulfate 220 MG CAPSULE PO (08:35)
[2021-12-20] MEDS: carvediloL 12.5 MG TABLET PO ×2 (08:35→23:32)
[2021-12-20] MEDS: amLODIPine Besylate 5 MG TABLET PO ×2 (08:35→23:32)
[2021-12-20] MEDS: Magnesium Oxide 400 MG TABLET PO ×2 (08:35→23:32)
[2021-12-20] MEDS: Famotidine 20 MG TABLET PO ×2 (08:35→23:32)
[2021-12-20] MEDS: Nystatin Powder 15 GM BOTTLE 1 APPL TOPICAL (08:36)
--- NOTE | 2021-12-20 10:27 | PM.PNNEP ---
Subjective Subjective Date of Service: 12/20/21 Interval history: Events noted. All recent data reviewed.D/W Med Attending Physical Exam Vital Signs: Vital Signs: Last Vital Signs Temp 97.1 F 12/20/21 07:26 Pulse 75 12/20/21 07:26 Resp 18 12/20/21 07:26 BP 152/77 H 12/20/21 07:26 Pulse Ox 93 12/20/21 07:26 O2 Del Method 12/20/21 07:26 O2 Flow Rate 6 12/17/21 16:45 BMI result Body Mass Index 19.9 Const: General: comfortable Orientation/consciousness: patient oriented x3 Eyes: EOM: EOMs intact bilaterally Neck: Neck: Yes supple Resp: Auscultation: diminished lung sounds Cardio: Rate: regular rate GI: Palpation (GI): Soft to palpation Neuro: General: patient oriented x3 and moves all extremities Extrem: General: Yes no pedal edema Objective Data Labs CBC & Chem 7: 12/18/21 07:03 12/20/21 06:22 Labs: Laboratory Results - last 24 hr 12/19/21 12/19/21 12/19/21 11:02 16:12 19:28 Sodium Potassium Chloride Carbon Dioxide Anion Gap BUN Creatinine Estim Creat Clear Calc Estimated GFR POC Glucose 258 H 266 H 187 H Random Glucose Calcium 12/20/21 12/20/21 06:22 07:25 Sodium 139 Potassium 3.4 Chloride 93 L Carbon Dioxide 34 H Anion Gap 15 BUN 77 H Creatinine 6.08 H* Estim Creat Clear Calc 8.2 Estimated GFR 9 POC Glucose 201 H Random Glucose 221 H Calcium 8.0 L Microbiology Microbiology Results: Microbiology 12/17/21 Unknown Urine Other - Kidney Left Urine Culture - Preliminary Enterococcus/Streptococcus sp Yeast 12/16/21 22:37 Urine clean catch - Urine cowart top Urine Culture - Final Procedures Date of Service Date of Service: 12/20/21 Assessment & Plan Assessment and plan (1) Acute kidney injury: Status: Acute Assessment and Plan: 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 ESTUARDO on CKD in the setting of profound hypovolemia & hydronephrosis refractory to left stent Hypokalemia Has GI losses from ostomy; S/P stent change; D/Breezy NaBicarb yesterday ; Was started D5W with K yesterday; Renal funciton improving; No dialysis needed now Patient's expressed concern that Mr. Mireles outpatient team is not able to adequately follow his progressive renal failure She expressed wishes to transfer care to [facility] through [place]. She had notified? his old outpatient renal Time Spent With Patient Time: Total time spent is greater than 50% in coordination of care (as documented) at patient's floor/unit and/or counseling patient: Progress Note: Quality Stroke Does the patient have a stroke diagnosis?: No
--- NOTE | 2021-12-20 10:46 | HO.PM.IMPN ---
Subjective Subjective Date of Service: 12/20/21 Interval History: Seen in f/u for acute on chronic lashae failure, hydroneprhosis, uremia He continues to be more lucid and cooperative today, good urine ouput, Scr trending down Review of Systems no complaint Physical Exam Vital Signs: Vital Signs: Last Vital Signs Temp 97.1 F 12/20/21 07:26 Pulse 75 12/20/21 07:26 Resp 18 12/20/21 07:26 BP 152/77 H 12/20/21 07:26 Pulse Ox 93 12/20/21 07:26 O2 Del Method 12/20/21 07:26 O2 Flow Rate 6 12/17/21 16:45 BMI result Body Mass Index 19.9 Const: Other: Gen: ill appearing, alert and more coherent HEENT: sclera anicteric, moist mucus membranes Neck: supple Lungs: clear to auscultation bilaterally Heart: regular rate and rhythm, no murmurs Abd: soft, non-tender, non-distended, colostomy in place draining liquid brown stool Ext: no edema Skin: warm/well-perfused Neuro: somnolent, awakens only briefly Psych: impaired insight Objective Data Active Medications Acetaminophen (Acetaminophen 325 Mg Tablet) 650 mg PO Q6H PRN PRN Reason: Pain, Mild (Pain Scale 1-3) Last Admin: 12/17/21 21:57 Dose: 650 mg Documented By: ANASTACIA Acetaminophen (Acetaminophen 325 Mg Tablet) 650 mg PO ONCE PRN PRN Reason: Pain, Mild (Pain Scale 1-3) Amlodipine Besylate (Amlodipine Besylate 5 Mg Tablet) 5 mg PO BID [facility]; Protocol Last Admin: 12/20/21 08:35 Dose: 5 mg Documented By: UCHE Atorvastatin Calcium (Atorvastatin Calcium 10 Mg Tablet) 10 mg PO BEDTIME [facility] Last Admin: 12/19/21 22:10 Dose: 10 mg Documented By: DESROA Calcium Carbonate (Calcium Carbonate 500 Mg Tablet) 1,000 mg PO BID [facility] Last Admin: 12/20/21 08:35 Dose: 1,000 mg Documented By: UCHE Carvedilol (Carvedilol 12.5 Mg Tablet) 12.5 mg PO BID [facility]; Protocol Last Admin: 12/20/21 08:35 Dose: 12.5 mg Documented By: FARIBA-JACKY Cyanocobalamin (Cyanocobalamin (Vitamin B-12) 1,000 Mcg Tablet) 1,000 mcg PO DAILY [facility] Last Admin: 12/20/21 08:35 Dose: 1,000 mcg Documented By: FARIBA-JACKY Dextrose (Dextrose 50 % 25 Gm/50 Ml Syringe) 25 gm IVPUSH Q15M PRN; Protocol PRN Reason: per Hypoglycemia Standing Ord. Docusate Sodium (Docusate Sodium 100 Mg Capsule) 100 mg PO DAILY [facility] Last Admin: 12/20/21 08:35 Dose: 100 mg Documented By: FARIBA-JACKY Famotidine (Famotidine 20 Mg Tablet) 20 mg PO BID [facility] Last Admin: 12/20/21 08:35 Dose: 20 mg Documented By: FARIBA-JACKY Fentanyl (Fentanyl Citrate/Pf 100 Mcg/2 Ml Vial) 12.5 mcg IVPUSH Q5M PRN; Protocol PRN Reason: Pain, Moderate (Pain Scale 4-6 Glucose (Glucose Gel 15 Gm Gel..Gram.) 15 gm PO Q15M PRN; Protocol PRN Reason: per Hypoglycemia Standing Ord. Hydralazine HCl (Hydralazine Hcl 25 Mg Tablet) 25 mg PO TID [facility]; Protocol Last Admin: 12/20/21 08:35 Dose: 25 mg Documented By: UCHE Potassium Chloride/Dextrose (Kcl 20 Meq In 5 % Dextrose) 20 meq in 1,000 mls @ 100 mls/hr IVCONT .Q10H [facility] Last Admin: 12/20/21 08:34 Dose: 100 mls/hr Documented By: FARIBA-JACKY Insulin Human Lispro (Insulin Lispro 100 Unit/Ml 3 Ml Vial) 0 unit SUBCUT QIDACHS [facility]; Protocol Last Admin: 12/20/21 08:35 Dose: 4 unit Documented By: UCHE Magnesium Oxide (Magnesium Oxide 400 Mg Tablet) 400 mg PO BID [facility] Last Admin: 12/20/21 08:35 Dose: 400 mg Documented By: UCHE Multivitamins/Vitamin C (Multivitamin Tablet) 1 tab PO DAILY [facility] Last Admin: 12/20/21 08:35 Dose: 1 tab Documented By: FARIBA-JACKY Nystatin (Nystatin Powder 15 Gm Bottle) 1 appl TOPICAL BID [facility]; Protocol Last Admin: 12/20/21 08:36 Dose: 1 appl Documented By: UCHE Ondansetron HCl (Ondansetron Hcl 4 Mg/2 Ml Vial) 4 mg IVPUSH Q8H PRN PRN Reason: Nausea and Vomiting Ondansetron HCl (Ondansetron Hcl 4 Mg/2 Ml Vial) 4 mg IVPUSH ONCE PRN PRN Reason: Nausea and Vomiting Pharmacy Consult (Consult Rx Perform Med Rec) 1 each MISCELLANE ONCE PRN PRN Reason: Consult order Sodium Chloride (0.9 % Sodium Chloride Flush 3 Ml Syringe) 3 ml IVFLUSH QSHIFT [facility] Last Admin: 12/20/21 08:24 Dose: Not Given Documented By: UCHE Non-Admin Reason: See Note Tamsulosin HCl (Tamsulosin Hcl 0.4 Mg Capsule) 0.4 mg PO BEDTIME [facility] Last Admin: 12/19/21 22:10 Dose: 0.4 mg Documented By: JUAN Vitamin D (Cholecalciferol (Vitamin D3) 25 Mcg Tablet) 50 mcg PO DAILY [facility] Last Admin: 12/20/21 08:35 Dose: 50 mcg Documented By: UCHE Zinc Sulfate (Zinc Sulfate 220 Mg Capsule) 220 mg PO DAILY [facility] Last Admin: 12/20/21 08:35 Dose: 220 mg Documented By: UCHE Labs CBC & Chem 7: 12/18/21 07:03 12/20/21 06:22 Labs: Laboratory Results - last 24 hr 12/19/21 12/19/21 12/19/21 11:02 16:12 19:28 Anion Gap Estim Creat Clear Calc Estimated GFR POC Glucose 258 H 266 H 187 H Random Glucose Calcium 12/20/21 12/20/21 06:22 07:25 Anion Gap 15 Estim Creat Clear Calc 8.2 Estimated GFR 9 POC Glucose 201 H Random Glucose 221 H Calcium 8.0 L Microbiology Microbiology Results: Microbiology 12/17/21 Unknown Urine Culture - Preliminary Urine Other - Kidney Left Enterococcus/Streptococcus sp Yeast Assessment and Plan (1) Metabolic encephalopathy: Status: Acute (2) Acute kidney injury: Status: Acute (3) Metabolic acidosis: Status: Acute Plan 81 year-old man with CKD4, recurrent nephrolithiasis, colon CA s/p colostomy, essential HTN, DM2, and PTSD who presents today with worsening confusion with alternating lethargy and agitated delirium for the past 2 days.? Found to have ESTUARDO with serum creatinine up to 9.7 from baseline of 3, uremia with BUN of 128, and severe metabolic acidosis with serum bicarbonate of 6 and venous pH of 7.22. # ESTUARDO/CKD4 and progressing but not quite ESRD yet Had cystoscopy 12/[address] Kang with the following Post Operative Diagnosis:? bilateral hydronephrosis, acute on chronic renal failure, pyelonephritis left side Procedure:? cystoscopy, left stent removal,? left retrograde,left renal pelvis aspiration, left stent placement, right retrograde,? right stent placement -continue trending Scr #Hypokalemia---replace and follow level # severe metabolic acidosis bicab was 6 and most recent and now 34 #Mild Hypernatremia 146, encourage oral water # metabolic encephalopathy, - suspect due to uremia/ESTUARDO; may have toxic component from levofloxacin as well [he was prescribed this empirically for UTI as outpt], he remains conrfused -improved # hypoMg - due to renal wasting; follow level # hx CVA - Aggrenox # HTN - continue carvedilol + hydralazine + amlodipine # DM2 - hold sitagliptin, give correction-dose lispro # VTE ppx: SCDs, hold heparin post cysoscopy stent placment and presently with some hematuria #Urine culture is now showing enteroccoccus, yeast and strep--Will discuss with ID if warrrants treatement, has chronic bain and could be contamination # code: full In my clinical judgment, the patient requires continued inpatient hospitalization for the following reasons: severe metahbolic acidosis, ESTUARDO and may need acute dialysis Quality Stroke Does the patient have a stroke diagnosis?: No VTE Prior VTE?: No VTE Risk Level:: Medical - moderate - high VTE Device Contraindication: N/A - Device Ordered VTE Drug Contraindication: N/A - Med Ordered
--- NOTE | 2021-12-20 11:13 | MHC.CLN ---
F/U PT IS MODERATELY MALNOURISHED SEE ALSO FULL CLINICAL NUTRITION ASSESSMENT DATED 12/18/21 DIET RX: 2000DM-APPROPRIATE RECOMMEND ADDING ENSURE PLUS HIGH PROTEIN BID TO INCREASE KCALS SUPP TO PROVIDE 700KCALS, 40G PROTEIN MONITOR PO INTAKE CLOSELY NOTED NO PRESSURE INJURIES; REDNESS DOCUMENTED TO [facility]
[2021-12-20 11:44] LABS: Glucose, Whole Blood 220 mg/dL (60-115)
[2021-12-20 12:00] VITALS: BP 117/62; PULSE 76; RESP 18; TEMP 36.7; O2SAT 96
--- NOTE | 2021-12-20 12:53 | MHC.CM.PN ---
Met with patient and his to discuss discharge planning. Per MD rounds discharge 1-2 days. PT eval is pending. STR Preference is [facility]. The referral was made. DP STR vs home with [employer] [facility], via BLS.
[2021-12-20 15:45] VITALS: BP 145/71; PULSE 80; RESP 18; TEMP 36.8; O2SAT 93
[2021-12-20 16:03] LABS: Glucose, Whole Blood 315 mg/dL (60-115)
[2021-12-20] MEDS: 0.9 % Sodium Chloride Flush 3 ML SYRINGE IVFLUSH (16:50)
--- NOTE | 2021-12-20 17:32 | PC.NURSE ---
Pt's at bedside assisting with care. Pt calm and cooperative with care. IV infusion maintained. Ostomy intact
[2021-12-20 19:29] VITALS: BP 151/75; PULSE 79; RESP 18; TEMP 37; O2SAT 95
[2021-12-20 19:49] LABS: Glucose, Whole Blood 225 mg/dL (60-115)
[2021-12-20] MEDS: Tamsulosin HCL 0.4 MG CAPSULE PO (23:32)
[2021-12-20] MEDS: Atorvastatin Calcium 10 MG TABLET PO (23:32)
[2021-12-20 23:39] VITALS: BP 160/69; PULSE 72; RESP 20; TEMP 36.8; O2SAT 96
[2021-12-21] VITALS (8 sets, daily range): BP systolic 112–161; BP diastolic 52–77; PULSE 71–94; RESP 17–20; TEMP 36.3–37.5; O2SAT 93–97
[2021-12-21] MEDS: KCl 20 mEq in 5 % Dextrose 20 MEQ/1,000 ML IV.SOLN 100 MEQ IVCONT (04:46)
[2021-12-21 07:21] LABS: Glucose, Whole Blood 203 mg/dL (60-115)
[2021-12-21] MEDS: carvediloL 12.5 MG TABLET PO ×2 (07:42→22:51)
[2021-12-21] MEDS: hydrALAZINE HCl 25 MG TABLET PO ×3 (07:42→22:51)
[2021-12-21] MEDS: Magnesium Oxide 400 MG TABLET PO ×2 (07:42→22:51)
[2021-12-21] MEDS: 0.9 % Sodium Chloride Flush 3 ML SYRINGE IVFLUSH ×2 (07:42→15:00)
[2021-12-21] MEDS: Insulin Lispro 100 UNIT/ML 3 ML VIAL SUBCUT ×4 (07:42→22:52)
[2021-12-21] MEDS: Famotidine 20 MG TABLET PO ×2 (07:43→22:51)
[2021-12-21] MEDS: amLODIPine Besylate 5 MG TABLET PO ×2 (07:43→22:52)
[2021-12-21] MEDS: Cyanocobalamin (Vitamin B-12) 1,000 MCG TABLET 1000 MCG PO (07:43)
[2021-12-21] MEDS: Docusate Sodium 100 MG CAPSULE PO (07:43)
[2021-12-21] MEDS: Zinc Sulfate 220 MG CAPSULE PO (07:43)
[2021-12-21] MEDS: Multivitamin TABLET 1 TAB PO (07:43)
[2021-12-21] MEDS: Cholecalciferol (Vitamin D3) 25 MCG TABLET 50 MCG PO (07:43)
[2021-12-21] MEDS: Nystatin Powder 15 GM BOTTLE 1 APPL TOPICAL ×2 (07:44→22:52)
[2021-12-21 07:46] LABS: Anion Gap 18 (12-20); Blood Urea Nitrogen 67 mg/dL (9-16); Calcium 8.1 mg/dL (8.4-10.2); Carbon Dioxide 27 mmol/L (22-29); Chloride 93 mmol/L (96-108); Creatinine Clr Calc Pharmacy 9.2; Estimated Glomerular Filt Rate 10; Glucose Random 206 mg/dL (60-115); Potassium 4.3 mmol/L (3.3-5.1); Sodium 134 mmol/L (135-145)
--- NOTE | 2021-12-21 09:48 | PM.PNNEP ---
Subjective Subjective Date of Service: 12/21/21 Interval history: Renal function improving. All recent data reviewed Physical Exam Vital Signs: Vital Signs: Last Vital Signs Temp 99.5 F 12/21/21 07:23 Pulse 79 12/21/21 07:23 Resp 20 12/21/21 07:23 BP 161/77 H 12/21/21 07:23 Pulse Ox 93 12/21/21 07:23 O2 Del Method 12/21/21 07:23 O2 Flow Rate 6 12/17/21 16:45 BMI result Body Mass Index 19.9 Const: General: no acute distress Eyes: EOM: EOMs intact bilaterally Neck: Neck: Yes supple Resp: Auscultation: diminished lung sounds Cardio: Rate: regular rate GI: Palpation (GI): Soft to palpation Neuro: General: moves all extremities Objective Data Labs CBC & Chem 7: 12/18/21 07:03 12/21/21 06:38 Labs: Laboratory Results - last 24 hr 12/20/21 12/20/21 12/20/21 11:29 15:56 19:35 Sodium Potassium Chloride Carbon Dioxide Anion Gap BUN Creatinine Estim Creat Clear Calc Estimated GFR POC Glucose 220 H 315 H 225 H Random Glucose Calcium 12/21/21 12/21/21 06:38 07:14 Sodium 134 L Potassium 4.3 D Chloride 93 L Carbon Dioxide 27 Anion Gap 18 BUN 67 H Creatinine 5.41 H* Estim Creat Clear Calc 9.2 Estimated GFR 10 POC Glucose 203 H Random Glucose 206 H Calcium 8.1 L Microbiology Microbiology Results: Microbiology 12/17/21 Unknown Urine Other - Kidney Left Urine Culture - Final Enterococcus raffinosus Lalitha albicans 12/16/21 22:37 Urine clean catch - Urine cowart top Urine Culture - Final Procedures Date of Service Date of Service: 12/21/21 Assessment & Plan Assessment and plan (1) Acute kidney injury: Status: Acute Assessment and Plan: Mr. 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 ESTUARDO on CKD in the setting of profound hypovolemia & hydronephrosis refractory to left stent Has GI losses from ostomy; S/P stent change; D/Breezy D5W with K ; Renal function improving; No dialysis needed now; C/W supportive care Patient's expressed concern that Mr. Mireles outpatient team is not able to adequately follow his progressive renal failure She expressed wishes to transfer care to [facility] through [facility]. She had notified? his old outpatient renal Time Spent With Patient Time: Total time spent is greater than 50% in coordination of care (as documented) at patient's floor/unit and/or counseling patient: Progress Note: Quality Stroke Does the patient have a stroke diagnosis?: No
--- NOTE | 2021-12-21 11:05 | PC.NURSE ---
Pt up to recliner with max 2 assist. Chair alarm on. Avasys in place. Call blankenship in reach
--- NOTE | 2021-12-21 11:21 | P.PNIM_ITS ---
Subjective Subjective Date of Service: 12/21/21 Interval History: Seen in f/u for acute on chronic lashae failure, hydroneprhosis, uremia No new issues, Cr trending down Review of Systems no complaint Physical Exam Vital Signs: Vital Signs: Last Vital Signs Temp 98.9 F 12/21/21 11:13 Pulse 71 12/21/21 11:13 Resp 20 12/21/21 11:13 BP 121/59 L 12/21/21 11:13 Pulse Ox 94 12/21/21 11:13 O2 Del Method 12/21/21 11:13 O2 Flow Rate 6 12/17/21 16:45 BMI result Body Mass Index 19.9 Const: Other: Gen: ill appearing, alert and more coherent HEENT: sclera anicteric, moist mucus membranes Neck: supple Lungs: clear to auscultation bilaterally Heart: regular rate and rhythm, no murmurs Abd: soft, non-tender, non-distended, colostomy in place draining liquid brown stool Ext: no edema Skin: warm/well-perfused Neuro: somnolent, awakens only briefly Psych: impaired insight Objective Data Active Medications Acetaminophen (Acetaminophen 325 Mg Tablet) 650 mg PO Q6H PRN PRN Reason: Pain, Mild (Pain Scale 1-3) Last Admin: 12/17/21 21:57 Dose: 650 mg Documented By: ANASTACIA Acetaminophen (Acetaminophen 325 Mg Tablet) 650 mg PO ONCE PRN PRN Reason: Pain, Mild (Pain Scale 1-3) Amlodipine Besylate (Amlodipine Besylate 5 Mg Tablet) [address] [facility]; Protocol Last Admin: 12/21/21 07:43 Dose: 5 mg Documented By: RICHARD Atorvastatin Calcium (Atorvastatin Calcium 10 Mg Tablet) [address] [facility] Last Admin: 12/20/21 23:32 Dose: 10 mg Documented By: DESROA Calcium Carbonate (Calcium Carbonate 500 Mg Tablet) 1,[address] [facility] Last Admin: 12/21/21 07:43 Dose: 1,000 mg Documented By: RICHARD Carvedilol (Carvedilol 12.5 Mg Tablet) 12.[address] [facility]; Protocol Last Admin: 12/21/21 07:42 Dose: 12.5 mg Documented By: RICHARD Cyanocobalamin (Cyanocobalamin (Vitamin B-12) 1,000 Mcg Tablet) 1,[address] [facility] Last Admin: 12/21/21 07:43 Dose: 1,000 mcg Documented By: RICHARD Dextrose (Dextrose 50 % 25 Gm/50 Ml Syringe) 25 gm IVPUSH Q15M PRN; Protocol PRN Reason: per Hypoglycemia Standing Ord. Docusate Sodium (Docusate Sodium 100 Mg Capsule) [address] [facility] Last Admin: 12/21/21 07:43 Dose: 100 mg Documented By: RICHARD Famotidine (Famotidine 20 Mg Tablet) [address] [facility] Last Admin: 12/21/21 07:43 Dose: 20 mg Documented By: RICHARD Fentanyl (Fentanyl Citrate/Pf 100 Mcg/2 Ml Vial) 12.5 mcg IVPUSH Q5M PRN; Protocol PRN Reason: Pain, Moderate (Pain Scale 4-6 Glucose (Glucose Gel 15 Gm Gel..Gram.) 15 gm PO Q15M PRN; Protocol PRN Reason: per Hypoglycemia Standing Ord. Hydralazine HCl (Hydralazine Hcl 25 Mg Tablet) [address] [facility]; Protocol Last Admin: 12/21/21 07:42 Dose: 25 mg Documented By: RICHARD Insulin Human Lispro (Insulin Lispro 100 Unit/Ml 3 Ml Vial) [address] [facility]; Protocol Last Admin: 12/21/21 07:42 Dose: 4 unit Documented By: RICHARD Magnesium Oxide (Magnesium Oxide 400 Mg Tablet) [address] [facility] Last Admin: 12/21/21 07:42 Dose: 400 mg Documented By: RICHARD Multivitamins/Vitamin C (Multivitamin Tablet) [address] [facility] Last Admin: 12/21/21 07:43 Dose: 1 tab Documented By: RICHARD Nystatin (Nystatin Powder 15 Gm Bottle) [address] [facility]; Protocol Last Admin: 12/21/21 07:44 Dose: 1 appl Documented By: RICHARD Ondansetron HCl (Ondansetron Hcl 4 Mg/2 Ml Vial) 4 mg IVPUSH Q8H PRN PRN Reason: Nausea and Vomiting Ondansetron HCl (Ondansetron Hcl 4 Mg/2 Ml Vial) 4 mg IVPUSH ONCE PRN PRN Reason: Nausea and Vomiting Pharmacy Consult (Consult Rx Perform Med Rec) 1 each MISCELLANE ONCE PRN PRN Reason: Consult order Sodium Chloride (0.9 % Sodium Chloride Flush 3 Ml Syringe) [address] [facility] Last Admin: 12/21/21 07:42 Dose: 3 ml Documented By: RICHARD Tamsulosin HCl (Tamsulosin Hcl 0.4 Mg Capsule) 0.[address] [facility] Last Admin: 12/20/21 23:32 Dose: 0.4 mg Documented By: JUAN Vitamin D (Cholecalciferol (Vitamin D3) 25 Mcg Tablet) [address] [facility] Last Admin: 12/21/21 07:43 Dose: 50 mcg Documented By: RICHARD Zinc Sulfate (Zinc Sulfate 220 Mg Capsule) [address] [facility] Last Admin: 12/21/21 07:43 Dose: 220 mg Documented By: RICHARD Labs CBC & Chem 7: 12/18/21 07:03 12/21/21 06:38 Labs: Laboratory Results - last 24 hr 12/20/21 12/20/21 12/20/21 11:29 15:56 19:35 Anion Gap Estim Creat Clear Calc Estimated GFR POC Glucose 220 H 315 H 225 H Random Glucose Calcium 12/21/21 12/21/21 06:38 07:14 Anion Gap 18 Estim Creat Clear Calc 9.2 Estimated GFR 10 POC Glucose 203 H Random Glucose 206 H Calcium 8.1 L Microbiology Microbiology Results: Microbiology 12/17/21 Unknown Urine Culture - Final Urine Other - Kidney Left Enterococcus raffinosus Lalitha albicans Assessment and Plan (1) Metabolic encephalopathy: Status: Acute (2) Acute kidney injury: Status: Acute (3) Metabolic acidosis: Status: Acute Plan 81 year-old man with CKD4, recurrent nephrolithiasis, colon CA s/p colostomy, essential HTN, DM2, and PTSD who presents today with worsening confusion with alternating lethargy and agitated delirium for the past 2 days.? Found to have ESTUARDO with serum creatinine up to 9.7 from baseline of 3, uremia with BUN of 128, and severe metabolic acidosis with serum bicarbonate of 6 and venous pH of 7.22. # ESTUARDO/CKD4 and progressing but not quite ESRD yet Had cystoscopy 12/[address] Kang with the following Post Operative Diagnosis:? bilateral hydronephrosis, acute on chronic renal failure, pyelonephritis left side Procedure:? cystoscopy, left stent removal,? left retrograde,left renal pelvis aspiration, left stent placement, right retrograde,? right stent placement -continue trending Scr, no indication for renal replacement therapy ( [facility]) #Hypokalemia---corrected, 4.3 today # severe metabolic acidosis bicab was 6 and most recent and now 34 #Mild Hypernatremia 134, encourage oral water # metabolic encephalopathy, - suspect due to uremia/ESTUARDO; may have toxic component from levofloxacin as well [he was prescribed this empirically for UTI as outpt], no longer confused, resolved # hypoMg - due to renal wasting; follow level # hx CVA - restart Aggrenox # HTN - continue carvedilol + hydralazine + amlodipine # DM2 - hold sitagliptin, give correction-dose lispro # VTE ppx: SCDs, restart heparin and closely watch for hematuria #Urine culture is now showing enteroccoccus, yeast and strep--Will discuss with ID if warrrants treatement, has chronic bain and could be contamination # code: full In my clinical judgment, the patient requires continued inpatient hosp italization for the following reasons: severe metahbolic acidosis, ESTUARDO and may need acute dialysis PT eval Quality Stroke Does the patient have a stroke diagnosis?: No VTE Prior VTE?: No VTE Risk Level:: Medical - moderate - high VTE Device Contraindication: N/A - Device Ordered VTE Drug Contraindication: N/A - Med Ordered
[2021-12-21] MEDS: Heparin Sodium,Porcine 5,000 UNIT/ML VIAL 5000 UNIT SUBCUT ×2 (11:59→22:53)
[2021-12-21 12:16] LABS: Glucose, Whole Blood 210 mg/dL (60-115)
--- NOTE | 2021-12-21 12:42 | MHC.CM.PN ---
Addendum entered by Tessie Luther 12/21/21 14:19: [facility] will eval patient [facility] bed Friday. [facility]. Original Note: IMM 12/17/21 A PT Eval was performed today. The patient qualifies for STR. STR preference is [facility]. They are following. Updated clinical has been sent to the facility. Discharge is anticipated over the weekend. The facility has been asked for a bed and to start auth.
[2021-12-21 12:56] LABS: Magnesium 1.6 mg/dL (1.6-2.6)
--- NOTE | 2021-12-21 13:11 | MHC.CLN ---
F/U DIET=DIABETIC 2000 KCALS. SUPPLEMENT ENSURE BID PROVIDES ADDITIONAL 700 KCALS, 40 PROTEIN. INTAKE PER DOC: 2 MEALS X 100%; 1 MEAL X 50%. DIET ORDER AND SUPPLEMENT APPROPRIATE. MONITOR PO INTAKE CLOSELY.
--- NOTE | 2021-12-21 14:29 | W.PM.IDCN ---
History of Present Illness Data of Consult Service Date: 12/21/21 Requesting physician: Liban Cameron Primary Care Provider: Iveth Bryant MD HPI Reason for consult: enterococcus and yeast in urine He presents with confusion and delirium. He has had Levaquin prescribed for five days and became delirious and confused. He has no elevated WBC or fever. He has CKD and chronic Carmona and had stent. Review of Systems Review of Systems: Yes all other systems are reviewed and are negative FOR[facility]LY [facility] Past Medical History Medical History (Updated 12/21/21 @ 14:34 by Veronika Kulkarni MD) Agitation Bacteriuria Cancer of kidney Chronic post-traumatic stress disorder (PTSD) Chronic UTI CKD (chronic kidney disease) stage 4, GFR 15-29 ml/min Colon cancer Colostomy in place Delirium Diabetes type 2, controlled Hematuria High cholesterol HTN (hypertension) Hydronephrosis Hydronephrosis Hydroureter Kidney stone PTSD (post-traumatic stress disorder) Pyuria Stroke Family History Family History Father Stroke Family history: reviewed and not pertinent Social History Social History Household Members: Spouse Housing: House Alcohol intake: never Patient Tobacco Use Status: Never used Tobacco Use of substances other than those prescribed or required for medical reasons: No Currently Displaying Signs/Symptoms of Drug Intoxication Withdrawal: No Have you been hit, kicked, punched, or otherwise hurt by someone within the past year? If so, by whom?: No Do you feel safe in your current relationship?: Yes Is there a partner from a previous relationship who is making you feel unsafe now?: No Are you DNR?: No Advance Directives: Yes Advance Directives on File: Yes Advance Directives Date on File: 10/15/21 Do you have thoughts of harming others: None Do you have a plan to hurt others: No Plan Recently lost weight without trying: Yes How much weight loss: 14-23 pounds Eating poorly because of decreased appetite: Yes Nutrition screen score: 5 Nutrition Risks: Dental problems and Poor intake 0-25% >4 days Poor oral hygiene: No service: Yes Current occupational status: retired Meds Allergies Allergy/AdvReac Type Severity Reaction Status Date / Time erythromycin base Allergy Severe TREMORS Verified 08/26/20 12:00 [ERYTHROMYCIN BASE] morphine [MORPHINE] Allergy Severe HALLUCINATI Verified 08/26/20 12:00 ONS oxycodone [From Percocet] AdvReac Intermediate agitation Verified 10/15/21 10:59 prochlorperazine AdvReac dystonia Verified 10/15/21 10:59 [From Compazine] Active Medications: Current Medications Acetaminophen (Acetaminophen 325 Mg Tablet) 650 mg PO Q6H PRN PRN Reason: Pain, Mild (Pain Scale 1-3) Last Admin: 12/17/21 21:57 Dose: 650 mg Acetaminophen (Acetaminophen 325 Mg Tablet) 650 mg PO ONCE PRN PRN Reason: Pain, Mild (Pain Scale 1-3) Amlodipine Besylate (Amlodipine Besylate 5 Mg Tablet) 5 mg PO BID [facility]; Protocol Last Admin: 12/21/21 07:43 Dose: 5 mg Atorvastatin Calcium (Atorvastatin Calcium 10 Mg Tablet) 10 mg PO BEDTIME [facility] Last Admin: 12/20/21 23:32 Dose: 10 mg Calcium Carbonate (Calcium Carbonate 500 Mg Tablet) 1,000 mg PO BID [facility] Last Admin: 12/21/21 07:43 Dose: 1,000 mg Carvedilol (Carvedilol 12.5 Mg Tablet) 12.5 mg PO BID [facility]; Protocol Last Admin: 12/21/21 07:42 Dose: 12.5 mg Cyanocobalamin (Cyanocobalamin (Vitamin B-12) 1,000 Mcg Tablet) 1,000 mcg PO DAILY [facility] Last Admin: 12/21/21 07:43 Dose: 1,000 mcg Dextrose (Dextrose 50 % 25 Gm/50 Ml Syringe) 25 gm IVPUSH Q15M PRN; Protocol PRN Reason: per Hypoglycemia Standing Ord. Dipyridamole/Aspirin (Aspirin/Dipyridamole Er 25/200 Cpmp.12hr) 1 cap PO BID [facility] Last Admin: 12/21/21 11:59 Dose: 1 cap Docusate Sodium (Docusate Sodium 100 Mg Capsule) 100 mg PO DAILY [facility] Last Admin: 12/21/21 07:43 Dose: 100 mg Famotidine (Famotidine 20 Mg Tablet) 20 mg PO BID [facility] Last Admin: 12/21/21 07:43 Dose: 20 mg Fentanyl (Fentanyl Citrate/Pf 100 Mcg/2 Ml Vial) 12.5 mcg IVPUSH Q5M PRN; Protocol PRN Reason: Pain, Moderate (Pain Scale 4-6 Glucose (Glucose Gel 15 Gm Gel..Gram.) 15 gm PO Q15M PRN; Protocol PRN Reason: per Hypoglycemia Standing Ord. Heparin Sodium (Porcine) (Heparin Sodium,Porcine 5,000 Unit/Ml Vial) 5,000 unit SUBCUT Q12H [facility] Last Admin: 12/21/21 11:59 Dose: 5,000 unit Hydralazine HCl (Hydralazine Hcl 25 Mg Tablet) 25 mg PO TID [facility]; Protocol Last Admin: 12/21/21 07:42 Dose: 25 mg Insulin Human Lispro (Insulin Lispro 100 Unit/Ml 3 Ml Vial) 0 unit SUBCUT QIDACHS [facility]; Protocol Last Admin: 12/21/21 11:58 Dose: 4 unit Magnesium Oxide (Magnesium Oxide 400 Mg Tablet) 400 mg PO BID [facility] Last Admin: 12/21/21 07:42 Dose: 400 mg Multivitamins/Vitamin C (Multivitamin Tablet) 1 tab PO DAILY [facility] Last Admin: 12/21/21 07:43 Dose: 1 tab Nystatin (Nystatin Powder 15 Gm Bottle) 1 appl TOPICAL BID [facility]; Protocol Last Admin: 12/21/21 07:44 Dose: 1 appl Ondansetron HCl (Ondansetron Hcl 4 Mg/2 Ml Vial) 4 mg IVPUSH Q8H PRN PRN Reason: Nausea and Vomiting Ondansetron HCl (Ondansetron Hcl 4 Mg/2 Ml Vial) 4 mg IVPUSH ONCE PRN PRN Reason: Nausea and Vomiting Pharmacy Consult (Consult Rx Perform Med Rec) 1 each MISCELLANE ONCE PRN PRN Reason: Consult order Sodium Chloride (0.9 % Sodium Chloride Flush 3 Ml Syringe) 3 ml IVFLUSH QSHIFT [facility] Last Admin: 12/21/21 07:42 Dose: 3 ml Tamsulosin HCl (Tamsulosin Hcl 0.4 Mg Capsule) 0.4 mg PO BEDTIME [facility] Last Admin: 12/20/21 23:32 Dose: 0.4 mg Vitamin D (Cholecalciferol (Vitamin D3) 25 Mcg Tablet) 50 mcg PO DAILY [facility] Last Admin: 12/21/21 07:43 Dose: 50 mcg Zinc Sulfate (Zinc Sulfate 220 Mg Capsule) 220 mg PO DAILY [facility] Last Admin: 12/21/21 07:43 Dose: 220 mg Home Medications Medication Instructions Recorded Confirmed Last Taken Type amlodipine 5 mg tablet 1 tab PO BID 08/26/20 12/16/21 10/14/21 History ascorbic acid (vitamin C) 500 mg 1,000 mg PO BID 08/26/20 12/16/21 10/14/21 History tablet (Vitamin C) aspirin 25 mg-dipyridamole 200 mg 1 cap PO BID 08/26/20 12/16/21 10/14/21 History capsule,ext.release 12 hr multiphase atorvastatin 10 mg tablet 10 mg PO BEDTIME 08/26/20 12/16/21 10/14/21 History cholecalciferol (vitamin D3) 50 50 mcg PO DAILY 08/26/20 12/16/21 10/14/21 History mcg (2,000 unit) capsule (Vitamin D3) coenzyme Q10 100 mg capsule 200 mg PO DAILY 08/26/20 12/16/21 10/14/21 History (CoQ-10) docusate sodium 100 mg capsule 100 mg PO DAILY 08/26/20 12/16/21 10/14/21 History (Colace) duloxetine 30 mg capsule,delayed 1 cap PO BEDTIME 08/26/20 12/16/21 10/14/21 History release famotidine 20 mg tablet 20 mg PO BID 08/26/20 12/16/21 10/14/21 History mecobalamin (vitamin B12) 1,000 1,000 mcg PO DAILY 08/26/20 12/16/21 10/14/21 History mcg chewable tablet (B12 Active) melatonin 5 mg capsule 10 mg PO BEDTIME PRN Insomnia 08/26/20 12/16/21 10/14/21 History multivitamin 1 tab PO DAILY 08/26/20 12/16/21 10/14/21 History potassium chloride 20 mEq 1 tab PO DAILY 10/04/21 12/16/21 10/14/21 History tablet,extended release(part/cryst) sodium bicarbonate 650 mg tablet 1 tab PO BID 10/04/21 12/16/21 10/14/21 History zinc sulfate 50 mg zinc (220 mg) 1 cap PO DAILY 10/04/21 12/16/21 10/14/21 History capsule Saccharomyces boulardii 250 mg 250 mg PO DAILY 11/20/21 12/16/21 Unknown History capsule acetaminophen 325 mg tablet 650 mg PO Q6H PRN Pain 11/20/21 12/16/21 Unknown History calcium carbonate 500 mg calcium 1,000 mg PO BID 11/20/21 12/16/21 Unknown History (1,250 mg) tablet sitagliptin 25 mg tablet 25 mg PO DAILY 11/20/21 12/16/21 Unknown History magnesium oxide 420 mg tablet 1 tab PO BID 12/16/21 12/16/21 Unknown History Physical Exam Vital Signs: Vital Signs: Last Vital Signs Temp 98.9 F 12/21/21 11:13 Pulse 71 12/21/21 11:46 Resp 20 12/21/21 11:13 BP 121/59 L 12/21/21 11:46 Pulse Ox 94 12/21/21 11:46 O2 Del Method 12/21/21 11:13 O2 Flow Rate 6 12/17/21 16:45 BMI result Body Mass Index 19.9 Psych: Other: confusion,delirium,picking at clothing Results Labs CBC & Chem 7: 12/18/21 07:03 12/21/21 06:38 Labs: BMP 12/21/21 06:38 Sodium 134 L Potassium 4.3 D Chloride 93 L Carbon Dioxide 27 BUN 67 H Creatinine 5.41 H* Calcium 8.1 L Microbiology Microbiology Results: Microbiology 12/17/21 Unknown Urine Other - Kidney Left Urine Culture - Final Enterococcus raffinosus Lalitha albicans 12/16/21 22:37 Urine clean catch - Urine cowart top Urine Culture - Final Assessment and Plan (1) Bacteriuria: Status: Acute He has bacteria and fungus in urine, enterococcus raffinosus and yeast He is likely colonized. There are no signs of pyelonephritis and no WBC or fever. Plan No antibiotics at this time
[2021-12-21 16:45] LABS: Glucose, Whole Blood 207 mg/dL (60-115)
[2021-12-21 20:25] LABS: Glucose, Whole Blood 227 mg/dL (60-115)
[2021-12-21] MEDS: Tamsulosin HCL 0.4 MG CAPSULE PO (22:51)
[2021-12-21] MEDS: Atorvastatin Calcium 10 MG TABLET PO (22:52)
[2021-12-22] MEDS: 0.9 % Sodium Chloride Flush 3 ML SYRINGE IVFLUSH ×3 (00:52→16:31)
[2021-12-22 03:24] VITALS: BP 148/69; PULSE 78; RESP 18; TEMP 36.3; O2SAT 96
[2021-12-22 07:26] LABS: Anion Gap 19 (12-20); Blood Urea Nitrogen 72 mg/dL (9-16); Carbon Dioxide 26 mmol/L (22-29); Chloride 94 mmol/L (96-108); Creatinine Clr Calc Pharmacy 9.1; Estimated Glomerular Filt Rate 10; Glucose Random 134 mg/dL (60-115); Potassium 4.2 mmol/L (3.3-5.1); Sodium 135 mmol/L (135-145)
[2021-12-22 08:00] VITALS: BP 136/70; PULSE 86; RESP 19; TEMP 36.1; O2SAT 98
[2021-12-22 08:01] LABS: Glucose, Whole Blood 144 mg/dL (60-115)
--- NOTE | 2021-12-22 09:15 | HO.PM.IMPN ---
Subjective Subjective Date of Service: 12/22/21 Interval History: Seen in f/u for acute on chronic lashae failure, hydroneprhosis, uremia No new issues, Cr trending stable Review of Systems no complaint Physical Exam Vital Signs: Vital Signs: Last Vital Signs Temp 97.0 F 12/22/21 08:00 Pulse 86 12/22/21 08:00 Resp 19 12/22/21 08:00 BP 136/70 12/22/21 08:00 Pulse Ox 98 12/22/21 08:00 O2 Del Method 12/22/21 08:00 O2 Flow Rate 6 12/17/21 16:45 BMI result Body Mass Index 19.9 Const: Other: Gen: ill appearing, alert and more coherent HEENT: sclera anicteric, moist mucus membranes Neck: supple Lungs: clear to auscultation bilaterally Heart: regular rate and rhythm, no murmurs Abd: soft, non-tender, non-distended, colostomy in place draining liquid brown stool Ext: no edema Skin: warm/well-perfused Neuro: somnolent, awakens only briefly Psych: impaired insight Objective Data Active Medications Acetaminophen (Acetaminophen 325 Mg Tablet) 650 mg PO Q6H PRN PRN Reason: Pain, Mild (Pain Scale 1-3) Last Admin: 12/17/21 21:57 Dose: 650 mg Documented By: ANASTACIA Acetaminophen (Acetaminophen 325 Mg Tablet) 650 mg PO ONCE PRN PRN Reason: Pain, Mild (Pain Scale 1-3) Amlodipine Besylate (Amlodipine Besylate 5 Mg Tablet) 5 mg PO BID [facility]; Protocol Last Admin: 12/21/21 22:52 Dose: 5 mg Documented By: ANASTACIA Atorvastatin Calcium (Atorvastatin Calcium 10 Mg Tablet) 10 mg PO BEDTIME [facility] Last Admin: 12/21/21 22:52 Dose: 10 mg Documented By: ANASTACIA Calcium Carbonate (Calcium Carbonate 500 Mg Tablet) 1,000 mg PO BID [facility] Last Admin: 12/21/21 22:52 Dose: 1,000 mg Documented By: ANASTACIA Carvedilol (Carvedilol 12.5 Mg Tablet) 12.5 mg PO BID [facility]; Protocol Last Admin: 12/21/21 22:51 Dose: 12.5 mg Documented By: ANASTACIA Cyanocobalamin (Cyanocobalamin (Vitamin B-12) 1,000 Mcg Tablet) 1,000 mcg PO DAILY [facility] Last Admin: 12/21/21 07:43 Dose: 1,000 mcg Documented By: RICHARD Dextrose (Dextrose 50 % 25 Gm/50 Ml Syringe) 25 gm IVPUSH Q15M PRN; Protocol PRN Reason: per Hypoglycemia Standing Ord. Dipyridamole/Aspirin (Aspirin/Dipyridamole Er 25/200 Cpmp.12hr) 1 cap PO BID [facility] Last Admin: 12/21/21 22:52 Dose: 1 cap Documented By: ANASTACIA Docusate Sodium (Docusate Sodium 100 Mg Capsule) 100 mg PO DAILY [facility] Last Admin: 12/21/21 07:43 Dose: 100 mg Documented By: RICHARD Famotidine (Famotidine 20 Mg Tablet) 20 mg PO BID [facility] Last Admin: 12/21/21 22:51 Dose: 20 mg Documented By: ANASTACIA Fentanyl (Fentanyl Citrate/Pf 100 Mcg/2 Ml Vial) 12.5 mcg IVPUSH Q5M PRN; Protocol PRN Reason: Pain, Moderate (Pain Scale 4-6 Glucose (Glucose Gel 15 Gm Gel..Gram.) 15 gm PO Q15M PRN; Protocol PRN Reason: per Hypoglycemia Standing Ord. Heparin Sodium (Porcine) (Heparin Sodium,Porcine 5,000 Unit/Ml Vial) 5,000 unit SUBCUT Q12H [facility] Last Admin: 12/21/21 22:53 Dose: 5,000 unit Documented By: ANASTACIA Hydralazine HCl (Hydralazine Hcl 25 Mg Tablet) 25 mg PO TID [facility]; Protocol Last Admin: 12/21/21 22:51 Dose: 25 mg Documented By: ANASTACIA Insulin Human Lispro (Insulin Lispro 100 Unit/Ml 3 Ml Vial) 0 unit SUBCUT QIDACHS [facility]; Protocol Last Admin: 12/22/21 08:32 Dose: Not Given Documented By: PRAVEEN Non-Admin Reason: No Insulin Coverage Magnesium Oxide (Magnesium Oxide 400 Mg Tablet) 400 mg PO BID [facility] Last Admin: 12/21/21 22:51 Dose: 400 mg Documented By: ANASTACIA Multivitamins/Vitamin C (Multivitamin Tablet) 1 tab PO DAILY [facility] Last Admin: 12/21/21 07:43 Dose: 1 tab Documented By: RICHARD Nystatin (Nystatin Powder 15 Gm Bottle) 1 appl TOPICAL BID [facility]; Protocol Last Admin: 12/21/21 22:52 Dose: 1 appl Documented By: ANASTACIA Ondansetron HCl (Ondansetron Hcl 4 Mg/2 Ml Vial) 4 mg IVPUSH Q8H PRN PRN Reason: Nausea and Vomiting Ondansetron HCl (Ondansetron Hcl 4 Mg/2 Ml Vial) 4 mg IVPUSH ONCE PRN PRN Reason: Nausea and Vomiting Pharmacy Consult (Consult Rx Perform Med Rec) 1 each MISCELLANE ONCE PRN PRN Reason: Consult order Sodium Chloride (0.9 % Sodium Chloride Flush 3 Ml Syringe) 3 ml IVFLUSH QSHIFT [facility] Last Admin: 12/22/21 00:52 Dose: 3 ml Documented By: ANASTACIA Tamsulosin HCl (Tamsulosin Hcl 0.4 Mg Capsule) 0.4 mg PO BEDTIME [facility] Last Admin: 12/21/21 22:51 Dose: 0.4 mg Documented By: ANASTACIA Vitamin D (Cholecalciferol (Vitamin D3) 25 Mcg Tablet) 50 mcg PO DAILY [facility] Last Admin: 12/21/21 07:43 Dose: 50 mcg Documented By: RICHARD Zinc Sulfate (Zinc Sulfate 220 Mg Capsule) 220 mg PO DAILY [facility] Last Admin: 12/21/21 07:43 Dose: 220 mg Documented By: RICHARD Labs CBC & Chem 7: 12/18/21 07:03 12/22/21 06:05 Labs: Laboratory Results - last 24 hr 12/21/21 12/21/21 12/21/21 06:38 11:14 16:31 Anion Gap Estim Creat Clear Calc Estimated GFR POC Glucose 210 H 207 H Random Glucose Calcium Magnesium 1.6 12/21/21 12/22/21 12/22/21 20:07 06:05 07:57 Anion Gap 19 Estim Creat Clear Calc 9.1 Estimated GFR 10 POC Glucose 227 H 144 H Random Glucose 134 H Calcium 8.0 L Magnesium Microbiology Microbiology Results: Microbiology 12/17/21 Unknown Urine Culture - Final Urine Other - Kidney Left Enterococcus raffinosus Lalitha albicans Assessment and Plan (1) Metabolic encephalopathy: Status: Acute (2) Acute kidney injury: Status: Acute (3) Metabolic acidosis: Status: Acute Plan 81 year-old man with CKD4, recurrent nephrolithiasis, colon CA s/p colostomy, essential HTN, DM2, and PTSD who presents today with worsening confusion with alternating lethargy and agitated delirium for the past 2 days.? Found to have ESTUARDO with serum creatinine up to 9.7 from baseline of 3, uremia with BUN of 128, and severe metabolic acidosis with serum bicarbonate of 6 and venous pH of 7.22. # ESTUARDO/CKD4 and progressing but not quite ESRD yet Had cystoscopy 12/[address] Kang with the following Post Operative Diagnosis:? bilateral hydronephrosis, acute on chronic renal failure, pyelonephritis left side Procedure:? cystoscopy, left stent removal,? left retrograde,left renal pelvis aspiration, left stent placement, right retrograde,? right stent placement -continue trending Scr, no indication for renal replacement therapy ( [employer]) #Hypokalemia---corrected, 4.2 today # severe metabolic acidosis bicab was 6 and most recent and now 34 #Mild Hypernatremia --resolved 135, # metabolic encephalopathy, - suspect due to uremia/ESTUARDO; may have toxic component from levofloxacin as well [he was prescribed this empirically for UTI as outpt], no longer confused, resolved # hypoMg - due to renal wasting; follow level # hx CVA - restart Aggrenox # HTN - continue carvedilol + hydralazine + amlodipine # DM2 - hold sitagliptin, give correction-dose lispro # VTE ppx: SCDs, restart heparin and closely watch for hematuria #Urine culture is now showing enteroccoccus, yeast and strep--Will discuss with ID if warrrants treatement, has chronic bain and could be contamination # code: full In my clinical judgment, the patient requires continued inpatient hospitalization for the following reasons: severe metahbolic acidosis, ESTUARDO and may need acute dialysis PT eval Quality Stroke Does the patient have a stroke diagnosis?: No VTE Prior VTE?: No VTE Risk Level:: Medical - moderate - high VTE Device Contraindication: N/A - Device Ordered VTE Drug Contraindication: N/A - Med Ordered
[2021-12-22 09:39] LABS: Magnesium 1.5 mg/dL (1.6-2.6)
[2021-12-22] MEDS: Cholecalciferol (Vitamin D3) 25 MCG TABLET 50 MCG PO (10:24)
[2021-12-22] MEDS: Famotidine 20 MG TABLET PO ×2 (10:25→21:21)
[2021-12-22] MEDS: Multivitamin TABLET 1 TAB PO (10:25)
[2021-12-22] MEDS: Docusate Sodium 100 MG CAPSULE PO (10:25)
[2021-12-22] MEDS: Heparin Sodium,Porcine 5,000 UNIT/ML VIAL 5000 UNIT SUBCUT (10:26)
[2021-12-22] MEDS: Cyanocobalamin (Vitamin B-12) 1,000 MCG TABLET 1000 MCG PO (10:26)
[2021-12-22] MEDS: Zinc Sulfate 220 MG CAPSULE PO (10:26)
[2021-12-22] MEDS: hydrALAZINE HCl 25 MG TABLET PO ×3 (10:26→21:20)
[2021-12-22] MEDS: amLODIPine Besylate 5 MG TABLET PO ×2 (10:26→21:21)
[2021-12-22] MEDS: carvediloL 12.5 MG TABLET PO ×2 (10:26→21:21)
[2021-12-22] MEDS: Magnesium Oxide 400 MG TABLET PO ×2 (10:26→21:20)
[2021-12-22] MEDS: Nystatin Powder 15 GM BOTTLE 1 APPL TOPICAL (10:54)
[2021-12-22 11:39] LABS: Glucose, Whole Blood 181 mg/dL (60-115)
[2021-12-22] MEDS: Insulin Lispro 100 UNIT/ML 3 ML VIAL SUBCUT ×3 (11:55→21:20)
[2021-12-22 12:00] VITALS: BP 152/67; PULSE 69; RESP 19; TEMP 36.4; O2SAT 95
--- NOTE | 2021-12-22 14:30 | P.PNNP_ITS ---
Subjective Subjective Date of Service: 12/22/21 Interval history: All recent data reviewed. No new issues Physical Exam Vital Signs: Vital Signs: Last Vital Signs Temp 97.6 F 12/22/21 12:00 Pulse 69 12/22/21 12:00 Resp 19 12/22/21 12:00 BP 152/67 H 12/22/21 12:00 Pulse Ox 95 12/22/21 12:00 O2 Del Method 12/22/21 12:00 O2 Flow Rate 6 12/17/21 16:45 BMI result Body Mass Index 19.9 Const: General: no acute distress Eyes: EOM: EOMs intact bilaterally Neck: Neck: Yes supple Resp: Auscultation: diminished lung sounds Cardio: Rate: regular rate GI: Palpation (GI): Soft to palpation Neuro: General: moves all extremities Objective Data Labs CBC & Chem 7: 12/18/21 07:03 12/22/21 06:05 Labs: Laboratory Results - last 24 hr 12/21/21 12/21/21 12/22/21 16:31 20:07 06:05 Sodium 135 Potassium 4.2 Chloride 94 L Carbon Dioxide 26 Anion Gap 19 BUN 72 H Creatinine 5.43 H* Estim Creat Clear Calc 9.1 Estimated GFR 10 POC Glucose 207 H 227 H Random Glucose 134 H Calcium 8.0 L Magnesium 1.5 L 12/22/21 12/22/21 07:57 11:27 Sodium Potassium Chloride Carbon Dioxide Anion Gap BUN Creatinine Estim Creat Clear Calc Estimated GFR POC Glucose 144 H 181 H Random Glucose Calcium Magnesium Microbiology Microbiology Results: Microbiology 12/17/21 Unknown Urine Other - Kidney Left Urine Culture - Final Enterococcus raffinosus Lalitha albicans 12/16/21 22:37 Urine clean catch - Urine cowart top Urine Culture - Final Procedures Date of Service Date of Service: 12/22/21 Assessment & Plan Assessment and plan (1) Acute kidney injury: Status: Acute Assessment and Plan: Mr. 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 ESTUARDO on CKD in the setting of profound hypovolemia & hydronephrosis refractory to left stent Has GI losses from ostomy; S/P stent change; D/Breezy? D5W with K ; Renal function improved/stable; No dialysis needed now; C/W supportive care Patient's expressed concern that Mr. Mireles outpatient team is not able to adequately follow his progressive renal failure She expressed wishes to transfer care to [facility] through [facility]. She had notified? his old outpatient renal team Time Spent With Patient Time: Total time spent is greater than 50% in coordination of care (as documented) at patient's floor/unit and/or counseling patient: Progress Note: Quality Stroke Does the patient have a stroke diagnosis?: No
[2021-12-22 15:28] LABS: Glucose, Whole Blood 197 mg/dL (60-115)
[2021-12-22 16:00] VITALS: BP 123/59; PULSE 72; RESP 18; TEMP 36.5; O2SAT 94
[2021-12-22 19:26] VITALS: BP 132/63; PULSE 74; RESP 18; TEMP 36.6; O2SAT 96
[2021-12-22] MEDS: Tamsulosin HCL 0.4 MG CAPSULE PO (21:21)
[2021-12-22] MEDS: Atorvastatin Calcium 10 MG TABLET PO (21:21)
[2021-12-22 21:26] LABS: Glucose, Whole Blood 214 mg/dL (60-115)
[2021-12-22 23:34] VITALS: BP 113/56; PULSE 75; RESP 20; TEMP 36.1; O2SAT 97
[2021-12-23] MEDS: Nystatin Powder 15 GM BOTTLE 1 APPL TOPICAL ×3 (01:00→22:11)
[2021-12-23] MEDS: Heparin Sodium,Porcine 5,000 UNIT/ML VIAL 5000 UNIT SUBCUT ×3 (01:01→22:10)
[2021-12-23] MEDS: 0.9 % Sodium Chloride Flush 3 ML SYRINGE IVFLUSH ×2 (01:03→22:11)
[2021-12-23 03:00] VITALS: BP 125/57; PULSE 81; RESP 20; TEMP 36.3; O2SAT 96
[2021-12-23 07:31] LABS: Glucose, Whole Blood 133 mg/dL (60-115)
[2021-12-23 08:00] VITALS: BP 131/59; PULSE 80; RESP 19; TEMP 36.2; O2SAT 97
[2021-12-23] MEDS: carvediloL 12.5 MG TABLET PO ×2 (09:48→22:10)
[2021-12-23] MEDS: Multivitamin TABLET 1 TAB PO (09:48)
[2021-12-23] MEDS: Cholecalciferol (Vitamin D3) 25 MCG TABLET 50 MCG PO (09:48)
[2021-12-23] MEDS: Docusate Sodium 100 MG CAPSULE PO (09:48)
[2021-12-23] MEDS: Magnesium Oxide 400 MG TABLET PO ×2 (09:48→22:10)
[2021-12-23] MEDS: hydrALAZINE HCl 25 MG TABLET PO ×3 (09:48→22:10)
[2021-12-23] MEDS: Cyanocobalamin (Vitamin B-12) 1,000 MCG TABLET 1000 MCG PO (09:48)
[2021-12-23] MEDS: amLODIPine Besylate 5 MG TABLET PO ×2 (09:48→22:09)
[2021-12-23] MEDS: Zinc Sulfate 220 MG CAPSULE PO (09:48)
[2021-12-23] MEDS: Famotidine 20 MG TABLET PO ×2 (09:48→22:10)
--- NOTE | 2021-12-23 10:43 | HO.PM.IMPN ---
Subjective Subjective Date of Service: 01/02/22 Interval History: seen/examined, no new issues, Review of Systems no fever no new confusion Physical Exam Vital Signs: Vital Signs: Last Vital Signs Temp 97.2 F 12/23/21 08:00 Pulse 80 12/23/21 08:00 Resp 19 12/23/21 08:00 BP 131/59 L 12/23/21 08:00 Pulse Ox 97 12/23/21 08:00 O2 Del Method 12/23/21 08:00 O2 Flow Rate 6 12/17/21 16:45 BMI result Body Mass Index 19.9 Const: Other: Gen: ill appearing, alert and more coherent HEENT: sclera anicteric, moist mucus membranes Neck: supple Lungs: clear to auscultation bilaterally Heart: regular rate and rhythm, no murmurs Abd: soft, non-tender, non-distended, colostomy in place draining liquid brown stool Ext: no edema Skin: warm/well-perfused Neuro: somnolent, awakens only briefly Psych: impaired insight Objective Data Active Medications Acetaminophen (Acetaminophen 325 Mg Tablet) 650 mg PO Q6H PRN PRN Reason: Pain, Mild (Pain Scale 1-3) Last Admin: 12/17/21 21:57 Dose: 650 mg Documented By: ANASTACIA Acetaminophen (Acetaminophen 325 Mg Tablet) 650 mg PO ONCE PRN PRN Reason: Pain, Mild (Pain Scale 1-3) Amlodipine Besylate (Amlodipine Besylate 5 Mg Tablet) 5 mg PO BID [facility]; Protocol Last Admin: 12/23/21 09:48 Dose: 5 mg Documented By: UCHE Atorvastatin Calcium (Atorvastatin Calcium 10 Mg Tablet) 10 mg PO BEDTIME [facility] Last Admin: 12/22/21 21:21 Dose: 10 mg Documented By: ANASTACIA Calcium Carbonate (Calcium Carbonate 500 Mg Tablet) 1,000 mg PO BID [facility] Last Admin: 12/23/21 09:48 Dose: 1,000 mg Documented By: UCHE Carvedilol (Carvedilol 12.5 Mg Tablet) 12.5 mg PO BID [facility]; Protocol Last Admin: 12/23/21 09:48 Dose: 12.5 mg Documented By: UCHE Cyanocobalamin (Cyanocobalamin (Vitamin B-12) 1,000 Mcg Tablet) 1,000 mcg PO DAILY [facility] Last Admin: 12/23/21 09:48 Dose: 1,000 mcg Documented By: UCHE Dextrose (Dextrose 50 % 25 Gm/50 Ml Syringe) 25 gm IVPUSH Q15M PRN; Protocol PRN Reason: per Hypoglycemia Standing Ord. Dipyridamole/Aspirin (Aspirin/Dipyridamole Er 25/200 Cpmp.12hr) 1 cap PO BID [facility] Last Admin: 12/23/21 09:48 Dose: 1 cap Documented By: UCHE Docusate Sodium (Docusate Sodium 100 Mg Capsule) 100 mg PO DAILY [facility] Last Admin: 12/23/21 09:48 Dose: 100 mg Documented By: UCHE Famotidine (Famotidine 20 Mg Tablet) 20 mg PO BID [facility] Last Admin: 12/23/21 09:48 Dose: 20 mg Documented By: UCHE Glucose (Glucose Gel 15 Gm Gel..Gram.) 15 gm PO Q15M PRN; Protocol PRN Reason: per Hypoglycemia Standing Ord. Heparin Sodium (Porcine) (Heparin Sodium,Porcine 5,000 Unit/Ml Vial) 5,000 unit SUBCUT Q12H [facility] Last Admin: 12/23/21 01:01 Dose: 5,000 unit Documented By: ANASTACIA Hydralazine HCl (Hydralazine Hcl 25 Mg Tablet) 25 mg PO TID [facility]; Protocol Last Admin: 12/23/21 09:48 Dose: 25 mg Documented By: UCHE Insulin Human Lispro (Insulin Lispro 100 Unit/Ml 3 Ml Vial) 0 unit SUBCUT QIDACHS [facility]; Protocol Last Admin: 12/23/21 07:27 Dose: Not Given Documented By: UCHE Non-Admin Reason: See Note Magnesium Oxide (Magnesium Oxide 400 Mg Tablet) 400 mg PO BID [facility] Last Admin: 12/23/21 09:48 Dose: 400 mg Documented By: UCHE Melatonin (Melatonin 3 Mg Tablet) 6 mg PO BEDTIME PRN PRN Reason: insomnia Multivitamins/Vitamin C (Multivitamin Tablet) 1 tab PO DAILY [facility] Last Admin: 12/23/21 09:48 Dose: 1 tab Documented By: UCHE Nystatin (Nystatin Powder 15 Gm Bottle) 1 appl TOPICAL BID [facility]; Protocol Last Admin: 12/23/21 09:48 Dose: 1 appl Documented By: UCHE Ondansetron HCl (Ondansetron Hcl 4 Mg/2 Ml Vial) 4 mg IVPUSH Q8H PRN PRN Reason: Nausea and Vomiting Ondansetron HCl (Ondansetron Hcl 4 Mg/2 Ml Vial) 4 mg IVPUSH ONCE PRN PRN Reason: Nausea and Vomiting Pharmacy Consult (Consult Rx Perform Med Rec) 1 each MISCELLANE ONCE PRN PRN Reason: Consult order Sodium Chloride (0.9 % Sodium Chloride Flush 3 Ml Syringe) 3 ml IVFLUSH QSHIFT [facility] Last Admin: 12/23/21 07:12 Dose: Not Given Documented By: UCHE Non-Admin Reason: See Note Tamsulosin HCl (Tamsulosin Hcl 0.4 Mg Capsule) 0.4 mg PO BEDTIME [facility] Last Admin: 12/22/21 21:21 Dose: 0.4 mg Documented By: ANASTACIA Vitamin D (Cholecalciferol (Vitamin D3) 25 Mcg Tablet) 50 mcg PO DAILY [facility] Last Admin: 12/23/21 09:48 Dose: 50 mcg Documented By: UCHE Zinc Sulfate (Zinc Sulfate 220 Mg Capsule) 220 mg PO DAILY [facility] Last Admin: 12/23/21 09:48 Dose: 220 mg Documented By: UCHE Labs CBC & Chem 7: 01/01/22 09:02 01/02/22 05:44 Labs: Laboratory Results - last 24 hr 12/22/21 12/22/21 12/22/21 11:27 15:17 21:11 POC Glucose 181 H 197 H 214 H 12/23/21 07:25 POC Glucose 133 H Assessment and Plan (1) Metabolic encephalopathy: Status: Acute (2) Acute kidney injury: Status: Acute (3) Metabolic acidosis: Status: Acute Plan 81 year-old man with CKD4, recurrent nephrolithiasis, colon CA s/p colostomy, essential HTN, DM2, and PTSD who presents today with worsening confusion with alternating lethargy and agitated delirium for the past 2 days.? Found to have ESTUARDO with serum creatinine up to 9.7 from baseline of 3, uremia with BUN of 128, and severe metabolic acidosis with serum bicarbonate of 6 and venous pH of 7.22. # ESTUARDO/CKD4 and progressing but not quite ESRD yet Had cystoscopy 12/[address] Kang with the following Post Operative Diagnosis:? bilateral hydronephrosis, acute on chronic renal failure, pyelonephritis left side Procedure:? cystoscopy, left stent removal,? left retrograde,left renal pelvis aspiration, left stent placement, right retrograde,? 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 SPECIALIST) #HypOkalemia---corrected, 4.2 12/22 # severe metabolic acidosis bicab was 6 and most recent and now 34 #Mild Hypernatremia --resolved 135, # metabolic encephalopathy, - suspect due to uremia/ESTUARDO; may have toxic component from levofloxacin as well [he was prescribed this empirically for UTI as outpt], no longer confused, resolved # hypoMg - due to renal wasting; follow level # hx CVA - restart Aggrenox # HTN - continue carvedilol + hydralazine + amlodipine # DM2 - hold sitagliptin, give correction-dose lispro # VTE ppx: SCDs, restart heparin and closely watch for hematuria #Urine culture is now showing enteroccoccus, yeast and strep--Will discuss with ID if warrrants treatement, has chronic bain and could be contamination # code: full In my clinical judgment, the patient requires continued inpatient hospitalization for the following reasons: severe metahbolic acidosis, ESTUARDO and may need acute dialysis PT recommends STR and I concur Quality Stroke Does the patient have a stroke diagnosis?: No VTE Prior VTE?: No VTE Risk Level:: Medical - moderate - high VTE Device Contraindication: N/A - Device Ordered VTE Drug Contraindication: N/A - Med Ordered
[2021-12-23 11:58] LABS: Glucose, Whole Blood 191 mg/dL (60-115)
[2021-12-23 12:00] VITALS: BP 139/66; PULSE 74; RESP 20; TEMP 36.4; O2SAT 96
[2021-12-23] MEDS: Insulin Lispro 100 UNIT/ML 3 ML VIAL SUBCUT ×3 (12:06→22:10)
--- NOTE | 2021-12-23 14:36 | P.PNNP_ITS ---
Subjective Subjective Date of Service: 12/23/21 Interval history: All recent data reviewed Physical Exam Vital Signs: Vital Signs: Last Vital Signs Temp 97.5 F 12/23/21 12:00 Pulse 74 12/23/21 12:00 Resp 20 12/23/21 12:00 BP 139/66 12/23/21 12:00 Pulse Ox 96 12/23/21 12:00 O2 Del Method 12/23/21 12:00 O2 Flow Rate 6 12/17/21 16:45 BMI result Body Mass Index 19.9 Const: General: no acute distress Neck: Neck: Yes supple Resp: Auscultation: diminished lung sounds Cardio: Rate: regular rate GI: Palpation (GI): Soft to palpation Skin: General skin exam: no rashes or lesions noted Neuro: General: moves all extremities Objective Data Labs CBC & Chem 7: 12/18/21 07:03 12/22/21 06:05 Labs: Laboratory Results - last 24 hr 12/22/21 12/22/21 12/23/21 15:17 21:11 07:25 POC Glucose 197 H 214 H 133 H 12/23/21 11:21 POC Glucose 191 H Microbiology Microbiology Results: Microbiology 12/17/21 Unknown Urine Other - Kidney Left Urine Culture - Final Enterococcus raffinosus Lalitha albicans 12/16/21 22:37 Urine clean catch - Urine cowart top Urine Culture - Final Procedures Date of Service Date of Service: 12/23/21 Assessment & Plan Assessment and plan (1) Acute kidney injury: Status: Acute Assessment and Plan: Mr. 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 ESTUARDO on CKD in the setting of profound hypovolemia & hydronephrosis refractory to left stent Has GI losses from ostomy; S/P stent change; D/Breezy? D5W with K ; Renal function improved/stable; No dialysis needed now; Labs AM; C/W supportive care (Patient's expressed concern that Mr. Mireles outpatient team is not able to adequately follow his progressive renal failure She expressed wishes to transfer care to [facility] through [place]. She had notified? his old outpatient renal team) Time Spent With Patient Time: Total time spent is greater than 50% in coordination of care (as documented) at patient's floor/unit and/or counseling patient: Progress Note: Quality Stroke Does the patient have a stroke diagnosis?: No
--- NOTE | 2021-12-23 15:40 | PM.UROPN ---
Subjective Subjective Date of Service: 12/23/21 Interval history: 80-year-old male Prior history of progressive chronic renal disease baseline creatinine 2.1 secondary to multiple episodes of obstructive nephropathy and recurrent stones with colon cancer therapy. Colectomy with chronic metabolic acidosis and stoma. Recurrent urosepsis. Initial presentation with ESTUARDO on CKD and persistent hydronephrosis Left stent exchanged and right stent placed with Carmona catheter 12/17 Creatinine continues to improve Now down to 5.4 Care notes per nephrology If does not continue to improve may benefit from left PCN placement Continued Abx for pyelonephritis fungal Physical Exam Vital Signs: Vital Signs: Last Vital Signs Temp 97.5 F 12/23/21 12:00 Pulse 74 12/23/21 12:00 Resp 20 12/23/21 12:00 BP 139/66 12/23/21 12:00 Pulse Ox 96 12/23/21 12:00 O2 Del Method 12/23/21 12:00 O2 Flow Rate 6 12/17/21 16:45 BMI result Body Mass Index 19.9 Const: General: cooperative, healthy appearing, comfortable and no acute distress Orientation/consciousness: patient oriented x3 HEENT: Face and sinus: Yes normal facial exam Mouth: moist mucous membranes Neck: Neck: Yes normal visual inspection, Yes full ROM and Yes trachea midline Chest: Chest palpation & inspection: normal inspection of the chest Resp: Effort & Inspection: normal respiratory effort, able to speak in complete sentences and no respiratory distress GI: Inspection: Yes normal to inspection Back/Spine/Pelvis: Cervical Spine: normal cervical lordosis Thoracic/Lumbar Spine: thoracic and lumbar spine normal to inspection Skin: General skin exam: no rashes or lesions noted Neuro: General: patient oriented x3, tone normal and moves all extremities Extrem: General: Yes normal to inspection and Yes capillary refill normal Urology Results Labs CBC & Chem 7: 12/18/21 07:03 12/22/21 06:05 Labs: Laboratory Results - last 24 hr 12/22/21 12/23/21 12/23/21 21:11 07:25 11:21 POC Glucose 214 H 133 H 191 H Progress Note: A&P Assessment and plan (1) Pyelonephritis: Status: Acute (2) Acute kidney injury: Status: Acute Plan ESTUARDO on CKD Time Spent With Patient Time: Total time spent is greater than 50% in coordination of care (as documented) at patient's floor/unit and/or counseling patient: Progress Note: Quality Stroke Does the patient have a stroke diagnosis?: No
[2021-12-23 15:41] VITALS: BP 150/70; PULSE 76; RESP 17; TEMP 36.6; O2SAT 97
[2021-12-23 16:18] LABS: Glucose, Whole Blood 234 mg/dL (60-115)
--- NOTE | 2021-12-23 18:22 | PC.NURSE ---
Pt's at bedside assisting with care. pt was able to get out of bed with 1 assist, limited to standing with walker and side stepping while bed was behind patient. pt was very tremulous and weak during this activity. pt was unable to keep his legs straight at times and had to take a break, also c/o feeling dizzy w/ positional change.
[2021-12-23 20:00] VITALS: BP 148/69; PULSE 75; RESP 17; TEMP 37.1; O2SAT 99
[2021-12-23 21:16] LABS: Glucose, Whole Blood 200 mg/dL (60-115)
[2021-12-23] MEDS: Atorvastatin Calcium 10 MG TABLET PO (22:09)
[2021-12-23] MEDS: Tamsulosin HCL 0.4 MG CAPSULE PO (22:10)
[2021-12-23 23:52] VITALS: BP 143/74; PULSE 86; RESP 18; TEMP 37.3; O2SAT 97
[2021-12-24 03:42] VITALS: BP 138/63; PULSE 82; RESP 14; TEMP 36.9; O2SAT 95
[2021-12-24 06:24] LABS: Hematocrit 24.7 % (42.0-52.0); Hemoglobin 7.9 g/dl (14.0-18.0); Mean Corpuscular Hemoglobin 27.1 pg (27.0-33.0); Mean Corpuscular Volume 84.9 fL (80.0-98.0); Mean Platelet Volume 11.1 fL (9.4-12.4); Platelet Count 180 X10*3/uL (160-400); Red Blood Count 2.91 X10*6/uL (4.60-5.80); White Blood Count 9.4 X10*3/uL (4.8-10.8)
[2021-12-24 07:12] VITALS: BP 149/71; PULSE 73; RESP 12; TEMP 36.7; O2SAT 96
[2021-12-24 07:14] LABS: Blood Urea Nitrogen 76 mg/dL (9-16); Calcium 7.9 mg/dL (8.4-10.2); Creatinine Clr Calc Pharmacy 8.7; Estimated Glomerular Filt Rate 10; Glucose Random 202 mg/dL (60-115)
[2021-12-24 07:37] LABS: Glucose, Whole Blood 164 mg/dL (60-115)
[2021-12-24 08:04] LABS: Anion Gap 24 (12-20); Carbon Dioxide 16 mmol/L (22-29); Chloride 104 mmol/L (96-108); Potassium 5.1 mmol/L (3.3-5.1); Sodium 139 mmol/L (135-145)
[2021-12-24] MEDS: Docusate Sodium 100 MG CAPSULE PO (08:47)
[2021-12-24] MEDS: Cholecalciferol (Vitamin D3) 25 MCG TABLET 50 MCG PO (08:47)
[2021-12-24] MEDS: Insulin Lispro 100 UNIT/ML 3 ML VIAL SUBCUT ×4 (08:47→21:54)
[2021-12-24] MEDS: hydrALAZINE HCl 25 MG TABLET PO ×3 (08:47→21:54)
[2021-12-24] MEDS: Famotidine 20 MG TABLET PO ×2 (08:47→21:53)
[2021-12-24] MEDS: Zinc Sulfate 220 MG CAPSULE PO (08:48)
[2021-12-24] MEDS: amLODIPine Besylate 5 MG TABLET PO ×2 (08:48→21:53)
[2021-12-24] MEDS: Cyanocobalamin (Vitamin B-12) 1,000 MCG TABLET 1000 MCG PO (08:48)
[2021-12-24] MEDS: Multivitamin TABLET 1 TAB PO (08:48)
[2021-12-24] MEDS: carvediloL 12.5 MG TABLET PO ×2 (08:48→21:53)
[2021-12-24] MEDS: 0.9 % Sodium Chloride Flush 3 ML SYRINGE IVFLUSH ×2 (08:48→14:51)
[2021-12-24] MEDS: Magnesium Oxide 400 MG TABLET PO ×2 (08:49→21:53)
[2021-12-24 09:08] LABS: Ferritin 245 ng/mL (20-250); Iron 29 mcg/dL (45-160); Lactate Dehydrogenase 213 U/L (118-273); Magnesium 1.9 mg/dL (1.6-2.6); Percent Iron Saturation 16 % (15-50); Total Iron Binding Capacity 180 mcg/dL (228-428); Unsaturated Iron Binding 151 ug/dL
[2021-12-24] MEDS: Nystatin Powder 15 GM BOTTLE 1 APPL TOPICAL ×2 (09:43→21:54)
--- NOTE | 2021-12-24 10:13 | P.PNNP_ITS ---
Subjective Subjective Date of Service: 12/24/21 Interval history: Seen and exmained, events noted Physical Exam Vital Signs: Vital Signs: Last Vital Signs Temp 98.0 F 12/24/21 07:12 Pulse 73 12/24/21 07:12 Resp 12 12/24/21 07:12 BP 149/71 H 12/24/21 07:12 Pulse Ox 96 12/24/21 07:12 O2 Del Method 12/24/21 07:12 O2 Flow Rate 6 12/17/21 16:45 BMI result Body Mass Index 19.9 Const: Other: Obtunded. General: comfortable and no acute distress Orientation/consciousness: patient oriented x3 HEENT: Other: Very dry mucous membranes Eyes: Other: No scleral icterus. EOM: EOMs intact bilaterally Neck: Neck: Yes supple Resp: Other: Tachypneic. CTAB otherwise Auscultation: diminished lung sounds Cardio: Jugular venous distension: no JVD Rate: regular rate and tachycardic GI: Other: Ostomy in place Palpation (GI): Soft to palpation : Other: Non-tender bladder. Skin: General skin exam: no rashes or lesions noted Neuro: General: patient oriented x3 and moves all extremities Extrem: Other: No edema General: Yes no pedal edema Objective Data Labs CBC & Chem 7: 12/24/21 06:05 12/24/21 06:05 Labs: Laboratory Results - last 24 hr 12/23/21 12/23/21 12/23/21 11:21 15:43 20:20 WBC RBC Hgb Hct MCV MCH MCHC RDW Plt Count MPV Absolute Nucleated RBC Nucleated RBC % (auto) Sodium Potassium Chloride Carbon Dioxide Anion Gap BUN Creatinine Estim Creat Clear Calc Estimated GFR POC Glucose 191 H 234 H 200 H Random Glucose Calcium Magnesium Iron TIBC % Saturation Unsat Iron Binding Ferritin Lactate Dehydrogenase 12/24/21 12/24/21 12/24/21 06:05 06:05 07:09 WBC 9.4 RBC 2.91 L Hgb 7.9 L Hct 24.7 L MCV 84.9 D MCH 27.1 MCHC 32.0 RDW 18.0 H Plt Count 180 MPV 11.1 Absolute Nucleated RBC 0.000 Nucleated RBC % (auto) 0.0 Sodium 139 Potassium 5.1 D Chloride 104 Carbon Dioxide 16 L Anion Gap 24 H BUN 76 H Creatinine 5.72 H* Estim Creat Clear Calc 8.7 Estimated GFR 10 POC Glucose 164 H Random Glucose 202 H D Calcium 7.9 L Magnesium 1.9 Iron 29 L TIBC 180 L % Saturation 16 Unsat Iron Binding 151 Ferritin 245 Lactate Dehydrogenase 213 Microbiology Microbiology Results: Microbiology 12/17/21 Unknown Urine Other - Kidney Left Urine Culture - Final Enterococcus raffinosus Lalitha albicans 12/16/21 22:37 Urine clean catch - Urine cowart top Urine Culture - Final Procedures Date of Service Date of Service: 12/24/21 Assessment & Plan Assessment and plan (1) Acute kidney injury: Status: Acute Assessment and Plan: Mr. 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 1. ESTUARDO: multifact including cont OBS UROPATHY and hypovolemia; s/p christine stent replacement and SCr initially decr 9.6 to 5. 7 but SCr now remains STUCK at 5.7 and will likely need PCN tube ( uro evaluating this); no indication for STRUCTURAL ENGINEERING TECHNICIAN yet 2. CKD 4: BSL SCr 3.0 3. Anemia: Fe/EPo def 4. NAGMA: d/t ESTUARDO/CKD REC: uro to eval ques need for reimaging vs L PCN tube vs cont obs monitoring for another 1-2 days; IV Fe and epo as ordered; PO NaHCO3 as oredered No indication for STRUCTURAL ENGINEERING TECHNICIAN yet --protect non-dominat arm for future AVF ESTUARDO on CKD in the setting of profound hypovolemia & hydronephrosis refractory to left stent (Patient's expressed concern that Mr. Mireles outpatient team is not able to adequately follow his progressive renal failure She expressed wishes to transfer care to [facility] through [place]. She had notified? his old outpatient renal team) (2) Pyelonephritis: Status: Acute Plan ESTUARDO on CKD Time Spent With Patient Time: Total time spent is greater than 50% in coordination of care (as documented) at patient's floor/unit and/or counseling patient: Progress Note: Quality Stroke Does the patient have a stroke diagnosis?: No
[2021-12-24 10:32] LABS: Folate 12.1 ng/mL (> or = 4.0); Vitamin B12 564 pg/mL (200-900)
[2021-12-24 11:18] VITALS: BP 149/66; PULSE 72; RESP 16; TEMP 36.7; O2SAT 95
[2021-12-24 11:18] LABS: Glucose, Whole Blood 233 mg/dL (60-115)
[2021-12-24] MEDS: Heparin Sodium,Porcine 5,000 UNIT/ML VIAL 5000 UNIT SUBCUT (11:29)
[2021-12-24] MEDS: Sodium Bicarbonate 650 MG TABLET PO ×3 (11:30→21:53)
[2021-12-24] MEDS: Iron Sucrose Complex 200 MG in 0.9 % Sodium Chloride 100 ML 440 MG IV (11:31)
--- NOTE | 2021-12-24 11:50 | MHC.CLN ---
F/U PO INTAKE 75-100% DIET RX: 2000DM-APPROPRIATE PT RECEIVING ENSURE PLUS HIGH PROTEIN BID TO INCREASE KCALS PROVIDES 700KCALS, 40G PROTEIN REDNESS DOCUMENTED TO COCCYX CONTINUE TO MONITOR PO INTAKE CLOSELY
--- NOTE | 2021-12-24 12:11 | HO.PM.IMPN ---
Subjective Subjective Date of Service: 12/24/21 Interval History: feels well denies pain no N/V Review of Systems Review of Systems: Yes all other systems are reviewed and are negative Physical Exam Vital Signs: Vital Signs: Last Vital Signs Temp 98.0 F 12/24/21 11:18 Pulse 72 12/24/21 11:18 Resp 16 12/24/21 11:18 BP 149/66 H 12/24/21 11:18 Pulse Ox 95 12/24/21 11:18 O2 Del Method 12/24/21 11:18 O2 Flow Rate 6 12/17/21 16:45 BMI result Body Mass Index 19.9 Gen: in no acute distress HEENT: sclera anicteric, moist mucus membranes Neck: supple Lungs: clear to auscultation bilaterally Heart: regular rate and rhythm, no murmurs Abd: soft, non-tender, non-distended, colostomy with liquid brown stool : Carmona Ext: no edema Skin: warm/well-perfused Neuro: alert and oriented x3, no focal findings Psych: appropriate affect Objective Data Active Medications Acetaminophen (Acetaminophen 325 Mg Tablet) 650 mg PO Q6H PRN PRN Reason: Pain, Mild (Pain Scale 1-3) Last Admin: 12/17/21 21:57 Dose: 650 mg Documented By: ANASTACIA Acetaminophen (Acetaminophen 325 Mg Tablet) 650 mg PO ONCE PRN PRN Reason: Pain, Mild (Pain Scale 1-3) Amlodipine Besylate (Amlodipine Besylate 5 Mg Tablet) 5 mg PO BID [facility]; Protocol Last Admin: 12/24/21 08:48 Dose: 5 mg Documented By: J LUIS Atorvastatin Calcium (Atorvastatin Calcium 10 Mg Tablet) 10 mg PO BEDTIME [facility] Last Admin: 12/23/21 22:09 Dose: 10 mg Documented By: JOSE Calcium Carbonate (Calcium Carbonate 500 Mg Tablet) 1,000 mg PO BID [facility] Last Admin: 12/24/21 08:47 Dose: 1,000 mg Documented By: J LUIS Carvedilol (Carvedilol 12.5 Mg Tablet) 12.5 mg PO BID [facility]; Protocol Last Admin: 12/24/21 08:48 Dose: 12.5 mg Documented By: J LUIS Cyanocobalamin (Cyanocobalamin (Vitamin B-12) 1,000 Mcg Tablet) 1,000 mcg PO DAILY [facility] Last Admin: 12/24/21 08:48 Dose: 1,000 mcg Documented By: J LUIS Dextrose (Dextrose 50 % 25 Gm/50 Ml Syringe) 25 gm IVPUSH Q15M PRN; Protocol PRN Reason: per Hypoglycemia Standing Ord. Dipyridamole/Aspirin (Aspirin/Dipyridamole Er 25/200 Cpmp.12hr) 1 cap PO BID [facility] Last Admin: 12/24/21 08:48 Dose: 1 cap Documented By: J LUIS Docusate Sodium (Docusate Sodium 100 Mg Capsule) 100 mg PO DAILY [facility] Last Admin: 12/24/21 08:47 Dose: 100 mg Documented By: J LUIS Famotidine (Famotidine 20 Mg Tablet) 20 mg PO BID [facility] Last Admin: 12/24/21 08:47 Dose: 20 mg Documented By: J LUIS Glucose (Glucose Gel 15 Gm Gel..Gram.) 15 gm PO Q15M PRN; Protocol PRN Reason: per Hypoglycemia Standing Ord. Heparin Sodium (Porcine) (Heparin Sodium,Porcine 5,000 Unit/Ml Vial) 5,000 unit SUBCUT Q12H [facility] Last Admin: 12/24/21 11:29 Dose: 5,000 unit Documented By: J LUIS Hydralazine HCl (Hydralazine Hcl 25 Mg Tablet) 25 mg PO TID [facility]; Protocol Last Admin: 12/24/21 08:47 Dose: 25 mg Documented By: J LUIS Insulin Human Lispro (Insulin Lispro 100 Unit/Ml 3 Ml Vial) 0 unit SUBCUT QIDACHS [facility]; Protocol Last Admin: 12/24/21 11:30 Dose: 4 unit Documented By: J LUIS Magnesium Oxide (Magnesium Oxide 400 Mg Tablet) 400 mg PO BID [facility] Last Admin: 12/24/21 08:49 Dose: 400 mg Documented By: J LUIS Melatonin (Melatonin 3 Mg Tablet) 6 mg PO BEDTIME PRN PRN Reason: insomnia Multivitamins/Vitamin C (Multivitamin Tablet) 1 tab PO DAILY [facility] Last Admin: 12/24/21 08:48 Dose: 1 tab Documented By: J LUIS Nystatin (Nystatin Powder 15 Gm Bottle) 1 appl TOPICAL BID [facility]; Protocol Last Admin: 12/24/21 09:43 Dose: 1 appl Documented By: J LUIS Ondansetron HCl (Ondansetron Hcl 4 Mg/2 Ml Vial) 4 mg IVPUSH Q8H PRN PRN Reason: Nausea and Vomiting Ondansetron HCl (Ondansetron Hcl 4 Mg/2 Ml Vial) 4 mg IVPUSH ONCE PRN PRN Reason: Nausea and Vomiting Pharmacy Consult (Consult Rx Perform Med Rec) 1 each MISCELLANE ONCE PRN PRN Reason: Consult order Sodium Bicarbonate (Sodium Bicarbonate 650 Mg Tablet) 650 mg PO TID [facility] Last Admin: 12/24/21 11:30 Dose: 650 mg Documented By: J LUIS Sodium Chloride (0.9 % Sodium Chloride Flush 3 Ml Syringe) 3 ml IVFLUSH QSHIFT [facility] Last Admin: 12/24/21 08:48 Dose: 3 ml Documented By: J LUIS Tamsulosin HCl (Tamsulosin Hcl 0.4 Mg Capsule) 0.4 mg PO BEDTIME [facility] Last Admin: 12/23/21 22:10 Dose: 0.4 mg Documented By: JOSE Vitamin D (Cholecalciferol (Vitamin D3) 25 Mcg Tablet) 50 mcg PO DAILY [facility] Last Admin: 12/24/21 08:47 Dose: 50 mcg Documented By: J LUIS Zinc Sulfate (Zinc Sulfate 220 Mg Capsule) 220 mg PO DAILY [facility] Last Admin: 12/24/21 08:48 Dose: 220 mg Documented By: J LUIS Labs CBC & Chem 7: 12/24/21 06:05 12/24/21 06:05 Labs: Laboratory Results - last 24 hr 12/23/21 12/23/21 12/24/21 15:43 20:20 06:05 MCV 84.9 D MCH 27.1 MCHC 32.0 RDW 18.0 H Plt Count 180 MPV 11.1 Absolute Nucleated RBC 0.000 Nucleated RBC % (auto) 0.0 Anion Gap Estim Creat Clear Calc Estimated GFR POC Glucose 234 H 200 H Random Glucose Calcium Magnesium Iron TIBC % Saturation Unsat Iron Binding Ferritin Lactate Dehydrogenase Vitamin B12 Folate 12/24/21 12/24/21 12/24/21 06:05 07:09 09:01 MCV MCH MCHC RDW Plt Count MPV Absolute Nucleated RBC Nucleated RBC % (auto) Anion Gap 24 H Estim Creat Clear Calc 8.7 Estimated GFR 10 POC Glucose 164 H Random Glucose 202 H D Calcium 7.9 L Magnesium 1.9 Iron 29 L TIBC 180 L % Saturation 16 Unsat Iron Binding 151 Ferritin 245 Lactate Dehydrogenase 213 Vitamin B12 564 Folate 12.1 12/24/21 11:08 MCV MCH MCHC RDW Plt Count MPV Absolute Nucleated RBC Nucleated RBC % (auto) Anion Gap Estim Creat Clear Calc Estimated GFR POC Glucose 233 H Random Glucose Calcium Magnesium Iron TIBC % Saturation Unsat Iron Binding Ferritin Lactate Dehydrogenase Vitamin B12 Folate Assessment and Plan (1) Metabolic encephalopathy: Status: Acute (2) Acute kidney injury: Status: Acute (3) Metabolic acidosis: Status: Acute Plan d#9 81 year-old man with CKD4, recurrent nephrolithiasis, colon CA s/p colostomy, essential HTN, DM2, and PTSD who presents today with worsening confusion with alternating lethargy and agitated delirium for the past 2 days.? Found to have ESTUARDO with serum creatinine up to 9.7 from baseline of 3, uremia with BUN of 128, and severe metabolic acidosis with serum bicarbonate of 6 and venous pH of 7.22. # ESTUARDO/CKD4 and progressing but not quite ESRD yet - Had cystoscopy 12/[address] Kang with the following Post Operative Diagnosis:? bilateral hydronephrosis, acute on chronic renal failure, pyelonephritis left side Procedure:? cystoscopy, left stent removal,? left retrograde,left renal pelvis aspiration, left stent placement, right retrograde,? right stent placement - continue trending SCr, no indication for renal replacement therapy ( [employer]) - Urine culture is now showing enteroccoccus, yeast and strep-- per ID contamination/colonization # hypokalemia - corrected # severe metabolic acidosis - resolving # mild hypernatremia - resolved # metabolic encephalopathy - suspect due to uremia/ESTUARDO; may have toxic component from levofloxacin as well [he was prescribed this empirically for UTI as outpt]; no longer confused, resolved # hypoMg - due to renal wasting; resolved # hx CVA - restarted Aggrenox # HTN - continue carvedilol + hydralazine + amlodipine # DM2 - hold sitagliptin, give correction-dose lispro # VTE ppx: SCDs, restart heparin and closely watch for hematuria # dispo: anticipate STR In my clinical judgment, the patient requires continued inpatient hospitalization for the following reasons: severe metahbolic acidosis, ESTUARDO and may need acute dialysis Quality Stroke Does the patient have a stroke diagnosis?: No VTE Prior VTE?: No VTE Risk Level:: Medical - moderate - high VTE Device Contraindication: N/A - Device Ordered VTE Drug Contraindication: N/A - Med Ordered
[2021-12-24 15:42] VITALS: BP 143/65; PULSE 75; RESP 17; TEMP 36.7; O2SAT 95
[2021-12-24 15:58] LABS: Glucose, Whole Blood 228 mg/dL (60-115)
[2021-12-24 20:00] VITALS: BP 148/71; PULSE 78; RESP 15; TEMP 36.7; O2SAT 97
[2021-12-24 21:19] LABS: Glucose, Whole Blood 179 mg/dL (60-115)
[2021-12-24] MEDS: Atorvastatin Calcium 10 MG TABLET PO (21:53)
[2021-12-24] MEDS: Tamsulosin HCL 0.4 MG CAPSULE PO (21:54)
[2021-12-24 23:40] VITALS: BP 148/67; PULSE 91; RESP 16; TEMP 36.9; O2SAT 97
[2021-12-25] VITALS (7 sets, daily range): BP systolic 115–144; BP diastolic 59–74; PULSE 71–92; RESP 16–20; TEMP 36.4–36.9; O2SAT 95–99
[2021-12-25] MEDS: Heparin Sodium,Porcine 5,000 UNIT/ML VIAL 5000 UNIT SUBCUT ×2 (00:36→12:22)
[2021-12-25] MEDS: 0.9 % Sodium Chloride Flush 3 ML SYRINGE IVFLUSH ×3 (00:36→19:56)
[2021-12-25 07:21] LABS: Hematocrit 25.7 % (42.0-52.0); Hemoglobin 8.2 g/dl (14.0-18.0); Mean Corpuscular HGB Conc 31.9 g/dl (31.0-36.0); Mean Corpuscular Hemoglobin 27.2 pg (27.0-33.0); Mean Corpuscular Volume 85.4 fL (80.0-98.0); Mean Platelet Volume 10.6 fL (9.4-12.4); Platelet Count 208 X10*3/uL (160-400); Red Blood Count 3.01 X10*6/uL (4.60-5.80); White Blood Count 11.1 X10*3/uL (4.8-10.8)
[2021-12-25 07:39] LABS: Anion Gap 18 (12-20); Blood Urea Nitrogen 73 mg/dL (9-16); Calcium 8.5 mg/dL (8.4-10.2); Carbon Dioxide 24 mmol/L (22-29); Chloride 105 mmol/L (96-108); Creatinine Clr Calc Pharmacy 8.7; Estimated Glomerular Filt Rate 10; Glucose Random 145 mg/dL (60-115); Magnesium 1.7 mg/dL (1.6-2.6); Potassium 5.3 mmol/L (3.3-5.1); Sodium 142 mmol/L (135-145)
[2021-12-25 08:02] LABS: Glucose, Whole Blood 132 mg/dL (60-115)
--- NOTE | 2021-12-25 08:20 | MHC.CDI.CONC ---
CDI Concurrent Query Documentation Clarification: PHYSICIAN'S DOCUMENTATION REQUEST Date of Query: 12/25/21820 Patient Name: Ronny Vernon Admit Date: 12/16/21 Dear Doctor, A review of the medical record indicates additional documentation may be needed. Please review below and update the documentation accordingly. Risk Factors/Clinical Indicators/Treatments Clinical nutrition evaluation - Pt is moderately malnourished, midly depleted subcutaneous fat and muscle mass with chronic poor PO AND 18% wt loss. Recommend adding Ensure plus high protein BID to increase KCALS. ASPEN Criteria* Acute Illness Chronic Illness Clinical Characteristic Non-Severe (2 or more criteria present) Severe (2 or more criteria present) Non-Severe (2 or more criteria present) Severe (2 or more criteria present) Energy Intake <75% for >7 days <=50% for >=5 days <75% for >=1 month <=75% for >=1 month Weight Loss 1 week 1 ? 2% >2% N/A N/A 1 month 5% >5% 5% >5% 3 months 7.5 % >7.5% 7.5% >7.5% 6 months N/A N/A 10% >10% 1 year N/A N/A 20% >20% Body Fat Mild Moderate Mild Severe Muscle Mass Mild Moderate Mild Severe Fluid Accumulation Mild Moderate to Severe Mild Severe Reduced Marketing Sales Supervisor Strength N/A Measurably Reduced N/A Measurably Reduced *[facility] Hospitalist, 2017 Based on the above, which of the following most accurately represents the patient's nutritional status? Malnutrition (specify if mild, moderate, or severe) Protein calorie malnutrition (specify if mild, moderate, or severe) Other (please specify): Unable to determine Use of terms such as suspected, likely, concern for, or probable (associated with a specific diagnosis that is being evaluated, monitored, or treated as if it exists) are acceptable and can be coded in the inpatient setting, when documented at the time of discharge. Thank you, Clarice Silverman [facility], CDIS Extension: [phone] Please use your independent medical judgment in providing your response. THIS QUERY IS PART OF THE PERMANENT MEDICAL RECORD Provider Response: Moderate Protein-Calorie Malnutrition
[2021-12-25] MEDS: Docusate Sodium 100 MG CAPSULE PO (10:17)
[2021-12-25] MEDS: Cholecalciferol (Vitamin D3) 25 MCG TABLET 50 MCG PO (10:17)
[2021-12-25] MEDS: Zinc Sulfate 220 MG CAPSULE PO (10:17)
[2021-12-25] MEDS: Cyanocobalamin (Vitamin B-12) 1,000 MCG TABLET 1000 MCG PO (10:17)
[2021-12-25] MEDS: carvediloL 12.5 MG TABLET PO ×2 (10:17→19:56)
[2021-12-25] MEDS: amLODIPine Besylate 5 MG TABLET PO ×2 (10:17→19:55)
[2021-12-25] MEDS: Sodium Bicarbonate 650 MG TABLET PO ×2 (10:17→19:55)
[2021-12-25] MEDS: Magnesium Oxide 400 MG TABLET PO ×2 (10:18→19:55)
[2021-12-25] MEDS: Famotidine 20 MG TABLET PO ×2 (10:18→19:55)
[2021-12-25] MEDS: Multivitamin TABLET 1 TAB PO (10:18)
[2021-12-25] MEDS: hydrALAZINE HCl 25 MG TABLET PO ×2 (10:18→19:56)
[2021-12-25] MEDS: Sodium Zirconium Cyclosilicate 10 GM POWD.PACK PO (10:29)
[2021-12-25] MEDS: Nystatin Powder 15 GM BOTTLE 1 APPL TOPICAL ×2 (10:30→20:04)
[2021-12-25 11:29] LABS: Glucose, Whole Blood 199 mg/dL (60-115)
[2021-12-25] MEDS: Insulin Lispro 100 UNIT/ML 3 ML VIAL SUBCUT ×2 (12:21→19:56)
--- NOTE | 2021-12-25 12:29 | HO.PM.IMPN ---
Subjective Subjective Date of Service: 12/25/21 Interval History: no pain no N/V Review of Systems Review of Systems: Yes all other systems are reviewed and are negative Physical Exam Vital Signs: Vital Signs: Last Vital Signs Temp 97.6 F 12/25/21 12:00 Pulse 90 12/25/21 12:00 Resp 20 12/25/21 12:00 BP 138/64 12/25/21 12:00 Pulse Ox 97 12/25/21 12:00 O2 Del Method 12/25/21 12:00 O2 Flow Rate 6 12/17/21 16:45 BMI result Body Mass Index 19.9 Gen: in no acute distress HEENT: sclera anicteric, moist mucus membranes Neck: supple Lungs: clear to auscultation bilaterally Heart: regular rate and rhythm, no murmurs Abd: soft, non-tender, non-distended, colostomy with liquid brown stool : Carmona Ext: no edema Skin: warm/well-perfused Neuro: alert and oriented x3, no focal findings Psych: appropriate affect Objective Data Active Medications Acetaminophen (Acetaminophen 325 Mg Tablet) 650 mg PO Q6H PRN PRN Reason: Pain, Mild (Pain Scale 1-3) Last Admin: 12/17/21 21:57 Dose: 650 mg Documented By: ANASTACIA Acetaminophen (Acetaminophen 325 Mg Tablet) 650 mg PO ONCE PRN PRN Reason: Pain, Mild (Pain Scale 1-3) Amlodipine Besylate (Amlodipine Besylate 5 Mg Tablet) 5 mg PO BID [facility]; Protocol Last Admin: 12/25/21 10:17 Dose: 5 mg Documented By: ANGELIKA Atorvastatin Calcium (Atorvastatin Calcium 10 Mg Tablet) 10 mg PO BEDTIME [facility] Last Admin: 12/24/21 21:53 Dose: 10 mg Documented By: ANASTACIA Calcium Carbonate (Calcium Carbonate 500 Mg Tablet) 1,000 mg PO BID [facility] Last Admin: 12/25/21 10:17 Dose: 1,000 mg Documented By: ANGELIKA Carvedilol (Carvedilol 12.5 Mg Tablet) 12.5 mg PO BID [facility]; Protocol Last Admin: 12/25/21 10:17 Dose: 12.5 mg Documented By: ANGELIKA Cyanocobalamin (Cyanocobalamin (Vitamin B-12) 1,000 Mcg Tablet) 1,000 mcg PO DAILY [facility] Last Admin: 12/25/21 10:17 Dose: 1,000 mcg Documented By: ANGELIKA Dextrose (Dextrose 50 % 25 Gm/50 Ml Syringe) 25 gm IVPUSH Q15M PRN; Protocol PRN Reason: per Hypoglycemia Standing Ord. Dipyridamole/Aspirin (Aspirin/Dipyridamole Er 25/200 Cpmp.12hr) 1 cap PO BID [facility] Last Admin: 12/25/21 10:17 Dose: 1 cap Documented By: ANGELIKA Docusate Sodium (Docusate Sodium 100 Mg Capsule) 100 mg PO DAILY [facility] Last Admin: 12/25/21 10:17 Dose: 100 mg Documented By: ANGELIKA Famotidine (Famotidine 20 Mg Tablet) 20 mg PO BID [facility] Last Admin: 12/25/21 10:18 Dose: 20 mg Documented By: ANGELIKA Glucose (Glucose Gel 15 Gm Gel..Gram.) 15 gm PO Q15M PRN; Protocol PRN Reason: per Hypoglycemia Standing Ord. Heparin Sodium (Porcine) (Heparin Sodium,Porcine 5,000 Unit/Ml Vial) 5,000 unit SUBCUT Q12H [facility] Last Admin: 12/25/21 12:22 Dose: 5,000 unit Documented By: GERRY Hydralazine HCl (Hydralazine Hcl 25 Mg Tablet) 25 mg PO TID [facility]; Protocol Last Admin: 12/25/21 10:18 Dose: 25 mg Documented By: ANGELIKA Insulin Human Lispro (Insulin Lispro 100 Unit/Ml 3 Ml Vial) 0 unit SUBCUT QIDACHS [facility]; Protocol Last Admin: 12/25/21 12:21 Dose: 2 unit Documented By: GERRY Magnesium Oxide (Magnesium Oxide 400 Mg Tablet) 400 mg PO BID [facility] Last Admin: 12/25/21 10:18 Dose: 400 mg Documented By: ANGELIKA Melatonin (Melatonin 3 Mg Tablet) 6 mg PO BEDTIME PRN PRN Reason: insomnia Multivitamins/Vitamin C (Multivitamin Tablet) 1 tab PO DAILY [facility] Last Admin: 12/25/21 10:18 Dose: 1 tab Documented By: ANGELIKA Nystatin (Nystatin Powder 15 Gm Bottle) 1 appl TOPICAL BID [facility]; Protocol Last Admin: 12/25/21 10:30 Dose: 1 appl Documented By: ANGELIKA Ondansetron HCl (Ondansetron Hcl 4 Mg/2 Ml Vial) 4 mg IVPUSH Q8H PRN PRN Reason: Nausea and Vomiting Ondansetron HCl (Ondansetron Hcl 4 Mg/2 Ml Vial) 4 mg IVPUSH ONCE PRN PRN Reason: Nausea and Vomiting Pharmacy Consult (Consult Rx Perform Med Rec) 1 each MISCELLANE ONCE PRN PRN Reason: Consult order Sodium Bicarbonate (Sodium Bicarbonate 650 Mg Tablet) 650 mg PO TID [facility] Last Admin: 12/25/21 10:17 Dose: 650 mg Documented By: ANGELIKA Sodium Chloride (0.9 % Sodium Chloride Flush 3 Ml Syringe) 3 ml IVFLUSH QSHIFT [facility] Last Admin: 12/25/21 10:18 Dose: 3 ml Documented By: ANGELIKA Tamsulosin HCl (Tamsulosin Hcl 0.4 Mg Capsule) 0.4 mg PO BEDTIME [facility] Last Admin: 12/24/21 21:54 Dose: 0.4 mg Documented By: ANASTACIA Vitamin D (Cholecalciferol (Vitamin D3) 25 Mcg Tablet) 50 mcg PO DAILY [facility] Last Admin: 12/25/21 10:17 Dose: 50 mcg Documented By: ANGELIKA Zinc Sulfate (Zinc Sulfate 220 Mg Capsule) 220 mg PO DAILY [facility] Last Admin: 12/25/21 10:17 Dose: 220 mg Documented By: ANGELIKA Labs CBC & Chem 7: 12/25/21 07:03 12/25/21 07:03 Labs: Laboratory Results - last 24 hr 12/24/21 12/24/21 12/25/21 15:50 20:22 07:03 MCV MCH MCHC RDW Plt Count MPV Absolute Nucleated RBC Nucleated RBC % (auto) Anion Gap 18 Estim Creat Clear Calc 8.7 Estimated GFR 10 POC Glucose 228 H 179 H Random Glucose 145 H Calcium 8.5 D Magnesium 1.7 Blood Type Antibody Screen 12/25/21 12/25/21 12/25/21 07:03 07:03 07:56 MCV 85.4 MCH 27.2 MCHC 31.9 RDW 18.0 H Plt Count 208 MPV 10.6 Absolute Nucleated RBC 0.000 Nucleated RBC % (auto) 0.0 Anion Gap Estim Creat Clear Calc Estimated GFR POC Glucose 132 H Random Glucose Calcium Magnesium Blood Type AB Positive Antibody Screen NEGATIVE 12/25/21 11:17 MCV MCH MCHC RDW Plt Count MPV Absolute Nucleated RBC Nucleated RBC % (auto) Anion Gap Estim Creat Clear Calc Estimated GFR POC Glucose 199 H Random Glucose Calcium Magnesium Blood Type Antibody Screen Assessment and Plan (1) Metabolic encephalopathy: Status: Acute (2) Acute kidney injury: Status: Acute (3) Metabolic acidosis: Status: Acute Plan d#10 81 year-old man with CKD4, recurrent nephrolithiasis, colon CA s/p colostomy, essential HTN, DM2, and PTSD who presents today with worsening confusion with alternating lethargy and agitated delirium for the past 2 days.? Found to have ESTUARDO with serum creatinine up to 9.7 from baseline of 3, uremia with BUN of 128, and severe metabolic acidosis with serum bicarbonate of 6 and venous pH of 7.22. # ESTUARDO/CKD4 and progressing but not quite ESRD yet - Had cystoscopy 12/[address] Kang with the following procedures: Post Operative Diagnosis:? bilateral hydronephrosis, acute on chronic renal failure, pyelonephritis left side Procedure:? cystoscopy, left stent removal,? left retrograde,left renal pelvis aspiration, left stent placement, right retrograde,? right stent placement - SCr seems to have stabilized around 5.7 [prior baseline around 3]. check US to ensure complete drainage; question of whether L PCN would offer additional drainage. continue to monitor BMP - Urine culture is now showing enteroccoccus, yeast and strep-- per ID contamination/colonization, not true infection # hyperK - mild; 1 dose SZC; recheck BMP in AM # severe metabolic acidosis - resolved # mild hypernatremia - resolved # metabolic encephalopathy - suspect due to uremia/ESTUARDO; may have toxic component from levofloxacin as well [he was prescribed this empirically for UTI as outpt]; resolved # hypoMg - due to renal wasting; resolved # hx CVA - restarted Aggrenox # HTN - continue carvedilol + hydralazine + amlodipine # DM2 - hold sitagliptin, give correction-dose lispro # VTE ppx: SCDs, restarted heparin and closely watch for hematuria # dispo: anticipate STR In my clinical judgment, the patient requires continued inpatient hospitalization for the following reasons: severe metabolic acidosis, ESTUARDO and may need acute dialysis Quality Stroke Does the patient have a stroke diagnosis?: No VTE Prior VTE?: No VTE Risk Level:: Medical - moderate - high VTE Device Contraindication: N/A - Device Ordered VTE Drug Contraindication: N/A - Med Ordered
--- NOTE | 2021-12-25 14:30 | PM.PNNEP ---
Subjective Subjective Date of Service: 12/25/21 Interval history: Seen and examined, events noted Physical Exam Vital Signs: Vital Signs: Last Vital Signs Temp 97.6 F 12/25/21 12:00 Pulse 90 12/25/21 12:00 Resp 20 12/25/21 12:00 BP 138/64 12/25/21 12:00 Pulse Ox 97 12/25/21 12:00 O2 Del Method 12/25/21 12:00 O2 Flow Rate 6 12/17/21 16:45 BMI result Body Mass Index 19.9 Const: Other: Obtunded. General: comfortable and no acute distress Orientation/consciousness: patient oriented x3 HEENT: Other: Very dry mucous membranes Eyes: Other: No scleral icterus. EOM: EOMs intact bilaterally Neck: Neck: Yes supple Resp: Other: Tachypneic. CTAB otherwise Auscultation: diminished lung sounds Cardio: Jugular venous distension: no JVD Rate: regular rate and tachycardic GI: Other: Ostomy in place Palpation (GI): Soft to palpation : Other: Non-tender bladder. Skin: General skin exam: no rashes or lesions noted Neuro: General: patient oriented x3 and moves all extremities Extrem: Other: No edema General: Yes no pedal edema Objective Data Labs CBC & Chem 7: 12/25/21 07:03 12/25/21 07:03 Labs: Laboratory Results - last 24 hr 12/24/21 12/24/21 12/25/21 15:50 20:22 07:03 WBC RBC Hgb Hct MCV MCH MCHC RDW Plt Count MPV Absolute Nucleated RBC Nucleated RBC % (auto) Sodium 142 Potassium 5.3 H Chloride 105 Carbon Dioxide 24 Anion Gap 18 BUN 73 H Creatinine 5.68 H* Estim Creat Clear Calc 8.7 Estimated GFR 10 POC Glucose 228 H 179 H Random Glucose 145 H Calcium 8.5 D Magnesium 1.7 Blood Type Antibody Screen 12/25/21 12/25/21 12/25/21 07:03 07:03 07:56 WBC 11.1 H RBC 3.01 L Hgb 8.2 L Hct 25.7 L MCV 85.4 MCH 27.2 MCHC 31.9 RDW 18.0 H Plt Count 208 MPV 10.6 Absolute Nucleated RBC 0.000 Nucleated RBC % (auto) 0.0 Sodium Potassium Chloride Carbon Dioxide Anion Gap BUN Creatinine Estim Creat Clear Calc Estimated GFR POC Glucose 132 H Random Glucose Calcium Magnesium Blood Type AB Positive Antibody Screen NEGATIVE 12/25/21 11:17 WBC RBC Hgb Hct MCV MCH MCHC RDW Plt Count MPV Absolute Nucleated RBC Nucleated RBC % (auto) Sodium Potassium Chloride Carbon Dioxide Anion Gap BUN Creatinine Estim Creat Clear Calc Estimated GFR POC Glucose 199 H Random Glucose Calcium Magnesium Blood Type Antibody Screen Microbiology Microbiology Results: Microbiology 12/17/21 Unknown Urine Other - Kidney Left Urine Culture - Final Enterococcus raffinosus Lalitha albicans 12/16/21 22:37 Urine clean catch - Urine cowart top Urine Culture - Final Procedures Date of Service Date of Service: 12/25/21 Assessment & Plan Assessment and plan (1) Acute kidney injury: Status: Acute Assessment and Plan: Mr. 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 1. ESTUARDO: multifact including cont OBS UROPATHY and hypovolemia; s/p christine stent replacement and SCr initially decr 9.6 to 5. 7 but SCr now remains STUCK at 5.7 and will likely need PCN tube ( uro evaluating this); no indication for HAZARDOUS WASTE MANAGEMENT SPECIALIST yet 2. CKD 4: BSL SCr 3.0 3. Anemia: Fe/EPo def 4. NAGMA: d/t ESTUARDO/CKD REC: repeat U/S to eval ques of persistnet L hydro; uro to eval ques need for reimaging vs L PCN tube vs cont obs monitoring for another 1-2 days; IV Fe and epo as ordered; PO NaHCO3 as oredered No indication for HAZARDOUS WASTE MANAGEMENT SPECIALIST yet --protect non-dominat arm for future AVF ESTUARDO on CKD in the setting of profound hypovolemia & hydronephrosis refractory to left stent (Patient's expressed concern that Mr. Mireles outpatient team is not able to adequately follow his progressive renal failure She expressed wishes to transfer care to [facility] through [place]. She had notified? his old outpatient renal team) (2) Pyelonephritis: Status: Acute Plan ESTUARDO on CKD Time Spent With Patient Time: Total time spent is greater than 50% in coordination of care (as documented) at patient's floor/unit and/or counseling patient: Progress Note: Quality Stroke Does the patient have a stroke diagnosis?: No
[2021-12-25] MEDS: Acetaminophen 325 MG TABLET 650 MG PO (15:43)
--- NOTE | 2021-12-25 19:35 | PC.NURSE ---
colostomy bag removed and changed
[2021-12-25 19:38] LABS: Glucose, Whole Blood 238 mg/dL (60-115)
[2021-12-25] MEDS: Atorvastatin Calcium 10 MG TABLET PO (19:55)
[2021-12-25] MEDS: Tamsulosin HCL 0.4 MG CAPSULE PO (19:56)
[2021-12-26] MEDS: Heparin Sodium,Porcine 5,000 UNIT/ML VIAL 5000 UNIT SUBCUT ×2 (00:55→11:44)
[2021-12-26 03:47] VITALS: BP 154/70; PULSE 73; RESP 17; TEMP 36.5; O2SAT 96
[2021-12-26 07:34] VITALS: BP 152/73; PULSE 74; RESP 20; TEMP 36.4; O2SAT 96
[2021-12-26 07:42] LABS: Glucose, Whole Blood 133 mg/dL (60-115)
[2021-12-26 07:55] LABS: Anion Gap 17 (12-20); Blood Urea Nitrogen 73 mg/dL (9-16); Calcium 8.2 mg/dL (8.4-10.2); Carbon Dioxide 25 mmol/L (22-29); Chloride 105 mmol/L (96-108); Creatinine Clr Calc Pharmacy 8.9; Estimated Glomerular Filt Rate 10; Glucose Random 143 mg/dL (60-115); Potassium 5.4 mmol/L (3.3-5.1); Sodium 142 mmol/L (135-145)
[2021-12-26] MEDS: Docusate Sodium 100 MG CAPSULE PO (08:29)
[2021-12-26] MEDS: Cyanocobalamin (Vitamin B-12) 1,000 MCG TABLET 1000 MCG PO (08:29)
[2021-12-26] MEDS: amLODIPine Besylate 5 MG TABLET PO ×2 (08:29→22:12)
[2021-12-26] MEDS: Sodium Bicarbonate 650 MG TABLET PO ×3 (08:29→22:12)
[2021-12-26] MEDS: carvediloL 12.5 MG TABLET PO ×2 (08:29→22:12)
[2021-12-26] MEDS: Zinc Sulfate 220 MG CAPSULE PO (08:29)
[2021-12-26] MEDS: Magnesium Oxide 400 MG TABLET PO ×2 (08:30→22:12)
[2021-12-26] MEDS: 0.9 % Sodium Chloride Flush 3 ML SYRINGE IVFLUSH ×2 (08:30→14:51)
[2021-12-26] MEDS: Cholecalciferol (Vitamin D3) 25 MCG TABLET 50 MCG PO (08:30)
[2021-12-26] MEDS: Multivitamin TABLET 1 TAB PO (08:30)
[2021-12-26] MEDS: Famotidine 20 MG TABLET PO ×2 (08:30→22:11)
[2021-12-26] MEDS: hydrALAZINE HCl 25 MG TABLET PO ×3 (08:30→22:12)
[2021-12-26] MEDS: Sodium Zirconium Cyclosilicate 10 GM POWD.PACK PO (08:32)
--- NOTE | 2021-12-26 11:11 | PM.PNNEP ---
Subjective Subjective Date of Service: 12/26/21 Interval history: Seen and examined, events noted Physical Exam Vital Signs: Vital Signs: Last Vital Signs Temp 97.6 F 12/26/21 07:34 Pulse 74 12/26/21 07:34 Resp 20 12/26/21 07:34 BP 152/73 H 12/26/21 07:34 Pulse Ox 96 12/26/21 07:34 O2 Del Method 12/26/21 07:34 O2 Flow Rate 6 12/17/21 16:45 BMI result Body Mass Index 19.9 Const: Other: Obtunded. General: comfortable and no acute distress Orientation/consciousness: patient oriented x3 HEENT: Other: Very dry mucous membranes Eyes: Other: No scleral icterus. EOM: EOMs intact bilaterally Neck: Neck: Yes supple Resp: Other: Tachypneic. CTAB otherwise Auscultation: diminished lung sounds Cardio: Jugular venous distension: no JVD Rate: regular rate and tachycardic GI: Other: Ostomy in place Palpation (GI): Soft to palpation : Other: Non-tender bladder. Skin: General skin exam: no rashes or lesions noted Neuro: General: patient oriented x3 and moves all extremities Extrem: Other: No edema General: Yes no pedal edema Objective Data Labs CBC & Chem 7: 12/25/21 07:03 12/26/21 07:15 Labs: Laboratory Results - last 24 hr 12/25/21 12/25/21 12/26/21 11:17 19:34 07:15 Sodium 142 Potassium 5.4 H Chloride 105 Carbon Dioxide 25 Anion Gap 17 BUN 73 H Creatinine 5.55 H* Estim Creat Clear Calc 8.9 Estimated GFR 10 POC Glucose 199 H 238 H Random Glucose 143 H Calcium 8.2 L 12/26/21 07:33 Sodium Potassium Chloride Carbon Dioxide Anion Gap BUN Creatinine Estim Creat Clear Calc Estimated GFR POC Glucose 133 H Random Glucose Calcium Microbiology Microbiology Results: Microbiology 12/17/21 Unknown Urine Other - Kidney Left Urine Culture - Final Enterococcus raffinosus Lalitha albicans 12/16/21 22:37 Urine clean catch - Urine cowart top Urine Culture - Final Procedures Date of Service Date of Service: 12/26/21 Assessment & Plan Assessment and plan (1) Acute kidney injury: Status: Acute Assessment and Plan: 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 1. ESTUARDO: multifact including cont OBS UROPATHY and hypovolemia; s/p christine stent replacement and SCr initially decr 9.6 to 5. 7 but SCr now remains STUCK at 5.7 repeatrenal U/S noted decr L hydro but still may need PCN tube ( uro evaluating this); no indication for SYSTEM SUPPORT DEVELOPER yet 2. CKD 4: BSL SCr 3.0 3. Anemia: Fe/EPo def 4. NAGMA: d/t ESTUARDO/CKD; improved on suppl REC: uro to re-eval ques need for L PCN tube vs cont obs monitoring for another 1-2 days, consider renal scan with lasix challenge but at this low GFR doubtful it will help assess degree of OBS of L kidney; IV Fe and epo as ordered; PO NaHCO3 as oredered No indication for SYSTEM SUPPORT DEVELOPER yet --protect non-dominat arm for future AVF (Patient's expressed concern that Mr. Mireles outpatient team is not able to adequately follow his progressive renal failure She expressed wishes to transfer care to [facility] through [place]. She had notified? his old outpatient renal team) (2) Pyelonephritis: Status: Acute Plan ESTUARDO on CKD Time Spent With Patient Time: Total time spent is greater than 50% in coordination of care (as documented) at patient's floor/unit and/or counseling patient: Progress Note: Quality Stroke Does the patient have a stroke diagnosis?: No
[2021-12-26 11:15] VITALS: BP 109/53; PULSE 87; RESP 18; TEMP 36.8; O2SAT 97
--- NOTE | 2021-12-26 11:25 | MHC.CM.PN ---
Per ROUNDS discussion,Patient is not yet medically cleared for dc; Creatinine is only improving slightly and Nephrology will be consulted. Home vs STR is the tentative plan and CM will continue to follow.
[2021-12-26 11:34] LABS: Glucose, Whole Blood 232 mg/dL (60-115)
[2021-12-26] MEDS: Insulin Lispro 100 UNIT/ML 3 ML VIAL SUBCUT ×3 (11:43→22:13)
[2021-12-26] MEDS: Nystatin Powder 15 GM BOTTLE 1 APPL TOPICAL (11:45)
--- NOTE | 2021-12-26 12:23 | P.PNUR_ITS ---
Subjective Subjective Date of Service: 12/26/21 Interval history: Cr fallen and stabilized at 5.5 Urine clear Question of efficacy of left stent (was upsized to 7Fr at time of procedure) [place] chronic May benefit from PCN if Cr persistent Physical Exam Vital Signs: Vital Signs: Last Vital Signs Temp 98.3 F 12/26/21 11:15 Pulse 87 12/26/21 11:15 Resp 18 12/26/21 11:15 BP 109/53 L 12/26/21 11:15 Pulse Ox 97 12/26/21 11:15 O2 Del Method 12/26/21 11:15 O2 Flow Rate 6 12/17/21 16:45 BMI result Body Mass Index 19.9 Const: General: cooperative, healthy appearing, comfortable and no acute distress Orientation/consciousness: patient oriented x3 HEENT: Face and sinus: Yes normal facial exam Mouth: moist mucous membranes Neck: Neck: Yes normal visual inspection, Yes full ROM and Yes trachea midline Chest: Chest palpation & inspection: normal inspection of the chest Resp: Effort & Inspection: normal respiratory effort, able to speak in complete sentences and no respiratory distress GI: Inspection: Yes normal to inspection Back/Spine/Pelvis: Cervical Spine: normal cervical lordosis Thoracic/Lumbar Spine: thoracic and lumbar spine normal to inspection Skin: General skin exam: no rashes or lesions noted Neuro: General: patient oriented x3, tone normal and moves all extremities Extrem: General: Yes normal to inspection and Yes capillary refill normal Urology Results Labs CBC & Chem 7: 12/25/21 07:03 12/26/21 07:15 Labs: Laboratory Results - last 24 hr 12/25/21 12/26/21 12/26/21 19:34 07:15 07:33 Sodium 142 Potassium 5.4 H Chloride 105 Carbon Dioxide 25 Anion Gap 17 BUN 73 H Creatinine 5.55 H* Estim Creat Clear Calc 8.9 Estimated GFR 10 POC Glucose 238 H 133 H Random Glucose 143 H Calcium 8.2 L 12/26/21 11:14 Sodium Potassium Chloride Carbon Dioxide Anion Gap BUN Creatinine Estim Creat Clear Calc Estimated GFR POC Glucose 232 H Random Glucose Calcium Progress Note: A&P Assessment and plan (1) Pyelonephritis: Status: Acute (2) Hydronephrosis: Status: Acute Plan The patient had an opportunity to ask questions regarding treatment plan. All questions were answered. Imaging studies, laboratory studies and physical exam results were discussed and reviewed in detail. No major barriers to understanding were identified. The patient expressed understanding and agreement with the above treatment plan. The patient is aware they should contact our office by phone for worsening of their current condition or the appearance of new symptoms. Compliance is encouraged with any medications and followup testing that is ordered. It is a privilege to be allowed the opportunity to participate in the urologic care of your patient. If you have any questions or concerns regarding treatment for the above conditions please do not hesitate to contact me. The office telephone contact is [phone]. This note is constructed using voice recognition software. While every effort has been made to ensure accuracy medical lab assistant errors may have been included. Yours sincerely, Dr Clement Kang MD, CHUCK Time Spent With Patient Time: Total time spent is greater than 50% in coordination of care (as documented) at patient's floor/unit and/or counseling patient: Progress Note: Quality Stroke Does the patient have a stroke diagnosis?: No
--- NOTE | 2021-12-26 12:26 | MHC.CLN ---
F/U PO INTAKE 100% DIET RX: 2000DM-APPROPRIATE PT RECEIVING ENSURE PLUS HIGH PROTEIN BID TO INCREASE KCALS PROVIDES 700KCALS, 40G PROTEIN CONTINUE TO MONITOR PO INTAKE CLOSELY
--- NOTE | 2021-12-26 14:06 | HO.PM.IMPN ---
Subjective Subjective Date of Service: 12/26/21 Interval History: no pain eating without N/V Review of Systems Review of Systems: Yes all other systems are reviewed and are negative Physical Exam Vital Signs: Vital Signs: Last Vital Signs Temp 98.3 F 12/26/21 11:15 Pulse 87 12/26/21 11:15 Resp 18 12/26/21 11:15 BP 109/53 L 12/26/21 11:15 Pulse Ox 97 12/26/21 11:15 O2 Del Method 12/26/21 11:15 O2 Flow Rate 6 12/17/21 16:45 BMI result Body Mass Index 19.9 Gen: in no acute distress HEENT: sclera anicteric, moist mucus membranes Neck: supple Lungs: clear to auscultation bilaterally Heart: regular rate and rhythm, no murmurs Abd: soft, non-tender, non-distended, colostomy with liquid brown stool : [place] Ext: no edema Skin: warm/well-perfused Neuro: alert and oriented x3, no focal findings Psych: appropriate affect Objective Data Active Medications Acetaminophen (Acetaminophen 325 Mg Tablet) 650 mg PO Q6H PRN PRN Reason: Pain, Mild (Pain Scale 1-3) Last Admin: 12/25/21 15:43 Dose: 650 mg Documented By: DEMETRIUS Acetaminophen (Acetaminophen 325 Mg Tablet) 650 mg PO ONCE PRN PRN Reason: Pain, Mild (Pain Scale 1-3) Amlodipine Besylate (Amlodipine Besylate 5 Mg Tablet) 5 mg PO BID [facility]; Protocol Last Admin: 12/26/21 08:29 Dose: 5 mg Documented By: JUAREZ Atorvastatin Calcium (Atorvastatin Calcium 10 Mg Tablet) 10 mg PO BEDTIME [facility] Last Admin: 12/25/21 19:55 Dose: 10 mg Documented By: NAUMOC Calcium Carbonate (Calcium Carbonate 500 Mg Tablet) 1,000 mg PO BID [facility] Last Admin: 12/26/21 08:28 Dose: 1,000 mg Documented By: JUAREZ Carvedilol (Carvedilol 12.5 Mg Tablet) 12.5 mg PO BID [facility]; Protocol Last Admin: 12/26/21 08:29 Dose: 12.5 mg Documented By: JUAREZ Cyanocobalamin (Cyanocobalamin (Vitamin B-12) 1,000 Mcg Tablet) 1,000 mcg PO DAILY [facility] Last Admin: 12/26/21 08:29 Dose: 1,000 mcg Documented By: JUAREZ Dextrose (Dextrose 50 % 25 Gm/50 Ml Syringe) 25 gm IVPUSH Q15M PRN; Protocol PRN Reason: per Hypoglycemia Standing Ord. Dipyridamole/Aspirin (Aspirin/Dipyridamole Er 25/200 Cpmp.12hr) 1 cap PO BID [facility] Last Admin: 12/26/21 08:29 Dose: 1 cap Documented By: JUAREZ Docusate Sodium (Docusate Sodium 100 Mg Capsule) 100 mg PO DAILY [facility] Last Admin: 12/26/21 08:29 Dose: 100 mg Documented By: JUAREZ Famotidine (Famotidine 20 Mg Tablet) 20 mg PO BID [facility] Last Admin: 12/26/21 08:30 Dose: 20 mg Documented By: JUAREZ Glucose (Glucose Gel 15 Gm Gel..Gram.) 15 gm PO Q15M PRN; Protocol PRN Reason: per Hypoglycemia Standing Ord. Heparin Sodium (Porcine) (Heparin Sodium,Porcine 5,000 Unit/Ml Vial) 5,000 unit SUBCUT Q12H [facility] Last Admin: 12/26/21 11:44 Dose: 5,000 unit Documented By: JUAREZ Hydralazine HCl (Hydralazine Hcl 25 Mg Tablet) 25 mg PO TID [facility]; Protocol Last Admin: 12/26/21 08:30 Dose: 25 mg Documented By: JUAREZ Insulin Human Lispro (Insulin Lispro 100 Unit/Ml 3 Ml Vial) 0 unit SUBCUT QIDACHS [facility]; Protocol Last Admin: 12/26/21 11:43 Dose: 4 unit Documented By: JUAREZ Magnesium Oxide (Magnesium Oxide 400 Mg Tablet) 400 mg PO BID [facility] Last Admin: 12/26/21 08:30 Dose: 400 mg Documented By: JUAREZ Melatonin (Melatonin 3 Mg Tablet) 6 mg PO BEDTIME PRN PRN Reason: insomnia Multivitamins/Vitamin C (Multivitamin Tablet) 1 tab PO DAILY [facility] Last Admin: 12/26/21 08:30 Dose: 1 tab Documented By: JUAREZ Nystatin (Nystatin Powder 15 Gm Bottle) 1 appl TOPICAL BID [facility]; Protocol Last Admin: 12/26/21 11:45 Dose: 1 appl Documented By: JUAREZ Ondansetron HCl (Ondansetron Hcl 4 Mg/2 Ml Vial) 4 mg IVPUSH Q8H PRN PRN Reason: Nausea and Vomiting Ondansetron HCl (Ondansetron Hcl 4 Mg/2 Ml Vial) 4 mg IVPUSH ONCE PRN PRN Reason: Nausea and Vomiting Pharmacy Consult (Consult Rx Perform Med Rec) 1 each MISCELLANE ONCE PRN PRN Reason: Consult order Sodium Bicarbonate (Sodium Bicarbonate 650 Mg Tablet) 650 mg PO TID [facility] Last Admin: 12/26/21 08:29 Dose: 650 mg Documented By: JUAREZ Sodium Chloride (0.9 % Sodium Chloride Flush 3 Ml Syringe) 3 ml IVFLUSH QSHIFT [facility] Last Admin: 12/26/21 08:30 Dose: 3 ml Documented By: JUAREZ Tamsulosin HCl (Tamsulosin Hcl 0.4 Mg Capsule) 0.4 mg PO BEDTIME [facility] Last Admin: 12/25/21 19:56 Dose: 0.4 mg Documented By: PADMINI Vitamin D (Cholecalciferol (Vitamin D3) 25 Mcg Tablet) 50 mcg PO DAILY [facility] Last Admin: 12/26/21 08:30 Dose: 50 mcg Documented By: JUAREZ Zinc Sulfate (Zinc Sulfate 220 Mg Capsule) 220 mg PO DAILY [facility] Last Admin: 12/26/21 08:29 Dose: 220 mg Documented By: JUAREZ Labs CBC & Chem 7: 12/25/21 07:03 12/26/21 07:15 Labs: Laboratory Results - last 24 hr 12/25/21 12/26/21 12/26/21 19:34 07:15 07:33 Anion Gap 17 Estim Creat Clear Calc 8.9 Estimated GFR 10 POC Glucose 238 H 133 H Random Glucose 143 H Calcium 8.2 L 12/26/21 11:14 Anion Gap Estim Creat Clear Calc Estimated GFR POC Glucose 232 H Random Glucose Calcium Assessment and Plan (1) Metabolic encephalopathy: Status: Acute (2) Acute kidney injury: Status: Acute (3) Metabolic acidosis: Status: Acute Plan d#11 81 year-old man with CKD4, recurrent nephrolithiasis, colon CA s/p colostomy, essential HTN, DM2, and PTSD who presents today with worsening confusion with alternating lethargy and agitated delirium for the past 2 days.? Found to have ESTUARDO with serum creatinine up to 9.7 from baseline of 3, uremia with BUN of 128, and severe metabolic acidosis with serum bicarbonate of 6 and venous pH of 7.22. # ESTUARDO/CKD4 - Had cystoscopy 12/[address] Kang with the following procedures: Post Operative Diagnosis:? bilateral hydronephrosis, acute on chronic renal failure, pyelonephritis left side Procedure:? cystoscopy, left stent removal,? left retrograde,left renal pelvis aspiration, left stent placement, right retrograde,? right stent placement - SCr seems to have stabilized around 5.6 [prior baseline around 3]. question of whether L PCN would offer additional drainage- discuss with Urology + Nephrology and continue to monitor BMP - Urine culture is now showing enteroccoccus, yeast and strep-- per ID contamination/colonization, not true infection # hyperK - mild; give another dose SZC; recheck BMP in AM # severe metabolic acidosis - continue bicarbonate replacement # mild hypernatremia - resolved # metabolic encephalopathy - suspect due to uremia/ESTUARDO; may have toxic component from levofloxacin as well [he was prescribed this empirically for UTI as outpt]; resolved # hypoMg - due to renal wasting; resolved # hx CVA - restarted Aggrenox # HTN - continue carvedilol + hydralazine + amlodipine # DM2 - hold sitagliptin, give correction-dose lispro # VTE ppx: SCDs, restarted heparin and closely watch for hematuria # dispo: anticipate STR In my clinical judgment, the patient requires continued inpatient hospitalization for the following reasons: severe metabolic acidosis, ESTUARDO and may need acute dialysis Quality Stroke Does the patient have a stroke diagnosis?: No VTE Prior VTE?: No VTE Risk Level:: Medical - moderate - high VTE Device Contraindication: N/A - Device Ordered VTE Drug Contraindication: N/A - Med Ordered
[2021-12-26 14:51] VITALS: BP 132/62; PULSE 71; RESP 20; TEMP 36.4; O2SAT 97
[2021-12-26 16:21] LABS: Glucose, Whole Blood 228 mg/dL (60-115)
[2021-12-26 19:06] VITALS: BP 132/63; PULSE 73; RESP 17; TEMP 36.6; O2SAT 96
[2021-12-26 19:10] LABS: Osmolality Urine 369 mosm/kg (373-1093)
[2021-12-26 19:22] LABS: Creatinine Urine 74.11 mg/dL; Potassium Urine Random 24.1 mmol/L
[2021-12-26 19:38] LABS: Glucose, Whole Blood 170 mg/dL (60-115)
[2021-12-26] MEDS: Atorvastatin Calcium 10 MG TABLET PO (22:11)
[2021-12-26] MEDS: Tamsulosin HCL 0.4 MG CAPSULE PO (22:12)
[2021-12-27] VITALS: BP 136/72; PULSE 75; RESP 18; TEMP 36.6; O2SAT 98
[2021-12-27 03:55] VITALS: BP 161/76; PULSE 73; RESP 14; TEMP 36.9; O2SAT 97
[2021-12-27] MEDS: 0.9 % Sodium Chloride Flush 3 ML SYRINGE IVFLUSH ×3 (05:50→16:24)
[2021-12-27 06:37] LABS: Hematocrit 22.8 % (42.0-52.0); Hemoglobin 7.2 g/dl (14.0-18.0); Mean Corpuscular HGB Conc 31.6 g/dl (31.0-36.0); Mean Corpuscular Volume 85.4 fL (80.0-98.0); Mean Platelet Volume 10.6 fL (9.4-12.4); Platelet Count 240 X10*3/uL (160-400); Red Blood Count 2.67 X10*6/uL (4.60-5.80); Red Cell Distribution Width 17.6 % (11.0-16.0); White Blood Count 7.8 X10*3/uL (4.8-10.8)
[2021-12-27 07:33] LABS: Glucose, Whole Blood 124 mg/dL (60-115)
[2021-12-27] MEDS: Docusate Sodium 100 MG CAPSULE PO (07:59)
[2021-12-27] MEDS: Multivitamin TABLET 1 TAB PO (07:59)
[2021-12-27] MEDS: Cholecalciferol (Vitamin D3) 25 MCG TABLET 50 MCG PO (07:59)
[2021-12-27] MEDS: Cyanocobalamin (Vitamin B-12) 1,000 MCG TABLET 1000 MCG PO (07:59)
[2021-12-27] MEDS: Zinc Sulfate 220 MG CAPSULE PO (07:59)
[2021-12-27] MEDS: Famotidine 20 MG TABLET PO ×2 (07:59→20:19)
[2021-12-27] MEDS: Sodium Bicarbonate 650 MG TABLET PO ×3 (07:59→20:18)
[2021-12-27] MEDS: Magnesium Oxide 400 MG TABLET PO ×2 (07:59→20:19)
[2021-12-27 08:00] VITALS: BP 141/65; PULSE 74; RESP 18; TEMP 35.9; O2SAT 96
[2021-12-27] MEDS: carvediloL 12.5 MG TABLET PO (08:00)
[2021-12-27] MEDS: hydrALAZINE HCl 25 MG TABLET PO ×3 (08:00→20:19)
[2021-12-27] MEDS: amLODIPine Besylate 5 MG TABLET PO ×2 (08:00→20:19)
[2021-12-27] MEDS: Nystatin Powder 15 GM BOTTLE 1 APPL TOPICAL ×2 (08:01→22:37)
[2021-12-27 08:38] LABS: Anion Gap 16 (12-20); Blood Urea Nitrogen 75 mg/dL (9-16); Calcium 8.1 mg/dL (8.4-10.2); Carbon Dioxide 24 mmol/L (22-29); Chloride 108 mmol/L (96-108); Creatinine Clr Calc Pharmacy 9.2; Estimated Glomerular Filt Rate 10; Glucose Random 131 mg/dL (60-115); Sodium 143 mmol/L (135-145)
--- NOTE | 2021-12-27 10:19 | PM.PNNEP ---
Subjective Subjective Date of Service: 12/27/21 Interval history: Seen and examined, events noted Physical Exam Vital Signs: Vital Signs: Last Vital Signs Temp 96.6 F L 12/27/21 08:00 Pulse 74 12/27/21 08:00 Resp 18 12/27/21 08:00 BP 141/65 H 12/27/21 08:00 Pulse Ox 96 12/27/21 08:00 O2 Del Method 12/27/21 08:00 O2 Flow Rate 6 12/17/21 16:45 BMI result Body Mass Index 19.9 Const: Other: Obtunded. General: cooperative, healthy appearing, comfortable, no acute distress and confusion Nutritional Appearance: well nourished Orientation/consciousness: patient oriented x3 and confusion Limitations: no limitations HEENT: Other: Very dry mucous membranes Head: Yes normal to inspection and Yes atraumatic Ears: hearing grossly normal bilaterally and external ears normal General nose exam: Normal external nose present, no nasal discharge noted and no epistaxis Face and sinus: Yes normal facial exam, No abrasion and No laceration Mouth: Normal oral and palatal mucosa present, moist mucous membranes, no drooling and no muffled voice Eyes: Other: No scleral icterus. General: appearance normal, both eyes and all related structures Periorbital: periorbital findings normal Eyelids: Yes eyelids normal Conjunctivae: conjunctivae normal Pupils: Equal, round and reactive pupils present EOM: EOMs intact bilaterally Neck: Neck: Yes normal visual inspection, Yes full ROM, Yes no lymphadenopathy, Yes trachea midline and Yes supple Chest: Chest palpation & inspection: normal inspection of the chest Resp: Other: Tachypneic. CTAB otherwise Effort & Inspection: normal respiratory effort, able to speak in complete sentences and no respiratory distress Auscultation: clear to auscultation bilaterally and diminished lung sounds Cardio: Jugular venous distension: no JVD Rate: regular rate and tachycardic Rhythm: regular rhythm GI: Other: Ostomy in place Inspection: Yes normal to inspection Palpation (GI): Soft to palpation : Other: Non-tender bladder. Back/Spine/Pelvis: Cervical Spine: normal cervical lordosis Thoracic/Lumbar Spine: thoracic and lumbar spine normal to inspection Skin: General skin exam: no rashes or lesions noted Neuro: General: patient oriented x3, gait normal, tone normal, moves all extremities, confusion and Unable to assess gait Cranial nerves: Yes Equal, round and reactive pupils present Cognition (Neuro): abnormal cognition Gait exam (Neuro): Unable to assess gait Extrem: Other: No edema General: Yes normal to inspection, Yes full ROM, Yes capillary refill normal and Yes no pedal edema Psych: Other: confusion,delirium,picking at clothing Appearance: grossly normal Mental Status: mental status grossly normal Affect: normal affect Attitude: cooperative Thought process: Normal thought process present Thought content: Normal thought content present Insight: Good insight present (Psych) Objective Data Labs CBC & Chem 7: 12/27/21 05:51 12/27/21 05:51 Labs: Laboratory Results - last 24 hr 12/26/21 12/26/21 12/26/21 11:14 16:16 19:32 WBC RBC Hgb Hct MCV MCH MCHC RDW Plt Count MPV Absolute Nucleated RBC Nucleated RBC % (auto) Sodium Potassium Chloride Carbon Dioxide Anion Gap BUN Creatinine Estim Creat Clear Calc Estimated GFR POC Glucose 232 H 228 H 170 H Random Glucose Calcium Urine Osmolality Ur Random Sodium Ur Random Potassium Urine Creatinine 12/26/21 12/26/21 12/27/21 Unknown Unknown 05:51 WBC 7.8 RBC 2.67 L Hgb 7.2 L Hct 22.8 L MCV 85.4 MCH 27.0 MCHC 31.6 RDW 17.6 H Plt Count 240 MPV 10.6 Absolute Nucleated RBC 0.000 Nucleated RBC % (auto) 0.0 Sodium Potassium Chloride Carbon Dioxide Anion Gap BUN Creatinine Estim Creat Clear Calc Estimated GFR POC Glucose Random Glucose Calcium Urine Osmolality 369 L Ur Random Sodium 60.0 Ur Random Potassium 24.1 Urine Creatinine 74.11 12/27/21 12/27/21 05:51 07:29 WBC RBC Hgb Hct MCV MCH MCHC RDW Plt Count MPV Absolute Nucleated RBC Nucleated RBC % (auto) Sodium 143 Potassium 5.0 Chloride 108 Carbon Dioxide 24 Anion Gap 16 BUN 75 H Creatinine 5.38 H* Estim Creat Clear Calc 9.2 Estimated GFR 10 POC Glucose 124 H Random Glucose 131 H Calcium 8.1 L Urine Osmolality Ur Random Sodium Ur Random Potassium Urine Creatinine Microbiology Microbiology Results: Microbiology 12/17/21 Unknown Urine Other - Kidney Left Urine Culture - Final Enterococcus raffinosus Lalitha albicans 12/16/21 22:37 Urine clean catch - Urine cowart top Urine Culture - Final Procedures Date of Service Date of Service: 12/27/21 Assessment & Plan Assessment and plan (1) Metabolic encephalopathy: Status: Acute (2) Acute kidney injury: Status: Acute Assessment and Plan: Mr. 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 1. ESTUARDO: multifact including cont OBS UROPATHY and multifact ATN; s/p christine stent replacement and SCr initially decr 9.6 to 5. 7 but SCr now remains STUCK at 5.7 repeat renal U/S noted decr L hydro but still needs PCN tube and possible WHIPPLE ( uro evaluating this); no indication for SENIOR CLINICAL CONSULTANT yet 2. CKD 4: BSL SCr 3.0 3. Anemia: Fe/EPo def 4. NAGMA: d/t ESTUARDO/CKD; improved on suppl REC: uro working with IRre: L PCN tube; IV Fe and epo as ordered; cont PO NaHCO3 as oredered No indication for SENIOR CLINICAL CONSULTANT yet --protect non-dominat arm for future AVF (Patient's expressed concern to Dr Haynes that Mr. Mireles outpatient team is not able to adequately follow his progressive renal failure She expressed wishes to transfer care to [facility] through [place]. She had notified? his old outpatient renal team) (3) Metabolic acidosis: Status: Acute (4) Pyelonephritis: Status: Acute Plan d#11 81 year-old man with CKD4, recurrent nephrolithiasis, colon CA s/p colostomy, essential HTN, DM2, and PTSD who presents today with worsening confusion with alternating lethargy and agitated delirium for the past 2 days.? Found to have ESTUARDO with serum creatinine up to 9.7 from baseline of 3, uremia with BUN of 128, and severe metabolic acidosis with serum bicarbonate of 6 and venous pH of 7.22. # ESTUARDO/CKD4 - Had cystoscopy 12/[address] Kang with the following procedures: Post Operative Diagnosis:? bilateral hydronephrosis, acute on chronic renal failure, pyelonephritis left side Procedure:? cystoscopy, left stent removal,? left retrograde,left renal pelvis aspiration, left stent placement, right retrograde,? right stent placement - SCr seems to have stabilized around 5.6 [prior baseline around 3]. question of whether L PCN would offer additional drainage- discuss with Urology + Nephrology and continue to monitor BMP - Urine culture is now showing enteroccoccus, yeast and strep-- per ID contamination/colonization, not true infection # hyperK - mild; give another dose SZC; recheck BMP in AM # severe metabolic acidosis - continue bicarbonate replacement # mild hypernatremia - resolved # metabolic encephalopathy - suspect due to uremia/ESTUARDO; may have toxic component from levofloxacin as well [he was prescribed this empirically for UTI as outpt]; resolved # hypoMg - due to renal wasting; resolved # hx CVA - restarted Aggrenox # HTN - continue carvedilol + hydralazine + amlodipine # DM2 - hold sitagliptin, give correction-dose lispro # VTE ppx: SCDs, restarted heparin and closely watch for hematuria # dispo: anticipate STR In my clinical judgment, the patient requires continued inpatient hospitalization for the following reasons: severe metabolic acidosis, ESTUARDO and may need acute dialysis Time Spent With Patient Time: Total time spent is greater than 50% in coordination of care (as documented) at patient's floor/unit and/or counseling patient: Progress Note: Quality Stroke Does the patient have a stroke diagnosis?: No
[2021-12-27 11:29] LABS: Glucose, Whole Blood 197 mg/dL (60-115)
[2021-12-27 11:57] VITALS: BP 107/54; PULSE 86; RESP 20; TEMP 37.1; O2SAT 97
[2021-12-27] MEDS: Heparin Sodium,Porcine 5,000 UNIT/ML VIAL 5000 UNIT SUBCUT (11:57)
[2021-12-27] MEDS: Insulin Lispro 100 UNIT/ML 3 ML VIAL SUBCUT ×3 (11:58→20:40)
--- NOTE | 2021-12-27 15:10 | P.PNIM_ITS ---
Subjective Subjective Date of Service: 12/27/21 Interval History: seen and examined this morning follow up for renal failure awake and alert, no specific complaints this morning Review of Systems Review of Systems: Yes all other systems are reviewed and are negative Constitutional Constitutional: Denies chills and Denies fever(s) Cardiovascular Cardiovascular: Denies chest pain, Denies palpitations and Denies dyspnea Respiratory Respiratory: Denies cough and Denies dyspnea Gastrointestinal Gastrointestinal: Denies abdominal pain, Denies nausea and Denies vomiting Endocrine Endocrine: Denies palpitations Physical Exam Vital Signs: Vital Signs: Last Vital Signs Temp 98.8 F 12/27/21 11:57 Pulse 86 12/27/21 11:57 Resp 20 12/27/21 11:57 BP 107/54 L 12/27/21 11:57 Pulse Ox 97 12/27/21 11:57 O2 Del Method 12/27/21 11:57 O2 Flow Rate 6 12/17/21 16:45 BMI result Body Mass Index 19.9 Const: General: cooperative, comfortable, alert and awake Nutritional Appearance: thin Resp: Effort & Inspection: normal respiratory effort and able to speak in complete sentences Auscultation: clear to auscultation bilaterally Cardio: Rate: regular rate Heart sounds: S1 normal heart sound present and S2 normal heart sound present GI: Inspection: No distended Palpation (GI): Soft to palpation : Other: bain in place draining clear urine Neuro: Other: grossly nonfocal Extrem: General: Yes no pedal edema Objective Data Active Medications Acetaminophen (Acetaminophen 325 Mg Tablet) 650 mg PO Q6H PRN PRN Reason: Pain, Mild (Pain Scale 1-3) Last Admin: 12/25/21 15:43 Dose: 650 mg Documented By: DEMETRIUS Acetaminophen (Acetaminophen 325 Mg Tablet) 650 mg PO ONCE PRN PRN Reason: Pain, Mild (Pain Scale 1-3) Amlodipine Besylate (Amlodipine Besylate 5 Mg Tablet) 5 mg PO BID [facility]; Protocol Last Admin: 12/27/21 08:00 Dose: 5 mg Documented By: JUAREZ Atorvastatin Calcium (Atorvastatin Calcium 10 Mg Tablet) 10 mg PO BEDTIME [facility] Last Admin: 12/26/21 22:11 Dose: 10 mg Documented By: HOMAR Calcium Carbonate (Calcium Carbonate 500 Mg Tablet) 1,000 mg PO BID [facility] Last Admin: 12/27/21 07:59 Dose: 1,000 mg Documented By: JUAREZ Carvedilol (Carvedilol 12.5 Mg Tablet) 12.5 mg PO BID [facility]; Protocol Last Admin: 12/27/21 08:00 Dose: 12.5 mg Documented By: JUAREZ Cyanocobalamin (Cyanocobalamin (Vitamin B-12) 1,000 Mcg Tablet) 1,000 mcg PO DAILY [facility] Last Admin: 12/27/21 07:59 Dose: 1,000 mcg Documented By: JUAREZ Dextrose (Dextrose 50 % 25 Gm/50 Ml Syringe) 25 gm IVPUSH Q15M PRN; Protocol PRN Reason: per Hypoglycemia Standing Ord. Dipyridamole/Aspirin (Aspirin/Dipyridamole Er 25/200 Cpmp.12hr) 1 cap PO BID [facility] Last Admin: 12/26/21 08:29 Dose: 1 cap Documented By: JUAREZ Docusate Sodium (Docusate Sodium 100 Mg Capsule) 100 mg PO DAILY [facility] Last Admin: 12/27/21 07:59 Dose: 100 mg Documented By: JUAREZ Famotidine (Famotidine 20 Mg Tablet) 20 mg PO BID [facility] Last Admin: 12/27/21 07:59 Dose: 20 mg Documented By: JUAREZ Glucose (Glucose Gel 15 Gm Gel..Gram.) 15 gm PO Q15M PRN; Protocol PRN Reason: per Hypoglycemia Standing Ord. Heparin Sodium (Porcine) (Heparin Sodium,Porcine 5,000 Unit/Ml Vial) 5,000 unit SUBCUT Q12H [facility] Last Admin: 12/27/21 11:57 Dose: 5,000 unit Documented By: JUAREZ Hydralazine HCl (Hydralazine Hcl 25 Mg Tablet) 25 mg PO TID [facility]; Protocol Last Admin: 12/27/21 08:00 Dose: 25 mg Documented By: JUAREZ Insulin Human Lispro (Insulin Lispro 100 Unit/Ml 3 Ml Vial) 0 unit SUBCUT QIDACHS [facility]; Protocol Last Admin: 12/27/21 11:58 Dose: 2 unit Documented By: JUAREZ Magnesium Oxide (Magnesium Oxide 400 Mg Tablet) 400 mg PO BID [facility] Last Admin: 12/27/21 07:59 Dose: 400 mg Documented By: JUAREZ Melatonin (Melatonin 3 Mg Tablet) 6 mg PO BEDTIME PRN PRN Reason: insomnia Multivitamins/Vitamin C (Multivitamin Tablet) 1 tab PO DAILY [facility] Last Admin: 12/27/21 07:59 Dose: 1 tab Documented By: JUAREZ Nystatin (Nystatin Powder 15 Gm Bottle) 1 appl TOPICAL BID [facility]; Protocol Last Admin: 12/27/21 08:01 Dose: 1 appl Documented By: JUAREZ Ondansetron HCl (Ondansetron Hcl 4 Mg/2 Ml Vial) 4 mg IVPUSH Q8H PRN PRN Reason: Nausea and Vomiting Ondansetron HCl (Ondansetron Hcl 4 Mg/2 Ml Vial) 4 mg IVPUSH ONCE PRN PRN Reason: Nausea and Vomiting Pharmacy Consult (Consult Rx Perform Med Rec) 1 each MISCELLANE ONCE PRN PRN Reason: Consult order Sodium Bicarbonate (Sodium Bicarbonate 650 Mg Tablet) 650 mg PO TID [facility] Last Admin: 12/27/21 07:59 Dose: 650 mg Documented By: JUAREZ Sodium Chloride (0.9 % Sodium Chloride Flush 3 Ml Syringe) 3 ml IVFLUSH QSHIFT [facility] Last Admin: 12/27/21 08:00 Dose: 3 ml Documented By: JUAREZ Tamsulosin HCl (Tamsulosin Hcl 0.4 Mg Capsule) 0.4 mg PO BEDTIME [facility] Last Admin: 12/26/21 22:12 Dose: 0.4 mg Documented By: HOMAR Vitamin D (Cholecalciferol (Vitamin D3) 25 Mcg Tablet) 50 mcg PO DAILY [facility] Last Admin: 12/27/21 07:59 Dose: 50 mcg Documented By: JUAREZ Zinc Sulfate (Zinc Sulfate 220 Mg Capsule) 220 mg PO DAILY [facility] Last Admin: 12/27/21 07:59 Dose: 220 mg Documented By: JUAREZ Labs CBC & Chem 7: 12/27/21 05:51 12/27/21 05:51 Labs: Laboratory Results - last 24 hr 12/26/21 12/26/21 12/26/21 16:16 19:32 Unknown MCV MCH MCHC RDW Plt Count MPV Absolute Nucleated RBC Nucleated RBC % (auto) Anion Gap Estim Creat Clear Calc Estimated GFR POC Glucose 228 H 170 H Random Glucose Calcium Urine Osmolality Ur Random Sodium 60.0 Ur Random Potassium 24.1 Urine Creatinine 74.11 12/26/21 12/27/21 12/27/21 Unknown 05:51 05:51 MCV 85.4 MCH 27.0 MCHC 31.6 RDW 17.6 H Plt Count 240 MPV 10.6 Absolute Nucleated RBC 0.000 Nucleated RBC % (auto) 0.0 Anion Gap 16 Estim Creat Clear Calc 9.2 Estimated GFR 10 POC Glucose Random Glucose 131 H Calcium 8.1 L Urine Osmolality 369 L Ur Random Sodium Ur Random Potassium Urine Creatinine 12/27/21 12/27/21 07:29 11:21 MCV MCH MCHC RDW Plt Count MPV Absolute Nucleated RBC Nucleated RBC % (auto) Anion Gap Estim Creat Clear Calc Estimated GFR POC Glucose 124 H 197 H Random Glucose Calcium Urine Osmolality Ur Random Sodium Ur Random Potassium Urine Creatinine Assessment and Plan (1) Acute kidney injury: Status: Acute (2) CKD (chronic kidney disease) stage 4, GFR 15-29 ml/min: Status: Acute Plan d#11 81 year-old man with CKD4, recurrent nephrolithiasis, colon CA s/p colostomy, essential HTN, DM2, and PTSD who presents today with worsening confusion with alternating lethargy and agitated delirium for the past 2 days.? Found to have ESTUARDO with serum creatinine up to 9.7 from baseline of 3, uremia with BUN of 128, and severe metabolic acidosis with serum bicarbonate of 6 and venous pH of 7.22. # ESTUARDO on CKD4 Had cystoscopy 12/[address] Kang with the following procedures: Post Operative Diagnosis:? bilateral hydronephrosis, acute on chronic renal failure, pyelonephritis left side Procedure:? cystoscopy, left stent removal,? left retrograde,left renal pelvis aspiration, left stent placement, right retrograde,? right stent placement SCr seems to have stabilized around 5.6 [prior baseline around 3] -plan for nephrostomy tube Sunday 12/31 if no improvement by then - aggrenox on hold -Urine culture is now showing enteroccoccus, yeast and strep-- per ID contamination/colonization, not true infection -nephrology, urology following # chronic normocytic anemia r/t chronic dz received IV iron 12/24 follow CBC # hyperK - mild; improved with SZC # severe metabolic acidosis improved - continue bicarbonate replacement # mild hypernatremia - resolved # metabolic encephalopathy - suspect due to uremia/ESTUARDO; may have toxic component from levofloxacin as well [he was prescribed this empirically for UTI as outpt]; resolved # hypoMg - due to renal wasting; resolved # hx CVA - Aggrenox on hold for possible nephrostomy tube placement on Friday # HTN - continue carvedilol + hydralazine + amlodipine # DM2 - hold sitagliptin, give correction-dose lispro # VTE ppx: SCDs, restarted heparin and closely watch for hematuria # dispo: anticipate STR attending - dr. mercer In my clinical judgment, the patient requires continued inpatient hospitalization for the following reasons: severe metabolic acidosis, ESTUARDO and may need acute dialysis Quality Stroke Does the patient have a stroke diagnosis?: No VTE Prior VTE?: No VTE Risk Level:: Medical - moderate - high VTE Device Contraindication: N/A - Device Ordered VTE Drug Contraindication: N/A - Med Ordered
[2021-12-27 15:14] VITALS: BP 118/63; PULSE 72; RESP 12; TEMP 36.5; O2SAT 96
[2021-12-27 16:12] LABS: Glucose, Whole Blood 200 mg/dL (60-115)
[2021-12-27 19:01] VITALS: BP 147/68; PULSE 72; RESP 16; TEMP 36.8; O2SAT 96
[2021-12-27 20:17] LABS: Glucose, Whole Blood 187 mg/dL (60-115)
[2021-12-27] MEDS: Atorvastatin Calcium 10 MG TABLET PO (20:19)
[2021-12-27] MEDS: Tamsulosin HCL 0.4 MG CAPSULE PO (20:19)
[2021-12-28] VITALS (7 sets, daily range): BP systolic 131–164; BP diastolic 54–80; PULSE 68–89; RESP 16–20; TEMP 36.1–37.1; O2SAT 95–98
[2021-12-28] MEDS: Heparin Sodium,Porcine 5,000 UNIT/ML VIAL 5000 UNIT SUBCUT ×3 (01:17→22:40)
[2021-12-28] MEDS: 0.9 % Sodium Chloride Flush 3 ML SYRINGE IVFLUSH ×3 (01:17→16:48)
[2021-12-28 06:53] LABS: Hematocrit 22.7 % (42.0-52.0); Hemoglobin 7.1 g/dl (14.0-18.0); Mean Corpuscular HGB Conc 31.3 g/dl (31.0-36.0); Mean Corpuscular Hemoglobin 27.1 pg (27.0-33.0); Mean Corpuscular Volume 86.6 fL (80.0-98.0); Mean Platelet Volume 10.1 fL (9.4-12.4); Platelet Count 250 X10*3/uL (160-400); Red Blood Count 2.62 X10*6/uL (4.60-5.80); Red Cell Distribution Width 17.4 % (11.0-16.0)
[2021-12-28 07:31] LABS: Glucose, Whole Blood 105 mg/dL (60-115)
[2021-12-28 07:34] LABS: Anion Gap 16 (12-20); Blood Urea Nitrogen 82 mg/dL (9-16); Calcium 8.1 mg/dL (8.4-10.2); Carbon Dioxide 21 mmol/L (22-29); Chloride 108 mmol/L (96-108); Creatinine Clr Calc Pharmacy 9.8; Estimated Glomerular Filt Rate 11; Glucose Random 122 mg/dL (60-115); Potassium 5.2 mmol/L (3.3-5.1); Sodium 140 mmol/L (135-145)
[2021-12-28] MEDS: Zinc Sulfate 220 MG CAPSULE PO (08:29)
[2021-12-28] MEDS: amLODIPine Besylate 5 MG TABLET PO ×2 (08:29→22:44)
[2021-12-28] MEDS: Cyanocobalamin (Vitamin B-12) 1,000 MCG TABLET 1000 MCG PO (08:29)
[2021-12-28] MEDS: Docusate Sodium 100 MG CAPSULE PO (08:29)
[2021-12-28] MEDS: Sodium Bicarbonate 650 MG TABLET PO ×3 (08:29→22:39)
[2021-12-28] MEDS: hydrALAZINE HCl 25 MG TABLET PO ×3 (08:30→22:44)
[2021-12-28] MEDS: Famotidine 20 MG TABLET PO ×2 (08:30→22:39)
[2021-12-28] MEDS: Cholecalciferol (Vitamin D3) 25 MCG TABLET 50 MCG PO (08:30)
[2021-12-28] MEDS: carvediloL 12.5 MG TABLET PO ×2 (08:30→22:44)
[2021-12-28] MEDS: Multivitamin TABLET 1 TAB PO (08:30)
[2021-12-28] MEDS: Magnesium Oxide 400 MG TABLET PO ×2 (08:50→22:39)
[2021-12-28] MEDS: Nystatin Powder 15 GM BOTTLE 1 APPL TOPICAL (08:50)
--- NOTE | 2021-12-28 11:07 | MHC.CLN ---
F/U PO INTAKE 100% DIET RX: 2000DM-APPROPRIATE PT RECEIVING ENSURE PLUS HIGH PROTEIN BID TO INCREASE KCALS PROVIDES 700KCALS, 40G PROTEIN CONTINUE TO MONITOR PO INTAKE CLOSELY RECOMMEND OBTAINING CURRENT WEIGHT
--- NOTE | 2021-12-28 11:20 | MHC.CM.PN ---
Per ROUNDS discussion, Patient will be getting a Nephrostomy Tube on Friday and is therefor not yet medically cleared for dc. Home vs STR is the plan and CM will follow.
[2021-12-28 11:38] LABS: Glucose, Whole Blood 184 mg/dL (60-115)
[2021-12-28] MEDS: Insulin Lispro 100 UNIT/ML 3 ML VIAL SUBCUT ×3 (11:55→22:39)
--- NOTE | 2021-12-28 12:29 | HO.PM.IMPN ---
Subjective Subjective Date of Service: 12/28/21 Interval History: seen and examined this morning follow up for ESTUARDO feeling ok this morning, no specific complaints denies abdominal pain, nausea or vomiting Review of Systems Review of Systems: Yes all other systems are reviewed and are negative Constitutional Constitutional: Denies chills and Denies fever(s) Cardiovascular Cardiovascular: Denies chest pain, Denies palpitations and Denies dyspnea Respiratory Respiratory: Denies cough and Denies dyspnea Gastrointestinal Gastrointestinal: Denies abdominal pain, Denies nausea and Denies vomiting Endocrine Endocrine: Denies palpitations Physical Exam Vital Signs: Vital Signs: Last Vital Signs Temp 97.8 F 12/28/21 11:41 Pulse 68 12/28/21 11:41 Resp 18 12/28/21 11:41 BP 131/54 L 12/28/21 11:41 Pulse Ox 97 12/28/21 11:41 O2 Del Method 12/28/21 11:41 O2 Flow Rate 6 12/17/21 16:45 BMI result Body Mass Index 19.9 Const: General: cooperative, comfortable, alert and awake Nutritional Appearance: thin Resp: Effort & Inspection: normal respiratory effort and able to speak in complete sentences Auscultation: clear to auscultation bilaterally Cardio: Rate: regular rate Heart sounds: S1 normal heart sound present and S2 normal heart sound present GI: Other: colostomy present Inspection: No distended Palpation (GI): Soft to palpation : Other: bain in place draining clear urine Neuro: Other: grossly nonfocal Extrem: General: Yes no pedal edema Objective Data Active Medications Acetaminophen (Acetaminophen 325 Mg Tablet) 650 mg PO Q6H PRN PRN Reason: Pain, Mild (Pain Scale 1-3) Last Admin: 12/25/21 15:43 Dose: 650 mg Documented By: DEMETRIUS Acetaminophen (Acetaminophen 325 Mg Tablet) 650 mg PO ONCE PRN PRN Reason: Pain, Mild (Pain Scale 1-3) Amlodipine Besylate (Amlodipine Besylate 5 Mg Tablet) 5 mg PO BID [facility]; Protocol Last Admin: 12/28/21 08:29 Dose: 5 mg Documented By: ALEE Atorvastatin Calcium (Atorvastatin Calcium 10 Mg Tablet) 10 mg PO BEDTIME [facility] Last Admin: 12/27/21 20:19 Dose: 10 mg Documented By: MICHELINE Calcium Carbonate (Calcium Carbonate 500 Mg Tablet) 1,000 mg PO BID [facility] Last Admin: 12/28/21 08:29 Dose: 1,000 mg Documented By: ALEE Carvedilol (Carvedilol 12.5 Mg Tablet) 12.5 mg PO BID [facility]; Protocol Last Admin: 12/28/21 08:30 Dose: 12.5 mg Documented By: ALEE Cyanocobalamin (Cyanocobalamin (Vitamin B-12) 1,000 Mcg Tablet) 1,000 mcg PO DAILY [facility] Last Admin: 12/28/21 08:29 Dose: 1,000 mcg Documented By: ALEE Dextrose (Dextrose 50 % 25 Gm/50 Ml Syringe) 25 gm IVPUSH Q15M PRN; Protocol PRN Reason: per Hypoglycemia Standing Ord. Dipyridamole/Aspirin (Aspirin/Dipyridamole Er 25/200 Cpmp.12hr) 1 cap PO BID [facility] Last Admin: 12/26/21 08:29 Dose: 1 cap Documented By: JUAREZ Docusate Sodium (Docusate Sodium 100 Mg Capsule) 100 mg PO DAILY [facility] Last Admin: 12/28/21 08:29 Dose: 100 mg Documented By: ALEE Famotidine (Famotidine 20 Mg Tablet) 20 mg PO BID [facility] Last Admin: 12/28/21 08:30 Dose: 20 mg Documented By: ALEE Glucose (Glucose Gel 15 Gm Gel..Gram.) 15 gm PO Q15M PRN; Protocol PRN Reason: per Hypoglycemia Standing Ord. Heparin Sodium (Porcine) (Heparin Sodium,Porcine 5,000 Unit/Ml Vial) 5,000 unit SUBCUT Q12H [facility] Last Admin: 12/28/21 11:55 Dose: 5,000 unit Documented By: ALEE Hydralazine HCl (Hydralazine Hcl 25 Mg Tablet) 25 mg PO TID [facility]; Protocol Last Admin: 12/28/21 08:30 Dose: 25 mg Documented By: ALEE Insulin Human Lispro (Insulin Lispro 100 Unit/Ml 3 Ml Vial) 0 unit SUBCUT QIDACHS [facility]; Protocol Last Admin: 12/28/21 11:55 Dose: 2 unit Documented By: ALEE Magnesium Oxide (Magnesium Oxide 400 Mg Tablet) 400 mg PO BID [facility] Last Admin: 12/28/21 08:50 Dose: 400 mg Documented By: ALEE Melatonin (Melatonin 3 Mg Tablet) 6 mg PO BEDTIME PRN PRN Reason: insomnia Multivitamins/Vitamin C (Multivitamin Tablet) 1 tab PO DAILY [facility] Last Admin: 12/28/21 08:30 Dose: 1 tab Documented By: ALEE Nystatin (Nystatin Powder 15 Gm Bottle) 1 appl TOPICAL BID [facility]; Protocol Last Admin: 12/28/21 08:50 Dose: 1 appl Documented By: ALEE Ondansetron HCl (Ondansetron Hcl 4 Mg/2 Ml Vial) 4 mg IVPUSH Q8H PRN PRN Reason: Nausea and Vomiting Ondansetron HCl (Ondansetron Hcl 4 Mg/2 Ml Vial) 4 mg IVPUSH ONCE PRN PRN Reason: Nausea and Vomiting Pharmacy Consult (Consult Rx Perform Med Rec) 1 each MISCELLANE ONCE PRN PRN Reason: Consult order Sodium Bicarbonate (Sodium Bicarbonate 650 Mg Tablet) 650 mg PO TID [facility] Last Admin: 12/28/21 08:29 Dose: 650 mg Documented By: ALEE Sodium Chloride (0.9 % Sodium Chloride Flush 3 Ml Syringe) 3 ml IVFLUSH QSHIFT [facility] Last Admin: 12/28/21 08:30 Dose: 3 ml Documented By: ALEE Tamsulosin HCl (Tamsulosin Hcl 0.4 Mg Capsule) 0.4 mg PO BEDTIME [facility] Last Admin: 12/27/21 20:19 Dose: 0.4 mg Documented By: MICHELINE Vitamin D (Cholecalciferol (Vitamin D3) 25 Mcg Tablet) 50 mcg PO DAILY [facility] Last Admin: 12/28/21 08:30 Dose: 50 mcg Documented By: ALEE Zinc Sulfate (Zinc Sulfate 220 Mg Capsule) 220 mg PO DAILY [facility] Last Admin: 12/28/21 08:29 Dose: 220 mg Documented By: ALEE Labs CBC & Chem 7: 12/28/21 06:28 12/28/21 06:28 Labs: Laboratory Results - last 24 hr 12/27/21 12/27/21 12/28/21 16:08 20:13 06:28 MCV 86.6 MCH 27.1 MCHC 31.3 RDW 17.4 H Plt Count 250 MPV 10.1 Absolute Nucleated RBC 0.000 Nucleated RBC % (auto) 0.0 Anion Gap Estim Creat Clear Calc Estimated GFR POC Glucose 200 H 187 H Random Glucose Calcium 12/28/21 12/28/21 12/28/21 06:28 07:27 11:30 MCV MCH MCHC RDW Plt Count MPV Absolute Nucleated RBC Nucleated RBC % (auto) Anion Gap 16 Estim Creat Clear Calc 9.8 Estimated GFR 11 POC Glucose 105 184 H Random Glucose 122 H Calcium 8.1 L Assessment and Plan (1) Acute kidney injury: Status: Acute Plan d#11 81 year-old man with CKD4, recurrent nephrolithiasis, colon CA s/p colostomy, essential HTN, DM2, and PTSD who presents today with worsening confusion with alternating lethargy and agitated delirium for the past 2 days.? Found to have ESTUARDO with serum creatinine up to 9.7 from baseline of 3, uremia with BUN of 128, and severe metabolic acidosis with serum bicarbonate of 6 and venous pH of 7.22. ESTUARDO on CKD4 Had cystoscopy 12/[address] Kang with the following procedures: Post Operative Diagnosis:? bilateral hydronephrosis, acute on chronic renal failure, pyelonephritis left side Procedure:? cystoscopy, left stent removal,? left retrograde,left renal pelvis aspiration, left stent placement, right retrograde,? right stent placement SCr seems to have stabilized around 5.6 [prior baseline around 3] -plan for nephrostomy tube Sunday 12/31 if no improvement by then - aggrenox on hold -Urine culture is now showing enteroccoccus, yeast and strep-- per ID contamination/colonization, not true infection -nephrology, urology following chronic normocytic anemia r/t chronic dz received IV iron 12/24 procrit to be ordered by nephrology follow CBC hyperK mild follow BMP severe metabolic acidosis improved - continue bicarbonate replacement mild hypernatremia - resolved metabolic encephalopathy - suspect due to uremia/ESTUARDO; may have toxic component from levofloxacin as well [he was prescribed this empirically for UTI as outpt]; resolved hypoMg - due to renal wasting; resolved hx CVA - Aggrenox on hold for possible nephrostomy tube placement on Friday HTN - continue carvedilol + hydralazine + amlodipine DM2 - hold sitagliptin, give correction-dose lispro VTE ppx: SCDs, restarted heparin and closely watch for hematuria dispo: anticipate STR attending - dr. mercer In my clinical judgment, the patient requires continued inpatient hospitalization for the following reasons: severe metabolic acidosis, ESTUARDO Quality Stroke Does the patient have a stroke diagnosis?: No VTE Prior VTE?: No VTE Risk Level:: Medical - moderate - high VTE Device Contraindication: N/A - Device Ordered VTE Drug Contraindication: N/A - Med Ordered
--- NOTE | 2021-12-28 13:43 | PM.PNNEP ---
Subjective Subjective Date of Service: 12/28/21 Interval history: seen and examined this morning follow up for ESTUARDO feeling ok this morning, no specific complaints denies abdominal pain, nausea or vomiting Physical Exam Vital Signs: Vital Signs: Last Vital Signs Temp 97.8 F 12/28/21 11:41 Pulse 68 12/28/21 11:41 Resp 18 12/28/21 11:41 BP 131/54 L 12/28/21 11:41 Pulse Ox 97 12/28/21 11:41 O2 Del Method 12/28/21 11:41 O2 Flow Rate 6 12/17/21 16:45 BMI result Body Mass Index 19.9 Const: Other: Obtunded. General: cooperative, healthy appearing, comfortable, no acute distress, alert, awake and confusion Nutritional Appearance: well nourished and thin Orientation/consciousness: patient oriented x3 and confusion Limitations: no limitations HEENT: Other: Very dry mucous membranes Head: Yes normal to inspection and Yes atraumatic Ears: hearing grossly normal bilaterally and external ears normal General nose exam: Normal external nose present, no nasal discharge noted and no epistaxis Face and sinus: Yes normal facial exam, No abrasion and No laceration Mouth: Normal oral and palatal mucosa present, moist mucous membranes, no drooling and no muffled voice Eyes: Other: No scleral icterus. General: appearance normal, both eyes and all related structures Periorbital: periorbital findings normal Eyelids: Yes eyelids normal Conjunctivae: conjunctivae normal Pupils: Equal, round and reactive pupils present EOM: EOMs intact bilaterally Neck: Neck: Yes normal visual inspection, Yes full ROM, Yes no lymphadenopathy, Yes trachea midline and Yes supple Chest: Chest palpation & inspection: normal inspection of the chest Resp: Other: Tachypneic. CTAB otherwise Effort & Inspection: normal respiratory effort, able to speak in complete sentences and no respiratory distress Auscultation: clear to auscultation bilaterally and diminished lung sounds Cardio: Jugular venous distension: no JVD Rate: regular rate and tachycardic Rhythm: regular rhythm Heart sounds: S1 normal heart sound present and S2 normal heart sound present GI: Other: colostomy present Inspection: Yes normal to inspection and No distended Palpation (GI): Soft to palpation : Other: bain in place draining clear urine Back/Spine/Pelvis: Cervical Spine: normal cervical lordosis Thoracic/Lumbar Spine: thoracic and lumbar spine normal to inspection Skin: General skin exam: no rashes or lesions noted Neuro: Other: grossly nonfocal General: patient oriented x3, gait normal, tone normal, moves all extremities, confusion and Unable to assess gait Cranial nerves: Yes Equal, round and reactive pupils present Cognition (Neuro): abnormal cognition Gait exam (Neuro): Unable to assess gait Extrem: Other: No edema General: Yes normal to inspection, Yes full ROM, Yes capillary refill normal and Yes no pedal edema Psych: Other: confusion,delirium,picking at clothing Appearance: grossly normal Mental Status: mental status grossly normal Affect: normal affect Attitude: cooperative Thought process: Normal thought process present Thought content: Normal thought content present Insight: Good insight present (Psych) Objective Data Labs CBC & Chem 7: 12/28/21 06:28 12/28/21 06:28 Labs: Laboratory Results - last 24 hr 12/27/21 12/27/21 12/28/21 16:08 20:13 06:28 WBC 7.0 RBC 2.62 L Hgb 7.1 L Hct 22.7 L MCV 86.6 MCH 27.1 MCHC 31.3 RDW 17.4 H Plt Count 250 MPV 10.1 Absolute Nucleated RBC 0.000 Nucleated RBC % (auto) 0.0 Sodium Potassium Chloride Carbon Dioxide Anion Gap BUN Creatinine Estim Creat Clear Calc Estimated GFR POC Glucose 200 H 187 H Random Glucose Calcium 12/28/21 12/28/21 12/28/21 06:28 07:27 11:30 WBC RBC Hgb Hct MCV MCH MCHC RDW Plt Count MPV Absolute Nucleated RBC Nucleated RBC % (auto) Sodium 140 Potassium 5.2 H Chloride 108 Carbon Dioxide 21 L Anion Gap 16 BUN 82 H Creatinine 5.05 H* Estim Creat Clear Calc 9.8 Estimated GFR 11 POC Glucose 105 184 H Random Glucose 122 H Calcium 8.1 L Microbiology Microbiology Results: Microbiology 12/17/21 Unknown Urine Other - Kidney Left Urine Culture - Final Enterococcus raffinosus Lalitha albicans 12/16/21 22:37 Urine clean catch - Urine cowart top Urine Culture - Final Procedures Date of Service Date of Service: 12/28/21 Assessment & Plan Assessment and plan (1) Acute kidney injury: Status: Acute Plan 81 year-old man with CKD4, recurrent nephrolithiasis, colon CA s/p colostomy, essential HTN, DM2, and PTSD who presented with worsening confusion, and ESTUARDO on CKD stage 4. He had severe acidisis; he does have a colostomy s/p resection of colon cancer years ago with associated radiation. He has bilateral stents in the ureters due to bilateral obstructionn and these were changed in the setting of infection. He has residual L hydroneprosis. Creat is some better but stil with creat over 5. His appetite is better and taking fluids today. 1 ESTUARDO on CKD4- likely combination of obstruction, pyelo and prerenal factors; somewhat improved but stil creat over 5. 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 Anemia of CKD 4. Acidosis 5. Left hydronephrosis Recommend: Transfuse 1 unit PRBCs Oral sodium bicarb 650 bid Empiric IVF with LR for another liter today NANCY therapy May come to require dialysis LPCN planned for Friday Time Spent With Patient Time: Total time spent is greater than 50% in coordination of care (as documented) at patient's floor/unit and/or counseling patient: Progress Note: Quality Stroke Does the patient have a stroke diagnosis?: No
[2021-12-28 16:13] LABS: Glucose, Whole Blood 170 mg/dL (60-115)
[2021-12-28 19:46] LABS: Glucose, Whole Blood 173 mg/dL (60-115)
[2021-12-28] MEDS: Atorvastatin Calcium 10 MG TABLET PO (22:39)
[2021-12-28] MEDS: Tamsulosin HCL 0.4 MG CAPSULE PO (22:39)
[2021-12-29] VITALS (11 sets, daily range): BP systolic 118–156; BP diastolic 56–75; PULSE 68–85; RESP 16–20; TEMP 36.2–37.1; O2SAT 94–97
[2021-12-29 07:55] LABS: Glucose, Whole Blood 161 mg/dL (60-115)
[2021-12-29] MEDS: Zinc Sulfate 220 MG CAPSULE PO (08:00)
[2021-12-29] MEDS: Docusate Sodium 100 MG CAPSULE PO (08:00)
[2021-12-29] MEDS: amLODIPine Besylate 5 MG TABLET PO ×2 (08:00→22:25)
[2021-12-29] MEDS: Multivitamin TABLET 1 TAB PO (08:00)
[2021-12-29] MEDS: Famotidine 20 MG TABLET PO (08:00)
[2021-12-29] MEDS: Sodium Bicarbonate 650 MG TABLET PO ×3 (08:00→22:40)
[2021-12-29] MEDS: carvediloL 12.5 MG TABLET PO ×2 (08:00→22:25)
[2021-12-29] MEDS: Cholecalciferol (Vitamin D3) 25 MCG TABLET 50 MCG PO (08:00)
[2021-12-29] MEDS: Magnesium Oxide 400 MG TABLET PO ×2 (08:00→22:24)
[2021-12-29] MEDS: Cyanocobalamin (Vitamin B-12) 1,000 MCG TABLET 1000 MCG PO (08:00)
[2021-12-29] MEDS: hydrALAZINE HCl 25 MG TABLET PO ×3 (08:00→22:25)
[2021-12-29] MEDS: 0.9 % Sodium Chloride Flush 3 ML SYRINGE IVFLUSH ×2 (08:01→18:15)
[2021-12-29] MEDS: Insulin Lispro 100 UNIT/ML 3 ML VIAL SUBCUT ×3 (08:01→22:22)
[2021-12-29] MEDS: Nystatin Powder 15 GM BOTTLE 1 APPL TOPICAL ×2 (08:07→22:39)
[2021-12-29 11:33] LABS: Glucose, Whole Blood 190 mg/dL (60-115)
[2021-12-29] MEDS: Heparin Sodium,Porcine 5,000 UNIT/ML VIAL 5000 UNIT SUBCUT ×2 (11:56→22:36)
--- NOTE | 2021-12-29 14:05 | P.PNIM_ITS ---
Subjective Subjective Date of Service: 12/29/21 Interval History: seen and examined this morning follow up for renal failure confused overnight but seems to be better this morning denies any abdominal pain, fever or chills Review of Systems Review of Systems: Yes all other systems are reviewed and are negative Constitutional Constitutional: Denies chills and Denies fever(s) Cardiovascular Cardiovascular: Denies chest pain and Denies dyspnea Respiratory Respiratory: Denies cough and Denies dyspnea Gastrointestinal Gastrointestinal: Denies abdominal pain, Denies nausea and Denies vomiting Physical Exam Vital Signs: Vital Signs: Last Vital Signs Temp 98.6 F 12/29/21 11:18 Pulse 85 12/29/21 11:18 Resp 20 12/29/21 11:18 BP 118/56 L 12/29/21 11:18 Pulse Ox 97 12/29/21 11:18 O2 Del Method 12/29/21 11:18 O2 Flow Rate 6 12/17/21 16:45 BMI result Body Mass Index 19.9 Const: General: cooperative, comfortable, alert and awake Nutritional Appearance: thin Resp: Effort & Inspection: normal respiratory effort and able to speak in complete sentences Auscultation: clear to auscultation bilaterally Cardio: Rate: regular rate Heart sounds: S1 normal heart sound present and S2 normal heart sound present GI: Other: colostomy present Inspection: No distended Palpation (GI): Soft to palpation : Other: bain in place draining clear urine Neuro: Other: grossly nonfocal Extrem: General: Yes no pedal edema Objective Data Active Medications Acetaminophen (Acetaminophen 325 Mg Tablet) 650 mg PO Q6H PRN PRN Reason: Pain, Mild (Pain Scale 1-3) Last Admin: 12/25/21 15:43 Dose: 650 mg Documented By: DEMETRIUS Acetaminophen (Acetaminophen 325 Mg Tablet) 650 mg PO ONCE PRN PRN Reason: Pain, Mild (Pain Scale 1-3) Amlodipine Besylate (Amlodipine Besylate 5 Mg Tablet) 5 mg PO BID [facility]; Protocol Last Admin: 12/29/21 08:00 Dose: 5 mg Documented By: JUAREZ Atorvastatin Calcium (Atorvastatin Calcium 10 Mg Tablet) 10 mg PO BEDTIME [facility] Last Admin: 12/28/21 22:39 Dose: 10 mg Documented By: JUAN Calcium Carbonate (Calcium Carbonate 500 Mg Tablet) 1,000 mg PO BID [facility] Last Admin: 12/29/21 08:00 Dose: 1,000 mg Documented By: JUAREZ Carvedilol (Carvedilol 12.5 Mg Tablet) 12.5 mg PO BID [facility]; Protocol Last Admin: 12/29/21 08:00 Dose: 12.5 mg Documented By: JUAREZ Cyanocobalamin (Cyanocobalamin (Vitamin B-12) 1,000 Mcg Tablet) 1,000 mcg PO DAILY [facility] Last Admin: 12/29/21 08:00 Dose: 1,000 mcg Documented By: JUAREZ Dextrose (Dextrose 50 % 25 Gm/50 Ml Syringe) 25 gm IVPUSH Q15M PRN; Protocol PRN Reason: per Hypoglycemia Standing Ord. Dipyridamole/Aspirin (Aspirin/Dipyridamole Er 25/200 Cpmp.12hr) 1 cap PO BID [facility] Last Admin: 12/26/21 08:29 Dose: 1 cap Documented By: JUAREZ Docusate Sodium (Docusate Sodium 100 Mg Capsule) 100 mg PO DAILY [facility] Last Admin: 12/29/21 08:00 Dose: 100 mg Documented By: JUAREZ Famotidine (Famotidine 20 Mg Tablet) 20 mg PO BID [facility] Last Admin: 12/29/21 08:00 Dose: 20 mg Documented By: JUAREZ Glucose (Glucose Gel 15 Gm Gel..Gram.) 15 gm PO Q15M PRN; Protocol PRN Reason: per Hypoglycemia Standing Ord. Heparin Sodium (Porcine) (Heparin Sodium,Porcine 5,000 Unit/Ml Vial) 5,000 unit SUBCUT Q12H [facility] Last Admin: 12/29/21 11:56 Dose: 5,000 unit Documented By: JUAREZ Hydralazine HCl (Hydralazine Hcl 25 Mg Tablet) 25 mg PO TID [facility]; Protocol Last Admin: 12/29/21 08:00 Dose: 25 mg Documented By: JUAREZ Lactated Ringer's (Lr) 1,000 mls @ 100 mls/hr IVCONT .Q10H [facility] Stop: 12/29/21 23:59 Insulin Human Lispro (Insulin Lispro 100 Unit/Ml 3 Ml Vial) 0 unit SUBCUT QIDACHS [facility]; Protocol Last Admin: 12/29/21 11:56 Dose: 2 unit Documented By: JUAREZ Magnesium Oxide (Magnesium Oxide 400 Mg Tablet) 400 mg PO BID [facility] Last Admin: 12/29/21 08:00 Dose: 400 mg Documented By: JUAREZ Melatonin (Melatonin 3 Mg Tablet) 6 mg PO BEDTIME PRN PRN Reason: insomnia Multivitamins/Vitamin C (Multivitamin Tablet) 1 tab PO DAILY [facility] Last Admin: 12/29/21 08:00 Dose: 1 tab Documented By: JUAREZ Nystatin (Nystatin Powder 15 Gm Bottle) 1 appl TOPICAL BID [facility]; Protocol Last Admin: 12/29/21 08:07 Dose: 1 appl Documented By: JUAREZ Ondansetron HCl (Ondansetron Hcl 4 Mg/2 Ml Vial) 4 mg IVPUSH Q8H PRN PRN Reason: Nausea and Vomiting Ondansetron HCl (Ondansetron Hcl 4 Mg/2 Ml Vial) 4 mg IVPUSH ONCE PRN PRN Reason: Nausea and Vomiting Pharmacy Consult (Consult Rx Perform Med Rec) 1 each MISCELLANE ONCE PRN PRN Reason: Consult order Sodium Bicarbonate (Sodium Bicarbonate 650 Mg Tablet) 650 mg PO TID [facility] Last Admin: 12/29/21 08:00 Dose: 650 mg Documented By: JUAREZ Sodium Chloride (0.9 % Sodium Chloride Flush 3 Ml Syringe) 3 ml IVFLUSH QSHIFT [facility] Last Admin: 12/29/21 08:01 Dose: 3 ml Documented By: JUAREZ Tamsulosin HCl (Tamsulosin Hcl 0.4 Mg Capsule) 0.4 mg PO BEDTIME [facility] Last Admin: 12/28/21 22:39 Dose: 0.4 mg Documented By: JUAN Vitamin D (Cholecalciferol (Vitamin D3) 25 Mcg Tablet) 50 mcg PO DAILY [facility] Last Admin: 12/29/21 08:00 Dose: 50 mcg Documented By: JUAREZ Zinc Sulfate (Zinc Sulfate 220 Mg Capsule) 220 mg PO DAILY [facility] Last Admin: 12/29/21 08:00 Dose: 220 mg Documented By: JUAREZ Labs CBC & Chem 7: 12/28/21 06:28 12/28/21 06:28 Labs: Laboratory Results - last 24 hr 12/28/21 12/28/21 12/29/21 16:08 19:38 07:51 POC Glucose 170 H 173 H 161 H 12/29/21 11:19 POC Glucose 190 H Assessment and Plan (1) Metabolic encephalopathy: Status: Acute (2) Metabolic acidosis: Status: Acute (3) Acute kidney injury: Status: Acute Plan 81 year-old man with CKD4, recurrent nephrolithiasis, colon CA s/p colostomy, essential HTN, DM2, and PTSD who presents today with worsening confusion with alternating lethargy and agitated delirium for the past 2 days.? Found to have ESTUARDO with serum creatinine up to 9.7 from baseline of 3, uremia with BUN of 128, and severe metabolic acidosis with serum bicarbonate of 6 and venous pH of 7.22. ESTUARDO on CKD4 Had cystoscopy 12/[address] Kang - Procedure:? cystoscopy, left stent removal,? left retrograde,left renal pelvis aspiration, left stent placement, right retrograde,? right stent placement SCr around 5 -plan for nephrostomy tube Sunday 12/31 if no improvement by then - aggrenox on hold -Urine culture is now showing enteroccoccus, yeast and strep-- per ID contamination/colonization, not true infection -nephrology, urology following chronic normocytic anemia r/t chronic dz received IV iron 12/24 procrit to be ordered by nephrology will transfuse 1 unit RBC follow CBC hyperK mild follow BMP severe metabolic acidosis improved - continue bicarbonate replacement mild hypernatremia - resolved metabolic encephalopathy - suspect due to uremia/ESTUARDO; may have toxic component from levofloxacin as well [he was prescribed this empirically for UTI as outpt]; improving. still get confused at night, but improved during the day hypoMg - due to renal wasting; resolved hx CVA - Aggrenox on hold for possible nephrostomy tube placement on Friday HTN - continue carvedilol + hydralazine + amlodipine DM2 - hold sitagliptin, give correction-dose lispro VTE ppx: SCDs, heparin and closely watch for hematuria dispo: anticipate STR attending - dr. Gonzalez In my clinical judgment, the patient requires continued inpatient hospitalization for the following reasons: severe metabolic acidosis, ESTUARDO Quality Stroke Does the patient have a stroke diagnosis?: No VTE Prior VTE?: No VTE Risk Level:: Medical - moderate - high VTE Device Contraindication: N/A - Device Ordered VTE Drug Contraindication: N/A - Med Ordered
[2021-12-29] MEDS: Lactated Ringers 1,000 ML 100 ML IVCONT (14:22)
[2021-12-29 15:11] LABS: Mean Corpuscular Volume 86.1 fL (80.0-98.0)
[2021-12-29 15:16] LABS: Hematocrit 21.6 % (42.0-52.0); Mean Corpuscular HGB Conc 31.9 g/dl (31.0-36.0); Mean Corpuscular Hemoglobin 27.5 pg (27.0-33.0); Mean Platelet Volume 10.4 fL (9.4-12.4); Platelet Count 278 X10*3/uL (160-400); Red Blood Count 2.51 X10*6/uL (4.60-5.80); Red Cell Distribution Width 17.3 % (11.0-16.0); White Blood Count 6.8 X10*3/uL (4.8-10.8)
[2021-12-29 15:30] LABS: Hemoglobin 6.9 g/dl (14.0-18.0)
[2021-12-29 15:57] LABS: Anion Gap 16 (12-20); Blood Urea Nitrogen 80 mg/dL (9-16); Calcium 8.1 mg/dL (8.4-10.2); Carbon Dioxide 21 mmol/L (22-29); Chloride 108 mmol/L (96-108); Glucose Random 148 mg/dL (60-115); Potassium 4.3 mmol/L (3.3-5.1); Sodium 141 mmol/L (135-145)
[2021-12-29 16:01] LABS: Creatinine Clr Calc Pharmacy 10.2; Estimated Glomerular Filt Rate 11
[2021-12-29 16:33] LABS: Glucose, Whole Blood 143 mg/dL (60-115)
[2021-12-29] MEDS: diphenhydrAMINE HCl 12.5 MG/5 ML LIQUID PO (16:52)
[2021-12-29] MEDS: Acetaminophen 325 MG TABLET 650 MG PO (16:53)
--- NOTE | 2021-12-29 17:10 | P.PNNP_ITS ---
Subjective Subjective Date of Service: 12/29/21 Interval history: seen and examined this morning follow up for renal failure confused overnight but seems to be better this morning denies any abdominal pain, fever or chills Physical Exam Vital Signs: Vital Signs: Last Vital Signs Temp 97.1 F 12/29/21 15:27 Pulse 70 12/29/21 15:27 Resp 16 12/29/21 15:27 BP 130/60 12/29/21 15:27 Pulse Ox 94 12/29/21 15:27 O2 Del Method 12/29/21 15:27 O2 Flow Rate 6 12/17/21 16:45 BMI result Body Mass Index 19.9 Const: Other: Obtunded. General: cooperative, healthy appearing, comfortable, no acute distress, alert, awake and confusion Nutritional Appearance: well nourished and thin Orientation/consciousness: patient oriented x3 and confusion Limitations: no limitations HEENT: Other: Very dry mucous membranes Head: Yes normal to inspection and Yes atraumatic Ears: hearing grossly normal bilaterally and external ears normal General nose exam: Normal external nose present, no nasal discharge noted and no ep istaxis Face and sinus: Yes normal facial exam, No abrasion and No laceration Mouth: Normal oral and palatal mucosa present, moist mucous membranes, no drooling and no muffled voice Eyes: Other: No scleral icterus. General: appearance normal, both eyes and all related structures Periorbital: periorbital findings normal Eyelids: Yes eyelids normal Conjunctivae: conjunctivae normal Pupils: Equal, round and reactive pupils present EOM: EOMs intact bilaterally Neck: Neck: Yes normal visual inspection, Yes full ROM, Yes no lymphadenopathy, Yes trachea midline and Yes supple Chest: Chest palpation & inspection: normal inspection of the chest Resp: Other: Tachypneic. CTAB otherwise Effort & Inspection: normal respiratory effort, able to speak in complete sentences and no respiratory distress Auscultation: clear to auscultation bilaterally and diminished lung sounds Cardio: Jugular venous distension: no JVD Rate: regular rate and tachycardic Rhythm: regular rhythm Heart sounds: S1 normal heart sound present and S2 normal heart sound present GI: Other: colostomy present Inspection: Yes normal to inspection and No distended Palpation (GI): Soft to palpation : Other: bain in place draining clear urine Back/Spine/Pelvis: Cervical Spine: normal cervical lordosis Thoracic/Lumbar Spine: thoracic and lumbar spine normal to inspection Skin: General skin exam: no rashes or lesions noted Neuro: Other: grossly nonfocal General: patient oriented x3, gait normal, tone normal, moves all extremities, confusion and Unable to assess gait Cranial nerves: Yes Equal, round and reactive pupils present Cognition (Neuro): abnormal cognition Gait exam (Neuro): Unable to assess gait Extrem: Other: No edema General: Yes normal to inspection, Yes full ROM, Yes capillary refill normal and Yes no pedal edema Psych: Other: confusion,delirium,picking at clothing Appearance: grossly normal Mental Status: mental status grossly normal Affect: normal affect Attitude: cooperative Thought process: Normal thought process present Thought content: Normal thought content present Insight: Good insight present (Psych) Objective Data Labs CBC & Chem 7: 12/29/21 14:55 12/29/21 14:55 Labs: Laboratory Results - last 24 hr 12/28/21 12/29/21 12/29/21 19:38 07:51 11:19 WBC RBC Hgb Hct MCV MCH MCHC RDW Plt Count MPV Absolute Nucleated RBC Nucleated RBC % (auto) Sodium Potassium Chloride Carbon Dioxide Anion Gap BUN Creatinine Estim Creat Clear Calc Estimated GFR POC Glucose 173 H 161 H 190 H Random Glucose Calcium Blood Type Antibody Screen Crossmatch 12/29/21 12/29/21 12/29/21 14:55 14:55 14:55 WBC 6.8 RBC 2.51 L Hgb 6.9 L* Hct 21.6 L MCV 86.1 MCH 27.5 MCHC 31.9 RDW 17.3 H Plt Count 278 MPV 10.4 Absolute Nucleated RBC 0.000 Nucleated RBC % (auto) 0.0 Sodium 141 Potassium 4.3 Chloride 108 Carbon Dioxide 21 L Anion Gap 16 BUN 80 H Creatinine 4.87 H* Estim Creat Clear Calc 10.2 Estimated GFR 11 POC Glucose Random Glucose 148 H Calcium 8.1 L Blood Type AB Positive Antibody Screen NEGATIVE Crossmatch See Detail 12/29/21 16:29 WBC RBC Hgb Hct MCV MCH MCHC RDW Plt Count MPV Absolute Nucleated RBC Nucleated RBC % (auto) Sodium Potassium Chloride Carbon Dioxide Anion Gap BUN Creatinine Estim Creat Clear Calc Estimated GFR POC Glucose 143 H Random Glucose Calcium Blood Type Antibody Screen Crossmatch Microbiology Microbiology Results: Microbiology 12/17/21 Unknown Urine Other - Kidney Left Urine Culture - Final Enterococcus raffinosus Lalitha albicans 12/16/21 22:37 Urine clean catch - Urine cowart top Urine Culture - Final Procedures Date of Service Date of Service: 12/29/21 Assessment & Plan Assessment and plan (1) Metabolic encephalopathy: Status: Acute (2) Metabolic acidosis: Status: Acute (3) Acute kidney injury: Status: Acute Plan 81 year-old man with CKD4, recurrent nephrolithiasis, colon CA s/p colostomy, essential HTN, DM2, and PTSD who presents today with worsening confusion with alternating lethargy and agitated delirium for the past 2 days.? Found to have ESTUARDO with serum creatinine up to 9.7 from baseline of 3, uremia with BUN of 128, and severe metabolic acidosis with serum bicarbonate of 6 and venous pH of 7.22. ESTUARDO on CKD4 Had cystoscopy 12/[address] Kang - Procedure:? cystoscopy, left stent removal,? left retrograde,left renal pelvis aspiration, left stent placement, right retrograde,? right stent placement SCr is slowly improving -plan for nephrostomy tube Sunday 12/31 but is slowly improving and we may be able to hold off -Urine culture is now showing enteroccoccus, yeast and strep-- per ID contamination/colonization, not true infection -nephrology, urology following Marked anemia: recommend transfusion in this frail/fragile elderly gent Progress Note: Quality Stroke Does the patient have a stroke diagnosis?: No
[2021-12-29 19:26] LABS: Glucose, Whole Blood 201 mg/dL (60-115)
[2021-12-29 20:09] LABS: Glucose, Whole Blood 191 mg/dL (60-115)
[2021-12-29] MEDS: Tamsulosin HCL 0.4 MG CAPSULE PO (22:25)
[2021-12-29] MEDS: Atorvastatin Calcium 10 MG TABLET PO (22:26)
[2021-12-30] VITALS (7 sets, daily range): BP systolic 128–156; BP diastolic 60–72; PULSE 58–81; RESP 15–20; TEMP 36.2–37; O2SAT 95–98
[2021-12-30 07:31] LABS: Glucose, Whole Blood 102 mg/dL (60-115)
[2021-12-30 07:42] LABS: Hematocrit 25.1 % (42.0-52.0); Hemoglobin 7.8 g/dl (14.0-18.0); Mean Corpuscular HGB Conc 31.1 g/dl (31.0-36.0); Mean Corpuscular Hemoglobin 27.4 pg (27.0-33.0); Mean Corpuscular Volume 88.1 fL (80.0-98.0); Mean Platelet Volume 10.6 fL (9.4-12.4); Platelet Count 284 X10*3/uL (160-400); Red Blood Count 2.85 X10*6/uL (4.60-5.80); White Blood Count 6.5 X10*3/uL (4.8-10.8)
[2021-12-30 08:00] LABS: Anion Gap 17 (12-20); Blood Urea Nitrogen 76 mg/dL (9-16); Calcium 8.2 mg/dL (8.4-10.2); Carbon Dioxide 19 mmol/L (22-29); Chloride 109 mmol/L (96-108); Creatinine Clr Calc Pharmacy 10.8; Estimated Glomerular Filt Rate 12; Glucose Random 110 mg/dL (60-115); Potassium 4.6 mmol/L (3.3-5.1); Sodium 140 mmol/L (135-145)
[2021-12-30] MEDS: Multivitamin TABLET 1 TAB PO (10:22)
[2021-12-30] MEDS: Sodium Bicarbonate 650 MG TABLET PO ×3 (10:22→20:33)
[2021-12-30] MEDS: hydrALAZINE HCl 25 MG TABLET PO ×3 (10:22→20:34)
[2021-12-30] MEDS: Cholecalciferol (Vitamin D3) 25 MCG TABLET 50 MCG PO (10:22)
[2021-12-30] MEDS: Magnesium Oxide 400 MG TABLET PO ×2 (10:23→20:33)
[2021-12-30] MEDS: amLODIPine Besylate 5 MG TABLET PO ×2 (10:23→20:34)
[2021-12-30] MEDS: Famotidine 20 MG TABLET PO (10:23)
[2021-12-30] MEDS: Zinc Sulfate 220 MG CAPSULE PO (10:23)
[2021-12-30] MEDS: Cyanocobalamin (Vitamin B-12) 1,000 MCG TABLET 1000 MCG PO (10:23)
[2021-12-30] MEDS: Docusate Sodium 100 MG CAPSULE PO (10:23)
[2021-12-30] MEDS: carvediloL 12.5 MG TABLET PO ×2 (10:23→20:34)
[2021-12-30] MEDS: Heparin Sodium,Porcine 5,000 UNIT/ML VIAL 5000 UNIT SUBCUT (10:24)
[2021-12-30] MEDS: Nystatin Powder 15 GM BOTTLE 1 APPL TOPICAL ×2 (10:24→20:34)
[2021-12-30] MEDS: 0.9 % Sodium Chloride Flush 3 ML SYRINGE IVFLUSH ×3 (10:24→23:19)
[2021-12-30 11:48] LABS: Glucose, Whole Blood 193 mg/dL (60-115)
--- NOTE | 2021-12-30 12:07 | HO.PM.IMPN ---
Subjective Subjective Date of Service: 12/30/21 <SHREYAS Schmitz - Last Filed: 12/30/21 12:34> 01/02/22 <Liban Cameron MD - Last Filed: 01/02/22 10:07> Interval History: seen and examined this morning follow up for renal failure no overnight events no complaints this morning. no fever, chills, abdominal pain <SHREYAS Schmitz - Last Filed: 12/30/21 12:34> Review of Systems Review of Systems: Yes all other systems are reviewed and are negative <SHREYAS Schmitz - Last Filed: 12/30/21 12:34> Constitutional Constitutional: Denies chills and Denies fever(s) <SHREYAS Schmitz Last Filed: 12/30/21 12:34> Cardiovascular Cardiovascular: Denies chest pain, Denies palpitations and Denies dyspnea <SHREYAS Schmitz Last Filed: 12/30/21 12:34> Respiratory Respiratory: Denies cough and Denies dyspnea <SHREYAS Schmitz - Last Filed: 12/30/21 12:34> Gastrointestinal Gastrointestinal: Denies abdominal pain, Denies diarrhea, Denies nausea and Denies vomiting <SHREYAS Schmitz - Last Filed: 12/30/21 12:34> Endocrine Endocrine: Denies palpitations <SHREYAS Schmitz Last Filed: 12/30/21 12:34> Physical Exam Vital Signs: Vital Signs: Last Vital Signs Temp 98.2 F 12/30/21 11:30 Pulse 66 12/30/21 11:30 Resp 18 12/30/21 11:30 BP 146/67 H 12/30/21 11:30 Pulse Ox 95 12/30/21 11:30 O2 Del Method 12/30/21 11:30 O2 Flow Rate 6 12/17/21 16:45 BMI result Body Mass Index 19.9 <SHREYAS Schmitz - Last Filed: 12/30/21 12:34> Const: General: cooperative, comfortable, alert and awake <SHREYAS Schmitz Last Filed: 12/30/21 12:34> Nutritional Appearance: thin <SHREYAS Schmitz - Last Filed: 12/30/21 12:34> Resp: Effort & Inspection: normal respiratory effort and able to speak in complete sentences <SHREYAS Schmitz - Last Filed: 12/30/21 12:34> Auscultation: clear to auscultation bilaterally <SHREYAS Schmitz - Last Filed: 12/30/21 12:34> Cardio: Rate: regular rate <SHREYAS Schmitz - Last Filed: 12/30/21 12:34> Heart sounds: S1 normal heart sound present and S2 normal heart sound present <SHREYAS Schmitz - Last Filed: 12/30/21 12:34> GI: Other: colostomy present <SHREYAS Schmitz - Last Filed: 12/30/21 12:34> Inspection: No distended <SHREYAS Schmitz - Last Filed: 12/30/21 12:34> Palpation (GI): Soft to palpation <SHREYAS Schmitz - Last Filed: 12/30/21 12:34> : Other: bain in place draining clear urine <SHREYAS Schmitz - Last Filed: 12/30/21 12:34> Neuro: Other: grossly nonfocal <SHREYAS Schmitz - Last Filed: 12/30/21 12:34> Extrem: General: Yes no pedal edema <SHREYAS Schmitz - Last Filed: 12/30/21 12:34> Objective Data Active Medications Acetaminophen (Acetaminophen 325 Mg Tablet) 650 mg PO Q6H PRN PRN Reason: Pain, Mild (Pain Scale 1-3) Last Admin: 12/29/21 16:53 Dose: 650 mg Documented By: JUAREZ Acetaminophen (Acetaminophen 325 Mg Tablet) 650 mg PO ONCE PRN PRN Reason: Pain, Mild (Pain Scale 1-3) Amlodipine Besylate (Amlodipine Besylate 5 Mg Tablet) 5 mg PO BID [facility]; Protocol Last Admin: 12/30/21 10:23 Dose: 5 mg Documented By: JUAREZ Atorvastatin Calcium (Atorvastatin Calcium 10 Mg Tablet) 10 mg PO BEDTIME [facility] Last Admin: 12/29/21 22:26 Dose: 10 mg Documented By: ALEA Calcium Carbonate (Calcium Carbonate 500 Mg Tablet) 1,000 mg PO BID [facility] Last Admin: 12/30/21 10:22 Dose: 1,000 mg Documented By: JUAERZ Carvedilol (Carvedilol 12.5 Mg Tablet) 12.5 mg PO BID [facility]; Protocol Last Admin: 12/30/21 10:23 Dose: 12.5 mg Documented By: JUAREZ Cyanocobalamin (Cyanocobalamin (Vitamin B-12) 1,000 Mcg Tablet) 1,000 mcg PO DAILY [facility] Last Admin: 12/30/21 10:23 Dose: 1,000 mcg Documented By: JUAREZ Dextrose (Dextrose 50 % 25 Gm/50 Ml Syringe) 25 gm IVPUSH Q15M PRN; Protocol PRN Reason: per Hypoglycemia Standing Ord. Dipyridamole/Aspirin (Aspirin/Dipyridamole Er 25/200 Cpmp.12hr) 1 cap PO BID [facility] Last Admin: 12/26/21 08:29 Dose: 1 cap Documented By: JUAREZ Docusate Sodium (Docusate Sodium 100 Mg Capsule) 100 mg PO DAILY [facility] Last Admin: 12/30/21 10:23 Dose: 100 mg Documented By: JUAREZ Famotidine (Famotidine 20 Mg Tablet) 20 mg PO DAILY [facility] Last Admin: 12/30/21 10:23 Dose: 20 mg Documented By: JUAREZ Glucose (Glucose Gel 15 Gm Gel..Gram.) 15 gm PO Q15M PRN; Protocol PRN Reason: per Hypoglycemia Standing Ord. Heparin Sodium (Porcine) (Heparin Sodium,Porcine 5,000 Unit/Ml Vial) 5,000 unit SUBCUT Q12H [facility] Last Admin: 12/30/21 10:24 Dose: 5,000 unit Documented By: JUAREZ Hydralazine HCl (Hydralazine Hcl 25 Mg Tablet) 25 mg PO TID [facility]; Protocol Last Admin: 12/30/21 10:22 Dose: 25 mg Documented By: JUAREZ Insulin Human Lispro (Insulin Lispro 100 Unit/Ml 3 Ml Vial) 0 unit SUBCUT QIDACHS [facility]; Protocol Last Admin: 12/30/21 10:14 Dose: Not Given Documented By: JUAREZ Non-Admin Reason: No Insulin Coverage Magnesium Oxide (Magnesium Oxide 400 Mg Tablet) 400 mg PO BID [facility] Last Admin: 12/30/21 10:23 Dose: 400 mg Documented By: JUAREZ Melatonin (Melatonin 3 Mg Tablet) 6 mg PO BEDTIME PRN PRN Reason: insomnia Multivitamins/Vitamin C (Multivitamin Tablet) 1 tab PO DAILY [facility] Last Admin: 12/30/21 10:22 Dose: 1 tab Documented By: JUAREZ Nystatin (Nystatin Powder 15 Gm Bottle) 1 appl TOPICAL BID [facility]; Protocol Last Admin: 12/30/21 10:24 Dose: 1 appl Documented By: JUAREZ Ondansetron HCl (Ondansetron Hcl 4 Mg/2 Ml Vial) 4 mg IVPUSH Q8H PRN PRN Reason: Nausea and Vomiting Ondansetron HCl (Ondansetron Hcl 4 Mg/2 Ml Vial) 4 mg IVPUSH ONCE PRN PRN Reason: Nausea and Vomiting Pharmacy Consult (Consult Rx Perform Med Rec) 1 each MISCELLANE ONCE PRN PRN Reason: Consult order Sodium Bicarbonate (Sodium Bicarbonate 650 Mg Tablet) 650 mg PO TID [facility] Last Admin: 12/30/21 10:22 Dose: 650 mg Documented By: JUAREZ Sodium Chloride (0.9 % Sodium Chloride Flush 3 Ml Syringe) [facility] Last Admin: 12/30/21 10:24 Dose: 3 ml Documented By: JUAREZ Tamsulosin HCl (Tamsulosin Hcl 0.4 Mg Capsule) 0.4 mg PO BEDTIME [facility] Last Admin: 12/29/21 22:25 Dose: 0.4 mg Documented By: ALEA Vitamin D (Cholecalciferol (Vitamin D3) 25 Mcg Tablet) 50 mcg PO DAILY [facility] Last Admin: 12/30/21 10:22 Dose: 50 mcg Documented By: JUAREZ Zinc Sulfate (Zinc Sulfate 220 Mg Capsule) 220 mg PO DAILY [facility] Last Admin: 12/30/21 10:23 Dose: 220 mg Documented By: JUAREZ <SHREYAS Schmitz - Last Filed: 12/30/21 12:34> Labs CBC & Chem 7: : 01/01/22 09:02 01/02/22 05:44 <SHREYAS Schmitz - Last Filed: 12/30/21 12:34> Labs: Laboratory Results - last 24 hr 12/29/21 12/29/21 12/29/21 14:55 14:55 14:55 MCV 86.1 MCH 27.5 MCHC 31.9 RDW 17.3 H Plt Count 278 MPV 10.4 Absolute Nucleated RBC 0.000 Nucleated RBC % (auto) 0.0 Anion Gap 16 Estim Creat Clear Calc 10.2 Estimated GFR 11 POC Glucose Random Glucose 148 H Calcium 8.1 L Blood Type AB Positive Antibody Screen NEGATIVE Crossmatch See Detail 12/29/21 12/29/21 12/29/21 16:29 19:22 20:05 MCV MCH MCHC RDW Plt Count MPV Absolute Nucleated RBC Nucleated RBC % (auto) Anion Gap Estim Creat Clear Calc Estimated GFR POC Glucose 143 H 201 H 191 H Random Glucose Calcium Blood Type Antibody Screen Crossmatch 12/30/21 12/30/21 12/30/21 06:59 06:59 07:23 MCV 88.1 MCH 27.4 MCHC 31.1 RDW 17.0 H Plt Count 284 MPV 10.6 Absolute Nucleated RBC 0.000 Nucleated RBC % (auto) 0.0 Anion Gap 17 Estim Creat Clear Calc 10.8 Estimated GFR 12 POC Glucose 102 Random Glucose 110 Calcium 8.2 L Blood Type Antibody Screen Crossmatch 12/30/21 11:29 MCV MCH MCHC RDW Plt Count MPV Absolute Nucleated RBC Nucleated RBC % (auto) Anion Gap Estim Creat Clear Calc Estimated GFR POC Glucose 193 H Random Glucose Calcium Blood Type Antibody Screen Crossmatch <SHREYAS Schmitz - Last Filed: 12/30/21 12:34> Assessment and Plan (1) Metabolic encephalopathy: Status: Acute <SHREYAS Schmitz - Last Filed: 12/30/21 12:34> (2) Acute kidney injury: Status: Acute <SHREYAS Schmitz - Last Filed: 12/30/21 12:34> Assessment and Plan: 81 year-old man with CKD4, recurrent nephrolithiasis, colon CA s/p colostomy, essential HTN, DM2, and PTSD who presents today with worsening confusion with alternating lethargy and agitated delirium for the past 2 days.? Found to have ESTUARDO with serum creatinine up to 9.7 from baseline of 3, uremia with BUN of 128, and severe metabolic acidosis with serum bicarbonate of 6 and venous pH of 7.22. ESTUARDO on CKD4 Had cystoscopy 12/[address] Kang - cystoscopy, left stent removal,? left retrograde,left renal pelvis aspiration, left stent placement, right retrograde,? right stent placement SCr around trending down to 4.61 -plan for nephrostomy tube Sunday 12/31 if no improvement by then - aggrenox on hold - if renal function continues to improve may not need -Urine culture is now showing enteroccoccus, yeast and strep-- per ID contamination/colonization, not true infection -nephrology, urology following chronic normocytic anemia r/t chronic dz received IV iron 12/24 procrit to be ordered by nephrology s/p 1U blood 12/29, with some improvement in H/H follow CBC hyperK resolved severe metabolic acidosis continue bicarbonate replacement mild hypernatremia resolved metabolic encephalopathy suspect due to uremia/ESTUARDO; may have toxic component from levofloxacin as well [he was prescribed this empirically for UTI as outpt]; improving. still get confused at night, but improved during the day hypoMg due to renal wasting; resolved hx CVA Aggrenox on hold for possible nephrostomy tube placement on Friday HTN continue carvedilol + hydralazine + amlodipine DM2 hold sitagliptin, give correction-dose lispro VTE ppx: SCDs, hold heparin today for possible nephrostomy tube tomorrow dispo: anticipate STR attending - dr. cameron In my clinical judgment, the patient requires continued inpatient hospitalization for the following reasons: severe metabolic acidosis, ESTUARDO <SHREYAS Schmitz - Last Filed: 12/30/21 12:34> Quality Stroke Does the patient have a stroke diagnosis?: No <SHREYAS Schmitz - Last Filed: 12/30/21 12:34> VTE Prior VTE?: No <SHREYAS Schmitz - Last Filed: 12/30/21 12:34> VTE Risk Level:: Medical - moderate - high <SHREYAS Schmitz Last Filed: 12/30/21 12:34> VTE Device Contraindication: N/A - Device Ordered <SHREYAS Schmitz Last Filed: 12/30/21 12:34> VTE Drug Contraindication: N/A - Med Ordered <SHREYAS Schmitz - Last Filed: 12/30/21 12:34>
[2021-12-30] MEDS: Insulin Lispro 100 UNIT/ML 3 ML VIAL SUBCUT ×2 (12:35→20:33)
--- NOTE | 2021-12-30 14:11 | P.PNNP_ITS ---
Subjective Subjective Date of Service: 12/30/21 Interval history: seen and examined this morning follow up for renal failure no overnight events no complaints this morning. no fever, chills, abdominal pain Physical Exam Vital Signs: Vital Signs: Last Vital Signs Temp 98.2 F 12/30/21 11:30 Pulse 66 12/30/21 11:30 Resp 18 12/30/21 11:30 BP 146/67 H 12/30/21 11:30 Pulse Ox 95 12/30/21 11:30 O2 Del Method 12/30/21 11:30 O2 Flow Rate 6 12/17/21 16:45 BMI result Body Mass Index 19.9 Const: Other: Obtunded. General: comfortable, no acute distress, alert and awake Nutritional Appearance: thin Orientation/consciousness: patient oriented x3 HEENT: Other: Very dry mucous membranes General nose exam: no nasal discharge noted and no epistaxis Neck: Neck: Yes normal visual inspection, Yes full ROM, Yes no lymphadenopathy, Yes trachea midline and Yes supple Resp: Other: Tachypneic. CTAB otherwise Effort & Inspection: normal respiratory effort, able to speak in complete sentences and no respiratory distress Auscultation: clear to auscultation bilaterally and diminished lung sounds Cardio: Jugular venous distension: no JVD Rate: regular rate and tachycardic Rhythm: regular rhythm Heart sounds: S1 normal heart sound present and S2 normal heart sound present GI: Other: colostomy present Inspection: Yes normal to inspection and No distended Palpation (GI): Soft to palpation Skin: General skin exam: no rashes or lesions noted Neuro: Other: grossly nonfocal General: patient oriented x3, gait normal, tone normal, moves all extremities and Unable to assess gait Cognition (Neuro): abnormal cognition Gait exam (Neuro): Unable to assess gait Extrem: Other: No edema General: Yes normal to inspection, Yes full ROM, Yes capillary refill normal and Yes no pedal edema Psych: Other: confusion,delirium,picking at clothing Appearance: grossly normal Mental Status: mental status grossly normal Affect: normal affect Attitude: co operative Thought process: Normal thought process present Thought content: Normal thought content present Insight: Good insight present (Psych) Objective Data Labs CBC & Chem 7: 12/30/21 06:59 12/30/21 06:59 Labs: Laboratory Results - last 24 hr 12/29/21 12/29/21 12/29/21 14:55 14:55 14:55 WBC 6.8 RBC 2.51 L Hgb 6.9 L* Hct 21.6 L MCV 86.1 MCH 27.5 MCHC 31.9 RDW 17.3 H Plt Count 278 MPV 10.4 Absolute Nucleated RBC 0.000 Nucleated RBC % (auto) 0.0 Sodium 141 Potassium 4.3 Chloride 108 Carbon Dioxide 21 L Anion Gap 16 BUN 80 H Creatinine 4.87 H* Estim Creat Clear Calc 10.2 Estimated GFR 11 POC Glucose Random Glucose 148 H Calcium 8.1 L Blood Type AB Positive Antibody Screen NEGATIVE Crossmatch See Detail 12/29/21 12/29/21 12/29/21 16:29 19:22 20:05 WBC RBC Hgb Hct MCV MCH MCHC RDW Plt Count MPV Absolute Nucleated RBC Nucleated RBC % (auto) Sodium Potassium Chloride Carbon Dioxide Anion Gap BUN Creatinine Estim Creat Clear Calc Estimated GFR POC Glucose 143 H 201 H 191 H Random Glucose Calcium Blood Type Antibody Screen Crossmatch 12/30/21 12/30/21 12/30/21 06:59 06:59 07:23 WBC 6.5 RBC 2.85 L Hgb 7.8 L Hct 25.1 L MCV 88.1 MCH 27.4 MCHC 31.1 RDW 17.0 H Plt Count 284 MPV 10.6 Absolute Nucleated RBC 0.000 Nucleated RBC % (auto) 0.0 Sodium 140 Potassium 4.6 Chloride 109 H Carbon Dioxide 19 L Anion Gap 17 BUN 76 H Creatinine 4.61 H* Estim Creat Clear Calc 10.8 Estimated GFR 12 POC Glucose 102 Random Glucose 110 Calcium 8.2 L Blood Type Antibody Screen Crossmatch 12/30/21 11:29 WBC RBC Hgb Hct MCV MCH MCHC RDW Plt Count MPV Absolute Nucleated RBC Nucleated RBC % (auto) Sodium Potassium Chloride Carbon Dioxide Anion Gap BUN Creatinine Estim Creat Clear Calc Estimated GFR POC Glucose 193 H Random Glucose Calcium Blood Type Antibody Screen Crossmatch Microbiology Microbiology Results: Microbiology 12/17/21 Unknown Urine Other - Kidney Left Urine Culture - Final Enterococcus raffinosus Lalitha albicans 12/16/21 22:37 Urine clean catch - Urine cowart top Urine Culture - Final Procedures Date of Service Date of Service: 12/30/21 Assessment & Plan Assessment and plan (1) Acute kidney injury: Status: Acute (2) Hydronephrosis: Status: Acute Plan 81 year-old man with CKD4, recurrent nephrolithiasis, colon CA s/p colostomy, essential HTN, DM2, and PTSD who presented with worsening confusion with alternating lethargy and agitated delirium for the past 2 days.? Found to have ESTUARDO with serum creatinine up to 9.7 from baseline of 3, uremia with BUN of 128, and severe metabolic acidosis with serum bicarbonate of 6 and venous pH of 7.22. With stent placement for obstructive nephropathy, his creat has slowly improved and is now down to 4.6. He is nonoliguric and uremia has cleared. Recommend: Hold off on PCN tube tomorrow [address] [address] Nephrology Progress Note Signed Patient: Ronny Vernon MR#: [id number] : 1940 Acct:[id number] Age/Sex: 81 / M Loc: [place] [id number] ?? ? Attending Dr: Aruna PRITCHETT cc: ~ Subjective Subjective Date of Service: 12/29/21 Interval history: seen and examined this morning follow up for renal failure confused overnight but seems to be better this morning denies any abdominal pain, fever or chills Physical Exam Vital Signs:?? Vital Signs: Last Vital Signs Temp ? 97.1 F? 12/29/21 15:27 Pulse? 70? 12/29/21 15:27 Resp ? 16? 12/29/21 15:27 BP ? 130/60? 12/29/21 15:27 Pulse Ox ? 94? 12/29/21 15:27 O2 Del Method? 12/29/21 15:27 O2 Flow Rate ? 6 ? 12/17/21 16:45 BMI result Body Mass Index ? 19.9? Const:?? Other: Obtunded.? General: cooperative, healthy appearing, comfortable, no acute distress, alert, awake and confusion? Nutritional Appearance: well nourished and thin? Orientation/consciousness: patient oriented x3 and confusion? Limitations: no limitations HEENT:?? Other: Very dry mucous membranes? Head: Yes normal to inspection and Yes atraumatic? Ears: hearing grossly normal bilaterally and external ears normal? General nose exam: Normal external nose present, no nasal discharge noted and no epistaxis? Face and sinus: Yes normal facial exam, No abrasion and No laceration? Mouth: Normal oral and palatal mucosa present, moist mucous membranes, no drooling and no muffled voice Eyes:?? Other: No scleral icterus. ? General: appearance normal, both eyes and all related structures? Periorbital: periorbital findings normal? Eyelids: Yes eyelids normal? Conjunctivae: conjunctivae normal? Pupils: Equal, round and reactive pupils present? EOM: EOMs intact bilaterally Neck:?? Neck: Yes normal visual inspection, Yes full ROM, Yes no lymphadenopathy, Yes trachea midline and Yes supple Chest:?? Chest palpation & inspection: normal inspection of the chest Resp:?? Other: Tachypneic. CTAB otherwise? Effort & Inspection: normal respiratory effort, able to speak in complete sentences and no respiratory distress? Auscultation: clear to auscultation bilaterally and diminished lung sounds Cardio:?? Jugular venous distension: no JVD? Rate: regular rate and tachycardic? Rhythm: regular rhythm? Heart sounds: S1 normal heart sound present and S2 normal heart sound present GI:?? Other: colostomy present? Inspection: Yes normal to inspection and No distended? Palpation (GI): Soft to palpation :?? Other: bain in place draining clear urine Back/Spine/Pelvis:?? Cervical Spine: normal cervical lordosis? Thoracic/Lumbar Spine: thoracic and lumbar spine normal to inspection Skin:?? General skin exam: no rashes or lesions noted Neuro:?? Other: grossly nonfocal ? General: patient oriented x3, gait normal, tone normal, moves all extremities, confusion and Unable to assess gait? Cranial nerves: Yes Equal, round and reactive pupils present? Cognition (Neuro): abnormal cognition? Gait exam (Neuro): Unable to assess gait Extrem:?? Other: No edema? General: Yes normal to inspection, Yes full ROM, Yes capillary refill normal and Yes no pedal edema Psych:?? Other: confusion,delirium,picking at clothing? Appearance: grossly normal? Mental Status: mental status grossly normal? Affect: normal affect? Attitude: cooperative? Thought process: Normal thought process present? Thought content: Normal thought content present? Insight: Good insight present (Psych) Objective Data Labs CBC & Chem 7: 12/29/21 14:55? 12/29/21 14:55? Labs: Laboratory Results - last 24 hr ? 12/28/21 12/29/21 12/29/21 ? 19:38 07:51 11:19 WBC ? ? ? RBC ? ? ? Hgb ? ? ? Hct ? ? ? MCV ? ? ? MCH ? ? ? MCHC ? ? ? RDW ? ? ? Plt Count ? ?B ? MPV ? ? ? Absolute Nucleated RBC ? ? ? Nucleated RBC % (auto) ? ? ? Sodium ? ? ? Potassium ? ? ? Chloride ? ? ? Carbon Dioxide ? ? ? Anion Gap ? ? ? BUN ? ? ? Creatinine ? ? ? Estim Creat Clear Calc ? ? ? Estimated GFR ? ? ? POC Glucose ?173 H ?161 H ?190 H Random Glucose ? ? ? Calcium ? ? ? Blood Type ? ? ? Antibody Screen ? ? ? Crossmatch ? 12/29/21 12/29/21 12/29/21 ? 14:55 14:55 14:55 WBC ?6.8 ? ? RBC ?2.51 L ? ? Hgb ?6.9 L* ? ? Hct ?21.6 L ? ? MCV ?86.1 ? ? MCH ?27.5 ? ? MCHC ?31.9 ? ? RDW ?17.3 H ? ? Plt Count ?278 ? ? MPV ?10.4 ? ? Absolute Nucleated RBC ?0.000 ? ? Nucleated RBC % (auto) ?0.0 ? ? Sodium ? ?141 ? Potassium ? ?4.3 ? Chloride ? ?108 ? Carbon Dioxide ? ?21 L ? Anion Gap ? ?16 ? BUN ? ?80 H ? Creatinine ? ?4.87 H* ? Estim Creat Clear Calc ? ?10.2 ? Estimated GFR ? ?11 ? POC Glucose ? ? ? Random Glucose ? ?148 HB ? Calcium ? ?8.1 L ? Blood Type ? ? ?AB Positive Antibody Screen ? ? ?NEGATIVE Crossmatch ? ? ?See Detail ? 12/29/21 ? 16:29 WBC ? RBC ? Hgb ? Hct ? MCV ? MCH ? MCHC ? RDW ? Plt Count ? MPV ? Absolute Nucleated RBC ? Nucleated RBC % (auto)B ? Sodium ? Potassium ? Chloride ? Carbon Dioxide ? Anion Gap ? BUN ? Creatinine ? Estim Creat Clear Calc ? Estimated GFR ? POC Glucose ?143 H Random Glucose ? Calcium ? Blood Type ? Antibody Screen ? Crossmatch ? Microbiology Microbiology Results: Microbiology 12/17/21 Unknown ? Urine Other - Kidney Left ? Urine Culture - Final ? Enterococcus raffinosus ? Lalitha albicans 12/16/21 22:37 ? Urine clean catch - Urine cowart top ? Urine Culture - Final Procedures Date of Service Date of Service: 12/29/21 Summary: 1. ESTUARDO obstructive 2. CKD stage 4 obstructive Creat is improving daily, nonoliguric and not uremic Would not proceed with the PCN tube but rather watch for further renal recovery for a bit more time-the degree of hydro is minimal and may not reflect ongoing obstruction Time Spent With Patient Time: Total time spent is greater than 50% in coordination of care (as documented) at patient's floor/unit and/or counseling patient: Progress Note: Quality Stroke Does the patient have a stroke diagnosis?: No
[2021-12-30 16:29] LABS: Glucose, Whole Blood 146 mg/dL (60-115)
[2021-12-30 20:16] LABS: Glucose, Whole Blood 184 mg/dL (60-115)
[2021-12-30] MEDS: Atorvastatin Calcium 10 MG TABLET PO (20:33)
[2021-12-30] MEDS: Tamsulosin HCL 0.4 MG CAPSULE PO (20:34)
[2021-12-31] VITALS (7 sets, daily range): BP systolic 138–166; BP diastolic 68–80; PULSE 69–86; RESP 16–20; TEMP 36.7–37.2; O2SAT 95–98
[2021-12-31 07:27] LABS: Glucose, Whole Blood 156 mg/dL (60-115)
[2021-12-31] MEDS: carvediloL 12.5 MG TABLET PO ×2 (09:23→21:09)
[2021-12-31] MEDS: Sodium Bicarbonate 650 MG TABLET PO ×3 (09:23→21:08)
[2021-12-31] MEDS: Docusate Sodium 100 MG CAPSULE PO (09:23)
[2021-12-31] MEDS: Multivitamin TABLET 1 TAB PO (09:24)
[2021-12-31] MEDS: hydrALAZINE HCl 25 MG TABLET PO ×3 (09:24→21:08)
[2021-12-31] MEDS: Cyanocobalamin (Vitamin B-12) 1,000 MCG TABLET 1000 MCG PO (09:24)
[2021-12-31] MEDS: Famotidine 20 MG TABLET PO (09:24)
[2021-12-31] MEDS: Zinc Sulfate 220 MG CAPSULE PO (09:24)
[2021-12-31] MEDS: Magnesium Oxide 400 MG TABLET PO ×2 (09:24→21:09)
[2021-12-31] MEDS: amLODIPine Besylate 5 MG TABLET PO ×2 (09:24→21:08)
[2021-12-31] MEDS: Cholecalciferol (Vitamin D3) 25 MCG TABLET 50 MCG PO (09:24)
[2021-12-31] MEDS: Insulin Lispro 100 UNIT/ML 3 ML VIAL SUBCUT ×2 (09:25→15:50)
[2021-12-31] MEDS: 0.9 % Sodium Chloride Flush 3 ML SYRINGE IVFLUSH ×2 (09:25→13:58)
--- NOTE | 2021-12-31 10:29 | PM.PNNEP ---
Subjective Subjective Date of Service: 12/31/21 Interval history: seen and examined this morning follow up for renal failure no overnight events no complaints this morning. no fever, chills, abdominal pain Physical Exam Vital Signs: Vital Signs: Last Vital Signs Temp 98.7 F 12/31/21 07:59 Pulse 82 12/31/21 07:59 Resp 16 12/31/21 07:59 BP 140/69 H 12/31/21 07:59 Pulse Ox 98 12/31/21 07:59 O2 Del Method 12/31/21 07:59 O2 Flow Rate 6 12/17/21 16:45 BMI result Body Mass Index 19.9 Const: General: alert and awake Resp: Effort & Inspection: normal respiratory effort Cardio: Jugular venous distension: no JVD Rhythm: regular rhythm GI: Palpation (GI): Soft to palpation Objective Data Labs CBC & Chem 7: 12/30/21 06:59 12/30/21 06:59 Labs: Laboratory Results - last 24 hr 12/30/21 12/30/21 12/30/21 11:29 16:26 20:06 POC Glucose 193 H 146 H 184 H 12/31/21 07:19 POC Glucose 156 H Microbiology Microbiology Results: Microbiology 12/17/21 Unknown Urine Other - Kidney Left Urine Culture - Final Enterococcus raffinosus Lalitha albicans 12/16/21 22:37 Urine clean catch - Urine cowart top Urine Culture - Final Assessment & Plan Assessment and plan (1) Acute kidney injury: Status: Acute (2) Hydronephrosis: Status: Acute Plan 81 year-old man with CKD4, recurrent nephrolithiasis, colon CA s/p colostomy, essential HTN, DM2, and PTSD who presented with worsening confusion with alternating lethargy and agitated delirium for the past 2 days.? Found to have ESTUARDO with serum creatinine up to 9.7 from baseline of 3, uremia with BUN of 128, and severe metabolic acidosis with serum bicarbonate of 6 and venous pH of 7.22. With stent placement for obstructive nephropathy, his creat has slowly improved and is now down to 4.6. He is nonoliguric and uremia has cleared. Recommend: Hold off on PCN tube tomorrow [address] [address] Nephrology Progress Note Signed Patient: Ronny Vernon MR#: [id number] : 1940 Acct:[id number] Age/Sex: 81 / M Loc: .[facility] [place] 461-1 ?? ? Attending Dr: Aruna PRITCHETT cc: ~ Subjective Subjective Date of Service: 12/29/21 Interval history: seen and examined this morning follow up for renal failure confused overnight but seems to be better this morning denies any abdominal pain, fever or chills Physical Exam Vital Signs:?? Vital Signs: Last Vital Signs Temp ? 97.1 F? 12/29/21 15:27 Pulse? 70? 12/29/21 15:27 Resp ? 16? 12/29/21 15:27 BP ? 130/60? 12/29/21 15:27 Pulse Ox ? 94? 12/29/21 15:27 O2 Del Method? 12/29/21 15:27 O2 Flow Rate ? 6 ? 12/17/21 16:45 BMI result Body Mass Index ? 19.9? Const:?? Other: Obtunded.? General: cooperative, healthy appearing, comfortable, no acute distress, alert, awake and confusion? Nutritional Appearance: well nourished and thin? Orientation/consciousness: patient oriented x3 and confusion? Limitations: no limitations HEENT:?? Other: Very dry mucous membranes? Head: Yes normal to inspection and Yes atraumatic? Ears: hearing grossly normal bilaterally and external ears normal? General nose exam: Normal external nose present, no nasal discharge noted and no epistaxis? Face and sinus: Yes normal facial exam, No abrasion and No laceration? Mouth: Normal oral and palatal mucosa present, moist mucous membranes, no drooling and no muffled voice Eyes:?? Other: No scleral icterus. ? General: appearance normal, both eyes and all related structures? Periorbital: periorbital findings normal? Eyelids: Yes eyelids normal? Conjunctivae: conjunctivae normal? Pupils: Equal, round and reactive pupils present? EOM: EOMs intact bilaterally Neck:?? Neck: Yes normal visual inspection, Yes full ROM, Yes no lymphadenopathy, Yes trachea midline and Yes supple Chest:?? Chest palpation & inspection: normal inspection of the chest Resp:?? Other: Tachypneic. CTAB otherwise? Effort & Inspection: normal respiratory effort, able to speak in complete sentences and no respiratory distress? Auscultation: clear to auscultation bilaterally and diminished lung sounds Cardio:?? Jugular venous distension: no JVD? Rate: regular rate and tachycardic? Rhythm: regular rhythm? Heart sounds: S1 normal heart sound present and S2 normal heart sound present GI:?? Other: colostomy present? Inspection: Yes normal to inspection and No distended? Palpation (GI): Soft to palpation :?? Other: bain in place draining clear urine Back/Spine/Pelvis:?? Cervical Spine: normal cervical lordosis? Thoracic/Lumbar Spine: thoracic and lumbar spine normal to inspection Skin:?? General skin exam: no rashes or lesions noted Neuro:?? Other: grossly nonfocal ? General: patient oriented x3, gait normal, tone normal, moves all extremities, confusion and Unable to assess gait? Cranial nerves: Yes Equal, round and reactive pupils present? Cognition (Neuro): abnormal cognition? Gait exam (Neuro): Unable to assess gait Extrem:?? Other: No edema? General: Yes normal to inspection, Yes full ROM, Yes capillary refill normal and Yes no pedal edema Psych:?? Other: confusion,delirium,picking at clothing? Appearance: grossly normal? Mental Status: mental status grossly normal? Affect: normal affect? Attitude: cooperative? Thought process: Normal thought process present? Thought content: Normal thought content present? Insight: Good insight present (Psych) Objective Data Labs CBC & Chem 7: 12/29/21 14:55? 12/29/21 14:55? Labs: Laboratory Results - last 24 hr ? 12/28/21 12/29/21 12/29/21 ? 19:38 07:51 11:19 WBC ? ? ? RBC ? ? ? Hgb ? ? ? Hct ? ? ? MCV ? ? ? MCH ? ? ? MCHC ? ? ? RDW ? ? ? Plt Count ? ? ? MPV ? ? ? Absolute Nucleated RBC ? ? ? Nucleated RBC % (auto) ? ? ? Sodium ? ? ? Potassium ? ? ? Chloride ? ? ? Carbon Dioxide ? ? ? Anion Gap ? ? ? BUN ? ? ? Creatinine ? ? ? Estim Creat Clear Calc ? ? ? Estimated GFR ? ? ? POC Glucose ?173 H ?161 H ?190 H Random Glucose ? ? ? Calcium ? ? ? Blood Type ? ? ? Antibody Screen ? ? ? Crossmatch ? 12/29/21 12/29/21 12/29/21 ? 14:55 14:55 14:55 WBC ?6.8 ? ? RBC ?2.51 L ? ? Hgb ?6.9 L* ? ? Hct ?21.6 L ? ? MCV ?86.1 ? ? MCH ?27.5 ? ? MCHC ?31.9 ? ? RDW ?17.3 H ? ? Plt Count ?278 ? ? MPV ?10.4 ? ? Absolute Nucleated RBC ?0.000 ? ? Nucleated RBC % (auto) ?0.0 ? ? Sodium ? ?141 ? Potassium ? ?4.3 ? Chloride ? ?108 ? Carbon Dioxide ? ?21 L ? Anion Gap ? ?16 ? BUN ? ?80 H ? Creatinine ? ?4.87 H* ? Estim Creat Clear Calc ? ?10.2 ? Estimated GFR ? ?11 ? POC Glucose ? ? ? Random Glucose ? ?148 H ? Calcium ? ?8.1 L ? Blood Type ? ? ?AB Positive Antibody Screen ? ? ?NEGATIVE Crossmatch ? ? ?See Detail ? 12/29/21 ? 16:29 WBC ? RBC ? Hgb ? Hct ? MCV ? MCH ? MCHC ? RDW ? Plt Count ? MPV ? Absolute Nucleated RBC ? Nucleated RBC % (auto) ? Sodium ? Potassium ? Chloride ? Carbon Dioxide ? Anion Gap ? BUN ? Creatinine ? Estim Creat Clear Calc ? Estimated GFR ? POC Glucose ?143 H Random Glucose ? Calcium ? Blood Type ? Antibody Screen ? Crossmatch ? Microbiology Microbiology Results: Microbiology 12/17/21 Unknown ? Urine Other - Kidney Left ? Urine Culture - Final ? Enterococcus raffinosus ? Lalitha albicans 12/16/21 22:37 ? Urine clean catch - Urine cowart top ? Urine Culture - Final Procedures Date of Service Date of Service: 12/29/21 Summary: 1. ESTUARDO obstructive 2. CKD stage 4 obstructive Creat is improving daily, nonoliguric and not uremic Would not proceed with the PCN tube but rather watch for further renal recovery for a bit more time-the degree of hydro is minimal and may not reflect ongoing obstruction Time Spent With Patient Time: Total time spent is greater than 50% in coordination of care (as documented) at patient's floor/unit and/or counseling patient: Progress Note: Quality Stroke Does the patient have a stroke diagnosis?: No
--- NOTE | 2021-12-31 10:34 | PM.PNNEP ---
Subjective Subjective Date of Service: 01/01/22 Principal diagnosis: ESTUARDO Interval history: Family at bedside Appetite is better Physical Exam Vital Signs: Vital Signs: Last Vital Signs Temp 98.7 F 12/31/21 07:59 Pulse 82 12/31/21 07:59 Resp 16 12/31/21 07:59 BP 140/69 H 12/31/21 07:59 Pulse Ox 98 12/31/21 07:59 O2 Del Method 12/31/21 07:59 O2 Flow Rate 6 12/17/21 16:45 BMI result Body Mass Index 19.9 Const: General: alert Neck: Neck: Yes supple Resp: Effort & Inspection: normal respiratory effort Auscultation: clear to auscultation bilaterally Cardio: Jugular venous distension: no JVD Palpation: no palpable S3 GI: Inspection: Yes normal to inspection Auscultation: normal bowel sounds Extrem: Left upper extremity: no edema Objective Data Labs CBC & Chem 7: 01/01/22 09:02 01/01/22 09:02 Labs: Laboratory Results - last 24 hr 12/30/21 12/30/21 12/30/21 11:29 16:26 20:06 POC Glucose 193 H 146 H 184 H 12/31/21 07:19 POC Glucose 156 H Microbiology Microbiology Results: Microbiology 12/17/21 Unknown Urine Other - Kidney Left Urine Culture - Final Enterococcus raffinosus Lalitha albicans 12/16/21 22:37 Urine clean catch - Urine cowart top Urine Culture - Final Procedures Date of Service Date of Service: 12/31/21 Assessment & Plan Assessment and plan (1) Acute kidney injury: Status: Acute (2) CKD (chronic kidney disease) stage 4, GFR 15-29 ml/min: Status: Acute (3) Hydronephrosis: Status: Acute Plan 81 year-old man with CKD4, recurrent nephrolithiasis, colon CA s/p colostomy, essential HTN, DM2, and PTSD who presented with worsening confusion with alternating lethargy and agitated delirium for the past 2 days.? Found to have ESTUARDO with serum creatinine up to 9.7 from baseline of 3, uremia with BUN of 128, and severe metabolic acidosis with serum bicarbonate of 6 and venous pH of 7.22. With stent placement for obstructive nephropathy, his creat has slowly improved and is now down to 4.6. He is nonoliguric and uremia has cleared. Minimal improvement in creatinine PCN to be decided by Urology Keep I > O No indication for dialysis Progress Note: Quality Stroke Does the patient have a stroke diagnosis?: No
[2021-12-31 11:14] LABS: Glucose, Whole Blood 128 mg/dL (60-115)
--- NOTE | 2021-12-31 12:18 | MHC.CM.PN ---
Per ROUNDS discussion, Patient's Creatinine is still high and Patient is not yet ready for dc. Home with 24/7 and home PT VS STR is the goal and CM will continue to follow.
[2021-12-31 12:32] LABS: Anion Gap 12 (12-20); Blood Urea Nitrogen 76 mg/dL (9-16); Calcium 8.6 mg/dL (8.4-10.2); Carbon Dioxide 23 mmol/L (22-29); Chloride 111 mmol/L (96-108); Estimated Glomerular Filt Rate 13; Glucose Random 121 mg/dL (60-115); Potassium 4.4 mmol/L (3.3-5.1); Sodium 142 mmol/L (135-145)
[2021-12-31] MEDS: Heparin Sodium,Porcine 5,000 UNIT/ML VIAL 5000 UNIT SUBCUT (13:57)
--- NOTE | 2021-12-31 14:03 | HO.PM.IMPN ---
Subjective Subjective Date of Service: 12/31/21 Interval History: follow up for renal failure no overnight events no complaints this morning. no fever, chills, abdominal pain Review of Systems Review of Systems: Yes all other systems are reviewed and are negative Constitutional Constitutional: Denies chills and Denies fever(s) Cardiovascular Cardiovascular: Denies chest pain, Denies palpitations and Denies dyspnea Respiratory Respiratory: Denies cough and Denies dyspnea Gastrointestinal Gastrointestinal: Denies abdominal pain, Denies diarrhea, Denies nausea and Denies vomiting Endocrine Endocrine: Denies palpitations Physical Exam Vital Signs: Vital Signs: Last Vital Signs Temp 98.2 F 12/31/21 10:59 Pulse 78 12/31/21 10:59 Resp 17 12/31/21 10:59 BP 138/80 12/31/21 10:59 Pulse Ox 97 12/31/21 10:59 O2 Del Method 12/31/21 10:59 O2 Flow Rate 6 12/17/21 16:45 BMI result Body Mass Index 19.9 Appearing in no acute distress lung sounds are clear to auscultation heart regular rate rhythm, clear S1, S2 positive bowel sounds, abdomen is soft, nontender neuro patient is alert x3, no focal deficits Objective Data Active Medications Acetaminophen (Acetaminophen 325 Mg Tablet) 650 mg PO Q6H PRN PRN Reason: Pain, Mild (Pain Scale 1-3) Last Admin: 12/29/21 16:53 Dose: 650 mg Documented By: JUAREZ Acetaminophen (Acetaminophen 325 Mg Tablet) 650 mg PO ONCE PRN PRN Reason: Pain, Mild (Pain Scale 1-3) Amlodipine Besylate (Amlodipine Besylate 5 Mg Tablet) 5 mg PO BID [facility]; Protocol Last Admin: 12/31/21 09:24 Dose: 5 mg Documented By: MAEGAN Atorvastatin Calcium (Atorvastatin Calcium 10 Mg Tablet) 10 mg PO BEDTIME [facility] Last Admin: 12/30/21 20:33 Dose: 10 mg Documented By: JUAN JOSE Calcium Carbonate (Calcium Carbonate 500 Mg Tablet) 1,000 mg PO BID [facility] Last Admin: 12/31/21 09:24 Dose: 1,000 mg Documented By: MAEGAN Carvedilol (Carvedilol 12.5 Mg Tablet) 12.5 mg PO BID [facility] [place]; Protocol Last Admin: 12/31/21 09:23 Dose: 12.5 mg Documented By: MAEGAN Cyanocobalamin (Cyanocobalamin (Vitamin B-12) 1,000 Mcg Tablet) 1,000 mcg PO DAILY [facility] Last Admin: 12/31/21 09:24 Dose: 1,000 mcg Documented By: MAEGAN Dextrose (Dextrose 50 % 25 Gm/50 Ml Syringe) 25 gm IVPUSH Q15M PRN; Protocol PRN Reason: per Hypoglycemia Standing Ord. Dipyridamole/Aspirin (Aspirin/Dipyridamole Er 25/200 Cpmp.12hr) 1 cap PO BID [facility] Last Admin: 12/26/21 08:29 Dose: 1 cap Documented By: JUAREZ Docusate Sodium (Docusate Sodium 100 Mg Capsule) 100 mg PO DAILY [facility] Last Admin: 12/31/21 09:23 Dose: 100 mg Documented By: MAEGAN Famotidine (Famotidine 20 Mg Tablet) 20 mg PO DAILY [facility] Last Admin: 12/31/21 09:24 Dose: 20 mg Documented By: MAEGAN Glucose (Glucose Gel 15 Gm Gel..Gram.) 15 gm PO Q15M PRN; Protocol PRN Reason: per Hypoglycemia Standing Ord. Heparin Sodium (Porcine) (Heparin Sodium,Porcine 5,000 Unit/Ml Vial) 5,000 unit SUBCUT Q12H [facility] Last Admin: 12/31/21 13:57 Dose: 5,000 unit Documented By: MAEGAN Hydralazine HCl (Hydralazine Hcl 25 Mg Tablet) 25 mg PO TID [facility]; Protocol Last Admin: 12/31/21 13:57 Dose: 25 mg Documented By: MAEGAN Insulin Human Lispro (Insulin Lispro 100 Unit/Ml 3 Ml Vial) 0 unit SUBCUT QIDACHS [facility]; Protocol Last Admin: 12/31/21 12:18 Dose: Not Given Documented By: MAEGAN Non-Admin Reason: No Insulin Coverage Magnesium Oxide (Magnesium Oxide 400 Mg Tablet) 400 mg PO BID [facility] Last Admin: 12/31/21 09:24 Dose: 400 mg Documented By: MAEGAN Melatonin (Melatonin 3 Mg Tablet) 6 mg PO BEDTIME PRN PRN Reason: insomnia Multivitamins/Vitamin C (Multivitamin Tablet) 1 tab PO DAILY [facility] Last Admin: 12/31/21 09:24 Dose: 1 tab Documented By: MAEGAN Nystatin (Nystatin Powder 15 Gm Bottle) 1 appl TOPICAL BID [facility]; Protocol Last Admin: 12/31/21 13:47 Dose: Not Given Documented By: MAEGAN Non-Admin Reason: Patient Refused Ondansetron HCl (Ondansetron Hcl 4 Mg/2 Ml Vial) 4 mg IVPUSH Q8H PRN PRN Reason: Nausea and Vomiting Ondansetron HCl (Ondansetron Hcl 4 Mg/2 Ml Vial) 4 mg IVPUSH ONCE PRN PRN Reason: Nausea and Vomiting Pharmacy Consult (Consult Rx Perform Med Rec) 1 each MISCELLANE ONCE PRN PRN Reason: Consult order Sodium Bicarbonate (Sodium Bicarbonate 650 Mg Tablet) 650 mg PO TID [facility] Last Admin: 12/31/21 13:57 Dose: 650 mg Documented By: MAEGAN Sodium Chloride (0.9 % Sodium Chloride Flush 3 Ml Syringe) 3 ml IVFLUSH QSHIFT [facility] Last Admin: 12/31/21 13:58 Dose: 3 ml Documented By: MAEGAN Tamsulosin HCl (Tamsulosin Hcl 0.4 Mg Capsule) 0.4 mg PO BEDTIME [facility] [place] Last Admin: 12/30/21 20:34 Dose: 0.4 mg Documented By: JUAN JOSE Vitamin D (Cholecalciferol (Vitamin D3) 25 Mcg Tablet) 50 mcg PO DAILY [facility] Last Admin: 12/31/21 09:24 Dose: 50 mcg Documented By: MAEGAN Zinc Sulfate (Zinc Sulfate 220 Mg Capsule) 220 mg PO DAILY [facility] Last Admin: 12/31/21 09:24 Dose: 220 mg Documented By: MAEGAN Labs CBC & Chem 7: 12/30/21 06:59 12/31/21 11:37 Labs: Laboratory Results - last 24 hr 12/30/21 12/30/21 12/31/21 16:26 20:06 07:19 Anion Gap Estim Creat Clear Calc Estimated GFR POC Glucose 146 H 184 H 156 H Random Glucose Calcium 12/31/21 12/31/21 10:51 11:37 Anion Gap 12 Estim Creat Clear Calc 11.0 Estimated GFR 13 POC Glucose 128 H Random Glucose 121 H Calcium 8.6 Assessment and Plan (1) Metabolic encephalopathy: Status: Acute (2) Acute kidney injury: Status: Acute Plan 81 year-old man with CKD4, recurrent nephrolithiasis, colon CA s/p colostomy, essential HTN, DM2, and PTSD who presents today with worsening confusion with alternating lethargy and agitated delirium for the past 2 days.? Found to have ESTUARDO with serum creatinine up to 9.7 from baseline of 3, uremia with BUN of 128, and severe metabolic acidosis with serum bicarbonate of 6 and venous pH of 7.22. ESTUARDO on CKD4 Had cystoscopy 12/[address] Kang - cystoscopy, left stent removal,? left retrograde,left renal pelvis aspiration, left stent placement, right retrograde,? right stent placement SCr around trending down slowly nephrology, urology following chronic normocytic anemia r/t chronic dz received IV iron 12/24 procrit to be ordered by nephrology s/p 1U blood 12/29, with some improvement in H/H follow CBC hyperK resolved severe metabolic acidosis continue bicarbonate replacement mild hypernatremia resolved metabolic encephalopathy suspect due to uremia/ESTUARDO; may have toxic component from levofloxacin as well [he was prescribed this empirically for UTI as outpt]; improving. still get confused at night, but improved during the day hypoMg due to renal wasting; resolved hx CVA Aggrenox HTN continue carvedilol + hydralazine + amlodipine DM2 hold sitagliptin, give correction-dose lispro VTE ppx: SCDs attending Dr. Medel In my clinical judgment, the patient requires continued inpatient hospitalization for the following reasons: severe metabolic acidosis, ESTUARDO Quality Stroke Does the patient have a stroke diagnosis?: No VTE Prior VTE?: No VTE Risk Level:: Medical - moderate - high VTE Device Contraindication: N/A - Device Ordered VTE Drug Contraindication: N/A - Med Ordered
[2021-12-31 15:44] LABS: Glucose, Whole Blood 211 mg/dL (60-115)
[2021-12-31] MEDS: Tamsulosin HCL 0.4 MG CAPSULE PO (21:08)
[2021-12-31] MEDS: Atorvastatin Calcium 10 MG TABLET PO (21:08)
[2021-12-31 21:10] LABS: Glucose, Whole Blood 149 mg/dL (60-115)
[2022-01-01] VITALS (7 sets, daily range): BP systolic 122–160; BP diastolic 59–67; PULSE 63–80; RESP 15–17; TEMP 36.7–37.1; O2SAT 95–98
[2022-01-01] MEDS: Heparin Sodium,Porcine 5,000 UNIT/ML VIAL 5000 UNIT SUBCUT ×3 (01:24→22:34)
[2022-01-01] MEDS: 0.9 % Sodium Chloride Flush 3 ML SYRINGE IVFLUSH ×4 (01:25→23:53)
[2022-01-01] MEDS: Acetaminophen 325 MG TABLET 650 MG PO (02:58)
[2022-01-01] MEDS: Melatonin 3 MG TABLET 6 MG PO (03:52)
[2022-01-01 07:07] LABS: Glucose, Whole Blood 114 mg/dL (60-115)
[2022-01-01] MEDS: Famotidine 20 MG TABLET PO (08:13)
[2022-01-01] MEDS: Cholecalciferol (Vitamin D3) 25 MCG TABLET 50 MCG PO (08:13)
[2022-01-01] MEDS: Sodium Bicarbonate 650 MG TABLET PO ×3 (08:13→20:04)
[2022-01-01] MEDS: Cyanocobalamin (Vitamin B-12) 1,000 MCG TABLET 1000 MCG PO (08:13)
[2022-01-01] MEDS: amLODIPine Besylate 5 MG TABLET PO ×2 (08:14→20:06)
[2022-01-01] MEDS: Docusate Sodium 100 MG CAPSULE PO (08:14)
[2022-01-01] MEDS: Multivitamin TABLET 1 TAB PO (08:14)
[2022-01-01] MEDS: hydrALAZINE HCl 25 MG TABLET PO (08:14)
[2022-01-01] MEDS: Magnesium Oxide 400 MG TABLET PO ×2 (08:15→20:04)
[2022-01-01] MEDS: Zinc Sulfate 220 MG CAPSULE PO (08:15)
[2022-01-01] MEDS: carvediloL 12.5 MG TABLET PO ×2 (08:15→20:04)
[2022-01-01 09:22] LABS: Hematocrit 28.9 % (42.0-52.0); Hemoglobin 8.9 g/dl (14.0-18.0); Mean Corpuscular HGB Conc 30.8 g/dl (31.0-36.0); Mean Corpuscular Hemoglobin 27.1 pg (27.0-33.0); Mean Corpuscular Volume 88.1 fL (80.0-98.0); Mean Platelet Volume 10.4 fL (9.4-12.4); Platelet Count 364 X10*3/uL (160-400); Red Blood Count 3.28 X10*6/uL (4.60-5.80); Red Cell Distribution Width 17.2 % (11.0-16.0); White Blood Count 8.1 X10*3/uL (4.8-10.8)
[2022-01-01 09:51] LABS: Anion Gap 17 (12-20); Blood Urea Nitrogen 74 mg/dL (9-16); Calcium 9.1 mg/dL (8.4-10.2); Carbon Dioxide 20 mmol/L (22-29); Chloride 110 mmol/L (96-108); Creatinine Clr Calc Pharmacy 11.3; Estimated Glomerular Filt Rate 13; Glucose Random 126 mg/dL (60-115); Potassium 4.8 mmol/L (3.3-5.1); Sodium 142 mmol/L (135-145)
--- NOTE | 2022-01-01 10:39 | PM.PNNEP ---
Subjective Subjective Date of Service: 01/02/22 Principal diagnosis: ESTUARDO Interval history: Events noted Physical Exam Vital Signs: Vital Signs: Last Vital Signs Temp 98.8 F 01/01/22 07:34 Pulse 76 01/01/22 09:58 Resp 17 01/01/22 07:34 BP 160/67 H 01/01/22 09:58 Pulse Ox 98 01/01/22 09:58 O2 Del Method 01/01/22 07:34 O2 Flow Rate 6 12/17/21 16:45 BMI result Body Mass Index 19.9 Const: General: alert Neck: Neck: Yes supple Resp: Effort & Inspection: normal respiratory effort Auscultation: clear to auscultation bilaterally Cardio: Jugular venous distension: no JVD Palpation: no palpable S3 GI: Inspection: Yes normal to inspection Auscultation: normal bowel sounds Extrem: Left upper extremity: no edema Objective Data Labs CBC & Chem 7: 01/01/22 09:02 01/02/22 05:44 Labs: Laboratory Results - last 24 hr 12/31/21 12/31/21 12/31/21 10:51 11:37 15:36 WBC RBC Hgb Hct MCV MCH MCHC RDW Plt Count MPV Absolute Nucleated RBC Nucleated RBC % (auto) Sodium 142 Potassium 4.4 Chloride 111 H Carbon Dioxide 23 Anion Gap 12 BUN 76 H Creatinine 4.50 H* Estim Creat Clear Calc 11.0 Estimated GFR 13 POC Glucose 128 H 211 H Random Glucose 121 H Calcium 8.6 12/31/21 01/01/22 01/01/22 21:07 06:57 09:02 WBC 8.1 RBC 3.28 L Hgb 8.9 L Hct 28.9 L MCV 88.1 MCH 27.1 MCHC 30.8 L RDW 17.2 H Plt Count 364 D MPV 10.4 Absolute Nucleated RBC 0.000 Nucleated RBC % (auto) 0.0 Sodium Potassium Chloride Carbon Dioxide Anion Gap BUN Creatinine Estim Creat Clear Calc Estimated GFR POC Glucose 149 H 114 Random Glucose Calcium 01/01/22 09:02 WBC RBC Hgb Hct MCV MCH MCHC RDW Plt Count MPV Absolute Nucleated RBC Nucleated RBC % (auto) Sodium 142 Potassium 4.8 Chloride 110 H Carbon Dioxide 20 L Anion Gap 17 BUN 74 H Creatinine 4.38 H* Estim Creat Clear Calc 11.3 Estimated GFR 13 POC Glucose Random Glucose 126 H Calcium 9.1 Microbiology Microbiology Results: Microbiology 12/17/21 Unknown Urine Other - Kidney Left Urine Culture - Final Enterococcus raffinosus Lalitha albicans 12/16/21 22:37 Urine clean catch - Urine cowart top Urine Culture - Final Procedures Date of Service Date of Service: 01/01/22 Assessment & Plan Assessment and plan (1) Acute kidney injury: Status: Acute (2) CKD (chronic kidney disease) stage 4, GFR 15-29 ml/min: Status: Acute (3) Hydronephrosis: Status: Acute Plan 81 year-old man with CKD4, recurrent nephrolithiasis, colon CA s/p colostomy, essential HTN, DM2, and PTSD who presented with worsening confusion with alternating lethargy and agitated delirium for the past 2 days.? Found to have ESTUARDO with serum creatinine up to 9.7 from baseline of 3, uremia with BUN of 128, and severe metabolic acidosis with serum bicarbonate of 6 and venous pH of 7.22. With stent placement for obstructive nephropathy, his creat has slowly improved and is now down to 4.6. He is nonoliguric and uremia has cleared. Minimal improvement in creatinine Follow up with Urology Keep I > O No indication for dialysis Time Spent With Patient Time: Total time spent is greater than 50% in coordination of care (as documented) at patient's floor/unit and/or counseling patient: Progress Note: Quality Stroke Does the patient have a stroke diagnosis?: No
[2022-01-01 10:53] LABS: Glucose, Whole Blood 154 mg/dL (60-115)
[2022-01-01] MEDS: oxyCODONE HCl Immed Release 5 MG TABLET PO (11:04)
[2022-01-01] MEDS: Insulin Lispro 100 UNIT/ML 3 ML VIAL SUBCUT ×3 (11:04→20:03)
--- NOTE | 2022-01-01 11:45 | P.PNIM_ITS ---
Subjective Subjective Date of Service: 01/01/22 Interval History: follow up for renal failure no overnight events no complaints this morning. no fever, chills, abdominal pain Review of Systems Review of Systems: Yes all other systems are reviewed and are negative Constitutional Constitutional: Denies chills and Denies fever(s) Cardiovascular Cardiovascular: Denies chest pain, Denies palpitations and Denies dyspnea Respiratory Respiratory: Denies cough and Denies dyspnea Gastrointestinal Gastrointestinal: Denies abdominal pain, Denies diarrhea, Denies nausea and Denies vomiting Endocrine Endocrine: Denies palpitations Physical Exam Vital Signs: Vital Signs: Last Vital Signs Temp 98.2 F 01/01/22 11:38 Pulse 65 01/01/22 11:38 Resp 17 01/01/22 11:38 BP 136/61 01/01/22 11:38 Pulse Ox 95 01/01/22 11:38 O2 Del Method 01/01/22 11:38 O2 Flow Rate 6 12/17/21 16:45 BMI result Body Mass Index 19.9 Appearing in no acute distress lung sounds are clear to auscultation heart regular rate rhythm, clear S1, S2 positive bowel sounds, abdomen is soft, nontender neuro patient is alert x3, no focal deficits Objective Data Active Medications Acetaminophen (Acetaminophen 325 Mg Tablet) 650 mg PO Q6H PRN PRN Reason: Pain, Mild (Pain Scale 1-3) Last Admin: 01/01/22 02:58 Dose: 650 mg Documented By: PINEDA Acetaminophen (Acetaminophen 325 Mg Tablet) 650 mg PO ONCE PRN PRN Reason: Pain, Mild (Pain Scale 1-3) Amlodipine Besylate (Amlodipine Besylate 5 Mg Tablet) 5 mg PO BID [facility]; Protocol Last Admin: 01/01/22 08:14 Dose: 5 mg Documented By: SHAI Atorvastatin Calcium (Atorvastatin Calcium 10 Mg Tablet) 10 mg PO BEDTIME [facility] Last Admin: 12/31/21 21:08 Dose: 10 mg Documented By: BRENDA Calcium Carbonate (Calcium Carbonate 500 Mg Tablet) 1,000 mg PO BID [facility] Last Admin: 01/01/22 08:15 Dose: 1,000 mg Documented By: SHAI Carvedilol (Carvedilol 12.5 Mg Tablet) 12.5 mg PO BID [facility]; Protocol Last Admin: 01/01/22 08:15 Dose: 12.5 mg Documented By: SHAI Cyanocobalamin (Cyanocobalamin (Vitamin B-12) 1,000 Mcg Tablet) 1,000 mcg PO DAILY [facility] Last Admin: 01/01/22 08:13 Dose: 1,000 mcg Documented By: SHAI Dextrose (Dextrose 50 % 25 Gm/50 Ml Syringe) 25 gm IVPUSH Q15M PRN; Protocol PRN Reason: per Hypoglycemia Standing Ord. Dipyridamole/Aspirin (Aspirin/Dipyridamole Er 25/200 Cpmp.12hr) 1 cap PO BID [facility] Last Admin: 01/01/22 08:14 Dose: 1 cap Documented By: SHAI Docusate Sodium (Docusate Sodium 100 Mg Capsule) 100 mg PO DAILY [facility] Last Admin: 01/01/22 08:14 Dose: 100 mg Documented By: SHAI Famotidine (Famotidine 20 Mg Tablet) 20 mg PO DAILY [facility] Last Admin: 01/01/22 08:13 Dose: 20 mg Documented By: SHAI Glucose (Glucose Gel 15 Gm Gel..Gram.) 15 gm PO Q15M PRN; Protocol PRN Reason: per Hypoglycemia Standing Ord. Heparin Sodium (Porcine) (Heparin Sodium,Porcine 5,000 Unit/Ml Vial) 5,000 unit SUBCUT Q12H [facility] Last Admin: 01/01/22 11:05 Dose: 5,000 unit Documented By: SHAI Hydralazine HCl (Hydralazine Hcl 50 Mg Tablet) 50 mg PO TID [facility]; Protocol Last Admin: 01/01/22 08:39 Dose: Not Given Documented By: SHAI Non-Admin Reason: Headache Insulin Human Lispro (Insulin Lispro 100 Unit/Ml 3 Ml Vial) 0 unit SUBCUT QIDACHS [facility]; Protocol Last Admin: 01/01/22 11:04 Dose: 2 unit Documented By: SHAI Magnesium Oxide (Magnesium Oxide 400 Mg Tablet) 400 mg PO BID [facility] Last Admin: 01/01/22 08:15 Dose: 400 mg Documented By: SHAI Melatonin (Melatonin 3 Mg Tablet) 6 mg PO BEDTIME PRN PRN Reason: insomnia Last Admin: 01/01/22 03:52 Dose: 6 mg Documented By: PINEDA Multivitamins/Vitamin C (Multivitamin Tablet) 1 tab PO DAILY [facility] Last Admin: 01/01/22 08:14 Dose: 1 tab Documented By: SHAI Nystatin (Nystatin Powder 15 Gm Bottle) 1 appl TOPICAL BID [facility]; Protocol Last Admin: 01/01/22 08:39 Dose: Not Given Documented By: SHAI Non-Admin Reason: Patient Refused Ondansetron HCl (Ondansetron Hcl 4 Mg/2 Ml Vial) 4 mg IVPUSH Q8H PRN PRN Reason: Nausea and Vomiting Ondansetron HCl (Ondansetron Hcl 4 Mg/2 Ml Vial) 4 mg IVPUSH ONCE PRN PRN Reason: Nausea and Vomiting Oxycodone HCl (Oxycodone Hcl Immed Release 5 Mg Tablet) 5 mg PO Q4H PRN PRN Reason: Pain, Severe (Pain Scale 7-10) Last Admin: 01/01/22 11:04 Dose: 5 mg Documented By: SHAI Pharmacy Consult (Consult Rx Perform Med Rec) 1 each MISCELLANE ONCE PRN PRN Reason: Consult order Sodium Bicarbonate (Sodium Bicarbonate 650 Mg Tablet) 650 mg PO TID [facility] Last Admin: 01/01/22 08:13 Dose: 650 mg Documented By: SHAI Sodium Chloride (0.9 % Sodium Chloride Flush 3 Ml Syringe) 3 ml IVFLUSH QSHIFT [facility] Last Admin: 01/01/22 08:13 Dose: 3 ml Documented By: SHAI Tamsulosin HCl (Tamsulosin Hcl 0.4 Mg Capsule) 0.4 mg PO BEDTIME [facility] Last Admin: 12/31/21 21:08 Dose: 0.4 mg Documented By: BRENDA Vitamin D (Cholecalciferol (Vitamin D3) 25 Mcg Tablet) 50 mcg PO DAILY [facility] Last Admin: 01/01/22 08:13 Dose: 50 mcg Documented By: SHAI Zinc Sulfate (Zinc Sulfate 220 Mg Capsule) 220 mg PO DAILY [facility] Last Admin: 01/01/22 08:15 Dose: 220 mg Documented By: SHAI Labs CBC & Chem 7: 01/01/22 09:02 01/01/22 09:02 Labs: Laboratory Results - last 24 hr 11/12/31/21 12/31/21 11:37 15:36 21:07 MCV MCH MCHC RDW Plt Count MPV Absolute Nucleated RBC Nucleated RBC % (auto) Anion Gap 12 Estim Creat Clear Calc 11.0 Estimated GFR 13 POC Glucose 211 H 149 H Random Glucose 121 H Calcium 8.6 01/01/22 01/01/22 01/01/22 06:57 09:02 09:02 MCV 88.1 MCH 27.1 MCHC 30.8 L RDW 17.2 H Plt Count 364 D MPV 10.4 Absolute Nucleated RBC 0.000 Nucleated RBC % (auto) 0.0 Anion Gap 17 Estim Creat Clear Calc 11.3 Estimated GFR 13 POC Glucose 114 Random Glucose 126 H Calcium 9.1 01/01/22 10:43 MCV MCH MCHC RDW Plt Count MPV Absolute Nucleated RBC Nucleated RBC % (auto) Anion Gap Estim Creat Clear Calc Estimated GFR POC Glucose 154 H Random Glucose Calcium Assessment and Plan (1) Metabolic encephalopathy: Status: Acute (2) Acute kidney injury: Status: Acute Plan 81 year-old man with CKD4, recurrent nephrolithiasis, colon CA s/p colostomy, essential HTN, DM2, and PTSD who presents today with worsening confusion with alternating lethargy and agitated delirium for the past 2 days.? Found to have ESTUARDO with serum creatinine up to 9.7 from baseline of 3, uremia with BUN of 128, and severe metabolic acidosis with serum bicarbonate of 6 and venous pH of 7.22. ESTUARDO on CKD4 Had cystoscopy 12/[address] Kang - cystoscopy, left stent removal,? left retrograde, left renal pelvis aspiration, left stent placement, right retrograde,?right stent placement SCr trending down slowly nephrology, urology following chronic normocytic anemia r/t chronic dz received IV iron 12/24 procrit to be ordered by nephrology s/p 1U blood 12/29, with some improvement in H/H follow CBC hyperK resolved severe metabolic acidosis continue bicarbonate replacement mild hypernatremia resolved metabolic encephalopathy suspect due to uremia/ESTUARDO may have toxic component from levofloxacin as well [he was prescribed this empirically for UTI as outpt]; improving. still get confused at night, but improved during the day hypoMg due to renal wasting resolved hx CVA Aggrenox HTN continue carvedilol + hydralazine + amlodipine DM2 hold sitagliptin, give correction-dose lispro VTE ppx: SCDs attending Dr. Gianfranco CASEY awaiting safe disposition In my clinical judgment, the patient requires continued inpatient hospitalization for the following reasons: severe metabolic acidosis, ESTUARDO, waiting for safe disposition Quality Stroke Does the patient have a stroke diagnosis?: No VTE Prior VTE?: No VTE Risk Level:: Medical - moderate - high VTE Device Contraindication: N/A - Device Ordered VTE Drug Contraindication: N/A - Med Ordered
--- NOTE | 2022-01-01 11:45 | MHC.CM.PN ---
Per ROUNDS discussion, Patient is medically cleared for dc to SNF/STR today. [facility] does not have a bed for Patient([place]/NOT insurance only). CM met with Patient and his at bedside and they are agreeable to a SNF search bur WILL NOT CONSIDER RETURNING TO [facility]. CM has let PROBATION COUNSELOR know that presently, there is no SNF bed offer. CM will follow.
--- NOTE | 2022-01-01 11:55 | MHC.CM.PN ---
Per CM Research Fellow, Patient DOES have Medicare/secondary to [place]. CM has updated SNF referrals.
[2022-01-01] MEDS: hydrALAZINE HCl 50 MG TABLET PO ×2 (14:28→20:05)
[2022-01-01 15:41] LABS: Glucose, Whole Blood 162 mg/dL (60-115)
[2022-01-01 19:52] LABS: Glucose, Whole Blood 251 mg/dL (60-115)
[2022-01-01] MEDS: Atorvastatin Calcium 10 MG TABLET PO (20:04)
[2022-01-01] MEDS: Tamsulosin HCL 0.4 MG CAPSULE PO (20:04)
[2022-01-01] MEDS: Nystatin Powder 15 GM BOTTLE 1 APPL TOPICAL (20:37)
[2022-01-02] MEDS: oxyCODONE HCl Immed Release 5 MG TABLET PO (03:04)
[2022-01-02 04:00] VITALS: BP 150/72; PULSE 77; RESP 16; TEMP 36.6; O2SAT 98
[2022-01-02 06:42] LABS: Anion Gap 16 (12-20); Blood Urea Nitrogen 76 mg/dL (9-16); Calcium 8.9 mg/dL (8.4-10.2); Carbon Dioxide 20 mmol/L (22-29); Chloride 110 mmol/L (96-108); Glucose Random 134 mg/dL (60-115); Potassium 5.1 mmol/L (3.3-5.1); Sodium 141 mmol/L (135-145)
[2022-01-02 06:47] LABS: Creatinine Clr Calc Pharmacy 11.5; Estimated Glomerular Filt Rate 13
[2022-01-02 07:20] LABS: Glucose, Whole Blood 120 mg/dL (60-115)
[2022-01-02 07:55] VITALS: BP 143/73; PULSE 68; RESP 16; TEMP 36.8; O2SAT 97
[2022-01-02] MEDS: Magnesium Oxide 400 MG TABLET PO ×2 (08:49→20:44)
[2022-01-02] MEDS: Zinc Sulfate 220 MG CAPSULE PO (08:49)
[2022-01-02] MEDS: Sodium Bicarbonate 650 MG TABLET PO ×3 (08:49→20:44)
[2022-01-02] MEDS: amLODIPine Besylate 5 MG TABLET PO ×2 (08:49→20:45)
[2022-01-02] MEDS: carvediloL 12.5 MG TABLET PO ×2 (08:49→20:44)
[2022-01-02] MEDS: Cyanocobalamin (Vitamin B-12) 1,000 MCG TABLET 1000 MCG PO (08:49)
[2022-01-02] MEDS: hydrALAZINE HCl 50 MG TABLET PO ×3 (08:50→20:44)
[2022-01-02] MEDS: 0.9 % Sodium Chloride Flush 3 ML SYRINGE IVFLUSH ×3 (08:50→21:05)
[2022-01-02] MEDS: Famotidine 20 MG TABLET PO (08:50)
[2022-01-02] MEDS: Cholecalciferol (Vitamin D3) 25 MCG TABLET 50 MCG PO (08:50)
[2022-01-02] MEDS: Docusate Sodium 100 MG CAPSULE PO (08:50)
[2022-01-02] MEDS: Multivitamin TABLET 1 TAB PO (08:50)
[2022-01-02] MEDS: Nystatin Powder 15 GM BOTTLE 1 APPL TOPICAL ×2 (09:02→21:05)
[2022-01-02 09:45] VITALS: BP 143/73; PULSE 68; O2SAT 97
--- NOTE | 2022-01-02 09:45 | MHC.CLN ---
F/U PO INTAKE VARIABLE BETWEEN 10-75% DIET RX: 2000DM-APPROPRIATE PT RECEIVING ENSURE PLUS HIGH PROTEIN BID TO INCREASE KCALS PROVIDES 700KCALS, 40G PROTEIN CONTINUE TO MONITOR PO INTAKE CLOSELY RECOMMEND WEEKLY WEIGHT
--- NOTE | 2022-01-02 10:07 | P.PNIM_ITS ---
Subjective Subjective Date of Service: 01/02/22 Interval History: seen/examined, no new issues, doing well overall, reanl function improving Review of Systems no fever no new confusion Physical Exam Vital Signs: Vital Signs: Last Vital Signs Temp 98.2 F 01/02/22 07:55 Pulse 68 01/02/22 09:45 Resp 16 01/02/22 07:55 BP 143/73 H 01/02/22 09:45 Pulse Ox 97 01/02/22 09:45 O2 Del Method 01/02/22 07:55 O2 Flow Rate 6 12/17/21 16:45 BMI result Body Mass Index 19.9 Const: Other: Gen: ill appearing, alert and more coherent HEENT: sclera anicteric, moist mucus membranes Neck: supple Lungs: clear to auscultation bilaterally Heart: regular rate and rhythm, no murmurs Abd: soft, non-tender, non-distended, colostomy in place draining liquid brown stool Ext: no edema Skin: rash on chest wall, old Neuro: somnolent, awakens only briefly Psych: impaired insight Objective Data Active Medications Acetaminophen (Acetaminophen 325 Mg Tablet) 650 mg PO Q6H PRN PRN Reason: Pain, Mild (Pain Scale 1-3) Last Admin: 01/01/22 02:58 Dose: 650 mg Documented By: PINEDA Acetaminophen (Acetaminophen 325 Mg Tablet) 650 mg PO ONCE PRN PRN Reason: Pain, Mild (Pain Scale 1-3) Amlodipine Besylate (Amlodipine Besylate 5 Mg Tablet) 5 mg PO BID [facility]; Protocol Last Admin: 01/02/22 08:49 Dose: 5 mg Documented By: ANGELIKA Atorvastatin Calcium (Atorvastatin Calcium 10 Mg Tablet) 10 mg PO BEDTIME [facility] Last Admin: 01/01/22 20:04 Dose: 10 mg Documented By: FARIBA-NELLIE Calcium Carbonate (Calcium Carbonate 500 Mg Tablet) 1,000 mg PO BID [facility] Last Admin: 01/02/22 08:49 Dose: 1,000 mg Documented By: ANGELIKA Carvedilol (Carvedilol 12.5 Mg Tablet) 12.5 mg PO BID [facility]; Protocol Last Admin: 01/02/22 08:49 Dose: 12.5 mg Documented By: ANGELIKA Cyanocobalamin (Cyanocobalamin (Vitamin B-12) 1,000 Mcg Tablet) 1,000 mcg PO DAILY [facility] Last Admin: 01/02/22 08:49 Dose: 1,000 mcg Documented By: ANGELIKA Dextrose (Dextrose 50 % 25 Gm/50 Ml Syringe) 25 gm IVPUSH Q15M PRN; Protocol PRN Reason: per Hypoglycemia Standing Ord. Dipyridamole/Aspirin (Aspirin/Dipyridamole Er 25/200 Cpmp.12hr) 1 cap PO BID [facility] Last Admin: 01/02/22 08:49 Dose: 1 cap Documented By: ANGELIKA Docusate Sodium (Docusate Sodium 100 Mg Capsule) 100 mg PO DAILY [facility] Last Admin: 01/02/22 08:50 Dose: 100 mg Documented By: ANGELIKA Famotidine (Famotidine 20 Mg Tablet) 20 mg PO DAILY [facility] Last Admin: 01/02/22 08:50 Dose: 20 mg Documented By: ANGELIKA Glucose (Glucose Gel 15 Gm Gel..Gram.) 15 gm PO Q15M PRN; Protocol PRN Reason: per Hypoglycemia Standing Ord. Heparin Sodium (Porcine) (Heparin Sodium,Porcine 5,000 Unit/Ml Vial) 5,000 unit SUBCUT Q12H [facility] Last Admin: 01/01/22 22:34 Dose: 5,000 unit Documented By: INDIRA Hydralazine HCl (Hydralazine Hcl 50 Mg Tablet) 50 mg PO TID [facility]; Protocol Last Admin: 01/02/22 08:50 Dose: 50 mg Documented By: ANGELIKA Insulin Human Lispro (Insulin Lispro 100 Unit/Ml 3 Ml Vial) 0 unit SUBCUT QIDACHS [facility]; Protocol Last Admin: 01/02/22 07:41 Dose: Not Given Documented By: ANGELIKA Non-Admin Reason: No Insulin Coverage Magnesium Oxide (Magnesium Oxide 400 Mg Tablet) 400 mg PO BID [facility] Last Admin: 01/02/22 08:49 Dose: 400 mg Documented By: ANGELIKA Melatonin (Melatonin 3 Mg Tablet) 6 mg PO BEDTIME PRN PRN Reason: insomnia Last Admin: 01/01/22 03:52 Dose: 6 mg Documented By: PINEDA Multivitamins/Vitamin C (Multivitamin Tablet) 1 tab PO DAILY [facility] Last Admin: 01/02/22 08:50 Dose: 1 tab Documented By: ANGELIKA Nystatin (Nystatin Powder 15 Gm Bottle) 1 appl TOPICAL BID [facility]; Protocol Last Admin: 01/02/22 09:02 Dose: 1 appl Documented By: ANGELIKA Ondansetron HCl (Ondansetron Hcl 4 Mg/2 Ml Vial) 4 mg IVPUSH Q8H PRN PRN Reason: Nausea and Vomiting Ondansetron HCl (Ondansetron Hcl 4 Mg/2 Ml Vial) 4 mg IVPUSH ONCE PRN PRN Reason: Nausea and Vomiting Oxycodone HCl (Oxycodone Hcl Immed Release 5 Mg Tablet) 5 mg PO Q4H PRN PRN Reason: Pain, Severe (Pain Scale 7-10) Last Admin: 01/02/22 03:04 Dose: 5 mg Documented By: INDIRA Pharmacy Consult (Consult Rx Perform Med Rec) 1 each MISCELLANE ONCE PRN PRN Reason: Consult order Sodium Bicarbonate (Sodium Bicarbonate 650 Mg Tablet) 650 mg PO TID [facility] Last Admin: 01/02/22 08:49 Dose: 650 mg Documented By: ANGELIKA Sodium Chloride (0.9 % Sodium Chloride Flush 3 Ml Syringe) [facility] Last Admin: 01/02/22 08:50 Dose: 3 ml Documented By: ANGELIKA Tamsulosin HCl (Tamsulosin Hcl 0.4 Mg Capsule) 0.4 mg PO BEDTIME [facility] Last Admin: 01/01/22 20:04 Dose: 0.4 mg Documented By: INDIRA Vitamin D (Cholecalciferol (Vitamin D3) 25 Mcg Tablet) 50 mcg PO DAILY [facility] Last Admin: 01/02/22 08:50 Dose: 50 mcg Documented By: ANGELIKA Zinc Sulfate (Zinc Sulfate 220 Mg Capsule) 220 mg PO DAILY [facility] Last Admin: 01/02/22 08:49 Dose: 220 mg Documented By: ANGELIKA Labs CBC & Chem 7: 01/01/22 09:02 01/02/22 05:44 Labs: Laboratory Results - last 24 hr 01/01/22 01/01/22 01/01/22 10:43 15:38 19:40 Anion Gap Estim Creat Clear Calc Estimated GFR POC Glucose 154 H 162 H 251 H Random Glucose Calcium 01/02/22 01/02/22 05:44 07:15 Anion Gap 16 Estim Creat Clear Calc 11.5 Estimated GFR 13 POC Glucose 120 H Random Glucose 134 H Calcium 8.9 Assessment and Plan (1) Metabolic encephalopathy: Status: Acute (2) Acute kidney injury: Status: Acute Plan 81 year-old man with CKD4, recurrent nephrolithiasis, colon CA s/p colostomy, essential HTN, DM2, and PTSD who presents today with worsening confusion with alternating lethargy and agitated delirium for the past 2 days.? Found to have DELFINO with serum creatinine up to 9.7 from baseline of 3, uremia with BUN of 128, and severe metabolic acidosis with serum bicarbonate of 6 and venous pH of 7.22. DELFINO on CKD4 On 12/17 Dr. Kang did cystoscopy, left stent removal,? left retrograde, left renal pelvis aspiration, left stent placement, right retrograde,?right stent placement SCr trending down slowly, no plan for nephrostomy tubes nephrology, urology following anemia of chronic disease, d/t CKD chronic normocytic anemia s/p 1U blood 12/29, with some improvement in H/H procrit hyperK resolved severe metabolic acidosis continue bicarbonate replacement mild hypernatremia resolved metabolic encephalopathy suspect due to uremia/DELFINO may have toxic component from levofloxacin as well [he was prescribed this empirically for UTI as outpt]; improving. still get confused at night, but clear during the day hypoMg due to renal wasting resolved hx CVA Aggrenox HTN continue carvedilol + hydralazine + amlodipine DM2 hold sitagliptin, give correction-dose lispro VTE ppx: SCDs DISPO need for inapatient: ongoing managment for delfino Quality Stroke Does the patient have a stroke diagnosis?: No VTE Prior VTE?: No VTE Risk Level:: Medical - moderate - high VTE Device Contraindication: N/A - Device Ordered VTE Drug Contraindication: N/A - Med Ordered
--- NOTE | 2022-01-02 10:19 | MHC.CM.PN ---
Patient's Medicare # is [id number].
[2022-01-02 11:14] LABS: Glucose, Whole Blood 187 mg/dL (60-115)
--- NOTE | 2022-01-02 11:23 | MHC.CM.PN ---
CM met with Patient and his at bedside to discuss dc planning. CM explained that MD has indicated in ROUNDS that Patient is medically cleared for dc today. PT is recommending home with services now AND Patient now also has two accepting SNFs ([facility] & [facility])now that Medicare information is available which opened up more SNF options for Patient. Per Patient's , Patient and she will not consider either SNF unless they are offering a private room. also prefers that Patient return home but she stated, not yet. ( explains that there are electrical issues at home that need repairing). CM addressed IMM with Patient and his (original given to Patient and and a copy placed on the chart) and they have chosen to appeal the dc (CM Administration & MD have been notified). CM will follow.
[2022-01-02] MEDS: Insulin Lispro 100 UNIT/ML 3 ML VIAL SUBCUT ×2 (11:24→21:04)
[2022-01-02] MEDS: Heparin Sodium,Porcine 5,000 UNIT/ML VIAL 5000 UNIT SUBCUT ×2 (11:24→23:25)
[2022-01-02 11:42] VITALS: BP 135/62; PULSE 63; RESP 16; TEMP 36.8; O2SAT 96
--- NOTE | 2022-01-02 11:54 | PM.PNNEP ---
Subjective Subjective Date of Service: 01/10/22 Principal diagnosis: ESTUARDO Interval history: Events noted Physical Exam Vital Signs: Vital Signs: Last Vital Signs Temp 98.2 F 01/02/22 11:42 Pulse 63 01/02/22 11:42 Resp 16 01/02/22 11:42 BP 135/62 01/02/22 11:42 Pulse Ox 96 01/02/22 11:42 O2 Del Method 01/02/22 11:42 O2 Flow Rate 6 12/17/21 16:45 BMI result Body Mass Index 19.9 Const: General: alert Neck: Neck: Yes supple Resp: Effort & Inspection: normal respiratory effort Auscultation: clear to auscultation bilaterally Cardio: Jugular venous distension: no JVD Palpation: no palpable S3 GI: Inspection: Yes normal to inspection Auscultation: normal bowel sounds Extrem: Left upper extremity: no edema Objective Data Labs CBC & Chem 7: 01/06/22 10:21 01/07/22 08:46 Labs: Laboratory Results - last 24 hr 01/01/22 01/01/22 01/02/22 15:38 19:40 05:44 Sodium 141 Potassium 5.1 Chloride 110 H Carbon Dioxide 20 L Anion Gap 16 BUN 76 H Creatinine 4.33 H* Estim Creat Clear Calc 11.5 Estimated GFR 13 POC Glucose 162 H 251 H Random Glucose 134 H Calcium 8.9 01/02/22 01/02/22 07:15 11:05 Sodium Potassium Chloride Carbon Dioxide Anion Gap BUN Creatinine Estim Creat Clear Calc Estimated GFR POC Glucose 120 H 187 H Random Glucose Calcium Microbiology Microbiology Results: Microbiology 12/17/21 Unknown Urine Other - Kidney Left Urine Culture - Final Enterococcus raffinosus Lalitha albicans 12/16/21 22:37 Urine clean catch - Urine cowart top Urine Culture - Final Procedures Date of Service Date of Service: 02/01/22 Assessment & Plan Assessment and plan (1) Acute kidney injury: Status: Acute (2) CKD (chronic kidney disease) stage 4, GFR 15-29 ml/min: Status: Acute (3) Hydronephrosis: Status: Acute Plan 81 year-old man with CKD4, recurrent nephrolithiasis, colon CA s/p colostomy, essential HTN, DM2, and PTSD who presented with worsening confusion with alternating lethargy and agitated delirium for the past 2 days.? Found to have ESTUARDO with serum creatinine up to 9.7 from baseline of 3, uremia with BUN of 128, and severe metabolic acidosis with serum bicarbonate of 6 and venous pH of 7.22. With stent placement for obstructive nephropathy, his creat has slowly improved and is now down to 4.6. He is nonoliguric and uremia has cleared. Slow improvement in creatinine Follow up with Urology Keep I > O No indication for dialysis Time Spent With Patient Time: Total time spent is greater than 50% in coordination of care (as documented) at patient's floor/unit and/or counseling patient: Progress Note: Quality Stroke Does the patient have a stroke diagnosis?: No
[2022-01-02 16:00] VITALS: BP 162/71; PULSE 69; RESP 18; TEMP 37.2; O2SAT 99
[2022-01-02 16:30] LABS: Glucose, Whole Blood 123 mg/dL (60-115)
[2022-01-02 19:23] VITALS: BP 124/57; PULSE 73; RESP 18; TEMP 36.3; O2SAT 97
[2022-01-02 20:01] LABS: Glucose, Whole Blood 230 mg/dL (60-115)
[2022-01-02] MEDS: Atorvastatin Calcium 10 MG TABLET PO (20:45)
[2022-01-02] MEDS: Tamsulosin HCL 0.4 MG CAPSULE PO (20:45)
[2022-01-03] VITALS: BP 130/64; PULSE 68; RESP 14; TEMP 37; O2SAT 96
[2022-01-03 03:46] VITALS: BP 127/59; PULSE 79; RESP 18; TEMP 36.8; O2SAT 98
[2022-01-03] MEDS: oxyCODONE HCl Immed Release 5 MG TABLET PO ×2 (06:16→20:37)
[2022-01-03 07:44] LABS: Glucose, Whole Blood 118 mg/dL (60-115)
[2022-01-03 08:00] VITALS: BP 139/87; PULSE 80; RESP 17; TEMP 36.9; O2SAT 98
--- NOTE | 2022-01-03 08:10 | P.PNNP_ITS ---
Subjective Subjective Date of Service: 01/03/22 Principal diagnosis: ESTUARDO Interval history: Events noted Physical Exam Vital Signs: Vital Signs: Last Vital Signs Temp 98.3 F 01/03/22 03:46 Pulse 79 01/03/22 03:46 Resp 18 01/03/22 03:46 BP 127/59 L 01/03/22 03:46 Pulse Ox 98 01/03/22 03:46 O2 Del Method 01/03/22 03:46 O2 Flow Rate 6 12/17/21 16:45 BMI result Body Mass Index 19.9 Const: Other: Gen: ill appearing, alert and more coherent HEENT: sclera anicteric, moist mucus membranes Neck: supple Lungs: clear to auscultation bilaterally Heart: regular rate and rhythm, no murmurs Abd: soft, non-tender, non-distended, colostomy in place draining liquid brown stool Ext: no edema Skin: rash on chest wall, old Neuro: somnolent, awakens only briefly Psych: impaired insight General: cooperative, healthy appearing, comfortable, no acute distress, alert, awake and confusion Nutritional Appearance: well nourished and thin Orientation/consciousness: patient oriented x3 and confusion Limitations: no limitations HEENT: Head: Yes normal to inspection and Yes atraumatic Ears: hearing grossly normal bilaterally and external ears normal General nose exam: Normal external nose present, no nasal discharge noted and no epistaxis Face and sinus: Yes normal facial exam, No abrasion and No laceration Mouth: Normal oral and palatal mucosa present, moist mucous membranes, no drooling and no muffled voice Eyes: General: appearance normal, both eyes and all related structures Periorbital: periorbital findings normal Eyelids: Yes eyelids normal Conjunctivae: conjunctivae normal Pupils: Equal, round and reactive pupils present EOM: EOMs intact bilaterally Neck: Neck: Yes normal visual inspection, Yes full ROM, Yes no lymphadenopat hy, Yes trachea midline and Yes supple Chest: Chest palpation & inspection: normal inspection of the chest Resp: Effort & Inspection: normal respiratory effort, able to speak in complete sentences and no respiratory distress Auscultation: clear to auscultation bilaterally and diminished lung sounds Cardio: Jugular venous distension: no JVD Palpation: no palpable S3 R ate: regular rate and tachycardic Rhythm: regular rhythm Heart sounds: S1 normal heart sound present and S2 normal heart sound present GI: Inspection: Yes normal to inspection and No distended Palpation (GI): Soft to palpation Auscultation: normal bowel sounds Back/Spine/Pelvis: Cervical Spine: normal cervical lordosis Thoracic/Lumbar Spine: thoracic and lumbar spine normal to inspection Skin: General skin exam: no rashes or lesions noted Neuro: General: patient oriented x3, gait normal, tone normal, moves all extremities, confusion and Unable to assess gait Cranial nerves: Yes Equal, round and reactive pupils present Cognition (Neuro): abnormal cognition Gait exam (Neuro): Unable to assess gait Extrem: General: Yes normal to inspection, Yes full ROM, Yes capillary refill normal and Yes no pedal edema Left upper extremity: no edema Psych: Appearance: grossly normal Mental Status: mental status grossly normal Affect: normal affect Attitude: cooperative Thought process: Normal thought process present Thought content: Normal thought content present Insight: Good insight present (Psych) Objective Data Labs CBC & Chem 7: 01/01/22 09:02 01/02/22 05:44 Labs: Laboratory Results - last 24 hr 01/02/22 01/02/22 01/02/22 11:05 16:19 19:57 POC Glucose 187 H 123 H 230 H 01/03/22 07:40 POC Glucose 118 H Microbiology Microbiology Results: Microbiology 12/17/21 Unknown Urine Other - Kidney Left Urine Culture - Final Enterococcus raffinosus Lalitha albicans 12/16/21 22:37 Urine clean catch - Urine cowart top Urine Culture - Final Procedures Date of Service Date of Service: 01/03/22 Assessment & Plan Assessment and plan (1) Acute kidney injury: Status: Acute (2) CKD (chronic kidney disease) stage 4, GFR 15-29 ml/min: Status: Acute (3) Hydronephrosis: Status: Acute Plan 81 year-old man with CKD4, recurrent nephrolithiasis, colon CA s/p colostomy, essential HTN, DM2, and PTSD who presents today with worsening confusion with alternating lethargy and agitated delirium for the past 2 days.? Found to have ESTUARDO with serum creatinine up to 9.7 from baseline of 3, uremia with BUN of 128, and severe metabolic acidosis with serum bicarbonate of 6 and venous pH of 7.22. ESTUARDO on CKD4 On 12/17 Dr. Kang did cystoscopy, left stent removal,? left retrograde, left renal pelvis aspiration, left stent placement, right retrograde,?right stent placement SCr trending down slowly, no plan for nephrostomy tubes nephrology, urology following anemia of chronic disease, d/t CKD chronic normocytic anemia s/p 1U blood 12/29, with some improvement in H/H procrit creat continues to slowly improve no new suggestions Progress Note: Quality Stroke Does the patient have a stroke diagnosis?: No
[2022-01-03] MEDS: Cholecalciferol (Vitamin D3) 25 MCG TABLET 50 MCG PO (08:59)
[2022-01-03] MEDS: Magnesium Oxide 400 MG TABLET PO ×2 (08:59→20:27)
[2022-01-03] MEDS: amLODIPine Besylate 5 MG TABLET PO ×2 (09:00→20:26)
[2022-01-03] MEDS: Famotidine 20 MG TABLET PO (09:00)
[2022-01-03] MEDS: Sodium Bicarbonate 650 MG TABLET PO ×3 (09:00→20:37)
[2022-01-03] MEDS: carvediloL 12.5 MG TABLET PO (09:00)
[2022-01-03] MEDS: hydrALAZINE HCl 50 MG TABLET PO ×3 (09:00→20:27)
[2022-01-03] MEDS: Zinc Sulfate 220 MG CAPSULE PO (09:01)
[2022-01-03] MEDS: Docusate Sodium 100 MG CAPSULE PO (09:01)
[2022-01-03] MEDS: Cyanocobalamin (Vitamin B-12) 1,000 MCG TABLET 1000 MCG PO (09:01)
[2022-01-03] MEDS: Multivitamin TABLET 1 TAB PO (09:01)
--- NOTE | 2022-01-03 09:15 | HO.PM.IMPN ---
Subjective Subjective Date of Service: 01/03/22 Interval History: seen/examined, no new issues, doing well overall, reanl function improving, no new issues Review of Systems no fever no new confusion Physical Exam Vital Signs: Vital Signs: Last Vital Signs Temp 98.5 F 01/03/22 08:00 Pulse 80 01/03/22 08:00 Resp 17 01/03/22 08:00 BP 139/87 01/03/22 08:00 Pulse Ox 98 01/03/22 08:00 O2 Del Method 01/03/22 08:00 O2 Flow Rate 6 12/17/21 16:45 BMI result Body Mass Index 19.9 Const: Other: Gen: ill appearing, alert and more coherent HEENT: sclera anicteric, moist mucus membranes Neck: supple Lungs: clear to auscultation bilaterally Heart: regular rate and rhythm, no murmurs Abd: soft, non-tender, non-distended, colostomy in place draining liquid brown stool Ext: no edema Skin: rash on chest wall, old Neuro: somnolent, awakens only briefly Psych: impaired insight Objective Data Active Medications Acetaminophen (Acetaminophen 325 Mg Tablet) 650 mg PO Q6H PRN PRN Reason: Pain, Mild (Pain Scale 1-3) Last Admin: 01/01/22 02:58 Dose: 650 mg Documented By: PINEDA Acetaminophen (Acetaminophen 325 Mg Tablet) 650 mg PO ONCE PRN PRN Reason: Pain, Mild (Pain Scale 1-3) Amlodipine Besylate (Amlodipine Besylate 5 Mg Tablet) 5 mg PO BID [facility]; Protocol Last Admin: 01/02/22 20:45 Dose: 5 mg Documented By: LEANN Atorvastatin Calcium (Atorvastatin Calcium 10 Mg Tablet) 10 mg PO BEDTIME [facility] Last Admin: 01/02/22 20:45 Dose: 10 mg Documented By: LEANN Calcium Carbonate (Calcium Carbonate 500 Mg Tablet) 1,000 mg PO BID [facility] Last Admin: 01/02/22 20:44 Dose: 1,000 mg Documented By: LEANN Carvedilol (Carvedilol 12.5 Mg Tablet) 12.5 mg PO BID [facility]; Protocol Last Admin: 01/02/22 20:44 Dose: 12.5 mg Documented By: LEANN Cyanocobalamin (Cyanocobalamin (Vitamin B-12) 1,000 Mcg Tablet) 1,000 mcg PO DAILY [facility] Last Admin: 01/02/22 08:49 Dose: 1,000 mcg Documented By: ANGELIKA Dextrose (Dextrose 50 % 25 Gm/50 Ml Syringe) 25 gm IVPUSH Q15M PRN; Protocol PRN Reason: per Hypoglycemia Standing Ord. Dipyridamole/Aspirin (Aspirin/Dipyridamole Er 25/200 Cpmp.12hr) 1 cap PO BID [facility] Last Admin: 01/02/22 20:51 Dose: 1 cap Documented By: LEANN Docusate Sodium (Docusate Sodium 100 Mg Capsule) 100 mg PO DAILY [facility] Last Admin: 01/02/22 08:50 Dose: 100 mg Documented By: ANGELIKA Famotidine (Famotidine 20 Mg Tablet) 20 mg PO DAILY [facility] Last Admin: 01/02/22 08:50 Dose: 20 mg Documented By: ANGELIKA Glucose (Glucose Gel 15 Gm Gel..Gram.) 15 gm PO Q15M PRN; Protocol PRN Reason: per Hypoglycemia Standing Ord. Heparin Sodium (Porcine) (Heparin Sodium,Porcine 5,000 Unit/Ml Vial) 5,000 unit SUBCUT Q12H [facility] Last Admin: 01/02/22 23:25 Dose: 5,000 unit Documented By: LEANN Hydralazine HCl (Hydralazine Hcl 50 Mg Tablet) 50 mg PO TID [facility]; Protocol Last Admin: 01/02/22 20:44 Dose: 50 mg Documented By: LEANN Insulin Human Lispro (Insulin Lispro 100 Unit/Ml 3 Ml Vial) 0 unit SUBCUT QIDACHS [facility]; Protocol Last Admin: 01/03/22 07:47 Dose: Not Given Documented By: GRAHAM Non-Admin Reason: No Insulin Coverage Magnesium Oxide (Magnesium Oxide 400 Mg Tablet) 400 mg PO BID [facility] Last Admin: 01/02/22 20:44 Dose: 400 mg Documented By: LEANN Melatonin (Melatonin 3 Mg Tablet) 6 mg PO BEDTIME PRN PRN Reason: insomnia Last Admin: 01/01/22 03:52 Dose: 6 mg Documented By: PINEDA Multivitamins/Vitamin C (Multivitamin Tablet) 1 tab PO DAILY [facility] Last Admin: 01/02/22 08:50 Dose: 1 tab Documented By: ANGELIKA Nystatin (Nystatin Powder 15 Gm Bottle) 1 appl TOPICAL BID [facility]; Protocol Last Admin: 01/02/22 21:05 Dose: 1 appl Documented By: LEANN Ondansetron HCl (Ondansetron Hcl 4 Mg/2 Ml Vial) 4 mg IVPUSH Q8H PRN PRN Reason: Nausea and Vomiting Ondansetron HCl (Ondansetron Hcl 4 Mg/2 Ml Vial) 4 mg IVPUSH ONCE PRN PRN Reason: Nausea and Vomiting Oxycodone HCl (Oxycodone Hcl Immed Release 5 Mg Tablet) 5 mg PO Q4H PRN PRN Reason: Pain, Severe (Pain Scale 7-10) Last Admin: 01/03/22 06:16 Dose: 5 mg Documented By: LEANN Pharmacy Consult (Consult Rx Perform Med Rec) 1 each MISCELLANE ONCE PRN PRN Reason: Consult order Sodium Bicarbonate (Sodium Bicarbonate 650 Mg Tablet) 650 mg PO TID [facility] Last Admin: 01/02/22 20:44 Dose: 650 mg Documented By: LEANN Sodium Chloride (0.9 % Sodium Chloride Flush 3 Ml Syringe) 3 ml IVFLUSH QSHIFT [facility] Last Admin: 01/02/22 21:05 Dose: 3 ml Documented By: LEANN Tamsulosin HCl (Tamsulosin Hcl 0.4 Mg Capsule) 0.4 mg PO BEDTIME [facility] Last Admin: 01/02/22 20:45 Dose: 0.4 mg Documented By: LEANN Vitamin D (Cholecalciferol (Vitamin D3) 25 Mcg Tablet) 50 mcg PO DAILY [facility] Last Admin: 01/02/22 08:50 Dose: 50 mcg Documented By: ANGELIKA Zinc Sulfate (Zinc Sulfate 220 Mg Capsule) 220 mg PO DAILY [facility] Last Admin: 01/02/22 08:49 Dose: 220 mg Documented By: ANGELIKA Labs CBC & Chem 7: 01/01/22 09:02 01/02/22 05:44 Labs: Laboratory Results - last 24 hr 01/02/22 01/02/22 01/02/22 11:05 16:19 19:57 POC Glucose 187 H 123 H 230 H 01/03/22 07:40 POC Glucose 118 H Assessment and Plan (1) Metabolic encephalopathy: Status: Acute (2) Acute kidney injury: Status: Acute Plan 81 year-old man with CKD4, recurrent nephrolithiasis, colon CA s/p colostomy, essential HTN, DM2, and PTSD who presents today with worsening confusion with alternating lethargy and agitated delirium for the past 2 days.? Found to have ESTUARDO with serum creatinine up to 9.7 from baseline of 3, uremia with BUN of 128, and severe metabolic acidosis with serum bicarbonate of 6 and venous pH of 7.22. ESTUARDO on CKD4 On 12/17 Dr. Kang did cystoscopy, left stent removal,? left retrograde, left renal pelvis aspiration, left stent placement, right retrograde,?right stent placement SCr trending down slowly, no plan for nephrostomy tubes nephrology, urology following Chronic urinary retention--with difficult bain insertion, leave in at this time anemia of chronic disease, d/t CKD chronic normocytic anemia s/p 1U blood 12/29, with some improvement in H/H procrit hyperK resolved severe metabolic acidosis continue bicarbonate replacement mild hypernatremia resolved metabolic encephalopathy suspect due to uremia/ESTUARDO may have toxic component from levofloxacin as well [he was prescribed this empirically for UTI as outpt]; improving. still get confused at night, but clear during the day hypoMg due to renal wasting resolved hx CVA Aggrenox HTN continue carvedilol + hydralazine + amlodipine DM2 hold sitagliptin, give correction-dose lispro VTE ppx: SCDs DISPO need for inpatient: ongoing management for estuardo, patient is appealing discharge Quality Stroke Does the patient have a stroke diagnosis?: No VTE Prior VTE?: No VTE Risk Level:: Medical - moderate - high VTE Device Contraindication: N/A - Device Ordered VTE Drug Contraindication: N/A - Med Ordered
[2022-01-03 11:12] LABS: Glucose, Whole Blood 216 mg/dL (60-115)
[2022-01-03 11:41] VITALS: BP 135/77; PULSE 75; RESP 16; TEMP 37.2; O2SAT 98
[2022-01-03] MEDS: Insulin Lispro 100 UNIT/ML 3 ML VIAL SUBCUT ×3 (12:20→20:38)
[2022-01-03] MEDS: Heparin Sodium,Porcine 5,000 UNIT/ML VIAL 5000 UNIT SUBCUT (12:21)
[2022-01-03] MEDS: 0.9 % Sodium Chloride Flush 3 ML SYRINGE IVFLUSH ×2 (12:21→20:38)
[2022-01-03] MEDS: Nystatin Powder 15 GM BOTTLE 1 APPL TOPICAL (12:24)
[2022-01-03 15:46] VITALS: BP 125/57; PULSE 66; RESP 19; TEMP 36.4; O2SAT 97
[2022-01-03 16:31] LABS: Glucose, Whole Blood 185 mg/dL (60-115)
[2022-01-03 19:33] VITALS: BP 147/66; PULSE 64; RESP 19; TEMP 36.3; O2SAT 98
[2022-01-03 19:47] LABS: Glucose, Whole Blood 176 mg/dL (60-115)
[2022-01-03] MEDS: Tamsulosin HCL 0.4 MG CAPSULE PO (20:26)
[2022-01-03] MEDS: Melatonin 3 MG TABLET 6 MG PO (20:27)
[2022-01-03] MEDS: Atorvastatin Calcium 10 MG TABLET PO (20:27)
[2022-01-04] VITALS (7 sets, daily range): BP systolic 123–165; BP diastolic 54–68; PULSE 61–85; RESP 14–20; TEMP 36–37; O2SAT 94–99
[2022-01-04] MEDS: Heparin Sodium,Porcine 5,000 UNIT/ML VIAL 5000 UNIT SUBCUT ×3 (00:44→21:22)
[2022-01-04 07:27] LABS: Glucose, Whole Blood 132 mg/dL (60-115)
--- NOTE | 2022-01-04 08:04 | P.PNNP_ITS ---
Subjective Subjective Date of Service: 01/04/22 Principal diagnosis: ESTUARDO Interval history: seen/examined, no new issues, doing well overall, reanl function improving, no new issues Physical Exam Vital Signs: Vital Signs: Last Vital Signs Temp 96.8 F 01/04/22 03:09 Pulse 63 01/04/22 03:09 Resp 18 01/04/22 03:09 BP 143/63 H 01/04/22 03:09 Pulse Ox 94 01/04/22 03:09 O2 Del Method 01/04/22 03:09 O2 Flow Rate 6 12/17/21 16:45 BMI result Body Mass Index 19.9 Const: Other: Gen: ill appearing, alert and more coherent HEENT: sclera anicteric, moist mucus membranes Neck: supple Lungs: clear to auscultation bilaterally Heart: regular rate and rhythm, no murmurs Abd: soft, non-tender, non-distended, colostomy in place draining liquid brown stool Ext: no edema Skin: rash on chest wall, old Neuro: somnolent, awakens only briefly Psych: impaired insight General: cooperative, healthy appearing, comfortable, no acute distress, alert, awake and confusion Nutritional Appearance: well nourished and thin Orientation/consciousness: patient oriented x3 and confusion Limitations: no limitations HEENT: Head: Yes normal to inspection and Yes atraumatic Ears: hearing grossly normal bilaterally and external ears normal General nose exam: Normal external nose present, no nasal discharge noted and no epistaxis Face and sinus: Yes normal facial exam, No abrasion and No laceration Mouth: Normal oral and palatal mucosa present, moist mucous membranes, no drooling and no muffled voice Eyes: General: appearance normal, both eyes and all related structures Periorbital: periorbital findings normal Eyelids: Yes eyelids normal Conjunctivae: conjunctivae normal Pupils: Equal, round and reactive pupils present EOM: EOMs intact bilaterally Neck: Neck: Yes normal visual inspection, Yes full ROM, Yes no lymphadenopathy, Yes trachea midline and Yes supple Chest: Chest palpation & inspection: normal inspection of the chest Resp: Effort & Inspection: normal respiratory effort, able to speak in complete sentences and no respiratory distress Auscultation: clear to auscultation bilaterally and diminished lung sounds Cardio: Jugular venous distension: no JVD Palpation: no palpable S3 Rate: regular rate and tachycardic Rhythm: regular rhythm Heart sounds: S1 normal heart sound present and S2 normal heart sound present GI: Inspection: Yes normal to inspection and No distended Palpation (GI): Soft to palpation Auscultation: normal bowel sounds Back/Spine/Pelvis: Cervical Spine: normal cervical lordosis Thoracic/Lumbar Spine: thoracic and lumbar spine normal to inspection Skin: General skin exam: no rashes or lesions noted Neuro: General: patient oriented x3, gait normal, tone normal, moves all extremities, confusion and Unable to assess gait Cranial nerves: Yes Equal, round and reactive pupils present Cognition (Neuro): abnormal cognition Gait exam (Neuro): Unable to assess gait Extrem: General: Yes normal to inspection, Yes full ROM, Yes capillary refill normal and Yes no pedal edema Left upper extremity: no edema Psych: Appearance: grossly normal Mental Status: mental status grossly n ormal Affect: normal affect Attitude: cooperative Thought process: Normal thought process present Thought content: Normal thought content present Insight: Good insight present (Psych) Objective Data Labs CBC & Chem 7: 01/01/22 09:02 01/02/22 05:44 Labs: Laboratory Results - last 24 hr 01/03/22 01/03/22 01/03/22 11:09 16:28 19:43 POC Glucose 216 H 185 H 176 H 01/04/22 07:23 POC Glucose 132 H Microbiology Microbiology Results: Microbiology 12/17/21 Unknown Urine Other - Kidney Left Urine Culture - Final Enterococcus raffinosus Lalitha albicans 12/16/21 22:37 Urine clean catch - Urine cowart top Urine Culture - Final Procedures Date of Service Date of Service: 01/04/22 Assessment & Plan Assessment and plan (1) Metabolic encephalopathy: Status: Acute (2) Acute kidney injury: Status: Acute Plan 81 year-old man with CKD4, recurrent nephrolithiasis, colon CA s/p colostomy, essential HTN, DM2, and PTSD who presents today with worsening confusion with alternating lethargy and agitated delirium for the past 2 days.? Found to have ESTUARDO with serum creatinine up to 9.7 from baseline of 3, uremia with BUN of 128, and severe metabolic acidosis with serum bicarbonate of 6 and venous pH of 7.22. ESTUARDO on CKD4 On 12/17 Dr. Kang did cystoscopy, left stent removal,? left retrograde, left renal pelvis aspiration, left stent placement, right retrograde,?right stent placement SCr trending down slowly, no plan for nephrostomy tubes nephrology, urology following repeat labs today last labs 01-02 Progress Note: Quality Stroke Does the patient have a stroke diagnosis?: No
[2022-01-04] MEDS: Multivitamin TABLET 1 TAB PO (08:50)
[2022-01-04] MEDS: Magnesium Oxide 400 MG TABLET PO ×2 (08:50→21:23)
[2022-01-04] MEDS: Cholecalciferol (Vitamin D3) 25 MCG TABLET 50 MCG PO (08:50)
[2022-01-04] MEDS: amLODIPine Besylate 5 MG TABLET PO ×2 (08:51→21:23)
[2022-01-04] MEDS: hydrALAZINE HCl 50 MG TABLET PO ×3 (08:51→21:23)
[2022-01-04] MEDS: Docusate Sodium 100 MG CAPSULE PO (08:51)
[2022-01-04] MEDS: Sodium Bicarbonate 650 MG TABLET PO ×3 (08:51→21:22)
[2022-01-04] MEDS: carvediloL 12.5 MG TABLET PO ×2 (08:51→21:23)
[2022-01-04] MEDS: Cyanocobalamin (Vitamin B-12) 1,000 MCG TABLET 1000 MCG PO (08:51)
[2022-01-04] MEDS: Zinc Sulfate 220 MG CAPSULE PO (08:51)
[2022-01-04] MEDS: Famotidine 20 MG TABLET PO (08:51)
[2022-01-04] MEDS: Nystatin Powder 15 GM BOTTLE 1 APPL TOPICAL ×2 (09:05→21:24)
[2022-01-04] MEDS: 0.9 % Sodium Chloride Flush 3 ML SYRINGE IVFLUSH (09:05)
[2022-01-04 09:14] LABS: Anion Gap 20 (12-20); Blood Urea Nitrogen 84 mg/dL (9-16); Calcium 8.6 mg/dL (8.4-10.2); Carbon Dioxide 18 mmol/L (22-29); Chloride 108 mmol/L (96-108); Creatinine Clr Calc Pharmacy 10.3; Estimated Glomerular Filt Rate 12; Glucose Random 166 mg/dL (60-115); Potassium 4.8 mmol/L (3.3-5.1); Sodium 141 mmol/L (135-145)
--- NOTE | 2022-01-04 09:59 | P.PNIM_ITS ---
Subjective Subjective Date of Service: 01/04/22 Interval History: seen/examined, no new issues, no new issues, doing ok Review of Systems no fever no new confusion Physical Exam Vital Signs: Vital Signs: Last Vital Signs Temp 97.8 F 01/04/22 08:00 Pulse 72 01/04/22 08:00 Resp 20 01/04/22 08:00 BP 148/68 H 01/04/22 08:00 Pulse Ox 97 01/04/22 08:00 O2 Del Method 01/04/22 08:00 O2 Flow Rate 6 12/17/21 16:45 BMI result Body Mass Index 19.9 Const: Other: Gen: ill appearing, alert and more coherent HEENT: sclera anicteric, moist mucus membranes Neck: supple Lungs: clear to auscultation bilaterally Heart: regular rate and rhythm, no murmurs Abd: soft, non-tender, non-distended, colostomy in place draining liquid brown s tool Ext: no edema Skin: rash on chest wall, old Neuro: somnolent, awakens only briefly Psych: impaired insight Objective Data Active Medications Acetaminophen (Acetaminophen 325 Mg Tablet) 650 mg PO Q6H PRN PRN Reason: Pain, Mild (Pain Scale 1-3) Last Admin: 01/01/22 02:58 Dose: 650 mg Documented By: PINEDA Acetaminophen (Acetaminophen 325 Mg Tablet) 650 mg PO ONCE PRN PRN Reason: Pain, Mild (Pain Scale 1-3) Amlodipine Besylate (Amlodipine Besylate 5 Mg Tablet) 5 mg PO BID [facility]; Protocol Last Admin: 01/04/22 08:51 Dose: 5 mg Documented By: GRAHAM Atorvastatin Calcium (Atorvastatin Calcium 10 Mg Tablet) 10 mg PO BEDTIME [facility] Last Admin: 01/03/22 20:27 Dose: 10 mg Documented By: DESROMaria Calcium Carbonate (Calcium Carbonate 500 Mg Tablet) 1,000 mg PO BID [facility] Last Admin: 01/04/22 08:51 Dose: 1,000 mg Documented By: GRAHAM Carvedilol (Carvedilol 12.5 Mg Tablet) 12.5 mg PO BID [facility]; Protocol Last Admin: 01/04/22 08:51 Dose: 12.5 mg Documented By: GRAHAM Cyanocobalamin (Cyanocobalamin (Vitamin B-12) 1,000 Mcg Tablet) 1,000 mcg PO DAILY [facility] Last Admin: 01/04/22 08:51 Dose: 1,000 mcg Documented By: GRAHAM Dextrose (Dextrose 50 % 25 Gm/50 Ml Syringe) 25 gm IVPUSH Q15M PRN; Protocol PRN Reason: per Hypoglycemia Standing Ord. Dipyridamole/Aspirin (Aspirin/Dipyridamole Er 25/200 Cpmp.12hr) 1 cap PO BID [facility] Last Admin: 01/04/22 08:50 Dose: 1 cap Documented By: GRAHAM Docusate Sodium (Docusate Sodium 100 Mg Capsule) 100 mg PO DAILY [facility] Last Admin: 01/04/22 08:51 Dose: 100 mg Documented By: GRAHAM Famotidine (Famotidine 20 Mg Tablet) 20 mg PO DAILY [facility] Last Admin: 01/04/22 08:51 Dose: 20 mg Documented By: GRAHAM Glucose (Glucose Gel 15 Gm Gel..Gram.) 15 gm PO Q15M PRN; Protocol PRN Reason: per Hypoglycemia Standing Ord. Heparin Sodium (Porcine) (Heparin Sodium,Porcine 5,000 Unit/Ml Vial) 5,000 unit SUBCUT Q12H [facility] Last Admin: 01/04/22 00:44 Dose: 5,000 unit Documented By: JUAN Hydralazine HCl (Hydralazine Hcl 50 Mg Tablet) 50 mg PO TID [facility]; Protocol Last Admin: 01/04/22 08:51 Dose: 50 mg Documented By: GRAHAM Insulin Human Lispro (Insulin Lispro 100 Unit/Ml 3 Ml Vial) 0 unit SUBCUT QIDACHS [facility]; Protocol Last Admin: 01/04/22 07:30 Dose: Not Given Documented By: GRAHAM Non-Admin Reason: No Insulin Coverage Magnesium Oxide (Magnesium Oxide 400 Mg Tablet) 400 mg PO BID [facility] Last Admin: 01/04/22 08:50 Dose: 400 mg Documented By: GRAHAM Melatonin (Melatonin 3 Mg Tablet) 6 mg PO BEDTIME PRN PRN Reason: insomnia Last Admin: 01/03/22 20:27 Dose: 6 mg Documented By: JUAN Multivitamins/Vitamin C (Multivitamin Tablet) 1 tab PO DAILY [facility] Last Admin: 01/04/22 08:50 Dose: 1 tab Documented By: GRAHAM Nystatin (Nystatin Powder 15 Gm Bottle) 1 appl TOPICAL BID [facility]; Protocol Last Admin: 01/04/22 09:05 Dose: 1 appl Documented By: GRAHAM Ondansetron HCl (Ondansetron Hcl 4 Mg/2 Ml Vial) 4 mg IVPUSH Q8H PRN PRN Reason: Nausea and Vomiting Ondansetron HCl (Ondansetron Hcl 4 Mg/2 Ml Vial) 4 mg IVPUSH ONCE PRN PRN Reason: Nausea and Vomiting Oxycodone HCl (Oxycodone Hcl Immed Release 5 Mg Tablet) 5 mg PO Q4H PRN PRN Reason: Pain, Severe (Pain Scale 7-10) Last Admin: 01/03/22 20:37 Dose: 5 mg Documented By: JUAN Pharmacy Consult (Consult Rx Perform Med Rec) 1 each MISCELLANE ONCE PRN PRN Reason: Consult order Sodium Bicarbonate (Sodium Bicarbonate 650 Mg Tablet) 650 mg PO TID [facility] Last Admin: 01/04/22 08:51 Dose: 650 mg Documented By: GRAHAM Sodium Chloride (0.9 % Sodium Chloride Flush 3 Ml Syringe) [facility] Last Admin: 01/04/22 09:05 Dose: 3 ml Documented By: GRAHAM Tamsulosin HCl (Tamsulosin Hcl 0.4 Mg Capsule) 0.4 mg PO BEDTIME [facility] Last Admin: 01/03/22 20:26 Dose: 0.4 mg Documented By: JUAN Vitamin D (Cholecalciferol (Vitamin D3) 25 Mcg Tablet) 50 mcg PO DAILY [facility] Last Admin: 01/04/22 08:50 Dose: 50 mcg Documented By: GRAHAM Zinc Sulfate (Zinc Sulfate 220 Mg Capsule) 220 mg PO DAILY [facility] Last Admin: 01/04/22 08:51 Dose: 220 mg Documented By: GRAHAM Labs CBC & Chem 7: 01/01/22 09:02 01/04/22 08:17 Labs: Laboratory Results - last 24 hr 01/03/22 01/03/22 01/03/22 11:09 16:28 19:43 Anion Gap Estim Creat Clear Calc Estimated GFR POC Glucose 216 H 185 H 176 H Random Glucose Calcium 01/04/22 01/04/22 07:23 08:17 Anion Gap 20 Estim Creat Clear Calc 10.3 Estimated GFR 12 POC Glucose 132 H Random Glucose 166 H Calcium 8.6 Assessment and Plan (1) Metabolic encephalopathy: Status: Acute (2) Acute kidney injury: Status: Acute Plan 81 year-old man with CKD4, recurrent nephrolithiasis, colon CA s/p colostomy, essential HTN, DM2, and PTSD who presents today with worsening confusion with alternating lethargy and agitated delirium for the past 2 days.? Found to have DELFINO with serum creatinine up to 9.7 from baseline of 3, uremia with BUN of 128, and severe metabolic acidosis with serum bicarbonate of 6 and venous pH of 7.22. DELFINO on CKD4 On 12/17 Dr. Kang did cystoscopy, left stent removal,? left retrograde, left r enal pelvis aspiration, left stent placement, right retrograde,?right stent placement SCr trending down slowly, no plan for nephrostomy tubes nephrology, urology following [place] stable at 4+ Chronic urinary retention--with difficult bain insertion, leave in at this time anemia of chronic disease, d/t CKD chronic normocytic anemia s/p 1U blood 12/29, with some improvement in H/H procrit hyperK resolved severe metabolic acidosis continue bicarbonate replacement mild hypernatremia resolved metabolic encephalopathy suspect due to uremia/DELFINO may have toxic component from levofloxacin as well [he was prescribed this empirically for UTI as outpt]; improving. still get confused at night, but clear during the day hypoMg due to renal wasting resolved hx CVA Aggrenox HTN continue carvedilol + hydralazine + amlodipine DM2 hold sitagliptin, give correction-dose lispro VTE ppx: SCDs DISPO want to take him home need for inpatient: ongoing management for delfino, patient is appealing discharge Quality Stroke Does the patient have a stroke diagnosis?: No VTE Prior VTE?: No VTE Risk Level:: Medical - moderate - high VTE Device Contraindication: N/A - Device Ordered VTE Drug Contraindication: N/A - Med Ordered
[2022-01-04 11:26] LABS: Glucose, Whole Blood 206 mg/dL (60-115)
--- NOTE | 2022-01-04 11:40 | MHC.CLN ---
F/U PO INTAKE CONTINUES VARIABLE BETWEEN 10-100% DIET RX: 2000DM-APPROPRIATE PT RECEIVING ENSURE PLUS HIGH PROTEIN BID TO INCREASE KCALS. PROVIDES 700KCALS, 40G PROTEIN. SKIN WITH STAGE I TO COCCYX. CONTINUE TO MONITOR PO INTAKE CLOSELY.
[2022-01-04] MEDS: Insulin Lispro 100 UNIT/ML 3 ML VIAL SUBCUT ×2 (12:02→21:23)
--- NOTE | 2022-01-04 15:47 | MHC.CM.PN ---
Addendum entered by Humaira Bradshaw 01/05/22 10:47: CM RECEIVED A CALL FROM THE LIAISON FROM [facility], SHE REPORTS SHE REVIEWED UPDATES AND PT NO LONGER QUALIFIES FOR STR UNDER THE MEDICARE GUIDELINES. PER PT NOTE, PT SHOULD DC HOME WITH SERVICES Addendum entered by Humaira Bradshaw 01/05/22 09:09: [facility] RECEIVED A CALL FROM [facility] ([phone]) WHO REQUESTED CLINICAL UPDATES BE FAXED TO [phone] UPDATES WERE FAXED SHE ALSO INQUIRED ABOUT PTS DC STATUS SHE WAS INFORMED PTS APPEALED THE DC AND A DECISION WAS PENDING [place] LEFT MARGARITO A THIS MORNING INFORMING HER OF PTS APPEAL STATUS AND INTENT TO DC THIS MORNING Original Note: PT HAS LOST HIS APPEAL SO MUST DC TOMORROW BY 1200 MESSAGE SENT TO [facility] TO DETERMINE IF THEY WILL HAVE A BED FOR HIM
[2022-01-04 16:08] LABS: Glucose, Whole Blood 138 mg/dL (60-115)
[2022-01-04 19:34] LABS: Glucose, Whole Blood 207 mg/dL (60-115)
[2022-01-04] MEDS: Atorvastatin Calcium 10 MG TABLET PO (21:23)
[2022-01-04] MEDS: Tamsulosin HCL 0.4 MG CAPSULE PO (21:23)
[2022-01-05] MEDS: 0.9 % Sodium Chloride Flush 3 ML SYRINGE IVFLUSH ×3 (01:03→20:43)
[2022-01-05 03:39] VITALS: BP 157/72; PULSE 97; RESP 20; TEMP 36.7; O2SAT 98
--- NOTE | 2022-01-05 07:19 | PM.PNNEP ---
Subjective Subjective Date of Service: 01/05/22 Principal diagnosis: ESTUARDO Interval history: seen/examined, no new issues, no new issues, doing ok Physical Exam Vital Signs: Vital Signs: Last Vital Signs Temp 98.0 F 01/05/22 03:39 Pulse 97 01/05/22 03:39 Resp 20 01/05/22 03:39 BP 157/72 H 01/05/22 03:39 Pulse Ox 98 01/05/22 03:39 O2 Del Method 01/05/22 03:39 O2 Flow Rate 6 12/17/21 16:45 BMI result Body Mass Index 19.9 Const: Other: Gen: ill appearing, alert and more coherent HEENT: sclera anicteric, moist mucus membranes Neck: supple Lungs: clear to auscultation bilaterally Heart: regular rate and rhythm, no murmurs Abd: soft, non-tender, non-distended, colostomy in place draining liquid brown stool Ext: no edema Skin: rash on chest wall, old Neuro: somnolent, awakens only briefly Psych: impaired insight General: cooperative, healthy appearing, comfortable, no acute distress, alert, awake and confusion Nutritional Appearance: well nourished and thin Orientation/consciousness: patient oriented x3 and confusion Limitations: no limitations HEENT: Head: Yes normal to inspection and Yes atraumatic Ears: hearing grossly normal bilaterally and external ears normal General nose exam: Normal external nose present, no nasal discharge noted and no epistaxis Face and sinus: Yes normal facial exam, No abrasion and No laceration Mouth: Normal oral and palatal mucosa present, moist mucous membranes, no drooling and no muffled voice Eyes: General: appearance normal, both eyes and all related structures Periorbital: periorbital findings normal Eyelids: Yes eyelids normal Conjunctivae: conjunctivae normal Pupils: Equal, round and reactive pupils present EOM: EOMs intact bilaterally Neck: Neck: Yes normal visual inspection, Yes full ROM, Yes no lymphadenopathy, Yes trachea midline and Yes supple Chest: Chest palpation & inspection: normal inspection of the chest Resp: Effort & Inspection: normal respiratory effort, able to speak in complete sentences and no respiratory distress Auscultation: clear to auscultation bilaterally and diminished lung sounds Cardio: Jugular venous distension: no JVD Palpation: no palpable S3 Rate: regular rate and tachycardic Rhythm: regular rhythm Heart sounds: S1 normal heart sound present and S2 normal heart sound present GI: Inspection: Yes normal to inspection and No distended Palpation (GI): Soft to palpation Auscultation: normal bowel sounds Back/Spine/Pelvis: Cervical Spine: normal cervical lordosis Thoracic/Lumbar Spine: thoracic and lumbar spine normal to inspection Skin: General skin exam: no rashes or lesions noted Neuro: General: patient oriented x3, gait normal, tone normal, moves all extremities, confusion and Unable to assess gait Cranial nerves: Yes Equal, round and reactive pupils present Cognition (Neuro): abnormal cognition Gait exam (Neuro): Unable to assess gait Extrem: General: Yes normal to inspection, Yes full ROM, Yes capillary refill normal and Yes no pedal edema Left upper extremity: no edema Psych: Appearance: grossly normal Mental Status: mental status grossly normal Affect: normal affect Attitude: cooperative Thought process: Normal thought process present Thought content: Normal thought content present Insight: Good insight present (Psych) Objective Data Labs CBC & Chem 7: 01/01/22 09:02 01/04/22 08:17 Labs: Laboratory Results - last 24 hr 01/04/22 01/04/22 01/04/22 07:23 08:17 11:18 Sodium 141 Potassium 4.8 Chloride 108 Carbon Dioxide 18 L Anion Gap 20 BUN 84 H Creatinine 4.83 H* Estim Creat Clear Calc 10.3 Estimated GFR 12 POC Glucose 132 H 206 H Random Glucose 166 H Calcium 8.6 01/04/22 01/04/22 16:03 19:29 Sodium Potassium Chloride Carbon Dioxide Anion Gap BUN Creatinine Estim Creat Clear Calc Estimated GFR POC Glucose 138 H 207 H Random Glucose Calcium Microbiology Microbiology Results: Microbiology 12/17/21 Unknown Urine Other - Kidney Left Urine Culture - Final Enterococcus raffinosus Lalitha albicans 12/16/21 22:37 Urine clean catch - Urine cowart top Urine Culture - Final Procedures Date of Service Date of Service: 01/05/22 Assessment & Plan Assessment and plan (1) Metabolic encephalopathy: Status: Acute (2) Acute kidney injury: Status: Acute Assessment and Plan: 81 year-old man with CKD4,? recurrent nephrolithiasis, colon CA s/p colostomy, essential HTN, DM2, and PTSD who presents today with worsening confusion with alternating lethargy and agitated delirium for the past 2 days.? Found to have ESTUARDO with serum creatinine up to 9.7 from baseline of 3, uremia with BUN of 128, and severe metabolic acidosis with serum bicarbonate of 6 and venous pH of 7.22. ESTUARDO on CKD4 On 12/17 Dr. Kang did cystoscopy, left stent removal,? left retrograde, left renal pelvis aspiration, left stent placement, right retrograde,?right stent placement SCr trending down slowly, no plan for nephrostomy tubes nephrology, urology following Plan 81 year-old man with CKD4, recurrent nephrolithiasis, colon CA s/p colostomy, essential HTN, DM2, and PTSD who presents today with worsening confusion with alternating lethargy and agitated delirium for the past 2 days.? Found to have ESTUARDO with serum creatinine up to 9.7 from baseline of 3, uremia with BUN of 128, and severe metabolic acidosis with serum bicarbonate of 6 and venous pH of 7.22. ESTUARDO on CKD4 On 12/17 Dr. Kang did cystoscopy, left stent removal,? left retrograde, left renal pelvis aspiration, left stent placement, right retrograde,?right stent placement SCr trending down slowly, no plan for nephrostomy tubes nephrology, urology following creat was improving now worse will check urine and renal US IVF in the meantime Chronic urinary retention--with difficult bain insertion, leave in at this time anemia of chronic disease, d/t CKD chronic normocytic anemia s/p 1U blood 12/29, with some improvement in H/H procrit low iron will order IV iron hyperK resolved severe metabolic acidosis continue bicarbonate replacement mild hypernatremia resolved Progress Note: Quality Stroke Does the patient have a stroke diagnosis?: No
[2022-01-05 07:27] VITALS: BP 149/67; PULSE 78; RESP 22; TEMP 36.4; O2SAT 94
[2022-01-05 07:29] LABS: Glucose, Whole Blood 142 mg/dL (60-115)
[2022-01-05] MEDS: Sodium Bicarbonate 650 MG TABLET PO ×3 (08:25→20:42)
[2022-01-05] MEDS: oxyCODONE HCl Immed Release 5 MG TABLET PO (08:25)
[2022-01-05] MEDS: Cholecalciferol (Vitamin D3) 25 MCG TABLET 50 MCG PO (08:25)
[2022-01-05] MEDS: carvediloL 12.5 MG TABLET PO ×2 (08:25→20:42)
[2022-01-05] MEDS: Zinc Sulfate 220 MG CAPSULE PO (08:25)
[2022-01-05] MEDS: Multivitamin TABLET 1 TAB PO (08:26)
[2022-01-05] MEDS: hydrALAZINE HCl 50 MG TABLET PO ×3 (08:26→20:42)
[2022-01-05] MEDS: Magnesium Oxide 400 MG TABLET PO ×2 (08:26→20:42)
[2022-01-05] MEDS: amLODIPine Besylate 5 MG TABLET PO ×2 (08:26→20:43)
[2022-01-05] MEDS: Famotidine 20 MG TABLET PO (08:26)
[2022-01-05] MEDS: Docusate Sodium 100 MG CAPSULE PO (08:26)
[2022-01-05] MEDS: Cyanocobalamin (Vitamin B-12) 1,000 MCG TABLET 1000 MCG PO (08:26)
[2022-01-05] MEDS: Nystatin Powder 15 GM BOTTLE 1 APPL TOPICAL ×2 (08:39→20:44)
--- NOTE | 2022-01-05 10:58 | P.PNIM_ITS ---
Subjective Subjective Date of Service: 01/05/22 Interval History: seen/examined, no new issues, no new issues, doing ok, was agitated this morning Review of Systems no fever no new confusion Physical Exam Vital Signs: Vital Signs: Last Vital Signs Temp 97.6 F 01/05/22 07:27 Pulse 78 01/05/22 07:27 Resp 22 H 01/05/22 07:27 BP 149/67 H 01/05/22 07:27 Pulse Ox 94 01/05/22 07:27 O2 Del Method 01/05/22 07:27 O2 Flow Rate 6 12/17/21 16:45 BMI result Body Mass Index 19.9 Objective Data Active Medications Acetaminophen (Acetaminophen 325 Mg Tablet) 650 mg PO Q6H PRN PRN Reason: Pain, Mild (Pain Scale 1-3) Last Admin: 01/01/22 02:58 Dose: 650 mg Documented By: PINEDA Acetaminophen (Acetaminophen 325 Mg Tablet) 650 mg PO ONCE PRN PRN Reason: Pain, Mild (Pain Scale 1-3) Amlodipine Besylate (Amlodipine Besylate 5 Mg Tablet) 5 mg PO BID [facility]; Protocol Last Admin: 01/05/22 08:26 Dose: 5 mg Documented By: GRAHAM Atorvastatin Calcium (Atorvastatin Calcium 10 Mg Tablet) 10 mg PO BEDTIME [facility] Last Admin: 01/04/22 21:23 Dose: 10 mg Documented By: ANASTACIA Calcium Carbonate (Calcium Carbonate 500 Mg Tablet) 1,000 mg PO BID [facility] Last Admin: 01/05/22 08:26 Dose: 1,000 mg Documented By: GRAHAM Carvedilol (Carvedilol 12.5 Mg Tablet) 12.5 mg PO BID [facility]; Protocol Last Admin: 01/05/22 08:25 Dose: 12.5 mg Documented By: GRAHAM Cyanocobalamin (Cyanocobalamin (Vitamin B-12) 1,000 Mcg Tablet) 1,000 mcg PO DAILY [facility] Last Admin: 01/05/22 08:26 Dose: 1,000 mcg Documented By: GRAHAM Dextrose (Dextrose 50 % 25 Gm/50 Ml Syringe) 25 gm IVPUSH Q15M PRN; Protocol PRN Reason: per Hypoglycemia Standing Ord. Dipyridamole/Aspirin (Aspirin/Dipyridamole Er 25/200 Cpmp.12hr) 1 cap PO BID [facility] Last Admin: 01/05/22 08:26 Dose: 1 cap Documented By: GRAHAM Docusate Sodium (Docusate Sodium 100 Mg Capsule) 100 mg PO DAILY [facility] Last Admin: 01/05/22 08:26 Dose: 100 mg Documented By: GRAHAM Famotidine (Famotidine 20 Mg Tablet) 20 mg PO DAILY [facility] Last Admin: 01/05/22 08:26 Dose: 20 mg Documented By: GRAHAM Glucose (Glucose Gel 15 Gm Gel..Gram.) 15 gm PO Q15M PRN; Protocol PRN Reason: per Hypoglycemia Standing Ord. Heparin Sodium (Porcine) (Heparin Sodium,Porcine 5,000 Unit/Ml Vial) 5,000 unit SUBCUT Q12H [facility] Last Admin: 01/04/22 21:22 Dose: 5,000 unit Documented By: ANASTACIA Hydralazine HCl (Hydralazine Hcl 50 Mg Tablet) 50 mg PO TID [facility]; Protocol Last Admin: 01/05/22 08:26 Dose: 50 mg Documented By: GRAHAM Iron Sucrose 250 mg/ Sodium (Chloride) 112.5 mls @ 112.5 mls/hr IV DAILY [facility] Stop: 01/08/22 09:59 Insulin Human Lispro (Insulin Lispro 100 Unit/Ml 3 Ml Vial) 0 unit SUBCUT QIDACHS [facility]; Protocol Last Admin: 01/05/22 07:39 Dose: Not Given Documented By: GRAHAM Non-Admin Reason: No Insulin Coverage Magnesium Oxide (Magnesium Oxide 400 Mg Tablet) 400 mg PO BID [facility] Last Admin: 01/05/22 08:26 Dose: 400 mg Documented By: GRAHAM Melatonin (Melatonin 3 Mg Tablet) 6 mg PO BEDTIME PRN PRN Reason: insomnia Last Admin: 01/03/22 20:27 Dose: 6 mg Documented By: JUAN Multivitamins/Vitamin C (Multivitamin Tablet) 1 tab PO DAILY [facility] Last Admin: 01/05/22 08:26 Dose: 1 tab Documented By: GRAHAM Nystatin (Nystatin Powder 15 Gm Bottle) 1 appl TOPICAL BID [facility]; Protocol Last Admin: 01/05/22 08:39 Dose: 1 appl Documented By: GRAHAM Ondansetron HCl (Ondansetron Hcl 4 Mg/2 Ml Vial) 4 mg IVPUSH Q8H PRN PRN Reason: Nausea and Vomiting Ondansetron HCl (Ondansetron Hcl 4 Mg/2 Ml Vial) 4 mg IVPUSH ONCE PRN PRN Reason: Nausea and Vomiting Oxycodone HCl (Oxycodone Hcl Immed Release 5 Mg Tablet) 5 mg PO Q4H PRN PRN Reason: Pain, Severe (Pain Scale 7-10) Last Admin: 01/05/22 08:25 Dose: 5 mg Documented By: GRAHAM Pharmacy Consult (Consult Rx Perform Med Rec) 1 each MISCELLANE ONCE PRN PRN Reason: Consult order Sodium Bicarbonate (Sodium Bicarbonate 650 Mg Tablet) 650 mg PO TID [facility] Last Admin: 01/05/22 08:25 Dose: 650 mg Documented By: GRAHAM Sodium Chloride (0.9 % Sodium Chloride Flush 3 Ml Syringe) 3 ml IVFLUSH QSHIFT [facility] Last Admin: 01/05/22 08:27 Dose: 3 ml Documented By: GRAHAM Tamsulosin HCl (Tamsulosin Hcl 0.4 Mg Capsule) 0.4 mg PO BEDTIME [facility] Last Admin: 01/04/22 21:23 Dose: 0.4 mg Documented By: ANASTACIA Vitamin D (Cholecalciferol (Vitamin D3) 25 Mcg Tablet) 50 mcg PO DAILY [facility] Last Admin: 01/05/22 08:25 Dose: 50 mcg Documented By: GRAHAM Zinc Sulfate (Zinc Sulfate 220 Mg Capsule) 220 mg PO DAILY [facility] Last Admin: 01/05/22 08:25 Dose: 220 mg Documented By: GRAHAM Labs CBC & Chem 7: 01/01/22 09:02 01/04/22 08:17 Labs: Laboratory Results - last 24 hr 01/04/22 01/04/22 01/04/22 11:18 16:03 19:29 POC Glucose 206 H 138 H 207 H 01/05/22 07:15 POC Glucose 142 H Assessment and Plan (1) Acute kidney injury: Status: Acute Plan 81 year-old man with CKD4, recurrent nephrolithiasis, colon CA s/p colostomy, essential HTN, DM2, and PTSD who presents today with worsening confusion with alternating lethargy and agitated delirium for the past 2 days.? Found to have DELFINO with serum creatinine up to 9.7 from baseline of 3, uremia with BUN of 128, and severe metabolic acidosis with serum bicarbonate of 6 and venous pH of 7.22. DELFINO on CKD4 On 12/17 Dr. Kang did cystoscopy, left stent removal,? left retrograde, left renal pelvis aspiration, left stent placement, right retrograde,?right stent placement SCr trending down slowly, no plan for nephrostomy tubes nephrology, urology following [place] stable at 4+, recheck labs today Chronic urinary retention--with difficult bain insertion, leave in at this time anemia of chronic disease, d/t CKD chronic normocytic anemia s/p 1U blood 12/29, with some improvement in H/H procrit hyperK resolved severe metabolic acidosis continue bicarbonate replacement mild hypernatremia resolved metabolic encephalopathy suspect due to uremia/DELFINO may have toxic component from levofloxacin as well [he was prescribed this empirically for UTI as outpt]; improving. still get confused at night, but clear during the day hypoMg due to renal wasting resolved hx CVA Aggrenox HTN continue carvedilol + hydralazine + amlodipine DM2 hold sitagliptin, give correction-dose lispro VTE ppx: SCDs DISPO want to take him home need for inpatient: ongoing management for delfino, patient is appealing discharge Discharge if labs not signficantly change Quality Stroke Does the patient have a stroke diagnosis?: No VTE Prior VTE?: No VTE Risk Level:: Medical - moderate - high VTE Device Contraindication: N/A - Device Ordered VTE Drug Contraindication: N/A - Med Ordered
[2022-01-05 11:47] LABS: Anion Gap 17 (12-20); Blood Urea Nitrogen 75 mg/dL (9-16); Calcium 9.1 mg/dL (8.4-10.2); Carbon Dioxide 21 mmol/L (22-29); Chloride 108 mmol/L (96-108); Creatinine Clr Calc Pharmacy 11.1; Estimated Glomerular Filt Rate 13; Glucose Random 170 mg/dL (60-115); Potassium 5.3 mmol/L (3.3-5.1); Sodium 141 mmol/L (135-145)
[2022-01-05 12:00] VITALS: BP 142/66; PULSE 71; RESP 18; TEMP 36.6; O2SAT 97
[2022-01-05 12:06] LABS: Glucose, Whole Blood 158 mg/dL (60-115)
[2022-01-05] MEDS: Insulin Lispro 100 UNIT/ML 3 ML VIAL SUBCUT ×2 (13:01→20:43)
--- NOTE | 2022-01-05 14:42 | MHC.CM.PN ---
dr galaviz cancelled dc does not feel pt stable
[2022-01-05] MEDS: SODIUM CHLORIDE 0.9% IV (15:26)
[2022-01-05] MEDS: IRON SUCROSE COMPLEX IV (15:26)
[2022-01-05 16:00] VITALS: BP 114/56; PULSE 69; RESP 13; TEMP 36.8; O2SAT 96
[2022-01-05 17:05] LABS: Glucose, Whole Blood 139 mg/dL (60-115)
[2022-01-05 19:54] VITALS: BP 121/59; PULSE 73; RESP 13; TEMP 36.8; O2SAT 92
[2022-01-05 20:32] LABS: Glucose, Whole Blood 209 mg/dL (60-115)
[2022-01-05] MEDS: Tamsulosin HCL 0.4 MG CAPSULE PO (20:43)
[2022-01-05] MEDS: Atorvastatin Calcium 10 MG TABLET PO (20:43)
[2022-01-05 21:04] LABS: Appearance Urine Cloudy; Color Urine Yellow; Glucose Urine UA Negative (Negative); Leukocyte Esterase Urine Large (3+) (Negative); Nitrite Urine Negative (Negative); Specific Gravity - Urine 1.015 (1.005-1.025); UMIC TRIGGER UA YES; Urine Blood Large (3+) (Negative); Urine Ketones Negative (Negative); Urine Protein 100 (2+) mg/dL (Neg-Trace)
[2022-01-05 21:14] LABS: Creatinine Urine 62.89 mg/dL
[2022-01-05 21:16] LABS: Osmolality Urine 374 mosm/kg (373-1093)
[2022-01-05 21:18] LABS: Bacteria Urine 3+ (None Seen); RBC Urine >20 /HPF (0-2); WBC Clumps Urine Present; WBC Urine >50 /HPF (0-5)
[2022-01-05 23:07] VITALS: BP 113/56; PULSE 67; RESP 17; TEMP 36.7; O2SAT 95
[2022-01-05] MEDS: Heparin Sodium,Porcine 5,000 UNIT/ML VIAL 5000 UNIT SUBCUT (23:53)
[2022-01-06] MEDS: OLANZapine 10 MG VIAL 5 MG IM ×2 (01:53→03:24)
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
[2022-01-06 07:39] VITALS: BP 154/73; PULSE 76; RESP 18; TEMP 37.1; O2SAT 98
--- NOTE | 2022-01-06 09:04 | P.PNNP_ITS ---
Subjective Subjective Date of Service: 01/06/22 Principal diagnosis: ESTUARDO Interval history: seen/examined, no new issues, no new issues, doing ok, was agitated this morning Physical Exam Vital Signs: Vital Signs: Last Vital Signs Temp 98.7 F 01/06/22 07:39 Pulse 76 01/06/22 07:39 Resp 18 01/06/22 07:39 BP 154/73 H 01/06/22 07:39 Pulse Ox 98 01/06/22 07:39 O2 Del Method 01/06/22 07:39 O2 Flow Rate 6 12/17/21 16:45 BMI result Body Mass Index 19.9 Const: Other: Gen: ill appearing, alert and more coherent HEENT: sclera anicteric, moist mucus membranes Neck: supple Lungs: clear to auscultation bilaterally Heart: regular rate and rhythm, no murmurs Abd: soft, non-tender, non-distended, colostomy in place draining liquid brown stool Ext: no edema Skin: rash on chest wall, old Neuro: somnolent, awakens only briefly Psych: impaired insight General: cooperative, healthy appearing, comfortable, no acute distress, alert, awake and confusion Nutritional Appearance: well nourished and thin Orientation/consciousness: patient oriented x3 and confusion Limitations: no limitations HEENT: Head: Yes normal to inspection and Yes atraumatic Ears: hearing grossly normal bilaterally and external ears normal General nose exam: Normal external nose present, no nasal discharge noted and no epistaxis Face and sinus: Yes normal facial exam, No abrasion and No laceration Mouth: Normal oral and palatal mucosa present, moist mucous membranes, no drooling and no muffled voice Eyes: General: appearance normal, both eyes and all related structures Periorbital: periorbital findings normal Eyelids: Yes eyelids normal Conjunctivae: conjunctivae normal Pupils: Equal, round and reactive pupils present EOM: EOMs intact bilaterally Neck: Neck: Yes normal visual inspection, Yes full ROM, Yes no lymphadenopathy, Yes trachea midline and Yes supple Chest: Chest palpation & inspection: normal inspection of the chest Resp: Effort & Inspection: normal respiratory effort, able to speak in complete sentences and no respiratory distress Auscultation: clear to auscultation bilaterally and diminished lung sounds Cardio: Jugular venous distension: no JVD Palpation: no palpable S3 Rate: regular rate and tachycardic Rhythm: regular rhythm Heart sounds: S1 normal heart sound present and S2 normal heart sound present GI: Inspection: Yes normal to inspection and No distended Palpation (GI): Soft to palpation Auscultation: normal bowel sounds Back/Spine/Pelvis: Cervical Spine: normal cervical lordosis Thoracic/Lumbar Spine: thoracic and lumbar spine normal to inspection Skin: General skin exam: no rashes or lesions noted Neuro: General: patient oriented x3, gait normal, tone normal, moves all extremities, confusion and Unable to assess gait Cranial nerves: Yes Equal, round and reactive pupils present Cognition (Neuro): abnormal cognition Gait exam (Neuro): Unable to assess gait Extrem: General: Yes normal to inspection, Yes full ROM, Yes capillary refill normal and Yes no pedal edema Left upper extremity: no edema Psych: Appearance: grossly normal Mental Status: mental status grossly normal Affect: normal affect Attitude: cooperative Thought process: Normal thought process present Thought content: Normal thought content present Insight: Good insight present (Psych) Objective Data Labs CBC & Chem 7: 01/01/22 09:02 01/05/22 11:08 Labs: Laboratory Results - last 24 hr 01/05/22 01/05/22 01/05/22 11:08 12:02 17:01 Sodium 141 Potassium 5.3 H Chloride 108 Carbon Dioxide 21 L Anion Gap 17 BUN 75 H Creatinine 4.47 H* Estim Creat Clear Calc 11.1 Estimated GFR 13 POC Glucose 158 H 139 H Random Glucose 170 H Calcium 9.1 Urine Color Urine Appearance Urine pH Ur Specific [place] Urine Protein Urine Glucose (UA) Urine Ketones Urine Blood Urine Nitrite Ur Leukocyte Esterase Urine RBC Urine WBC Urine WBC Clumps Ur Squamous Epith Cells Urine Bacteria Hyaline Casts Urine Yeast Urine Osmolality Ur Random Sodium Urine Creatinine 01/05/22 01/05/22 01/05/22 20:28 20:36 20:38 Sodium Potassium Chloride Carbon Dioxide Anion Gap BUN Creatinine Estim Creat Clear Calc Estimated GFR POC Glucose 209 H Random Glucose Calcium Urine Color Yellow Urine Appearance Cloudy Urine pH 6.0 Ur Specific [place] 1.015 Urine Protein 100 (2+) H Urine Glucose (UA) Negative Urine Ketones Negative Urine Blood Large (3+) H Urine Nitrite Negative Ur Leukocyte Esterase Large (3+) H Urine RBC >20 H Urine WBC >50 H Urine WBC Clumps Present Ur Squamous Epith Cells 6-10 Urine Bacteria 3+ Hyaline Casts 3-5 Urine Yeast Present Urine Osmolality Ur Random Sodium 64.0 Urine Creatinine 62.89 01/05/22 20:38 Sodium Potassium Chloride Carbon Dioxide Anion Gap BUN Creatinine Estim Creat Clear Calc Estimated GFR POC Glucose Random Glucose Calcium Urine Color Urine Appearance Urine pH Ur Specific [place] Urine Protein Urine Glucose (UA) Urine Ketones Urine Blood Urine Nitrite Ur Leukocyte Esterase Urine RBC Urine WBC Urine WBC Clumps Ur Squamous Epith Cells Urine Bacteria Hyaline Casts Urine Yeast Urine Osmolality 374 Ur Random Sodium Urine Creatinine Microbiology Microbiology Results: Microbiology 12/17/21 Unknown Urine Other - Kidney Left Urine Culture - Final Enterococcus raffinosus Lalitha albicans 12/16/21 22:37 Urine clean catch - Urine cowart top Urine Culture - Final Procedures Date of Service Date of Service: 01/06/22 Assessment & Plan Assessment and plan (1) Acute kidney injury: Status: Acute Assessment and Plan: stable advanced CKD anemia with iron deficiency ordered IV iron repeat labs Plan 81 year-old man with CKD4, recurrent nephrolithiasis, colon CA s/p colostomy, essential HTN, DM2, and PTSD who presents today with worsening confusion with alternating lethargy and agitated delirium for the past 2 days.? Found to have ESTUARDO with serum creatinine up to 9.7 from baseline of 3, uremia with BUN of 128, and severe metabolic acidosis with serum bicarbonate of 6 and venous pH of 7.22. ESTUARDO on CKD4 On 12/17 Dr. Kang did cystoscopy, left stent removal,? left retrograde, left renal pelvis aspiration, left stent placement, right retrograde,?right stent placement SCr trending down slowly, no plan for nephrostomy tubes nephrology, urology following SC stable at 4+, recheck labs today Chronic urinary retention--with difficult bain insertion, leave in at this time anemia of chronic disease, d/t CKD chronic normocytic anemia s/p 1U blood 12/29, with some improvement in H/H procrit hyperK resolved severe metabolic acidosis continue bicarbonate replacement mild hypernatremia resolved Progress Note: Quality Stroke Does the patient have a stroke diagnosis?: No
[2022-01-06] MEDS: hydrALAZINE HCl 50 MG TABLET PO ×3 (09:55→23:38)
[2022-01-06] MEDS: Multivitamin TABLET 1 TAB PO (09:56)
[2022-01-06] MEDS: Cholecalciferol (Vitamin D3) 25 MCG TABLET 50 MCG PO (09:56)
[2022-01-06] MEDS: Magnesium Oxide 400 MG TABLET PO ×2 (09:56→23:39)
[2022-01-06] MEDS: 0.9 % Sodium Chloride Flush 3 ML SYRINGE IVFLUSH ×3 (09:56→23:40)
[2022-01-06] MEDS: Sodium Bicarbonate 650 MG TABLET PO ×3 (09:57→23:39)
[2022-01-06] MEDS: Zinc Sulfate 220 MG CAPSULE PO (09:57)
[2022-01-06] MEDS: Docusate Sodium 100 MG CAPSULE PO (09:57)
[2022-01-06] MEDS: amLODIPine Besylate 5 MG TABLET PO ×2 (09:57→23:39)
[2022-01-06] MEDS: carvediloL 12.5 MG TABLET PO ×2 (09:57→23:38)
[2022-01-06] MEDS: Cyanocobalamin (Vitamin B-12) 1,000 MCG TABLET 1000 MCG PO (09:57)
[2022-01-06] MEDS: Famotidine 20 MG TABLET PO (09:58)
[2022-01-06] MEDS: Nystatin Powder 15 GM BOTTLE 1 APPL TOPICAL ×2 (09:59→23:39)
--- NOTE | 2022-01-06 10:05 | HO.PM.IMPN ---
Subjective Subjective Date of Service: 01/06/22 Interval History: seen/examined, no new issues, he is more alert this morning, eating Review of Systems no fever no new confusion Physical Exam Vital Signs: Vital Signs: Last Vital Signs Temp 98.7 F 01/06/22 07:39 Pulse 76 01/06/22 07:39 Resp 18 01/06/22 07:39 BP 154/73 H 01/06/22 07:39 Pulse Ox 98 01/06/22 07:39 O2 Del Method 01/06/22 07:39 O2 Flow Rate 6 12/17/21 16:45 BMI result Body Mass Index 19.9 Const: Other: General: AO X 2, no acute distress Resp: CTA bilateral CVS: S1,S2,RRR GI: +BS, NT, no distention Skin: No rash Neuro: motor grossly intact Psych: appropriate affect Objective Data Active Medications Acetaminophen (Acetaminophen 325 Mg Tablet) 650 mg PO Q6H PRN PRN Reason: Pain, Mild (Pain Scale 1-3) Last Admin: 01/01/22 02:58 Dose: 650 mg Documented By: PINEDA Acetaminophen (Acetaminophen 325 Mg Tablet) 650 mg PO ONCE PRN PRN Reason: Pain, Mild (Pain Scale 1-3) Amlodipine Besylate (Amlodipine Besylate 5 Mg Tablet) 5 mg PO BID [facility]; Protocol Last Admin: 01/05/22 20:43 Dose: 5 mg Documented By: AMA Atorvastatin Calcium (Atorvastatin Calcium 10 Mg Tablet) 10 mg PO BEDTIME [facility] Last Admin: 01/05/22 20:43 Dose: 10 mg Documented By: AMA Calcium Carbonate (Calcium Carbonate 500 Mg Tablet) 1,000 mg PO BID [facility] Last Admin: 01/05/22 20:42 Dose: 1,000 mg Documented By: AMA Carvedilol (Carvedilol 12.5 Mg Tablet) 12.5 mg PO BID [facility]; Protocol Last Admin: 01/05/22 20:42 Dose: 12.5 mg Documented By: AMA Cyanocobalamin (Cyanocobalamin (Vitamin B-12) 1,000 Mcg Tablet) 1,000 mcg PO DAILY [facility] Last Admin: 01/05/22 08:26 Dose: 1,000 mcg Documented By: GRAHAM Dextrose (Dextrose 50 % 25 Gm/50 Ml Syringe) 25 gm IVPUSH Q15M PRN; Protocol PRN Reason: per Hypoglycemia Standing Ord. Dipyridamole/Aspirin (Aspirin/Dipyridamole Er 25/200 Cpmp.12hr) 1 cap PO BID [facility] Last Admin: 01/05/22 20:43 Dose: 1 cap Documented By: AMA Docusate Sodium (Docusate Sodium 100 Mg Capsule) 100 mg PO DAILY [facility] Last Admin: 01/05/22 08:26 Dose: 100 mg Documented By: GRAHAM Famotidine (Famotidine 20 Mg Tablet) 20 mg PO DAILY [facility] Last Admin: 01/05/22 08:26 Dose: 20 mg Documented By: GRAHAM Glucose (Glucose Gel 15 Gm Gel..Gram.) 15 gm PO Q15M PRN; Protocol PRN Reason: per Hypoglycemia Standing Ord. Heparin Sodium (Porcine) (Heparin Sodium,Porcine 5,000 Unit/Ml Vial) 5,000 unit SUBCUT Q12H [facility] Last Admin: 01/05/22 23:53 Dose: 5,000 unit Documented By: AMA Hydralazine HCl (Hydralazine Hcl 50 Mg Tablet) 50 mg PO TID [facility]; Protocol Last Admin: 01/05/22 20:42 Dose: 50 mg Documented By: AMA Iron Sucrose 200 mg/ Sodium (Chloride) 110 mls @ 440 mls/hr IV DAILY [facility] Stop: 01/10/22 09:14 Insulin Human Lispro (Insulin Lispro 100 Unit/Ml 3 Ml Vial) 0 unit SUBCUT QIDACHS [facility]; Protocol Last Admin: 01/06/22 09:44 Dose: Not Given Documented By: GRAHAM Non-Admin Reason: No Insulin Coverage Magnesium Oxide (Magnesium Oxide 400 Mg Tablet) 400 mg PO BID [facility] Last Admin: 01/05/22 20:42 Dose: 400 mg Documented By: AMA Melatonin (Melatonin 3 Mg Tablet) 6 mg PO BEDTIME PRN PRN Reason: insomnia Last Admin: 01/03/22 20:27 Dose: 6 mg Documented By: JUAN Multivitamins/Vitamin C (Multivitamin Tablet) 1 tab PO DAILY [facility] Last Admin: 01/05/22 08:26 Dose: 1 tab Documented By: GRAHAM Nystatin (Nystatin Powder 15 Gm Bottle) 1 appl TOPICAL BID [facility]; Protocol Last Admin: 01/05/22 20:44 Dose: 1 appl Documented By: AMA Ondansetron HCl (Ondansetron Hcl 4 Mg/2 Ml Vial) 4 mg IVPUSH Q8H PRN PRN Reason: Nausea and Vomiting Ondansetron HCl (Ondansetron Hcl 4 Mg/2 Ml Vial) 4 mg IVPUSH ONCE PRN PRN Reason: Nausea and Vomiting Pharmacy Consult (Consult Rx Perform Med Rec) 1 each MISCELLANE ONCE PRN PRN Reason: Consult order Sodium Bicarbonate (Sodium Bicarbonate 650 Mg Tablet) 650 mg PO TID [facility] Last Admin: 01/05/22 20:42 Dose: 650 mg Documented By: AMA Sodium Chloride (0.9 % Sodium Chloride Flush 3 Ml Syringe) 3 ml IVFLUSH QSHIFT [facility] Last Admin: 01/05/22 20:43 Dose: 3 ml Documented By: AMA Tamsulosin HCl (Tamsulosin Hcl 0.4 Mg Capsule) 0.4 mg PO BEDTIME [facility] Last Admin: 01/05/22 20:43 Dose: 0.4 mg Documented By: AMA Vitamin D (Cholecalciferol (Vitamin D3) 25 Mcg Tablet) 50 mcg PO DAILY [facility] Last Admin: 01/05/22 08:25 Dose: 50 mcg Documented By: GRAHAM Zinc Sulfate (Zinc Sulfate 220 Mg Capsule) 220 mg PO DAILY [facility] Last Admin: 01/05/22 08:25 Dose: 220 mg Documented By: GRAHAM Labs CBC & Chem 7: 01/01/22 09:02 01/05/22 11:08 Labs: Laboratory Results - last 24 hr 01/05/22 01/05/22 01/05/22 11:08 12:02 17:01 Anion Gap 17 Estim Creat Clear Calc 11.1 Estimated GFR 13 POC Glucose 158 H 139 H Random Glucose 170 H Calcium 9.1 Urine Color Urine Appearance Urine pH Ur Specific [place] Urine Protein Urine Glucose (UA) Urine Ketones Urine Blood Urine Nitrite Ur Leukocyte Esterase Urine RBC Urine WBC Urine WBC Clumps Ur Squamous Epith Cells Urine Bacteria Hyaline Casts Urine Yeast Urine Osmolality Ur Random Sodium Urine Creatinine 01/05/22 01/05/22 01/05/22 20:28 20:36 20:38 Anion Gap Estim Creat Clear Calc Estimated GFR POC Glucose 209 H Random Glucose Calcium Urine Color Yellow Urine Appearance Cloudy Urine pH 6.0 Ur Specific [place] 1.015 Urine Protein 100 (2+) H Urine Glucose (UA) Negative Urine Ketones Negative Urine Blood Large (3+) H Urine Nitrite Negative Ur Leukocyte Esterase Large (3+) H Urine RBC >20 H Urine WBC >50 H Urine WBC Clumps Present Ur Squamous Epith Cells 6-10 Urine Bacteria 3+ Hyaline Casts 3-5 Urine Yeast Present Urine Osmolality Ur Random Sodium 64.0 Urine Creatinine 62.89 01/05/22 20:38 Anion Gap Estim Creat Clear Calc Estimated GFR POC Glucose Random Glucose Calcium Urine Color Urine Appearance Urine pH Ur Specific [place] Urine Protein Urine Glucose (UA) Urine Ketones Urine Blood Urine Nitrite Ur Leukocyte Esterase Urine RBC Urine WBC Urine WBC Clumps Ur Squamous Epith Cells Urine Bacteria Hyaline Casts Urine Yeast Urine Osmolality 374 Ur Random Sodium Urine Creatinine Assessment and Plan (1) Acute kidney injury: Status: Acute Plan 81 year-old man with CKD4, recurrent nephrolithiasis, colon CA s/p colostomy, essential HTN, DM2, and PTSD who presents today with worsening confusion with alternating lethargy and agitated delirium for the past 2 days.? Found to have DELFINO with serum creatinine up to 9.7 from baseline of 3, uremia with BUN of 128, and severe metabolic acidosis with serum bicarbonate of 6 and venous pH of 7.22. DELFINO on CKD4 On 12/17 Dr. Kang did cystoscopy, left stent removal,? left retrograde, left renal pelvis aspiration, left stent placement, right retrograde,?right stent placement SCr trending down slowly, no plan for nephrostomy tubes nephrology, urology following SC stable at 4+, Chronic urinary retention--with difficult bain insertion, leave in at this time anemia of chronic disease, d/t CKD chronic normocytic anemia s/p 1U blood 12/29, with some improvement in H/H procrit hyperK resolved severe metabolic acidosis continue bicarbonate replacement mild hypernatremia resolved metabolic encephalopathy suspect due to uremia/DELFINO may have toxic component from levofloxacin as well [he was prescribed this empirically for UTI as outpt]; improving. still get confused at night, but clear during the day hypoMg due to renal wasting resolved hx CVA Aggrenox HTN continue carvedilol + hydralazine + amlodipine DM2 hold sitagliptin, give correction-dose lispro VTE ppx: SCDs DISPO want to take him home need for inpatient: ongoing management for delfino, appealed dc 2 days ago however has been very frail, not able to get out of bed and was confused and didn't think was capable of caring for him at home. , this could change if he improves Quality Stroke Does the patient have a stroke diagnosis?: No VTE Prior VTE?: No VTE Risk Level:: Medical - moderate - high VTE Device Contraindication: N/A - Device Ordered VTE Drug Contraindication: N/A - Med Ordered
[2022-01-06] MEDS: Iron Sucrose Complex 200 MG in 0.9 % Sodium Chloride 100 ML 440 MG IV (10:20)
[2022-01-06 10:40] LABS: MANUAL DIFF FLAG NO
[2022-01-06 10:42] LABS: Basophils Percent Auto 0.7 % (0-2); Eosinophils Absolute Auto 0.2 X10*3/uL (0.0-0.4); Eosinophils Percent Auto 2.4 % (0-4); Hematocrit 29.5 % (42.0-52.0); Hemoglobin 9.5 g/dl (14.0-18.0); Imm Gran Abs Auto 0.04 X10*3/uL (0.00-0.03); Imm Gran Pct Auto 0.7 % (0.0-0.4); Lymphocytes Absolute Auto 1.4 X10*3/uL (1.2-4.9); Lymphocytes Percent Auto 23.2 % (20-40); Mean Corpuscular HGB Conc 32.2 g/dl (31.0-36.0); Mean Corpuscular Hemoglobin 28.2 pg (27.0-33.0); Mean Corpuscular Volume 87.5 fL (80.0-98.0); Mean Platelet Volume 10.8 fL (9.4-12.4); Monocytes Absolute Auto 0.9 X10*3/uL (0.1-1.2); Monocytes Percent Auto 13.9 % (2-11); Neutrophils Absolute Auto 3.6 x10*3/uL (2.0-8.3); Neutrophils Percent Auto 59.1 % (45-73); Platelet Count 338 X10*3/uL (160-400); Red Blood Count 3.37 X10*6/uL (4.60-5.80); Red Cell Distribution Width 18.8 % (11.0-16.0); White Blood Count 6.1 X10*3/uL (4.8-10.8)
[2022-01-06 11:11] LABS: Anion Gap 18 (12-20); Blood Urea Nitrogen 85 mg/dL (9-16); Calcium 9.1 mg/dL (8.4-10.2); Carbon Dioxide 22 mmol/L (22-29); Chloride 106 mmol/L (96-108); Creatinine Clr Calc Pharmacy 9.8; Estimated Glomerular Filt Rate 11; Glucose Random 244 mg/dL (60-115); Sodium 141 mmol/L (135-145)
[2022-01-06 12:00] VITALS: BP 136/61; PULSE 71; RESP 13; TEMP 36.9; O2SAT 96
[2022-01-06] MEDS: Insulin Lispro 100 UNIT/ML 3 ML VIAL SUBCUT ×2 (12:11→17:37)
[2022-01-06 12:35] LABS: Glucose, Whole Blood 255 mg/dL (60-115)
[2022-01-06 16:00] VITALS: BP 123/60; PULSE 66; RESP 17; TEMP 36.9; O2SAT 95
[2022-01-06 17:22] LABS: Glucose, Whole Blood 191 mg/dL (60-115)
[2022-01-06] MEDS: Acetaminophen 325 MG TABLET 650 MG PO (18:12)
[2022-01-06 20:00] VITALS: BP 125/60; PULSE 60; RESP 17; TEMP 36.6; O2SAT 96
[2022-01-06 21:10] LABS: Glucose, Whole Blood 96 mg/dL (60-115)
[2022-01-06 23:30] VITALS: BP 124/59; PULSE 69; RESP 17; TEMP 36.4; O2SAT 96
[2022-01-06] MEDS: Atorvastatin Calcium 10 MG TABLET PO (23:39)
[2022-01-06] MEDS: Tamsulosin HCL 0.4 MG CAPSULE PO (23:39)
[2022-01-06] MEDS: Heparin Sodium,Porcine 5,000 UNIT/ML VIAL 5000 UNIT SUBCUT (23:59)
[2022-01-07] MEDS: OLANZapine 10 MG VIAL 5 MG IM ×2 (03:04→04:29)
[2022-01-07] MEDS: hydrOXYzine HCL 50 MG/ML VIAL IM (04:29)
[2022-01-07 07:18] VITALS: BP 157/78; PULSE 76; RESP 20; TEMP 37.2; O2SAT 96
[2022-01-07 07:33] LABS: Glucose, Whole Blood 114 mg/dL (60-115)
[2022-01-07 07:49] LABS: Glucose, Whole Blood 131 mg/dL (60-115)
[2022-01-07] MEDS: Cholecalciferol (Vitamin D3) 25 MCG TABLET 50 MCG PO (07:49)
[2022-01-07] MEDS: Acetaminophen 325 MG TABLET 650 MG PO ×2 (07:49→17:40)
[2022-01-07] MEDS: Multivitamin TABLET 1 TAB PO (07:49)
[2022-01-07] MEDS: Sodium Bicarbonate 650 MG TABLET PO ×3 (07:49→23:37)
[2022-01-07] MEDS: amLODIPine Besylate 5 MG TABLET PO ×2 (07:49→23:37)
[2022-01-07] MEDS: Cyanocobalamin (Vitamin B-12) 1,000 MCG TABLET 1000 MCG PO (07:50)
[2022-01-07] MEDS: Magnesium Oxide 400 MG TABLET PO ×2 (07:50→23:38)
[2022-01-07] MEDS: hydrALAZINE HCl 50 MG TABLET PO ×3 (07:50→23:37)
[2022-01-07] MEDS: Famotidine 20 MG TABLET PO (07:50)
[2022-01-07] MEDS: carvediloL 12.5 MG TABLET PO ×2 (07:50→23:37)
[2022-01-07] MEDS: Zinc Sulfate 220 MG CAPSULE PO (07:50)
[2022-01-07] MEDS: Nystatin Powder 15 GM BOTTLE 1 APPL TOPICAL (07:51)
[2022-01-07] MEDS: Docusate Sodium 100 MG CAPSULE PO (07:51)
[2022-01-07 09:37] LABS: Anion Gap 17 (12-20); Blood Urea Nitrogen 86 mg/dL (9-16); Calcium 8.9 mg/dL (8.4-10.2); Carbon Dioxide 22 mmol/L (22-29); Chloride 108 mmol/L (96-108); Creatinine Clr Calc Pharmacy 9.1; Estimated Glomerular Filt Rate 10; Glucose Random 190 mg/dL (60-115); Potassium 4.9 mmol/L (3.3-5.1); Sodium 142 mmol/L (135-145)
--- NOTE | 2022-01-07 09:41 | P.PNIM_ITS ---
Subjective Subjective Date of Service: 01/07/22 Interval History: seen/examined, no new issues, he is alert, kidney function is getting worse and early uremic syndrome Review of Systems no fever no new confusion Physical Exam Vital Signs: Vital Signs: Last Vital Signs Temp 98.9 F 01/07/22 07:18 Pulse 76 01/07/22 07:18 Resp 20 01/07/22 07:18 BP 157/78 H 01/07/22 07:18 Pulse Ox 96 01/07/22 07:18 O2 Del Method 01/07/22 07:18 O2 Flow Rate 6 12/17/21 16:45 BMI result Body Mass Index 19.9 Const: Other: General: AO X 2, no acute distress Resp: CTA bilateral CVS: S1,S2,RRR GI: +BS, NT, no distention Skin: No rash Neuro: motor grossly intact Psych: appropriate affect Objective Data Active Medications Acetaminophen (Acetaminophen 325 Mg Tablet) 650 mg PO Q6H PRN PRN Reason: Pain, Mild (Pain Scale 1-3) Last Admin: 01/07/22 07:49 Dose: 650 mg Documented By: SHAI Acetaminophen (Acetaminophen 325 Mg Tablet) 650 mg PO ONCE PRN PRN Reason: Pain, Mild (Pain Scale 1-3) Amlodipine Besylate (Amlodipine Besylate 5 Mg Tablet) 5 mg PO BID [facility]; Protocol Last Admin: 01/07/22 07:49 Dose: 5 mg Documented By: SHAI Atorvastatin Calcium (Atorvastatin Calcium 10 Mg Tablet) 10 mg PO BEDTIME [facility] Last Admin: 01/06/22 23:39 Dose: 10 mg Documented By: ALEA Calcium Carbonate (Calcium Carbonate 500 Mg Tablet) 1,000 mg PO BID [facility] Last Admin: 01/07/22 07:50 Dose: 1,000 mg Documented By: SHAI Carvedilol (Carvedilol 12.5 Mg Tablet) 12.5 mg PO BID [facility]; Protocol Last Admin: 01/07/22 07:50 Dose: 12.5 mg Documented By: SHAI Cyanocobalamin (Cyanocobalamin (Vitamin B-12) 1,000 Mcg Tablet) 1,000 mcg PO DAILY [facility] Last Admin: 01/07/22 07:50 Dose: 1,000 mcg Documented By: SHAI Dextrose (Dextrose 50 % 25 Gm/50 Ml Syringe) 25 gm IVPUSH Q15M PRN; Protocol PRN Reason: per Hypoglycemia Standing Ord. Dipyridamole/Aspirin (Aspirin/Dipyridamole Er 25/200 Cpmp.12hr) 1 cap PO BID [facility] Last Admin: 01/07/22 07:50 Dose: 1 cap Documented By: SHAI Docusate Sodium (Docusate Sodium 100 Mg Capsule) 100 mg PO DAILY [facility] Last Admin: 01/07/22 07:51 Dose: 100 mg Documented By: SHAI Famotidine (Famotidine 20 Mg Tablet) 20 mg PO DAILY [facility] Last Admin: 01/07/22 07:50 Dose: 20 mg Documented By: SHAI Glucose (Glucose Gel 15 Gm Gel..Gram.) 15 gm PO Q15M PRN; Protocol PRN Reason: per Hypoglycemia Standing Ord. Heparin Sodium (Porcine) (Heparin Sodium,Porcine 5,000 Unit/Ml Vial) 5,000 unit SUBCUT Q12H [facility] Last Admin: 01/06/22 23:59 Dose: 5,000 unit Documented By: ALEA Hydralazine HCl (Hydralazine Hcl 50 Mg Tablet) 50 mg PO TID [facility]; Protocol Last Admin: 01/07/22 07:50 Dose: 50 mg Documented By: SHAI Iron Sucrose 200 mg/ Sodium (Chloride) 110 mls @ 440 mls/hr IV DAILY [facility] Stop: 01/10/22 09:14 Last Infusion: 01/06/22 10:41 Dose: 0 mls/hr Documented By: GRAHAM Insulin Human Lispro (Insulin Lispro 100 Unit/Ml 3 Ml Vial) 0 unit SUBCUT QIDACHS [facility]; Protocol Last Admin: 01/07/22 07:45 Dose: Not Given Documented By: SHIA Non-Admin Reason: No Insulin Coverage Magnesium Oxide (Magnesium Oxide 400 Mg Tablet) 400 mg PO BID [facility] Last Admin: 01/07/22 07:50 Dose: 400 mg Documented By: SHAI Melatonin (Melatonin 3 Mg Tablet) 6 mg PO BEDTIME PRN PRN Reason: insomnia Last Admin: 01/03/22 20:27 Dose: 6 mg Documented By: DESROMaria Multivitamins/Vitamin C (Multivitamin Tablet) 1 tab PO DAILY [facility] Last Admin: 01/07/22 07:49 Dose: 1 tab Documented By: SHAI Nystatin (Nystatin Powder 15 Gm Bottle) 1 appl TOPICAL BID [facility]; Protocol Last Admin: 01/07/22 07:51 Dose: 1 appl Documented By: SHAI Ondansetron HCl (Ondansetron Hcl 4 Mg/2 Ml Vial) 4 mg IVPUSH Q8H PRN PRN Reason: Nausea and Vomiting Ondansetron HCl (Ondansetron Hcl 4 Mg/2 Ml Vial) 4 mg IVPUSH ONCE PRN PRN Reason: Nausea and Vomiting Pharmacy Consult (Consult Rx Perform Med Rec) 1 each MISCELLANE ONCE PRN PRN Reason: Consult order Sodium Bicarbonate (Sodium Bicarbonate 650 Mg Tablet) 650 mg PO TID [facility] Last Admin: 01/07/22 07:49 Dose: 650 mg Documented By: SHAI Sodium Chloride (0.9 % Sodium Chloride Flush 3 Ml Syringe) 3 ml IVFLUSH QSHIFT [facility] Last Admin: 01/07/22 08:22 Dose: Not Given Documented By: SHAI Non-Admin Reason: Patient Refused Tamsulosin HCl (Tamsulosin Hcl 0.4 Mg Capsule) 0.4 mg PO BEDTIME [facility] Last Admin: 01/06/22 23:39 Dose: 0.4 mg Documented By: ALEA Vitamin D (Cholecalciferol (Vitamin D3) 25 Mcg Tablet) 50 mcg PO DAILY [facility] Last Admin: 01/07/22 07:49 Dose: 50 mcg Documented By: SHAI Zinc Sulfate (Zinc Sulfate 220 Mg Capsule) 220 mg PO DAILY [facility] Last Admin: 01/07/22 07:50 Dose: 220 mg Documented By: SHAI Labs CBC & Chem 7: 01/06/22 10:21 01/07/22 08:46 Labs: Laboratory Results - last 24 hr 01/06/22 01/06/22 01/06/22 07:37 10:21 10:21 MCV 87.5 MCH 28.2 MCHC 32.2 RDW 18.8 H Plt Count 338 MPV 10.8 Immature Gran % (Auto) 0.7 H Neut % (Auto) 59.1 Lymph % (Auto) 23.2 [place] % (Auto) 13.9 H Eos % (Auto) 2.4 Baso % (Auto) 0.7 Lymph # (Auto) 1.4 [place] # (Auto) 0.9 Eos # (Auto) 0.2 Baso # (Auto) 0.0 Abs Immat Gran (auto) 0.04 H Absolute Neuts (auto) 3.6 Absolute Nucleated RBC 0.000 Nucleated RBC % (auto) 0.0 Anion Gap 18 Estim Creat Clear Calc 9.8 Estimated GFR 11 POC Glucose 114 Random Glucose 244 H D Calcium 9.1 01/06/22 01/06/22 01/06/22 12:06 17:17 21:04 MCV MCH MCHC RDW Plt Count MPV Immature Gran % (Auto) Neut % (Auto) Lymph % (Auto) [place] % (Auto) Eos % (Auto) Baso % (Auto) Lymph # (Auto) [place] # (Auto) Eos # (Auto) Baso # (Auto) Abs Immat Gran (auto) Absolute Neuts (auto) Absolute Nucleated RBC Nucleated RBC % (auto) Anion Gap Estim Creat Clear Calc Estimated GFR POC Glucose 255 H 191 H 96 Random Glucose Calcium 01/07/22 01/07/22 07:34 08:46 MCV MCH MCHC RDW Plt Count MPV Immature Gran % (Auto) Neut % (Auto) Lymph % (Auto) [place] % (Auto) Eos % (Auto) Baso % (Auto) Lymph # (Auto) [place] # (Auto) Eos # (Auto) Baso # (Auto) Abs Immat Gran (auto) Absolute Neuts (auto) Absolute Nucleated RBC Nucleated RBC % (auto) Anion Gap 17 Estim Creat Clear Calc 9.1 Estimated GFR 10 POC Glucose 131 H Random Glucose 190 H Calcium 8.9 Assessment and Plan (1) Acute kidney injury: Status: Acute Plan 81 year-old man with CKD4, recurrent nephrolithiasis, colon CA s/p colostomy, essential HTN, DM2, and PTSD who presents today with worsening confusion with alternating lethargy and agitated delirium for the past 2 days.? Found to have ESTUARDO with serum creatinine up to 9.7 from baseline of 3, uremia with BUN of 128, and severe metabolic acidosis with serum bicarbonate of 6 and venous pH of 7.22. ESTUARDO on CKD4 On 12/17 Dr. Kang did cystoscopy, left stent removal,? left retrograde, left renal pelvis aspiration, left stent placement, right retrograde,?right stent placement SCr trending down slowly, no plan for nephrostomy tubes nephrology, urology following SC climbing up and has uremia, nephrology is arranging for dialysis Chronic urinary retention--with difficult bain insertion, leave in at this time anemia of chronic disease, d/t CKD chronic normocytic anemia s/p 1U blood 12/29, with some improvement in H/H procrit hyperK resolved severe metabolic acidosis continue bicarbonate replacement mild hypernatremia resolved metabolic encephalopathy suspect due to uremia/ESTUARDO may have toxic component from levofloxacin as well [he was prescribed this empirically for UTI as outpt]; improving. still get confused at night, but clear during the day hypoMg due to renal wasting resolved hx CVA Aggrenox HTN continue carvedilol + hydralazine + amlodipine DM2 hold sitagliptin, give correction-dose lispro VTE ppx: SCDs DISPO want to take him home need for inpatient: worsening renal failue and need for urgent dialysis Quality Stroke Does the patient have a stroke diagnosis?: No VTE Prior VTE?: No VTE Risk Level:: Medical - moderate - high VTE Device Contraindication: N/A - Device Ordered VTE Drug Contraindication: N/A - Med Ordered
[2022-01-07] MEDS: Iron Sucrose Complex 200 MG in 0.9 % Sodium Chloride 100 ML 440 MG IV (10:19)
[2022-01-07 11:06] VITALS: BP 100/55; PULSE 57; RESP 20; TEMP 36.8; O2SAT 96
[2022-01-07 11:07] LABS: Glucose, Whole Blood 230 mg/dL (60-115)
[2022-01-07] MEDS: Heparin Sodium,Porcine 5,000 UNIT/ML VIAL 5000 UNIT SUBCUT ×2 (11:22→23:38)
[2022-01-07] MEDS: Insulin Lispro 100 UNIT/ML 3 ML VIAL SUBCUT ×3 (11:22→23:38)
--- NOTE | 2022-01-07 12:00 | MHC.CLN ---
F/U PO INTAKE 25-50% DIET RX: 2000DM-APPROPRIATE PT RECEIVING ENSURE PLUS HIGH PROTEIN BID TO INCREASE KCALS PROVIDES 700KCALS, 40G PROTEIN CONTINUE TO MONITOR PO INTAKE CLOSELY
--- NOTE | 2022-01-07 13:06 | MHC.CM.PN ---
Per ROUNDS discussion, Patient has worsening Kidney function and a line is being put in for new HD. CM met with Patient and his at bedside earlier today; Patient's wished to update this CM on how she/Patient had lost the appeal but then the MD canceled the dc because Patient was NOT medically cleared for dc.CM will follow.
--- NOTE | 2022-01-07 14:18 | PM.PNNEP ---
Subjective Subjective Date of Service: 01/07/22 Principal diagnosis: ESTUARDO Interval history: Sleepy at bedside Physical Exam Vital Signs: Vital Signs: Last Vital Signs Temp 98.2 F 01/07/22 11:06 Pulse 57 01/07/22 11:06 Resp 20 01/07/22 11:06 BP 100/55 L 01/07/22 11:06 Pulse Ox 96 01/07/22 11:06 O2 Del Method 01/07/22 11:06 O2 Flow Rate 6 12/17/21 16:45 BMI result Body Mass Index 19.9 Const: General: alert Neck: Neck: Yes supple Resp: Effort & Inspection: normal respiratory effort Auscultation: clear to auscultation bilaterally Cardio: Jugular venous distension: no JVD Palpation: no palpable S3 GI: Inspection: Yes normal to inspection Auscultation: normal bowel sounds Extrem: Left upper extremity: no edema Objective Data Labs CBC & Chem 7: 01/06/22 10:21 01/07/22 08:46 Labs: Laboratory Results - last 24 hr 01/06/22 01/06/22 01/06/22 07:37 17:17 21:04 Sodium Potassium Chloride Carbon Dioxide Anion Gap BUN Creatinine Estim Creat Clear Calc Estimated GFR POC Glucose 114 191 H 96 Random Glucose Calcium 01/07/22 01/07/22 01/07/22 07:34 08:46 11:03 Sodium 142 Potassium 4.9 Chloride 108 Carbon Dioxide 22 Anion Gap 17 BUN 86 H Creatinine 5.46 H* Estim Creat Clear Calc 9.1 Estimated GFR 10 POC Glucose 131 H 230 H Random Glucose 190 H Calcium 8.9 Microbiology Microbiology Results: Microbiology 12/17/21 Unknown Urine Other - Kidney Left Urine Culture - Final Enterococcus raffinosus Lalitha albicans 12/16/21 22:37 Urine clean catch - Urine cowart top Urine Culture - Final Procedures Date of Service Date of Service: 01/07/22 Assessment & Plan Assessment and plan (1) Acute kidney injury: Status: Acute (2) CKD (chronic kidney disease) stage 4, GFR 15-29 ml/min: Status: Acute (3) Hydronephrosis: Status: Acute Plan 81 year-old man with CKD4, recurrent nephrolithiasis, colon CA s/p colostomy, essential HTN, DM2, and PTSD who presented with worsening confusion with alternating lethargy and agitated delirium for the past 2 days.? Found to have ESTUARDO with serum creatinine up to 9.7 from baseline of 3, uremia with BUN of 128, and severe metabolic acidosis with serum bicarbonate of 6 and venous pH of 7.22. With stent placement for obstructive nephropathy, his creat has slowly improved and is now down to 4.6. He is nonoliguric and uremia has cleared. Follow up with Urology Keep I > O Currently appears uremic Family wishes to try dialysis Will arrange for permcath Time Spent With Patient Time: Total time spent is greater than 50% in coordination of care (as documented) at patient's floor/unit and/or counseling patient: Progress Note: Quality Stroke Does the patient have a stroke diagnosis?: No
[2022-01-07 15:59] LABS: Glucose, Whole Blood 182 mg/dL (60-115)
[2022-01-07 16:00] VITALS: BP 105/52; PULSE 66; RESP 18; TEMP 36.4; O2SAT 95
[2022-01-07] MEDS: 0.9 % Sodium Chloride Flush 3 ML SYRINGE IVFLUSH ×2 (16:29→23:38)
[2022-01-07 16:34] VITALS: BP 105/52; PULSE 66; O2SAT 95
[2022-01-07 19:14] VITALS: BP 111/58; PULSE 80; RESP 18; TEMP 36.6; O2SAT 94
[2022-01-07 19:54] LABS: Glucose, Whole Blood 228 mg/dL (60-115)
[2022-01-07] MEDS: Melatonin 3 MG TABLET 6 MG PO (23:37)
[2022-01-07] MEDS: Tamsulosin HCL 0.4 MG CAPSULE PO (23:37)
[2022-01-07] MEDS: Atorvastatin Calcium 10 MG TABLET PO (23:38)
[2022-01-08] VITALS (8 sets, daily range): BP systolic 98–141; BP diastolic 50–78; PULSE 66–78; RESP 18–20; TEMP 36.5–37.1; O2SAT 95–97
[2022-01-08 07:34] LABS: Glucose, Whole Blood 123 mg/dL (60-115)
--- NOTE | 2022-01-08 08:46 | HO.PM.IMPN ---
Subjective Subjective Date of Service: 01/08/22 Interval History: seen/examined, no new issues, he is alert, but has some confusion Review of Systems no fever no new confusion Physical Exam Vital Signs: Vital Signs: Last Vital Signs Temp 97.7 F 01/08/22 07:49 Pulse 68 01/08/22 07:49 Resp 20 01/08/22 07:49 BP 125/59 L 01/08/22 07:49 Pulse Ox 97 01/08/22 07:49 O2 Del Method 01/08/22 07:49 O2 Flow Rate 6 12/17/21 16:45 BMI result Body Mass Index 19.9 Const: Other: General: AO X 1, no acute distress Resp: CTA bilateral CVS: S1,S2,RRR GI: +BS, NT, no distention Skin: No rash Neuro: motor grossly intact Psych: appropriate affect Objective Data Active Medications Acetaminophen (Acetaminophen 325 Mg Tablet) 650 mg PO Q6H PRN PRN Reason: Pain, Mild (Pain Scale 1-3) Last Admin: 01/07/22 17:40 Dose: 650 mg Documented By: SHAI Acetaminophen (Acetaminophen 325 Mg Tablet) 650 mg PO ONCE PRN PRN Reason: Pain, Mild (Pain Scale 1-3) Amlodipine Besylate (Amlodipine Besylate 5 Mg Tablet) 5 mg PO BID [facility]; Protocol Last Admin: 01/07/22 23:37 Dose: 5 mg Documented By: JUAN Atorvastatin Calcium (Atorvastatin Calcium 10 Mg Tablet) 10 mg PO BEDTIME [facility] Last Admin: 01/07/22 23:38 Dose: 10 mg Documented By: JUAN Calcium Carbonate (Calcium Carbonate 500 Mg Tablet) 1,000 mg PO BID [facility] Last Admin: 01/07/22 23:37 Dose: 1,000 mg Documented By: JUAN Carvedilol (Carvedilol 12.5 Mg Tablet) 12.5 mg PO BID [facility]; Protocol Last Admin: 01/07/22 23:37 Dose: 12.5 mg Documented By: JUAN Cyanocobalamin (Cyanocobalamin (Vitamin B-12) 1,000 Mcg Tablet) 1,000 mcg PO DAILY [facility] Last Admin: 01/07/22 07:50 Dose: 1,000 mcg Documented By: SHAI Dextrose (Dextrose 50 % 25 Gm/50 Ml Syringe) 25 gm IVPUSH Q15M PRN; Protocol PRN Reason: per Hypoglycemia Standing Ord. Docusate Sodium (Docusate Sodium 100 Mg Capsule) 100 mg PO DAILY [facility] Last Admin: 01/07/22 07:51 Dose: 100 mg Documented By: SHAI Famotidine (Famotidine 20 Mg Tablet) 20 mg PO DAILY [facility] Last Admin: 01/07/22 07:50 Dose: 20 mg Documented By: SHAI Glucose (Glucose Gel 15 Gm Gel..Gram.) 15 gm PO Q15M PRN; Protocol PRN Reason: per Hypoglycemia Standing Ord. Heparin Sodium (Porcine) (Heparin Sodium,Porcine 5,000 Unit/Ml Vial) 5,000 unit SUBCUT Q12H [facility] Last Admin: 01/07/22 23:38 Dose: 5,000 unit Documented By: JUAN Hydralazine HCl (Hydralazine Hcl 50 Mg Tablet) 50 mg PO TID [facility]; Protocol Last Admin: 01/07/22 23:37 Dose: 50 mg Documented By: JUAN Iron Sucrose 200 mg/ Sodium (Chloride) 110 mls @ 440 mls/hr IV DAILY [facility] Stop: 01/10/22 09:14 Last Infusion: 01/07/22 10:50 Dose: 0 mls/hr Documented By: SHAI Insulin Human Lispro (Insulin Lispro 100 Unit/Ml 3 Ml Vial) 0 unit SUBCUT QIDACHS [facility]; Protocol Last Admin: 01/07/22 23:38 Dose: 4 unit Documented By: JUAN Magnesium Oxide (Magnesium Oxide 400 Mg Tablet) 400 mg PO BID [facility] Last Admin: 01/07/22 23:38 Dose: 400 mg Documented By: JUAN Melatonin (Melatonin 3 Mg Tablet) 6 mg PO BEDTIME PRN PRN Reason: insomnia Last Admin: 01/07/22 23:37 Dose: 6 mg Documented By: JUAN Multivitamins/Vitamin C (Multivitamin Tablet) 1 tab PO DAILY [facility] Last Admin: 01/07/22 07:49 Dose: 1 tab Documented By: SHAI Nystatin (Nystatin Powder 15 Gm Bottle) 1 appl TOPICAL BID [facility]; Protocol Last Admin: 01/07/22 23:39 Dose: Not Given Documented By: JUAN Non-Admin Reason: Previously Administered Ondansetron HCl (Ondansetron Hcl 4 Mg/2 Ml Vial) 4 mg IVPUSH Q8H PRN PRN Reason: Nausea and Vomiting Ondansetron HCl (Ondansetron Hcl 4 Mg/2 Ml Vial) 4 mg IVPUSH ONCE PRN PRN Reason: Nausea and Vomiting Pharmacy Consult (Consult Rx Perform Med Rec) 1 each MISCELLANE ONCE PRN PRN Reason: Consult order Sodium Bicarbonate (Sodium Bicarbonate 650 Mg Tablet) 650 mg PO TID [facility] Last Admin: 01/07/22 23:37 Dose: 650 mg Documented By: JUAN Sodium Chloride (0.9 % Sodium Chloride Flush 3 Ml Syringe) 3 ml IVFLUSH QSHIFT [facility] Last Admin: 01/07/22 23:38 Dose: 3 ml Documented By: JUAN Tamsulosin HCl (Tamsulosin Hcl 0.4 Mg Capsule) 0.4 mg PO BEDTIME [facility] Last Admin: 01/07/22 23:37 Dose: 0.4 mg Documented By: JUAN Vitamin D (Cholecalciferol (Vitamin D3) 25 Mcg Tablet) 50 mcg PO DAILY [facility] Last Admin: 01/07/22 07:49 Dose: 50 mcg Documented By: FARIBA-CELESTE Zinc Sulfate (Zinc Sulfate 220 Mg Capsule) 220 mg PO DAILY [facility] Last Admin: 01/07/22 07:50 Dose: 220 mg Documented By: SHAI Labs CBC & Chem 7: 01/06/22 10:21 01/07/22 08:46 Labs: Laboratory Results - last 24 hr 01/07/22 01/07/22 01/07/22 08:46 11:03 15:55 Anion Gap 17 Estim Creat Clear Calc 9.1 Estimated GFR 10 POC Glucose 230 H 182 H Random Glucose 190 H Calcium 8.9 01/07/22 01/08/22 19:49 07:17 Anion Gap Estim Creat Clear Calc Estimated GFR POC Glucose 228 H 123 H Random Glucose Calcium Assessment and Plan (1) Acute kidney injury: Status: Acute Plan 81 year-old man with CKD4, recurrent nephrolithiasis, colon CA s/p colostomy, essential HTN, DM2, and PTSD who presents today with worsening confusion with alternating lethargy and agitated delirium for the past 2 days.? Found to have ESTUARDO with serum creatinine up to 9.7 from baseline of 3, uremia with BUN of 128, and severe metabolic acidosis with serum bicarbonate of 6 and venous pH of 7.22. ESTUARDO on CKD4 On 12/17 Dr. Kang did cystoscopy, left stent removal,? left retrograde, left renal pelvis aspiration, left stent placement, right retrograde,?right stent placement SCr trending down slowly, no plan for nephrostomy tubes at this point nephrology, urology following SC climbing up and has uremia, nephrology is arranging for dialysis Chronic urinary retention--with difficult bain insertion, leave in at this time anemia of chronic disease, d/t CKD chronic normocytic anemia s/p 1U blood 12/29, with some improvement in H/H procrit hyperK resolved severe metabolic acidosis continue bicarbonate replacement mild hypernatremia resolved metabolic encephalopathy suspect due to uremia/ESTUARDO may have toxic component from levofloxacin as well [he was prescribed this empirically for UTI as outpt]; improving. still get confused at night, but clear during the day hypoMg due to renal wasting resolved hx CVA Aggrenox HTN continue carvedilol + hydralazine + amlodipine DM2 hold sitagliptin, give correction-dose lispro VTE ppx: SCDs DISPO want to take him home need for inpatient: worsening renal failue and need for urgent dialysis once catheter inserted tomorrow, has to be off aggrenox for sevreal days according to IR Quality Stroke Does the patient have a stroke diagnosis?: No VTE Prior VTE?: No VTE Risk Level:: Medical - moderate - high VTE Device Contraindication: N/A - Device Ordered VTE Drug Contraindication: N/A - Med Ordered
[2022-01-08] MEDS: Heparin Sodium,Porcine 5,000 UNIT/ML VIAL 5000 UNIT SUBCUT ×2 (09:51→23:34)
[2022-01-08] MEDS: hydrALAZINE HCl 50 MG TABLET PO ×3 (09:52→20:29)
[2022-01-08] MEDS: Sodium Bicarbonate 650 MG TABLET PO ×3 (09:53→20:29)
[2022-01-08] MEDS: Cyanocobalamin (Vitamin B-12) 1,000 MCG TABLET 1000 MCG PO (09:53)
[2022-01-08] MEDS: amLODIPine Besylate 5 MG TABLET PO ×2 (09:53→20:30)
[2022-01-08] MEDS: Famotidine 20 MG TABLET PO (09:53)
[2022-01-08] MEDS: Zinc Sulfate 220 MG CAPSULE PO (09:53)
[2022-01-08] MEDS: Docusate Sodium 100 MG CAPSULE PO (09:53)
[2022-01-08] MEDS: Multivitamin TABLET 1 TAB PO (09:53)
[2022-01-08] MEDS: 0.9 % Sodium Chloride Flush 3 ML SYRINGE IVFLUSH ×2 (09:54→14:30)
[2022-01-08] MEDS: carvediloL 12.5 MG TABLET PO ×2 (09:54→20:30)
[2022-01-08] MEDS: Magnesium Oxide 400 MG TABLET PO ×2 (09:58→20:31)
[2022-01-08] MEDS: Iron Sucrose Complex 200 MG in 0.9 % Sodium Chloride 100 ML 440 MG IV (10:23)
[2022-01-08] MEDS: Cholecalciferol (Vitamin D3) 25 MCG TABLET 50 MCG PO (10:38)
--- NOTE | 2022-01-08 11:13 | PM.PNNEP ---
Subjective Subjective Date of Service: 01/10/22 Principal diagnosis: ESTUARDO Interval history: seen/examined, no new issues, he is alert, but has some confusion Physical Exam Vital Signs: Vital Signs: Last Vital Signs Temp 97.7 F 01/08/22 07:49 Pulse 68 01/08/22 10:26 Resp 20 01/08/22 07:49 BP 125/59 L 01/08/22 10:26 Pulse Ox 97 01/08/22 10:26 O2 Del Method 01/08/22 07:49 O2 Flow Rate 6 12/17/21 16:45 BMI result Body Mass Index 19.9 Neck: Neck: Yes supple Resp: Effort & Inspection: normal respiratory effort Auscultation: clear to auscultation bilaterally Cardio: Jugular venous distension: no JVD Palpation: no palpable S3 GI: Inspection: Yes normal to inspection Auscultation: normal bowel sounds Extrem: Left upper extremity: no edema Objective Data Labs CBC & Chem 7: 01/06/22 10:21 01/07/22 08:46 Labs: Laboratory Results - last 24 hr 01/07/22 01/07/22 01/08/22 15:55 19:49 07:17 POC Glucose 182 H 228 H 123 H Microbiology Microbiology Results: Microbiology 01/07/22 04:40 Urine Catheterized - Carmona Catheter Urine Culture - Preliminary Yeast 12/17/21 Unknown Urine Other - Kidney Left Urine Culture - Final Enterococcus raffinosus Lalitha albicans 12/16/21 22:37 Urine clean catch - Urine cowart top Urine Culture - Final Procedures Date of Service Date of Service: 01/08/22 Assessment & Plan Assessment and plan (1) Acute kidney injury: Status: Acute (2) CKD (chronic kidney disease) stage 4, GFR 15-29 ml/min: Status: Acute (3) Hydronephrosis: Status: Acute Plan 81 year-old man with CKD4, recurrent nephrolithiasis, colon CA s/p colostomy, essential HTN, DM2, and PTSD who presented with worsening confusion with alternating lethargy and agitated delirium for the past 2 days.? Found to have ESTUARDO with serum creatinine up to 9.7 from baseline of 3, uremia with BUN of 128, and severe metabolic acidosis with serum bicarbonate of 6 and venous pH of 7.22. With stent placement for obstructive nephropathy, his creat has slowly improved and is now down to 4.6. He is nonoliguric and uremia has cleared. Follow up with Urology Keep I > O Currently appears uremic Family wishes to try dialysis permcath scheduled for 01/09/22 Time Spent With Patient Time: Total time spent is greater than 50% in coordination of care (as documented) at patient's floor/unit and/or counseling patient: Progress Note: Quality Stroke Does the patient have a stroke diagnosis?: No
[2022-01-08 11:15] LABS: Glucose, Whole Blood 263 mg/dL (60-115)
[2022-01-08] MEDS: Insulin Lispro 100 UNIT/ML 3 ML VIAL SUBCUT ×3 (12:08→20:29)
[2022-01-08] MEDS: Acetaminophen 325 MG TABLET 650 MG PO (14:29)
[2022-01-08 16:19] LABS: Glucose, Whole Blood 200 mg/dL (60-115)
[2022-01-08 20:20] LABS: Glucose, Whole Blood 226 mg/dL (60-115)
[2022-01-08] MEDS: Atorvastatin Calcium 10 MG TABLET PO (20:30)
[2022-01-08] MEDS: Tamsulosin HCL 0.4 MG CAPSULE PO (20:30)
[2022-01-08] MEDS: Nystatin Powder 15 GM BOTTLE 1 APPL TOPICAL (20:32)
[2022-01-09 07:39] VITALS: BP 144/72; PULSE 64; RESP 16; TEMP 36.7; O2SAT 97
[2022-01-09 07:50] LABS: Glucose, Whole Blood 137 mg/dL (60-115)
[2022-01-09] MEDS: 0.9 % Sodium Chloride Flush 3 ML SYRINGE IVFLUSH ×3 (09:29→19:59)
[2022-01-09] MEDS: Iron Sucrose Complex 200 MG in 0.9 % Sodium Chloride 100 ML 440 MG IV (09:29)
--- NOTE | 2022-01-09 11:25 | P.PNNP_ITS ---
Subjective Subjective Date of Service: 01/10/22 Principal diagnosis: ESTUARDO Interval history: Events noted For [facility] today Physical Exam Vital Signs: Vital Signs: Last Vital Signs Temp 98.0 F 01/09/22 07:39 Pulse 64 01/09/22 07:39 Resp 16 01/09/22 07:39 BP 144/72 H 01/09/22 07:39 Pulse Ox 97 01/09/22 07:39 O2 Del Method 01/09/22 07:39 O2 Flow Rate 6 12/17/21 16:45 BMI result Body Mass Index 19.9 Const: General: alert Neck: Neck: Yes supple Resp: Effort & Inspection: normal respiratory effort Auscultation: clear to auscultation bilaterally Cardio: Jugular venous distension: no JVD Palpation: no palpable S3 GI: Inspection: Yes normal to inspection Auscultation: normal bowel sounds Extrem: Left upper extremity: no edema Objective Data Labs CBC & Chem 7: 01/06/22 10:21 01/07/22 08:46 Labs: Laboratory Results - last 24 hr 01/08/22 01/08/22 01/09/22 16:06 20:07 07:41 POC Glucose 200 H 226 H 137 H Microbiology Microbiology Results: Microbiology 01/07/22 04:40 Urine Catheterized - Carmona Catheter Urine Culture - Prelimi nary Yeast 12/17/21 Unknown Urine Other - Kidney Left Urine Culture - Final Enterococcus raffinosus Lalitha albicans 12/16/21 22:37 Urine clean catch - Urine cowart top Urine Culture - Final Procedures Date of Service Date of Service: 01/09/22 Assessment & Plan Assessment and plan (1) Acute kidney injury: Status: Acute (2) CKD (chronic kidney disease) stage 4, GFR 15-29 ml/min: Status: Acute (3) Hydronephrosis: Status: Acute Plan 81 year-old man with CKD4, recurrent nephrolithiasis, colon CA s/p colostomy, essential HTN, DM2, and PTSD who presented with worsening confusion with alternating lethargy and agitated delirium for the past 2 days.? Found to have ESTUARDO with serum creatinine up to 9.7 from baseline of 3, uremia with BUN of 128, and severe metabolic acidosis with serum bicarbonate of 6 and venous pH of 7.22. With stent placement for obstructive nephropathy, his creat has slowly improved and is now down to 4.6. He is nonoliguric and uremia has cleared. Follow up with Urology Keep I > O Currently appears uremic Family wishes to try dialysis permcath scheduled for today HD later today Time Spent With Patient Time: Total time spent is greater than 50% in coordination of care (as documented) at patient's floor/unit and/or counseling patient: Progress Note: Quality Stroke Does the patient have a stroke diagnosis?: No
--- NOTE | 2022-01-09 11:53 | HO.RADPN ---
RADIOLOGY Narrative Narrative: 14.5 fr 19 cm length [facility] permacath placed. Tip at cavoatrial junction.
[2022-01-09 12:11] VITALS: BP 157/73; PULSE 71; RESP 16; TEMP 36.5; O2SAT 98
--- NOTE | 2022-01-09 12:17 | MHC.CLN ---
F/U PO INTAKE REMAINS 25-50% DIET RX: 2GM NA-PT TO START HD -RECOMMEND 2200DM 2GM NA DIET PT RECEIVING ENSURE PLUS HIGH PROTEIN BID TO INCREASE KCALS PROVIDES 700KCALS, 40G PROTEIN CONTINUE TO MONITOR PO INTAKE CLOSELY
[2022-01-09 12:26] VITALS: BP 152/68; PULSE 68; PULSE 70; RESP 16; RESP 18; TEMP 37.2; O2SAT 95; O2SAT 98
[2022-01-09 12:41] VITALS: PULSE 70; RESP 18; O2SAT 96
--- NOTE | 2022-01-09 13:04 | HO.PM.IMPN ---
Subjective Subjective Date of Service: 01/09/22 Interval History: no new issues, alert, not much confusion For permcath today Review of Systems no fever no new confusion Physical Exam Vital Signs: Vital Signs: Last Vital Signs Temp 98.9 F 01/09/22 12:26 Pulse 70 01/09/22 12:41 Resp 18 01/09/22 12:41 BP 152/68 H 01/09/22 12:26 Pulse Ox 96 01/09/22 12:41 O2 Del Method 01/09/22 12:41 O2 Flow Rate 6 12/17/21 16:45 BMI result Body Mass Index 19.9 Const: Other: General: AO X 1, no acute distress Resp: CTA bilateral CVS: S1,S2,RRR GI: +BS, NT, no distention Skin: No rash Neuro: motor grossly intact Psych: appropriate affect Objective Data Active Medications Acetaminophen (Acetaminophen 325 Mg Tablet) 650 mg PO Q6H PRN PRN Reason: Pain, Mild (Pain Scale 1-3) Last Admin: 01/07/22 17:40 Dose: 650 mg Documented By: SHAI Amlodipine Besylate (Amlodipine Besylate 5 Mg Tablet) 5 mg PO BID [facility]; Protocol Last Admin: 01/09/22 09:36 Dose: Not Given Documented By: LUIS Non-Admin Reason: NPO Atorvastatin Calcium (Atorvastatin Calcium 10 Mg Tablet) 10 mg PO BEDTIME [facility] Last Admin: 01/08/22 20:30 Dose: 10 mg Documented By: CATY Calcium Carbonate (Calcium Carbonate 500 Mg Tablet) 1,000 mg PO BID [facility] Last Admin: 01/09/22 09:36 Dose: Not Given Documented By: LUIS Non-Admin Reason: NPO Carvedilol (Carvedilol 12.5 Mg Tablet) 12.5 mg PO BID [facility]; Protocol Last Admin: 01/09/22 09:36 Dose: Not Given Documented By: LUIS Non-Admin Reason: NPO Cyanocobalamin (Cyanocobalamin (Vitamin B-12) 1,000 Mcg Tablet) 1,000 mcg PO DAILY [facility] Last Admin: 01/09/22 09:36 Dose: Not Given Documented By: LUIS Non-Admin Reason: NPO Dextrose (Dextrose 50 % 25 Gm/50 Ml Syringe) 25 gm IVPUSH Q15M PRN; Protocol PRN Reason: per Hypoglycemia Standing Ord. Docusate Sodium (Docusate Sodium 100 Mg Capsule) 100 mg PO DAILY [facility] Last Admin: 01/09/22 09:36 Dose: Not Given Documented By: LUIS Non-Admin Reason: NPO Famotidine (Famotidine 20 Mg Tablet) 20 mg PO DAILY [facility] Last Admin: 01/09/22 09:36 Dose: Not Given Documented By: LUIS Non-Admin Reason: NPO Glucose (Glucose Gel 15 Gm Gel..Gram.) 15 gm PO Q15M PRN; Protocol PRN Reason: per Hypoglycemia Standing Ord. Heparin Sodium (Porcine) (Heparin Sodium,Porcine 5,000 Unit/Ml Vial) 5,000 unit SUBCUT Q12H [facility] Last Admin: 01/08/22 23:34 Dose: 5,000 unit Documented By: CATY Hydralazine HCl (Hydralazine Hcl 50 Mg Tablet) 50 mg PO TID [facility]; Protocol Last Admin: 01/09/22 09:36 Dose: Not Given Documented By: LUIS Non-Admin Reason: NPO Iron Sucrose 200 mg/ Sodium (Chloride) 110 mls @ 440 mls/hr IV DAILY [facility] Stop: 01/10/22 09:14 Last Infusion: 01/09/22 10:20 Dose: 0 mls/hr Documented By: LUIS Insulin Human Lispro (Insulin Lispro 100 Unit/Ml 3 Ml Vial) 0 unit SUBCUT QIDACHS [facility]; Protocol Last Admin: 01/09/22 09:04 Dose: Not Given Documented By: LUIS Non-Admin Reason: No Insulin Coverage Magnesium Oxide (Magnesium Oxide 400 Mg Tablet) 400 mg PO BID [facility] Last Admin: 01/09/22 09:37 Dose: Not Given Documented By: LUIS Non-Admin Reason: NPO Melatonin (Melatonin 3 Mg Tablet) 6 mg PO BEDTIME PRN PRN Reason: insomnia Last Admin: 01/07/22 23:37 Dose: 6 mg Documented By: JUAN Multivitamins/Vitamin C (Multivitamin Tablet) 1 tab PO DAILY [facility] Last Admin: 01/09/22 09:37 Dose: Not Given Documented By: LUIS Non-Admin Reason: NPO Nystatin (Nystatin Powder 15 Gm Bottle) 1 appl TOPICAL BID [facility]; Protocol Last Admin: 01/09/22 09:37 Dose: Not Given Documented By: LUIS Non-Admin Reason: Med Not Available Ondansetron HCl (Ondansetron Hcl 4 Mg/2 Ml Vial) 4 mg IVPUSH Q8H PRN PRN Reason: Nausea and Vomiting Ondansetron HCl (Ondansetron Hcl 4 Mg/2 Ml Vial) 4 mg IVPUSH ONCE PRN PRN Reason: Nausea and Vomiting Pharmacy Consult (Consult Rx Perform Med Rec) 1 each MISCELLANE ONCE PRN PRN Reason: Consult order Sodium Bicarbonate (Sodium Bicarbonate 650 Mg Tablet) 650 mg PO TID [facility] Last Admin: 01/09/22 09:37 Dose: Not Given Documented By: LUIS Non-Admin Reason: NPO Sodium Chloride (0.9 % Sodium Chloride Flush 3 Ml Syringe) 3 ml IVFLUSH QSHIFT [facility] Last Admin: 01/09/22 09:29 Dose: 3 ml Documented By: LUIS Tamsulosin HCl (Tamsulosin Hcl 0.4 Mg Capsule) 0.4 mg PO BEDTIME [facility] Last Admin: 01/08/22 20:30 Dose: 0.4 mg Documented By: CATY Vitamin D (Cholecalciferol (Vitamin D3) 25 Mcg Tablet) 50 mcg PO DAILY [facility] Last Admin: 01/09/22 09:36 Dose: Not Given Documented By: LUIS Non-Admin Reason: NPO Zinc Sulfate (Zinc Sulfate 220 Mg Capsule) 220 mg PO DAILY [facility] Last Admin: 01/09/22 09:37 Dose: Not Given Documented By: LUIS Non-Admin Reason: NPO Labs CBC & Chem 7: 01/06/22 10:21 01/07/22 08:46 Labs: Laboratory Results - last 24 hr 01/08/22 01/08/22 01/09/22 16:06 20:07 07:41 POC Glucose 200 H 226 H 137 H Microbiology Microbiology Results: Microbiology 01/07/22 04:40 Urine Culture - Preliminary Urine Catheterized - Bain Catheter Yeast Assessment and Plan (1) Acute kidney injury: Status: Acute Plan 81 year-old man with CKD4, recurrent nephrolithiasis, colon CA s/p colostomy, essential HTN, DM2, and PTSD who presents today with worsening confusion with alternating lethargy and agitated delirium for the past 2 days.? Found to have ESTUARDO with serum creatinine up to 9.7 from baseline of 3, uremia with BUN of 128, and severe metabolic acidosis with serum bicarbonate of 6 and venous pH of 7.22. ESTUARDO on CKD4 On 12/17 Dr. Kang did cystoscopy, left stent removal,? left retrograde, left renal pelvis aspiration, left stent placement, right retrograde,?right stent placement SCr trending down slowly, no plan for nephrostomy tubes at this point nephrology, urology following SC climbing up and has uremia, nephrology is arranging for dialysis. Permacath today Chronic urinary retention--with difficult bain insertion, leave in at this time anemia of chronic disease, d/t CKD chronic normocytic anemia s/p 1U blood 12/29, with some improvement in H/H procrit hyperK resolved severe metabolic acidosis continue bicarbonate replacement mild hypernatremia resolved metabolic encephalopathy suspect due to uremia/ESTUARDO may have toxic component from levofloxacin as well [he was prescribed this empirically for UTI as outpt]; improving. still get confused at night, but clear during the day hypoMg due to renal wasting resolved hx CVA Aggrenox HTN continue carvedilol + hydralazine + amlodipine DM2 hold sitagliptin, give correction-dose lispro VTE ppx: SCDs DISPO want to take him home need for inpatient: Uremia, need dialysis catheter and dialysis Quality Stroke Does the patient have a stroke diagnosis?: No VTE Prior VTE?: No VTE Risk Level:: Medical - moderate - high VTE Device Contraindication: N/A - Device Ordered VTE Drug Contraindication: N/A - Med Ordered
[2022-01-09 13:43] LABS: INTERNATIONAL NORM RATIO 1.1 (0.9-1.1)
--- NOTE | 2022-01-09 15:13 | MHC.CM.PN ---
Per ROUNDS discussion, a permacath to initiate HD is being placed today. STR/SNF appears likely and CM will follow.
[2022-01-09] MEDS: Sodium Bicarbonate 650 MG TABLET PO ×2 (18:26→19:57)
[2022-01-09] MEDS: hydrALAZINE HCl 50 MG TABLET PO ×2 (18:26→19:58)
[2022-01-09 19:33] VITALS: BP 140/79; PULSE 94; RESP 20; TEMP 37.1; O2SAT 94
[2022-01-09] MEDS: carvediloL 12.5 MG TABLET PO (19:54)
[2022-01-09] MEDS: amLODIPine Besylate 5 MG TABLET PO (19:54)
[2022-01-09] MEDS: Atorvastatin Calcium 10 MG TABLET PO (19:55)
[2022-01-09] MEDS: Tamsulosin HCL 0.4 MG CAPSULE PO (19:55)
[2022-01-09] MEDS: Magnesium Oxide 400 MG TABLET PO (19:59)
[2022-01-09] MEDS: Nystatin Powder 15 GM BOTTLE 1 APPL TOPICAL (19:59)
[2022-01-09] MEDS: Insulin Lispro 100 UNIT/ML 3 ML VIAL SUBCUT (20:00)
[2022-01-09] MEDS: Haloperidol Lactate 5 MG/ML VIAL 2.5 MG IVPUSH (20:04)
[2022-01-09 21:13] LABS: Glucose, Whole Blood 221 mg/dL (60-115)
[2022-01-10] VITALS (8 sets, daily range): BP systolic 118–164; BP diastolic 59–81; PULSE 75–87; RESP 13–20; TEMP 36.6–37; O2SAT 95–97
[2022-01-10] MEDS: ondansetron HCL 4 MG/2 ML VIAL IVPUSH ×2 (02:35→15:58)
--- NOTE | 2022-01-10 03:48 | PC.NURSE ---
While attempting to get report at change of shift, patient was yelling out, agitated, confused, attempting to get out of bed. Dr Granados notified and ordered IV Haldol. I clarified with pharmacy. Pt given IV Haldol around 2025. Pt continued to attempt to get out of bed and was pulling on his bain. Nursing Scallop Raker notified. 1:1 with patient for patient safety. science technician, pt dry heaving-Zofran given with good effect. Will continue to monitor.
[2022-01-10 07:26] LABS: Glucose, Whole Blood 176 mg/dL (60-115)
[2022-01-10] MEDS: Insulin Lispro 100 UNIT/ML 3 ML VIAL SUBCUT ×2 (09:28→21:14)
[2022-01-10 09:31] LABS: HBS Num1 0.62 mIU/mL (0-7.99); HBc Num1 0.06 S/CO (0.00-0.79); HBsAGNum1 0.31 S/CO (0.00-0.99); Hepatitis B Core Antibody Nonreactive (Nonreactive); Hepatitis B Surface Antigen Negative (Negative); ~HepC Num1 0.13 S/CO (0.00-0.79); ~Hepatitis B Surface Antibody NONREACTIVE (Nonreactive); ~Hepatitis C Antibody Nonreactive (Nonreactive)
[2022-01-10] MEDS: Cholecalciferol (Vitamin D3) 25 MCG TABLET 50 MCG PO (09:31)
[2022-01-10] MEDS: Sodium Bicarbonate 650 MG TABLET PO ×3 (09:31→19:50)
[2022-01-10] MEDS: Multivitamin TABLET 1 TAB PO (09:31)
[2022-01-10] MEDS: Docusate Sodium 100 MG CAPSULE PO (09:31)
[2022-01-10] MEDS: 0.9 % Sodium Chloride Flush 3 ML SYRINGE IVFLUSH ×3 (09:32→19:56)
[2022-01-10] MEDS: carvediloL 12.5 MG TABLET PO ×2 (09:32→19:55)
[2022-01-10] MEDS: hydrALAZINE HCl 50 MG TABLET PO ×3 (09:32→19:50)
[2022-01-10] MEDS: Zinc Sulfate 220 MG CAPSULE PO (09:32)
[2022-01-10] MEDS: Cyanocobalamin (Vitamin B-12) 1,000 MCG TABLET 1000 MCG PO (09:32)
[2022-01-10] MEDS: Famotidine 20 MG TABLET PO (09:32)
[2022-01-10] MEDS: amLODIPine Besylate 5 MG TABLET PO ×2 (09:32→19:54)
[2022-01-10] MEDS: Iron Sucrose Complex 200 MG in 0.9 % Sodium Chloride 100 ML 440 MG IV (09:34)
[2022-01-10] MEDS: Magnesium Oxide 400 MG TABLET PO ×2 (09:35→19:55)
--- NOTE | 2022-01-10 10:10 | P.PNIM_ITS ---
Subjective Subjective Date of Service: 01/10/22 Interval History: no new issues, alert, not much confusion Had first dialysis yesterday Review of Systems no fever no new confusion Physical Exam Vital Signs: Vital Signs: Last Vital Signs Temp 97.8 F 01/10/22 07:48 Pulse 87 01/10/22 09:18 Resp 18 01/10/22 07:48 BP 146/80 H 01/10/22 09:18 Pulse Ox 96 01/10/22 09:18 O2 Del Method 01/10/22 07:48 O2 Flow Rate 6 12/17/21 16:45 BMI result Body Mass Index 19.9 Const: Other: General: AO X 1, no acute distress Resp: CTA bilateral CVS: S1,S2,RRR GI: +BS, NT, no distention Skin: No rash Neuro: motor grossly intact Psych: appropriate affect Objective Data Active Medications Acetaminophen (Acetaminophen 325 Mg Tablet) 650 mg PO Q6H PRN PRN Reason: Pain, Mild (Pain Scale 1-3) Last Admin: 01/07/22 17:40 Dose: 650 mg Documented By: SHAI Amlodipine Besylate (Amlodipine Besylate 5 Mg Tablet) 5 mg PO BID [facility]; Protocol Last Admin: 01/10/22 09:32 Dose: 5 mg Documented By: JOSE Atorvastatin Calcium (Atorvastatin Calcium 10 Mg Tablet) 10 mg PO BEDTIME [facility] Last Admin: 01/09/22 19:55 Dose: 10 mg Documented By: AMA Calcium Carbonate (Calcium Carbonate 500 Mg Tablet) 1,000 mg PO BID [facility] Last Admin: 01/10/22 09:32 Dose: 1,000 mg Documented By: JOSE Carvedilol (Carvedilol 12.5 Mg Tablet) 12.5 mg PO BID [facility]; Protocol Last Admin: 01/10/22 09:32 Dose: 12.5 mg Documented By: JOSE Cyanocobalamin (Cyanocobalamin (Vitamin B-12) 1,000 Mcg Tablet) 1,000 mcg PO DAILY [facility] Last Admin: 01/10/22 09:32 Dose: 1,000 mcg Documented By: JOSE Dextrose (Dextrose 50 % 25 Gm/50 Ml Syringe) 25 gm IVPUSH Q15M PRN; Protocol PRN Reason: per Hypoglycemia Standing Ord. Docusate Sodium (Docusate Sodium 100 Mg Capsule) 100 mg PO DAILY [facility] Last Admin: 01/10/22 09:31 Dose: 100 mg Documented By: JOSE Famotidine (Famotidine 20 Mg Tablet) 20 mg PO DAILY [facility] Last Admin: 01/10/22 09:32 Dose: 20 mg Documented By: JOSE Glucose (Glucose Gel 15 Gm Gel..Gram.) 15 gm PO Q15M PRN; Protocol PRN Reason: per Hypoglycemia Standing Ord. Heparin Sodium (Porcine) (Heparin Sodium,Porcine 5,000 Unit/Ml Vial) 5,000 unit SUBCUT Q12H [facility] Last Admin: 01/08/22 23:34 Dose: 5,000 unit Documented By: CATY Hydralazine HCl (Hydralazine Hcl 50 Mg Tablet) 50 mg PO TID [facility]; Protocol Last Admin: 01/10/22 09:32 Dose: 50 mg Documented By: JOSE Insulin Human Lispro (Insulin Lispro 100 Unit/Ml 3 Ml Vial) 0 unit SUBCUT QIDACHS [facility]; Protocol Last Admin: 01/10/22 09:28 Dose: 2 unit Documented By: JOSE Magnesium Oxide (Magnesium Oxide 400 Mg Tablet) 400 mg PO BID [facility] Last Admin: 01/10/22 09:35 Dose: 400 mg Documented By: JOSE Melatonin (Melatonin 3 Mg Tablet) 6 mg PO BEDTIME PRN PRN Reason: insomnia Last Admin: 01/07/22 23:37 Dose: 6 mg Documented By: JUAN Multivitamins/Vitamin C (Multivitamin Tablet) 1 tab PO DAILY [facility] Last Admin: 01/10/22 09:31 Dose: 1 tab Documented By: JOSE Nystatin (Nystatin Powder 15 Gm Bottle) 1 appl TOPICAL BID [facility]; Protocol Last Admin: 01/10/22 09:34 Dose: Not Given Documented By: JOSE Non-Admin Reason: Med Not Available Ondansetron HCl (Ondansetron Hcl 4 Mg/2 Ml Vial) 4 mg IVPUSH Q8H PRN PRN Reason: Nausea and Vomiting Last Admin: 01/10/22 02:35 Dose: 4 mg Documented By: AMA Ondansetron HCl (Ondansetron Hcl 4 Mg/2 Ml Vial) 4 mg IVPUSH ONCE PRN PRN Reason: Nausea and Vomiting Pharmacy Consult (Consult Rx Perform Med Rec) 1 each MISCELLANE ONCE PRN PRN Reason: Consult order Sodium Bicarbonate (Sodium Bicarbonate 650 Mg Tablet) 650 mg PO TID [facility] Last Admin: 01/10/22 09:31 Dose: 650 mg Documented By: JOSE Sodium Chloride (0.9 % Sodium Chloride Flush 3 Ml Syringe) 3 ml IVFLUSH QSHIFT [facility] Last Admin: 01/10/22 09:32 Dose: 3 ml Documented By: JOSE Tamsulosin HCl (Tamsulosin Hcl 0.4 Mg Capsule) 0.4 mg PO BEDTIME [facility] Last Admin: 01/09/22 19:55 Dose: 0.4 mg Documented By: AMA Vitamin D (Cholecalciferol (Vitamin D3) 25 Mcg Tablet) 50 mcg PO DAILY [facility] Last Admin: 01/10/22 09:31 Dose: 50 mcg Documented By: JOSE Zinc Sulfate (Zinc Sulfate 220 Mg Capsule) 220 mg PO DAILY [facility] Last Admin: 01/10/22 09:32 Dose: 220 mg Documented By: JOSE Labs CBC & Chem 7: 01/06/22 10:21 01/07/22 08:46 Labs: Laboratory Results - last 24 hr 01/09/22 01/09/22 01/10/22 13:27 19:47 07:11 PT 13.0 INR 1.1 POC Glucose 221 H 176 H Microbiology Microbiology Results: Microbiology 01/07/22 04:40 Urine Culture - Final Urine Catheterized - Bain Catheter Lalitha albicans Assessment and Plan (1) Acute kidney injury: Status: Acute Plan 81 year-old man with CKD4, recurrent nephrolithiasis, colon CA s/p colostomy, essential HTN, DM2, and PTSD who presents today with worsening confusion with alternating lethargy and agitated delirium for the past 2 days.? Found to have ESTUARDO with serum creatinine up to 9.7 from baseline of 3, uremia with BUN of 128, and severe metabolic acidosis with serum bicarbonate of 6 and venous pH of 7.22. ESTUARDO on CKD4 On 12/17 Dr. Kang did cystoscopy, left stent removal,? left retrograde, left renal pelvis aspiration, left stent placement, right retrograde,?right stent placement -Creatine improved then went up again and became uremic so temp cath inserted on 01/09 and started dialysis 01/09, to have second dialysis 01/10. check labs after dialysis Chronic urinary retention--with difficult bain insertion, leave in at this time anemia of chronic disease, d/t CKD chronic normocytic anemia s/p 1U blood 12/29, with some improvement in H/H procrit hyperK resolved severe metabolic acidosis continue bicarbonate replacement mild hypernatremia resolved metabolic encephalopathy suspect due to uremia/ESTUARDO may have toxic component from levofloxacin as well [he was prescribed this empirically for UTI as outpt]; improving. still get confused at night, but clear during the day hypoMg due to renal wasting resolved hx CVA Aggrenox to be restarted HTN continue carvedilol + hydralazine + amlodipine DM2 hold sitagliptin, give correction-dose lispro VTE ppx: SCDs DISPO want to take him home need for inpatient: Uremia, need dialysis catheter and dialysis Dispo: home vs rehab Quality Stroke Does the patient have a stroke diagnosis?: No VTE Prior VTE?: No VTE Risk Level:: Medical - moderate - high VTE Device Contraindication: N/A - Device Ordered VTE Drug Contraindication: N/A - Med Ordered
--- NOTE | 2022-01-10 11:21 | W.PM.DNNEP ---
Subjective Subjective Principal diagnosis: ESTUARDO This patient was seen during dialysis. Physical Exam Vital Signs: Vital Signs: Last Vital Signs Temp 97.8 F 01/10/22 07:48 Pulse 87 01/10/22 09:18 Resp 18 01/10/22 07:48 BP 146/80 H 01/10/22 09:18 Pulse Ox 96 01/10/22 09:18 O2 Del Method 01/10/22 07:48 O2 Flow Rate 6 12/17/21 16:45 BMI result Body Mass Index 19.9 Const: General: cooperative, comfortable, alert, awake and confusion Nutritional Appearance: thin Orientation/consciousness: confusion Eyes: General: appearance normal, both eyes and all related structures Neck: Neck: Yes supple Resp: Effort & Inspection: no respiratory distress Cardio: Jugular venous distension: no JVD Palpation: no palpable S3 Rate: regular rate GI: Palpation (GI): Soft to palpation Auscultation: normal bowel sounds Neuro: General: confusion and Unable to assess gait Gait exam (Neuro): Unable to assess gait Assessment & Plan Assessment and plan (1) Acute kidney injury: Status: Acute (2) CKD (chronic kidney disease) stage 4, GFR 15-29 ml/min: Status: Acute (3) Hydronephrosis: Status: Acute Plan 81 year-old man with advanced CKD,? recurrent nephrolithiasis, colon CA s/p colostomy, essential HTN, DM2, and PTSD who presented with worsening confusion with alternating lethargy and agitated delirium .? Found to have ESTUARDO with serum creatinine up to 9.7 from baseline of 3, uremia with BUN of 128, and severe metabolic acidosis with serum bicarbonate of 6 and venous pH of 7.22. With stent placement for obstructive nephropathy, his creat has slowly improved and is now down to 4.6. He is nonoliguric No further improvement in renal function and haduremic s/s Family wishes to try dialysis ?permcath inserted on 01/09 22 First HD on 01/09/22 Second HD on 01/10/22 Needs out patient dialysis. Currently arranged for TTS first shift at [facility] If he remains in house, will dialyze again on 01/12/22( Friday) Anemia Epogen ordered Time Spent With Patient Time: Total time spent is greater than 50% in coordination of care (as documented) at patient's floor/unit and/or counseling patient: Procedures Date of Service Date of Service: 01/10/22
--- NOTE | 2022-01-10 12:04 | MHC.CM.PN ---
Per ROUNDS discussion, Patient is receiving HD today and approaching readiness for dc. Patient's has provided CM with a list of area SN[facility]. CM has updated SNF referrals to include Patient's new HD status and await any bed offers to present to Patient and his . PT is now recommending STR. CM will follow.
[2022-01-10] MEDS: Heparin Sodium,Porcine 5,000 UNIT/ML VIAL 5000 UNIT SUBCUT ×2 (13:41→23:16)
[2022-01-10 13:46] LABS: Glucose, Whole Blood 117 mg/dL (60-115)
--- NOTE | 2022-01-10 14:01 | MHC.CM.PN ---
CM met with Patient and his at bedside to discuss dc planning. Patient has had new HD X2, per and STR at preferably an on-site HD SNF([facility] or [facility]) is the goal. Patient does have a Sitter right now r/t s/s of Hallucinations and this will be a barrier to dc. CM will follow.
[2022-01-10 14:05] LABS: Creatinine Clr Calc Pharmacy 22.3; Estimated Glomerular Filt Rate 28; Glucose Random 102 mg/dL (60-115)
[2022-01-10 14:10] LABS: Hematocrit 34.2 % (42.0-52.0); Hemoglobin 10.9 g/dl (14.0-18.0); Mean Corpuscular HGB Conc 31.9 g/dl (31.0-36.0); Mean Corpuscular Hemoglobin 28.2 pg (27.0-33.0); Mean Corpuscular Volume 88.6 fL (80.0-98.0); Mean Platelet Volume 10.9 fL (9.4-12.4); Platelet Count 210 X10*3/uL (160-400); Red Blood Count 3.86 X10*6/uL (4.60-5.80); Red Cell Distribution Width 18.4 % (11.0-16.0); White Blood Count 10.8 X10*3/uL (4.8-10.8)
[2022-01-10 14:17] LABS: Anion Gap 18 (12-20); Blood Urea Nitrogen 25 mg/dL (9-16); Carbon Dioxide 18 mmol/L (22-29); Chloride 104 mmol/L (96-108); Potassium 3.7 mmol/L (3.3-5.1); Sodium 136 mmol/L (135-145)
[2022-01-10 16:18] LABS: Glucose, Whole Blood 150 mg/dL (60-115)
[2022-01-10] MEDS: Tamsulosin HCL 0.4 MG CAPSULE PO (19:54)
[2022-01-10] MEDS: Atorvastatin Calcium 10 MG TABLET PO (19:55)
[2022-01-10 20:50] LABS: Glucose, Whole Blood 174 mg/dL (60-115)
[2022-01-11 03:01] VITALS: BP 131/61; PULSE 94; RESP 20; TEMP 36.5; O2SAT 97
--- NOTE | 2022-01-11 05:48 | PC.NURSE ---
Pt's bain had 100mls of milky vivas urine output this am (had dialysis last two days). Pt slept all night. Would wake for repositioning and emptying or burping of colostomy and then would go back to sleep. Told me a few times when I woke him that he was tired and just wanted to sleep. Pt's called this am for update, which I gave. Pt sleeping with bed alarm and camera on. Will continue to monitor.
[2022-01-11 07:27] VITALS: BP 151/76; PULSE 89; RESP 20; TEMP 36.4; O2SAT 96
[2022-01-11 07:31] LABS: Glucose, Whole Blood 186 mg/dL (60-115)
[2022-01-11] MEDS: Cyanocobalamin (Vitamin B-12) 1,000 MCG TABLET 1000 MCG PO (08:35)
[2022-01-11] MEDS: Magnesium Oxide 400 MG TABLET PO ×2 (08:35→20:40)
[2022-01-11] MEDS: Zinc Sulfate 220 MG CAPSULE PO (08:35)
[2022-01-11] MEDS: Multivitamin TABLET 1 TAB PO (08:35)
[2022-01-11] MEDS: hydrALAZINE HCl 50 MG TABLET PO ×3 (08:35→20:39)
[2022-01-11] MEDS: carvediloL 12.5 MG TABLET PO ×2 (08:36→20:39)
[2022-01-11] MEDS: Cholecalciferol (Vitamin D3) 25 MCG TABLET 50 MCG PO (08:36)
[2022-01-11] MEDS: Famotidine 20 MG TABLET PO (08:36)
[2022-01-11] MEDS: amLODIPine Besylate 5 MG TABLET PO ×2 (08:36→20:39)
[2022-01-11] MEDS: Insulin Lispro 100 UNIT/ML 3 ML VIAL SUBCUT ×3 (08:37→16:43)
[2022-01-11] MEDS: Sodium Bicarbonate 650 MG TABLET PO ×3 (08:37→20:39)
[2022-01-11] MEDS: Docusate Sodium 100 MG CAPSULE PO (08:37)
[2022-01-11] MEDS: ondansetron HCL 4 MG/2 ML VIAL IVPUSH ×2 (08:43→16:49)
--- NOTE | 2022-01-11 08:51 | P.PNIM_ITS ---
Subjective Subjective Date of Service: 01/11/22 Interval History: no new issues, alert, not much confusion has had 2 dialysis so far and Cr is better He is more lucid Review of Systems no fever no new confusion Physical Exam Vital Signs: Vital Signs: Last Vital Signs Temp 97.5 F 01/11/22 07:27 Pulse 89 01/11/22 07:27 Resp 20 01/11/22 07:27 BP 151/76 H 01/11/22 07:27 Pulse Ox 96 01/11/22 07:27 O2 Del Method 01/11/22 07:27 O2 Flow Rate 6 12/17/21 16:45 BMI result Body Mass Index 19.9 Const: Other: General: AO X 1, no acute distress Resp: CTA bilateral CVS: S1,S2,RRR GI: +BS, NT, no distention Skin: No rash Neuro: motor grossly intact Psych: appropriate affect Objective Data Active Medications Acetaminophen (Acetaminophen 325 Mg Tablet) 650 mg PO Q6H PRN PRN Reason: Pain, Mild (Pain Scale 1-3) Last Admin: 01/07/22 17:40 Dose: 650 mg Documented By: SHAI Amlodipine Besylate (Amlodipine Besylate 5 Mg Tablet) 5 mg PO BID [facility]; Protocol Last Admin: 01/10/22 19:54 Dose: 5 mg Documented By: AMA Atorvastatin Calcium (Atorvastatin Calcium 10 Mg Tablet) 10 mg PO BEDTIME [facility] Last Admin: 01/10/22 19:55 Dose: 10 mg Documented By: AMA Calcium Carbonate (Calcium Carbonate 500 Mg Tablet) 1,000 mg PO BID [facility] Last Admin: 01/10/22 19:54 Dose: 1,000 mg Documented By: AMA Carvedilol (Carvedilol 12.5 Mg Tablet) 12.5 mg PO BID [facility]; Protocol Last Admin: 01/10/22 19:55 Dose: 12.5 mg Documented By: AMA Cyanocobalamin (Cyanocobalamin (Vitamin B-12) 1,000 Mcg Tablet) 1,000 mcg PO DAILY [facility] Last Admin: 01/10/22 09:32 Dose: 1,000 mcg Documented By: JOSE Dextrose (Dextrose 50 % 25 Gm/50 Ml Syringe) 25 gm IVPUSH Q15M PRN; Protocol PRN Reason: per Hypoglycemia Standing Ord. Docusate Sodium (Docusate Sodium 100 Mg Capsule) 100 mg PO DAILY [facility] Last Admin: 01/10/22 09:31 Dose: 100 mg Documented By: JOSE Famotidine (Famotidine 20 Mg Tablet) 20 mg PO DAILY [facility] Last Admin: 01/10/22 09:32 Dose: 20 mg Documented By: JOSE Glucose (Glucose Gel 15 Gm Gel..Gram.) 15 gm PO Q15M PRN; Protocol PRN Reason: per Hypoglycemia Standing Ord. Heparin Sodium (Porcine) (Heparin Sodium,Porcine 5,000 Unit/Ml Vial) 5,000 unit SUBCUT Q12H [facility] Last Admin: 01/10/22 23:16 Dose: 5,000 unit Documented By: AMA Hydralazine HCl (Hydralazine Hcl 50 Mg Tablet) 50 mg PO TID [facility]; Protocol Last Admin: 01/10/22 19:50 Dose: 50 mg Documented By: AMA Insulin Human Lispro (Insulin Lispro 100 Unit/Ml 3 Ml Vial) 0 unit SUBCUT Q IDACHS [facility]; Protocol Last Admin: 01/10/22 21:14 Dose: 2 unit Documented By: AMA Magnesium Oxide (Magnesium Oxide 400 Mg Tablet) 400 mg PO BID [facility] Last Admin: 01/10/22 19:55 Dose: 400 mg Documented By: AMA Melatonin (Melatonin 3 Mg Tablet) 6 mg PO BEDTIME PRN PRN Reason: insomnia Last Admin: 01/07/22 23:37 Dose: 6 mg Documented By: JUAN Multivitamins/Vitamin C (Multivitamin Tablet) 1 tab PO DAILY [facility] Last Admin: 01/10/22 09:31 Dose: 1 tab Documented By: JOSE Nystatin (Nystatin Powder 15 Gm Bottle) 1 appl TOPICAL BID [facility]; Protocol Last Admin: 01/10/22 19:56 Dose: Not Given Documented By: AMA Non-Admin Reason: Med Not Available Ondansetron HCl (Ondansetron Hcl 4 Mg/2 Ml Vial) 4 mg IVPUSH Q8H PRN PRN Reason: Nausea and Vomiting Last Admin: 01/10/22 15:58 Dose: 4 mg Documented By: JOSE Ondansetron HCl (Ondansetron Hcl 4 Mg/2 Ml Vial) 4 mg IVPUSH ONCE PRN PRN Reason: Nausea and Vomiting Pharmacy Consult (Consult Rx Perform Med Rec) 1 each MISCELLANE ONCE PRN PRN Reason: Consult order Sodium Bicarbonate (Sodium Bicarbonate 650 Mg Tablet) 650 mg PO TID [facility] Last Admin: 01/10/22 19:50 Dose: 650 mg Documented By: AMA Sodium Chloride (0.9 % Sodium Chloride Flush 3 Ml Syringe) 3 ml IVFLUSH QSHIFT [facility] Last Admin: 01/11/22 07:26 Dose: Not Given Documented By: UCHE Non-Admin Reason: See Note Tamsulosin HCl (Tamsulosin Hcl 0.4 Mg Capsule) 0.4 mg PO BEDTIME [facility] Last Admin: 01/10/22 19:54 Dose: 0.4 mg Documented By: AMA Vitamin D (Cholecalciferol (Vitamin D3) 25 Mcg Tablet) 50 mcg PO DAILY [facility] Last Admin: 01/10/22 09:31 Dose: 50 mcg Documented By: JOSE Zinc Sulfate (Zinc Sulfate 220 Mg Capsule) 220 mg PO DAILY [facility] Last Admin: 01/10/22 09:32 Dose: 220 mg Documented By: JOSE Labs CBC & Chem 7: 01/10/22 13:04 01/10/22 13:05 Labs: Laboratory Results - last 24 hr 01/09/22 01/10/22 01/10/22 13:27 13:04 13:05 MCV 88.6 MCH 28.2 MCHC 31.9 RDW 18.4 H Plt Count 210 D MPV 10.9 Absolute Nucleated RBC 0.000 Nucleated RBC % (auto) 0.0 Anion Gap 18 Estim Creat Clear Calc 22.3 Estimated GFR 28 POC Glucose Random Glucose 102 D Calcium 8.0 L D Hep Bs Antigen Negative Hep Bs Antibody NONREACTIVE Hep B Core Total Ab Nonreactive Hepatitis C Ab (EIA) Nonreactive 01/10/22 01/10/22 01/10/22 13:42 16:15 20:35 MCV MCH MCHC RDW Plt Count MPV Absolute Nucleated RBC Nucleated RBC % (auto) Anion Gap Estim Creat Clear Calc Estimated GFR POC Glucose 117 H 150 H 174 H Random Glucose Calcium Hep Bs Antigen Hep Bs Antibody Hep B Core Total Ab Hepatitis C Ab (EIA) 01/11/22 07:25 MCV MCH MCHC RDW Plt Count MPV Absolute Nucleated RBC Nucleated RBC % (auto) Anion Gap Estim Creat Clear Calc Estimated GFR POC Glucose 186 H Random Glucose Calcium Hep Bs Antigen Hep Bs Antibody Hep B Core Total Ab Hepatitis C Ab (EIA) Microbiology Microbiology Results: Microbiology 01/07/22 04:40 Urine Culture - Final Urine Catheterized - Bain Catheter Lalitha albicans Assessment and Plan (1) Acute kidney injury: Status: Acute Plan 81 year-old man with CKD4, recurrent nephrolithiasis, colon CA s/p colostomy, essential HTN, DM2, and PTSD who presents today with worsening confusion with alternating lethargy and agitated delirium for the past 2 days.? Found to have ESTUARDO with serum creatinine up to 9.7 from baseline of 3, uremia with BUN of 128, and severe metabolic acidosis with serum bicarbonate of 6 and venous pH of 7.22. ESTUARDO on CKD4 On 12/17 Dr. Kang did cystoscopy, left stent removal,? left retrograde, left renal pelvis aspiration, left stent placement, right retrograde,?right stent placement -Creatine improved then went up again and became uremic so temp cath inserted on 01/09 and started dialysis 01/09, to have second dialysis 01/10. check labs after dialysis Chronic urinary retention--with difficult bain insertion, leave in at this time anemia of chronic disease, d/t CKD chronic normocytic anemia s/p 1U blood 12/29, with some improvement in H/H procrit hyperK resolved severe metabolic acidosis continue bicarbonate replacement mild hypernatremia resolved metabolic encephalopathy suspect due to uremia/ESTUARDO may have toxic component from levofloxacin as well [he was prescribed this empirically for UTI as outpt]; improving. still get confused at night, but clear during the day hypoMg due to renal wasting resolved hx CVA Aggrenox to be restarted HTN continue carvedilol + hydralazine + amlodipine DM2 hold sitagliptin, give correction-dose lispro VTE ppx: SCDs DISPO want to take him home need for inpatient: Uremia, need dialysis catheter and dialysis Dispo: home vs rehab Quality Stroke Does the patient have a stroke diagnosis?: No VTE Prior VTE?: No VTE Risk Level:: Medical - moderate - high VTE Device Contraindication: N/A - Device Ordered VTE Drug Contraindication: N/A - Med Ordered
[2022-01-11 11:00] VITALS: BP 126/67; PULSE 87; RESP 18; TEMP 36.1; O2SAT 97
[2022-01-11 11:32] LABS: Glucose, Whole Blood 193 mg/dL (60-115)
[2022-01-11] MEDS: Heparin Sodium,Porcine 5,000 UNIT/ML VIAL 5000 UNIT SUBCUT ×2 (11:51→23:55)
--- NOTE | 2022-01-11 13:31 | MHC.CLN ---
F/U PO INTAKE REMAINS 25% DIET RX: 2200DM 2GM NA-CAN LIBERALIZE FOR INCREASED VARIETY PT RECEIVING ENSURE PLUS HIGH PROTEIN BID TO INCREASE KCALS PROVIDES 700KCALS, 40G PROTEIN CONTINUE TO MONITOR PO INTAKE CLOSELY
--- NOTE | 2022-01-11 14:06 | MHC.CM.PN ---
Per MD rounds patient can discharge today if a bed offer is received. Pt has a chair time 1st shirt at [facility]. They do not have availability today to offer a bed. [facility] does not have HD slote available. [facility] does not have a bed today. Follow up Friday all 3 SFS. T/W waiting for a return call from [place] kiln transfer operator. Patient will need transport to HD, if he does not receive a bed offer from [facility]. The [facility] was called for authorization for transportation. service coordinator elderly facility will let us know if [facility] will cover transport to HD. Family updated on bed search.
[2022-01-11] MEDS: 0.9 % Sodium Chloride Flush 3 ML SYRINGE IVFLUSH ×2 (14:11→20:40)
--- NOTE | 2022-01-11 15:58 | PM.PNNEP ---
Subjective Subjective Date of Service: 02/01/22 Principal diagnosis: ESTUARDO Interval history: no new issues, alert, not much confusion has had 2 dialysis so far and Cr is better He is more lucid Physical Exam Vital Signs: Vital Signs: Last Vital Signs Temp 96.9 F 01/11/22 11:00 Pulse 87 01/11/22 11:00 Resp 18 01/11/22 11:00 BP 126/67 01/11/22 11:00 Pulse Ox 97 01/11/22 11:00 O2 Del Method 01/11/22 11:00 O2 Flow Rate 6 12/17/21 16:45 BMI result Body Mass Index 19.9 Const: Other: General: AO X 1, no acute distress Resp: CTA bilateral CVS: S1,S2,RRR GI: +BS, NT, no distention Skin: No rash Neuro: motor grossly intact Psych: appropriate affect Objective Data Labs CBC & Chem 7: 01/10/22 13:04 01/10/22 13:05 Labs: Laboratory Results - last 24 hr 01/10/22 01/10/22 01/11/22 16:15 20:35 07:25 POC Glucose 150 H 174 H 186 H 01/11/22 11:28 POC Glucose 193 H Microbiology Microbiology Results: Microbiology 01/07/22 04:40 Urine Catheterized - Carmona Catheter Urine Culture - Final Lalitha albicans 12/17/21 Unknown Urine Other - Kidney Left Urine Culture - Final Enterococcus raffinosus Lalitha albicans 12/16/21 22:37 Urine clean catch - Urine cowart top Urine Culture - Final Procedures Date of Service Date of Service: 02/01/22 Assessment & Plan Assessment and plan (1) Acute kidney injury: Status: Acute (2) CKD (chronic kidney disease) stage 4, GFR 15-29 ml/min: Status: Acute (3) Hydronephrosis: Status: Acute Plan 81 year-old man with advanced CKD,? recurrent nephrolithiasis, colon CA s/p colostomy, essential HTN, DM2, and PTSD who presented with worsening confusion with alternating lethargy and agitated delirium .? Found to have ESTUARDO with serum creatinine up to 9.7 from baseline of 3, uremia with BUN of 128, and severe metabolic acidosis with serum bicarbonate of 6 and venous pH of 7.22. With stent placement for obstructive nephropathy, his creat has slowly improved and is now down to 4.6. He is nonoliguric No further improvement in renal function and haduremic s/s Family wishes to try dialysis ?permcath inserted on 01/09 22 First HD on 01/09/22 Second HD on 01/10/22 Needs out patient dialysis. Currently arranged for TTS first shift at [facility] If he remains in house, will dialyze again on 01/12/22( Friday) Anemia Epogen ordered Time Spent With Patient Time: Total time spent is greater than 50% in coordination of care (as documented) at patient's floor/unit and/or counseling patient: Progress Note: Quality Stroke Does the patient have a stroke diagnosis?: No
[2022-01-11 16:00] VITALS: BP 132/68; PULSE 82; RESP 17; TEMP 37.1; O2SAT 93
[2022-01-11 16:23] LABS: Glucose, Whole Blood 206 mg/dL (60-115)
[2022-01-11 19:52] VITALS: BP 120/63; PULSE 82; RESP 14; TEMP 37.2; O2SAT 90
[2022-01-11 20:01] LABS: Glucose, Whole Blood 146 mg/dL (60-115)
[2022-01-11] MEDS: Tamsulosin HCL 0.4 MG CAPSULE PO (20:39)
[2022-01-11] MEDS: Atorvastatin Calcium 10 MG TABLET PO (20:39)
[2022-01-12] VITALS: BP 109/62; PULSE 84; RESP 14; TEMP 36.7; O2SAT 93
[2022-01-12 03:03] VITALS: BP 121/54; PULSE 92; RESP 14; TEMP 36.8; O2SAT 97
[2022-01-12 07:25] VITALS: PULSE 89; RESP 12; TEMP 36.2
[2022-01-12 07:26] LABS: Glucose, Whole Blood 258 mg/dL (60-115)
[2022-01-12] MEDS: carvediloL 12.5 MG TABLET PO (07:45)
[2022-01-12] MEDS: Zinc Sulfate 220 MG CAPSULE PO (07:45)
[2022-01-12] MEDS: Multivitamin TABLET 1 TAB PO (07:45)
[2022-01-12] MEDS: Docusate Sodium 100 MG CAPSULE PO (07:45)
[2022-01-12] MEDS: amLODIPine Besylate 5 MG TABLET PO (07:47)
[2022-01-12] MEDS: hydrALAZINE HCl 50 MG TABLET PO (07:47)
[2022-01-12] MEDS: Sodium Bicarbonate 650 MG TABLET PO (07:47)
[2022-01-12] MEDS: Cholecalciferol (Vitamin D3) 25 MCG TABLET 50 MCG PO (07:47)
[2022-01-12] MEDS: Famotidine 20 MG TABLET PO (07:47)
[2022-01-12] MEDS: Magnesium Oxide 400 MG TABLET PO (07:48)
[2022-01-12] MEDS: 0.9 % Sodium Chloride Flush 3 ML SYRINGE IVFLUSH (07:48)
[2022-01-12] MEDS: Cyanocobalamin (Vitamin B-12) 1,000 MCG TABLET 1000 MCG PO (07:48)
[2022-01-12] MEDS: Insulin Lispro 100 UNIT/ML 3 ML VIAL SUBCUT (07:48)
[2022-01-12 11:25] LABS: Glucose, Whole Blood 122 mg/dL (60-115)
--- NOTE | 2022-01-12 11:45 | PC.NURSE ---
Patient was present in dialysis, fruit and vegetable inspector checked BP and found patient unresponsive, TUBING TESTER was called then a Code Blue code Team responded after 15minutes MD called Code, Resuscitation ended.
--- NOTE | 2022-01-12 12:11 | W.ED.CONSULT ---
Consult Details Consult Details: Called to code blue to the dialysis unit for this patient. Upon arrival, CPR in progress. Dr. Cameron in charge of running the code. Patient not intubated. large amount of vomitus in the Hypopharynx. Continuous suction required. Procedures Intubation Time out performed: No sedative: none Laryngoscope: Sara ET Tube Size: 7.5 ET Tube Uncuffed: No Tube Secured Depth (cm): 23 Tube Secured Location: lips Tube Placement Confirmation: visualized tube passing through cords and confirmation by capnometry Patient Tolerated Procedure: no complications Intubation Complications: difficult intubation ( large quantity of stomach contents in the hypopharynx and pharynx)
--- NOTE | 2022-01-12 12:32 | PM.EVENT ---
Event Note Date of Service: 01/12/22 Event Note: Code blue during dialysis, ACLS protocol follwed, no ROSC for nearly 20, pronounced at 11.43 am. briefed
--- NOTE | 2022-01-12 13:06 | P.DN_ITS ---
Discharge Sum: Prov Provider Primary care physician: Iveth Bryant MD Consults: 12/16/21 15:53 Consult to Urology Routine Consulting Provider: [facility] Reason for consultation: ESTUARDO/CKD4, SCr 9, nondraining L kidney despite stent 12/20/21 09:02 Consult to Infectious Diseases Routine Consulting Provider: [facility] [place] [facility] Reason for consultation: Pyelonephritis with enterococcus and yeast Has provider been notified: No 12/20/21 10:41 Consult to Infectious Diseases Routine Consulting Provider: Veronika Kulkarni Reason for consultation: enteroccocus in urine Discharge Sum: Diag Contributing Factors (1) Acute kidney injury: Discharge Sum: Summary Date and Time Date of admission: 12/16/21 16:57 Time of : 11:43 Summary Details: Chief Complaint: altered mental status History as per the patient's , as he is somnolent. 81 year-old man with CKD4, kidney cancer, recurrent nephrolithiasis, colon CA s/p colostomy, essential HTN, DM2, and PTSD who presents today with worsening confusion with alternating lethargy and agitated delirium for the past 2 days.? He was started on levofloxacin by his urologist 5 days ago for suspicion of UTI given that his urine was becoming cloudy and darker.? He has complained of severe nausea but has not vomited.? He was recently admitted here 11/20-11/24/21 wiith ESTUARDO/CKD4 due to dehydration attributed to Covid-19 infection.? Prior to that, he was admitted here 11/01-11/05/21 with ESTUARDO/CKD and underwent cystoscopy and left stent placement. In the ED, his creatinine was markedly elevated to 9.69 compared to his baseline of 3.05 on 11/24/21.? BUN was 128 and serum bicarbonate 6.? Nephrology was urgently consulted.? He was started on isotonic bicarbonate infusion.? Magnesium was low at 1.1 and he was given 2g of IV magnesium sulfate. Hospital course:Patient has had prolonged hospital for issues related acute on chronic renal failure, urinary obstruction, metabolic encephalopathy and electrolytes abnormalities including hypernatremia and Hyperkalemia. On 12/17 Dr. Kang did cystoscopy, left stent removal,? left retrograde, left renal pelvis aspiration, left stent placement, right retrograde,?right stent placement with that SCr improved and there was suggestion for nephrostomy tubes which patient and did not want, his creatinine started improving then later on started trending up again and developped signgs of uremia so Nephrology recommended hemodialysis and has had 2 dialysis section since. He was in dialysis again today when he became unresponsive and code blue during CPR was noted to have fecal material coming of out his mouth. He had 20 minutes of CPR per ACLS protocol, he never gained ROSC and efforts were terminated after 20 minutes and there was Asystole perisisted throughout. He likely aspirated. Chronic urinary retention--Had bain anemia of chronic disease, d/t CKD chronic normocytic anemia s/p 1U blood 12/11 with good effect. hyperKalemia--resolved. Last potassium 3.7 Severe metabolic acidosis due to renal failure--resolved with bicarbonate replacement mild hypernatremia--resolved Metabolic encephalopathy--d/t UTI, uremia and electrolytes abnormalities. UTI--treated with antibiotics hypomagnesemia duet due to renal wasting--resolved history of CVA--Aggrenox HTN-- continue carvedilol + hydralazine + amlodipine DM2--was on insulin Aspiration pneumonitis-- Cause of : sudden cardiac arrrest, aspriation was briefed about code/ Additional Data Attending physician: Liban Cameron MD
== END 2022-01-12 17:12 | disposition expired | DRG 659 ==
LOC: HO.ED 11:54 → HO.EDOVER 17:13 → HO.IMC 12-17 19:09
PROVIDERS: Internal Medicine Hypertension Specialist; Internal Medicine Nephrology; Nurse Practitioner Acute Care; Physician Assistant Medical; Radiology Diagnostic Radiology; Urology; Admitting Provider Family Medicine; Emergency Provider Emergency Medicine; PCP Internal Medicine; Visit Provider Internal Medicine
PROC: 0T788DZ Dilation of Bilateral Ureters with Intraluminal Device, Via Natural or Artificial Opening Endoscopic (ICD-10-PCS; principal; 2021-12-17 16:00)
PROC: 0JH63XZ Insertion of Tunneled Vascular Access Device into Chest Subcutaneous Tissue and Fascia, Percutaneous Approach (ICD-10-PCS; principal; 2022-01-09 14:30)
DX: N17.9 Acute kidney failure, unspecified (principal); G93.41 Metabolic encephalopathy; J69.0 Pneumonitis due to inhalation of food and vomit; E87.4 Mixed disorder of acid-base balance; E87.0 Hyperosmolality and hypernatremia; E44.0 Moderate protein-calorie malnutrition; Z68.1 Body mass index [BMI] 19.9 or less, adult; F05 Delirium due to known physiological condition; N13.30 Unspecified hydronephrosis; E11.22 Type 2 diabetes mellitus with diabetic chronic kidney disease; E86.1 Hypovolemia; D63.1 Anemia in chronic kidney disease; D64.9 Anemia, unspecified; N18.4 Chronic kidney disease, stage 4 (severe); R33.9 Retention of urine, unspecified; T88.4XXA Failed or difficult intubation, initial encounter; I12.9 Hypertensive chronic kidney disease with stage 1 through stage 4 chronic kidney disease, or unspecified chronic kidney disease; F43.10 Post-traumatic stress disorder, unspecified; E83.42 Hypomagnesemia; Z86.73 Personal history of transient ischemic attack (TIA), and cerebral infarction without residual deficits; Z93.3 Colostomy status; Z20.822 Contact with and (suspected) exposure to COVID-19; Z79.899 Other long term (current) drug therapy
CPT/HCPCS: 0241U; 36415; 36558; 70450; 71045; 74176; 76775; 76937; 80048; 80053; 81001; 81003; 82607; 82728; 82746; 82803; 82947; 83540; 83615; 83735; 83935; 84133; 84300; 84484; 85025; 85027; 85610; 85730; 86704; 86706; 86803; 86850; 86900; 86901; 86923; 87086; 87088; 87106; 87340; 90935; 92950; 93005; 97110; 97116; 97162; 97530; 99152; 99153; 99285; C1758; C1769; C2617; J0171; J0282; J0696; J0885; J1170; J1756; J2405; J2550; J3010; J3475; P9016; Q9966